=== PATIENT | female | born 1955 | race Caucasian/White ===

== ENCOUNTER → 2018-02-04 07:34 | Outpatient (CLI) | payer OTHER, SELFPAY ==
--- NOTE | 2018-02-04 13:54 | STRESSREP ---
Stress Test Report Date: 02/04/2018 Procedure: Exercise tolerance test/imaging study Indications: Chest pain; paroxysmal atrial fibrillation Consent: Per the patient Procedure: The patient exercised on a Juan protocol for 6 minutes and 22 seconds completing Stage II and 22 seconds of Stage III achieving a peak heart rate of 136 bpm (85 % predicted maximal heart rate) with a peak blood pressure 190/84 mmHg and a peak MET capacity of 7 METs. The baseline ECG demonstrated sinus bradycardia. The peak exercise ECG demonstrated somatic/motion artifact with no obvious ECG changes. There were occasional PACs and PVCs during exercise and occasional PVCs during recovery. The functional capacity was considered average. There was no complaint of chest discomfort during exercise or recovery. The examination was discontinued secondary to dyspnea and leg discomfort. Impression: 1. Technically adequate (percent predicted maximal heart rate greater than 85%) exercise tolerance test 2. Peak exercise ECG with somatic/motion artifact with no obvious ECG changes 3. There were occasional PACs and PVCs during exercise and occasional PVCs during recovery. 4. Nuclear images pending Myocardial perfusion imaging study: Technique: The patient was injected with 14.3 mCi of technetium 99m Cardiolite and subsequently rest SPECT Cardiolite nuclear imaging was obtained in the horizontal long, vertical long, and short axis views. The patient exercised on a Juan protocol for 6 minutes and 22 seconds completing Stage II and 22 seconds of Stage III achieving a peak heart rate of 136 bpm (85 % predicted maximal heart rate) with a peak blood pressure 190/84 mmHg and a peak MET capacity of 7 METs. The patient was injected with 44.7 mCi of technetium 99m Cardiolite and subsequently stress SPECT Cardiolite nuclear imaging was obtained in the horizontal long, vertical long, and short axis views. A gated Cardiolite study at peak stress was obtained. Interpretation: Rest and stress SPECT Cardiolite nuclear imaging status post realignment, normalization, and attenuation correction, demonstrates the appearance of subtle diminished tracer uptake in the mid anterior segments at rest and status post stress the appearance of more prominent diminished tracer uptake in the mid to distal anterior segments. There are similar type changes on the resting and stress polar map images. There is end systolic thickening and brightening. The gated Cardiolite study demonstrates myocardial thickening and inward wall motion. The reported LVEF is 65 %. Impression: 1. Rest and stress SPECT Cardiolite nuclear imaging demonstrate myocardial perfusion changes concerning for an area of stress-induced myocardial ischemia and portions of the mid to distal anterior segments, however, contribution from shifting soft tissue attenuation/artifact cannot be excluded. 2. The gated Cardiolite study reports an LVEF of 65 %. This note was generated with Share[employer] software. It may contain incorrect words, spelling, and punctuation that were not noted in checking the note before signing.
--- NOTE | 2018-02-04 14:04 | STRESSREP_ITS ---
Stress Test Report Date: 02/04/2018 Procedure: Exercise tolerance test/imaging study Indications: Chest pain; paroxysmal atrial fibrillation Consent: Per the patient Procedure: The patient exercised on a Juan protocol for 6 minutes and 22 seconds completing Stage II and 22 seconds of Stage III achieving a peak heart rate of 136 bpm (85 % predicted maximal heart rate) with a peak blood pressure 190/84 mmHg and a peak MET capacity of 7 METs. The baseline ECG demonstrated sinus bradycardia. The peak exercise ECG demonstrated somatic/motion artifact with no obvious ECG changes. There were occasional PACs and PVCs during exercise and occasional PVCs during recovery. The functional capacity was considered average. There was no complaint of chest discomfort during exercise or recovery. The examination was discontinued secondary to dyspnea and leg discomfort. Impression: 1. Technically adequate (percent predicted maximal heart rate greater than 85% ) exercise tolerance test 2. Peak exercise ECG with somatic/motion artifact with no obvious ECG changes 3. There were occasional PACs and PVCs during exercise and occasional PVCs during recovery. 4. Nuclear images pending Myocardial perfusion imaging study: Technique: The patient was injected with 14.3 mCi of technetium 99m Cardiolite and subsequently rest SPECT Cardiolite nuclear imaging was obtained in the horizontal long, vertical long, and short axis views. The patient exercised on a Juan protocol for 6 minutes and 22 seconds completing Stage II and 22 seconds of Stage III achieving a peak heart rate of 136 bpm (85 % predicted maximal heart rate) with a peak blood pressure 190/84 mmHg and a peak MET capacity of 7 METs. The patient was injected with 44.7 mCi of technetium 99m Cardiolite and subsequently stress SPECT Cardiolite nuclear imaging was obtained in the horizontal long, vertical long, and short axis views. A gated Cardiolite study at peak stress was obtained. Interpretation: Rest and stress SPECT Cardiolite nuclear imaging status post realignment, normalization, and attenuation correction, demonstrates the appearance of subtle diminished tracer uptake in the mid anterior segments at rest and status post stress the appearance of more prominent diminished tracer uptake in the mid to distal anterior segments. There are similar type changes on the resting and stress polar map images. There is end systolic thickening and brightening. The gated Cardiolite study demonstrates myocardial thickening and inward wall motion. The reported LVEF is 65 %. Impression: 1. Rest and stress SPECT Cardiolite nuclear imaging demonstrate myocardial perfusion changes concerning for an area of stress-induced myocardial ischemia and portions of the mid to distal anterior segments, however, contribution from shifting soft tissue attenuation/artifact cannot be excluded. 2. The gated Cardiolite study reports an LVEF of 65 %. This note was generated with cloudswaveation software. It may contain incorrect words, spelling, and punctuation that were not noted in checking the note before signing.
== END ==
PROVIDERS: Family Provider Internal Medicine; PCP Internal Medicine; Visit Provider Internal Medicine Cardiovascular Disease
DX: R07.9 Chest pain, unspecified (principal); I48.0 Paroxysmal atrial fibrillation; I34.0 Nonrheumatic mitral (valve) insufficiency; I36.1 Nonrheumatic tricuspid (valve) insufficiency; I10 Essential (primary) hypertension; E78.5 Hyperlipidemia, unspecified; Z79.01 Long term (current) use of anticoagulants
CPT/HCPCS: 78452; 93017; A9500

== ENCOUNTER → 2018-02-10 11:25 | Outpatient (CLI) | payer OTHER, SELFPAY ==
--- NOTE | 2018-02-10 11:28 | RAD_ITS ---
STUDY: X-RAY CHEST REASON FOR EXAM: Female, 62 years old. Chest pain. TECHNIQUE: PA and lateral views of the chest. COMPARISON: June 28, 2016 FINDINGS: The lungs are clear and expanded. There is no demonstrated pleural abnormality. Normal size heart. Normal mediastinum and amarilys. Normal visualized pulmonary arteries. There is atherosclerotic calcification of the aortic arch . There are diffuse degenerative changes of the visualized thoracic spine. Normal visualized ribs, clavicles, and shoulders. There is no demonstrated abnormality of the visualized soft tissue structures of the upper abdomen. RAD/Chest PA and Lateral IMPRESSION: No acute cardiopulmonary process. Electronically Signed: Leslye Sue MD at 17:31 EDT Tel , Service support ,
== END ==
PROVIDERS: Family Provider Internal Medicine; PCP Internal Medicine; Visit Provider Internal Medicine Cardiovascular Disease
DX: R94.39 Abnormal result of other cardiovascular function study (principal); R07.9 Chest pain, unspecified; I10 Essential (primary) hypertension; I34.0 Nonrheumatic mitral (valve) insufficiency; I36.1 Nonrheumatic tricuspid (valve) insufficiency; I48.0 Paroxysmal atrial fibrillation
CPT/HCPCS: 71046

== ENCOUNTER 2018-03-11 08:58 | Day surgery (SDC) | payer OTHER, SELFPAY ==
[2018-02-10 11:57] LABS: Hematocrit 40.6 % (37-47); Hemoglobin 13.6 g/dl (12.0-15.0); Mean Corp Hgb Conc 33.5 g/gl (32-36); Mean Corpuscular Hgb 29.6 pg (27.0-32.0); Mean Corpuscular Volume 88.5 fL (81-99); Mean Platelet Vol. 11.4 fl (6.2-12.0); Platelet Count 267 K/mm3 (150-450); RBC Distribution Width CV 13.9 % (11.6-14.6); RBC Distribution Width SD 44.7 fl (35.1-43.9); Red Blood Count 4.59 M/mm3 (4.2-5.4); Scan Indicated on CBC? Y/N NO; White Blood Count 6.2 K/mm3 (4.4-11.0)
[2018-02-10 12:02] LABS: International Normalized Ratio 1.8
[2018-02-10 12:03] LABS: Partial Thromboplast Time 37.7 Seconds (24.1-36.2)
[2018-02-10 12:29] LABS: Anion Gap 8 (5-15); BUN 11 mg/dL (7-18); Calcium,Total 9.2 mg/dL (8.5-10.1); Chloride 101 mmol/L (98-107); Creatinine, Serum 0.69 mg/dL (0.55-1.02); EST Glomerular Filtration Rate 93 mL/min (>60); Est Glom Filt Rate - Afr Amer 112 mL/min (>60); Glucose 102 mg/dL (74-106); Potassium 3.8 mmol/L (3.5-5.1); Sodium Level 137 mmol/L (136-145)
[2018-02-24 08:20] VITALS: BMI 38.0
--- NOTE | 2018-03-11 11:39 | CL.D_ITS ---
Patient Name: GREG AYON Study Date: 03/11/2018 Performing: Haile Mckee MD Ht: 66.92 inches 170 cm : 1955 Wt: 242.51 lbs 110 kg Age: 62 Gender: female BSA: 2.19 PROCEDURE(S) PERFORMED [id number]/LV CLINICAL PROFILE AND INDICATIONS Indications: Suspected CAD Heart Failure: None Stress/Imaging Stress Test w/SPECT MPI: Yes Result: PositiveStress Test with SPECT MPI: Positive Angina Classification Anginal Classification w/in 2 Weeks: CCS IV CAD Presentations: Other: chest pain / palpitations CONCLUSIONS Elevated Left Ventricular End Diastolic Pressure Normal LV size, wall motion,and systolic function LVEF: by LV gram 60 % Normal coronary arteries Mitral Valve Insufficiency Mild (partially PVC induced) RECOMMENDATIONS Risk factor modification Medical therapy DESCRIPTION OF PROCEDURE The patient arrived to the procedure lab. The risks and benefits of the procedure as well as a full d escription of our services here and current unavailability of surgical backup were fully explained to the patient and/or their significant other prior to the catheterization. The Timeout was completed, verifying the correct patient and procedure. The patient's procedural site was prepped and draped in the usual fashion. Local anesthetic was given subcutaneously to right groin region with Lidocaine 2%. Using a modified Seldinger technique, arterial access was obtained via the right femoral artery, a 4 Fr sheath was inserted Left Coronary Artery selective angiography was performed in multiple views us ing a 4 Fr. JL5 catheter. Right Coronary Artery selective angiography was then performed in multiple views using a 4 Fr. 3DRC catheter. Left Ventriculography was performed in BROOKS projection using a 4 Fr . Pigtail catheter. LV to AO pullback pressures were then recorded.The arterial sheath was pulled and manual compression applied until hemostasis is achieved. CORONARY ANGIOGRAPHY DOMINANCE: Right Dominant LEFT HEART ASSESSMENT Left Ventricular Ejection Fraction: by LV Gram 60 % Normal LV wall motion Normal Left Ventricular End Diastolic Pressure LVEDP: 19 mmHg LEFT MAIN: Angiographically normal LEFT ANTERIOR DECENDING ARTERY: Angiographically normal CIRCUMFLEX ARTERY: Angiographically normal RIGHT CORONARY ARTERY: Angiographically normal VALVE FINDINGS: Mitral Valve Insufficiency - Grade 1 (partially PVC induced) AORTIC ROOT: Angiographically normal Angiographically normal COMPLICATIONS No Complications PROCEDURE MEDICATIONS Versed 1 mg IV Versed 1 mg IV SUMMARY OF HEMODYNAMIC DATA Time AIR REST ECG 09:28:16 ECG 10:47:51 AO 122/78 (98) SA 11:04:16 LV 138/-1, 16 11:11:54 LV 150/-4, 19 11:12:02 LV 133/-4, 16 11:12:52 LV 141/-6, 19 11:12:59 LVp 143/-11, 20 11:13:12 AOp 145/70 (99) 11:13:17 Signed By Haile Mckee MD On 03/11/2018 11:38:15 Haile Mckee MD
== END 2018-03-11 15:43 ==
LOC: CLSP 09:00
PROVIDERS: Family Provider Internal Medicine; PCP Internal Medicine; Visit Provider Internal Medicine Cardiovascular Disease
DX: I34.0 Nonrheumatic mitral (valve) insufficiency (principal); I36.1 Nonrheumatic tricuspid (valve) insufficiency; I10 Essential (primary) hypertension; R94.39 Abnormal result of other cardiovascular function study; E78.5 Hyperlipidemia, unspecified; I48.0 Paroxysmal atrial fibrillation; Z79.01 Long term (current) use of anticoagulants; F41.9 Anxiety disorder, unspecified; K21.9 Gastro-esophageal reflux disease without esophagitis; Z79.82 Long term (current) use of aspirin; Z79.899 Other long term (current) drug therapy
CPT/HCPCS: 36415; 80048; 85027; 85610; 85730; 93458; 99152; 99153; J7040; C1769; C1894; Q9967

== ENCOUNTER 2018-04-19 14:49 | Emergency (ER) | payer OTHER, SELFPAY ==
[2018-04-19 14:50] VITALS: BP 148/79; PULSE 74; RESP 20; TEMP 36.8; O2SAT 97; BMI 37.9
[2018-04-19 15:23] LABS: International Normalized Ratio 1.5; Prothrombin Time (Protime)PT. 17.9 SECONDS (11.7-14.9)
[2018-04-19 15:33] LABS: Absolute Lymphocyte Count 1.31 X10^3/ul (0.83-4.51); Absolute Neutrophil Count 4.9 X10^3/uL (2.0-7.7); Basophil# 0.01 X10^3/uL; Basophil% 0.1 % (0-1); Eosinophil# 0.09 X10^3/uL; Eosinophils% 1.3 % (0-5); Hematocrit 40.7 % (37-47); Hemoglobin 13.4 g/dl (12.0-15.0); Lymphocyte # 1.31 X10^3/ul (4.0); Lymphocyte % 18.9 % (19-41); Mean Corp Hgb Conc 32.9 g/gl (32-36); Mean Corpuscular Hgb 29.6 pg (27.0-32.0); Mean Corpuscular Volume 89.8 fL (81-99); Monocyte% 8.7 % (0-10); Neutrophil % 70.7 % (47-70); Platelet Count 251 K/mm3 (150-450); RBC Distribution Width CV 14.8 % (11.6-14.6); RBC Distribution Width SD 48.3 fl (35.1-43.9); Red Blood Count 4.53 M/mm3 (4.2-5.4); White Blood Count 6.9 K/mm3 (4.4-11.0)
[2018-04-19 15:34] LABS: Anion Gap 9 (5-15); BUN 11 mg/dL (7-18); BUN/Creat Ratio 17.4 RATIO (10-20); Calcium,Total 8.8 mg/dL (8.5-10.1); Chloride 103 mmol/L (98-107); Creatinine, Serum 0.63 mg/dL (0.55-1.02); EST Glomerular Filtration Rate 101 mL/min (>60); Est Glom Filt Rate - Afr Amer 123 mL/min (>60); Glucose 108 mg/dL (74-106); Potassium 3.8 mmol/L (3.5-5.1); Sodium Level 138 mmol/L (136-145)
[2018-04-19 15:37] LABS: POSITIVE COUNT NO; POSITIVE DIFFERENTIAL NO; POSITIVE MORPHOLOGY NO
[2018-04-19 16:00] VITALS: BP 148/94; PULSE 67; RESP 18; O2SAT 94
[2018-04-19 16:31] LABS: AST(SGOT) 30 U/L (15-37); Alanine Aminotransfer ALT/SGPT 37 U/L (13-56); Albumin, Serum 3.9 g/dL (3.2-5.0); Alkaline Phosphatase 88 U/L (45-117); Bilirubin, Direct 0.07 mg/dL (0.00-0.30); Globulin 3.6 g/dL (2.2-4.2); Lipase 127 U/L (73-393); Protein, Total 7.5 g/dL (6.4-8.2)
--- NOTE | 2018-04-19 16:53 | ED.VISSUMM ---
- ER Visit Summary Date of Service: 04/19/18 Chief Complaint: Left side chest pain with pleuritic component 4 months that has gotten worse over the past several days to week. History of Present Illness: The patient is a 62 F who presents with left-sided pain that has a pleuritic component. She reports she cannot lie on her left side. She reports pain with use of her left arm. She also reports pain with breathing. There is no history of PE or DVT. She is presently on Xarelto paroxysmal A. fib and ventricular ectopy. She had a cardiac catheterization in February 2018 and was normal. Therefore, one can conclude that her chest pain is not cardiac in etiology. Patient denies any history of trauma. She denies any skin lesions or rash. She does report intolerance to greasy and fried foods. She denies any vomiting, diarrhea, black or maroon stool. She does report nausea occasionally. She does report pain occasionally radiates to her back. She does have history of reflux. She did have a cough earlier this week. The cough is nonproductive. She has no URI symptoms. She denies any leg pain, swelling discoloration. She has no prior history of PE or DVT. Past medical history of GERD, hypertension, hypercholesteremia, paroxysmal atrial fibrillation and hiatal hernia Physical Examination: Vital signs are remarkable for an elevated blood pressure of 148/79. Pulse signs otherwise unremarkable. BMI is 37.9. HEENT exam is unremarkable. Heart is regular with a grade 1/6 systolic murmur heard right side of the sternum over the tricuspid listening area. There is no radiation into the left axilla. She does have reproducible pain midclavicular line on the left breast. There is no crepitus subcutaneous air or dermatologic abnormalities noted. Heart is regular without murmur, gallop or rub. S1 and S2 are normal. Lungs are clear to auscultation with good movement of air bilaterally. At the time of my history monitor revealed bigeminy. She is presently not in bigeminy. Abdomen soft with tenderness in the epigastric, right upper quadrant or left upper quadrant with a negative Thrasher sign. There is no CVA tenderness noted. There is no asymmetry, swelling, discoloration, leg vein distention, palpable cords or tenderness along the distribution of the deep venous system. Test Results: CBC unremarkable. Hepatic lipase are unremarkable. CBC, PT/INR and troponin were ordered per nursing staff prior to me seeing the patient. They were ordered per nursing protocol and not by me. Emergency Department Course and Treatment: With a normal cardiac catheterization February 2018 her chest pain is not cardiac in etiology i.e. coronary disease. Therefore a troponin was not ordered. Because she reports intolerance to greasy and fried foods and has tenderness in both the right and left upper quadrant hepatic, lipase and CBC were ordered. Because she has a pleuritic component a chest x-ray was obtained. The chest x-ray reveals no acute process. 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 Treatment Plan: Follow-up with primary care physician Dr. Jiménez Disposition: Discharged to home with friend Impression: Anterior left-sided chest pain and abdominal pain with pleuritic component This note was generated with [employer] dictation software. It may contain incorrect words, spelling, and punctuation that were not noted in review of the chart prior to signing ED Disposition - Plan for ED Patient: Disposition: Home or Assisted Living Chief Complaint: Chest Pain Instructions: ED Chest Pain NonCardiac, ED Chest Pain Pleurisy Prescriptions: Prednisone 40 mg PO DAILY #10 tab Referrals: Nina Jiménez DO [Primary Care Provider] - 3-5 Days if not improving
== END 2018-04-19 17:26 | disposition home or self-care (01) ==
LOC: ED 17:11
PROVIDERS: Emergency Provider Emergency Medicine; Family Provider Internal Medicine; PCP Internal Medicine
DX: R07.89 Other chest pain (principal); I48.0 Paroxysmal atrial fibrillation; I10 Essential (primary) hypertension; K21.9 Gastro-esophageal reflux disease without esophagitis; E78.00 Pure hypercholesterolemia, unspecified; E66.9 Obesity, unspecified; Z68.37 Body mass index [BMI] 37.0-37.9, adult; Z79.82 Long term (current) use of aspirin; Z79.01 Long term (current) use of anticoagulants; Z79.899 Other long term (current) drug therapy
CPT/HCPCS: 71045; 80048; 80076; 83690; 84484; 85025; 85610; 93005; 99284

== ENCOUNTER → 2018-07-21 13:10 | Outpatient (CLI) | payer OTHER, SELFPAY ==
--- NOTE | 2018-07-21 13:16 | RAD_ITS ---
STUDY: X-RAY - RIGHT KNEE REASON FOR EXAM: Female, 63 years old. Bilateral knee pain TECHNIQUE: 2 view(s) of the knee. COMPARISON: None. FINDINGS: Normal visualized distal femur. Normal visualized proximal tibia and fibula. Normal proximal tibiofibular articulation. There is severe degenerative arthrosis of the medial femorotibial compartment with severe joint space narrowing. There is severe degenerative arthrosis of the lateral femorotibial compartment with severe joint space narrowing. There is severe degenerative arthrosis of the patellofemoral articulation. There is no suprapatellar effusion. RAD/Knee 1 or 2 Views IMPRESSION: Severe tricompartmental degenerative changes. Electronically Signed: Clayton Newman MD at 22:53 EST , Service support ,
--- NOTE | 2018-07-21 13:17 | RAD_ITS ---
STUDY: X-RAY - LEFT KNEE REASON FOR EXAM: Female, 63 years old. Bilateral knee pain TECHNIQUE: 2 view(s) of the knee. COMPARISON: None. FINDINGS: Normal visualized distal femur. Normal visualized proximal tibia and fibula. Normal proximal tibiofibular articulation. There is severe degenerative arthrosis of the medial femorotibial compartment with severe joint space narrowing. There is severe degenerative arthrosis of the lateral femorotibial compartment with severe joint space narrowing. There is severe degenerative arthrosis of the patellofemoral articulation. There is no suprapatellar effusion. RAD/Knee 1 or 2 Views IMPRESSION: Severe tricompartmental arthritic changes. Electronically Signed: Clayton Newman MD at 22:52 EST , Service support ,
--- OUTSIDE RECORDS SUMMARY | 2018-09-13 20:59 | XMS RPT_ITS | Continuity of Care Document ---
:1955 Author Organization [facility] Address [facility] [address] Phone Care Team Providers Name Role Phone Nina Jiménez DO Unavailable Walter TOBAR, Bright Martin Unavailable Yari Huddleston Unavailable Dr. Roxana Newman MD Unavailable Juani Sahu Unavailable Rylee TOBAR, Haile Shin Unavailable Peggy Marie Unavailable Unavailable CHRISTINA Nuñez Unavailable Unavailable Unavailable Unavailable Problems Name Dates Details Abdominal Pain,Unspecified Site (R10.9, 789.00) Comments: controlled off of hctz Status: Active Achilles tendinitis of left lower extremity (M76.62, 726.71) Status: Active Acute left ankle pain (M25.572, 719.47) Status: Active Anxiety (F41.9, 300.00) Status: Active Atrial fibrillation, rapid (I48.91, 427.31) Status: Active Benign essential hypertension (I10, 401.1) Status: Active Bladder prolapse, female, acquired (N81.10, 618.01) Status: Active BMI 37.0-37.9, adult (Z68.37, V85.37) Status: Active BMI 38.0-38.9,adult (Z68.38, V85.38) Status: Active BMI 38.0-38.9,adult (Z68.38, V85.38) Status: Active Cervical radiculopathy (M54.12, 723.4) Status: Active CHEST PAIN (R07.9, 786.59) Comments: atypical more like lungs pain right scapula but sore to palp. feels beter with exertion not think cardiac but chekc EKG and told pt if normal and worsen to ER Status: Active Chronic anticoagulation (Z79.01, V58.61) Status: Active Chronic epigastric pain (R10.13, 789.06) Comments: on ppi -- tries to limit coffee-- it waxes and wanes Status: Active Chronic pain of both knees (M25.561, 719.46) Comments: sched injections for knee-- both on same day -- will hold anticoaguilation-- pt interested in LAMBERT -- will update x-rays give steriods again since gives temporary relief in past-- wt loss counseling done- Status: Active Controlled diabetes mellitus type II without complication (E11.9, 250.00) Status: Active Cough (R05, 786.2) Status: Active DISPLACEMENT, CERVICAL DISC W/O MYELOPATHY (722.0) Status: Active Drug side effects (T88.7XXA, 995.20) Status: Active Encounter for screening mammogram for breast cancer (Renamed from Encounter for screening mammogram for malignant neoplasm of breast) (Z12.31, V76.12) Status: Active Epigastric pain (R10.13, 789.06) Status: Active Flu-like symptoms (R68.89, 780.99) Status: Active Gerd (K21.9, 530.81) Status: Active Hypercholesteremia (E78.00, 272.0) Status: Active Influenza vaccination declined (Renamed from Refused influenza vaccine) (Z28.21, V64.06) Comments: i dont take themi dont take them Status: Active Influenza vaccination declined (Renamed from Refused influenza vaccine) (Z28.21, V64.06) Status: Active Ingrown right big toenail (L60.0, 703.0) Status: Active Irritable bowel syndrome (K58.9, 564.1) Comments: stable Status: Active Knee pain, right (M25.561, 719.46) Comments: with knee pain, for years on Nsaids, uses ice, needs MRI Status: Active Lumbago (M54.5, 724.2) Status: Active Menopausal state (N95.1, 627.2) Status: Active Non-smoker (Z78.9, V49.89) Status: Active Non-smoker (Z78.9, V49.89) Status: Active NSAID long-term use (Z79.1, V58.64) Status: Active Nutritional counseling (Z71.3, V65.3) Status: Active Osteoarthritis of left knee, unspecified osteoarthritis type (M17.12, 715.96) Status: Active Other specified viral infection, in conditions classified elsewhere and of unspecified site (B97.89, 079.89) Comments: check flu test. with headache, ache and fatigue will assure not flu. but ? early viral. 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 not sure if start so rest ibu with food and fliuds worsen to ER Status: Active Pain in unspecified joint (M25.50, 719.40) Status: Active Physical exam WITHOUT abnormal findings (Renamed from Encounter for routine adult health examination without abnormal findings) (Z00.00, V70.0) Status: Active Pneumococcal vaccination given (Z23, V06.6) Status: Active Screening for colon cancer (Z12.11, V76.51) Status: Active Stress reaction (F43.0, 308.9) Status: Active Ultrasound scan abnormal (R93.8, 793.99) Status: Active Umbilical hernia without obstruction and without gangrene (K42.9, 553.1) Status: Active Uncontrolled type II diabetes mellitus (E11.65, 250.02) Status: Active Unspecified Diagnosis Status: Active Unspecified Diagnosis Status: Active Unspecified osteoarthritis, unspecified site (M19.90, 715.90) Comments: avoiding sugar and wt loss discussed againcant do nsaid with chr anticoagulation Status: Active Uterine fibroid (D25.9, 218.9) Status: Active Medications Name Dates Details ALIGN, 4MG (Oral Capsule) 1 (one) Capsule daily for 0 days Quantity: 30 {Capsule} Refills: 0 Ordered:09-Jul-2014 Kacey Patton CNP Start : 09-Jul-2014 Active Citalopram Hydrobromide 20 MG Oral Tablet 1.5 Tablet qd for 90 days Quantity: 135 {Tablet} Refills: 3 Ordered:14-Jul-2018 Nathaly Jiménez DO, DO, Kathleen Start : 14-Jul-2018 Active Comments:new dose HydroCHLOROthiazide 25 MG Oral Tablet 1 Tablet qd for 0 days Quantity: 90 {Tablet} Refills: 3 Ordered:20-Nov-2017 Trisha Emery MD Start : 20-Nov-2017 Active Metoprolol Succinate ER 100 MG Oral Tablet Extended Release 24 Hour 1 (one) Tablet ER 24HR qd for 0 days Quantity: 90 {Tablet} Refills: 3 Ordered:15-Jan-2018 Nathaly Jiménez DO, DO, Kathleen Start : 15-Jan-2018 Active Norvasc 5 MG Oral Tablet 1 (one) Tablet qd for 0 days Quantity: 90 {Tablet} Refills: 3 Ordered:11-Mar-2018 Nathaly Jiménez DO, DO, Kathleen Start : 11-Mar-2018 Active Norvasc 5 MG Oral Tablet 1 (one) Tablet qd for 0 days Quantity: 90 {Tablet} Refills: 3 Ordered:11-Mar-2018 Nathaly Jiménez DO, DO, Kathleen Start : 11-Mar-2018 Active ONETOUCH CLUB LANCETS FINE PT (Miscellaneous) 1 (one) Misc tid for 0 days Quantity: 1 {Box} Refills: 3 Ordered:16-Aug-2014 Nathaly Jiménez DO, DO, Kathleen Start : 16-Aug-2014 Active ONETOUCH ULTRA 2, w/Device (Kit) 1 (one) Kit tid for 0 days Quantity: 1 Kit Refills: 0 Ordered:16-Aug-2014 Nathaly Jiménez DO, DO, Kathleen Start : 16-Aug-2014 Active OneTouch Ultra Blue In Vitro Strip 1 (one) Strip tid for 0 days Quantity: 270 {Strip} Refills: 3 Ordered:03-Jul-2018 Trisha Emery MD Start : 03-Jul-2018 Active Protonix 40 MG Oral Tablet Delayed Release 1 (one) Tablet DR two times daily for 0 days Quantity: 180 {Tablet} Refills: 3 Ordered:25-Sep-2017 Zo Jiménez DOeenFearodulce Nina Start : 25-Sep-2017 Active Comments:it does not give as bad diarrhea like omeprazole does Xarelto 20 MG Oral Tablet 1 (one) Tablet qd for 90 days Quantity: 90 {Tablet} Refills: 1 Ordered:14-Jul-2018 Sarah Jiménez DOdulce Nina Start : 14-Jul-2018 Active Aspirin EC 325 MG Oral Tablet Delayed Release 1 (one) Tablet DR QD for 0 days Quantity: 30 {Tablet} Refills: 0 Ordered:23-Aug-2016 Geovanna Nuñez LPN Start : 18-May-2016 End : 23-Aug-2016 Inactive ATIVAN, 0.5MG (Oral Tablet) 1 Tablet qd prn for 0 days Quantity: 30 {Tablet} Refills: 0 Ordered:02-Aug-2010 Geovanna Nuñez LPN Start : 26-Jun-2010 End : 02-Aug-2010 Inactive Comments:thirty AUGMENTIN, 875-125MG (Oral Tablet) 1 (one) Tablet bid for 10 days Quantity: 20 {Tablet} Refills: 0 Ordered:26-Apr-2014 Tino ALONSO ZoBhavya ALONSO Nina Start : 26-Apr-2014 End : 06-May-2014 Inactive DEBBIE CONTOUR TEST (In Vitro Strip) 1 Strip tid for 30 days Quantity: 90 {Strip} Refills: 6 Ordered:16-Aug-2014 Sushila Harris Start : 08-Jan-2013 End : 16-Aug-2014 Inactive Keflex 500 MG Oral Capsule 1 (one) Capsule Capsule qid for 0 days Quantity: 40 {Capsule} Refills: 0 Ordered:26-Dec-2016 Geovanna Nuñez LPN Start : 23-Aug-2016 End : 26-Dec-2016 Inactive METAXALONE, 800MG (Oral Tablet) 1 Tablet tid for 30 days Quantity: 90 {Tablet} Refills: 3 Ordered:07-Nov-2011 Geovanna Nuñez LPN Start : 29-Aug-2011 End : 07-Nov-2011 Inactive METFORMIN HCL, 500MG (Oral Tablet Extended Release 24 Hour) 1 (one) Tablet ER 24HR Daily for 0 days Quantity: 30 {Tablet_ER_24HR} Refills: 3 Ordered:16-Oct-2010 Lidya Stephenson LPN Start : 29-Jul-2008 End : 16-Oct-2010 Inactive No Known Historical Medications OMEPRAZOLE, 20MG (Oral Capsule Delayed Release) 1 (one) Capsule DR Capsule DR daily for 0 days Quantity: 30 {Tablet} Refills: 3 Ordered:16-Aug-2014 Sushila Harris Start : 07-Jul-2014 End : 16-Aug-2014 Inactive OMEPRAZOLE, 40MG (Oral Capsule Delayed Release) [address] qd for 0 days Quantity: 90 {Capsule} Refills: 3 Ordered:13-Jan-2014 Geovanna Nuñez LPN Start : 12-Oct-2013 End : 13-Jan-2014 Inactive PANTOPRAZOLE SODIUM, 40MG (Oral Tablet Delayed Release) 1 (one) Tablet DR Tablet DR bid before breakfast and dinner for 0 days Quantity: 60 {Tablet} Refills: 3 Ordered:12-Oct-2015 Geovanna Nuñez LPN Start : 09-Jul-2014 End : 12-Oct-2015 Inactive PREDNISONE, 20MG (Oral Tablet) 1 (one) Tablet Tablet qd with food for 0 days Quantity: 3 {Tablet} Refills: 0 Ordered:12-Jan-2016 Geovanna Nuñez LPN Start : 02-Nov-2015 End : 12-Jan-2016 Inactive PREVACID, 30MG (Oral Capsule Delayed Release) 1 (one) Capsule DR Daily for 0 days Quantity: 30 {Capsule_DR} Refills: 3 Ordered:04-Jun-2008 Geovanna Nuñez LPN Start : 04-Jun-2008 End : 08-Jun-2008 Inactive TESSALON PERLES, 100MG (Oral Capsule) 1 (one) Capsule tid for 0 days Quantity: 30 {Capsule} Refills: 0 Ordered:12-Oct-2015 Geovanna Nuñez LPN Start : 08-Dec-2014 End : 12-Oct-2015 Inactive TOPICORT LP, 0.05% (External Cream) apply to affected area Cream bid for 0 days Quantity: 30 {Cream} Refills: 0 Ordered:26-Jun-2010 Geovanna Nuñez LPN Start : 30-Mar-2010 End : 26-Jun-2010 Inactive ULTRAM, 50MG (Oral Tablet) 1 (one) Tablet q 8hr prn for 0 days Quantity: 60 {Tablet} Refills: 0 Ordered:18-Sep-2013 Sushila Harris Start : 08-Jul-2013 End : 18-Sep-2013 Inactive VICODIN, 5-500MG (Oral Tablet) 1-2 Tablet q4-6h prn for 0 days Quantity: 60 {Tablet} Refills: 0 Ordered:07-Nov-2011 Geovanna Nuñez LPN Start : 29-Aug-2011 End : 07-Nov-2011 Inactive Comments:sixty ZANAFLEX, 4MG (Oral Tablet) 1 Tablet tid prn for 0 days Quantity: 60 {Tablet} Refills: 0 Ordered:07-Nov-2011 Geovanna Nuñez LPN Start : 29-Aug-2011 End : 07-Nov-2011 Inactive Comments:sixty ZIAC, 10-6.25MG (Oral Tablet) 1 (one) Tablet Tablet qd for 0 days Quantity: 90 {Tablet} Refills: 3 Ordered:12-Jan-2016 Geovanna Nuñez LPN Start : 12-Oct-2015 End : 12-Jan-2016 Inactive ZITHROMAX Z-HARDY, 250MG (Oral Tablet) 1 (one) Tablet TAD for 0 days Quantity: 1 {Package} Refills: 0 Ordered:12-Oct-2015 Geovanna Nuñez LPN Start : 08-Dec-2014 End : 12-Oct-2015 Inactive ZyrTEC Allergy 10 MG Oral Tablet 1 (one) Tablet Tablet daily for 0 days Quantity: 30 {Tablet} Refills: 0 Ordered:23-Aug-2016 Geovanna Nuñez LPN Start : 08-Dec-2014 End : 23-Aug-2016 Inactive OMEPRAZOLE, 40MG (PO Cap CR) 1 qd for 0 days Refills: 0 Ordered:08-Jun-2008 Geovanna Nuñez LPN Start : 08-Jun-2008 End : 08-Jun-2008 Discontinued Comments:This order discontinued per [employer]. PENLAC, 8% (External Solution) apply Solution topically to nail qd for 12 months for 90 days Quantity: 1 {QS} Refills: 3 Ordered:21-Jun-2014 Magali Phillips LPN Start : 16-Sep-2013 End : 21-Jun-2014 Discontinued Comments:QS for 90 days Allergies and Adverse Reactions Name Dates Details No Known Allergies (Allergy) Onset: 12-Jan-2016 Status: Inactive Pneumovax 23 *VACCINES* (Allergy) Status: Active Comments: pain, swelling, felt terrible, couldnt sleep- Does not want one again Past Medical History Name Dates Details Abnormal EKG (R94.31, 794.31) Status: Inactive as of 26-Jul-2017 Back pain (M54.9, 724.5) Status: Inactive as of 15-Nov-2014 BMI 33.0-33.9,adult (Z68.33, V85.33) Status: Resolved as of 10-May-2017 Breast mass (N63.0, 611.72) Status: Inactive as of 12-Oct-2015 Bronchitis (J40, 490) Status: Inactive as of 12-Oct-2015 Cellulitis (L03.90, 682.9) Status: Resolved as of 24-May-2014 Diarrhea (R19.7, 787.91) Status: Inactive as of 13-Jan-2014 Dysfunctional uterine bleeding (N93.8, 626.8) Status: Resolved as of 08-May-2012 Finger infection (L08.9, 686.9) Status: Inactive as of 15-Nov-2014 High potassium (E87.5, 276.7) Status: Resolved as of 10-May-2017 Hypertension (I10, 401.9) Status: Inactive as of 23-Aug-2016 Indigestion (K30, 536.8) Status: Inactive as of 15-Nov-2014 Laryngitis (J04.0, 464.00) Status: Inactive as of 08-Apr-2013 LYMPHADENITIS, ACUTE (683.) (683) Status: Resolved as of 08-May-2012 Need for prophylactic vaccination and inoculation against influenza (Z23, V04.81) Status: Inactive as of 03-Jul-2013 Other abnormal finding of urine (R82.99, 791.9) Status: Inactive as of 13-Jan-2014 Poison lb (L23.7, 692.6) Status: Inactive as of 08-Apr-2013 RLQ abdominal pain (R10.31, 789.03) Status: Resolved as of 20-Nov-2017 Screening for breast cancer (Z12.39, V76.10) Status: Inactive as of 03-Jul-2013 Sinusitis, acute (J01.90, 461.9) Status: Inactive as of 03-Jul-2013 Unspecified Diagnosis Status: Inactive as of 03-Jul-2013 Procedures Procedure Dates Details PNEUM VAC ADLT/IMUMNOSPR, Date: 14-Nov-2015 Completed 14-Nov-2015 SBC/INTRM (42021) Comments: Lot:[id number]:04/05/17Dose:0.5mgRoute:imSite:david Boo By:WILLI signed Cardioversion Completed Comments: 2015 Colonoscopy Completed Comments: 07-27-08 - Diverticulitis Diverticulitis (562.11) Completed Comments: Colonoscopy 07-27-08 lt finger sx Completed Comments: 03/01 Date Value Details 22-Apr-2018 12 Lead Electrocardiogram Result: Comments: See Note; NOTES: [facility] Cardiovascular Services [address] [place] [address] 12 Lead EKG 04/19/18 1456 MR#: [id number] Acct: [id number] Name: NINA AYON ep #: [id number] : 1955 62 From: Bright Peng MD Attending Dr: Status: DEP ER Ordering Dr: Cedric Sylvester MD Date: 04/19/18 Location: ED Sex: F C Admitted: Test Reason : CP Blood Pressure : /* mmHG Vent. Rate : 078 BPM Atrial Rate : 078 BPM P-R Int : 158 ms QRS Dur : 098 ms QT Int : 400 ms P-R-T Axes : 053 039 059 degrees QTc Int : 456 ms Sinus rhythm with frequent Premature ventricular c omplexes in a pattern of bigeminy Possible Left atrial enlargement Borderline ECG Confirmed by BRIGHT PENG ([id number]), editor in chief newspaper OBDULIO PURDY ([id number]) on 04/22/2018 1:27:45 PM Referred By: JOHN Confirmed By: BRIGHT PENG 04/22/18 1327 Date Bright Peng MD CC: Nina Jiménez DO; Cedric Sylvester MD Signed 19-Apr-2018 Emergency Department Summary Result: Comments: See Note; NOTES: [facility] Medical Records Department [address] [place] [address] Emergency Department Summary 04/19/18 1653 MR#: [id number] Acct: [id number] Name: NINA AYON Rep #: [id number] : 1955 62 From: Cedric Sylvester MD PCP: Nina Jiménez DO Status: PRE ER - ER Visit Summary Date of Service: 04/19/18 Chief Complaint: Left side chest pain with pleuritic component 4 months that has gotten worse over the past several days to week. History of Present Illness: The patient is a 62 F who presents with left-sided pain that has a pleuritic componen t. She reports she cannot lie on her left side. She reports pain with use of her left arm. She also reports pain with breathing. There is no history of PE or DVT. She is presently on Xarelto paroxysmal A. fib and ventricular ectopy. She had a cardiac catheterization in February 2018 and was normal. Therefore, one can conclude that her chest pain is not cardiac in etiology. Patient denies any history of t rauma. She denies any skin lesions or rash. She does report intolerance to greasy and fried foods. She denies any vomiting, diarrhea, black or maroon stool. She does report nausea occasionally. She does report pain occasionally radiates to her back. She does have history of reflux. She did have a cough earlier this week. The cough is nonproductive. She has no URI symptoms. She denies any leg pain, swe lling discoloration. She has no prior history of PE or DVT. Past medical history of GERD, hypertension, hypercholesteremia, paroxysmal atrial fibrillation and hiatal hernia Physical Examination: Vital signs are remarkable for an elevated blood pressure of 148/79. Pulse signs otherwise unremarkable. BMI is 37.9. HEENT exam is unremarkable. Heart is regular with a grade 1/6 systolic murmur heard right side of the sternum over the tricuspid listening area. There is no radiation into the left axilla. She does have reproducible pain midclavicular line on the left breast. There is no crepitus subcutaneo us air or dermatologic abnormalities noted. Heart is regular without murmur, gallop or rub. S1 and S2 are normal. Lungs are clear to auscultation with good movement of air bilaterally. At the time of my history monitor revealed bigeminy. She is presently not in bigeminy. Abdomen soft with tenderness in the epigastric, right upper quadrant or left upper quadrant with a negative Thrasher sign. There is no CVA tenderness noted. There is no asymmetry, swelling, discoloration, leg vein distention, palpable cords or tenderness along the distribution of the deep venous system. Test Results: CBC unremarkable . Hepatic lipase are unremarkable. CBC, PT/INR and troponin were ordered per nursing staff prior to me seeing the patient. They were ordered per nursing protocol and not by me. Emergency Department Cou rse and Treatment: With a normal cardiac catheterization February 2018 her chest pain is not cardiac in etiology i.e. coronary disease. Therefore a troponin was not ordered. Because she reports intolerance to greasy and fried foods and has tenderness in both the right and left upper quadrant hepatic, lipase and CBC were ordered. Because she has a pleuritic component a chest x-ray was obtained. The chest x -ray reveals no acute process. 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 Treatment Plan: Follow-up with primary care physician Dr. Jiménez Disposition: Discharged to home with friend Impression: Anterior left-sided chest pain and abdominal pain with pleuritic component This note was generated with [employer] dictation software. It may contain incorrect words, spelling, and p unctuation that were not noted in review of the chart prior to signing ED Disposition - Plan for ED Patient: Disposition: Home or Assisted Living Chief Complaint: Chest Pain Instructions: ED Chest Pa in NonCardiac, ED Chest Pain Pleurisy Prescriptions: Prednisone 40 mg PO DAILY #10 tab Referrals: Nina Jiménez, [Primary Care Provider] - 3-5 Days if not improving What to do if you have Proble ms For any increased pain, shortness of breath, bleeding, nausea or vomiting, chest pain, or any unexpected problems, contact your Primary Care Provider. Call [facility] ([phone]) or report to the closest Emergency Room. Call 911 if necessary. 04/19/18 1701 <Electronically signed by Cedric Sylvester MD> Date Cedric Sylvester MD Cosig ner Signature (If Indicated): Date CC: Nina Jiménez DO 19-Apr-2018 Chest 1 View (Portable) Result: Comments: See Note; NOTES: [facility] Imaging Services [address] [place] [address] Chest 1 View (Portable) MR#: [id number] Acct: [id number] Name: NINA AYON Rep #: [id number] : 1955 F 62 From: Dolly Hardy MD PCP: Nina Jiménez DO Status: PRE ER Study: Chest 1 View (Portable) Date of Exam: 04/19/18 Exam# [id number] Ordering Dr: Cedric Sylvester MD STUDY: X-RAY C HEST REASON FOR EXAM: Female, 62 years old. Chest pain TECHNIQUE: Single AP portable view of the chest. COMPARISON: February 10, 2018 chest x-ray FINDINGS: The lungs are clear and expanded. There is no demonstrated pleural abnormality. Normal size heart. Normal mediastinum and amarilys. Normal visualized pulmonary arteries. Normal visualized aortic arch and descending thoracic aorta. There are diffuse degenerative changes of the visualized thoracic spine. Normal visualized ribs, clavicles, and shoulders. There is no demonstrated abnormality of the visualized soft tissue structures of the upper abdomen. RAD/Chest 1 View (Portable) IMPRESSION: Degenerative changes, as described above. No demonstrated acute c ardiopulmonary process. Electronically Signed: Dolly Hardy MD at 16:16 EDT Tel , Service support , CC: Nina Jiménez DO; Cedric Sylvester MD Director Of Exhibits: Signed 10-Feb-2018 Cardiology Visit Report Result: Comments: See Note; NOTES: [facility] [address] [place] [address] OFFICE VISIT Date of Service: 02/10/18 MR#: [id number] Acct: [id number] Name: NINA AYON Rep #: [id number] : 1955 Provider: KATHY Snider Age/Sex: 62/F Location: [facility] [place] Status: Signed HPI HPI Details: NINA AYON, is a 62 F who presents to the office today for a cardiovascul ar outpatient follow-up. She has a history of paroxysmal atrial fibrillation, mitral valve insufficiency, tricuspid valve insufficiency, hypertension, and hyperlipidemia. After last office visit she und erwent a nuclear stress test that was considered abnormal. She will be undergoing a heart catheterization for further evaluation. Pt. denies chest, arm, jaw, or neck discomfort. Her exercise tolerance is stable though limited. Pt. denies symptoms of CHF, palpitations, lightheadedness, dizziness, near syncope, or syncopal episodes. Pt. denies edema or claudication issues. Pt. denies orthopnea, PND, fe domingo, chills, blood in urine, blood in stool, myalgia, or unexplainable fatigue. She does acknowledge an increase in overall anxiety/stress. Intake Vital Signs02/10/18 Height 5 ft 7 in 02/10/18 Weight : 243 lb 8 oz 02/10/18 Body Mass Index (BMI) 38.1 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: Update H AND P for LHC Accompanied by: Friend Is patient in pain?: Yes (neck and chest pain- Throbbing ) Pain scale (1-10): 7 Al annia pneumococcal vaccine Allergy (Verified 01/09/18 10:13) Unknown seasonal allergies Allergy (Mild, Uncoded 02/10/18 10:43) itching Medications Citalopram Hydrobromide [Citalopram HBr] 20 mg PO DAILY 06/30/16 [History Confirmed 01/09/18] Pantoprazole Sodium [Protonix] 40 mg PO BID 06/30/16 [History Confirmed 01/09/18] Rivaroxaban [Xarelto] 20 mg PO DAILY 06/30/16 [History Confirmed 01/09/18] hydrochlorothiazide 25 mg tablet 25 mg PO QDAY 01/07/18 [History Confirmed 01/09/18] metoprolol succinate ER 100 mg tablet,extended release 24 hr 100 mg PO QDAY 01/07/18 [History Confirmed 01/09/18] Bif idobacterium infantis 4 mg capsule 4 mg PO BID cap 01/09/18 [History Confirmed 01/09/18] amlodipine 5 mg tablet 5 mg PO QDAY tab 01/09/18 [History Confirmed 01/09/18] aspirin 81 mg tablet,delayed releas e 81 mg PO QDAY 02/05/18 [History] clopidogrel 75 mg tablet 75 mg PO QDAY #30 tab 02/10/18 [Rx Confirmed 02/10/18] PFSH Medical History Abnormal stre ss test (Acute) Chest pain (Acute) Hyperlipidemia (Chronic) Hypertension (Chronic) Nonrheumatic mitral valve regurgitation (Chronic) Nonrheumatic tricuspid (valve) insufficiency (Chronic) Paroxysmal atr ial fibrillation (Acute) shelter (current) use of anticoagulants (Chronic) GERD (gastroesophageal reflux disease) (Chronic) IBS (irritable bowel syndrome) (Chronic) Family History Father CH F (congestive heart failure) Other Diabetes Parkinsons Social History Smoking Status: Never smoker alcohol intake: never substance use type: does not use ROS Const Const: Negative for fatigue, weakness, body ache, fever(s) or chills ENT ENT: Negative for dizziness Cardio Chest Pain: No Palpitations: No Edema: None Muscle aches with walking: None Resp Respiratory: Negative for SOB with activi ty, SOB at rest, SOB orthopnea\SOB lying down or paroxysmal nocturnal dyspnea GI GI: Negative nausea, black,tarry stools, bright, red blood in stools or vomiting blood/hematemesis : Negative for he maturia or frequent nighttime urination/ nocturia Musc Musc: Negative for muscle aches/ myalgia Skin Skin: Negative non-healing lesions or rash Neuro Neuro: Negative for weakness, dizziness, lightheaded ness, near syncope, syncope or orthostatic symptoms Endo Endo: Negative for fatigue Psych Psych: Positive for anxiety Allergy Allergy/Immunology: Negative for rash Cardiology Exam Const Appearance: co operative, healthy appearing, comfortable, no acute distress, well developed and well groomed Nutritional Appearance: obese Orientation: alert, awake and oriented x3 Head Head: normal to inspection, nor mocephalic and atraumatic Ears: hearing grossly normal bilaterally Nose: external nose normal Face and Sinus: face symmetric Mouth: oral mucosae normal Teeth and gingiva: dentition normal Eyes Eyelids: eyelids normal Conjunctivae: conjunctivae normal Pupils: PERRL EOM: EOM intact bilaterally Neck Neck: normal visual inspection and full ROM Carotids: normal carotid upstroke Chest Chest inspection: norm al inspection of the chest and symmetric chest movement Auscultation: Bilateral: Clear to Auscultation Cardio Palpation: normal PMI Rate: regular rate Rhythm: regular rhythm and ectopic beats Heart soun ds: S1 normal and S2 normal GI GI: obese Neuro General: alert, awake, oriented x3, gait normal, moves all extremities and no focal motor deficits Skin Skin: no rashes or lesions noted Extremities Pulses : Normal: Right Radial Pulse, Left Radial Pulse Lower Extremity Edema: None: Bilateral Psych Psychological: normal affect Supplemental Info She underwent a transthoracic echocardiogram on 11/07/2016 at [facility]. The results are as noted below. Interpretation Summary Left ventricular systolic function is normal. The estimated ejection fraction is 60 %. The left atrium is mildly enla rged. The right atrium is mildly enlarged. Mild-Moderate (1-2+) mitral valve insufficiency. Mild to moderate (1-2+) tricuspid valve insufficiency. Mild focal aortic valve thickening. Trivial aortic valv e insufficiency. Trivial pulmonic valve insufficiency. Right ventricular systolic pressure estimated to be 27 mmHg. Interpretation Summary Left ventricular systolic function is normal. The estimated ej ection fraction is 55 %. The left atrium is moderately enlarged. There is no sponatenous contrast in the left atrium. No thrombus is detected in the left atrial appendage. The right atrium is severely e nlarged. Mild diffuse mitral valve thickening. Mild-Moderate (1-2+) mitral valve insufficiency. Moderate (2+) tricuspid valve insufficiency. Trivial aortic valve insufficiency. Bubble contrast study neg ative for right to left interatrial shunt. Normal appearing thoracic aorta. Stress test from January 2018 showed occasional PACs and PVCs during exercise and occasional PVCs during her recovery, peak exer cise EKG with somatic/motion artifact with no obvious EKG changes, and was considered to likely adequate exercise tolerance stents. Nuclear images revealed area concerning of stress-induced myocardial i schemia in portions of the mid to distal anterior segments, however, contribution from shifting soft tissue attenuation/artifact could not be excluded. 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 MINIMUM HEART RATE WAS 92 BPM AT 11:37:20 AM, NO ACTIViTY OR SYMPTOM RECORDED. MAXIMUM HEART RATE WAS 197 BPM AT 7:42:57 PM, NOACTMTY OR SYMPTOM RECORDED. AVERAGE HEART RATE NOTED TO BE 137 8PM. OCCASIONAL PREMATURE VENTRICULAR COMPLEXES, 2 VENTRICULAR COUPLETS. NO RUNS NOTED. THE PATIENT KEPT A24 HOUR DIARY AND NOTED LEFT SIDE PAIN WHICH DID NOT CORRELATE WITH THE SCAN. Assessment AND Jenniffer n 1. Abnormal stress test R94.39 Plan Patient's stress test from January 2018 could not rule out an area of mid to distal anterior ischemia. She will be undergoing a heart catheterization for further evalu ation of this. She was instructed to stop her Xarelto 4 days prior to heart catheterization. The day that she stops Xarelto she was asked to begin a loading dose, 300 mg, up Plavix and continue with Jenniffer vix 75 mg p.o. daily up to and including the morning of heart catheterization. She was also asked to start aspirin therapy when she begins Plavix. Depending on heart catheterization results, further rec ommendation will be made. 2. Essential hypertension I10 Plan Patient's blood pressure is well-controlled today in the office. We will continue to monitor this. We will not make any medication regimen c romeo. 3. Hyperlipidemia, unspecified hyperlipidemia type E78.5 Plan This is managed by primary care physician. She is not on any statin/cholesterol- lowering medication. Depending on results of her he art catheterization this may need to be addressed. 4. Nonrheumatic mitral valve regurgitation I34.0 Plan Echocardiogram from October 2016 showed an ejection fraction of 60% and mild to moderate mitral va lve insufficiency. Patient denies any shortness of breath or activity intolerance. She will continue with current medications and we will continue to monitor this through history, exam, and repeat echoc ardiogram as needed. 5. Nonrheumatic tricuspid (valve) insufficiency I36.1 Plan Patient's echocardiogram from October 2016 showed mild to moderate tricuspid valve insufficiency. She will continue current medications and we will continue to monitor this. 6. Paroxysmal atrial fibrillation I48.0 Plan She appears to be maintaining regular rhythm. She will continue with beta-seema and factor Xa inhibitor . We will continue to monitor this. 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 We will wait for results of the heart catheterization for further guidance regarding this. 8. Anxiety F41.9 Plan Patient expressed concerns regarding coping and/ or increase in anxiety. This may be due to abnormal stress test and need for heart catheterization. She was asked to discuss this further with primary care physician regarding medication adjustments and /or support regarding coping mechanisms. Plan Detail Other Medications New: Additional Comments Thank you for allowing us to participate in the patients plan of care, if you have any questions please do not hesitate to call. This note was generated using a voice recognition system and there may be incorrect words, spelling or punctuation that were not noted when reviewing the office note prior to s michell. 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 Z79.01 Anxiety F41.9 Coding Level of Care Code Off v is,est,level 3 Diagnoses Abnormal stress test R94.39 Essential hypertension I10 Hyperlipidemia, unspecified hyperlipidemia type E78.5 Nonrheumatic mitral valve regurgitation I34.0 Nonrheumatic tricuspi d (valve) insufficiency I36.1 Paroxysmal atrial fibrillation I48.0 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 Imaging Services [address] [place] [address] Chest PA and Lateral MR#: [id number] Acct: [id number] Name: NINA AYON Rep #: [id number] : 1955 F 62 From: Leslye Sue MD PCP: Nina Jiménez DO Status: REG CLI Study: Chest PA and Lateral Date of Exam: 02/10/18 Exam# [id number] Ordering Dr: Haile Mckee MD STUDY: X-RA Y CHEST REASON FOR EXAM: Female, 62 years old. Chest pain. TECHNIQUE: PA and lateral views of the chest. COMPARISON: June 28, 2016 FINDINGS: The lungs are cl ear and expanded. There is no demonstrated pleural abnormality. Normal size heart. Normal mediastinum and amarilys. Normal visualized pulmonary arteries. There is atherosclerotic calcification of the aorti c arch . There are diffuse degenerative changes of the visualized thoracic spine. Normal visualized ribs, clavicles, and shoulders. There is no demonstrated abnormality of the visualized soft tissue s tructures of the upper abdomen. RAD/Chest PA and Lateral IMPRESSION: No acute cardiopulmonary process. Electronically Signed: Leslye Sue MD at 17:31 EDT Tel , Service support , CC: Nina Jiménez DO; Haile Mckee MD Director Of Exhibits: Signed 04-Feb-2018 Stress Report Result: Comments: See Note; NOTES: [facility] Cardiovascular Services [address] [place] [address] MR#: [id number] Acct: [id number] Name: JIN AYONPUMA Kaur Rep #: [id number] : 62 From: Haile Mckee MD Primary Care: Nina Jiménez DO Status: REG CLI Ordering Dr: Sex: F C Stress Test Report Date: 02/04/2018 Procedure: Exercise tolerance test/imaging study Indic ations: Chest pain; paroxysmal atrial fibrillation Consent: Per the patient Procedure: The patient exercised on a Juan protocol for 6 minutes and 22 seconds completing Stage II and 22 seconds of Sta ge III achieving a peak heart rate of 136 bpm (85 % predicted maximal heart rate) with a peak blood pressure 190/84 mmHg and a peak MET capacity of 7 METs. The baseline ECG demonstrated sinus bradycard ia. The peak exercise ECG demonstrated somatic/motion artifact with no obvious ECG changes. There were occasional PACs and PVCs during exercise and occasional PVCs during recovery. The functional capa city was considered average. There was no complaint of chest discomfort during exercise or recovery. The examination was discontinued secondary to dyspnea and leg discomfort. Impression: 1. Technica lly adequate (percent predicted maximal heart rate greater than 85%) exercise tolerance test 2. Peak exercise ECG with somatic/motion artifact with no obvious ECG changes 3. There were occasional PACs a nd PVCs during exercise and occasional PVCs during recovery. 4. Nuclear images pending Myocardial perfusion imaging study: Technique: The patient was injected with 14.3 mCi of technetium 99m Cardioli te and subsequently rest SPECT Cardiolite nuclear imaging was obtained in the horizontal long, vertical long, and short axis views. The patient exercised on a Juan protocol for 6 minutes and 22 seconds completing Stage II and 22 seconds of Stage III achieving a peak heart rate of 136 bpm (85 % predicted maximal heart rate) with a peak blood pressure 190/84 mmHg and a peak MET capacity of 7 METs. The patient was injected with 44.7 mCi of technetium 99m Cardiolite and subsequently stress SPECT Cardiolite nuclear imaging was obtained in the horizontal long, vertical long, and short axis views. A gated Cardiolite study at peak stress was obtained. Interpretation: Rest and stress SPECT Cardiolite nuclear imaging status post realignment, normalization, and attenuation correction, demonstrates the asiya earance of subtle diminished tracer uptake in the mid anterior segments at rest and status post stress the appearance of more prominent diminished tracer uptake in the mid to distal anterior segments. T here are similar type changes on the resting and stress polar map images. There is end systolic thickening and brightening. The gated Cardiolite study demonstrates myocardial thickening and inward wall motion. The reported LVEF is 65 %. Impression: 1. Rest and stress SPECT Cardiolite nuclear imaging demonstrate myocardial perfusion changes concerning for an area of stress-induced myocardial ischemia and portions of the mid to distal anterior segments, however, contribution from shifting soft tissue attenuation/artifact cannot be excluded. 2. The gated Cardiolite study reports an LVEF of 65 %. Thi s note was generated with [employer] dictation software. It may contain incorrect words, spelling, and punctuation that were not noted in checking the note before signing. 02/04/18 1405 <Electron ically signed by Haile Mckee MD> Date Haile Mckee MD CC: Nina Diopon DO; Haile Mckee MD Date Dictated: 02/04/18 1354 Date Transcribed: 02/04/18 1354 Director Of Exhibits: PM Signed 09-Jan-2018 Cardiology Visit Report Result: Comments: See Note; NOTES: [facility] [address] [place] [address] OFFICE VISIT Date of Service: 01/09/18 MR#: [id number] Acct: [id number] Name: NINA AYON Rep #: [id number] : 1955 Provider: Haile Mckee MD Age/Sex: 62/F Location: [facility] Status: Signed HPI HPI Details: NINA AYON, is a 62 F who presents to the office today for for outpati ent cardiovascular follow-up. Since her visit in April 2017 she states she has been doing reasonably well with respect to her atrial dysrhythmia appear she occasionally feels a anxiety &amp ;#34;moment. She questions whether that could be her atrial fibrillation. However it does not last. She has had no near syncopal or syncopal events. She has had no concerning episodes of orthopnea or PN D or worsening peripheral pitting edema. She has had episodes of chest discomfort. She states this appears to be somewhat more prominent when she is exerting herself. She feels a heavy weight like sens ation on her chest. It does not necessarily radiate nor is it necessarily associated with nausea, emesis, diaphoresis, or worsening dyspnea. She had an ECG in the office today. She was in sinus rhythm with a PVC. She had no acute ECG changes. Intake Vital Signs01/09/18 Height 5 ft 7 in 01/09/18 Weight: 247 lb 01/09/18 Body Mass Index (BMI) 38.7 01/09/18 Blood Pressure 116/74 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: 6 M FU Allergies pneumococcal vaccine Allergy (Verified 01/09/18 10:13) Unknown Medications Citalopram Hydrobromide [Citalopram HBr] 20 mg PO DAILY 06/30/16 [History Confirmed 01/09/18] Pantoprazol e Sodium [Protonix] 40 mg PO BID 06/30/16 [History Confirmed 01/09/18] Rivaroxaban [Xarelto] 20 mg PO DAILY 06/30/16 [History Confirmed 01/09/18] hydrochlorothiazide 25 mg tablet 25 mg PO QDAY 01/07/18 [History Confirmed 01/09/18] metoprolol succinate ER 100 mg tablet,extended release 24 hr 100 mg PO QDAY 01/07/18 [History Confirmed 01/09/18] Bifidobacterium infantis 4 mg capsule 4 mg PO BID cap 01/09 [History Confirmed 01/09/18] amlodipine 5 mg tablet 5 mg PO QDAY tab 01/09/18 [History Confirmed 01/09/18] [facility] Medical History Hyperlipidemia (Ch ronic) Hypertension (Chronic) Nonrheumatic mitral valve regurgitation (Chronic) Nonrheumatic tricuspid (valve) insufficiency (Chronic) Paroxysmal atrial fibrillation (Acute) shelter (current) use of a nticoagulants (Chronic) GERD (gastroesophageal reflux disease) (Chronic) IBS (irritable bowel syndrome) (Chronic) Family History Father CHF (co ngestive heart failure) Social History Smoking Status: Never smoker alcohol intake: never substance use type: does not use ROS Const Const: Positive for fatigue (increased); negative for weakne ss, weight gain, weight loss, frequent falls or excessive sweating Eyes Eyes: Negative for change in vision, blurry vision or transient loss of vision ENT ENT: Positive for dizziness (with bending over) ; negative for balance problems Cardio Chest Pain: Yes Character: other (heaviness), tightness Location: left chest Exacerbation: activity (heavy lifting) Relieving: rest Palpitations: Yes (occasional) feels like its: pounding Edema: None Muscle aches with walking: Bilateral (leg cramping) Resp Respiratory: Positive for SOB with activity (with heavy exertion); negative for SOB at rest GI GI: Negative vomiting or vomiting blood/hematemesis : Negative for hematuria Musc Musc: Negative for balance problems, muscle aches/ myalgia, muscle weakness or joint pain Skin Skin: Negative non-healing lesion s or rash Neuro Neuro: Positive for dizziness (with bending over); negative for weakness, blurry vision, lightheadedness, frequent falls or orthostatic symptoms Barrett Hematologic/Lymphatic: Negative for easy bleeding Endo Endo: Positive for fatigue (increased); negative for excessive sweating Psych Psych: Negative for anxiety or depression Allergy Allergy/Immunology: Negative for hives, Negative for ra sh Cardiology Exam Const Appearance: cooperative, healthy appearing, comfortable, no acute distress, well developed and well groomed Nutritional Appearance: obese Orientation: alert, awake and oriente d x3 Head Head: normal to inspection, normocephalic and atraumatic Ears: hearing grossly normal bilaterally Nose: external nose normal Face and Sinus: face symmetric Mouth: oral mucosae normal Teeth and gingiva: dentition normal Eyes Eyelids: eyelids normal Conjunctivae: conjunctivae normal Pupils: PERRL EOM: EOM intact bilaterally Neck Neck: normal visual inspection and full ROM Carotids: normal rg tid upstroke Chest Chest inspection: normal inspection of the chest and symmetric chest movement Auscultation: Bilateral: Clear to Auscultation Cardio Palpation: normal PMI Rate: regular rate Rhythm: re gular rhythm and ectopic beats Heart sounds: S1 normal and S2 normal GI GI: obese, normal to inspection, bowel sounds present, soft and no hepatosplenomegaly Neuro General: alert, awake, oriented x3, ga it normal, moves all extremities and no focal motor deficits Skin Skin: no rashes or lesions noted Extremities Pulses: Normal: Right Radial Pulse, Left Radial Pulse Lower Extremity Edema: None: Bilatera l Psych Psychological: normal affect Supplemental Info She underwent a transthoracic echocardiogram on 11/07/2016 at [facility]. The results are as noted below. Interpretation Summary Left ventricular systolic function is normal. The estimated ejection fraction is 60 %. The left atrium is mildly enlarged. The right atrium is mildly enlarged. Mild-Moderate (1-2+) mitral valve insuffic iency. Mild to moderate (1-2+) tricuspid valve insufficiency. Mild focal aortic valve thickening. Trivial aortic valve insufficiency. Trivial pulmonic valve insufficiency. Right ventricular systolic pre ssure estimated to be 27 mmHg. Interpretation Summary Left ventricular systolic function is normal. The estimated ejection fraction is 55 %. The left atrium is moderately enlarged. There is no sponaten ous contrast in the left atrium. No thrombus is detected in the left atrial appendage. The right atrium is severely enlarged. Mild diffuse mitral valve thickening. Mild-Moderate (1-2+) mitral valve insu fficiency. Moderate (2+) tricuspid valve insufficiency. Trivial aortic valve insufficiency. Bubble contrast study negative for right to left interatrial shunt. Normal appearing thoracic aorta. IMPRESSI ON: 1. Rest and stress SPECT Cardiolite nuclear imaging demonstrates relative uniform tracer uptake and myocardial perfusion appearing within normal limits. 2. The gated Cardiolite study reports an LVEF of 60%. I) Moderate exercise tolerance achieving a MET work load of 10 METS. 2) Left cervical discomfort atypical for angina noted with stress. 3) EKG with stress demonstrating sinus tachycardia, rare PVCs. No St changes to suggesty ischemia. 4) Echocardiogram with stress demonstrates augmentation in all segment with no regional wall motion abnormalities to suggest inducible ischemia. THIS IS A24 H OUR HOLTER MONITOR IN ATRIAL FIBRILLATION. MINIMUM HEART RATE WAS 92 BPM AT 11:37:20 AM, NO ACTIViTY OR SYMPTOM RECORDED. MAXIMUM HEART RATE WAS 197 BPM AT 7:42:57 PM, NOACTMTY OR SYMPTOM RECORDED. AVER AGE HEART RATE NOTED TO BE 137 8PM. OCCASIONAL PREMATURE VENTRICULAR COMPLEXES, 2 VENTRICULAR COUPLETS. NO RUNS NOTED. THE PATIENT KEPT A24 HOUR DIARY AND NOTED LEFT SIDE PAIN WHICH DID NOT CORRELATE WI TH THE SCAN. Assessment AND Plan 1. Chest pain, unspecified type R07.9 Plan She does have chest discomfort. It is exertional. It is concerning for the possible CAD and myocardial ischemia. She was asked to have further evaluation with an exercise tolerance test/imaging study. She was agreeable to this approach. Orders Orders: 2. Paroxysmal atrial fibrillation I48.0 Plan She does have a history o f paroxysmal atrial fibrillation. She appears to be remaining in sinus rhythm. She will continue her current medical management and follow-up. Orders Orders: 3. Nonrheumatic mitral valve insufficiency I34.0 Plan She does have a history of both MR and TR. She has been evaluated in the past noninvasively. She will continue medical management and follow-up including echocardiographic studies as deemed a ppropriate. Orders Orders: 4. Non-rheumatic tricuspid valve insufficiency I36.1 Plan Again she has an element of TR. She will continue evaluation care as noted above. Orders Orders: 5. Hyperlipidemia, unspecified hyperlipidemia type E78.5 Plan A copy of her most recent lipid labs would be appreciated for continuity of care. Orders Orders: 6. Essential hypertension I10 Plan Her blood pressure appear s to be recently well controlled. She will continue medical management and follow- up. Orders Orders: 7. termite treater helper current use of anticoagulant Z79.01 Plan Again she will need to continue to be followed for any concerns with her medications as well as having follow-up diagnostic studies as needed. Orders Orders: Plan Detail Additional Comments The above was discussed with her and she was agreeable to this approach. In the interim she was asked to reassess her diet and her activity levels in an attempt to try and bring her weight down and under better control. Thank you for allowing me to particip ate in the care of your patient. Please don't hesitate to call if any issues arise. This note was generated using a voice recognition system and there may be incorrect words, spelling or punctuation th at were not noted when reviewing the office note prior to saving. 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 Z79.01 Coding Level of Care Code Off vis,est,level 4 Diagnoses Chest pain, unspecified type R07.9 Chest pain type: unspecified Paroxysmal atrial fibrillation I48.0 Nonrheumatic mitral valve insufficiency I34.0 Non-rheumatic tricuspid valve insufficiency I36.1 Hyper lipidemia, unspecified hyperlipidemia type E78.5 Hyperlipidemia type: unspecified Essential hypertension I10 Hypertension type: essential hypertension termite treater helper current use of anticoagulant Z79.01 1103 <Electronically signed by Haile Mckee MD> Date Haile Mckee MD Cosigner Signature: Date (if applicable) CC: Nina Jiménez DO 09-Jan-2018 12 Lead EKG performed by [facility] Result: Comments: See Note; NOTES: [facility] [address] [place] [address] 12 Lead EKG performed by [facility] 01/09/18 1025 MR#: [id number] Acct: [id number] Name: NINA AYON Rep #: [id number] : 1955 62 From: Haile Mckee MD Attending Dr: Haile Mckee MD Status: DEP [facility] Ordering Dr: Haile Mckee MD Date: 01/09/18 Location: [facility] Sex: F C Admitted : [facility]/12 Lead EKG performed by [facility] ECG Report Interpretation Sinus Rhythm - occasional ectopic ventricular beat Electronically signed on 01/09/2018 at 12:2 4 by Haile Mckee 01/09/18 1227 Date Haile Mckee MD CC: Nina Jiménez DO Date Dictated: 01/09/18 1025 Date Transcribed: 01/09/18 102 Director Of Exhibits: PM Signed 09-Aug-2017 Abdomen/Pelvis WITH Contrast Result: Comments: See Note; NOTES: [facility] Imaging Services [address] [place] [address] Abdomen/Pelvis WITH Contrast MR#: [id number] Acct: [id number] Name: NINA AYON Rep # : [id number] : 1955 F 62 From: Ganga Argueta PCP: Nina Jiménez DO Status: REG CLI Study: Abdomen/Pelvis WITH Contrast Date of Exam: 08/09/17 Exam# [id number] Ordering Dr: Nina Jiménez DO STUDY: CT ABDOMEN AND PELVIS WITH CONTRAST REASON FOR EXAM: Female, 62 years old. Right lower quadrant pain, back pain. RADIATION DOSAGE (If Supplied By Facility): CTDIvol = ( 25.14 ) mGy, DLP = ( 1217.74 ) mGycm TECHNIQUE: Transaxial images were obtained from the dome of the diaphragm to the symphysis pubis with oral contrast. 100mL ml of Isovue 300 contrast was administered. Sagittal and coron al images were reconstructed. Individualized dose optimization techniques were used for this CT. COMPARISON: None. FINDINGS: The visualized lung bases are unremark able. The visualized portions of the heart are within normal limits. Moderate size hiatal hernia. Normal liver. Normal gallbladder and extrahepatic biliary system. Normal spleen. Normal pancreas. Norm al bilateral adrenal glands. Normal right kidney. Normal left kidney. Normal visualized stomach. Normal small intestine. Terminal ileum is normal. Mild sigmoid colon diverticulosis. The appendix is we ll visualized axial images 83 through 90 series 2 and coronal images 55 through 58 series 601 and appears normal. Normal abdominal aorta. Normal inferior vena cava. Normal retroperitoneum. No intra-abd ominal free air. Normal urinary bladder. Uterus grossly normal. No adnexal masses seen. Normal abdominal wall. Mild degenerative changes of the lumbar spine. ORDE R #: [id number] CT/Abdomen/Pelvis WITH Contrast IMPRESSION: No acute findings in the abdomen or pelvis. Normal appendix. No hydronephrosis or urinary tract stones. No evidence of bowel obstruction. M ild sigmoid colon diverticulosis. Moderate size hiatal hernia. Electronically Signed: Ganga Argueta MD at 8:11 EST , Service support , CC: Nina Tino Director Of Exhibits: Signed 07-Nov-2016 Echocardiogram Complete Result: Comments: See Note; NOTES: [facility] Cardiovascular Services [address] [place] [address] Echo Complete 11/07/16 1027 MR#: [id number] Acct: [id number] Name: NINA AYON Rep #: [id number] : 1955 61 From: Haile Mckee MD Attending Dr: Sanam Coronel NP Status: REG CLI Ordering Dr: Sanam Coronel NP-Rishabh Date: 11/07/16 Location: [facility] Sex: F C Admitted: Casco son For Study: Afib Procedure This was a 2D Doppler, Color Flow transthoracic echocardiogram. Exam performed in department. Left Ventricle Normal LV size. Left ventricular systolic function is normal. The estimated ejection fraction is 60 %. No regional wall motion abnormalities noted. Right Ventricle Normal RV size. Normal systolic function. Atria The left atrium is mildly enlarged. The right atr ium is mildly enlarged. No doppler evidence for ASD. Mitral Valve There is no mitral annular calcification. Normal mitral valve. Mild-Moderate (1-2+) mitral valve insufficiency. Tricuspid Valve Normal tricuspid valve. Mild to moderate (1-2+) tricuspid valve insufficiency. Right ventricular systolic pressure estimated to be 27 mmHg. Aortic Valve Trisinus/trileaflet aortic valve. Mild focal aortic va lve thickening. Trivial aortic valve insufficiency. Pulmonic Valve The pulmonic valve is not well visualized. Trivial pulmonic valve insufficiency. Great Vessels Normal sized aortic root. Pericardium/ Pleural No pericardial effusion. MMode/2D Measurements & Calculations LVIDd: 5.2 cm IVSd: 1.1 cm Ao root diam: 3.0 cm LVIDs: 3.4 cm LVPWd: 0.89 cm LA dimension: 4.3 cm RVDd: 3.6 cm FS: 35.2 % _ LAV(MOD-bp): 72.9 ml LA A4 area: 22.4 cm2 RA A4 area: 20.5 cm2 LAV(MOD-bp) Indexed: 33.8 ml/m2 LAV(MOD-sp2): 65.2 ml LAV( MOD-sp4): 69.0 ml Doppler Measurements & Calculations MV E max ashish: 89.0 cm/sec Lat Peak E' Ashish: 12.3 cm/sec Med Peak E' Ashish: 6.4 cm/sec MV A max ashish: 79.4 cm/sec E/E' lat: 7.3 E/E' med: 13.9 M V E/A: 1.1 Ao V2 max: 157.0 cm/sec LV V1 max: 120.6 cm/sec PA V2 max: 99.2 cm/sec Ao max P.9 mmHg LV V1 max P.8 mmHg Ao V2 mean: 110.2 cm/sec Ao mean P.3 mmHg Ao V2 VTI: 34.4 cm PI end-d ashish: 57.8 cm/sec TR max ashish: 242.3 cm/sec TR max P.5 mmHg Interpretation Summary Left ventricular systolic function is normal. The estimated ejection fraction is 60 %. The left atrium is mildly enlarged. The right atrium is mildly enlarge d. Mild-Moderate (1-2+) mitral valve insufficiency. Mild to moderate (1-2+) tricuspid valve insufficiency. Mild focal aortic valve thickening. Trivial aortic valve insufficiency. Trivial pulmonic valve insufficiency. Right ventricular systolic pressure estimated to be 27 mmHg. Ordering Physician: Sanam Castro Referring Physician: Nina Jiménez Performed By: Aide Snider, RONAL, RVT 11/07/16 173 Date Haile Mckee MD CC: Sanam Coronel ANIMAL HOSPITAL CLERK; Nina Jiménez DO Date Dictated: 11/07/16 1027 Date Transcribed: 11/07/161733 Director Of Exhibits: Signed 02-Nov-2016 SCREENING MAMM (CAD), BILAT Result: Comments: See Note; NOTES: [facility] Imaging Services [address] [place] [id number] Verdana 4d SCREENING MAMM (CAD), BILAT MR#: [id number] Acct: [id number] Name: GABODARÍO HAZEL Kaur Rep #: [id number] : 1955 F 61 From: Jaya Mac MD PCP: Nina Jiménez DO Status: [facility] CLI Study: SCREENING MAMM (CAD), BILAT Date of Exam: 11/02/16 Exam# [id number] Ordering Dr: Nina Kingsley DO MAMMOGRAPHY - BILATERAL SCREENING REASON FOR EXAM: Female, 61 years old. Routine annual screening examination. PERTINENT HISTORY: Grandmother with breast cancer. TECHNIQUE: Digital bilateral breast devi (3D mammographic acquisition) in the CC and MLO projections. 2-D mediolateral oblique (MLO) and craniocaudad (CC) views of both breasts were obtained. CAD: Full Field Digital Mamm ography with Computer Added Detection was performed. COMPARISON: Comparison is made with prior examination dated July 21, 2008 and July 24, 2008. FINDINGS: Br east Composition: The breasts are extremely dense, which lowers the sensitivity of mammography. There are no dominant masses or suspicious calcifications. No other significant abnormalities are identi fied. There has been no significant change since the prior study. HPBI/SCREENING MAMM (CAD), BILAT IMPRESSION: Stable bilateral screening mammogr am. Yearly follow-up mammogram recommended. (A) ASSESSMENT CATEGORY: BIRADS Category 1: Negative. A letter regarding these results will be sent to the patient by [facility] facility within 30 days. Approximately 10% of breast cancers are not detected by mammography. A normal mammogram should not delay biopsy of a clinically suspicious abnormality. [id number] Signed: Jaya Mac MD at 8:27 EDT Tel [phone], Service support [phone], CC: Nina Jiménez DO Director Of Exhibits: Signed 04-Jul-2016 Operative Report Result: Comments: See Note; NOTES: [facility] Medical Records Department [address] [place] [address] Operative Report MR#: [id number] Acct: [id number] Name: NINA AYON Rep #: [id number] : 1955 61 From: Juan Covington MD PCP: Nina Jiménez DO Status: [facility] DATE OF SERVICE: 07/03/2016 DATE OF SERVICE: July 03, 2016 BRIEF HISTORY OF PRESENT ILLNESS: The patien angelo is a 61-year-old female, currently under the care of Dr. Mckee, who presented for an elective outpatient KATHY and cardioversion secondary to atrial fibrillation. The patient reports she h as been of her usual health and her last meal was last evening. The patient does report she snores, but has never formally had a sleep study. Otherwise, the patient has no respiratory, gastric, or endoc rine abnormalities of concern. The patient has only had local anesthetic previously, but does not report difficulty. The patient did have a KATHY just prior to this cardioversion for which she received 2 mg of Versed and 100 mcg of fentanyl. No clot was noted and an ejection fraction was 55%. PHYSICAL EXAMINATION: VITAL SIGNS: Reviewed and acceptable. GENERAL: The patient is an obese female, in no apparent distress, speaking in full sentences. HEENT: Normocephalic and atraumatic. Mucous membranes are moist and pink. There is no scleral icterus or injection noted. CHEST: S1, S2, irregularly irregular. No murmurs, rubs, or gallops are appreciated. LUNGS: Clear to auscultation bilaterally with no wheezes, rales, or rhonchi. ABDOMEN: Soft, nontender, and nondistended. Positive bowel sounds. E XTREMITIES: There is no clubbing, cyanosis, or edema. ASA class 2. DESCRIPTION OF PROCEDURE: After confirmation of informed consent, the anesthesia plan was reviewed with the patient. Risks, benefits, and alternatives to propofol were explained. The patient agreed to proceed with propofol sedation. At 10:30 a.m., the patient was given 40 mg of propofol. The patient received an additional 20 mg of pr opofol to achieve appropriate sedation. At that time, the patient was given a 200 joule synchronized cardioversion by Dr. Mckee, which was successful in achieving normal sinus rhythm. This was confi rmed by EKG. The patient was monitored until 10:38 a.m., at which time the patient was back to her baseline functioning. The patient tolerated the procedure well. COMPLICATIONS: None. ESTIMATED BLOOD LOSS: 0. RECOMMENDATIONS: Okay to recover in the usual fashion. MD Rishabh ROSAS C: Haile Mckee MD Primary Care Physician T: FERNANDO JOB: [id number] 07/04/16 0615 <Electronically signed by Juan Covington MD> Date Juan Covington MD Cosigner Signature (If Indicated): Date CC: Juan Covington MD; Nina Jiménez DO; Haile Mckee MD Date Dictated: 07/03/161103 Date Transcribed: 07/03/161103 Director Of Exhibits: Signed 03-Jul-2016 Operative Report Result: Comments: See Note; NOTES: [facility] Medical Records Department [address] [place] [address] Operative Report 07/03/161641 MR#: [id number] Acct: [id number] Name: DARÍO AYON Rep #: [id number] : 1955 61 From: Haile Mckee MD PCP: Nina Jiménez DO Status: [facility] Location: [facility] Problem List (1) Atrial fibrillation Status: Acute Qualifiers: Atrial fibrill ation type: A Operative Report (Blank) Date of Procedure: 07/03/16 Procedure: Synchronized biphasic DC cardioversion Indications: Atrial fibrillation Consent: Per patient Premedications: Per Dr. Jolly Covington pulmonology and critical care medicine with propofol 60 mg IV push total Procedure: Synchronized biphasic DC cardioversion: 200 J 1: Result: Sinus rhythm Complications: No apparent complica tions This note was generated with cottonTracks software. It may contain incorrect words, spelling, and punctuation that were not noted in checking the note before signing. 07/03/16 1644 &#6 0;Electronically signed by Haile Mckee MD> Date Haile Mckee MD CC: Nina Jiménez DO; Haile Mckee MD Signed 03-Jul-2016 Echo Transesophageal (KATHY) Result: Comments: See Note; NOTES: [facility] Cardiovascular Services [address] [place] [address] Echo Transesophageal (KATHY) 07/03/16 0947 MR#: [id number] Acct: [id number] Name: NINA LIMA Rep #: [id number] : 1955 61 From: Haile Mckee MD Attending Dr: Haile Mckee MD Status: DEP [facility] Ordering Dr: Haile Mckee MD Date: 07/03/16 Location: [facility] Sex: F C Admitted: Reason For Study: AFIB Medication KATHY probe passed with minimal difficulty. Cetacaine Topical [place] given X3 orally. Versed 2 mg given slow IVP. Fentanyl 100 mcg given slow IVP. Left Ventricle L eft ventricular systolic function is normal. The estimated ejection fraction is 55 %. No regional wall motion abnormalities noted. Right Ventricle Normal systolic function. Atria No doppler evidence for ASD. Bubble contrast study negative for right to left interatrial shunt. The left atrium is moderately enlarged. There is no sponatenous contrast in the left atrium. No thrombus is detected in the l eft atrial appendage. The right atrium is severely enlarged. There is no sponatenous contrast in the right atrium. No RA / appendage thrombus identified. Mitral Valve There is no mitral annular calcifi cation. Mild diffuse mitral valve thickening. Mild-Moderate (1- 2+) mitral valve insufficiency. Tricuspid Valve Normal tricuspid valve. Moderate (2+) tricuspid valve insufficiency. Aortic Valve Trisinu s/trileaflet aortic valve. Normal aortic valve. Trivial aortic valve insufficiency. Pulmonic Valve The pulmonic valve is not well visualized. Vessels Normal appearing thoracic aorta. Pericardium No p ericardial effusion. Interpretation Summary Left ventricular systolic function is normal. The estimated ejection fraction is 55 %. The left atrium is moderately enlarged. There is no sponatenous contra st in the left atrium. No thrombus is detected in the left atrial appendage. The right atrium is severely enlarged. Mild diffuse mitral valve thickening. Mild- Moderate (1-2+) mitral valve insufficiency. Moderate (2+) tricuspid valve insufficiency. Trivial aortic valve insufficiency. Bubble contrast study negative for right to left interatrial shunt. Normal appearing thoracic aorta. Ordering Physician: Haile Mckee Referring Physician: Nina Jiménez Performed By: Amy Sethi, RONAL, RVT E lectronically signed by: Haile Mckee MD on 07/03/2016 02:36 PM 07/03/16 1436 Date Haile Mckee MD CC: Nina Jiménez DO; Haile Mckee MD Da te Dictated: 07/03/16 0947 Date Transcribed: 07/03/16 1436 Director Of Exhibits: Signed 28-Jun-2016 Chest PA and Lateral Result: Comments: See Note; NOTES: [facility] Imaging Services [address] [place] [address] Verdana 4d Chest PA and Lateral MR#: [id number] Acct: [id number] Name: NINA AYON ep #: [id number] : 1955 F 61 From: Johnathon Meza PCP: Nina Jiménez DO Status: PRE [facility] Study: Chest PA and Lateral Date of Exam: 06/28/16 Exam# [id number] Ordering Dr: Haile Mckee MD STUDY: X-RAY CHEST REASON FOR EXAM: Female, 61 years old. Atrial fibrillation TECHNIQUE: PA and lateral COMPARISON: None. FINDINGS: The lungs are clear and exp anded. There is no demonstrated pleural abnormality. Normal size heart. Normal mediastinum and amarilys. Normal visualized pulmonary arteries. Normal visualized aortic arch and descending thoracic aorta. Normal visualized thoracic spine. Normal visualized ribs, clavicles, and shoulders. There is no demonstrated abnormality of the visualized soft tissue structures of the upper abdomen. RAD/Chest PA and Lateral IMPRESSION: Normal x-ray examination of the chest. Electronically Signed: Johnathon Meza MD at 6:38 EST Tel , Service support [phone], CC: Nina Jiménez DO; Haile Mckee MD Director Of Exhibits: Signed 19-Jun-2016 Nuclear Stress Test - Chemical Result: Comments: See Note; NOTES: [facility] Imaging Services [address] [place] [address] Verdana 4d Nuclear Stress Test - Chemical MR#: [id number] Acct: [id number] Name: Ashlee AYONEN B Rep #: [id number] : 1955 61 From: Haile Mckee MD Primary Care: Nina Jiménez DO Status: REG CLI Ordering Dr: Haile Mckee MD Sex: F C DATE OF SERVICE: 06/19/2016 EXERCISE TOLERANCE TEST: The patient underwent pharmacologic (regadenoson) evaluation with a peak heart rate of 126 beats per minute (78% predicted maximum heart rate) and a peak blood pressure of 120/84 mmHg. The baseline ECG demonstrated atrial fibrillation. The peak pharmacologic ECG demonstrated no obvious ECG changes. There was a rare PVC during recovery. There was no report of chest discomfort during pharmacologic infusion or recovery. The examination was discontinued secondary to completion of protocol. IMPRESSION: 1. Pharmacologic (regadenoson) evaluation. 2. Peak pharmacologic ECG with no obvi ous ECG changes. 3. Rare PVC during recovery. 4. Nuclear images pending. MYOCARDIAL PERFUSION IMAGING STUDY: TECHNIQUE: The patient was injected with 14.8 mCi of Tc99m Cardiolite and subsequently rest SPECT Cardiolite nuclear imaging was obtained in the horizontal long, vertical long, and short axes views. The patient underwent pharmacologic (regadenoson) evaluation with a peak heart rate of 126 kam ts per minute (78% predicted maximum heart rate) and a peak blood pressure of 120/84 mmHg. The patient was injected with 44.9 mCi of Tc99m Cardiolite and subsequently stress SPECT Cardiolite nuclear brendan ging was obtained in the horizontal long, vertical long, and short axes views. A gated Cardiolite study at peak stress was obtained. INTERPRETATION: Rest and stress SPECT Cardiolite nuclear imaging, st atus post realignment, normalization, preattenuation correction, and post-attenuation correction demonstrates the appearance of relative uniform tracer uptake and myocardial perfusion appearing within n ormal limits. There is end systolic thickening and brightening. The gated Cardiolite study demonstrates myocardial thickening and inward wall motion. The reported LVEF is 60%. IMPRESSION: 1. Rest and s tress SPECT Cardiolite nuclear imaging demonstrates relative uniform tracer uptake and myocardial perfusion appearing within normal limits. 2. The gated Cardiolite study reports an LVEF of 60%. Haile Mckee MD T: NTS JOB: [id number] 06/19/161936 <Electronically signed by Haile Mckee MD> Date Haile Mckee MD CC: Nina Diop on DO; Haile Mckee MD Date Dictated: 06/19/161406 Date Transcribed: 06/19/161406 Director Of Exhibits: Signed 08-Jun-2016 Echocardiogram Complete Result: Comments: See Note; NOTES: [facility] Cardiovascular Services [address] [place] [address] Echo Complete 06/08/16 1319 MR#: [id number] Acct: [id number] Name: NINA AYON Rep #: [id number] : 1955 61 From: Haile Mckee MD Attending Dr: Nina Jiménez DO Status: REG CLI Ordering Dr: Nina Jiménez DO Date: 06/08/16 Location: [facility] Sex: F C Admitted: Reas on For Study: Rapid Afib Procedure This was a 2D Doppler, Color Flow transthoracic echocardiogram. The exam was of fair technical quality due to body habitus. The study was technically difficult. Exam performed in department. Left Ventricle Normal LV size. Left ventricular systolic function is normal. The estimated ejection fraction is 55 %. No regional wall motion abnormalities noted. Right Ventri rafa Normal RV size. Normal systolic function. Atria The left atrium is moderately enlarged. The right atrium is moderately enlarged. No doppler evidence for ASD. Mitral Valve There is no mitral annula r calcification. Normal mitral valve. Moderate (2+) mitral valve insufficiency. Tricuspid Valve Normal tricuspid valve. Moderate (2+) tricuspid valve insufficiency. Right ventricular systolic pressure estimated to be 28 mmHg. Aortic Valve Trisinus/trileaflet aortic valve. Normal aortic valve. Pulmonic Valve The pulmonic valve is not well visualized. Great Vessels Normal sized aortic root. Pericard ium/Pleural No pericardial effusion. MMode/2D Measurements & Calculations LVIDd: 4.4 cm IVSd: 1.1 cm Ao root diam: 2.9 cm LVIDs: 3.0 cm LVPWd: 0.83 cm LA dimension: 5.1 cm RVDd: 3.9 cm FS: 32.4 % LAV(MOD-bp): 102.2 ml LA A4 area: 27.1 cm2 RA A4 area: 23.9 cm2 LAV(MOD-bp) Indexed: 48.5 ml/m2 LAV(MOD-sp2): 97.1 ml LAV(MOD-sp4): 93.1 ml Doppler Measurements & Calculations MV E max ashish: 92.7 cm/sec Lat Peak E' Ashish: 11.0 cm/sec Med Peak E' Ashish: 10.5 cm/sec E/E' lat: 8.4 E/E' med: 8.9 Ao V2 max: 126.1 cm/sec LV V1 max: 100.4 cm/sec PA V2 max: 87.4 cm/sec Ao max P.4 mmHg LV V1 max P.0 mmHg Ao V2 mean: 92.3 cm/sec Ao m beth P.7 mmHg Ao V2 VTI: 21.7 cm TR max ashish: 225.0 cm/sec TR max P.4 mmHg Interpretation Summary The study was t echnically difficult. Left ventricular systolic function is normal. The estimated ejection fraction is 55 %. The left atrium is moderately enlarged. The right atrium is moderately enlarged. Moderate (2 +) mitral valve insufficiency. Moderate (2+) tricuspid valve insufficiency. Right ventricular systolic pressure estimated to be 28 mmHg. Ordering Physician: Nina Jiménez Referring Physician: Nina Jiménez Performed By: Aide Snider, RONAL, RVT Electronically signed by: Haile Mckee MD on 05:31 PM 06/08/16 1731 Date Haile Mckee MD CC: Nina Jiménez DO Date Dictated: 06/08/16 1319 Date Transcribed: 06/08/16 1732 Director Of Exhibits: Signed 06-Jul-2014 Hepatobilliary Imaging Result: Comments: See Note; NOTES: [facility] Imaging Services [address] [place] [address] Nuclear Medicine Report MR#: [id number] Acct: [id number] Name: NINA AYON Rep #: [id number] : 1955 F 59 From: Steven Cunha DO PCP: Nina Jiménez DO Status: REG CLI Study: Hepatobilliary Imaging Date of Exam: 07/06/14 Exam# [id number] Ordering Dr: Kacey Patton CL INICAL: 59-year-old female with reported history of right upper quadrant abdominal pain. RADIONUCLIDE HEPATOBILIARY SCINTIGRAPHY COMPARISON: Abdominal ultrasound report 06/23/14 FINDINGS: Foll owing the intravenous administration of 4.8 mCi of Tc Mebrofenin, hepatobiliary images reveal: 1. Relatively prompt and homogeneous radiopharmaceutical concentration is noted by a normal sized liver . No parenchymal defects are identified. 2. Gallbladder activity is identified at 45 minutes post radiopharmaceutical administration. 3. Small intestinal tract is observed at 30 minutes following tra cer injection. 4. Washout of the radiopharmaceutical by the hepatic parenchyma appears qualitatively normal. Cholecystokinin (0.02 ug/kg) was administered intravenously over a 3-minute period. The post CCK gallbladder ejection fraction calculated at 20 minutes following Cholecystokinin administration was noted to be 96.8 % (normal greater than 35%). During 30 minutes of post CCK imaging, there is no scintigraphic evidence of reflux of the radiotracer into the common hepatic duct or refilling of the gallbladder. 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 IMPRESS ION: 1. A gallbladder ejection fraction calculated to be greater than 35% following the administration of Cholecystokinin makes the probability of functional hepatobiliary disease (gallbladder and/or sphincter of Oddi dyskinesia) and/or organic hepatobiliary disease (chronic acalculous cholecystitis and/or cystic duct syndrome) to be low. (Jefferson Castro, Journal of Nuclear Medicine 32:1695, 1990). 2. There is scintigraphic evidence of post CCK duodenal-gastric reflux. (Delia et al, Nucl Med Roxana Lucia Press pg. 35, 1981). Electronically Signed: Steven Cunha at 8:3 5 EST Tel [phone], Service support [phone], CC: Kacey Patton; Nina Diopon Director Of Exhibits: Signed 02-Jul-2014 Small Bowel Series Only Result: Comments: See Note; NOTES: [facility] Imaging Services [address] [place] [address] Radiology Report MR#: [id number] Acct: [id number] Name: NINA AYON Rep #: [id number] : 1955 F 59 From: Jaya Mac MD PCP: Nina Jiménez DO Status: REG CLI Study: Small Bowel Series Only Date of Exam: 07/02/14 Exam# [id number] Ordering Dr: Kacey Patton CEDURE: SMALL BOWEL SERIES DATE OF EXAMINATION: July 02, 2014.. INDICATION: Female, 59 years old. Chronic indigestion. PHYSICIAN: Jaya Mac M.D. TECHNIQUE: Radiographic and fluoro scopic images were taken of the small intestine following the ingestion of barium. COMPARISON: None. FINDINGS: A preliminary supine KUB was obtained. There i s an unremarkable bowel gas pattern. Fecal material is present throughout the colon. Phleboliths are present within the pelvis. The lung bases are unremarkable. There is evidence of degenerative cooper ges involving the lower dorsal and lumbar spine as well as the symphysis pubis. The patient orally ingested approximately 12 ounces of thin barium Normal visualized fundus, body, and antrum of the s tomach. Normal duodenal bulb, C-loop, and proximal jejunum. Normal visualized mucosal folds of the jejunum and ileum. There are no demonstrated dilatations, strictures, or masses of the small intes dustin. There is no mass displacement of the loops of small intestine. There is a normal motor pattern with barium reaching the colon within approximately 30 minutes. Spot films under fluoroscopic o bservation demonstrated a normal terminal ileum and ileocecal valve. IMPRESSION: Normal small bowel series. Electronically Signed: Jaya Mac MD 201 11/27/13 at 11:02 EST Tel [phone], Service support [phone], RAD/Small Bowel Series Only IMPRESSION: Normal small bowel series. Electronically Signed: Jaya Mac MD at 11:02 EST Tel [phone], Service support [phone], CC: Kacey Patton; Nina Jiménez DO Director Of Exhibits: Signed 23-Jun-2014 Gallbladder Result: Comments: See Note; NOTES: [facility] Imaging Services [address] [place] [address] Ultrasound Report MR#: [id number] Acct: [id number] Name: NINA AYON Rep #: [id number] : 1955 F 59 From: Jaya Mac MD PCP: Nina Jiménez DO Status: REG CLI Study: Gallbladder Date of Exam: 06/23/14 Exam# [id number] Ordering Dr: Kacey Patton STUDY: ABDOMIN AL ULTRASOUND - RIGHT UPPER QUADRANT REASON FOR VISIT: Female, 59 years old. Right upper quadrant pain. TECHNIQUE: Ultrasound evaluation of the right upper quadrant was performed with real-time and static elise-scale imaging. TECHNICAL QUALITY: Adequate. COMPARISON: None. FINDINGS: Liver: The liver measures 15.0 cm. There is increased echogenicity cons istent with fatty infiltration. The bile ducts are within normal limits. There is hepatic color flow. The direction of portal flow is hepatopetal. There is no demonstrated mass lesion. Gallbladder: Normal distended gallbladder. The gallbladder wall measures 2.6 mm. There is a negative sonographic Thrasher's sign. There is no pericholecystic fluid. There are no gallstones. There is a 3 mm x 3 mm x 4 mm polyp. Common Bile Duct (C.B.D.): The common bile duct measures 1.2 mm. Pancreas: Normal size of the head, body and tail of the pancreas. There is normal echogenicity of the pancreas. There i s no demonstrated pancreatic mass or cyst. Right Kidney: Normal size of the right kidney. The right kidney measures 10.1 cm x 5.6 cm x 4.6 cm. Normal renal cortex. The right cortex measures 1.1 cm. There is a 1 cm x 0.8 cm x 0.7 cm cyst in the right kidney. There is no right hydronephrosis. IMPRESSION: Small gallbladder polyp. Small right renal cyst. El ectronically Signed: Jaya Mac MD at 11:48 EST Tel [phone], Service support [phone], CC: Kacey Patton; Nina Jiménez DO Director Of Exhibits: Signed Immunization Name Dates Details Influenza (3 years and up) on: 29-Jul-2008 Pneumococcal (2 years and up) on: 14-Nov-2015 Comments: Site: Deltoid (Left) Lot #: [id number] Pneumococcal (2 years and up) on: 29-Jul-2008 Social History Name Dates Details Tobacco use: Never smoker. Status: Active Smoking Status Name Dates Details Never smoker Vital Signs Date Test Result Details [id number] Temperature 97.2 f Comments: Method: Temporal Pulse 61 /min Comments: Pattern: Regular Respiration Rate 18 /min Comments: Pattern: Unlabored O2 SAT 97 % Comments: Room air BP Systolic 162 mm[Hg] Comments: Patient Position: Sitting; Cuff Location: Left Arm; Cuff Size: Standard BP Diastolic 80 mm[Hg] Comments: Patient Position: Sitting; Cuff Location: Left Arm; Cuff Size: Standard Weight 247 lb Height 67 in Body Mass Index Calculated 38.69 kg/m2 Body Surface Area Calculated 2.21 m2 [id number] Temperature 97.9 f Comments: Method: Temporal Pulse 78 /min Comments: Pattern: Regular Respiration Rate 20 /min Comments: Pattern: Unlabored O2 SAT 98 % Comments: Room air BP Systolic 100 mm[Hg] Comments: Patient Position: Sitting; Cuff Location: Left Arm; Cuff Size: Large BP Diastolic 70 mm[Hg] Comments: Patient Position: Sitting; Cuff Location: Left Arm; Cuff Size: Large Weight 240 lb Height 67 in Body Mass Index Calculated 37.59 kg/m2 Body Surface Area Calculated 2.19 m2 :32 Temperature 97.6 f Comments: Method: Temporal Pulse 76 /min Comments: Pattern: Regular Respiration Rate 18 /min Comments: Pattern: Unlabored O2 SAT 94 % Comments: Room air BP Systolic 138 mm[Hg] Comments: Patient Position: Sitting; Cuff Location: Left Arm; Cuff Size: Large BP Diastolic 78 mm[Hg] Comments: Patient Position: Sitting; Cuff Location: Left Arm; Cuff Size: Large Weight 250 lb Height 67 in Body Mass Index Calculated 39.16 kg/m2 Body Surface Area Calculated 2.22 m2 :57 Pulse 68 /min Comments: Pattern: Regular Respiration Rate 18 /min Comments: Pattern: Unlabored O2 SAT 97 % Comments: Room air BP Systolic 148 mm[Hg] Comments: Patient Position: Sitting; Cuff Location: Left Arm; Cuff Size: Large BP Diastolic 82 mm[Hg] Comments: Patient Position: Sitting; Cuff Location: Left Arm; Cuff Size: Large Weight 243.5 lb Height 67 in Body Mass Index Calculated 38.14 kg/m2 Body Surface Area Calculated 2.2 m2 :54 Pulse 69 /min Comments: Pattern: Regular Respiration Rate 18 /min Comments: Pattern: Unlabored O2 SAT 97 % Comments: Room air BP Systolic 132 mm[Hg] Comments: Patient Position: Sitting; Cuff Location: Left Arm; Cuff Size: Standard BP Diastolic 82 mm[Hg] Comments: Patient Position: Sitting; Cuff Location: Left Arm; Cuff Size: Standard Weight 243.5 lb Height 67 in Body Mass Index Calculated 38.14 kg/m2 Body Surface Area Calculated 2.2 m2 :48 Pulse 64 /min Comments: Pattern: Regular Respiration Rate 18 /min Comments: Pattern: Unlabored O2 SAT 94 % Comments: Room air BP Systolic 140 mm[Hg] Comments: Patient Position: Sitting; Cuff Location: Left Arm; Cuff Size: Large BP Diastolic 84 mm[Hg] Comments: Patient Position: Sitting; Cuff Location: Left Arm; Cuff Size: Large Weight 238.5 lb Height 67 in Body Mass Index Calculated 37.35 kg/m2 Body Surface Area Calculated 2.18 m2 :10 Weight 240 lb Height 67 in Body Mass Index Calculated 37.59 kg/m2 Body Surface Area Calculated 2.19 m2 :16 Pulse 70 /min Comments: Pattern: Regular Respiration Rate 18 /min Comments: Pattern: Unlabored O2 SAT 96 % Comments: Room air BP Systolic 118 mm[Hg] Comments: Patient Position: Sitting; Cuff Location: Left Arm; Cuff Size: Large BP Diastolic 80 mm[Hg] Comments: Patient Position: Sitting; Cuff Location: Left Arm; Cuff Size: Large Weight 240 lb Height 67 in Body Mass Index Calculated 37.59 kg/m2 Body Surface Area Calculated 2.19 m2 :19 Pulse 72 /min Comments: Pattern: Regular Respiration Rate 18 /min Comments: Pattern: Unlabored O2 SAT 97 % Comments: Room air BP Systolic 142 mm[Hg] Comments: Patient Position: Sitting; Cuff Location: Left Arm; Cuff Size: Large BP Diastolic 82 mm[Hg] Comments: Patient Position: Sitting; Cuff Location: Left Arm; Cuff Size: Large Weight 240 lb Height 67 in Body Mass Index Calculated 37.59 kg/m2 Body Surface Area Calculated 2.19 m2 :43 Pulse 73 /min Comments: Pattern: Regular Respiration Rate 18 /min Comments: Pattern: Unlabored O2 SAT 98 % Comments: Room air BP Systolic 132 mm[Hg] Comments: Patient Position: Sitting; Cuff Location: Left Arm; Cuff Size: Large BP Diastolic 78 mm[Hg] Comments: Patient Position: Sitting; Cuff Location: Left Arm; Cuff Size: Large Weight 240 lb Height 67 in Body Mass Index Calculated 37.59 kg/m2 Body Surface Area Calculated 2.19 m2 :51 Pulse 76 /min Comments: Pattern: Regular Respiration Rate 18 /min Comments: Pattern: Unlabored O2 SAT 96 % Comments: Room air BP Systolic 144 mm[Hg] Comments: Patient Position: Sitting; Cuff Location: Left Arm; Cuff Size: Large BP Diastolic 82 mm[Hg] Comments: Patient Position: Sitting; Cuff Location: Left Arm; Cuff Size: Large Weight 242 lb Height 67 in Body Mass Index Calculated 37.9 kg/m2 Body Surface Area Calculated 2.19 m2 :46 Pulse 131 /min Comments: Pattern: Regular Respiration Rate 18 /min Comments: Pattern: Unlabored O2 SAT 94 % Comments: Room air BP Systolic 138 mm[Hg] Comments: Patient Position: Sitting; Cuff Location: Left Arm; Cuff Size: Large BP Diastolic 82 mm[Hg] Comments: Patient Position: Sitting; Cuff Location: Left Arm; Cuff Size: Large Weight 224.5 lb Height 67 in Body Mass Index Calculated 35.16 kg/m2 Body Surface Area Calculated 2.12 m2 :03 Pulse 117 /min Comments: Pattern: Regular Respiration Rate 18 /min Comments: Pattern: Unlabored O2 SAT 96 % Comments: Room air BP Systolic 128 mm[Hg] Comments: Patient Position: Sitting; Cuff Location: Left Arm; Cuff Size: Large BP Diastolic 82 mm[Hg] Comments: Patient Position: Sitting; Cuff Location: Left Arm; Cuff Size: Large Weight 224.5 lb Height 67 in Body Mass Index Calculated 35.16 kg/m2 Body Surface Area Calculated 2.12 m2 :04 Temperature 97.3 f Comments: Method: Temporal Pulse 74 /min Comments: Pattern: Regular Respiration Rate 18 /min Comments: Pattern: Unlabored O2 SAT 97 % Comments: Room air BP Systolic 132 mm[Hg] Comments: Patient Position: Sitting; Cuff Location: Left Arm; Cuff Size: Large BP Diastolic 68 mm[Hg] Comments: Patient Position: Sitting; Cuff Location: Left Arm; Cuff Size: Large Weight 216.375 lb Height 67 in Body Mass Index Calculated 33.89 kg/m2 Body Surface Area Calculated 2.09 m2 :51 Pulse 81 /min Comments: Pattern: Regular Respiration Rate 18 /min Comments: Pattern: Unlabored O2 SAT 98 % Comments: Room air BP Systolic 122 mm[Hg] Comments: Patient Position: Sitting; Cuff Location: Left Arm; Cuff Size: Large BP Diastolic 62 mm[Hg] Comments: Patient Position: Sitting; Cuff Location: Left Arm; Cuff Size: Large Weight 215.375 lb :28 Pulse 78 /min Comments: Pattern: Regular Respiration Rate 18 /min Comments: Pattern: Unlabored O2 SAT 97 % Comments: Room air BP Systolic 128 mm[Hg] Comments: Patient Position: Sitting; Cuff Location: Left Arm; Cuff Size: Large BP Diastolic 80 mm[Hg] Comments: Patient Position: Sitting; Cuff Location: Left Arm; Cuff Size: Large Weight 215.375 lb :05 Pulse 82 /min Comments: Pattern: Regular Respiration Rate 18 /min Comments: Pattern: Unlabored O2 SAT 95 % Comments: Room air BP Systolic 142 mm[Hg] Comments: Patient Position: Sitting; Cuff Location: Left Arm; Cuff Size: Large BP Diastolic 90 mm[Hg] Comments: Patient Position: Sitting; Cuff Location: Left Arm; Cuff Size: Large Weight 215.375 lb :43 Temperature 98 f Pulse 97 /min Comments: Pattern: Regular Respiration Rate 18 /min Comments: Pattern: Unlabored O2 SAT 97 % Comments: Room air BP Systolic 122 mm[Hg] Comments: Patient Position: Sitting; Cuff Location: Left Arm; Cuff Size: Standard BP Diastolic 82 mm[Hg] Comments: Patient Position: Sitting; Cuff Location: Left Arm; Cuff Size: Standard Weight 234.25 lb :54 Temperature 98.1 f Comments: Method: Oral Pulse 84 /min Comments: Pattern: Regular Respiration Rate 16 /min Comments: Pattern: Unlabored O2 SAT 97 % Comments: Room air BP Systolic 122 mm[Hg] Comments: Patient Position: Sitting; Cuff Location: Left Arm; Cuff Size: Standard BP Diastolic 82 mm[Hg] Comments: Patient Position: Sitting; Cuff Location: Left Arm; Cuff Size: Standard Weight 215.125 lb :52 Temperature 98.1 f Comments: Method: Oral Pulse 75 /min Comments: Pattern: Regular Respiration Rate 16 /min O2 SAT 98 % Comments: Room air BP Systolic 132 mm[Hg] Comments: Patient Position: Sitting; Cuff Location: Left Arm; Cuff Size: Standard BP Diastolic 80 mm[Hg] Comments: Patient Position: Sitting; Cuff Location: Left Arm; Cuff Size: Standard Weight 215.125 lb :31 Temperature 97.8 f Comments: Method: Oral Pulse 74 /min Comments: Pattern: Regular O2 SAT 98 % Comments: Room air BP Systolic 130 mm[Hg] Comments: Patient Position: Sitting; Cuff Location: Left Arm; Cuff Size: Standard BP Diastolic 80 mm[Hg] Comments: Patient Position: Sitting; Cuff Location: Left Arm; Cuff Size: Standard Weight 226.375 lb Height 67 in Body Mass Index Calculated 35.45 kg/m2 Body Surface Area Calculated 2.13 m2 :29 Pulse 82 /min Comments: Pattern: Regular Respiration Rate 18 /min Comments: Pattern: Unlabored O2 SAT 98 % Comments: Room air BP Systolic 124 mm[Hg] Comments: Patient Position: Sitting; Cuff Location: Left Arm; Cuff Size: Large BP Diastolic 82 mm[Hg] Comments: Patient Position: Sitting; Cuff Location: Left Arm; Cuff Size: Large Weight 226.375 lb Height 67 in Body Mass Index Calculated 35.45 kg/m2 Body Surface Area Calculated 2.13 m2 :24 Pulse 88 /min Comments: Pattern: Regular Respiration Rate 20 /min Comments: Pattern: Unlabored O2 SAT 98 % Comments: Room air BP Systolic 124 mm[Hg] Comments: Patient Position: Sitting; Cuff Location: Left Arm; Cuff Size: Large BP Diastolic 78 mm[Hg] Comments: Patient Position: Sitting; Cuff Location: Left Arm; Cuff Size: Large Weight 226.3125 lb Height 67 in Body Mass Index Calculated 35.45 kg/m2 Body Surface Area Calculated 2.13 m2 :42 Temperature 98.4 f Comments: Method: Oral Pulse 79 /min Comments: Pattern: Regular Respiration Rate 20 /min Comments: Pattern: Unlabored O2 SAT 98 % Comments: Room air BP Systolic 142 mm[Hg] Comments: Patient Position: Sitting; Cuff Location: Left Arm; Cuff Size: Large BP Diastolic 90 mm[Hg] Comments: Patient Position: Sitting; Cuff Location: Left Arm; Cuff Size: Large Weight 220.375 lb Height 67 in Body Mass Index Calculated 34.52 kg/m2 Body Surface Area Calculated 2.11 m2 :20 Temperature 97.3 f Comments: Method: Tympanic Pulse 74 /min Comments: Pattern: Regular Respiration Rate 16 /min Comments: Pattern: Unlabored O2 SAT 98 % Comments: Room air BP Systolic 122 mm[Hg] Comments: Patient Position: Sitting; Cuff Location: Left Arm; Cuff Size: Large BP Diastolic 76 mm[Hg] Comments: Patient Position: Sitting; Cuff Location: Left Arm; Cuff Size: Large Weight 230 lb Height 67 in Body Mass Index Calculated 36.02 kg/m2 Body Surface Area Calculated 2.15 m2 :08 Pulse 79 /min Comments: Pattern: Regular Respiration Rate 16 /min Comments: Pattern: Unlabored O2 SAT 98 % Comments: Room air BP Systolic 124 mm[Hg] Comments: Patient Position: Sitting; Cuff Location: Left Arm; Cuff Size: Standard BP Diastolic 72 mm[Hg] Comments: Patient Position: Sitting; Cuff Location: Left Arm; Cuff Size: Standard Weight 233.4375 lb Height 67 in Body Mass Index Calculated 36.56 kg/m2 Body Surface Area Calculated 2.16 m2 :29 Pulse 64 /min Comments: Pattern: Regular Respiration Rate 18 /min Comments: Pattern: Unlabored O2 SAT 98 % Comments: Room air BP Systolic 120 mm[Hg] Comments: Patient Position: Sitting; Cuff Location: Left Arm; Cuff Size: Large BP Diastolic 62 mm[Hg] Comments: Patient Position: Sitting; Cuff Location: Left Arm; Cuff Size: Large Weight 233.4375 lb Height 67 in Body Mass Index Calculated 36.56 kg/m2 Body Surface Area Calculated 2.16 m2 :03 Temperature 98.2 f Comments: Method: Oral Pulse 76 /min Comments: Pattern: Regular Respiration Rate 20 /min Comments: Pattern: Unlabored BP Systolic 144 mm[Hg] Comments: Patient Position: Sitting; Cuff Location: Left Arm; Cuff Size: Standard BP Diastolic 94 mm[Hg] Comments: Patient Position: Sitting; Cuff Location: Left Arm; Cuff Size: Standard Weight 225 lb Height 67 in Body Mass Index Calculated 35.24 kg/m2 Body Surface Area Calculated 2.13 m2 :10 Temperature 98.3 f Comments: Method: Oral Pulse 60 /min Comments: Pattern: Regular Respiration Rate 18 /min Comments: Pattern: Unlabored BP Systolic 132 mm[Hg] Comments: Patient Position: Sitting; Cuff Location: Left Arm; Cuff Size: Large BP Diastolic 82 mm[Hg] Comments: Patient Position: Sitting; Cuff Location: Left Arm; Cuff Size: Large Weight 225.4375 lb Height 67 in Body Mass Index Calculated 35.31 kg/m2 Body Surface Area Calculated 2.13 m2 :07 Temperature 98.1 f Comments: Method: Oral Pulse 80 /min Comments: Pattern: Regular Respiration Rate 20 /min Comments: Pattern: Unlabored BP Systolic 128 mm[Hg] Comments: Patient Position: Sitting; Cuff Location: Left Arm; Cuff Size: Large BP Diastolic 82 mm[Hg] Comments: Patient Position: Sitting; Cuff Location: Left Arm; Cuff Size: Large Weight 231.5 lb Height 67 in Body Mass Index Calculated 36.26 kg/m2 Body Surface Area Calculated 2.15 m2 :37 Comments: machine is 145/97, 87 Temperature 97.2 f Comments: Method: Oral Pulse 78 /min Comments: Pattern: Regular Respiration Rate 16 /min Comments: Pattern: Unlabored BP Systolic 142 mm[Hg] Comments: Patient Position: Sitting; Cuff Location: Left Arm; Cuff Size: Standard BP Diastolic 80 mm[Hg] Comments: Patient Position: Sitting; Cuff Location: Left Arm; Cuff Size: Standard Weight 233 lb Height 67 in Body Mass Index Calculated 36.49 kg/m2 Body Surface Area Calculated 2.16 m2 :01 Pulse 64 /min Comments: Pattern: Regular Respiration Rate 16 /min Comments: Pattern: Unlabored BP Systolic 152 mm[Hg] Comments: Patient Position: Sitting; Cuff Location: Left Arm; Cuff Size: Standard BP Diastolic 84 mm[Hg] Comments: Patient Position: Sitting; Cuff Location: Left Arm; Cuff Size: Standard Weight 229 lb Height 67 in Body Mass Index Calculated 35.87 kg/m2 Body Surface Area Calculated 2.14 m2 :04 Temperature 98 f Comments: Method: Oral Pulse 64 /min Comments: Pattern: Regular Respiration Rate 20 /min Comments: Pattern: Unlabored BP Systolic 138 mm[Hg] Comments: Patient Position: Sitting; Cuff Location: Left Arm; Cuff Size: Large BP Diastolic 82 mm[Hg] Comments: Patient Position: Sitting; Cuff Location: Left Arm; Cuff Size: Large Weight 229 lb Height 67 in Body Mass Index Calculated 35.87 kg/m2 Body Surface Area Calculated 2.14 m2 :07 Pulse 64 /min Comments: Pattern: Regular Respiration Rate 18 /min Comments: Pattern: Unlabored BP Systolic 142 mm[Hg] Comments: Patient Position: Sitting; Cuff Location: Left Arm; Cuff Size: Large BP Diastolic 86 mm[Hg] Comments: Patient Position: Sitting; Cuff Location: Left Arm; Cuff Size: Large Weight 227.4375 lb Height 67 in Body Mass Index Calculated 35.62 kg/m2 Body Surface Area Calculated 2.14 m2 :14 Pulse 60 /min Comments: Pattern: Regular Respiration Rate 18 /min Comments: Pattern: Unlabored BP Systolic 142 mm[Hg] Comments: Patient Position: Sitting; Cuff Location: Left Arm; Cuff Size: Large BP Diastolic 70 mm[Hg] Comments: Patient Position: Sitting; Cuff Location: Left Arm; Cuff Size: Large Weight 230.5625 lb Height 67 in Body Mass Index Calculated 36.11 kg/m2 Body Surface Area Calculated 2.15 m2 :56 Temperature 98.7 f Comments: Method: Oral Pulse 74 /min Comments: Pattern: Regular Respiration Rate 16 /min Comments: Pattern: Unlabored BP Systolic 166 mm[Hg] Comments: Patient Position: Sitting; Cuff Location: Left Arm; Cuff Size: Standard BP Diastolic 74 mm[Hg] Comments: Patient Position: Sitting; Cuff Location: Left Arm; Cuff Size: Standard Weight 226.1875 lb Height 67 in Body Mass Index Calculated 35.43 kg/m2 Body Surface Area Calculated 2.13 m2 :04 Temperature 97.8 f Comments: Method: Oral Pulse 72 /min Comments: Pattern: Regular Respiration Rate 20 /min Comments: Pattern: Unlabored BP Systolic 128 mm[Hg] Comments: Patient Position: Sitting; Cuff Location: Left Arm; Cuff Size: Large BP Diastolic 78 mm[Hg] Comments: Patient Position: Sitting; Cuff Location: Left Arm; Cuff Size: Large Weight 226.1875 lb Height 67 in Body Mass Index Calculated 35.43 kg/m2 Body Surface Area Calculated 2.13 m2 :30 Temperature 97.6 f Comments: Method: Oral Pulse 68 /min Comments: Pattern: Regular Respiration Rate 16 /min Comments: Pattern: Unlabored BP Systolic 124 mm[Hg] Comments: Patient Position: Sitting; Cuff Location: Left Arm; Cuff Size: Standard BP Diastolic 76 mm[Hg] Comments: Patient Position: Sitting; Cuff Location: Left Arm; Cuff Size: Standard Weight 221.6 lb :42 Temperature 98.8 f Comments: Method: Oral Pulse 64 /min Comments: Pattern: Regular Respiration Rate 20 /min Comments: Pattern: Unlabored BP Systolic 128 mm[Hg] Comments: Patient Position: Sitting; Cuff Location: Left Arm; Cuff Size: Large BP Diastolic 84 mm[Hg] Comments: Patient Position: Sitting; Cuff Location: Left Arm; Cuff Size: Large Weight 212.5625 lb :03 Pulse 68 /min Comments: Pattern: Regular Respiration Rate 20 /min Comments: Pattern: Unlabored BP Systolic 120 mm[Hg] Comments: Patient Position: Sitting; Cuff Location: Left Arm; Cuff Size: Large BP Diastolic 78 mm[Hg] Comments: Patient Position: Sitting; Cuff Location: Left Arm; Cuff Size: Large Weight 215.25 lb :12 Pulse 64 /min Comments: Pattern: Regular Respiration Rate 20 /min Comments: Pattern: Unlabored BP Systolic 122 mm[Hg] Comments: Patient Position: Sitting; Cuff Location: Left Arm; Cuff Size: Large BP Diastolic 78 mm[Hg] Comments: Patient Position: Sitting; Cuff Location: Left Arm; Cuff Size: Large Weight 215 lb :13 Pulse 76 /min Comments: Pattern: Regular Respiration Rate 20 /min Comments: Pattern: Unlabored BP Systolic 124 mm[Hg] Comments: Patient Position: Sitting; Cuff Location: Left Arm; Cuff Size: Large BP Diastolic 78 mm[Hg] Comments: Patient Position: Sitting; Cuff Location: Left Arm; Cuff Size: Large Weight 227.0625 lb :19 Pulse 76 /min Comments: Pattern: Regular Respiration Rate 18 /min Comments: Pattern: Unlabored BP Systolic 130 mm[Hg] Comments: Patient Position: Sitting; Cuff Location: Left Arm; Cuff Size: Large BP Diastolic 92 mm[Hg] Comments: Patient Position: Sitting; Cuff Location: Left Arm; Cuff Size: Large Weight 223 lb :44 Pulse 79 /min Comments: Pattern: Regular Respiration Rate 18 /min Comments: Pattern: Unlabored BP Systolic 120 mm[Hg] Comments: Patient Position: Sitting; Cuff Location: Left Arm; Cuff Size: Large BP Diastolic 70 mm[Hg] Comments: Patient Position: Sitting; Cuff Location: Left Arm; Cuff Size: Large Weight 0 lb Height 0 in Head Circumference 0.00 cm :13 Pulse 64 /min Comments: Pattern: Regular Respiration Rate 16 /min Comments: Pattern: Unlabored BP Systolic 138 mm[Hg] Comments: Patient Position: Sitting; Cuff Location: Left Arm; Cuff Size: Standard BP Diastolic 82 mm[Hg] Comments: Patient Position: Sitting; Cuff Location: Left Arm; Cuff Size: Standard Weight 222 lb Height 0 in Head Circumference 0.00 cm :26 Pulse 80 /min Comments: Pattern: Regular Respiration Rate 20 /min Comments: Pattern: Unlabored BP Systolic 122 mm[Hg] Comments: Patient Position: Sitting; Cuff Location: Left Arm; Cuff Size: Large BP Diastolic 68 mm[Hg] Comments: Patient Position: Sitting; Cuff Location: Left Arm; Cuff Size: Large Weight 222 lb Height 0 in Head Circumference 0.00 cm Results Date Description Value Details :39 Lipase Comments: [facility] [id number] [place], [id number] LIPASE 127 U/L (Normal) Range: 73-393 :39 Liver Profile Comments: [facility] [id number] [place], [id number] D BILI 0.07 mg/dL (Normal) Range: 0.00-0.30 T BILI 0.30 mg/dL (Normal) Range: 0.20-1.00 ALT 37 U/L (Normal) Range: 13-56 ALK P 88 U/L (Normal) Range: 45-117 AST 30 U/L (Normal) Range: 15-37 GLOB 3.6 g/dL (Normal) Range: 2.2-4.2 ALB 3.9 g/dL (Normal) Range: 3.2-5.0 T PROT 7.5 g/dL (Normal) Range: 6.4-8.2 :10 Basic Metabolic Profile (BMP) Comments: [facility] [id number] [place], [address] GAP 9 (Normal) Range: 5-15 CO2 26.0 mmol/L (Normal) Range: 21.0-32.0 CL 103 mmol/L (Normal) Range: 98-107 K 3.8 mmol/L (Normal) Range: 3.5-5.1 NA 138 mmol/L (Normal) Range: 136-145 CA 8.8 mg/dL (Normal) Range: 8.5-10.1 BUN/CRE 17.4 {RATIO} (Normal) Range: 10-20 Estimated CRCL 88.90 ml/min (Normal) EST GFR - AA 123 mL/min (Normal) Comments: GFR Calc EST GFR 101 mL/min (Normal) Comments: Non- GFR Calc CREAT,SERUM 0.63 mg/dL (Normal) Range: 0.55-1.02 Comments: The validity of the calculated GFR AND GFRAA in patients over70 years has not been determined. Clinical correlation isessential. BUN 11 mg/dL (Normal) Range: 7-18 GLU 108 mg/dL (Abnormal) Range: 74-106 Comments: Fasting Glucose result from 100 to 125 mg/dLsuggests IMPAIRED HOMEOSTASIS per A.D.A. criteria.Please note revised GLUCOSE reference range rkxkhrsel19/02/2018. [id number] CBC W/Diff, Automated Comments: [facility] [id number] [place], [place], [phone] Absolute Lymph 1.31 {X10_3/ul} (Normal) Range: 0.83-4.51 Absolute Neut 4.9 {X10_3/uL} (Normal) Range: 2.0-7.7 IM GRAN % 0.300 % (Normal) Range: 0.0-0.9 Comments: IG% - Immature Granulocytes (promyelocytes, myelocytes andmetamyelocytes) > 1% indicates that a LEFT SHIFT is Present. BASO% 0.1 % (Normal) Range: 0-1 EO% 1.3 % (Normal) Range: 0-5 MONO% 8.7 % (Normal) Range: 0-10 LY% 18.9 % (Abnormal) Range: 19-41 NEUT% 70.7 % (Abnormal) Range: 47-70 MPV 12.0 fL (Normal) Range: 6.2-12.0 PLT 251 K/mm3 (Normal) Range: 150-450 RDW SD 48.3 fL (Abnormal) Range: 35.1-43.9 RDW CV 14.8 % (Abnormal) Range: 11.6-14.6 MCHC 32.9 {g/gl} (Normal) Range: 32-36 MCH 29.6 pg (Normal) Range: 27.0-32.0 MCV 89.8 fL (Normal) Range: 81-99 HCT 40.7 % (Normal) Range: 37-47 HGB 13.4 g/dL (Normal) Range: 12.0-15.0 RBC 4.53 {M/mm3} (Normal) Range: 4.2-5.4 WBC 6.9 K/mm3 (Normal) Range: 4.4-11.0 [id number]-[id number]:10 Prothrombin Time w/INR Comments: [facility] [id number] [place], [place], [id number] INR 1.5 (Normal) PROTIME 17.9 s (Abnormal) Range: 11.7-14.9 [id number] Troponin-I Comments: [facility] [id number] [place], [place], [id number] TROPONIN-I < 0.015 ng/mL (Normal) Comments: TROPONIN-I EXPECTED VALUES <0.045 Negative 0.045 - 0.590 Consistent with Cardiac Damage > OR = 0.600 Critical Value Not every elevated troponin is indicative of [place]. T hesevalues should be used with clinical judgement in examiningthe patient's clinical picture for diagnosis. To establisha diagnosis of NH versus myocardial injury, there must be ademonstrated rise and/ or fall in the troponin values, inaddition to ischemic symptoms, EKG changes, new regionalwall motion abnormality, and/or angiographical evidence. PLEASE NOTE: REFERENCE RANGES EDITED 12/30/1710-Feb-201842-Uam-024573:44 Basic Metabolic Profile (BMP) Comments: [facility] [address] [place], [place], [id number] GAP 8 (Normal) Range: 5-15 CO2 28.0 mmol/L (Normal) Range: 21.0-32.0 CL 101 mmol/L (Normal) Range: 98-107 K 3.8 mmol/L (Normal) Range: 3.5-5.1 NA 137 mmol/L (Normal) Range: 136-145 CA 9.2 mg/dL (Normal) Range: 8.5-10.1 BUN/CRE 16.0 {RATIO} (Normal) Range: 10-20 EST GFR - AA 112 mL/min (Normal) Comments: GFR Calc EST GFR 93 mL/min (Normal) Comments: Non- GFR Calc CREAT,SERUM 0.69 mg/dL (Normal) Range: 0.55-1.02 Comments: The validity of the calculated GFR AND GFRAA in patients over70 years has not been determined. Clinical correlation isessential. BUN 11 mg/dL (Normal) Range: 7-18 GLU 102 mg/dL (Normal) Range: 74-106 Comments: Fasting Glucose result from 100 to 125 mg/dLsuggests IMPAIRED HOMEOSTASIS per A.D.A. criteria.Please note revised GLUCOSE reference range awmhcwluj10/02/2018. 11-Evb-192206:44 CBC-Complete Blood Cnt No Diff Comments: [facility] [address] [place], [place], [id number] MPV 11.4 fL (Normal) Range: 6.2-12.0 PLT 267 K/mm3 (Normal) Range: 150-450 RDW SD 44.7 fL (Abnormal) Range: 35.1-43.9 RDW CV 13.9 % (Normal) Range: 11.6-14.6 MCHC 33.5 {g/gl} (Normal) Range: 32-36 MCH 29.6 pg (Normal) Range: 27.0-32.0 MCV 88.5 fL (Normal) Range: 81-99 HCT 40.6 % (Normal) Range: 37-47 HGB 13.6 g/dL (Normal) Range: 12.0-15.0 RBC 4.59 {M/mm3} (Normal) Range: 4.2-5.4 WBC 6.2 K/mm3 (Normal) Range: 4.4-11.0 34-Gjt-081560:44 Partial Thromboplast Time Comments: [facility] [address] [place], [address] PTT 37.7 s (Abnormal) Range: 24.1-36.2 31-Hvp-272433:44 Prothrombin Time w/INR Comments: [facility] [address] [place], [place], [id number] INR 1.8 (Normal) PROTIME 21.0 s (Abnormal) Range: 11.7-14.9 7-Bov-337998:37 Urinalysis, Office (43776) UA - LEUKOCYTE ESTERASE Moderate (Normal) UA - NITRITE Negative (Normal) URINE UROBILINGN RUBEN TIMED 2 mg/dL (Normal) UA - PROTEIN Negative mg/dL (Normal) UA - PH 7.0 (Normal) UA - BLOOD Hemolyzed Trace (Normal) UA - SPECIFIC GRAVITY 1.010 (Normal) UA - KETONES Negative mg/dL (Normal) UA - BILIRUBIN Negative (Normal) UA - GLUCOSE Negative (Normal) 6-Qiu-977652:33 Blood Glucose , Office (69086) Blood Glucose , Office 131 (Normal) 3-Qlc-120366:33 HgA1C , Office (35764) HgA1C , Office 5.9 % (Normal) Range: 4.6 - 7.1 2-Dfm-010856:22 H-Pylori IGA,IGG,IGM (03759) Comments: PATIENT NOT FASTINGPERFORMED BY: [facility] [facility] [id number] H pylori, IgM Abs <9.0 {units} (Normal) Range: 0.0-8.9 Comments: Negative <9.0 Equivocal 9.0 - 11.0 Positive >11.0 .This test was developed and its performance characteristicsdetermined by [employer]. It has not been cleared or approvedby the Food and Drug Administration. H. pylori, IgA Abs <9.0 {units} (Normal) Range: 0.0-8.9 Comments: Negative <9.0 Equivocal 9.0 - 11.0 Positive >11.0 H. pylori, IgG Abs <0.9 U/mL (Normal) Range: 0.0-0.8 Comments: Negative <0.9 Indeterminate 0.9 - 1.0 Positive >1.0 Effective August the reference interval will be changing to: Negative <0.8 Equivocal 0.8 Positive >0.8 4-Uqm-741531:19 Microscopic Examination Comments: PATIENT WAS FASTINGPERFORMED BY: [facility] [facility] [id number] Bacteria Few (Normal) Mucus Threads Present (Normal) Epithelial Cells (non renal) >10 {/hpf} (Abnormal) Range: 0 - 10 RBC 3-10 {/hpf} (Abnormal) Range: 0 - 2 WBC >30 {/hpf} (Abnormal) Range: 0 - 5 2-Omy-341441:21 Basic Metabolic Profile (BMP) Comments: Order Date: 05/08/17Order Info: [id number] - *BMPComments: Reason:[facility] [address] [place], [place], [id number] GAP 5 (Normal) Range: 5-15 CO2 31.0 mmol/L (Normal) Range: 21.0-32.0 CL 100 mmol/L (Normal) Range: 98-107 K 3.8 mmol/L (Normal) Range: 3.5-5.1 NA 136 mmol/L (Normal) Range: 136-145 CA 9.1 mg/dL (Normal) Range: 8.5-10.1 BUN/CRE 21.6 {RATIO} (Abnormal) Range: 10-20 EST GFR - AA 120 mL/min (Normal) Comments: GFR Calc EST GFR 99 mL/min (Normal) Comments: Non- GFR Calc CREAT,SERUM 0.65 mg/dL (Normal) Range: 0.55-1.02 Comments: The validity of the calculated GFR AND GFRAA in patients over70 years has not been determined. Clinical correlation isessential. BUN 14 mg/dL (Normal) Range: 7-18 GLU 93 mg/dL (Normal) Range: 70-110 53-Jzr-690701:34 HGB A1C (42536) Comments: PATIENT WAS FASTINGPERFORMED BY: [facility] [id number] Hemoglobin A1c 6.5 % (Abnormal) Range: 4.8-5.6 Comments: . Pre-diabetes: 5.7 - 6.4 Diabetes: >6.4 Glycemic control for adults with diabetes: <7.0 85-Flz-325143:34 MICROALBUMIN: CREATININE RATIO Comments: PATIENT WAS FASTINGPERFORMED BY: [facility] [id number] (75851) AND (93799) Microalb/Creat Ratio <13.7 {mg/g_creat} (Normal) Range: 0.0-30.0 Microalbumin, Urine <3.0 ug/mL (Normal) Creatinine, Urine 21.9 mg/dL (Normal) 81-Yhy-821158:34 TSH (91500) Comments: PATIENT WAS FASTINGPERFORMED BY: [facility] [id number] TSH 2.420 {uIU/mL} (Normal) Range: 0.450-4.500 24-Dsd-479871:34 Lipid Panel (72766) Comments: PATIENT WAS FASTINGPERFORMED BY: Wikinvest RoadDublin [place] [id number] LDL/HDL Ratio 1.9 {ratio_units} (Normal) Range: 0.0-3.2 Comments: LDL/HDL Ratio Men Women 1/2 Avg.Risk 1.0 1.5 Av g.Risk 3.6 3.2 2X Avg.Risk 6.2 5.0 3X Avg.Risk 8.0 6.1 LDL Cholesterol Calc 132 mg/dL (Abnormal) Range: 0-99 VLDL Cholesterol Aneesh 15 mg/dL (Normal) Range: 5-40 HDL Cholesterol 71 mg/dL (Normal) Triglycerides 73 mg/dL (Normal) Range: 0-149 Cholesterol, Total 218 mg/dL (Abnormal) Range: 100-199 12-Hqc-412119:34 Metabolic Panel, Comprehensive Comments: PATIENT WAS FASTINGPERFORMED BY: LabCoBristol-My[facility] Squibb Children's HospitalWnrbuf1168 [facility] [id number] (35524) ALT (SGPT) 27 [iU]/L (Normal) Range: 0-32 AST (SGOT) 21 [iU]/L (Normal) Range: 0-40 Alkaline Phosphatase, S 69 [iU]/L (Normal) Range: 39-117 Bilirubin, Total 0.4 mg/dL (Normal) Range: 0.0-1.2 A/G Ratio 1.5 (Normal) Range: 1.2-2.2 Globulin, Total 2.9 g/dL (Normal) Range: 1.5-4.5 Albumin, Serum 4.3 g/dL (Normal) Range: 3.5-5.5 Protein, Total, Serum 7.2 g/dL (Normal) Range: 6.0-8.5 Calcium, Serum 9.7 mg/dL (Normal) Range: 8.7-10.2 Carbon Dioxide, Total 25 mmol/L (Normal) Range: 18-29 Chloride, Serum 98 mmol/L (Normal) Range: 96-106 Potassium, Serum 5.2 mmol/L (Normal) Range: 3.5-5.2 Sodium, Serum 142 mmol/L (Normal) Range: 134-144 BUN/Creatinine Ratio 23 (Normal) Range: 9-23 eGFR If Africn Am 112 mL/min/1.73 (Normal) eGFR If NonAfricn Am 97 mL/min/1.73 (Normal) Creatinine, Serum 0.65 mg/dL (Normal) Range: 0.57-1.00 BUN 15 mg/dL (Normal) Range: 6-24 Glucose, Serum 96 mg/dL (Normal) Range: 65-99 34-Zuv-277530:34 CBC WITH MANUAL DIFF (71461) Comments: PATIENT WAS FASTINGPERFORMED BY: [facility] [facility] [id number] Immature Grans (Abs) 0.0 {x10E3/uL} (Normal) Range: 0.0-0.1 Immature Granulocytes 0 % (Normal) Baso (Absolute) 0.0 {x10E3/uL} (Normal) Range: 0.0-0.2 Eos (Absolute) 0.1 {x10E3/uL} (Normal) Range: 0.0-0.4 Monocytes(Absolute) 0.5 {x10E3/uL} (Normal) Range: 0.1-0.9 Lymphs (Absolute) 1.6 {x10E3/uL} (Normal) Range: 0.7-3.1 Neutrophils (Absolute) 5.2 {x10E3/uL} (Normal) Range: 1.4-7.0 Basos 0 % (Normal) Eos 1 % (Normal) Monocytes 7 % (Normal) Lymphs 22 % (Normal) Neutrophils 70 % (Normal) Platelets 258 {x10E3/uL} (Normal) Range: 150-379 RDW 14.7 % (Normal) Range: 12.3-15.4 MCHC 32.2 g/dL (Normal) Range: 31.5-35.7 MCH 29.9 pg (Normal) Range: 26.6-33.0 MCV 93 fL (Normal) Range: 79-97 Hematocrit 39.7 % (Normal) Range: 34.0-46.6 Hemoglobin 12.8 g/dL (Normal) Range: 11.1-15.9 RBC 4.28 {x10E6/uL} (Normal) Range: 3.77-5.28 WBC 7.4 {x10E3/uL} (Normal) Range: 3.4-10.8 :19 TSH (49451) Comments: PATIENT WAS FASTINGPERFORMED BY: [facility] [place] [facility] [place] [id number] TSH 2.050 {uIU/mL} (Normal) Range: 0.450-4.500 :19 URINALYSIS, W/ MICRO (13003) Comments: PATIENT WAS FASTINGPERFORMED BY: [facility] [facility] [id number] Microscopic Examination See below: (Normal) Comments: Microscopic was indicated and was performed. Nitrite, Urine Negative (Normal) Urobilinogen,Semi-Qn 0.2 mg/dL (Normal) Range: 0.2-1.0 Bilirubin Negative (Normal) Occult Blood 1+ (Abnormal) Ketones Negative (Normal) Glucose Negative (Normal) Protein Negative (Normal) WBC Esterase 3+ (Abnormal) Appearance Cloudy (Abnormal) Urine-Color Yellow (Normal) pH 7.0 (Normal) Range: 5.0-7.5 Specific [place] 1.015 (Normal) Range: 1.005-1.030 :19 MICROALBUMIN: CREATININE RATIO Comments: PATIENT WAS FASTINGPERFORMED BY: [facility] [facility] [id number] ([id number]) AND (03848) Microalb/Creat Ratio 9.1 {mg/g_creat} (Normal) Range: 0.0-30.0 Microalbumin, Urine 7.4 ug/mL (Normal) Creatinine, Urine 81.3 mg/dL (Normal) :19 METABOLIC PANEL, COMPREHENSIVE Comments: PATIENT WAS FASTINGPERFORMED BY: [facility] [facility] [id number] ([id number]) ALT (SGPT) 43 [iU]/L (Abnormal) Range: 0-32 AST (SGOT) 31 [iU]/L (Normal) Range: 0-40 Alkaline Phosphatase, S 77 [iU]/L (Normal) Range: 39-117 Bilirubin, Total 0.4 mg/dL (Normal) Range: 0.0-1.2 A/G Ratio 1.4 (Normal) Range: 1.2-2.2 Globulin, Total 3.0 g/dL (Normal) Range: 1.5-4.5 Albumin, Serum 4.3 g/dL (Normal) Range: 3.6-4.8 Protein, Total, Serum 7.3 g/dL (Normal) Range: 6.0-8.5 Calcium, Serum 9.3 mg/dL (Normal) Range: 8.7-10.3 Carbon Dioxide, Total 26 mmol/L (Normal) Range: 18-29 Chloride, Serum 98 mmol/L (Normal) Range: 96-106 Potassium, Serum 4.5 mmol/L (Normal) Range: 3.5-5.2 Sodium, Serum 140 mmol/L (Normal) Range: 134-144 BUN/Creatinine Ratio 20 (Normal) Range: 12-28 eGFR If Africn Am 118 mL/min/1.73 (Normal) eGFR If NonAfricn Am 102 mL/min/1.73 (Normal) Creatinine, Serum 0.55 mg/dL (Abnormal) Range: 0.57-1.00 BUN 11 mg/dL (Normal) Range: 8-27 Glucose, Serum 104 mg/dL (Abnormal) Range: 65-99 6-Vjn-991193:19 LIPID PANEL (23637) Comments: PATIENT WAS FASTINGPERFORMED BY: [email or web address] [facility] [id number] LDL/HDL Ratio 2.7 {ratio_units} (Normal) Range: 0.0-3.2 Comments: LDL/HDL Ratio Men Women 1/2 Avg.Risk 1.0 1.5 Av g.Risk 3.6 3.2 2X Avg.Risk 6.2 5.0 3X Avg.Risk 8.0 6.1 LDL Cholesterol Calc 145 mg/dL (Abnormal) Range: 0-99 VLDL Cholesterol Aneesh 18 mg/dL (Normal) Range: 5-40 HDL Cholesterol 53 mg/dL (Normal) Triglycerides 89 mg/dL (Normal) Range: 0-149 Cholesterol, Total 216 mg/dL (Abnormal) Range: 100-199 7-Elg-212621:19 CBC W/AUTO DIFF WBC (93789) Comments: PATIENT WAS FASTINGPERFORMED BY: [email or web address] [facility] [id number] Immature Grans (Abs) 0.0 {x10E3/uL} (Normal) Range: 0.0-0.1 Immature Granulocytes 0 % (Normal) Baso (Absolute) 0.0 {x10E3/uL} (Normal) Range: 0.0-0.2 Eos (Absolute) 0.1 {x10E3/uL} (Normal) Range: 0.0-0.4 Monocytes(Absolute) 0.4 {x10E3/uL} (Normal) Range: 0.1-0.9 Lymphs (Absolute) 1.2 {x10E3/uL} (Normal) Range: 0.7-3.1 Neutrophils (Absolute) 4.2 {x10E3/uL} (Normal) Range: 1.4-7.0 Basos 0 % (Normal) Eos 2 % (Normal) Monocytes 7 % (Normal) Lymphs 20 % (Normal) Neutrophils 71 % (Normal) Platelets 253 {x10E3/uL} (Normal) Range: 150-379 RDW 14.3 % (Normal) Range: 12.3-15.4 MCHC 32.8 g/dL (Normal) Range: 31.5-35.7 MCH 29.6 pg (Normal) Range: 26.6-33.0 MCV 90 fL (Normal) Range: 79-97 Hematocrit 40.5 % (Normal) Range: 34.0-46.6 Hemoglobin 13.3 g/dL (Normal) Range: 11.1-15.9 Comments: Please note reference interval change RBC 4.50 {x10E6/uL} (Normal) Range: 3.77-5.28 WBC 5.9 {x10E3/uL} (Normal) Range: 3.4-10.8 :19 HGB A1C (61455) Comments: PATIENT WAS FASTINGPERFORMED BY: [email or web address] [facility] [id number] Hemoglobin A1c 6.2 % (Abnormal) Range: 4.8-5.6 Comments: . Pre-diabetes: 5.7 - 6.4 Diabetes: >6.4 Glycemic control for adults with diabetes: <7.0 :19 HGB A1C (38410) Comments: PATIENT NOT FASTINGPERFORMED BY: [facility] Geximf7499 [facility] [id number] Hemoglobin A1c 6.2 % (Abnormal) Range: 4.8-5.6 Comments: . Pre-diabetes: 5.7 - 6.4 Diabetes: >6.4 Glycemic control for adults with diabetes: <7.0 36-Gry-659443:33 Basic Metabolic Profile (BMP) Comments: Order Date: 06/21/16Order Info: [id number] - *BMPOrder Date: 06/21/16Order Info: [id number] - *BMPComments: Reason:[facility] [address] [place], [place], [address] GAP 8 (Normal) Range: 5-15 CO2 27.0 mmol/L (Normal) Range: 21.0-32.0 CL 102 mmol/L (Normal) Range: 98-107 K 4.3 mmol/L (Normal) Range: 3.5-5.1 Comments: Slight Hemolysis, Result may be falsely increased. NA 137 mmol/L (Normal) Range: 136-145 CA 8.7 mg/dL (Normal) Range: 8.5-10.1 BUN/CRE 25.9 {RATIO} (Abnormal) Range: 10-20 EST GFR - AA 119 mL/min (Normal) Comments: GFR Calc EST GFR 98 mL/min (Normal) Comments: Non- GFR Calc CREAT,SERUM 0.66 mg/dL (Normal) Range: 0.55-1.02 Comments: The validity of the calculated GFR AND GFRAA in patients over70 years has not been determined. Clinical correlation isessential. BUN 17 mg/dL (Normal) Range: 7-18 GLU 89 mg/dL (Normal) Range: 70-110 54-Bfz-868151:37 Microscopic Examination Comments: PATIENT NOT FASTINGPERFORMED BY: [email or web address] VuCOMPFormerly [facility] [id number] Bacteria None seen (Normal) Mucus Threads Present (Normal) Epithelial Cells (non renal) 0-10 {/hpf} (Normal) Range: 0 - 10 RBC 0-2 {/hpf} (Normal) Range: 0 - 2 WBC 0-5 {/hpf} (Normal) Range: 0 - 5 67-Hco-820343:37 URINALYSIS, W/ MICRO (28295) Comments: PATIENT NOT FASTINGPERFORMED BY: [email or web address] VuCOMPFormerly [facility] [id number] Microscopic Examination See below: (Normal) Comments: Microscopic was indicated and was performed. Nitrite, Urine Negative (Normal) Urobilinogen,Semi-Qn 0.2 mg/dL (Normal) Range: 0.2-1.0 Bilirubin Negative (Normal) Occult Blood Negative (Normal) Ketones Negative (Normal) Glucose Negative (Normal) Protein Negative (Normal) WBC Esterase 2+ (Abnormal) Appearance Clear (Normal) Urine-Color Yellow (Normal) pH 8.0 (Abnormal) Range: 5.0-7.5 Specific [place] 1.011 (Normal) Range: 1.005-1.030 :37 TSH (32378) Comments: PATIENT NOT FASTINGPERFORMED BY: [facility] Teopjh0701 [facility] [id number] TSH 2.050 {uIU/mL} (Normal) Range: 0.450-4.500 :37 METABOLIC PANEL, COMPREHENSIVE Comments: PATIENT NOT FASTINGPERFORMED BY: [facility] Skeyls2898 [facility] [id number] ([id number]) ALT (SGPT) 31 [iU]/L (Normal) Range: 0-32 AST (SGOT) 22 [iU]/L (Normal) Range: 0-40 Alkaline Phosphatase, S 86 [iU]/L (Normal) Range: 39-117 Bilirubin, Total 0.6 mg/dL (Normal) Range: 0.0-1.2 A/G Ratio 1.6 (Normal) Range: 1.1-2.5 Globulin, Total 3.0 g/dL (Normal) Range: 1.5-4.5 Albumin, Serum 4.7 g/dL (Normal) Range: 3.5-5.5 Protein, Total, Serum 7.7 g/dL (Normal) Range: 6.0-8.5 Calcium, Serum 9.9 mg/dL (Normal) Range: 8.7-10.2 Carbon Dioxide, Total 25 mmol/L (Normal) Range: 18-29 Chloride, Serum 98 mmol/L (Normal) Range: 97-108 Potassium, Serum 5.5 mmol/L (Abnormal) Range: 3.5-5.2 Sodium, Serum 140 mmol/L (Normal) Range: 134-144 BUN/Creatinine Ratio 17 (Normal) Range: 9-23 eGFR If Africn Am 113 mL/min/1.73 (Normal) eGFR If NonAfricn Am 98 mL/min/1.73 (Normal) Creatinine, Serum 0.65 mg/dL (Normal) Range: 0.57-1.00 BUN 11 mg/dL (Normal) Range: 6-24 Glucose, Serum 96 mg/dL (Normal) Range: 65-99 09-Lgt-881259:37 CBC W/AUTO DIFF WBC (72126) Comments: PATIENT NOT FASTINGPERFORMED BY: LabCoBristol-Myers Squibb Children's HospitalKijjhu7967 [facility] [id number] Immature Grans (Abs) 0.0 {x10E3/uL} (Normal) Range: 0.0-0.1 Immature Granulocytes 0 % (Normal) Baso (Absolute) 0.0 {x10E3/uL} (Normal) Range: 0.0-0.2 Eos (Absolute) 0.1 {x10E3/uL} (Normal) Range: 0.0-0.4 Monocytes(Absolute) 0.6 {x10E3/uL} (Normal) Range: 0.1-0.9 Lymphs (Absolute) 1.8 {x10E3/uL} (Normal) Range: 0.7-3.1 Neutrophils (Absolute) 4.0 {x10E3/uL} (Normal) Range: 1.4-7.0 Basos 0 % (Normal) Eos 1 % (Normal) Monocytes 9 % (Normal) Lymphs 28 % (Normal) Neutrophils 62 % (Normal) Platelets 332 {x10E3/uL} (Normal) Range: 150-379 RDW 14.3 % (Normal) Range: 12.3-15.4 MCHC 33.5 g/dL (Normal) Range: 31.5-35.7 MCH 29.8 pg (Normal) Range: 26.6-33.0 MCV 89 fL (Normal) Range: 79-97 Hematocrit 40.6 % (Normal) Range: 34.0-46.6 Hemoglobin 13.6 g/dL (Normal) Range: 11.1-15.9 RBC 4.56 {x10E6/uL} (Normal) Range: 3.77-5.28 WBC 6.5 {x10E3/uL} (Normal) Range: 3.4-10.8 :08 HgA1C , Office (32075) HgA1C , Office 5.9 % (Normal) Range: 4.6 - 7.1 :49 HGB A1C (16204) Comments: PATIENT WAS FASTINGPERFORMED BY: MeilimeiBristol-Myers Squibb Children's HospitalRlikud7770 [facility] [id number] Hemoglobin A1c 6.1 % (Abnormal) Range: 4.8-5.6 Comments: . Pre-diabetes: 5.7 - 6.4 Diabetes: >6.4 Glycemic control for adults with diabetes: <7.0 :49 TSH (46090) Comments: PATIENT WAS FASTINGPERFORMED BY: [facility]ilimeiMemorial Medical CenterQlshbo3391 [facility] [id number] TSH 2.280 {uIU/mL} (Normal) Range: 0.450-4.500 :49 MICROALBUMIN: CREATININE RATIO Comments: PATIENT WAS FASTINGPERFORMED BY: MeilimeiBristol-Myers Squibb Children's HospitalEffbin0814 [facility] [id number] (20679) AND (21204) Microalb/Creat Ratio <3.5 {mg/g_creat} (Normal) Range: 0.0-30.0 Microalbumin, Urine <3.0 ug/mL (Normal) Creatinine, Urine 85.4 mg/dL (Normal) :49 METABOLIC PANEL, COMPREHENSIVE Comments: PATIENT WAS FASTINGPERFORMED BY: MeilimeiBristol-Myers Squibb Children's HospitalElbqeo2413 [facility] [id number] (70596) ALT (SGPT) 19 [iU]/L (Normal) Range: 0-32 AST (SGOT) 18 [iU]/L (Normal) Range: 0-40 Alkaline Phosphatase, S 86 [iU]/L (Normal) Range: 39-117 Bilirubin, Total 0.5 mg/dL (Normal) Range: 0.0-1.2 A/G Ratio 1.4 (Normal) Range: 1.1-2.5 Globulin, Total 3.1 g/dL (Normal) Range: 1.5-4.5 Albumin, Serum 4.4 g/dL (Normal) Range: 3.5-5.5 Protein, Total, Serum 7.5 g/dL (Normal) Range: 6.0-8.5 Calcium, Serum 9.5 mg/dL (Normal) Range: 8.7-10.2 Carbon Dioxide, Total 25 mmol/L (Normal) Range: 18-29 Chloride, Serum 98 mmol/L (Normal) Range: 97-106 Comments: Effective July 30, 2016 the reference interval for Chloride, Serum will be changing to: 96 - 106 Potassium, Serum 4.6 mmol/L (Normal) Range: 3.5-5.2 Sodium, Serum 139 mmol/L (Normal) Range: 136-144 Comments: Effective July 30, 2016 the reference interval for Sodium, Serum will be changing to: 134 - 144 BUN/Creatinine Ratio 21 (Normal) Range: 9-23 eGFR If Africn Am 112 mL/min/1.73 (Normal) eGFR If NonAfricn Am 97 mL/min/1.73 (Normal) Creatinine, Serum 0.66 mg/dL (Normal) Range: 0.57-1.00 BUN 14 mg/dL (Normal) Range: 6-24 Glucose, Serum 101 mg/dL (Abnormal) Range: 65-99 3-Dwy-305508:49 LIPID PANEL (60648) Comments: PATIENT WAS FASTINGPERFORMED BY: Wikinvest [facility] [id number] LDL/HDL Ratio 2.3 {ratio_units} (Normal) Range: 0.0-3.2 Comments: LDL/HDL Ratio Men Women 1/2 Avg.Risk 1.0 1.5 Av g.Risk 3.6 3.2 2X Avg.Risk 6.2 5.0 3X Avg.Risk 8.0 6.1 LDL Cholesterol Calc 132 mg/dL (Abnormal) Range: 0-99 VLDL Cholesterol Aneesh 10 mg/dL (Normal) Range: 5-40 HDL Cholesterol 58 mg/dL (Normal) Triglycerides 48 mg/dL (Normal) Range: 0-149 Cholesterol, Total 200 mg/dL (Abnormal) Range: 100-199 2-Ymd-025937:49 CBC W/AUTO DIFF WBC (53602) Comments: PATIENT WAS FASTINGPERFORMED BY: ReedsyFormerly [facility] [id number]; will review at 08/07 appt Immature Grans (Abs) 0.0 {x10E3/uL} (Normal) Range: 0.0-0.1 Immature Granulocytes 0 % (Normal) Baso (Absolute) 0.0 {x10E3/uL} (Normal) Range: 0.0-0.2 Eos (Absolute) 0.1 {x10E3/uL} (Normal) Range: 0.0-0.4 Monocytes(Absolute) 0.4 {x10E3/uL} (Normal) Range: 0.1-0.9 Lymphs (Absolute) 1.2 {x10E3/uL} (Normal) Range: 0.7-3.1 Neutrophils (Absolute) 3.2 {x10E3/uL} (Normal) Range: 1.4-7.0 Basos 0 % (Normal) Eos 2 % (Normal) Monocytes 9 % (Normal) Lymphs 24 % (Normal) Neutrophils 65 % (Normal) Platelets 214 {x10E3/uL} (Normal) Range: 150-379 RDW 14.0 % (Normal) Range: 12.3-15.4 MCHC 33.2 g/dL (Normal) Range: 31.5-35.7 MCH 29.2 pg (Normal) Range: 26.6-33.0 MCV 88 fL (Normal) Range: 79-97 Hematocrit 39.8 % (Normal) Range: 34.0-46.6 Hemoglobin 13.2 g/dL (Normal) Range: 11.1-15.9 RBC 4.52 {x10E6/uL} (Normal) Range: 3.77-5.28 WBC 4.9 {x10E3/uL} (Normal) Range: 3.4-10.8 9-Dhk-614149:18 Microscopic Examination Comments: PATIENT WAS FASTINGPERFORMED BY: [facility] Hpwomb9450 [facility] [id number] Bacteria Few (Normal) Mucus Threads Present (Normal) Epithelial Cells (non renal) 0-10 {/hpf} (Normal) Range: 0 - 10 RBC 0-2 {/hpf} (Normal) Range: 0 - 2 WBC 0-5 {/hpf} (Normal) Range: 0 - 5 32-Pxu-995128:48 Blood Glucose , Office (55616) Blood Glucose , Office 75 (Normal) :48 HgA1C , Office (36040) HgA1C , Office 6.0 % (Normal) Range: 4.6 - 7.1 :18 TSH (87720) Comments: PATIENT WAS FASTINGPERFORMED BY: [facility]University HospitalSzblol[facility] [id number] TSH 1.930 {uIU/mL} (Normal) Range: 0.450-4.500 :18 URINALYSIS, W/ MICRO (28402) Comments: PATIENT WAS FASTINGPERFORMED BY: Meilimei Vend [facility] [id number] Microscopic Examination See below: (Normal) Comments: Microscopic was indicated and was performed. Nitrite, Urine Negative (Normal) Urobilinogen,Semi-Qn 0.2 mg/dL (Normal) Range: 0.2-1.0 Bilirubin Negative (Normal) Occult Blood Negative (Normal) Ketones Negative (Normal) Glucose Negative (Normal) Protein Negative (Normal) WBC Esterase 1+ (Abnormal) Appearance Clear (Normal) Urine-Color Yellow (Normal) pH 7.5 (Normal) Range: 5.0-7.5 Specific [place] 1.023 (Normal) Range: 1.005-1.030 :18 MICROALBUMIN: CREATININE RATIO Comments: PATIENT WAS FASTINGPERFORMED BY: Meilimei Vend [facility] [id number] ([id number]) AND (42609) Microalb/Creat Ratio 4.2 {mg/g_creat} (Normal) Range: 0.0-30.0 Microalbumin, Urine 6.3 ug/mL (Normal) Creatinine, Urine 149.4 mg/dL (Normal) :18 METABOLIC PANEL, COMPREHENSIVE Comments: PATIENT WAS FASTINGPERFORMED BY: Meilimei Vend [facility] [id number] ([id number]) ALT (SGPT) 30 [iU]/L (Normal) Range: 0-32 AST (SGOT) 22 [iU]/L (Normal) Range: 0-40 Alkaline Phosphatase, S 70 [iU]/L (Normal) Range: 39-117 Bilirubin, Total 0.6 mg/dL (Normal) Range: 0.0-1.2 A/G Ratio 1.7 (Normal) Range: 1.1-2.5 Globulin, Total 2.7 g/dL (Normal) Range: 1.5-4.5 Albumin, Serum 4.5 g/dL (Normal) Range: 3.5-5.5 Protein, Total, Serum 7.2 g/dL (Normal) Range: 6.0-8.5 Calcium, Serum 9.5 mg/dL (Normal) Range: 8.7-10.2 Carbon Dioxide, Total 25 mmol/L (Normal) Range: 18-29 Chloride, Serum 97 mmol/L (Normal) Range: 97-108 Potassium, Serum 4.6 mmol/L (Normal) Range: 3.5-5.2 Sodium, Serum 138 mmol/L (Normal) Range: 134-144 BUN/Creatinine Ratio 21 (Normal) Range: 9-23 eGFR If Africn Am 118 mL/min/1.73 (Normal) eGFR If NonAfricn Am 103 mL/min/1.73 (Normal) Creatinine, Serum 0.57 mg/dL (Normal) Range: 0.57-1.00 BUN 12 mg/dL (Normal) Range: 6-24 Glucose, Serum 94 mg/dL (Normal) Range: 65-99 [id number] CBC W/AUTO DIFF WBC ([id number]) Comments: PATIENT WAS FASTINGPERFORMED BY: [facility] HospitalXbrcrd1665 [facility] [id number] Immature Grans (Abs) 0.0 {x10E3/uL} (Normal) Range: 0.0-0.1 Immature Granulocytes 0 % (Normal) Baso (Absolute) 0.0 {x10E3/uL} (Normal) Range: 0.0-0.2 Eos (Absolute) 0.1 {x10E3/uL} (Normal) Range: 0.0-0.4 Monocytes(Absolute) 0.4 {x10E3/uL} (Normal) Range: 0.1-0.9 Lymphs (Absolute) 1.6 {x10E3/uL} (Normal) Range: 0.7-3.1 Neutrophils (Absolute) 4.0 {x10E3/uL} (Normal) Range: 1.4-7.0 Basos 0 % (Normal) Eos 2 % (Normal) Monocytes 7 % (Normal) Lymphs 26 % (Normal) Neutrophils 65 % (Normal) Platelets 263 {x10E3/uL} (Normal) Range: 150-379 RDW 14.5 % (Normal) Range: 12.3-15.4 MCHC 33.3 g/dL (Normal) Range: 31.5-35.7 MCH 30.2 pg (Normal) Range: 26.6-33.0 MCV 91 fL (Normal) Range: 79-97 Hematocrit 41.8 % (Normal) Range: 34.0-46.6 Hemoglobin 13.9 g/dL (Normal) Range: 11.1-15.9 RBC 4.60 {x10E6/uL} (Normal) Range: 3.77-5.28 WBC 6.1 {x10E3/uL} (Normal) Range: 3.4-10.8 :02 TSH (00196) Comments: PATIENT WAS FASTINGPERFORMED BY: [facility] [id number] TSH 2.070 {uIU/mL} (Normal) Range: 0.450-4.500 :02 CBC W/AUTO DIFF WBC Comments: PATIENT WAS FASTINGPERFORMED BY: [address] [id number] Information: [id number] (97777) Immature Grans (Abs) 0.0 {x10E3/uL} (Normal) Range: 0.0-0.1 Immature Granulocytes 0 % (Normal) Baso (Absolute) 0.0 {x10E3/uL} (Normal) Range: 0.0-0.2 Eos (Absolute) 0.1 {x10E3/uL} (Normal) Range: 0.0-0.4 Monocytes(Absolute) 0.5 {x10E3/uL} (Normal) Range: 0.1-0.9 Lymphs (Absolute) 1.4 {x10E3/uL} (Normal) Range: 0.7-3.1 Neutrophils (Absolute) 3.2 {x10E3/uL} (Normal) Range: 1.4-7.0 Basos 0 % (Normal) Eos 1 % (Normal) Monocytes 9 % (Normal) Lymphs 28 % (Normal) Neutrophils 62 % (Normal) Platelets 246 {x10E3/uL} (Normal) Range: 150-379 RDW 14.3 % (Normal) Range: 12.3-15.4 MCHC 33.0 g/dL (Normal) Range: 31.5-35.7 MCH 29.7 pg (Normal) Range: 26.6-33.0 MCV 90 fL (Normal) Range: 79-97 Hematocrit 40.0 % (Normal) Range: 34.0-46.6 Hemoglobin 13.2 g/dL (Normal) Range: 11.1-15.9 RBC 4.44 {x10E6/uL} (Normal) Range: 3.77-5.28 WBC 5.1 {x10E3/uL} (Normal) Range: 3.4-10.8 69-Spe-069972:02 MICROALBUMIN: CREATININE RATIO Comments: PATIENT WAS FASTINGPERFORMED BY: [facility] Uvnzcp6161 [facility] [id number] ([id number]) AND (62243) Microalb/Creat Ratio 4.5 {mg/g_creat} (Normal) Range: 0.0-30.0 Microalbumin, Urine 5.7 ug/mL (Normal) Range: 0.0-17.0 Creatinine, Urine 127.2 mg/dL (Normal) Range: 15.0-278.0 59-Kat-001114:02 METABOLIC PANEL, COMPREHENSIVE Comments: PATIENT WAS FASTINGPERFORMED BY: MetaraBristol[facility] Squ[facility] Children's HospitalLsctin4816 [facility] [id number] (48023) ALT (SGPT) 20 [iU]/L (Normal) Range: 0-32 AST (SGOT) 15 [iU]/L (Normal) Range: 0-40 Alkaline Phosphatase, S 65 [iU]/L (Normal) Range: 39-117 Bilirubin, Total 0.5 mg/dL (Normal) Range: 0.0-1.2 A/G Ratio 1.7 (Normal) Range: 1.1-2.5 Globulin, Total 2.5 g/dL (Normal) Range: 1.5-4.5 Albumin, Serum 4.3 g/dL (Normal) Range: 3.5-5.5 Protein, Total, Serum 6.8 g/dL (Normal) Range: 6.0-8.5 Calcium, Serum 9.3 mg/dL (Normal) Range: 8.7-10.2 Carbon Dioxide, Total 25 mmol/L (Normal) Range: 18-29 Chloride, Serum 100 mmol/L (Normal) Range: 97-108 Potassium, Serum 4.9 mmol/L (Normal) Range: 3.5-5.2 Sodium, Serum 139 mmol/L (Normal) Range: 134-144 BUN/Creatinine Ratio 25 (Abnormal) Range: 9-23 eGFR If Africn Am 116 mL/min/1.73 (Normal) eGFR If NonAfricn Am 101 mL/min/1.73 (Normal) Creatinine, Serum 0.60 mg/dL (Normal) Range: 0.57-1.00 BUN 15 mg/dL (Normal) Range: 6-24 Glucose, Serum 86 mg/dL (Normal) Range: 65-99 17-Hzf-693550:02 LIPID PANEL (04036) Comments: PATIENT WAS FASTINGPERFORMED BY: [facility] [id number] LDL/HDL Ratio 2.1 {ratio_units} (Normal) Range: 0.0-3.2 Comments: LDL/HDL Ratio Men Women 1/2 Avg.Risk 1.0 1.5 Av g.Risk 3.6 3.2 2X Avg.Risk 6.2 5.0 3X Avg.Risk 8.0 6.1 LDL Cholesterol Calc 128 mg/dL (Abnormal) Range: 0-99 VLDL Cholesterol Aneesh 13 mg/dL (Normal) Range: 5-40 HDL Cholesterol 62 mg/dL (Normal) Comments: According to ATP-III Guidelines, HDL-C >59 mg/dL is considered anegative risk factor for CHD. Triglycerides 63 mg/dL (Normal) Range: 0-149 Cholesterol, Total 203 mg/dL (Abnormal) Range: 100-199 01-Pvn-017158:02 HGB A1C (59592) Comments: PATIENT WAS FASTINGPERFORMED BY: [facility] [place] [id number] Hemoglobin A1c 6.0 % (Abnormal) Range: 4.8-5.6 Comments: . Pre-diabetes: 5.7 - 6.4 Diabetes: >6.4 Glycemic control for adults with diabetes: <7.0 58-Nvr-188788:15 CULTURE, SPUTUM (82308) Comments: PERFORMED BY: LabCoBristol-My[facility] Squibb Children's HospitalNjtvmb0559 [facility] [id number] Information: SRC: SPUTUM Result 1 RRF (Normal) Comments: Routine respiratory jamia Lower Respiratory Culture Final report (Normal) 39-Bnz-494883:45 Rapid Flu (83265 x 2) Influenza A Ag negative (Normal) 31-Pnz-287082:50 HgA1C , Office (61085) HgA1C , Office 6.4 % (Normal) Range: 4.6 - 7.1 20-Agx-341291:50 Blood Glucose , Office (46242) Blood Glucose , Office 102 (Normal) Comments: non-fasting 5-Xuh-299481:00 Urinalysis, Office (69035) UA - LEUKOCYTE ESTERASE Negative (Normal) UA - NITRITE Negative (Normal) URINE UROBILINGN RUBEN TIMED 2 mg/dL (Normal) UA - PROTEIN Negative mg/dL (Normal) UA - PH 6.5 (Normal) UA - BLOOD non-hemolyzed trace (Normal) UA - SPECIFIC GRAVITY 1.025 (Normal) UA - KETONES Negative mg/dL (Normal) UA - BILIRUBIN Negative (Normal) UA - GLUCOSE Negative (Normal) 98-Qmw-28492:41 Microscopic Examination Comments: PATIENT WAS FASTINGPERFORMED BY: LabCoBristol-My[facility] Squ[facility] Children's HospitalCcbtvc0118 [facility] [id number] Bacteria Moderate (Abnormal) Mucus Threads Present (Normal) Epithelial Cells (non renal) >10 {/hpf} (Abnormal) Range: 0 - 10 RBC 0-2 {/hpf} (Normal) Range: 0 - 2 WBC >30 {/hpf} (Abnormal) Range: 0 - 5 :19 HgA1C , Office (06030) HgA1C , Office 6.1 % (Normal) Range: 4.6 - 7.1 :19 Blood Glucose , Office (14374) Blood Glucose , Office 98 (Normal) 84-Ayg-489357:19 HgA1C , Office (04540) HgA1C , Office 5.9 % (Normal) Range: 4.6 - 7.1 50-Noe-307243:19 Blood Glucose , Office (44068) Blood Glucose , Office 97 (Normal) 03-Wgq-130628:55 METABOLIC PANEL, COMPREHENSIVE Comments: PATIENT NOT FASTINGPERFORMED BY: Meilimei Qoenql6320 [facility] [id number] (11647) ALT (SGPT) 17 [iU]/L (Normal) Range: 0-32 AST (SGOT) 15 [iU]/L (Normal) Range: 0-40 Alkaline Phosphatase, S 87 [iU]/L (Normal) Range: 39-117 Bilirubin, Total 0.5 mg/dL (Normal) Range: 0.0-1.2 A/G Ratio 1.8 (Normal) Range: 1.1-2.5 Globulin, Total 2.8 g/dL (Normal) Range: 1.5-4.5 Albumin, Serum 4.9 g/dL (Normal) Range: 3.5-5.5 Protein, Total, Serum 7.7 g/dL (Normal) Range: 6.0-8.5 Calcium, Serum 9.9 mg/dL (Normal) Range: 8.7-10.2 Carbon Dioxide, Total 25 mmol/L (Normal) Range: 18-29 Chloride, Serum 96 mmol/L (Abnormal) Range: 97-108 Potassium, Serum 4.3 mmol/L (Normal) Range: 3.5-5.2 Sodium, Serum 140 mmol/L (Normal) Range: 134-144 BUN/Creatinine Ratio 18 (Normal) Range: 9-23 eGFR If Africn Am 113 mL/min/1.73 (Normal) eGFR If NonAfricn Am 98 mL/min/1.73 (Normal) Creatinine, Serum 0.66 mg/dL (Normal) Range: 0.57-1.00 BUN 12 mg/dL (Normal) Range: 6-24 Glucose, Serum 85 mg/dL (Normal) Range: 65-99 15-Xil-731752:55 CBC WITH MANUAL DIFF Comments: PATIENT NOT FASTINGPERFORMED BY: Meilimei Easplk1615 [facility] [facility] IncEC[facility] [id number] Information: [id number]; will review at 3-30 appt (51182) Immature Grans (Abs) 0.0 {x10E3/uL} (Normal) Range: 0.0-0.1 Immature Granulocytes 0 % (Normal) Baso (Absolute) 0.0 {x10E3/uL} (Normal) Range: 0.0-0.2 Eos (Absolute) 0.1 {x10E3/uL} (Normal) Range: 0.0-0.4 Monocytes(Absolute) 0.5 {x10E3/uL} (Normal) Range: 0.1-0.9 Lymphs (Absolute) 1.5 {x10E3/uL} (Normal) Range: 0.7-3.1 Neutrophils (Absolute) 4.3 {x10E3/uL} (Normal) Range: 1.4-7.0 Basos 0 % (Normal) Eos 1 % (Normal) Monocytes 8 % (Normal) Lymphs 23 % (Normal) Neutrophils 68 % (Normal) Platelets 281 {x10E3/uL} (Normal) Range: 150-379 RDW 14.0 % (Normal) Range: 12.3-15.4 MCHC 33.3 g/dL (Normal) Range: 31.5-35.7 MCH 29.2 pg (Normal) Range: 26.6-33.0 MCV 88 fL (Normal) Range: 79-97 Hematocrit 41.7 % (Normal) Range: 34.0-46.6 Hemoglobin 13.9 g/dL (Normal) Range: 11.1-15.9 RBC 4.76 {x10E6/uL} (Normal) Range: 3.77-5.28 WBC 6.3 {x10E3/uL} (Normal) Range: 3.4-10.8 52-Ssk-80348:41 URINALYSIS, W/ MICRO (17408) Comments: PATIENT WAS FASTINGPERFORMED BY: [facility]Co[facility] [place] 6192070 [facility] [id number] Microscopic Examination See below: (Normal) Comments: Microscopic was indicated and was performed. Nitrite, Urine Negative (Normal) Urobilinogen,Semi-Qn 0.2 mg/dL (Normal) Range: 0.0-1.9 Bilirubin Negative (Normal) Occult Blood Negative (Normal) Ketones Negative (Normal) Glucose Negative (Normal) Protein Negative (Normal) WBC Esterase 3+ (Abnormal) Appearance Clear (Normal) Urine-Color Yellow (Normal) pH 6.5 (Normal) Range: 5.0-7.5 Specific [place] 1.020 (Normal) Range: 1.005-1.030 :41 MICROALBUMIN: CREATININE RATIO Comments: PATIENT WAS FASTINGPERFORMED BY: [email or web address] [facility] HospitalMusiCaresFormerly [facility] [id number] (31284) AND (09342) Microalb/Creat Ratio 9.9 {mg/g_creat} (Normal) Range: 0.0-30.0 Microalbumin, Urine 10.2 ug/mL (Normal) Range: 0.0-17.0 Creatinine, Urine 103.0 mg/dL (Normal) Range: 15.0-278.0 :41 METABOLIC PANEL, COMPREHENSIVE Comments: PATIENT WAS FASTINGPERFORMED BY: [email or web address] VuCOMPFormerly [facility] [id number] (47661) ALT (SGPT) 33 [iU]/L (Abnormal) Range: 0-32 AST (SGOT) 25 [iU]/L (Normal) Range: 0-40 Alkaline Phosphatase, S 82 [iU]/L (Normal) Range: 39-117 Bilirubin, Total 0.4 mg/dL (Normal) Range: 0.0-1.2 A/G Ratio 1.9 (Normal) Range: 1.1-2.5 Globulin, Total 2.4 g/dL (Normal) Range: 1.5-4.5 Albumin, Serum 4.6 g/dL (Normal) Range: 3.5-5.5 Protein, Total, Serum 7.0 g/dL (Normal) Range: 6.0-8.5 Calcium, Serum 9.9 mg/dL (Normal) Range: 8.7-10.2 Carbon Dioxide, Total 27 mmol/L (Normal) Range: 18-29 Chloride, Serum 98 mmol/L (Normal) Range: 97-108 Potassium, Serum 4.4 mmol/L (Normal) Range: 3.5-5.2 Sodium, Serum 141 mmol/L (Normal) Range: 134-144 BUN/Creatinine Ratio 17 (Normal) Range: 9-23 eGFR If Africn Am 115 mL/min/1.73 (Normal) eGFR If NonAfricn Am 100 mL/min/1.73 (Normal) Creatinine, Serum 0.64 mg/dL (Normal) Range: 0.57-1.00 BUN 11 mg/dL (Normal) Range: 6-24 Glucose, Serum 96 mg/dL (Normal) Range: 65-99 :41 LIPID PANEL (77441) Comments: PATIENT WAS FASTINGPERFORMED BY: [email or web address] [facility] [id number] LDL/HDL Ratio 1.8 {ratio_units} (Normal) Range: 0.0-3.2 LDL Cholesterol Calc 115 mg/dL (Abnormal) Range: 0-99 VLDL Cholesterol Aneesh 15 mg/dL (Normal) Range: 5-40 HDL Cholesterol 63 mg/dL (Normal) Comments: According to ATP-III Guidelines, HDL-C >59 mg/dL is considered anegative risk factor for CHD. Triglycerides 77 mg/dL (Normal) Range: 0-149 Cholesterol, Total 193 mg/dL (Normal) Range: 100-199 :41 CBC WITH MANUAL DIFF Comments: PATIENT WAS FASTINGPERFORMED BY: [email or web address] [facility] [id number] Information: [id number] (53251) Immature Grans (Abs) 0.0 {x10E3/uL} (Normal) Range: 0.0-0.1 Immature Granulocytes 0 % (Normal) Baso (Absolute) 0.0 {x10E3/uL} (Normal) Range: 0.0-0.2 Eos (Absolute) 0.1 {x10E3/uL} (Normal) Range: 0.0-0.4 Monocytes(Absolute) 0.5 {x10E3/uL} (Normal) Range: 0.1-0.9 Lymphs (Absolute) 1.3 {x10E3/uL} (Normal) Range: 0.7-3.1 Neutrophils (Absolute) 5.1 {x10E3/uL} (Normal) Range: 1.4-7.0 Basos 0 % (Normal) Eos 1 % (Normal) Monocytes 7 % (Normal) Lymphs 19 % (Normal) Neutrophils 73 % (Normal) Platelets 237 {x10E3/uL} (Normal) Range: 150-379 RDW 14.4 % (Normal) Range: 12.3-15.4 MCHC 33.2 g/dL (Normal) Range: 31.5-35.7 MCH 29.1 pg (Normal) Range: 26.6-33.0 MCV 88 fL (Normal) Range: 79-97 Hematocrit 40.4 % (Normal) Range: 34.0-46.6 Hemoglobin 13.4 g/dL (Normal) Range: 11.1-15.9 RBC 4.61 {x10E6/uL} (Normal) Range: 3.77-5.28 WBC 7.1 {x10E3/uL} (Normal) Range: 3.4-10.8 :41 TSH (78981) Comments: PATIENT WAS FASTINGPERFORMED BY: MeilimeiBristol-Myers Squibb Children's HospitalNxjtlk0399 [facility] [id number] TSH 2.910 {uIU/mL} (Normal) Range: 0.450-4.500 72-Sut-248268:29 HEMOGLOBIN GLYCLATED (HGB Comments: PATIENT NOT FASTINGPERFORMED BY: MeilimeiBristol-Myers Squibb Children's HospitalHixixm1675 [facility] [id number] Information: [id number] A1C) (50422) Hemoglobin A1c 6.1 % (Abnormal) Range: 4.8-5.6 Comments: . Increased risk for diabetes: 5.7 - 6.4 Diabetes: >6.4 Glycemic control for adults with diabetes: <7.0 :48 HgA1C , Office (98858) HgA1C , Office 9.0 % (Abnormal) Range: 4.6 - 7.1 :48 Blood Glucose , Office (84460) Blood Glucose , Office 125 (Normal) :08 HgA1C , Office (65754) HgA1C , Office 5.8 % (Normal) Range: 4.6 - 7.1 :08 Blood Glucose , Office (04194) Blood Glucose , Office 88 (Normal) 29-Kdi-270374:26 Rapid Flu (44095 x 2) Influenza A Ag negative A and B (Normal) :01 HgA1C , Office (33189) HgA1C , Office 6.0 % (Normal) Range: 4.6 - 7.1 : Blood Glucose , Office (51823) Blood Glucose , Office 79 (Normal) : HgA1C , Office (71027) HgA1C , Office 6.3 % (Normal) Range: 4.6 - 7.1 :00 Blood Glucose , Office (22171) Blood Glucose , Office 99 (Normal) :46 Microscopic Examination Comments: PATIENT WAS FASTINGPERFORMED BY: Wallept [facility] [id number] Bacteria None seen (Normal) Mucus Threads Present (Normal) Epithelial Cells (non renal) 0-10 {/hpf} (Normal) Range: 0 - 10 RBC 0-3 {/hpf} (Normal) Range: 0 - 3 WBC 6-10 {/hpf} (Abnormal) Range: 0 - 5 :46 TSH (87622) Comments: PATIENT WAS FASTINGPERFORMED BY: [email or web address] [facility] [id number] TSH 2.400 {uIU/mL} (Normal) Range: 0.450-4.500 :46 URINALYSIS, W/ MICRO (69975) Comments: PATIENT WAS FASTINGPERFORMED BY: [facility] [id number] Microscopic Examination See below: (Normal) Nitrite, Urine Negative (Normal) Urobilinogen,Semi-Qn 0.2 mg/dL (Normal) Range: 0.0-1.9 Bilirubin Negative (Normal) Occult Blood Negative (Normal) Ketones Negative (Normal) Glucose Negative (Normal) Protein Trace (Normal) WBC Esterase 2+ (Abnormal) Appearance Clear (Normal) Urine-Color Yellow (Normal) pH 8.0 (Abnormal) Range: 5.0-7.5 Specific [place] 1.026 (Normal) Range: 1.005-1.030 :46 MICROALBUMIN: CREATININE RATIO Comments: PATIENT WAS FASTINGPERFORMED BY: Meilimei Xyezaq7619 [facility] [id number] (38851) AND (30646) Microalb/Creat Ratio 2.4 {mg/g_creat} (Normal) Range: 0.0-30.0 Microalbumin, Urine 3.7 ug/mL (Normal) Range: 0.0-17.0 Creatinine, Urine 151.9 mg/dL (Normal) Range: 15.0-278.0 :46 METABOLIC PANEL, COMPREHENSIVE Comments: PATIENT WAS FASTINGPERFORMED BY: [employer]6370 [facility] [id number] (87921) ALT (SGPT) 29 [iU]/L (Normal) Range: 0-32 AST (SGOT) 25 [iU]/L (Normal) Range: 0-40 Alkaline Phosphatase, S 72 [iU]/L (Normal) Range: 25-150 Bilirubin, Total 0.4 mg/dL (Normal) Range: 0.0-1.2 A/G Ratio 1.6 (Normal) Range: 1.1-2.5 Globulin, Total 2.8 g/dL (Normal) Range: 1.5-4.5 Albumin, Serum 4.5 g/dL (Normal) Range: 3.5-5.5 Protein, Total, Serum 7.3 g/dL (Normal) Range: 6.0-8.5 Calcium, Serum 9.5 mg/dL (Normal) Range: 8.7-10.2 Carbon Dioxide, Total 25 mmol/L (Normal) Range: 20-32 Chloride, Serum 102 mmol/L (Normal) Range: 97-108 Potassium, Serum 4.2 mmol/L (Normal) Range: 3.5-5.2 Sodium, Serum 142 mmol/L (Normal) Range: 134-144 BUN/Creatinine Ratio 25 (Abnormal) Range: 9-23 eGFR If Africn Am 117 mL/min/1.73 (Normal) eGFR If NonAfricn Am 101 mL/min/1.73 (Normal) Creatinine, Serum 0.63 mg/dL (Normal) Range: 0.57-1.00 BUN 16 mg/dL (Normal) Range: 6-24 Glucose, Serum 108 mg/dL (Abnormal) Range: 65-99 :46 LIPID PANEL (81285) Comments: PATIENT WAS FASTINGPERFORMED BY: MeilimeiBristol-Myers Squibb Children's HospitalRkxloh6206 [facility] [id number] LDL/HDL Ratio 1.8 {ratio_units} (Normal) Range: 0.0-3.2 LDL Cholesterol Calc 114 mg/dL (Abnormal) Range: 0-99 VLDL Cholesterol Aneesh 18 mg/dL (Normal) Range: 5-40 HDL Cholesterol 65 mg/dL (Normal) Comments: According to ATP-III Guidelines, HDL-C >59 mg/dL is considered anegative risk factor for CHD. Triglycerides 92 mg/dL (Normal) Range: 0-149 Cholesterol, Total 197 mg/dL (Normal) Range: 100-199 :46 CBC WITH MANUAL DIFF Comments: PATIENT WAS FASTINGPERFORMED BY: [employer]6370 [facility] [id number] Information: SRC: URINE (94702) Immature Grans (Abs) 0.0 {x10E3/uL} (Normal) Range: 0.0-0.1 Immature Granulocytes 0 % (Normal) Range: 0-2 Baso (Absolute) 0.0 {x10E3/uL} (Normal) Range: 0.0-0.2 Eos (Absolute) 0.1 {x10E3/uL} (Normal) Range: 0.0-0.4 Lymphs (Absolute) 1.2 {x10E3/uL} (Normal) Range: 0.7-4.5 Monocytes(Absolute) 0.3 {x10E3/uL} (Normal) Range: 0.1-1.0 Neutrophils (Absolute) 3.2 {x10E3/uL} (Normal) Range: 1.8-7.8 Basos 0 % (Normal) Range: 0-3 Eos 2 % (Normal) Range: 0-7 Monocytes 7 % (Normal) Range: 4-13 Lymphs 24 % (Normal) Range: 14-46 Neutrophils 67 % (Normal) Range: 40-74 Platelets 239 {x10E3/uL} (Normal) Range: 140-415 RDW 14.4 % (Normal) Range: 12.3-15.4 MCHC 33.3 g/dL (Normal) Range: 31.5-35.7 MCH 29.5 pg (Normal) Range: 26.6-33.0 MCV 88 fL (Normal) Range: 79-97 Hematocrit 39.0 % (Normal) Range: 34.0-46.6 Hemoglobin 13.0 g/dL (Normal) Range: 11.1-15.9 RBC 4.41 {x10E6/uL} (Normal) Range: 3.77-5.28 WBC 4.8 {x10E3/uL} (Normal) Range: 4.0-10.5 :47 CCP ANTIBODY (49465) Comments: PATIENT WAS FASTINGPERFORMED BY: Wallept [facility] [id number] BY: [address] [id number] CCP Antibodies IgG/IgA 22 {units} (Abnormal) Range: 0-19 Comments: Negative <20 Weak positive 20 - 39 Moderate positive 40 - 59 Strong positive >59 :47 SED RATE ERYTHROCYTE Comments: PATIENT WAS FASTINGPERFORMED BY: Wallept [facility] [id number] BY: [employer] [id number] (29226) Sedimentation Rate-Westergren 3 mm/h (Normal) Range: 0-40 :47 C-REACTIVE PROTEIN (69047) Comments: PATIENT WAS FASTINGPERFORMED BY: Wallept [facility] [id number] BY: [employer] [id number] C-Reactive Protein, Quant 6.5 mg/L (Abnormal) Range: 0.0-4.9 :47 RHEUMATOID FACTOR-QUANT Comments: PATIENT WAS FASTINGPERFORMED BY: [email or web address] [facility] [id number] BY: [address] [id number] (34987) RA Latex Turbid. 10.2 {IU/mL} (Normal) Range: 0.0-13.9 :47 YAMIL (ANTINUCLEAR ANTIBODY) Comments: PATIENT WAS FASTINGPERFORMED BY: [facility]win6370 [facility] [id number] BY: Lab[address] [id number] (44328) YAMIL Direct Negative (Normal) 64-Uxl-358395:35 HgA1C , Office (79038) HgA1C , Office 6.8 % (Normal) Range: 4.6 - 7.1 :35 Blood Glucose , Office (02015) Blood Glucose , Office 89 (Normal) Comments: PATIENT DID ON HER OWN MACHINE :56 HgA1C , Office (79890) HgA1C , Office 6.0 % (Normal) Range: 4.6 - 7.1 :56 Blood Glucose , Office (82931) Blood Glucose , Office 100 (Normal) 54-Dhy-249344:45 Microscopic Examination Comments: PATIENT WAS FASTINGPERFORMED BY: LabDenise [place] 0319170 [facility] [id number] Bacteria Many (Abnormal) Mucus Threads Present (Normal) Epithelial Cells (non renal) >10 {/hpf} (Abnormal) Range: 0 - 10 RBC 0-3 {/hpf} (Normal) Range: 0 - 3 WBC 11-30 {/hpf} (Abnormal) Range: 0 - 5 :02 HgA1C , Office (32236) HgA1C , Office 6.1 % (Normal) Range: 4.6 - 7.1 :02 Blood Glucose , Office (10027) Blood Glucose , Office 96 (Normal) :41 CBC With Differential/Platelet Comments: PATIENT WAS FASTINGPERFORMED BY: [facility]6370 [facility] [id number] Immature Grans (Abs) 0.0 {x10E3/uL} (Normal) Range: 0.0-0.1 Immature Granulocytes 0 % (Normal) Range: 0-2 Baso (Absolute) 0.0 {x10E3/uL} (Normal) Range: 0.0-0.2 Eos (Absolute) 0.1 {x10E3/uL} (Normal) Range: 0.0-0.4 Monocytes(Absolute) 0.5 {x10E3/uL} (Normal) Range: 0.1-1.0 Lymphs (Absolute) 1.4 {x10E3/uL} (Normal) Range: 0.7-4.5 Neutrophils (Absolute) 3.5 {x10E3/uL} (Normal) Range: 1.8-7.8 Basos 0 % (Normal) Range: 0-3 Eos 2 % (Normal) Range: 0-7 Monocytes 8 % (Normal) Range: 4-13 Lymphs 26 % (Normal) Range: 14-46 Neutrophils 64 % (Normal) Range: 40-74 Platelets 241 {x10E3/uL} (Normal) Range: 140-415 RDW 14.0 % (Normal) Range: 11.7-15.0 MCHC 33.2 g/dL (Normal) Range: 32.0-36.0 MCH 29.5 pg (Normal) Range: 27.0-34.0 MCV 89 fL (Normal) Range: 80-98 Hematocrit 38.6 % (Normal) Range: 34.0-44.0 Hemoglobin 12.8 g/dL (Normal) Range: 11.5-15.0 RBC 4.34 {x10E6/uL} (Normal) Range: 3.80-5.10 WBC 5.5 {x10E3/uL} (Normal) Range: 4.0-10.5 91-Umh-348368:41 Comp. Metabolic Panel (14) Comments: PATIENT WAS FASTINGPERFORMED BY: LabCoBristol-Myers Squibb Children's HospitalVzkobo8531 [facility] [id number] ALT (SGPT) 22 [iU]/L (Normal) Range: 0-40 AST (SGOT) 21 [iU]/L (Normal) Range: 0-40 Alkaline Phosphatase, S 74 [iU]/L (Normal) Range: 25-150 Bilirubin, Total 0.7 mg/dL (Normal) Range: 0.0-1.2 A/G Ratio 1.6 (Normal) Range: 1.1-2.5 Globulin, Total 2.8 g/dL (Normal) Range: 1.5-4.5 Albumin, Serum 4.4 g/dL (Normal) Range: 3.5-5.5 Protein, Total, Serum 7.2 g/dL (Normal) Range: 6.0-8.5 Calcium, Serum 9.7 mg/dL (Normal) Range: 8.7-10.2 Carbon Dioxide, Total 24 mmol/L (Normal) Range: 20-32 Chloride, Serum 99 mmol/L (Normal) Range: 97-108 Potassium, Serum 4.4 mmol/L (Normal) Range: 3.5-5.2 Sodium, Serum 138 mmol/L (Normal) Range: 134-144 BUN/Creatinine Ratio 23 (Normal) Range: 9-23 eGFR If Africn Am 117 mL/min/1.73 (Normal) Comments: Note: A persistent eGFR <60 mL/min/1.73 m2 (3 months or more) mayindicate chronic kidney disease. An eGFR >59 mL/min/1.73 m2 with anelevated urine protein also may indicate chronic kidney disease.Calculated using CKD-EPI formula. eGFR If NonAfricn Am 101 mL/min/1.73 (Normal) Creatinine, Serum 0.64 mg/dL (Normal) Range: 0.57-1.00 BUN 15 mg/dL (Normal) Range: 6-24 Glucose, Serum 92 mg/dL (Normal) Range: 65-99 [id number] Lipid Panel With LDL/HDL Comments: PATIENT WAS FASTINGPERFORMED BY: [facility] [id number] [facility] [id number] Ratio LDL/HDL Ratio 1.7 {ratio_units} (Normal) Range: 0.0-3.2 LDL Cholesterol Calc 118 mg/dL (Abnormal) Range: 0-99 VLDL Cholesterol Aneesh 13 mg/dL (Normal) Range: 5-40 HDL Cholesterol 71 mg/dL (Normal) Comments: According to ATP-III Guidelines, HDL-C >59 mg/dL is considered anegative risk factor for CHD. Triglycerides 65 mg/dL (Normal) Range: 0-149 Cholesterol, Total 202 mg/dL (Abnormal) Range: 100-199 [id number] Microalb/Creat Ratio, Randm Ur Comments: PATIENT WAS FASTINGPERFORMED BY: [id number] [id number] Microalb/Creat Ratio 5.5 {mg/g_creat} (Normal) Range: 0.0-30.0 Microalbumin, Urine 9.9 ug/mL (Normal) Range: 0.0-17.0 Creatinine, Urine 181.2 mg/dL (Normal) Range: 15.0-278.0 [id number] Microscopic Examination Comments: PATIENT WAS FASTINGPERFORMED BY: [facility]6[address] [facility] [id number] Bacteria Few (Normal) Mucus Threads Present (Normal) Epithelial Cells (non >10 {/hpf} Range: 0 - 10 renal) (Abnormal) RBC 0-3 {/hpf} (Normal) Range: 0 - 3 WBC 0-5 {/hpf} (Normal) Range: 0 - 5 TSH 2.900 {uIU/mL} Comments: PATIENT WAS FASTINGPERFORMED BY: [address] [id number] 1:41 (Normal) Range: 0.450-4.500 :41 Urinalysis, Complete Comments: PATIENT WAS FASTINGPERFORMED BY: [address] [id number] Microscopic Examination See below: (Normal) Nitrite, Urine Negative (Normal) Urobilinogen,Semi-Qn 0.2 mg/dL (Normal) Range: 0.0-1.9 Bilirubin Negative (Normal) Occult Blood Negative (Normal) Ketones Negative (Normal) Glucose Negative (Normal) Protein Negative (Normal) WBC Esterase 1+ (Abnormal) Appearance Clear (Normal) Urine-Color Yellow (Normal) pH 6.5 (Normal) Range: 5.0-7.5 Specific [place] 1.024 (Normal) Range: 1.005-1.030 [id number] URINALYSIS, W/ MICRO ([id number]) Comments: PATIENT WAS FASTINGPERFORMED BY: [facility]6[address] [facility] [id number] Microscopic Examination See below: (Normal) Nitrite, Urine Negative (Normal) Urobilinogen,Semi-Qn 0.2 mg/dL (Normal) Range: 0.0-1.9 Bilirubin Negative (Normal) Ketones Negative (Normal) Occult Blood Negative (Normal) Glucose Negative (Normal) Protein 1+ (Abnormal) WBC Esterase 1+ (Abnormal) Appearance Turbid (Abnormal) Urine-Color Yellow (Normal) pH 8.5 (Abnormal) Range: 5.0-7.5 Specific [place] 1.027 (Normal) Range: 1.005-1.030 :45 TSH (47214) Comments: PATIENT WAS FASTINGPERFORMED BY: [facility] [facility] [id number] TSH 1.890 {uIU/mL} (Normal) Range: 0.450-4.500 :45 MICROALBUMIN: CREATININE RATIO Comments: PATIENT WAS FASTINGPERFORMED BY: [employer]tre[employer] Manufacturing CorporationMymichigan [facility] Gladwin6[address] [facility] [id number] (30203) AND (04308) Microalb/Creat Ratio 9.5 {mg/g_creat} (Normal) Range: 0.0-30.0 Creatinine, Urine 186.1 mg/dL (Normal) Range: 15.0-278.0 Microalbumin, Urine 17.7 ug/mL (Abnormal) Range: 0.0-17.0 :45 METABOLIC PANEL, COMPREHENSIVE Comments: PATIENT WAS FASTINGPERFORMED BY: [facility] [facility] [id number] ([id number]) ALT (SGPT) 21 [iU]/L (Normal) Range: 0-40 AST (SGOT) 17 [iU]/L (Normal) Range: 0-40 Alkaline Phosphatase, S 73 [iU]/L (Normal) Range: 25-150 Bilirubin, Total 0.5 mg/dL (Normal) Range: 0.0-1.2 A/G Ratio 1.6 (Normal) Range: 1.1-2.5 Globulin, Total 2.7 g/dL (Normal) Range: 1.5-4.5 Albumin, Serum 4.2 g/dL (Normal) Range: 3.5-5.5 Protein, Total, Serum 6.9 g/dL (Normal) Range: 6.0-8.5 Calcium, Serum 9.4 mg/dL (Normal) Range: 8.7-10.2 Carbon Dioxide, Total 25 mmol/L (Normal) Range: 20-32 Chloride, Serum 102 mmol/L (Normal) Range: 97-108 Potassium, Serum 4.9 mmol/L (Normal) Range: 3.5-5.2 Sodium, Serum 139 mmol/L (Normal) Range: 134-144 BUN/Creatinine Ratio 24 (Abnormal) Range: 9-23 eGFR If Africn Am 121 mL/min/1.73 (Normal) eGFR If NonAfricn Am 105 mL/min/1.73 (Normal) Creatinine, Serum 0.58 mg/dL (Normal) Range: 0.57-1.00 BUN 14 mg/dL (Normal) Range: 6-24 Glucose, Serum 98 mg/dL (Normal) Range: 65-99 56-Xtt-305107:45 LIPID PANEL (29766) Comments: PATIENT WAS FASTINGPERFORMED BY: [employer]out6370 [facility]Former[facility] [id number] LDL/HDL Ratio 1.6 {ratio_units} (Normal) Range: 0.0-3.2 LDL Cholesterol Calc 101 mg/dL (Abnormal) Range: 0-99 Comments: Please note reference interval change HDL Cholesterol 62 mg/dL (Normal) Comments: According to ATP-III Guidelines, HDL-C >59 mg/dL is considered anegative risk factor for CHD. VLDL Cholesterol Aneesh 18 mg/dL (Normal) Range: 5-40 Triglycerides 92 mg/dL (Normal) Range: 0-149 Comments: Please note reference interval change Cholesterol, Total 181 mg/dL (Normal) Range: 100-199 Comments: Please note reference interval change :45 CBC WITH MANUAL DIFF Comments: PATIENT WAS FASTINGPERFORMED BY: [email or web address] [employer] Fuel[employer] Energy IncECU Health [facility] [id number] Information: [id number] (31144) Immature Grans (Abs) 0.0 {x10E3/uL} (Normal) Range: 0.0-0.1 Immature Granulocytes 0 % (Normal) Range: 0-2 Baso (Absolute) 0.0 {x10E3/uL} (Normal) Range: 0.0-0.2 Eos (Absolute) 0.1 {x10E3/uL} (Normal) Range: 0.0-0.4 Monocytes(Absolute) 0.4 {x10E3/uL} (Normal) Range: 0.1-1.0 Lymphs (Absolute) 1.4 {x10E3/uL} (Normal) Range: 0.7-4.5 Neutrophils (Absolute) 3.8 {x10E3/uL} (Normal) Range: 1.8-7.8 Basos 0 % (Normal) Range: 0-3 Eos 2 % (Normal) Range: 0-7 Monocytes 7 % (Normal) Range: 4-13 Lymphs 24 % (Normal) Range: 14-46 Neutrophils 67 % (Normal) Range: 40-74 Platelets 244 {x10E3/uL} (Normal) Range: 140-415 RDW 14.6 % (Normal) Range: 12.3-15.4 MCHC 32.8 g/dL (Normal) Range: 31.5-35.7 MCH 29.7 pg (Normal) Range: 26.6-33.0 MCV 90 fL (Normal) Range: 79-97 Hematocrit 40.5 % (Normal) Range: 34.0-46.6 Hemoglobin 13.3 g/dL (Normal) Range: 11.1-15.9 RBC 4.48 {x10E6/uL} (Normal) Range: 3.77-5.28 WBC 5.8 {x10E3/uL} (Normal) Range: 4.0-10.5 :09 HgA1C , Office (86006) HgA1C , Office 6.0 % (Normal) Range: 4.6 - 7.1 :09 Blood Glucose , Office (59134) Blood Glucose , Office 79 (Normal) :33 Blood Glucose , Office (51918) Blood Glucose , Office 98 (Normal) :33 HgA1C , Office (81729) HgA1C , Office 6.0 % (Normal) Range: 4.6 - 7.1 :39 CBC & PLATELETS (AUTO) Comments: PATIENT WAS FASTINGPERFORMED BY: LabCo53 Snyder StreetDublin [place] [id number] (08383) Platelets 242 {x10E3/uL} (Normal) Range: 140-415 RDW 13.8 % (Normal) Range: 11.7-15.0 MCHC 33.2 g/dL (Normal) Range: 32.0-36.0 MCH 29.9 pg (Normal) Range: 27.0-34.0 Hematocrit 40.7 % (Normal) Range: 34.0-44.0 MCV 90 fL (Normal) Range: 80-98 Hemoglobin 13.5 g/dL (Normal) Range: 11.5-15.0 RBC 4.51 {x10E6/uL} (Normal) Range: 3.80-5.10 WBC 4.8 {x10E3/uL} (Normal) Range: 4.0-10.5 50-Nus-235761:39 METABOLIC PANEL, Comments: PATIENT WAS FASTINGPERFORMED BY: ADI LabMym[facility] Gladwin6[address] [facility] [id number] Information: [id number] [facility] (58725) ALT (SGPT) 20 [iU]/L (Normal) Range: 0-40 AST (SGOT) 18 [iU]/L (Normal) Range: 0-40 Alkaline Phosphatase, S 71 [iU]/L (Normal) Range: 25-150 Bilirubin, Total 0.3 mg/dL (Normal) Range: 0.0-1.2 A/G Ratio 1.7 (Normal) Range: 1.1-2.5 Globulin, Total 2.6 g/dL (Normal) Range: 1.5-4.5 Albumin, Serum 4.3 g/dL (Normal) Range: 3.5-5.5 Protein, Total, Serum 6.9 g/dL (Normal) Range: 6.0-8.5 Calcium, Serum 9.2 mg/dL (Normal) Range: 8.7-10.2 Carbon Dioxide, Total 26 mmol/L (Normal) Range: 20-32 Chloride, Serum 102 mmol/L (Normal) Range: 97-108 Potassium, Serum 4.7 mmol/L (Normal) Range: 3.5-5.2 Sodium, Serum 139 mmol/L (Normal) Range: 135-145 BUN/Creatinine Ratio 20 (Normal) Range: 9-23 eGFR If Africn Am 117 mL/min/1.73 (Normal) Comments: Note: A persistent eGFR <60 mL/min/1.73 m2 (3 months or more) mayindicate chronic kidney disease. An eGFR >59 mL/min/1.73 m2 with anelevated urine protein also may indicate chronic kidney disease.Calculated using CKD-EPI formula. eGFR If NonAfricn Am 101 mL/min/1.73 (Normal) Creatinine, Serum 0.64 mg/dL (Normal) Range: 0.57-1.00 BUN 13 mg/dL (Normal) Range: 6-24 Glucose, Serum 94 mg/dL (Normal) Range: 65-99 :39 TSH (THYROID STIMULATING Comments: PATIENT WAS FASTINGPERFORMED BY: [facility]gencourt BioscienceECU [facility] [id number] HORMONE) (07185) TSH 2.830 {uIU/mL} (Normal) Range: 0.450-4.500 :39 MICROALBUMIN URINE QUANT Comments: PATIENT WAS FASTINGPERFORMED BY: [facility] [id number] (69509) Creatinine, Urine 107.7 mg/dL (Normal) Range: 15.0-278.0 Microalb/Creat Ratio 4.0 {mg/g_creat} (Normal) Range: 0.0-30.0 Microalbumin, Urine 4.3 ug/mL (Normal) Range: 0.0-17.0 :39 LIPID PANEL (15478) Comments: PATIENT WAS FASTINGPERFORMED BY: [email or web address] [employer] Fuel[employer] Energy IncECU [facility] [id number]; appt 06/25/11 LDL/HDL Ratio 1.9 {ratio_units} (Normal) Range: 0.0-3.2 LDL Cholesterol Calc 108 mg/dL (Abnormal) Range: 0-99 VLDL Cholesterol Aneesh 15 mg/dL (Normal) Range: 5-40 HDL Cholesterol 56 mg/dL (Normal) Comments: According to ATP-III Guidelines, HDL-C >59 mg/dL is considered anegative risk factor for CHD. Triglycerides 76 mg/dL (Normal) Range: 0-149 Cholesterol, Total 179 mg/dL (Normal) Range: 100-199 45-Alr-434763:03 HEMOGLOBIN GLYCLATED (HGB Comments: PATIENT NOT FASTINGPERFORMED BY: MeilimeiBristol-Myers Squibb Children's HospitalWumvst7654 [facility] [id number] Information: [id number] A1C) (41024) Hemoglobin A1c 6.0 % (Abnormal) Range: 4.8-5.6 Comments: Increased risk for diabetes: 5.7 - 6.4 Diabetes: >6.4 Glycemic control for adults with diabetes: <7.0 00-Lhg-582725:42 Blood Glucose , Office (53719) Blood Glucose , Office 120 (Normal) Comments: patient reported. Showed me on her meter and declined to have done in office today. 49-Ucv-035533:32 Microscopic Examination Comments: PATIENT WAS FASTINGPERFORMED BY: MeilimeiBristol-Myers Squibb Children's HospitalKknqrs8333 [facility] [id number] Bacteria Moderate (Abnormal) Mucus Threads Present (Normal) Epithelial Cells (non renal) 0-10 {/hpf} (Normal) Range: 0 - 10 RBC 0-3 {/hpf} (Normal) Range: 0 - 3 WBC 0-5 {/hpf} (Normal) Range: 0 - 5 64-Hpu-674358:32 URINALYSIS, W/ MICRO (91154) Comments: PATIENT WAS FASTINGPERFORMED BY: MeilimeiBristol-Myers Squibb Children's HospitalZnlsmy0806 [facility] [id number] Microscopic Examination See below: (Normal) Bilirubin Negative (Normal) Microscopic Examination MICRON (Normal) Comments: Microscopic follows if indicated. Nitrite, Urine Negative (Normal) Urobilinogen,Semi-Qn 0.2 mg/dL (Normal) Range: 0.0-1.9 Glucose Negative (Normal) Ketones Negative (Normal) Occult Blood Negative (Normal) Appearance Clear (Normal) Protein Negative (Normal) WBC Esterase Negative (Normal) pH 7.0 (Normal) Range: 5.0-7.5 Urine-Color Yellow (Normal) Specific [place] 1.020 (Normal) Range: 1.005-1.030 :32 METABOLIC PANEL, COMPREHENSIVE Comments: PATIENT WAS FASTINGPERFORMED BY: LabCoBristol-Myers Squibb Children's HospitalYmjisb2424 [facility] [id number] (88072) ALT (SGPT) 18 [iU]/L (Normal) Range: 0-40 AST (SGOT) 18 [iU]/L (Normal) Range: 0-40 A/G Ratio 1.5 (Normal) Range: 1.1-2.5 Alkaline Phosphatase, S 74 [iU]/L (Normal) Range: 25-150 Bilirubin, Total 0.6 mg/dL (Normal) Range: 0.0-1.2 Albumin, Serum 4.2 g/dL (Normal) Range: 3.5-5.5 Globulin, Total 2.8 g/dL (Normal) Range: 1.5-4.5 Calcium, Serum 9.2 mg/dL (Normal) Range: 8.7-10.2 Carbon Dioxide, Total 25 mmol/L (Normal) Range: 20-32 Protein, Total, Serum 7.0 g/dL (Normal) Range: 6.0-8.5 Chloride, Serum 101 mmol/L (Normal) Range: 97-108 Potassium, Serum 4.4 mmol/L (Normal) Range: 3.5-5.2 Sodium, Serum 137 mmol/L (Normal) Range: 135-145 BUN/Creatinine Ratio 21 (Normal) Range: 9-23 eGFR AfricanAmerican >59 mL/min/1.73 Comments: Note: Persistent reduction for 3 months or more in an eGFR<60 mL/min/1.73 m2 defines CKD. Patients with eGFR values>/=60 mL/min/1.73 m2 may also have CKD if evidence of persistentproteinuria is (Normal) present. Additional information may be found [email or web address]. BUN 13 mg/dL (Normal) Range: 6-24 Creatinine, Serum 0.61 mg/dL (Normal) Range: 0.57-1.00 eGFR >59 mL/min/1.73 (Normal) Glucose, Serum 90 mg/dL (Normal) Range: 65-99 42-Swh-517248:32 CBC WITH MANUAL DIFF Comments: PATIENT WAS FASTINGPERFORMED BY: LabCoBristol-Myers Squibb Children's HospitalXsvbxg7176 [facility] [id number] Information: [id number] (12854) Immature Grans (Abs) 0.0 {x10E3/uL} (Normal) Range: 0.0-0.1 Immature Granulocytes 0 % (Normal) Range: 0-1 Baso (Absolute) 0.0 {x10E3/uL} (Normal) Range: 0.0-0.2 Eos (Absolute) 0.1 {x10E3/uL} (Normal) Range: 0.0-0.4 Monocytes(Absolute) 0.4 {x10E3/uL} (Normal) Range: 0.1-1.0 Lymphs (Absolute) 1.5 {x10E3/uL} (Normal) Range: 0.7-4.5 Neutrophils (Absolute) 3.0 {x10E3/uL} (Normal) Range: 1.8-7.8 Basos 0 % (Normal) Range: 0-3 Eos 2 % (Normal) Range: 0-7 Monocytes 9 % (Normal) Range: 4-13 Lymphs 30 % (Normal) Range: 14-46 Neutrophils 59 % (Normal) Range: 40-74 MCHC 33.5 g/dL (Normal) Range: 32.0-36.0 Platelets 231 {x10E3/uL} (Normal) Range: 140-415 RDW 14.8 % (Normal) Range: 11.7-15.0 MCH 30.3 pg (Normal) Range: 27.0-34.0 MCV 91 fL (Normal) Range: 80-98 Hematocrit 37.9 % (Normal) Range: 34.0-44.0 Hemoglobin 12.7 g/dL (Normal) Range: 11.5-15.0 RBC 4.19 {x10E6/uL} (Normal) Range: 3.80-5.10 WBC 5.0 {x10E3/uL} (Normal) Range: 4.0-10.5 32-Qav-085891:32 TSH (38569) Comments: PATIENT WAS FASTINGPERFORMED BY: Meilimei Jhdxpw7426 [facility] [id number] TSH 3.890 {uIU/mL} (Normal) Range: 0.450-4.500 90-Oyw-461786:32 MICROALBUMIN: CREATININE RATIO Comments: PATIENT WAS FASTINGPERFORMED BY: Meilimei Vend [facility] [id number] (07104) AND (42985) Microalb/Creat Ratio 2.7 {mg/g_creat} (Normal) Range: 0.0-30.0 Microalbumin, Urine 3.2 ug/mL (Normal) Range: 0.0-17.0 Creatinine, Urine 117.9 mg/dL (Normal) Range: 15.0-278.0 84-Zgj-341954:32 LIPID PANEL (33989) Comments: PATIENT WAS FASTINGPERFORMED BY: [facility] Mzguvz3198 [facility] [id number] LDL/HDL Ratio 1.8 {ratio_units} (Normal) Range: 0.0-3.2 LDL Cholesterol Calc 115 mg/dL (Abnormal) Range: 0-99 VLDL Cholesterol Aneesh 16 mg/dL (Normal) Range: 5-40 HDL Cholesterol 64 mg/dL (Normal) Comments: According to ATP-III Guidelines, HDL-C >59 mg/dL is considered anegative risk factor for CHD. Triglycerides 79 mg/dL (Normal) Range: 0-149 Cholesterol, Total 195 mg/dL (Normal) Range: 100-199 90-Lai-237678:29 PELVIC (NON ) Radiology See Note Comments: ADDENDUM COMPARISON:01/18/2005. The fibroid has increased in size compared to the prior study. CLINICAL:D Report (Normal) ysfunctional uterine bleeding PELVIC ULTRASOUND - COMPLETE TECHNIQUE:Transabdominal and Transvaginal COMPARISON:None. FINDINGS:Normal urinary bladder contour, without focal or diffuse wall thickening.Th ere are no bladder calculi or intracystic masses. Normal uterine size, measuring 9.8 cm in maximum craniocaudal dimension.There is an intramural fibroid in the anterior uterine corpus, measuring2.3 x 1. 5 x 2.5 cm.. The endometrial stripe is not well seen. Normal right ovary measuring 3 x 2.1 x 1.5 cm. There are no cystic orsolid adnexal masses. Normal left ovary measuring 2.3 x 1.5 x 1.3 cm. There i s a 1 cm cyst inthe left ovary . There is no free fluid within the pelvis. IMPRESSION:Uterine fibroid.The endometrial stripe is not well seen.Small left ovarian cyst.Follow-up with pelvic sonography in 3 to 6 months is advised Dictated on 08/09/10 1436 by Martha Dayscribed on 08/10/10 1409 by ITS IMPORTSign by Lizzy Day on 08/10/10 1410 Sign by: Lizzy Day 75-Fjd-93709:00 TRANSVAGINAL NON- Radiology See Note Comments: ADDENDUM COMPARISON:01/18/2005. The fibroid has increased in size compared to the prior study. Report (Normal) REPORT CLINICAL:Dysfunctional uterine bleeding PELVIC ULTRASOUND - COMPLETE TECHNIQUE:Transabdominal and Transvag inal COMPARISON:None. FINDINGS:Normal urinary bladder contour, without focal or diffuse wall thickening.There are no bladder calculi or intracystic masses. Normal uterine size, measuring 9.8 cm in maxim um craniocaudal dimension.There is an intramural fibroid in the anterior uterine corpus, measuring2.3 x 1.5 x 2.5 cm.. The endometrial stripe is not well seen. Normal right ovary measuring 3 x 2.1 x 1.5 cm. There are no cystic orsolid adnexal masses. Normal left ovary measuring 2.3 x 1.5 x 1.3 cm. There is a 1 cm cyst inthe left ovary . There is no free fluid within the pelvis. IMPRESSION:Uterine fi broid.The endometrial stripe is not well seen.Small left ovarian cyst.Follow- up with pelvic sonography in 3 to 6 months is advised Dictated on 08/09/101435 by Darrian Day MDbed on 17/06 by ITS IMPORTSign by Lizzy Day MD on 08/17/10741 Sign by: Lizzy Moore MD Addendum CLINICAL:Dysfunctional uterine bleeding PELVIC ULTRASOUND - COMPLETE TECHNIQUE:Transabdominal and Transvaginal COMPARISON:None. FIND INGS:Normal urinary bladder contour, without focal or diffuse wall thickening.There are no bladder calculi or intracystic masses. Normal uterine size, measuring 9.8 cm in maximum craniocaudal dimension. There is an intramural fibroid in the anterior uterine corpus, measuring2.3 x 1.5 x 2.5 cm.. The endometrial stripe is not well seen. Normal right ovary measuring 3 x 2.1 x 1.5 cm. There are no cystic orsolid adnexal masses. Normal left ovary measuring 2.3 x 1.5 x 1.3 cm. There is a 1 cm cyst inthe left ovary . There is no free fluid within the pelvis. IMPRESSION:Uterine fibroid.The endometrial stri pe is not well seen.Small left ovarian cyst.Follow-up with pelvic sonography in 3 to 6 months is advised Dictated on 08/28/102202 by Darrian Day MDbed on 08/28/102201 by ITS IMPORTSi gn by Lizzy Day MD on 01/02/11 1702 Sign by: Lizzy Day MD :44 PTT (ACTIVATED PARTIAL Comments: PATIENT NOT FASTINGPERFORMED BY: [facility]6[address] [facility] [id number] THROMBOPLASTIN TIME) (69556) aPTT 29 {sec} (Normal) Range: 24-33 Comments: This test has not been validated for monitoring unfractionated heparintherapy. aPTT-based therapeutic ranges for unfractionated heparintherapy have not been established. For general guidelines onHeparin monitoring, refer to the [facility] Directory of Services. :44 PT (PROTHROMBIN TIME) (73519) Comments: PATIENT NOT FASTINGPERFORMED BY: [facility]6[address] [facility] [id number] Prothrombin Time 10.5 {sec} (Normal) Range: 8.7-11.5 INR 1.0 (Normal) Range: 0.8-1.2 Comments: Reference interval is for non-anticoagulated patients. . Suggested INR therapeutic range for Vitamin K anta gonist therapy: Standard Dose (moderate intensity therapeutic range): 2.0 - 3.0 Higher intensity therapeutic range 2.5 - 3.5 :44 PROLACTIN (57057) Comments: PATIENT NOT FASTINGPERFORMED BY: [facility]6[address] [facility] [id number] Prolactin 14.9 ng/mL (Normal) Range: 4.8-23.3 :44 METABOLIC PANEL, Comments: PATIENT NOT FASTINGPERFORMED BY: [facility]6[address] [facility] [id number] Information: [id number] COMPREHENSIVE (00297) ALT (SGPT) 22 [iU]/L (Normal) Range: 0-40 AST (SGOT) 23 [iU]/L (Normal) Range: 0-40 Alkaline Phosphatase, S 79 [iU]/L (Normal) Range: 25-150 Bilirubin, Total 0.2 mg/dL (Normal) Range: 0.0-1.2 A/G Ratio 1.5 (Normal) Range: 1.1-2.5 Globulin, Total 3.1 g/dL (Normal) Range: 1.5-4.5 Albumin, Serum 4.6 g/dL (Normal) Range: 3.5-5.5 Protein, Total, Serum 7.7 g/dL (Normal) Range: 6.0-8.5 Calcium, Serum 9.6 mg/dL (Normal) Range: 8.7-10.2 Carbon Dioxide, Total 25 mmol/L (Normal) Range: 20-32 Chloride, Serum 99 mmol/L (Normal) Range: 97-108 Potassium, Serum 4.4 mmol/L (Normal) Range: 3.5-5.2 BUN/Creatinine Ratio 15 (Normal) Range: 8-27 Sodium, Serum 138 mmol/L (Normal) Range: 135-145 eGFR AfricanAmerican >59 mL/min/1.73 Comments: Note: Persistent reduction for 3 months or more in an eGFR<60 mL/min/1.73 m2 defines CKD. Patients with eGFR values>/=60 mL/min/1.73 m2 may also have CKD if evidence of persistentproteinuria is (Normal) present. Additional information may be found [email or web address]. eGFR >59 mL/min/1.73 (Normal) BUN 10 mg/dL (Normal) Range: 5-26 Creatinine, Serum 0.68 mg/dL (Normal) Range: 0.57-1.00 Glucose, Serum 88 mg/dL (Normal) Range: 65-99 02-Wxi-020554:44 TSH (50074) Comments: PATIENT NOT FASTINGPERFORMED BY: [facility] Eadlfv1862 [facility] [id number] TSH 2.410 {uIU/mL} (Normal) Range: 0.450-4.500 :44 CBC (AUTO) (93882) Comments: PATIENT NOT FASTINGPERFORMED BY: [facility] Lomtxb2169 [facility] [id number] MCHC 33.6 g/dL (Normal) Range: 32.0-36.0 Platelets 295 {x10E3/uL} (Normal) Range: 140-415 RDW 14.0 % (Normal) Range: 11.7-15.0 Hematocrit 38.7 % (Normal) Range: 34.0-44.0 MCH 30.1 pg (Normal) Range: 27.0-34.0 MCV 90 fL (Normal) Range: 80-98 Hemoglobin 13.0 g/dL (Normal) Range: 11.5-15.0 RBC 4.32 {x10E6/uL} (Normal) Range: 3.80-5.10 WBC 7.7 {x10E3/uL} (Normal) Range: 4.0-10.5 :23 HgA1C , Office (31537) HgA1C , Office 6.1 % (Normal) Range: 4.6 - 7.1 :23 Blood Glucose , Office (37113) Blood Glucose , Office 100 (Normal) :18 CBC With Differential/Platelet Comments: PATIENT WAS FASTINGPERFORMED BY: LabCoBristol-Myers Squibb Children's HospitalBhlboy7181 [facility] [id number] Immature Grans (Abs) 0.0 {x10E3/uL} (Normal) Range: 0.0-0.1 Baso (Absolute) 0.0 {x10E3/uL} (Normal) Range: 0.0-0.2 Eos (Absolute) 0.1 {x10E3/uL} (Normal) Range: 0.0-0.4 Immature Granulocytes 0 % (Normal) Range: 0-1 Lymphs (Absolute) 1.4 {x10E3/uL} (Normal) Range: 0.7-4.5 Monocytes(Absolute) 0.4 {x10E3/uL} (Normal) Range: 0.1-1.0 Neutrophils (Absolute) 4.2 {x10E3/uL} (Normal) Range: 1.8-7.8 Basos 0 % (Normal) Range: 0-3 Eos 2 % (Normal) Range: 0-7 Monocytes 7 % (Normal) Range: 4-13 Lymphs 24 % (Normal) Range: 14-46 MCHC 33.8 g/dL (Normal) Range: 32.0-36.0 Neutrophils 67 % (Normal) Range: 40-74 Platelets 242 {x10E3/uL} (Normal) Range: 140-415 RDW 14.2 % (Normal) Range: 11.7-15.0 Hematocrit 36.7 % (Normal) Range: 34.0-44.0 MCH 29.2 pg (Normal) Range: 27.0-34.0 MCV 86 fL (Normal) Range: 80-98 Hemoglobin 12.4 g/dL (Normal) Range: 11.5-15.0 RBC 4.25 {x10E6/uL} (Normal) Range: 3.80-5.10 WBC 6.1 {x10E3/uL} (Normal) Range: 4.0-10.5 10-Gqj-188976:18 Comp. Metabolic Panel (14) Comments: PATIENT WAS FASTINGPERFORMED BY: [facility] Xiifer8756 [facility] [id number] ALT (SGPT) 18 [iU]/L (Normal) Range: 0-40 A/G Ratio 1.6 (Normal) Range: 1.1-2.5 Albumin, Serum 4.4 g/dL (Normal) Range: 3.5-5.5 Alkaline Phosphatase, S 78 [iU]/L (Normal) Range: 25-150 AST (SGOT) 19 [iU]/L (Normal) Range: 0-40 Bilirubin, Total 0.4 mg/dL (Normal) Range: 0.0-1.2 Globulin, Total 2.7 g/dL (Normal) Range: 1.5-4.5 Calcium, Serum 9.2 mg/dL (Normal) Range: 8.7-10.2 Carbon Dioxide, Total 24 mmol/L (Normal) Range: 20-32 Chloride, Serum 101 mmol/L (Normal) Range: 97-108 Protein, Total, Serum 7.1 g/dL (Normal) Range: 6.0-8.5 BUN/Creatinine Ratio 19 (Normal) Range: 8-27 Creatinine, Serum 0.64 mg/dL (Normal) Range: 0.57-1.00 eGFR >59 mL/min/1.73 (Normal) eGFR AfricanAmerican >59 mL/min/1.73 Comments: Note: Persistent reduction for 3 months or more in an eGFR<60 mL/min/1.73 m2 defines CKD. Patients with eGFR values>/=60 mL/min/1.73 m2 may also have CKD if evidence of persistentproteinuria is (Normal) present. Additional information may be found [email or web address]. Potassium, Serum 4.4 mmol/L (Normal) Range: 3.5-5.2 Sodium, Serum 138 mmol/L (Normal) Range: 135-145 BUN 12 mg/dL (Normal) Range: 5-26 Glucose, Serum 99 mg/dL (Normal) Range: 65-99 :18 Lipid Panel With LDL/HDL Comments: PATIENT WAS FASTINGPERFORMED BY: [email or web address] [facility] [id number] Ratio HDL Cholesterol 53 mg/dL (Normal) Comments: According to ATP-III Guidelines, HDL-C >59 mg/dL is considered anegative risk factor for CHD. LDL Cholesterol Calc 104 mg/dL Range: 0-99 (Abnormal) LDL/HDL Ratio 2.0 {ratio_units} Range: 0.0-3.2 (Normal) Triglycerides 90 mg/dL (Normal) Range: 0-149 VLDL Cholesterol Aneesh 18 mg/dL (Normal) Range: 5-40 Cholesterol, Total 175 mg/dL (Normal) Range: 100-199 TSH 2.770 {uIU/mL} Comments: PATIENT WAS FASTINGPERFORMED BY: dineout6370 [facility] [id number] :18 (Normal) Range: 0.450-4.500 :48 HgA1C , Office (47241) HgA1C , Office 6.2 % (Normal) Range: 4.6 - 7.1 :48 Blood Glucose , Office (95327) Blood Glucose , Office 97 (Normal) :46 CBC With Differential/Platelet Comments: PATIENT WAS FASTINGPERFORMED BY: [facility] Zibcba9379 [facility] [id number] Baso (Absolute) 0.0 {x10E3/uL} (Normal) Range: 0.0-0.2 Basos 0 % (Normal) Range: 0-3 Eos 1 % (Normal) Range: 0-7 Eos (Absolute) 0.1 {x10E3/uL} (Normal) Range: 0.0-0.4 Hematocrit 35.2 % (Normal) Range: 34.0-44.0 Hemoglobin 12.1 g/dL (Normal) Range: 11.5-15.0 Lymphs 18 % (Normal) Range: 14-46 Lymphs (Absolute) 1.2 {x10E3/uL} (Normal) Range: 0.7-4.5 MCH 29.2 pg (Normal) Range: 27.0-34.0 MCHC 34.3 g/dL (Normal) Range: 32.0-36.0 MCV 85 fL (Normal) Range: 80-98 Monocytes 7 % (Normal) Range: 4-13 Monocytes(Absolute) 0.5 {x10E3/uL} (Normal) Range: 0.1-1.0 Neutrophils 74 % (Normal) Range: 40-74 Neutrophils (Absolute) 5.0 {x10E3/uL} (Normal) Range: 1.8-7.8 Platelets 270 {x10E3/uL} (Normal) Range: 140-415 RBC 4.13 {x10E6/uL} (Normal) Range: 3.80-5.10 RDW 14.8 % (Normal) Range: 11.7-15.0 WBC 6.7 {x10E3/uL} (Normal) Range: 4.0-10.5 Comments: Please note reference interval change for the pediatric CBC With Differential/Platelet :46 Comp. Metabolic Panel (14) Comments: PATIENT WAS FASTINGPERFORMED BY: [facility] [id number] [facility] [id number] A/G Ratio 1.5 (Normal) Range: 1.1-2.5 Albumin, Serum 4.4 g/dL (Normal) Range: 3.5-5.5 Alkaline Phosphatase, S 75 [iU]/L (Normal) Range: 25-150 ALT (SGPT) 29 [iU]/L (Normal) Range: 0-40 AST (SGOT) 25 [iU]/L (Normal) Range: 0-40 Bilirubin, Total 0.4 mg/dL (Normal) Range: 0.1-1.2 BUN 9 mg/dL (Normal) Range: 5-26 BUN/Creatinine Ratio 15 (Normal) Range: 8-27 Calcium, Serum 9.8 mg/dL (Normal) Range: 8.5-10.6 Carbon Dioxide, Total 25 mmol/L (Normal) Range: 20-32 Chloride, Serum 101 mmol/L (Normal) Range: 97-108 Creatinine, Serum 0.60 mg/dL (Normal) Range: 0.57-1.00 Globulin, Total 2.9 g/dL (Normal) Range: 1.5-4.5 Glom Filt Rate, Est >59 mL/min/1.73 (Normal) Glucose, Serum 103 mg/dL (Abnormal) Range: 65-99 If -Bolivian >59 mL/min/1.73 Comments: Note: Persistent reduction for 3 months or more in an eGFR<60 mL/min/1.73 m2 defines CKD. Patients with eGFR values>/=60 mL/min/1.73 m2 may also have CKD if evidence of persistentproteinur ia is (Normal) present. Additional information may be found [email or web address]. Potassium, Serum 4.3 mmol/L (Normal) Range: 3.5-5.2 Protein, Total, Serum 7.3 g/dL (Normal) Range: 6.0-8.5 Sodium, Serum 139 mmol/L (Normal) Range: 135-145 :46 Lipid Panel With LDL/HDL Comments: PATIENT WAS FASTINGPERFORMED BY: Equiendo PA [id number] Ratio Cholesterol, Total 179 mg/dL (Normal) Range: 100-199 Comment SPRCS (Normal) Comments: If initial LDL-cholesterol result is >100 mg/dL, assess forrisk factors. HDL Cholesterol 65 mg/dL (Normal) Comments: According to ATP-III Guidelines, HDL-C >59 mg/dL is considered anegative risk factor for CHD. LDL Cholesterol Calc 100 mg/dL (Abnormal) Range: 0-99 LDL/HDL Ratio 1.5 {ratio_units} (Normal) Range: 0.0-3.2 Triglycerides 68 mg/dL (Normal) Range: 0-149 VLDL Cholesterol Aneesh 14 mg/dL (Normal) Range: 5-40 :46 Thyroxine (T4) Free, Direct, S Comments: PATIENT WAS FASTINGPERFORMED BY: Equiendo PA [id number] T4,Free(Direct) 1.13 ng/dL Range: 0.61-1.76 (Normal) 30-Jul-2008 Triiodothyronine,Free,Seru 3.0 pg/mL (Normal) Comments: PATIENT WAS FASTINGPERFORMED BY: [facility] [facility] [id number] 9:46 m Range: 2.3-4.2 30-Jul-2008 TSH 2.949 {uIU/mL} Comments: PATIENT WAS FASTINGPERFORMED BY: [facility] [facility] [id number] 9:46 (Normal) Range: 0.450-4.500 80-Cph-85576:43 Blood Glucose , Office (62282) Comments: done>Wf. Blood Glucose , Office 100 (Normal) 0-Mhr-040993:30 GLUP 105 mg/dL (Normal) Comments: GLU,2HPPG 75gm GLUC PPG GLUP from 1208:[id number]. 3-Dye-128932:24 ESR SED RATE 31 mm/h (Abnormal) Range: 0-30 1-Vfz-414571:24 HGB A1C 6.7 % (Abnormal) Range: 4.0-6.3 Comments: The methodology of Hgb A1C has changed to Kacie BehringDimension RXL. No significant changes in patientresults are expected. The reference range remains the same. 5-Ntu-396841:03 BREAST UNILATERAL US () Radiology Report See Note (Normal) Comments: Exam Number: [id number] TARGETED RIGHT BREAST ULTRASOUND HISTORYAbnormal mammogram. High resolution realtime linear images of the upper half of the rightbreast were obtained. At 9:30, 4 to 5 cm from th e nipple is a solid mildly inhomogeneousnodule measuring 0.9 x 0.6 x 1.3 cm in size. The margins of thenodule are fairly well defined. This, however, is not a cyst. IMPRESSIONThere is a solid nodule i dentified at 9:30 in the right breast. Thismeasures 1.3 cm in maximum dimension. Surgical evaluation issuggested. Reported By: PHYLLIS HEWITT M.D. 26-Jul-20089:50 UNILAT RT DIAG DIGITAL & CAD Radiology Report See Note (Normal) Comments: Exam Number: [id number] TARGETED RIGHT BREAST ULTRASOUND HISTORYAbnormal mammogram. High-resolution real-time linear images of the upper half of the leftbreast were obtained. In the upper outer quadra nt of the rightbreast at approximately 9:30 and 4 to 5 cm from the nipple, there vera hypoechoic nodule identified measuring 0.9 x 0.6 x 1.3 cm. Thisnodule is hypoechoic. It is not echolucent. This is not a cyst.The location of this nodule relative to the nipple appears lower thanon the mammogram. However, when going from a mediolateral obliqueto a true lateral projection, nodules which are located in the outerhalf of the breast will appear to move inferiorly. On themammographic images, the focal nodule was seen in mediolateral obliqueprojection only. Therefore, further evaluation of this inhom ogeneousbut well-defined solid nodule is recommended. It is also recommendedthat the nodule be localized using ultrasound. IMPRESSIONThere is an inhomogeneous solid nodule in the upper outer quadrant ofthe right breast at approximately 9:30. Surgical evaluation of thisnodule is recommended. Localization of this nodule by ultrasound isrecommended. MAMMOGRAM, RIGHT DIAGNOSTIC DIGITAL AND CAD HIST ORYAbnormal screening. Full field digital images were obtained in true lateral andmediolateral oblique spot compression view. The current study is compared to the examinations of July 21, 2008. The b reast parenchyma is extremely dense. The mediolateral obliquespot compression view again demonstrates an apparent focal nodule inthe upper half of the right breast. As seen on the mammographicimages, the nodule measures approximately 1.6 x 1.1 cm. The noduleis more difficult to identify in the true lateral projection althoughthere is increased density at its approximate location. The nodule isnot identifiable in the craniocaudal view and is thereforeincompletely localized on the mammographic images. An ultrasoundexamination of the upper half of the right breast has demonstrated afocal solid nod ule measuring 1.3 x 0.9 x 0.6 cm. This is likely torepresent the nodule seen on the mammographic images. For furtherevaluation of this finding, surgical evaluation is recommended. It is recommended t hat localization of the nodule be performed withultrasound. IMPRESSIONSuspicious for malignancy. BIRADS category 4. Report will be called to Dr. Jiménez's office. A letter regarding these results has been sent to the patient. This interpretation was rendered by a radiologist certified under theMammography Quality Standards Act of 1992 (MQSA). The mammograms werealso examined with computer-aide d detection software ([employer] Reported By: PHYLLIS HEWITT M.D. :36 [facility] DIGITAL & CAD Radiology Report See Note (Normal) Comments: Exam Number: [id number] MAMMOGRAM, BILATERAL SCREENING DIGITAL AND CAD HISTORYRoutine screening. Full field digital images were obtained in mediolateral oblique,craniocaudal, and cleavage projections. C AD images were reviewed. No previous study is available for comparison. There is a severe extent of fibroglandular parenchyma present. Thereis no skin thickening or retraction, architectural distortion , orcluster of suspicious microcalcifications. The right mediolateraloblique projection demonstrates an apparent focal density in the upperhalf of the breast. Right true lateral and spot mediolateral obliqueviews are recommended. Ultrasound may be needed. Note is made that the patient reported a previous study performed at [facility]. That examination was too old and is nolonger avai lable. IMPRESSIONThere is an apparent focal density in the upper right breast. Additional views are recommended. Ultrasound may also be needed. FINAL ASSESSMENT Need additional imaging evaluation.BI RADS Category 0. A letter regarding these results has been sent to the patient. This interpretation was rendered by a radiologist certified under theMammography Quality Standards Act of 1992 (MQSA). T he mammograms werealso examined with computer-aided detection software ([employer] Reported By: PHYLLIS HEWITT M.D. :26 H pylori, IgM, IgG, IgA Ab Comments: PERFORMED BY: [facility] [facility] [id number] H. pylori IgG, Abs <0.9 U/mL (Normal) Range: 0.0-0.8 Comments: Negative <0.9 Indeterminate 0.9 - 1.0 Positive >1.0 H. pylori, IgA ABS <0.89 {index} (Normal) Range: 0.00-0.88 Comments: Negative <0.89 Equivocal 0.89 - 0.99 Positive >0.99 H.pylori, IgM ABS <0.80 {index} (Normal) Range: 0.00-0.79 Comments: Negative <0.80 Equivocal 0.80 - 1.19 Positive >1.19 . Current studies suggest that H. pylori IgM testing should be performed concomitantly with H. pylori IgA and/or IgG tests to support a diagnosis of Helicobacter pylori infection. . For research use only, not for use in clinical diagnostic procedures. Plan of Care Name Dates Details Instructions Controlled diabetes mellitus type II without complication : Diet, Exercise, and Wt loss Indication: Controlled diabetes mellitus type II without complication Controlled diabetes mellitus type II without complication : *Diabetes Education Indication: Controlled diabetes mellitus type II without complication Atrial fibrillation, rapid : Continue Current Prescription(s) Indication: Atrial fibrillation, rapid Atrial fibrillation, rapid : Reviewed Water Proofer Letter Indication: Atrial fibrillation, rapid Benign essential hypertension : HTN/CAD Red Flags Indication: Benign essential hypertension Non-smoker : Eprescribed prescriptions (G8553) Indication: Non-smoker Physical exam WITHOUT abnormal findings (Renamed from Encounter for routine adult health examination without abnormal findings) : Eprescribed prescriptions (G8553) Indication: Physical exam WITHOUT abnormal findings (Renamed from Encounter for routine adult health examination without abnormal findings) Gerd : GERD Education Indication: Gerd Hypercholesteremia : Cholesterol mgmt Indication: Hypercholesteremia Atrial fibrillation, rapid : Continue Current Prescription(s) Indication: Atrial fibrillation, rapid Controlled diabetes mellitus type II without complication : Follow up in 3 months Indication: Controlled diabetes mellitus type II without complication Benign essential hypertension : Diet, Exercise, and Wt loss Indication: Benign essential hypertension Benign essential hypertension : HTN/CAD Red Flags Indication: Benign essential hypertension Controlled diabetes mellitus type II without complication : *Diabetes Education Indication: Controlled diabetes mellitus type II without complication Pain in unspecified joint : Knee Injections- left knee Indication: Pain in unspecified joint Pain in unspecified joint : Reviewed Diagnostic Tests Indication: Pain in unspecified joint RLQ abdominal pain : Follow up - Make appt after diagnostic tests Indication: RLQ abdominal pain Epigastric pain : Continue Current Prescription(s) Indication: Epigastric pain Hypercholesteremia : Continue Current Prescription(s) Indication: Hypercholesteremia Controlled diabetes mellitus type II without complication : Reviewed Lab Indication: Controlled diabetes mellitus type II without complication Gerd : GERD Education Indication: Gerd Controlled diabetes mellitus type II without complication : Follow up in 3 months Indication: Controlled diabetes mellitus type II without complication Hypercholesteremia : Cholesterol mgmt Indication: Hypercholesteremia Benign essential hypertension : Diet, Exercise, and Wt loss Indication: Benign essential hypertension Benign essential hypertension : HTN/CAD Red Flags Indication: Benign essential hypertension Controlled diabetes mellitus type II without complication : Eprescribed prescriptions (G8553) Indication: Controlled diabetes mellitus type II without complication Gerd : GERD Education Indication: Gerd Controlled diabetes mellitus type II without complication : Follow up in 4 months Indication: Controlled diabetes mellitus type II without complication Hypercholesteremia : Cholesterol mgmt Indication: Hypercholesteremia Benign essential hypertension : Diet, Exercise, and Wt loss Indication: Benign essential hypertension Benign essential hypertension : HTN/CAD Red Flags Indication: Benign essential hypertension Controlled diabetes mellitus type II without complication : *Diabetes Education Indication: Controlled diabetes mellitus type II without complication Uncontrolled type II diabetes mellitus : Eprescribed prescriptions (G8553) Indication: Uncontrolled type II diabetes mellitus Unspecified osteoarthritis, unspecified site : Knee Injections-L Indication: Unspecified osteoarthritis, unspecified site Unspecified osteoarthritis, unspecified site : Knee Injections-R Indication: Unspecified osteoarthritis, unspecified site Unspecified osteoarthritis, unspecified site : Knee Injections Indication: Unspecified osteoarthritis, unspecified site Uncontrolled type II diabetes mellitus : Follow up in 3 months Indication: Uncontrolled type II diabetes mellitus Benign essential hypertension : Continue Current Prescription(s) Indication: Benign essential hypertension Gerd : GERD Education Indication: Gerd Benign essential hypertension : HTN/CAD Red Flags Indication: Benign essential hypertension Hypercholesteremia : Cholesterol mgmt Indication: Hypercholesteremia Uncontrolled type II diabetes mellitus : Diet, Exercise, and Wt loss Indication: Uncontrolled type II diabetes mellitus Uncontrolled type II diabetes mellitus : *Diabetes Education Indication: Uncontrolled type II diabetes mellitus Benign essential hypertension : Continue Current Prescription(s) Indication: Benign essential hypertension Controlled diabetes mellitus type II without complication : Reviewed Lab Indication: Controlled diabetes mellitus type II without complication Controlled diabetes mellitus type II without complication : Follow up in 3 months Indication: Controlled diabetes mellitus type II without complication Gerd : GERD Education Indication: Gerd Hypercholesteremia : Cholesterol mgmt Indication: Hypercholesteremia Benign essential hypertension : HTN/CAD Red Flags Indication: Benign essential hypertension Controlled diabetes mellitus type II without complication : Diet, Exercise, and Wt loss Indication: Controlled diabetes mellitus type II without complication Controlled diabetes mellitus type II without complication : *Diabetes Education Indication: Controlled diabetes mellitus type II without complication BMI 37.0-37.9, adult : Eprescribed prescriptions (G8553) Indication: BMI 37.0-37.9, adult Atrial fibrillation, rapid : Continue Current Prescription(s) Indication: Atrial fibrillation, rapid Atrial fibrillation, rapid : Eprescribed prescriptions (G8553) Indication: Atrial fibrillation, rapid Atrial fibrillation, rapid : Reviewed Lab Indication: Atrial fibrillation, rapid Atrial fibrillation, rapid : Reviewed Diagnostic Tests Indication: Atrial fibrillation, rapid Chronic epigastric pain : Continue Current Prescription(s) Indication: Chronic epigastric pain Controlled diabetes mellitus type II without complication : Reviewed Lab Indication: Controlled diabetes mellitus type II without complication Controlled diabetes mellitus type II without complication : Follow up in 3 months Indication: Controlled diabetes mellitus type II without complication Gerd : GERD Education Indication: Gerd Controlled diabetes mellitus type II without complication : *Diabetes Education Indication: Controlled diabetes mellitus type II without complication Hypercholesteremia : Cholesterol mgmt Indication: Hypercholesteremia Benign essential hypertension : Diet, Exercise, and Wt loss Indication: Benign essential hypertension Benign essential hypertension : HTN/CAD Red Flags Indication: Benign essential hypertension Controlled diabetes mellitus type II without complication : Eprescribed prescriptions (G8553) Indication: Controlled diabetes mellitus type II without complication Controlled diabetes mellitus type II without complication : Diabetes and Exercise: Preventing Low Blood Sugar: blood sugar Indication: Controlled diabetes mellitus type II without complication Hypercholesteremia : Cholesterol mgmt Indication: Hypercholesteremia Gerd : GERD Education Indication: Gerd Benign essential hypertension : HTN/CAD Red Flags Indication: Benign essential hypertension Controlled diabetes mellitus type II without complication : Follow up in 3 months Indication: Controlled diabetes mellitus type II without complication Controlled diabetes mellitus type II without complication : Eprescribed prescriptions (G8553) Indication: Controlled diabetes mellitus type II without complication Controlled diabetes mellitus type II without complication : Diabetes and Exercise: Preventing Low Blood Sugar: blood sugar Indication: Controlled diabetes mellitus type II without complication Acute left ankle pain : Follow up - Make appt after diagnostic tests Indication: Acute left ankle pain Achilles tendinitis of left lower extremity : Follow up in 2 weeks Indication: Achilles tendinitis of left lower extremity Achilles tendinitis of left lower extremity : Eprescribed prescriptions (G8553) Indication: Achilles tendinitis of left lower extremity Gerd : GERD Education Indication: Gerd Hypercholesteremia : Cholesterol mgmt Indication: Hypercholesteremia Hypertension : Diet, Exercise, and Wt loss Indication: Hypertension Hypertension : HTN/CAD Red Flags Indication: Hypertension Uncontrolled type II diabetes mellitus : Follow up in 3 months Indication: Uncontrolled type II diabetes mellitus Uncontrolled type II diabetes mellitus : Diet, Exercise, and Wt loss Indication: Uncontrolled type II diabetes mellitus Uncontrolled type II diabetes mellitus : *Diabetes Education Indication: Uncontrolled type II diabetes mellitus Uncontrolled type II diabetes mellitus : *Diabetes Education Indication: Uncontrolled type II diabetes mellitus Flu-like symptoms : Follow up if no improvement or if symptoms worsen Indication: Flu-like symptoms Bronchitis : *URI Symptoms Indication: Bronchitis Bronchitis : *Antibiotic Usage Education - Female Indication: Bronchitis Benign essential hypertension : HTN/CAD Red Flags Indication: Benign essential hypertension Gerd : GERD Education Indication: Gerd Hypercholesteremia : Cholesterol mgmt Indication: Hypercholesteremia Controlled diabetes mellitus type II without complication : Follow up in 3 months Indication: Controlled diabetes mellitus type II without complication Controlled diabetes mellitus type II without complication : *Diabetes Education Indication: Controlled diabetes mellitus type II without complication Controlled diabetes mellitus type II without complication : Blood Glucose Test: blood Indication: Controlled diabetes mellitus type II without complication Benign essential hypertension : Eprescribed prescriptions (G8553) Indication: Benign essential hypertension Gerd : Follow up - Make appt after diagnostic tests Indication: Gerd Benign essential hypertension : Follow up - Make appt after diagnostic tests Indication: Benign essential hypertension Uncontrolled type II diabetes mellitus : Diet, Exercise, and Wt loss Indication: Uncontrolled type II diabetes mellitus Uncontrolled type II diabetes mellitus : *Diabetes Education Indication: Uncontrolled type II diabetes mellitus Hypercholesteremia : Reviewed Lab Indication: Hypercholesteremia Hypercholesteremia : Cholesterol mgmt Indication: Hypercholesteremia Controlled diabetes mellitus type II without complication : Follow up in 2 weeks-- fu labs Indication: Controlled diabetes mellitus type II without complication Controlled diabetes mellitus type II without complication : Follow up in 3 months- gen med Indication: Controlled diabetes mellitus type II without complication Controlled diabetes mellitus type II without complication : *Diabetes Education Indication: Controlled diabetes mellitus type II without complication Hypercholesteremia : Cholesterol mgmt Indication: Hypercholesteremia Benign essential hypertension : HTN/CAD Red Flags Indication: Benign essential hypertension Gerd : GERD Education Indication: Gerd Controlled diabetes mellitus type II without complication : Eprescribed prescriptions (G8553) Indication: Controlled diabetes mellitus type II without complication Controlled diabetes mellitus type II without complication : Diabetes and Exercise: Preventing Low Blood Sugar: blood sugar Indication: Controlled diabetes mellitus type II without complication Controlled diabetes mellitus type II without complication : Follow up in 3 months Indication: Controlled diabetes mellitus type II without complication Gerd : GERD Education Indication: Gerd Hypercholesteremia : Cholesterol mgmt Indication: Hypercholesteremia Benign essential hypertension : Diet, Exercise, and Wt loss Indication: Benign essential hypertension Benign essential hypertension : HTN/CAD Red Flags Indication: Benign essential hypertension Controlled diabetes mellitus type II without complication : Diabetes and Exercise: Preventing Low Blood Sugar: blood sugar Indication: Controlled diabetes mellitus type II without complication Uncontrolled type II diabetes mellitus : Follow up in 3 months Indication: Uncontrolled type II diabetes mellitus Uncontrolled type II diabetes mellitus : *Diabetes Education Indication: Uncontrolled type II diabetes mellitus Benign essential hypertension : Continue Current Prescription(s) Indication: Benign essential hypertension Gerd : GERD Education Indication: Gerd Benign essential hypertension : HTN/CAD Red Flags Indication: Benign essential hypertension Hypercholesteremia : Cholesterol mgmt Indication: Hypercholesteremia Diarrhea : Acute Diarrhea: acute diarrhea Indication: Diarrhea Unspecified osteoarthritis, unspecified site : Reviewed Water Proofer Letter Indication: Unspecified osteoarthritis, unspecified site Controlled diabetes mellitus type II without complication : Follow up in 3 months Indication: Controlled diabetes mellitus type II without complication Hypercholesteremia : Cholesterol mgmt Indication: Hypercholesteremia Gerd : GERD Education Indication: Gerd Benign essential hypertension : Diet, Exercise, and Wt loss Indication: Benign essential hypertension Benign essential hypertension : HTN/CAD Red Flags Indication: Benign essential hypertension Controlled diabetes mellitus type II without complication : Diabetes Overview (Living with Diabetes): high blood glucose Indication: Controlled diabetes mellitus type II without complication Gerd : GERD Education Indication: Gerd Hypertension : HTN/CAD Red Flags Indication: Hypertension Controlled diabetes mellitus type II without complication : Follow up in 3 months Indication: Controlled diabetes mellitus type II without complication Controlled diabetes mellitus type II without complication : Diabetes Mellitus: Type 2 *: high blood glucose Indication: Controlled diabetes mellitus type II without complication Gerd : GERD Education Indication: Gerd Pain in unspecified joint : Reviewed Lab Indication: Pain in unspecified joint Controlled diabetes mellitus type II without complication : Continue Current Prescription(s) Indication: Controlled diabetes mellitus type II without complication Controlled diabetes mellitus type II without complication : Follow up in 3 months Indication: Controlled diabetes mellitus type II without complication Hypertension : Continue Current Prescription(s) Indication: Hypertension Controlled diabetes mellitus type II without complication : *Diabetes Education Indication: Controlled diabetes mellitus type II without complication Hypertension : HTN/CAD Red Flags Indication: Hypertension Hypercholesteremia : Cholesterol mgmt Indication: Hypercholesteremia Controlled diabetes mellitus type II without complication : Diabetes Mellitus: Type 2 *: high blood glucose Indication: Controlled diabetes mellitus type II without complication Uncontrolled type II diabetes mellitus : Follow up in 3 months Indication: Uncontrolled type II diabetes mellitus Hypercholesteremia : Cholesterol mgmt Indication: Hypercholesteremia Gerd : GERD Education Indication: Gerd Hypertension : HTN/CAD Red Flags Indication: Hypertension Uncontrolled type II diabetes mellitus : Diet, Exercise, and Wt loss Indication: Uncontrolled type II diabetes mellitus Uncontrolled type II diabetes mellitus : *Diabetes Education Indication: Uncontrolled type II diabetes mellitus Gerd : GERD Education Indication: Gerd Controlled diabetes mellitus type II without complication : Reviewed Lab Indication: Controlled diabetes mellitus type II without complication Hypercholesteremia : Continue Current Prescription(s) Indication: Hypercholesteremia Controlled diabetes mellitus type II without complication : Follow up in 3 months Indication: Controlled diabetes mellitus type II without complication Benign essential hypertension : Diet, Exercise, and Wt loss Indication: Benign essential hypertension Benign essential hypertension : HTN/CAD Red Flags Indication: Benign essential hypertension Hypercholesteremia : *Cholesterol - Nonprescription Treatment Indication: Hypercholesteremia Hypercholesteremia : Cholesterol mgmt Indication: Hypercholesteremia Controlled diabetes mellitus type II without complication : Diabetes Overview (Living with Diabetes): blood glucose Indication: Controlled diabetes mellitus type II without complication Benign essential hypertension : Continue Current Prescription(s) Indication: Benign essential hypertension Unspecified osteoarthritis, unspecified site : Diet, Exercise, and Wt loss Indication: Unspecified osteoarthritis, unspecified site Controlled diabetes mellitus type II without complication : Follow up in 3 months- do ekg at this visit Indication: Controlled diabetes mellitus type II without complication Benign essential hypertension : HTN/CAD Red Flags Indication: Benign essential hypertension Hypercholesteremia : *Cholesterol - Nonprescription Treatment Indication: Hypercholesteremia Hypercholesteremia : Cholesterol mgmt Indication: Hypercholesteremia Controlled diabetes mellitus type II without complication : Diabetes Overview (Living with Diabetes): diabetes type 2 Indication: Controlled diabetes mellitus type II without complication Controlled diabetes mellitus type II without complication : Follow up in 3 months Indication: Controlled diabetes mellitus type II without complication Hypercholesteremia : *Cholesterol - Nonprescription Treatment Indication: Hypercholesteremia Hypercholesteremia : Cholesterol mgmt Indication: Hypercholesteremia Benign essential hypertension : Diet, Exercise, and Wt loss Indication: Benign essential hypertension Benign essential hypertension : HTN/CAD Red Flags Indication: Benign essential hypertension Controlled diabetes mellitus type II without complication : *Diabetes Education Indication: Controlled diabetes mellitus type II without complication Controlled diabetes mellitus type II without complication : Diet, Exercise, and Wt loss Indication: Controlled diabetes mellitus type II without complication Uncontrolled type II diabetes mellitus : Follow up in 3 months Indication: Uncontrolled type II diabetes mellitus Uncontrolled type II diabetes mellitus : Diet, Exercise, and Wt loss Indication: Uncontrolled type II diabetes mellitus Uncontrolled type II diabetes mellitus : *Diabetes Education Indication: Uncontrolled type II diabetes mellitus Hypercholesteremia : *Cholesterol - Nonprescription Treatment Indication: Hypercholesteremia Hypercholesteremia : Cholesterol mgmt Indication: Hypercholesteremia Benign essential hypertension : Diet, Exercise, and Wt loss Indication: Benign essential hypertension Benign essential hypertension : HTN/CAD Red Flags Indication: Benign essential hypertension Uncontrolled type II diabetes mellitus : Reviewed Lab Indication: Uncontrolled type II diabetes mellitus Controlled diabetes mellitus type II without complication : FOLLOW UP IN 3 MONTHS Indication: Controlled diabetes mellitus type II without complication Hypercholesteremia : *Cholesterol - Medication Side Effects Indication: Hypercholesteremia Hypercholesteremia : *Cholesterol - Nonprescription Treatment Indication: Hypercholesteremia Hypercholesteremia : CHOLESTEROL MGMT. Indication: Hypercholesteremia Benign essential hypertension : Diet, Exercise, and Wt loss Indication: Benign essential hypertension Benign essential hypertension : HTN/CAD Red Flags Indication: Benign essential hypertension Controlled diabetes mellitus type II without complication : *Diabetes Education Indication: Controlled diabetes mellitus type II without complication Controlled diabetes mellitus type II without complication : Diet, Exercise, and Wt loss Indication: Controlled diabetes mellitus type II without complication Dysfunctional uterine bleeding : Reviewed Lab Indication: Dysfunctional uterine bleeding Dysfunctional uterine bleeding : Reviewed Diagnostic Tests Indication: Dysfunctional uterine bleeding Laryngitis : Laryngitis Education Indication: Laryngitis Dysfunctional uterine bleeding : FOLLOW UP - MAKE APPT AFTER DIAGNOSTIC TESTS Indication: Dysfunctional uterine bleeding Hypercholesteremia : CHOLESTEROL MGMT. Indication: Hypercholesteremia Hypercholesteremia : *Cholesterol - Nonprescription Treatment Indication: Hypercholesteremia Hypercholesteremia : *Cholesterol - Medication Side Effects Indication: Hypercholesteremia Controlled diabetes mellitus type II without complication : FOLLOW UP IN 3 MONTHS Indication: Controlled diabetes mellitus type II without complication Benign essential hypertension : HTN/CAD Red Flags Indication: Benign essential hypertension Benign essential hypertension : Diet, Exercise, and Wt loss Indication: Benign essential hypertension Benign essential hypertension : Continue Current Prescription(s) Indication: Benign essential hypertension Benign essential hypertension : FOLLOW UP IN 6 WEEKS Indication: Benign essential hypertension Benign essential hypertension : Continue Current Prescription(s) Indication: Benign essential hypertension Unspecified osteoarthritis, unspecified site : Diet, Exercise, and Wt loss Indication: Unspecified osteoarthritis, unspecified site Benign essential hypertension : HTN/CAD Red Flags Indication: Benign essential hypertension Benign essential hypertension : FOLLOW UP IN 6 WEEKS Indication: Benign essential hypertension Controlled diabetes mellitus type II without complication : FOLLOW UP IN 3 MONTHS Indication: Controlled diabetes mellitus type II without complication Controlled diabetes mellitus type II without complication : Diet, Exercise, and Wt loss Indication: Controlled diabetes mellitus type II without complication Controlled diabetes mellitus type II without complication : *Diabetes Education Indication: Controlled diabetes mellitus type II without complication Benign essential hypertension : Diet, Exercise, and Wt loss Indication: Benign essential hypertension Benign essential hypertension : HTN/CAD Red Flags Indication: Benign essential hypertension Uncontrolled type II diabetes mellitus : Diet, Exercise, and Wt loss Indication: Uncontrolled type II diabetes mellitus Uncontrolled type II diabetes mellitus : *Diabetes Education Indication: Uncontrolled type II diabetes mellitus Breast mass : Reviewed Diagnostic Tests Indication: Breast mass Uncontrolled type II diabetes mellitus : Reviewed Lab Indication: Uncontrolled type II diabetes mellitus Planned Observations HGB A1C ([id number])Indication: Controlled diabetes mellitus type II without complication On: 1-Hlq-064647:27 Request Cologuard - Strool Based DNA Test, CRC SCREEN ([id number])Indication: Screening for colon cancer On: 30-Ikt-340899:51 Request TSH ([id number])Indication: Controlled diabetes mellitus type II without complication On: 0-Gxr-142529:53 Request URINALYSIS, W/ MICRO ([id number])Indication: Controlled diabetes mellitus type II without complication On: 6-Yds-569866:53 Request MICROALBUMIN: CREATININE RATIO ([id number]) AND ([id number])Indication: Controlled diabetes mellitus type II without complication On: 1-Jvg-274510:53 Request METABOLIC PANEL, COMPREHENSIVE ([id number])Indication: Controlled diabetes mellitus type II without complication On: 7-Nxw-136949:53 Request LIPOPROTEIN, BLD, BY NMR ([id number])Indication: Controlled diabetes mellitus type II without complication On: 1-Pvu-076755:53 Request LIPID PANEL ([id number])Indication: Controlled diabetes mellitus type II without complication On: 8-Ajt-197910:53 Request CBC W/AUTO DIFF WBC ([id number])Indication: Controlled diabetes mellitus type II without complication On: 4-Vqw-046288:52 Request HGB A1C ([id number])Indication: Controlled diabetes mellitus type II without complication On: 22-Mar-20178:18 Request LIPID PANEL ([id number])Indication: Hypercholesteremia On: 22-Mar-20178:17 Request HGB A1C ([id number])Indication: Uncontrolled type II diabetes mellitus On: 31-Oct-2016 Request POTASSIUM SERUM ([id number])Indication: High potassium On: 1-Ptv-400423:06 Request HELICO PYLORI, STOOL, INFCT ANTIGEN ([id number])Indication: NSAID long-term use On: 8-Rns-058132:05 Request TSH ([id number])Indication: Uncontrolled type II diabetes mellitus On: 3-Fwf-924316:58 Request TSH ([id number])Indication: Pain in unspecified joint On: 04-Yvo-175032:41 Request CBC WITH MANUAL DIFF ([id number])Indication: Pain in unspecified joint On: :41 Request METABOLIC PANEL, COMPREHENSIVE ([id number])Indication: Pain in unspecified joint On: 80-Fgg-348125:41 Request URINALYSIS, W/ MICRO ([id number])Indication: Benign essential hypertension On: 46-Jnc-908796:06 Request MICROALBUMIN: CREATININE RATIO ([id number]) AND ([id number])Indication: Benign essential hypertension On: 02-Oxx-149379:06 Request URINE CED CULTURE-IDENTIFICATN ([id number])Indication: Other abnormal finding of urine On: 95-Kch-460422:56 Request TSH ([id number])Indication: Controlled diabetes mellitus type II without complication On: :41 Request URINALYSIS, W/ MICRO ([id number])Indication: Benign essential hypertension On: :41 Request MICROALBUMIN: CREATININE RATIO ([id number]) AND ([id number])Indication: Benign essential hypertension On: :41 Request METABOLIC PANEL, COMPREHENSIVE ([id number])Indication: Benign essential hypertension On: :41 Request LIPID PANEL ([id number])Indication: Benign essential hypertension On: :41 Request CBC WITH MANUAL DIFF ([id number])Indication: Benign essential hypertension On: :41 Request TSH ([id number])Indication: Uncontrolled type II diabetes mellitus On: 51-Iff-550058:37 Request METABOLIC PANEL, COMPREHENSIVE ([id number])Indication: Uncontrolled type II diabetes mellitus On: :36 Request MICROALBUMIN: CREATININE RATIO ([id number]) AND ([id number])Indication: Uncontrolled type II diabetes mellitus On: 77-Fod-334585:36 Request LIPID PANEL ([id number])Indication: Uncontrolled type II diabetes mellitus On: :36 Request CBC WITH MANUAL DIFF ([id number])Indication: Uncontrolled type II diabetes mellitus On: :36 Request H. PYLORI BLD TEST UREASE NON-RAD ([id number])Indication: Epigastric pain On: 74-Atn-38496:09 Request Planned Encounters Medical; Injection - On: 28-Jul-2018 10:30 [facility] Nina Jiménez DO, DO, Kathleen Planned Procedures X-RAY OF KNEE, TWO VIEWS On: 21-Jul-2018 Intent ([id number])By: Nina Jiménez DO Comments: L Nina Jiménez DO X-RAY OF KNEE, TWO VIEWS On: 21-Jul-2018 Intent ([id number])By: Nina Jiménez DO Comments: R Nina Jiménez DO ELECTROCARDIOGRAM, COMPLETE (ECG) On: 21-Jul-2018 Intent ([id number])By: Nina Jiménez DO Comments: nsr no acute chg Nina Jiménez DO Bone Density StudyBy: Tino ALONSO, On: 03-Jul-2018 Intent Nina Stover DO MAMMOGRAM BREAST BILATERAL On: 03-Jul-2018 Intent SCREENING DIGITAL ([id number])By: Nina Jiménez DO, DO, Kathleen CT SCAN OF ABDOMEN AND PELVIS WITH On: 26-Jul-2017 Intent CONTRAST ([id number])By: Nina Jiménez DO, DO, Kathleen ELECTROCARDIOGRAM, COMPLETE (ECG) On: 26-Jul-2017 Intent ([id number])By: Nina Jiménez DO Comments: nsr no acute chg Nina Jiménez DO MAMMOGRAM, SCREENING, BOTH BREAST On: 01-Nov-2016 Intent ([id number])By: Nina Jiménez DO, DO, Kathleen Echo CompleteBy: Tino ALONSO, On: 18-May-2016 Intent Nina Stover DO Comments: dr mckee Holter Monitor 24 hrsBy: Tino On: 04-May-2016 Nina Jeffers DO, DO, Kathleen ELECTROCARDIOGRAM, COMPLETE (ECG) On: 04-May-2016 Intent ([id number])By: Nina Jiménez DO Comments: ? a fib vs atrial tachycardia - df rev as well -- thought maybe some flutter trying to breakthru where we see P waves -- pt asx and hemodynamically stable Nina Jiménez DO MRI ANKLE LEFT WO CONTRAST On: 14-Nov-2015 Intent ([id number])By: Nina Jiménez DO, DO, Kathleen Aerosol Treatment ([id number])By: [place] On: 08-Dec-2014 Intent Nette VASQUEZ EKG ([id number])By: Tino ALONSO, On: 16-Aug-2014 Intent Nina Stover DO Comments: nsr no acute chg Upper EndoscopyBy: Abdi WHITLOCK Kacey On: 09-Jul-2014 Intent E Endoscopy - OtherBy: Abdi WHITLOCK, On: 09-Jul-2014 Intent Emi MRI - Knee(s) - RightBy: Ciesa On: 09-Jul-2014 Intent CHINYEREKacey E Endoscopy - Small Bowel SeriesBy: On: 21-Jun-2014 Intent Abdi WHITLOCK Emi Nuclear Medicine - HIDA w/CPKBy: On: 21-Jun-2014 Intent Abdi WHITLOCK Emi Ultrasound - GallbladderBy: Ciesa On: 21-Jun-2014 Intent CHINYERE Kacey Sanchez Comments: in normal proceed with Hida scan Eprescribed prescriptions On: 13-Jan-2014 Intent (G8553)By: Nina Jiménez DO, DO, Kathleen Eprescribed prescriptions On: 18-Sep-2013 Intent (G8553)By: Sushila Harris Eprescribed prescriptions On: 08-Jul-2013 Intent (G8553)By: Geovanna Nuñez LPN EKG ([id number])By: Trisha Emery MD On: 03-Jul-2013 Intent Comments: see scanned document of test done to see results reviewed today with patient Eprescribed prescriptions On: 08-Apr-2013 Intent (G8553)By: Geovanna Nuñez LPN EKG ([id number])By: Tino ALONSO, On: 18-Aug-2012 Intent Nina Stover DO Comments: nsr no acute chg Eprescribed prescriptions On: 18-Aug-2012 Intent (G8553)By: Lidya Stephenson LPN Eprescribed prescriptions On: 08-May-2012 Intent (G8553)By: Nina Jiménez DO, DO, Kathleen Eprescribed prescriptions On: 08-May-2012 Intent (G8553)By: Geovanna Nuñez LPN CT - Neck (IV Contrast Needed)By: On: 28-Oct-2011 Intent Nina Jiménez DO, DO, Comments: follow up original image done at [facility]-- ( mri cervical spine) Nina EKG ([id number])By: Tino ALONSO, On: 25-Jul-2011 Intent Nina Stover DO Comments: NSR NO ACUTE CHG Ultrasound - PelvisBy: Tino ALONSO, On: 01-Dec-2010 Intent Nina Stover DO Ultrasound - PelvisBy: Tino ALONSO, On: 02-Aug-2010 Intent Nina Stover DO Comments: may do vaginal probe if need to EKG ([id number])By: Tino ALONSO, On: 16-Feb-2010 Intent Nina Stover DO Comments: nsr no acute chnages FLU VAC, SPLIT, >3 YEARS, On: 29-Jul-2008 Intent INTRAMUSC ([id number])By: Nina Jiménez DO, DO, Kathleen IMMUNIZ ADMNIN, 1 VAC, SNGL/COMBO On: 29-Jul-2008 Intent ([id number])By: Nina Jiménez DO Comments: lot # [id number]- 02/15/[id number]- 0.5ML chenderson tolerated well Tino DO, Nina IMMUNIZ ADMNIN, 1 VAC, SNGL/COMBO On: 29-Jul-2008 Intent ([id number])By: Nina Jiménez DO Comments: lot # [id number]- 12/27/[id number]- O.5ML chenderson tolerated well Tino DO, Nina PNEUM VAC ADLT/IMUMNOSPR, On: 29-Jul-2008 Intent SBC/INTRM ([id number])By: Nina Jiménez DO, DO, Kathleen EKG ([id number])By: Tino ALONSO, On: 29-Jul-2008 Intent Nina Stover DO MAMMOGRAM, SCREENING, BOTH BREASTS On: 04-Jun-2008 Intent ([id number])By: Jojo Santoyo Instructions Name Dates Details Non-smoker : How to access health information online Indication: Non-smoker Non-smoker : How to access health information online - Detail Indication: Non-smoker Non-smoker : Patient Instructions Indication: Non-smoker Physical exam WITHOUT abnormal findings (Renamed from Encounter for routine adult health examination without abnormal findings) : How to access health information online Indication: Physical exam WITHOUT abnormal findings (Renamed from Encounter for routine adult health examination without abnormal findings) Physical exam WITHOUT abnormal findings (Renamed from Encounter for routine adult health examination without abnormal findings) : How to access health information online - Detail Indication: Physical exam WITHOUT abnormal findings (Renamed from Encounter for routine adult health examination without abnormal findings) Physical exam WITHOUT abnormal findings (Renamed from Encounter for routine adult health examination without abnormal findings) : Patient Instructions Indication: Physical exam WITHOUT abnormal findings (Renamed from Encounter for routine adult health examination without abnormal findings) Non-smoker : How to access health information online Indication: Non-smoker Non-smoker : How to access health information online - Detail Indication: Non-smoker Non-smoker : Patient Instructions Indication: Non-smoker Non-smoker : How to access health information online Indication: Non-smoker Non-smoker : How to access health information online - Detail Indication: Non-smoker Non-smoker : Patient Instructions Indication: Non-smoker Controlled diabetes mellitus type II without complication : How to access health information online Indication: Controlled diabetes mellitus type II without complication Controlled diabetes mellitus type II without complication : How to access health information online - Detail Indication: Controlled diabetes mellitus type II without complication Controlled diabetes mellitus type II without complication : Patient Instructions Indication: Controlled diabetes mellitus type II without complication Non-smoker : How to access health information online Indication: Non-smoker Non-smoker : How to access health information online - Detail Indication: Non-smoker Non-smoker : Patient Instructions Indication: Non-smoker Uncontrolled type II diabetes mellitus : How to access health information online Indication: Uncontrolled type II diabetes mellitus Uncontrolled type II diabetes mellitus : How to access health information online - Detail Indication: Uncontrolled type II diabetes mellitus Uncontrolled type II diabetes mellitus : Patient Instructions Indication: Uncontrolled type II diabetes mellitus Non-smoker : How to access health information online Indication: Non-smoker Non-smoker : How to access health information online - Detail Indication: Non-smoker Non-smoker : Patient Instructions Indication: Non-smoker BMI 37.0-37.9, adult : How to access health information online Indication: BMI 37.0-37.9, adult BMI 37.0-37.9, adult : How to access health information online - Detail Indication: BMI 37.0-37.9, adult BMI 37.0-37.9, adult : Patient Instructions Indication: BMI 37.0-37.9, adult Atrial fibrillation, rapid : How to access health information online Indication: Atrial fibrillation, rapid Atrial fibrillation, rapid : How to access health information online - Detail Indication: Atrial fibrillation, rapid Controlled diabetes mellitus type II without complication : How to access health information online Indication: Controlled diabetes mellitus type II without complication Controlled diabetes mellitus type II without complication : How to access health information online - Detail Indication: Controlled diabetes mellitus type II without complication Controlled diabetes mellitus type II without complication : Patient Instructions Indication: Controlled diabetes mellitus type II without complication Controlled diabetes mellitus type II without complication : How to access health information online Indication: Controlled diabetes mellitus type II without complication Controlled diabetes mellitus type II without complication : How to access health information online - Detail Indication: Controlled diabetes mellitus type II without complication Controlled diabetes mellitus type II without complication : Patient Instructions Indication: Controlled diabetes mellitus type II without complication Achilles tendinitis of left lower extremity : How to access health information online Indication: Achilles tendinitis of left lower extremity Achilles tendinitis of left lower extremity : How to access health information online - Detail Indication: Achilles tendinitis of left lower extremity Achilles tendinitis of left lower extremity : Patient Instructions Indication: Achilles tendinitis of left lower extremity Uncontrolled type II diabetes mellitus : Patient Instructions Indication: Uncontrolled type II diabetes mellitus Benign essential hypertension : How to access health information online Indication: Benign essential hypertension Benign essential hypertension : How to access health information online - Detail Indication: Benign essential hypertension Benign essential hypertension : Patient Instructions Indication: Benign essential hypertension Knee pain, right : Patient Instructions Indication: Knee pain, right Uncontrolled type II diabetes mellitus : How to access health information online Indication: Uncontrolled type II diabetes mellitus Uncontrolled type II diabetes mellitus : How to access health information online - Detail Indication: Uncontrolled type II diabetes mellitus Uncontrolled type II diabetes mellitus : Patient Instructions Indication: Uncontrolled type II diabetes mellitus Hypercholesteremia : How to access health information online - Detail Indication: Hypercholesteremia Hypercholesteremia : How to access health information online Indication: Hypercholesteremia Controlled diabetes mellitus type II without complication : Patient Instructions Indication: Controlled diabetes mellitus type II without complication Controlled diabetes mellitus type II without complication : Patient Instructions Indication: Controlled diabetes mellitus type II without complication Diarrhea : Patient Instructions Indication: Diarrhea Controlled diabetes mellitus type II without complication : Patient Instructions Indication: Controlled diabetes mellitus type II without complication Controlled diabetes mellitus type II without complication : Patient Instructions Indication: Controlled diabetes mellitus type II without complication Gerd : Patient Instructions Indication: Gerd Uncontrolled type II diabetes mellitus : Patient Instructions Indication: Uncontrolled type II diabetes mellitus Controlled diabetes mellitus type II without complication : Patient Instructions Indication: Controlled diabetes mellitus type II without complication Encounters Office Visit On: 21-Jul-2018 11:59 Encounter Reason: Follow up for chronic medical issues - The patient feels well with minor complaints, has decreased energy level and is sleeping poorly. Patient has been non-compliant (i do not taking ANY meds on saturday End: 21-Jul-2018 16:32 ) with instructions. Current medication use: no side effects. Patient sleeps 7 hours per night. Impact of disease: no overall impact. Nutrition: balanced diet. The medical issues the patient is followin g up for include blood sugar issues. fasting blood sugars :.Encounter Diagnosis: BMI 38.0-38.9,adult, Non-smoker, Controlled diabetes mellitus type II without complication, Influenza vaccination declined (Renamed from Refused influenza vaccine), Benign essential hypertension (401.1), Atrial fibrillation, rapid, Chronic pain of both knees, Umbilical hernia without obstruction and without gangrene, Chronic anticoagulation, Nutritional counseling [facility] Office Visit On: 03-Jul-2018 11:40 Encounter Reason: Physical female exam - Last seen between 6-12 months ago. General health: feels well with minor complaints, has decreased energy level and is sleeping poorly. The patient's appetite is normal. Nutrition End: 03-Jul-2018 12:34 : normal/adequate. Exercises 0 days per week. Sleeps on average 6 hours per night. Elimination problems include urinary incontinence (has bladder ring). Safety measures include appropriate use of safety belts and home smoke detectors. Current emotional problems include anxiety and apprehension. screening, colonoscopy (age 52), screening, mammography (3 years ago), screening, Pap smear (Spring 2016) and screening, visual acuity (15 years ago). Encounter Diagnosis: Encounter for screening mammogram for breast cancer (Renamed from Encounter for screening mammogram for malignant neoplasm of breast), Menopausal state, Screening for colon cancer, Physical exam WITHOUT abnormal findings (Renamed from Encounter for routine adult health examination without abnormal findings), Influenza vaccination declined (Renamed from Refused influenza vaccine), Nutritional counseling [facility] Office Visit On: 20-Nov-2017 15:26 Encounter Reason: Follow up for chronic medical issues - The patient feels well with minor complaints and has decreased energy level. Patient has been compliant with instructions. Patient sleeps 5 hours per night. Impact End: 20-Nov-2017 16:11 of disease: emotional impact-mild. Nutrition: balanced diet and supplemental vitamins. The medical issues the patient is following up for include blood sugar issues, cardiac issues, depression, high bl ood pressure, high cholesterol, osteoarthritis and other (obesity, chronic pain, IBS).Encounter Diagnosis: Non-smoker, Controlled diabetes mellitus type II without complication, Benign essential hypertension (401.1), Lumbago, BMI 38.0-38.9,adult, Atrial fibrillation, rapid, Chronic anticoagulation, Hypercholesteremia, Gerd (530.81), Anxiety [facility] Office Visit On: 31-Jul-2017 11:56 Encounter Reason: Knee PainEncounter Diagnosis: BMI 38.0-38.9,adult, Non-smoker, Pain in unspecified joint, Osteoarthritis of left knee, unspecified osteoarthritis type End: 31-Jul-2017 12:52 [facility] Office Visit On: 26-Jul-2017 11:36 Encounter Reason: Follow up tests - Date: (07/22/17 labs)., [ADDITIONAL REASON] Follow up for chronic medical issues - The patient feels well with minor complai End: 26-Jul-2017 15:53 nts (pain in my right side-not knew), has good energy level and is sleeping well. Patient has been compliant with instructions. Current medication use: no side effects. Patient sleeps 4 (4-6) hours per night. Impact of disease: emotional impact-mild. The medical issues the patient is following up for include All identified problems below, blood sugar issues, gastric reflux, high cholesterol and other (IBS). Encounter Diagnosis: Benign essential hypertension (401.1), Controlled diabetes mellitus type II without complication, BMI 38.0-38.9,adult, Hypercholesteremia, Gerd (530.81), Atrial fibrillation, rapid, Chronic anticoagulation, Epigastric pain (789.06), RLQ abdominal pain [facility] Office Visit On: 22-Mar-2017 7:46 Encounter Reason: Follow up tests - Date: (03/14/17 labs)., [ADDITIONAL REASON] Follow up for chronic medical issues - The patient feels well with minor complai End: 22-Mar-2017 8:19 nts, has good energy level and is sleeping poorly. Patient has been compliant with instructions. Current medication use: no side effects and compliant with dosing regimen. Patient sleeps 4 hours per nig ht. Nutrition: balanced diet and supplemental vitamins. The medical issues the patient is following up for include All identified problems below, blood sugar issues, high blood pressure, high cholestero l and other. blood pressure range : and weight :. Encounter Diagnosis: BMI 37.0- 37.9, adult, Non-smoker, Controlled diabetes mellitus type II without complication, Hypercholesteremia, Atrial fibrillation, rapid, Benign essential hypertension (401.1) , Anxiety, Unspecified osteoarthritis, unspecified site, Gerd (530.81), Chronic anticoagulation, Chronic epigastric pain [facility] Phone Encounter On: 14-Mar-2017 10:08 Encounter Reason: Follow up for chronic medical issues - The patient does not feel well, has decreased energy level and is sleeping poorly. Patient has been compliant with instructions. Current medication use: no side ef End: 14-Mar-2017 10:27 fects and compliant with dosing regimen. Patient sleeps 5 hours per night. Nutrition: balanced diet and supplemental vitamins. The medical issues the patient is following up for include All identified p roblems below, blood sugar issues, high blood pressure and high cholesterol. blood pressure range :, fasting blood sugars : and weight :.Encounter Diagnosis: Uncontrolled type II diabetes mellitus [facility] Office Visit On: 04-Feb-2017 15:12 Encounter Reason: Knee Pain - This condition occurred without any known injury. The injury involved the left knee and right knee.Encounter Diagnosis: BMI 37.0- 37.9, adult, Non-smoker, Unspecified osteoarthritis, unspecified site, End: 04-Feb-2017 17:21 Chronic anticoagulation, Chronic pain of both knees [facility] Office Visit On: 26-Dec-2016 14:09 Encounter Reason: Knee PainEncounter Diagnosis: Acute left ankle pain, Unspecified osteoarthritis, unspecified site End: 26-Dec-2016 16:30 [facility] Visit On: 12-Dec-2016 9:42 Encounter Reason: Follow up for chronic medical issues - The patient does not feel well, has decreased energy level and is sleeping poorly. Patient has been compliant with instructions. Current medication use: no side ef End: 12-Dec-2016 10:35 fects and compliant with dosing regimen. Patient sleeps 5 hours per night. Nutrition: balanced diet and supplemental vitamins. The medical issues the patient is following up for include All identified p roblems below, blood sugar issues, high blood pressure and high cholesterol. blood pressure range :, fasting blood sugars : and weight :.Encounter Diagnosis: BMI 37.0-37.9, adult, Non-smoker, Atrial fibrillation, rapid, Chronic anticoagulation, Hypercholesteremia, Benign essential hypertension (401.1), Gerd (530.81), Uncontrolled type II diabetes mellitus, Unspecified osteoarthritis, unspecified site, Anxiety [facility] Phone Encounter On: 01-Nov-2016 13:55 Encounter Diagnosis: Encounter for screening mammogram for breast cancer (Renamed from Encounter for screening mammogram for malignant neoplasm of breast) End: 01-Nov-2016 13:57 [facility] Office Visit On: 23-Aug-2016 8:45 Encounter Reason: Follow up tests - Date: (07/27/16 labs)., [ADDITIONAL REASON] Follow up for chronic medical issues - The patient feels well with minor complai End: 23-Aug-2016 9:40 nts (knee pain), has decreased energy level and is sleeping poorly. Patient has been compliant with instructions. Current medication use: no side effects and compliant with dosing regimen. Patient sleep s 4 hours per night. Nutrition: inappropriate diet and supplemental vitamins. The medical issues the patient is following up for include All identified problems below, cardiac issues, high blood pressure, high cholesterol and other. weight :. Encounter Diagnosis: Non-smoker, BMI 37.0-37.9, adult, Atrial fibrillation, rapid, Irritable bowel syndrome (564.1), Benign essential hypertension (401.1), Hypercholesteremia, Gerd (530.81), Controlled diabetes mellitus type II without complication, Chronic anticoagulation, Ingrown right big toenail, Bladder prolapse, female, acquired [facility] Phone Encounter On: 21-May-2016 14:03 Encounter Diagnosis: High potassium End: 21-May-2016 14:06 [facility] Office Visit On: 18-May-2016 11:31 Encounter Reason: Follow up tests - Date: (holtor monitor).Encounter Diagnosis: Atrial fibrillation, rapid, Non-smoker End: 18-May-2016 12:42 [facility] Office Visit On: 04-May-2016 9:42 Encounter Reason: Follow up tests - Date: (04/27/16 labs)., [ADDITIONAL REASON] Follow up for chronic medical issues - The patient feels well with minor complai End: 04-May-2016 12:51 nts, has decreased energy level and is sleeping poorly. Patient has been compliant with instructions. Current medication use: compliant with dosing regimen. Patient sleeps 3 hours per night. Nutrition: balanced diet and supplemental vitamins. The medical issues the patient is following up for include All identified problems below, blood sugar issues, high blood pressure and high cholesterol. blood pre ssure range :, fasting blood sugars : and weight :. Encounter Diagnosis: Controlled diabetes mellitus type II without complication, Benign essential hypertension (401.1), Hypercholesteremia, Gerd (530.81), Chronic epigastric pain, Abnormal EKG [facility] Office Visit On: 12-Jan-2016 14:02 Encounter Reason: Follow up for chronic medical issues - The patient does not feel well, has decreased energy level and is sleeping poorly. Patient has been compliant with instructions. Current medication use: no side ef End: 12-Jan-2016 15:39 fects and compliant with dosing regimen. Patient sleeps 4 hours per night. Nutrition: balanced diet and supplemental vitamins. The medical issues the patient is following up for include All identified p roblems below, blood sugar issues, high blood pressure and high cholesterol. blood pressure range :, fasting blood sugars : and weight :.Encounter Diagnosis: Controlled diabetes mellitus type II without complication, Non-smoker, BMI 33.0-33.9,adult, Irritable bowel syndrome (564.1), Gerd (530.81), Hypercholesteremia, Benign essential hypertension (401.1), Achilles tendinitis of left lower extremity, Cervical radiculopathy (723.4) [facility] Phone Encounter On: 17-Nov-2015 12:44 [facility] End: 17-Nov-2015 12:48 Office Visit On: 14-Nov-2015 13:34 Encounter Reason: Ankle Pain - This condition occurred following a specific injury. The patient sustained an injury to the left ankle. Symptoms include ankle pain, swelling, decreased range of motion and difficulty beari End: 14-Nov-2015 15:23 ng weight. Symptoms are located in the left ankle. The patient describes the pain as aching. The symptoms occur constantly. The patient describes symptoms as moderate in severity.Encounter Diagnosis: Pneumococcal vaccination given, Achilles tendinitis of left lower extremity, Acute left ankle pain [facility] Office Visit On: 02-Nov-2015 8:24 Encounter Reason: Ankle Pain - This condition occurred following a specific injury. The patient sustained an injury to the left ankle. Symptoms include ankle pain, swelling, decreased range of motion and difficulty beari End: 02-Nov-2015 10:40 ng weight. Symptoms are located in the left ankle. The patient describes the pain as aching. The symptoms occur constantly. The patient describes symptoms as moderate in severity.Encounter Diagnosis: Achilles tendinitis of left lower extremity, Stress reaction [facility] Office Visit On: 12-Oct-2015 8:53 Encounter Reason: Follow up for chronic medical issues - The patient does not feel well, has decreased energy level and is sleeping poorly. Patient has been compliant with instructions. Current medication use: no side ef End: 12-Oct-2015 10:03 fects and compliant with dosing regimen. Nutrition: inappropriate diet. The medical issues the patient is following up for include All identified problems below, blood sugar issues, high blood pressure, high cholesterol and other. weight :. Encounter Diagnosis: Uncontrolled type II diabetes mellitus, Unspecified osteoarthritis, unspecified site, Hypercholesteremia, Gerd (530.81), Stress reaction, Hypertension (401.9), Irritable bowel syndrome (564.1) [facility] Office Visit On: 08-Dec-2014 10:33 Encounter Reason: Cough - The last clinic visit was 5 day(s) ago. Symptoms include cough, wheezing, fever, runny nose, stuffy nose and sore throat. The cough is described as productive (greenish). Cough onset was sudden End: 08-Dec-2014 11:11 5 day(s) ago. There is no known event that preceded symptom onset. The cough occurs constantly. Symptoms are described as moderate in severity and worsening. Symptoms are exacerbated by lying down. Asso ciated symptoms include headache. Current treatment includes decongestants., [ADDITIONAL REASON] Flu Like Symptoms - The last clinic visit was 5 day(s) ago. Symptoms include fev er, chills, body aches, nasal congestion, runny nose, scratchy throat, sore throat, productive cough, facial pressure and headache. Onset was sudden 5 day(s) ago. There is no known event that preceded s ymptom onset. The symptoms occur constantly. The patient describes this as moderate in severity and unchanged. The patient is not currently being treated for this problem. Previous presentation included nasal congestion, runny nose, postnasal drainage, scratchy throat, sore throat, productive cough, fever and chills. Encounter Diagnosis: Cough, Flu-like symptoms, Bronchitis [facility] Office Visit On: 16-Aug-2014 10:49 Encounter Reason: Follow up for chronic medical issues - The patient feels well with minor complaints (has a lot of frustration in life right not), has decreased energy level and is sleeping poorly. Patient has been co End: 16-Aug-2014 13:02 mpliant with instructions. Current medication use: no side effects and compliant with dosing regimen. Patient sleeps 4 hours per night. Nutrition: balanced diet and supplemental vitamins. The medical is sues the patient is following up for include All identified problems below, blood sugar issues, high blood pressure and high cholesterol. blood pressure range :, fasting blood sugars : and weight :.Encounter Diagnosis: Benign essential hypertension (401.1), Type II Diabetes,controlled (250.00), Hypercholesteremia (272.0), Osteoarthritis, Unspecified Whether Generalized or Localized, Involving other Specified Sites (715.98), Gerd (530.81), Irritable bowel syndrome (564.1) [facility] Office Visit On: 09-Jul-2014 8:25 Encounter Reason: Follow up tests - Diagnostic tests include other and ultrasound. Date: (07/02-07/06).Encounter Diagnosis: Knee pain, right, Epigastric pain (789.06), Gerd (530.81) End: 09-Jul-2014 10:47 [facility] Annotation/Addendum On: 07-Jul-2014 16:25 Encounter Diagnosis: Unspecified Diagnosis End: 07-Jul-2014 16:31 [facility] Annotation/Addendum On: 07-Jul-2014 13:21 Encounter Diagnosis: Unspecified Diagnosis End: 07-Jul-2014 15:42 [facility] Office Visit On: 21-Jun-2014 14:24 Encounter Reason: Back Pain - The injury involved the upper back.Encounter Diagnosis: Back pain, Indigestion, Benign essential hypertension (401.1), NSAID long-term use, Abdominal Pain,Unspecified Site (789.00) End: 21-Jun-2014 15:11 [facility] Office Visit On: 24-May-2014 13:26 Encounter Reason: Follow up for diabetes/glucose intolerance - The patient does not feel well, has decreased energy level and is sleeping poorly. Patient has been compliant with instructions., End: 24-May-2014 14:13 [ADDITIONAL REASON] Follow up tests - Date: (05/05/14 labs). Encounter Diagnosis: Cellulitis, Type II Diabetes,uncontrolled (250.02), Hypercholesteremia (272.0), DISPLACEMENT, CERVICAL DISC W/O MYELOPATHY (722.0) [facility] Office Visit On: 26-Apr-2014 14:19 Encounter Reason: Follow up for chronic medical issues - The patient does not feel well, has decreased energy level and is sleeping well. Patient has been compliant with instructions. Current medication use: no side effe End: 26-Apr-2014 16:59 cts and compliant with dosing regimen. Patient sleeps 4 hours per night. Nutrition: balanced diet and supplemental vitamins. The medical issues the patient is following up for include All identified pro blems below, blood sugar issues, high blood pressure and high cholesterol. blood pressure range :, fasting blood sugars : and weight :.Encounter Diagnosis: Type II Diabetes,controlled (250.00), Hypercholesteremia (272.0), Benign essential hypertension (401.1), Gerd (530.81), Finger infection, Cellulitis [facility] Office Visit On: 13-Jan-2014 11:19 Encounter Reason: Follow up for chronic medical issues - The patient does not feel well, has decreased energy level and is sleeping poorly. Patient has been compliant with instructions. Current medication use: no side ef End: 13-Jan-2014 12:36 fects and compliant with dosing regimen. Nutrition: balanced diet. The medical issues the patient is following up for include All identified problems below, blood sugar issues, gastric reflux and high b lood pressure. blood pressure range :, fasting blood sugars : and weight :.Encounter Diagnosis: Type II Diabetes,controlled (250.00), Benign essential hypertension (401.1), Hypercholesteremia (272.0), Gerd (530.81), Cellulitis [facility] Office Visit On: 19-Oct-2013 17:26 Encounter Diagnosis: Type II Diabetes,uncontrolled (250.02) End: 20-Oct-2013 10:06 [facility] Visit On: 12-Oct-2013 12:47 Encounter Reason: Follow up for chronic medical issues - The patient feels well with minor complaints, has decreased energy level and is sleeping poorly. Patient has been compliant with instructions. Current medication u End: 12-Oct-2013 13:54 se: no side effects and compliant with dosing regimen. Patient sleeps 6 hours per night. Nutrition: balanced diet. The medical issues the patient is following up for include All identified problems belo w, blood sugar issues, high blood pressure and high cholesterol. blood pressure range :, fasting blood sugars : and weight :.Encounter Diagnosis: Hypercholesteremia (272.0), Benign essential hypertension (401.1), Gerd (530.81), Type II Diabetes,uncontrolled (250.02) [facility] Office Visit On: 18-Sep-2013 12:01 Encounter Diagnosis: Diarrhea, Abdominal Pain,Unspecified Site (789.00), Drug side effects End: 18-Sep-2013 12:54 [facility] Visit On: 08-Jul-2013 13:08 Encounter Reason: Follow up for chronic medical issues - The patient feels well with minor complaints, has good energy level and is sleeping well. Patient has been compliant with instructions. Current medication use: no End: 08-Jul-2013 15:11 side effects and compliant with dosing regimen. Patient sleeps 6 hours per night. Nutrition: balanced diet. The medical issues the patient is following up for include All identified problems below, bloo d sugar issues, high blood pressure and high cholesterol. blood pressure range : and fasting blood sugars :.Encounter Diagnosis: Type II Diabetes,controlled (250.00), Gerd (530.81), Hypercholesteremia (272.0), Benign essential hypertension (401.1), Osteoarthritis, Unspecified Whether Generalized or Localized, Involving other Specified Sites (715.98) [facility] Office Visit On: 03-Jul-2013 14:58 Encounter Diagnosis: CHEST PAIN (786.59), Viral Infection, Unspecified (079.99), Hypertension (401.9) End: 03-Jul-2013 15:47 [facility] Office Visit On: 08-Apr-2013 13:00 Encounter Reason: Follow up for chronic medical issues - The patient feels well with minor complaints, has good energy level and is sleeping well. Patient has been compliant with instructions. Current medication use: no End: 08-Apr-2013 14:00 side effects and compliant with dosing regimen. Patient sleeps 6 hours per night. Nutrition: balanced diet and supplemental vitamins. The medical issues the patient is following up for include All ident ified problems below, blood sugar issues, high blood pressure and high cholesterol. blood pressure range :, fasting blood sugars : and weight :.Encounter Diagnosis: Type II Diabetes,controlled (250.00), Hypertension (401.9), Gerd (530.81), Irritable bowel syndrome (564.1) [facility] Annotation/Addendum On: 08-Jan-2013 14:00 Encounter Diagnosis: Type II Diabetes,controlled (250.00) End: 08-Jan-2013 14:03 [facility] Office Visit On: 16-Dec-2012 12:42 Encounter Reason: Follow up for chronic medical issues - The patient feels well with minor complaints, has good energy level and is sleeping poorly. Patient has been compliant with instructions. Current medication use: n End: 16-Dec-2012 13:31 o side effects and compliant with dosing regimen. Patient sleeps 4 hours per night. Nutrition: balanced diet and supplemental vitamins. The medical issues the patient is following up for include All karma ntified problems below, blood sugar issues, gastric reflux, high blood pressure and high cholesterol. blood pressure range : and fasting blood sugars :., [ADDITIONAL REASON] Follow up tests - Date: (12/12/12 labs). Encounter Diagnosis: Type II Diabetes,controlled (250.00), Hypertension (401.9), Hypercholesteremia (272.0), ARTHRALGIAS 719.40, Gerd (530.81) [facility] Phone Encounter On: 05-Nov-2012 16:40 Encounter Diagnosis: ARTHRALGIAS 719.40 End: 05-Nov-2012 16:43 [facility] Office Visit On: 18-Aug-2012 12:35 Encounter Reason: Follow up for chronic medical issues - The patient feels well with minor complaints, has decreased energy level and is sleeping poorly. Patient has been compliant with instructions. Current medication u End: 18-Aug-2012 13:10 se: no side effects and compliant with dosing regimen. Patient sleeps 6 hours per night. Nutrition: balanced diet and supplemental vitamins. The medical issues the patient is following up for include Al l identified problems below, blood sugar issues and high blood pressure.Encounter Diagnosis: Hypertension (401.9), Gerd (530.81), Hypercholesteremia (272.0), Type II Diabetes,uncontrolled (250.02) [facility] Phone Encounter On: 07-Aug-2012 8:56 Encounter Reason: Nurse procedure visit - Reason for visit: other.Encounter Diagnosis: Hypertension (401.9) End: 07-Aug-2012 13:15 [facility] Office Visit On: 08-May-2012 8:54 Encounter Reason: Follow up tests - Date: (04/30/12 labs)., [ADDITIONAL REASON] Follow up for chronic medical issues - The patient feels well with minor complai End: 08-May-2012 9:40 nts, has decreased energy level and is sleeping poorly. Patient has been compliant with instructions. Current medication use: no side effects and compliant with dosing regimen. Patient sleeps 6 hours pe r night. Nutrition: balanced diet and supplemental vitamins. The medical issues the patient is following up for include All identified problems below, blood sugar issues and high blood pressure. Encounter Diagnosis: Type II Diabetes,controlled (250.00), Hypercholesteremia (272.0), Benign essential hypertension (401.1), DISPLACEMENT, CERVICAL DISC W/O MYELOPATHY (722.0), Irritable bowel syndrome (564.1), LYMPHADENITIS, ACUTE (683.), Dysfunctional uterine bleeding (626.8), Gerd (530.81) [facility] Phone Encounter On: 01-May-2012 14:55 Encounter Diagnosis: Abnormal Urine (791.9) End: 01-May-2012 14:57 [facility] Office Visit On: 07-Feb-2012 10:01 Encounter Reason: Follow up for chronic medical issues - The patient feels well with minor complaints, has good energy level and is sleeping well. Patient has been compliant with instructions. Current medication use: no End: 07-Feb-2012 11:15 side effects and compliant with dosing regimen. Patient sleeps 6 hours per night. Nutrition: balanced diet and supplemental vitamins. The medical issues the patient is following up for include All ident ified problems below, blood sugar issues, high blood pressure and high cholesterol. blood pressure range :, fasting blood sugars : and weight :.Encounter Diagnosis: Type II Diabetes,controlled (250.00), Benign essential hypertension (401.1), Hypercholesteremia (272.0), Osteoarthritis, Unspecified Whether Generalized or Localized, Involving other Specified Sites (715.98) [facility] Office Visit On: 07-Nov-2011 13:09 Encounter Reason: Follow up for chronic medical issues - The patient feels well with minor complaints, has good energy level and is sleeping well. Patient has been compliant with instructions. Current medication use: no End: 07-Nov-2011 13:45 side effects and compliant with dosing regimen. Patient sleeps 7 hours per night. Nutrition: balanced diet and supplemental vitamins. The medical issues the patient is following up for include All ident ified problems below, blood sugar issues and high blood pressure. blood pressure range :.Encounter Diagnosis: Type II Diabetes,controlled (250.00), Benign essential hypertension (401.1), Hypercholesteremia (272.0), DISPLACEMENT, CERVICAL DISC W/O MYELOPATHY (722.0), Osteoarthritis, Unspecified Whether Generalized or Localized, Involving other Specified Sites (715.98) [facility] Office Visit On: 29-Aug-2011 14:52 Encounter Reason: Follow up ER - Reason for hospitalization note: (necka dn arm pain -- 1.7.12).Encounter Diagnosis: Unspecified Diagnosis, Benign essential hypertension (401.1), Cervical radiculopathy (723.4), End: 29-Aug-2011 15:40 DISPLACEMENT, CERVICAL DISC W/O MYELOPATHY (722.0), LYMPHADENITIS, ACUTE (683.) [facility] Office Visit On: 25-Jul-2011 13:51 Encounter Reason: Follow up tests, [ADDITIONAL REASON] Follow up for chronic medical issues - The patient does not feel well, has decreased energy level and is sleeping poorly. Patient has been compliant with instructions. Current medic End: 25-Jul-2011 16:59 ation use: no side effects and compliant with dosing regimen. Nutrition: balanced diet and no supplemental vitamins & iron. The medical issues the patient is following up for include All identified problems below, high blood pressure and high cholesterol. Encounter Diagnosis: Type II Diabetes,uncontrolled (250.02), Benign essential hypertension (401.1), Hypercholesteremia (272.0), Osteoarthritis, Unspecified Whether Generalized or Localized, Involving other Specified Sites (715.98) [facility] Lab Order On: 18-Jun-2011 14:00 Encounter Diagnosis: Hypercholesteremia (272.0), Benign essential hypertension (401.1), Type II Diabetes,uncontrolled (250.02) End: 18-Jun-2011 14:02 [facility] Office Visit On: 16-Oct-2010 13:41 Encounter Reason: Follow up for chronic medical issues - The patient feels well with minor complaints, has good energy level and is sleeping well. Patient has been compliant with instructions. Current medication use: no End: 16-Oct-2010 15:20 side effects and compliant with dosing regimen. Patient sleeps 7 hours per night. Nutrition: balanced diet and supplemental vitamins. The medical issues the patient is following up for include All ident ified problems below, blood sugar issues, gastric reflux and high blood pressure. fasting blood sugars : and weight :.Encounter Diagnosis: Type II Diabetes,controlled (250.00), Benign essential hypertension (401.1), Hypercholesteremia (272.0), Irritable bowel syndrome (564.1) [facility] Office Visit On: 23-Aug-2010 10:03 Encounter Reason: Sinusitis - The last clinic visit was 1 week(s) ago. Symptoms include nasal congestion and cough. Onset was sudden 1 week(s) ago. The patient describes this as mild and unchanged., End: 23-Aug-2010 11:35 [ADDITIONAL REASON] Follow up tests - Diagnostic tests include ultrasound (08-09-10 pelvic us). Encounter Diagnosis: Laryngitis (464.00), SINUSITIS, ACUTE NOS (461.9), Uterine fibroid (218.9), ABNORMAL PELIVC ULTRASOUND (793.5), Dysfunctional uterine bleeding (626.8) [facility] Office Visit On: 02-Aug-2010 14:03 Encounter Reason: Vaginal Discharge - The last clinic visit was 1 week(s) ago. Symptoms include vaginal discharge. The patient describes the vaginal discharge as bloody. The patient describes this as mild and unchanged.Encounter Diagnosis: End: 02-Aug-2010 14:30 Dysfunctional uterine bleeding (626.8) [facility] Office Visit On: 26-Jun-2010 8:11 Encounter Reason: Follow up for chronic medical issues - The patient feels well with minor complaints, has good energy level and is sleeping well. Patient has been compliant with instructions. Current medication use: no End: 26-Jun-2010 8:45 side effects and compliant with dosing regimen. Patient sleeps 7 hours per night. Nutrition: balanced diet and supplemental vitamins. The medical issues the patient is following up for include All ident ified problems below, blood sugar issues, gastric reflux and high blood pressure. fasting blood sugars : and weight :.Encounter Diagnosis: Type II Diabetes,controlled (250.00), Benign essential hypertension (401.1), Osteoarthritis, Unspecified Whether Generalized or Localized, Involving other Specified Sites (715.98), Stress Reaction (308.4), Hypercholesteremia (272.0) [facility] Office Visit On: 30-Mar-2010 8:05 Encounter Reason: Follow up Meds - The patient feels well with minor complaints ,has good energy level and is sleeping well. Patient has been compliant with instructions. Current medication use: no side effects and compl End: 30-Mar-2010 9:06 iant with dosing regimen. Patient sleeps 6 hours per night. Nutrition: balanced diet. , [ADDITIONAL REASON] Follow up Hypertension - blood pressure range : (130/80). Encounter Diagnosis: Benign essential hypertension (401.1), Osteoarthritis, Unspecified Whether Generalized or Localized, Involving other Specified Sites (715.98), Poison lb (692.6) [facility] Office Visit On: 16-Feb-2010 12:45 Encounter Reason: Follow up for chronic medical issues - The patient feels well with minor complaints (headaches- seem to be triggered by stress and blood pressure). Patient has been compliant with instructions. Current End: 16-Feb-2010 15:26 medication use: no side effects ,compliant with dosing regimen and considered effective by patient. Patient sleeps 5 hours per night. Nutrition: poor nutrition and supplemental vitamins. The medical iss ues the patient is following up for include All identified problems below ,blood sugar issues and high blood pressure. blood pressure range : (130-140's/85-100) and fasting blood sugars : (70-80). Encounter Diagnosis: Type II Diabetes,controlled (250.00), Benign essential hypertension (401.1) [facility] Office Visit On: 30-Jul-2008 9:37 Encounter Diagnosis: Type II Diabetes,uncontrolled (250.02) End: 30-Jul-2008 10:16 [facility] Office Visit On: 29-Jul-2008 15:12 Encounter Reason: Follow up, Laboratory Test Results - Date: (07-26-08). , [ADDITIONAL REASON] Follow up tests - Date: (07-21-08). Encounter Diagnosis: Breast mass (611.72), Type II Diabetes,uncontrolled (250.02), End: 30-Jul-2008 7:13 Need for prophylactic vaccination and inoculation against influenza (V04.81) [facility] Office Visit On: 28-Jul-2008 13:39 [facility] End: 28-Jul-2008 13:40 Historical Summary On: 08-Jun-2008 11:03 [facility] End: 08-Jun-2008 11:04 Phone Encounter On: 04-Jun-2008 13:40 Encounter Diagnosis: Screening for breast cancer (V76.10) End: 04-Jun-2008 14:20 [facility] Office Visit On: 04-Jun-2008 7:22 Encounter Reason: Abdominal pain - The onset of the pain has been gradual and has been occurring in a persistent (more with her periods) pattern for 6 months. The course has been recurrent. The pain is described as a mod End: 04-Jun-2008 10:41 erate crampy. The pain is described as being located in the lower abdomen. The pain radiates to the back. The symptoms are aggravated by motion (she has been doing alot of heavy lifting carring wood or splitting wood. Then she will notice that her periods are heavier). The symptoms have no relieving factors. Encounter Diagnosis: Epigastric pain (789.06), Abdominal Pain,Unspecified Site (789.00) [facility]; dia guarantor
--- OUTSIDE RECORDS SUMMARY | 2018-09-13 21:01 | XMS RPT_ITS | Continuity of Care Document ---
:1955 Author Organization [facility] Address [facility] [address] [address] Phone Care Team Providers Name Role Phone Nina Jiménez DO Unavailable Yari Huddleston Unavailable Dr. Roxana Newman MD Unavailable Juani Sahu Unavailable Haile Mckee MD Unavailable JENNYFER Flores Unavailable Unavailable CHRISTINA Nuñez Unavailable Unavailable Unavailable [...] Chronic pain of both knees (M25.561, 719.46) Status: Active Controlled diabetes mellitus type II [...] Ultrasound scan abnormal (R93.8, 793.99) Status: Active Uncontrolled type II diabetes mellitus [...] days Quantity: 180 {Tablet} Refills: 3 Ordered:25-Sep-2017 Nathaly Jiménez DO, DO, Kathleen Start : 25-Sep-2017 Active Comments:it does not give as bad diarrhea like omeprazole does Xarelto 20 MG Oral Tablet 1 (one) Tablet qd for 90 days Quantity: 90 {Tablet} Refills: 1 Ordered:14-Jul-2018 Nathaly Jiménez DO, DO, Kathleen Start : 14-Jul-2018 Active Aspirin EC 325 [...] days Quantity: 20 {Tablet} Refills: 0 Ordered:26-Apr-2014 Nathaly Jiménez DO, DO, Kathleen Start : 26-Apr-2014 End : 06-May-2014 Inactive [...] : 08-Jun-2008 Discontinued Comments:This order discontinued per [facility]. PENLAC, 8% (External Solution) apply Solution topically [...] VAC ADLT/IMUMNOSPR, Date: 14-Nov-2015 Completed 14-Nov-2015 SBC/INTRM (15157) Comments: Lot:[id number]:04/05/17Dose:0.5mgRoute:imSite:david Boo By:WILLI signed Cardioversion Completed Comments: 2015 Colonoscopy Completed Comments: 07-27-08 - Diverticulitis Diverticulitis (562.11) Completed Comments: Colonoscopy 07-27-08 lt finger sx Completed Comments: 03/01 Date Value Details 22-Apr-2018 12 Lead Electrocardiogram Result: Comments: See Note; NOTES: [facility] Cardiovascular Services [address] [place] [address] 12 Lead EKG 04/19/18 1456 MR#: [id number] Acct: [id number] Name: NINA AYON ep #: [id number] : 1955 62 From: Bright Peng MD [...] Borderline ECG Confirmed by BRIGHT PENG ([id number]), fan mail editor OBDULIO PURDY ([id number]) on 04/22/2018 1:27:45 PM Referred By: JOHN Confirmed By: BRIGHT PENG 04/22/18 1327 Date Bright Peng MD CC: Nina Jiménez DO; Cedric Sylvester MD Signed 19-Apr-2018 Emergency Department Summary Result: Comments: See Note; NOTES: [facility] Medical Records Department [address] [place] [address] Emergency Department Summary 04/19/18 1653 MR#: [id number] Acct: [id number] Name: NINA AYON Rep #: [id number] : 1955 62 From: Cedric Sylvester MD [...] pleuritic component This note was generated with [employer] dictation software. It may contain incorrect words, spelling, and p unctuation that were not noted in review of the chart prior to signing ED Disposition - Plan for ED Patient: Disposition: Home or Assisted Living Chief Complaint: Chest Pain Instructions: ED Chest Pa in NonCardiac, ED Chest Pain Pleurisy Prescriptions: Prednisone 40 mg PO DAILY #10 tab Referrals: Nina Jiménez DO [Primary Care Provider] - 3-5 Days if not improving What to do if you have Proble ms For any increased pain, shortness of breath, bleeding, nausea or vomiting, chest pain, or any unexpected problems, contact your Primary Care Provider. Call [facility] ([phone]) or report to the closest Emergency Room. Call 911 if necessary. 04/19/18 1701 <Electronically signed by Cedric Sylvester MD> Date Cedric Sylvester MD Cosig ner Signature (If Indicated): Date CC: Nina Jiménez DO 19-Apr-2018 Chest 1 View (Portable) Result: Comments: See Note; NOTES: [facility] Imaging Services [address] [place] [address] Chest 1 View (Portable) MR#: [id number] Acct: [id number] Name: NINA AYON Rep #: [id number] : 1955 F 62 From: Dolly Hardy MD PCP: Nina Jiménez DO Status: PRE ER Study: Chest 1 View (Portable) Date of Exam: 04/19/18 Exam# [id number] Ordering Dr: Cedric Sylvester MD STUDY: X-RAY [...] CC: Nina Jiménez DO; Cedric Sylvester MD Memory Care Director: Signed 10-Feb-2018 Cardiology Visit Report Result: Comments: See Note; NOTES: [facility] [address] [place] [address] OFFICE VISIT Date of Service: 02/10/18 MR#: [id number] Acct: [id number] Name: NINA AYON Rep #: [id number] : 1955 Provider: KATHY Snider Age/Sex: 62/F Location: [facility] Status: Signed HPI HPI Details: NINA AYON, [...] pain- Throbbing ) Pain scale (1-10): 7 Raudel milner pneumococcal vaccine Allergy (Verified 01/09/18 10:13) Unknown [...] insufficiency (Chronic) Paroxysmal atr ial fibrillation (Acute) custodial (current) use of anticoagulants (Chronic) GERD (gastroesophageal [...] underwent a transthoracic echocardiogram on 11/07/2016 at [facility]. The results are as noted below. 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 MINIMUM HEART RATE WAS 92 BPM AT [...] We will not make any medication regimen kaycee walters. 3. Hyperlipidemia, unspecified hyperlipidemia type E78.5 Plan [...] We will continue to monitor this. 7. custodial (current) use of anticoagulants Z79.01 Plan If [...] when reviewing the office note prior to fara galarza. Coding Level of Care Code Off vis,est,level 3 Diagnoses Abnormal stress test R94.39 Essential hypertension I10 Hyperlipidemia, unspecified hyperlipidemia type E78.5 Nonrheumatic mitral valve re gurgitation I34.0 Nonrheumatic tricuspid (valve) insufficiency I36.1 Paroxysmal atrial fibrillation I48.0 custodial (current) use of anticoagulants Z79.01 Anxiety F41.9 Coding Level of Care Code Off v is,est,level 3 Diagnoses Abnormal stress test R94.39 Essential hypertension I10 Hyperlipidemia, unspecified hyperlipidemia type E78.5 Nonrheumatic mitral valve regurgitation I34.0 Nonrheumatic tricuspi d (valve) insufficiency I36.1 Paroxysmal atrial fibrillation I48.0 custodial (current) use of anticoagulants Z79.01 Anxiety F41.9 02/10/18 1506 <Electronically signed by Dusty MORALES& #62; Date Dusty MORALES Cosigner Signature: Date (if applicable) CC: Nian Jiménez DO 10-Feb-2018 Chest PA and Lateral Result: Comments: See Note; NOTES: [facility] Imaging Services [address] [place] [address] Chest PA and Lateral MR#: [id number] Acct: [id number] Name: GABOJINNINA B Rep #: [id number] : 1955 F 62 From: Leslye Sue MD PCP: Nina Jiménez DO Status: REG CLI Study: Chest PA and Lateral Date of Exam: 02/10/18 Exam# [id number] Ordering Dr: Haile Mckee MD STUDY: X-RA [...] CC: Nina Jiménez DO; Haile Mckee MD Memory Care Director: Signed 04-Feb-2018 Stress Report Result: Comments: See Note; NOTES: [facility] Cardiovascular Services [address] [place] [address] MR#: [id number] Acct: [id number] Name: GABONINA B Rep #: [id number] : 62 From: Haile Mckee MD Primary [...] and occasional PVCs during recovery. The functional [facility] was considered average. There was no [...] %. Thi s note was generated with Retroto[employer] software. It may contain incorrect words, spelling, and punctuation that were not noted in checking the note before signing. 02/04/18 0548 <Randy person signed by Haile Mckee MD> Date Haile Mckee MD CC: Nina Jiménez DO; Haile Mckee MD Date Dictated: 02/04/18 1354 Date Transcribed: 02/04/181353 Memory Care Director: PM Signed 09-Jan-2018 Cardiology Visit Report Result: Comments: See Note; NOTES: [facility] [address] [place] [address] OFFICE VISIT Date of Service: 01/09/18 MR#: [id number] Acct: [id number] Name: NINA AYON Rep #: [id number] : 1955 Provider: Haile Mckee MD Age/Sex: 62/F Location: [facility] Status: Signed HPI HPI Details: NINA AYON, [...] PO QDAY tab 01/09/18 [History Confirmed 01/09/18] PFSH Medical History Hyperlipidemia (Ch ronic) Hypertension (Chronic) Nonrheumatic mitral valve regurgitation (Chronic) Nonrheumatic tricuspid (valve) insufficiency (Chronic) Paroxysmal atrial fibrillation (Acute) custodial (current) use of a nticoagulants (Chronic) GERD [...] underwent a transthoracic echocardiogram on 11/07/2016 at [facility]. The results are as noted below. [...] management and follow- up. Orders Orders: 7. 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 Coding Level of Care Code Off vis,est,level 4 Diagnoses Chest pain, unspecified type R07.9 Chest pain type: unspecified Paroxysmal atrial fibrillation I48.0 Nonrheumatic mitral valve insufficiency I34.0 Non-rheumatic tricuspid valve insufficiency I36.1 Hyper lipidemia, unspecified hyperlipidemia type E78.5 Hyperlipidemia type: unspecified Essential hypertension I10 Hypertension type: essential hypertension custodial current use of anticoagulant Z79.01 1103 <Electronically signed by Haile Mckee MD> Date Haile Mckee MD Cosigner Signature: Date (if applicable) CC: Nina Jiménez DO 09-Jan-2018 12 Lead EKG performed by [facility] Result: Comments: See Note; NOTES: [facility] [address] [place] [address] 12 Lead EKG performed by [facility] 01/09/185 MR#: [id number] Acct: [id number] Name: NNIA AYON Rep #: [id number] : 1955 62 From: Haile Mckee MD Attending Dr: Haile Mckee MD Status: DEP [facility] Ordering Dr: Haile Mckee MD Date: 01/09/18 Location: [facility] Sex: F C Admitted : BMS/12 Lead EKG performed by [facility] ECG Report Interpretation Sinus Rhythm - occasional ectopic ventricular beat Electronically signed on 01/09/2018 at 12:2 4 by Haile Mckee 01/09/181226 Date Haile Mckee MD CC: Nina Jiménez DO Date Dictated: 01/09/181024 Date Transcribed: 01/09/181024 Memory Care Director: PM Signed 09-Aug-2017 Abdomen/Pelvis WITH Contrast Result: Comments: See Note; NOTES: [facility] Imaging Services [address] [place] [address] Abdomen/Pelvis WITH Contrast MR#: [id number] Acct: [id number] Name: NINA AYON Rep # : [id number] : 1955 F 62 From: Ganga Argueta PCP: Nina Jiménez DO Status: REG CLI Study: Abdomen/Pelvis WITH Contrast Date of Exam: 08/09/17 Exam# [id number] Ordering Dr: Nina Jiménez DO STUDY: CT [...] of the lumbar spine. ORDE R #: [id number] CT/Abdomen/Pelvis WITH Contrast IMPRESSION: No acute findings in the abdomen or pelvis. Normal appendix. No hydronephrosis or urinary tract stones. No evidence of bowel obstruction. M ild sigmoid colon diverticulosis. Moderate size hiatal hernia. Electronically Signed: Ganga Argueta MD at 8:11 EST , Service support , CC: Nina Jiménez DO Memory Care Director: Signed 07-Nov-2016 Echocardiogram Complete Result: Comments: See Note; NOTES: [facility] Cardiovascular Services [address] [place] [address] Echo Complete 11/07/16 1027 MR#: [id number] Acct: [id number] Name: NINA AYON Rep #: [id number] : 1955 61 From: Haile Mckee MD Attending Dr: Sanam Coronel NP Status: REG CLI Ordering Dr: Sanam Coronel E HR PAYROLL COORDINATOR-C Date: 11/07/16 Location: [facility] Sex: F C Admitted: [place] son For Study: Afib Procedure This was [...] Physician: Nina Jiménez Performed By: Aide Snider, RDCS, RVT 11/07/161733 Date Haile Mckee MD CC: Sanam Coronel HR PAYROLL COORDINATOR; Nina Jiménez DO Date Dictated: 11/07/16 1027 Date Transcribed: 11/07/161733 Memory Care Director: Signed 02-Nov-2016 SCREENING MAMM (CAD), BILAT Result: Comments: See Note; NOTES: [facility] Imaging Services [address] [place] [address] Verdana 4d SCREENING MAMM (CAD), BILAT MR#: [id number] Acct: [id number] Name: DARÍO AYON Rep #: [id number] : 1955 F 61 From: Jaya Mac MD PCP: Nina Jiménez DO Status: REG I Study: SCREENING MAMM (CAD), BILAT Date of Exam: 11/02/16 Exam# [id number] Ordering Dr: Nina Kingsley DO MAMMOGRAPHY - [...] will be sent to the patient by [facility] facility within 30 days. Approximately 10% of breast cancers are not detected by mammography. A normal mammogram should not delay biopsy of a clinically suspicious abnormality. [id number] Electronicall y Signed: Jaya Mac MD at 8:27 EDT Tel [phone], Service support [phone], CC: Nina Jiménez DO Memory Care Director: Signed 04-Jul-2016 Operative Report Result: Comments: See Note; NOTES: [facility] Medical Records Department [address] [place] [address] Operative Report MR#: [id number] Acct: [id number] Name: NINA AYON Rep #: [id number] : 1955 61 From: Juan Covington MD PCP: Nina Jiménez DO Status: [facility] DATE OF SERVICE: 07/03/2016 DATE OF SERVICE: July 03, 2016 BRIEF HISTORY OF PRESENT ILLNESS: The patien t is a 61-year-old female, currently under the [...] Okay to recover in the usual fashion. JUAN COVINGTON MD C C: Haile Mckee MD Primary Care Physician T: NTS JOB: [id number] 07/04/16 0615 <Electronically signed by Juan Covington MD> Date Juna Covington MD Cosigner Signature (If Indicated): Date CC: Juan Covington MD; Nina Jiménez DO; Haile Mckee MD Date Dictated: 07/03/16 1104 Date Transcribed: 07/03/161103 Memory Care Director: Signed 03-Jul-2016 Operative Report Result: Comments: See Note; NOTES: [facility] Medical Records Department [address] [place] [address] Operative Report 07/03/16 1642 MR#: [id number] Acct: [id number] Name: DARÍO AYON Rep #: [id number] : 1955 61 From: Haile Mckee MD PCP: Nnia Jiménez DO Status: [facility] Y Location: [facility] Problem List (1) Atrial fibrillation Status: [...] complica tions This note was generated with [employer] dictation software. It may contain incorrect words, spelling, and punctuation that were not noted in checking the note before signing. 07/03/16 1644 &#6 0;Electronically signed by Haile Mckee MD> Date Haile Mckee MD CC: Nina Jiménez DO; Haile Mckee MD Signed 03-Jul-2016 Echo Transesophageal (KATHY) Result: Comments: See Note; NOTES: [facility] Cardiovascular Services [address] [place] [address] Echo Transesophageal (KATHY) 07/03/16 0947 MR#: [id number] Acct: [id number] Name: TESSA AYALANINA B Rep #: [id number] : 1955 61 From: Haile Mckee MD Attending Dr: Haile Mckee MD Status: [facility] Ordering Dr: Haile Mckee MD Date: 07/03/16 Location: [facility] Sex: F C Admitted: Reason For Study: AFIB Medication KATHY probe passed with minimal difficulty. Cetacaine Topical Jackson given X3 orally. Versed 2 mg given [...] Dictated: 07/03/16 0947 Date Transcribed: 07/03/16 1436 Memory Care Director: Signed 28-Jun-2016 Chest PA and Lateral Result: Comments: See Note; NOTES: [facility] Imaging Services [address] [place] [address] Verdana 4d Chest PA and Lateral MR#: [id number] Acct: [id number] Name: NINA AYON #: [id number] : 1955 F 61 From: Johnathon Meza PCP: Nina Jiménez DO Status: PRE [facility] Study: Chest PA and Lateral Date of Exam: 06/28/16 Exam# [id number] Ordering Dr: Haile Mckee MD STUDY: X-RAY [...] at 6:38 EST Tel , Service support [phone], CC: Nina Jiménez DO; Haile Mckee MD Memory Care Director: Signed 19-Jun-2016 Nuclear Stress Test - Chemical Result: Comments: See Note; NOTES: [facility] Imaging Services [address] [place] [address] Candie 4d Nuclear Stress Test - Chemical MR#: [id number] Acct: [id number] Name: Ashlee AYON Rep #: [id number] : 1955 61 From: Haile Mckee MD [...] 60%. Haile Mckee MD T: NTS JOB: [id number] 06/19/161936 <Electronically signed by Haile Mckee MD> Date Haile Mckee MD CC: Nina Diop on DO; Haile Mckee MD Date Dictated: 06/19/161406 Date Transcribed: 06/19/161406 Memory Care Director: Signed 08-Jun-2016 Echocardiogram Complete Result: Comments: See Note; NOTES: [facility] Cardiovascular Services [address] [facility] [place] [place] [address] Echo Complete 06/08/16 1319 MR#: [id number] Acct: [id number] Name: NINA AYON Rep #: [id number] : 1955 61 From: Haile Mckee MD Attending Dr: Nina Jiménez DO Status: REG CLI Ordering Dr: Nina Jiménez DO Date: 06/08/16 Location: [facility] Sex: F C Admitted: Reas on For [...] Aide Snider, RONAL, RVT Electronically signed by: Halie Mckee MD on 05:31 PM 06/08/16 1731 Date Haile Mckee MD CC: Nina Jiménez DO Date Dictated: 06/08/16 1319 Date Transcribed: 06/08/161731 Memory Care Director: Signed 06-Jul-2014 Hepatobilliary Imaging Result: Comments: See Note; NOTES: [facility] Imaging Services [address] [place] [address] Nuclear Medicine Report MR#: [id number] Acct: [id number] Name: NINA AYON Rep #: [id number] : 1955 F 59 From: Steven Cunha DO PCP: Nina Jiménez DO Status: REG CLI Study: Hepatobilliary Imaging Date of Exam: 07/06/14 Exam# [id number] Ordering Dr: Kacey Patton CL INICAL: 59-year-old [...] cystic duct syndrome) to be low. (Jefferson Blair et al, Journal of Nuclear Medicine 32:1695, 1990). 2. There is scintigraphic evidence of post CCK duodenal-gastric reflux. (Delia et al, Nucl Med Roxana Lucia Press pg. 35, 1980). Electronically Signed: Steven Cunha DO at 8:3 5 EST Tel [phone], Service support [phone], CC: Kacey Jiménez DO Memory Care Director: Signed 02-Jul-2014 Small Bowel Series Only Result: Comments: See Note; NOTES: [facility] Imaging Services [address] [place] [address] Radiology Report MR#: [id number] Acct: [id number] Name: NINA AYON Rep #: [id number] : 1955 F 59 From: Jaya Mac MD PCP: Nina Jiménez DO Status: REG CLI Study: Small Bowel Series Only Date of Exam: 07/02/14 Exam# [id number] Ordering Dr: Kacey Patton CEDURE: SMALL BOWEL [...] bowel series. Electronically Signed: Jaya Mac MD 11/27/13 at 11:02 EST Tel [phone], Service support [phone], RAD/Small Bowel Series Only IMPRESSION: Normal small bowel series. Electronically Signed: Jaya Mac MD at 11:02 EST Tel [phone], Service support [phone], CC: Kacey Patton; Nina Jiménez DO Memory Care Director: Signed 23-Jun-2014 Gallbladder Result: Comments: See Note; NOTES: [facility] Imaging Services [address] [place] [address] Ultrasound Report MR#: [id number] Acct: [id number] Name: NINA AYON Rep #: [id number] : 1955 F 59 From: Jaya Mac MD PCP: Nina Jiménez DO Status: REG CLI Study: Gallbladder Date of Exam: 06/23/14 Exam# [id number] Ordering Dr: Kacey Patton STUDY: ABDOMIN AL [...] Jaya Mac MD at 11:48 EST Tel [phone], Service support [phone], CC: Kacey Patton; Nina Jiménez DO Memory Care Director: Signed Immunization Name Dates Details Influenza (3 years and up) on: 29-Jul-2008 Pneumococcal (2 years and up) on: 14-Nov-2015 Comments: Site: Deltoid (Left) Lot #: [id number] Pneumococcal (2 years and up) on: 29-Jul-2008 Social History Name Dates Details Tobacco use: Never smoker. Status: Active Smoking Status Name Dates Details Never smoker Vital Signs Date Test Result Details 69-Pib-332701:41 Temperature 97.9 f Comments: Method: Temporal Pulse [...] kg/m2 Body Surface Area Calculated 2.19 m2 6-Vxc-053104:32 Temperature 97.6 f Comments: Method: Temporal Pulse [...] kg/m2 Body Surface Area Calculated 2.22 m2 40-Hmg-023233:57 Pulse 68 /min Comments: Pattern: Regular Respiration [...] kg/m2 Body Surface Area Calculated 2.16 m2 : Pulse 64 /min Comments: Pattern: Regular Respiration [...] Date Description Value Details :39 Lipase Comments: [facility] [address] [place], [place], [address] LIPASE 127 U/L (Normal) Range: 73-393 4-Ges-361772:39 Liver Profile Comments: [facility] [address] [place], [place], [address] D BILI 0.07 mg/dL (Normal) Range: 0.00-0.30 T BILI 0.30 mg/dL (Normal) Range: 0.20-1.00 ALT 37 U/L (Normal) Range: 13-56 ALK P 88 U/L (Normal) Range: 45-117 AST 30 U/L (Normal) Range: 15-37 GLOB 3.6 g/dL (Normal) Range: 2.2-4.2 ALB 3.9 g/dL (Normal) Range: 3.2-5.0 T PROT 7.5 g/dL (Normal) Range: 6.4-8.2 :10 Basic Metabolic Profile (BMP) Comments: [facility] [address] [facility] [place], [place], [address] GAP 9 (Normal) Range: 5-15 CO2 26.0 [...] A.D.A. criteria.Please note revised GLUCOSE reference range nncbiyuqm04/02/2018. 3-Lpj-978787:10 CBC W/Diff, Automated Comments: [facility] [address] [place], [place], [id number] Absolute Lymph 1.31 {X10_3/ul} (Normal) Range: 0.83-4.51 [...] 4.2-5.4 WBC 6.9 K/mm3 (Normal) Range: 4.4-11.0 :10 Prothrombin Time w/INR Comments: [facility] [address] [place], [place], [address] INR 1.5 (Normal) PROTIME 17.9 s (Abnormal) Range: 11.7-14.9 3-Dkq-280040:10 Troponin-I Comments: [facility] [address] [facility] [address] [place], [address] TROPONIN-I < 0.015 ng/mL (Normal) Comments: TROPONIN-I EXPECTED VALUES <0.045 Negative 0.045 - 0.590 Consistent with Cardiac Damage > OR = 0.600 Critical Value Not every elevated troponin is indicative of MO. T hesevalues should be used with clinical judgement in examiningthe patient's clinical picture for diagnosis. To establisha diagnosis of MO versus myocardial injury, there must be ademonstrated rise and/ or fall in the troponin values, inaddition to ischemic symptoms, EKG changes, new regionalwall motion abnormality, and/or angiographical evidence. PLEASE NOTE: REFERENCE RANGES EDITED 12/30/1710-Feb-201810-Pgr-440264:44 Basic Metabolic Profile (BMP) Comments: [facility] [address] [place], [place], [address] GAP 8 (Normal) Range: 5-15 CO2 28.0 [...] A.D.A. criteria.Please note revised GLUCOSE reference range ntaqvuugc21/02/2018. 71-Tgl-240307:44 CBC-Complete Blood Cnt No Diff Comments: [facility] [address] [place], [place], [phone]) MPV 11.4 fL (Normal) Range: 6.2-12.0 PLT [...] 4.2-5.4 WBC 6.2 K/mm3 (Normal) Range: 4.4-11.0 02-Wws-891442:44 Partial Thromboplast Time Comments: [facility] [address] [place], [place], [address] PTT 37.7 s (Abnormal) Range: 24.1-36.2 :44 Prothrombin Time w/INR Comments: [facility] [address] [place], [place], [phone] INR 1.8 (Normal) PROTIME 21.0 s (Abnormal) Range: 11.7-14.9 2-Rra-158777:37 Urinalysis, Office (05790) UA - LEUKOCYTE ESTERASE Moderate (Normal) UA - NITRITE Negative (Normal) URINE UROBILINGN RUBEN TIMED 2 mg/dL (Normal) UA - PROTEIN Negative mg/dL (Normal) UA - PH 7.0 (Normal) UA - BLOOD Hemolyzed Trace (Normal) UA - SPECIFIC GRAVITY 1.010 (Normal) UA - KETONES Negative mg/dL (Normal) UA - BILIRUBIN Negative (Normal) UA - GLUCOSE Negative (Normal) 6-Ikm-524955:33 Blood Glucose , Office (33544) Blood Glucose , Office 131 (Normal) 2-Rfa-045565:33 HgA1C , Office (95601) HgA1C , Office 5.9 % (Normal) Range: 4.6 - 7.1 :22 H-Pylori IGA,IGG,IGM (22457) Comments: PATIENT NOT FASTINGPERFORMED BY: [facility]villeVdatpc3132 [facility] [id number] H pylori, IgM Abs <9.0 {units} (Normal) Range: 0.0-8.9 Comments: Negative <9.0 Equivocal 9.0 - 11.0 Positive >11.0 .This test was developed and its performance characteristicsdetermined by [facility] [employer] It has not been cleared or approvedby the Food and Drug Administration. H. pylori, IgA Abs <9.0 {units} (Normal) Range: 0.0-8.9 Comments: Negative <9.0 Equivocal 9.0 - 11.0 Positive >11.0 H. pylori, IgG Abs <0.9 U/mL (Normal) Range: 0.0-0.8 Comments: Negative <0.9 Indeterminate 0.9 - 1.0 Positive >1.0 Effective August the reference interval will be changing to: Negative <0.8 Equivocal 0.8 Positive >0.8 0-Rci-387517:19 Microscopic Examination Comments: PATIENT WAS FASTINGPERFORMED BY: [facility] ImagingClov[facility] Baptist HospitalQxnkbo7301 [facility] [id number] Bacteria Few (Normal) Mucus Threads Present (Normal) Epithelial Cells (non renal) >10 {/hpf} (Abnormal) Range: 0 - 10 RBC 3-10 {/hpf} (Abnormal) Range: 0 - 2 WBC >30 {/hpf} (Abnormal) Range: 0 - 5 1-Nwq-121576:21 Basic Metabolic Profile (BMP) Comments: Order Date: 05/08/17Order Info: [id number] - *BMPComments: Reason:[facility] [address] [place], [place], [address] GAP 5 (Normal) Range: 5-15 CO2 31.0 [...] 7-18 GLU 93 mg/dL (Normal) Range: 70-110 90-Gok-550656:34 HGB A1C (51016) Comments: PATIENT WAS FASTINGPERFORMED BY: ADI [facility]6370 [facility] [id number] Hemoglobin A1c 6.5 % (Abnormal) Range: 4.8-5.6 Comments: . Pre-diabetes: 5.7 - 6.4 Diabetes: >6.4 Glycemic control for adults with diabetes: <7.0 :34 MICROALBUMIN: CREATININE RATIO Comments: PATIENT WAS FASTINGPERFORMED BY: [facility] ImagingClovis Baptist HospitalBfaedn3539 [facility] [id number] (82933) AND (51779) Microalb/Creat Ratio <13.7 {mg/g_creat} (Normal) Range: 0.0-30.0 Microalbumin, Urine <3.0 ug/mL (Normal) Creatinine, Urine 21.9 mg/dL (Normal) :34 TSH (73573) Comments: PATIENT WAS FASTINGPERFORMED BY: [facility] ImagingClovis Baptist HospitalOguwfc7912 [facility] [id number] TSH 2.420 {uIU/mL} (Normal) Range: 0.450-4.500 :34 Lipid Panel (83595) Comments: PATIENT WAS FASTINGPERFORMED BY: [facility] ImagingClovis Baptist HospitalMdvnji1398 [facility] [id number] LDL/HDL Ratio 1.9 {ratio_units} (Normal) Range: 0.0-3.2 Comments: LDL/HDL Ratio Men Women 1/2 Avg.Risk 1.0 1.5 Av g.Risk 3.6 3.2 2X Avg.Risk 6.2 5.0 3X Avg.Risk 8.0 6.1 LDL Cholesterol Calc 132 mg/dL (Abnormal) Range: 0-99 VLDL Cholesterol Aneesh 15 mg/dL (Normal) Range: 5-40 HDL Cholesterol 71 mg/dL (Normal) Triglycerides 73 mg/dL (Normal) Range: 0-149 Cholesterol, Total 218 mg/dL (Abnormal) Range: 100-199 33-Qny-009154:34 Metabolic Panel, Comprehensive Comments: PATIENT WAS FASTINGPERFORMED BY: [facility] ImagingSaint Clare's Hospital at DenvilleKnjyqd5879 [facility] [id number] (92194) ALT (SGPT) 27 [iU]/L (Normal) Range: 0-32 [...] Glucose, Serum 96 mg/dL (Normal) Range: 65-99 86-Dht-551117:34 CBC WITH MANUAL DIFF (28109) Comments: PATIENT WAS FASTINGPERFORMED BY: LabCoSaint Clare's Hospital at DenvilleCpeiso0073 [facility] [id number] Immature Grans (Abs) 0.0 {x10E3/uL} (Normal) Range: [...] 7.4 {x10E3/uL} (Normal) Range: 3.4-10.8 :19 TSH (56394) Comments: PATIENT WAS FASTINGPERFORMED BY: [facility] [id number] TSH 2.050 {uIU/mL} (Normal) Range: 0.450-4.500 :19 URINALYSIS, W/ MICRO (51324) Comments: PATIENT WAS FASTINGPERFORMED BY: [facility] SystemsHay[facility] [id number] Microscopic Examination See below: (Normal) Comments: Microscopic was indicated and was performed. Nitrite, Urine Negative (Normal) Urobilinogen,Semi-Qn 0.2 mg/dL (Normal) Range: 0.2-1.0 Bilirubin Negative (Normal) Occult Blood 1+ (Abnormal) Ketones Negative (Normal) Glucose Negative (Normal) Protein Negative (Normal) WBC Esterase 3+ (Abnormal) Appearance Cloudy (Abnormal) Urine-Color Yellow (Normal) pH 7.0 (Normal) Range: 5.0-7.5 Specific [place] 1.015 (Normal) Range: 1.005-1.030 :19 MICROALBUMIN: CREATININE RATIO Comments: PATIENT WAS FASTINGPERFORMED BY: [facility] [id number] (74505) AND (07645) Microalb/Creat Ratio 9.1 {mg/g_creat} (Normal) Range: 0.0-30.0 Microalbumin, Urine 7.4 ug/mL (Normal) Creatinine, Urine 81.3 mg/dL (Normal) :19 METABOLIC PANEL, COMPREHENSIVE Comments: PATIENT WAS FASTINGPERFORMED BY: [facility] Shcoxh8098 [facility] [id number] (23527) ALT (SGPT) 43 [iU]/L (Abnormal) Range: 0-32 [...] Glucose, Serum 104 mg/dL (Abnormal) Range: 65-99 8-Tbn-012219:19 LIPID PANEL (81569) Comments: PATIENT WAS FASTINGPERFORMED BY: [employer] SL6370 [facility] [id number] LDL/HDL Ratio 2.7 {ratio_units} (Normal) Range: 0.0-3.2 Comments: LDL/HDL Ratio Men Women 1/2 Avg.Risk 1.0 1.5 Av g.Risk 3.6 3.2 2X Avg.Risk 6.2 5.0 3X Avg.Risk 8.0 6.1 LDL Cholesterol Calc 145 mg/dL (Abnormal) Range: 0-99 VLDL Cholesterol Aneesh 18 mg/dL (Normal) Range: 5-40 HDL Cholesterol 53 mg/dL (Normal) Triglycerides 89 mg/dL (Normal) Range: 0-149 Cholesterol, Total 216 mg/dL (Abnormal) Range: 100-199 9-Wnv-086775:19 CBC W/AUTO DIFF WBC (49909) Comments: PATIENT WAS FASTINGPERFORMED BY: LabCoSaint Clare's Hospital at DenvilleJgxrmv7695 [facility] [id number] Immature Grans (Abs) 0.0 {x10E3/uL} (Normal) Range: [...] {x10E3/uL} (Normal) Range: 3.4-10.8 :19 HGB A1C (04719) Comments: PATIENT WAS FASTINGPERFORMED BY: LabCoSaint Clare's Hospital at DenvilleYiscvl3751 [facility] [id number] Hemoglobin A1c 6.2 % (Abnormal) Range: 4.8-5.6 Comments: . Pre-diabetes: 5.7 - 6.4 Diabetes: >6.4 Glycemic control for adults with diabetes: <7.0 :19 HGB A1C (47924) Comments: PATIENT NOT FASTINGPERFORMED BY: LabCoSaint Clare's Hospital at DenvilleWifogx5622 [facility] [id number] Hemoglobin A1c 6.2 % (Abnormal) Range: 4.8-5.6 Comments: . Pre-diabetes: 5.7 - 6.4 Diabetes: >6.4 Glycemic control for adults with diabetes: <7.0 :33 Basic Metabolic Profile (BMP) Comments: Order Date: 06/21/16Order Info: [id number] - *BMPOrder Date: 06/21/16Order Info: [id number] - *BMPComments: Reason:[facility] Unbjnmzzcl[address] [place] [place], [address] GAP 8 (Normal) Range: 5-15 CO2 27.0 [...] 7-18 GLU 89 mg/dL (Normal) Range: 70-110 :37 Microscopic Examination Comments: PATIENT NOT FASTINGPERFORMED BY: [employer] [facility] [id number] Bacteria None seen (Normal) Mucus Threads Present (Normal) Epithelial Cells (non renal) 0-10 {/hpf} (Normal) Range: 0 - 10 RBC 0-2 {/hpf} (Normal) Range: 0 - 2 WBC 0-5 {/hpf} (Normal) Range: 0 - 5 :37 URINALYSIS, W/ MICRO (51343) Comments: PATIENT NOT FASTINGPERFORMED BY: [employer] [facility] [id number] Microscopic Examination See below: (Normal) Comments: Microscopic was indicated and was performed. Nitrite, Urine Negative (Normal) Urobilinogen,Semi-Qn 0.2 mg/dL (Normal) Range: 0.2-1.0 Bilirubin Negative (Normal) Occult Blood Negative (Normal) Ketones Negative (Normal) Glucose Negative (Normal) Protein Negative (Normal) WBC Esterase 2+ (Abnormal) Appearance Clear (Normal) Urine-Color Yellow (Normal) pH 8.0 (Abnormal) Range: 5.0-7.5 Specific [place] 1.011 (Normal) Range: 1.005-1.030 :37 TSH (44135) Comments: PATIENT NOT FASTINGPERFORMED BY: [facility] Cudfyi7329 [facility] [id number] TSH 2.050 {uIU/mL} (Normal) Range: 0.450-4.500 :37 METABOLIC PANEL, COMPREHENSIVE Comments: PATIENT NOT FASTINGPERFORMED BY: [employer] Bljmnw2056 [facility] [id number] (07142) ALT (SGPT) 31 [iU]/L (Normal) Range: 0-32 [...] Glucose, Serum 96 mg/dL (Normal) Range: 65-99 88-Joo-579888:37 CBC W/AUTO DIFF WBC (69598) Comments: PATIENT NOT FASTINGPERFORMED BY: LabCoSaint Clare's Hospital at DenvilleXfwpux0338 [facility] [id number] Immature Grans (Abs) 0.0 {x10E3/uL} (Normal) Range: [...] (Normal) Range: 3.4-10.8 :08 HgA1C , Office (99156) HgA1C , Office 5.9 % (Normal) Range: 4.6 - 7.1 :49 HGB A1C (56561) Comments: PATIENT WAS FASTINGPERFORMED BY: [facility] ImagingSaint Clare's Hospital at DenvilleRouhsq5465 [facility] [id number] Hemoglobin A1c 6.1 % (Abnormal) Range: 4.8-5.6 Comments: . Pre-diabetes: 5.7 - 6.4 Diabetes: >6.4 Glycemic control for adults with diabetes: <7.0 :49 TSH (05155) Comments: PATIENT WAS FASTINGPERFORMED BY: [facility] ImagingSaint Clare's Hospital at DenvilleVjaldh2839 [facility] [id number] TSH 2.280 {uIU/mL} (Normal) Range: 0.450-4.500 :49 MICROALBUMIN: CREATININE RATIO Comments: PATIENT WAS FASTINGPERFORMED BY: [facility] ImagingSaint Clare's Hospital at DenvilleZbjthi3948 [facility] [id number] (34762) AND (72282) Microalb/Creat Ratio <3.5 {mg/g_creat} (Normal) Range: 0.0-30.0 Microalbumin, Urine <3.0 ug/mL (Normal) Creatinine, Urine 85.4 mg/dL (Normal) 3-Caq-893041:49 METABOLIC PANEL, COMPREHENSIVE Comments: PATIENT WAS FASTINGPERFORMED BY: LabCoSaint Clare's Hospital at DenvilleCocyub1990 [facility] [id number] (48839) ALT (SGPT) 19 [iU]/L (Normal) Range: 0-32 [...] Glucose, Serum 101 mg/dL (Abnormal) Range: 65-99 1-Jzx-535190:49 LIPID PANEL (86900) Comments: PATIENT WAS FASTINGPERFORMED BY: [facility] ImagingSaint Clare's Hospital at DenvilleCjlccx4269 [facility] [id number] LDL/HDL Ratio 2.3 {ratio_units} (Normal) Range: 0.0-3.2 Comments: LDL/HDL Ratio Men Women 1/2 Avg.Risk 1.0 1.5 Av g.Risk 3.6 3.2 2X Avg.Risk 6.2 5.0 3X Avg.Risk 8.0 6.1 LDL Cholesterol Calc 132 mg/dL (Abnormal) Range: 0-99 VLDL Cholesterol Aneesh 10 mg/dL (Normal) Range: 5-40 HDL Cholesterol 58 mg/dL (Normal) Triglycerides 48 mg/dL (Normal) Range: 0-149 Cholesterol, Total 200 mg/dL (Abnormal) Range: 100-199 6-Ybv-754400:49 CBC W/AUTO DIFF WBC (38627) Comments: PATIENT WAS FASTINGPERFORMED BY: LabPresenceLearningSaint Clare's Hospital at DenvilleZkpzuz2370 [facility] [id number]; will review at 08/07 appt Immature Grans [...] 3.77-5.28 WBC 4.9 {x10E3/uL} (Normal) Range: 3.4-10.8 :18 Microscopic Examination Comments: PATIENT WAS FASTINGPERFORMED BY: [facility] ImagingSaint Clare's Hospital at DenvilleTbbauq7156 [facility] [id number] Bacteria Few (Normal) Mucus Threads Present (Normal) Epithelial Cells (non renal) 0-10 {/hpf} (Normal) Range: 0 - 10 RBC 0-2 {/hpf} (Normal) Range: 0 - 2 WBC 0-5 {/hpf} (Normal) Range: 0 - 5 :48 Blood Glucose , Office (68120) Blood Glucose , Office 75 (Normal) :48 HgA1C , Office (91670) HgA1C , Office 6.0 % (Normal) Range: 4.6 - 7.1 :18 TSH (97699) Comments: PATIENT WAS FASTINGPERFORMED BY: [facility] ImagingSaint Clare's Hospital at DenvilleKgyawh6700 [facility] [id number] TSH 1.930 {uIU/mL} (Normal) Range: 0.450-4.500 :18 URINALYSIS, W/ MICRO (22330) Comments: PATIENT WAS FASTINGPERFORMED BY: [facility] ImagingSaint Clare's Hospital at DenvillePsdgtd5327 [facility] [id number] Microscopic Examination See below: (Normal) Comments: Microscopic was indicated and was performed. Nitrite, Urine Negative (Normal) Urobilinogen,Semi-Qn 0.2 mg/dL (Normal) Range: 0.2-1.0 Bilirubin Negative (Normal) Occult Blood Negative (Normal) Ketones Negative (Normal) Glucose Negative (Normal) Protein Negative (Normal) WBC Esterase 1+ (Abnormal) Appearance Clear (Normal) Urine-Color Yellow (Normal) pH 7.5 (Normal) Range: 5.0-7.5 Specific [place] 1.023 (Normal) Range: 1.005-1.030 :18 MICROALBUMIN: CREATININE RATIO Comments: PATIENT WAS FASTINGPERFORMED BY: [facility] ImagingSaint Clare's Hospital at DenvilleZkwmjc0088 [facility] [id number] (85773) AND (13493) Microalb/Creat Ratio 4.2 {mg/g_creat} (Normal) Range: 0.0-30.0 Microalbumin, Urine 6.3 ug/mL (Normal) Creatinine, Urine 149.4 mg/dL (Normal) :18 METABOLIC PANEL, COMPREHENSIVE Comments: PATIENT WAS FASTINGPERFORMED BY: [facility] ImagingClovis Baptist HospitalPdtvzu8938 [facility] [id number] (64174) ALT (SGPT) 30 [iU]/L (Normal) Range: 0-32 [...] Glucose, Serum 94 mg/dL (Normal) Range: 65-99 :18 CBC W/AUTO DIFF WBC (88844) Comments: PATIENT WAS FASTINGPERFORMED BY: LabCoClovis Baptist HospitalAmdtiy0912 [facility] [id number] Immature Grans (Abs) 0.0 {x10E3/uL} (Normal) Range: [...] 6.1 {x10E3/uL} (Normal) Range: 3.4-10.8 :02 TSH (32284) Comments: PATIENT WAS FASTINGPERFORMED BY: LabCoSaint Clare's Hospital at DenvilleAmxrii5725 [facility] [id number] TSH 2.070 {uIU/mL} (Normal) Range: 0.450-4.500 :02 CBC W/AUTO DIFF WBC Comments: PATIENT WAS FASTINGPERFORMED BY: [facility]6370 [facility] [id number] Information: [id number] (29843) Immature Grans (Abs) 0.0 {x10E3/uL} (Normal) Range: [...] 3.77-5.28 WBC 5.1 {x10E3/uL} (Normal) Range: 3.4-10.8 85-Nar-883702:02 MICROALBUMIN: CREATININE RATIO Comments: PATIENT WAS FASTINGPERFORMED BY: [facility]6370 [facility] [id number] (56780) AND (24017) Microalb/Creat Ratio 4.5 {mg/g_creat} (Normal) Range: 0.0-30.0 Microalbumin, Urine 5.7 ug/mL (Normal) Range: 0.0-17.0 Creatinine, Urine 127.2 mg/dL (Normal) Range: 15.0-278.0 :02 METABOLIC PANEL, COMPREHENSIVE Comments: PATIENT WAS FASTINGPERFORMED BY: [employer]70 [facility] [facility]Hay[facility] [id number] (02388) ALT (SGPT) 20 [iU]/L (Normal) Range: 0-32 [...] Glucose, Serum 86 mg/dL (Normal) Range: 65-99 :02 LIPID PANEL (41542) Comments: PATIENT WAS FASTINGPERFORMED BY: [employer]70 [facility] BlueHaywood [facility] Center [id number] LDL/HDL Ratio 2.1 {ratio_units} (Normal) Range: 0.0-3.2 [...] Cholesterol, Total 203 mg/dL (Abnormal) Range: 100-199 11-Mun-749510:02 HGB A1C (59782) Comments: PATIENT WAS FASTINGPERFORMED BY: [facility]6370 [facility] [id number] Hemoglobin A1c 6.0 % (Abnormal) Range: 4.8-5.6 Comments: . Pre-diabetes: 5.7 - 6.4 Diabetes: >6.4 Glycemic control for adults with diabetes: <7.0 19-Lvl-635922:15 CULTURE, SPUTUM (20701) Comments: PERFORMED BY: LabCoSaint Clare's Hospital at DenvilleQzwavk[address] [place] [address] [id number] Information: SRC: SPUTUM Result 1 RRF (Normal) Comments: Routine respiratory jamia Lower Respiratory Culture Final report (Normal) 08-Lui-472075:45 Rapid Flu (71002 x 2) Influenza A Ag negative (Normal) 97-Cdo-966329:50 HgA1C , Office (33830) HgA1C , Office 6.4 % (Normal) Range: 4.6 - 7.1 66-Sai-882368:50 Blood Glucose , Office (30807) Blood Glucose , Office 102 (Normal) Comments: non-fasting 9-Aps-261815:00 Urinalysis, Office (73322) UA - LEUKOCYTE ESTERASE Negative (Normal) UA - NITRITE Negative (Normal) URINE UROBILINGN RUBEN TIMED 2 mg/dL (Normal) UA - PROTEIN Negative mg/dL (Normal) UA - PH 6.5 (Normal) UA - BLOOD non-hemolyzed trace (Normal) UA - SPECIFIC GRAVITY 1.025 (Normal) UA - KETONES Negative mg/dL (Normal) UA - BILIRUBIN Negative (Normal) UA - GLUCOSE Negative (Normal) :41 Microscopic Examination Comments: PATIENT WAS FASTINGPERFORMED BY: [facility]6370 [facility] [id number] Bacteria Moderate (Abnormal) Mucus Threads Present (Normal) Epithelial Cells (non renal) >10 {/hpf} (Abnormal) Range: 0 - 10 RBC 0-2 {/hpf} (Normal) Range: 0 - 2 WBC >30 {/hpf} (Abnormal) Range: 0 - 5 :19 HgA1C , Office (62737) HgA1C , Office 6.1 % (Normal) Range: 4.6 - 7.1 :19 Blood Glucose , Office (84465) Blood Glucose , Office 98 (Normal) :19 HgA1C , Office (53730) HgA1C , Office 5.9 % (Normal) Range: 4.6 - 7.1 :19 Blood Glucose , Office (34990) Blood Glucose , Office 97 (Normal) 06-Cef-425178:55 METABOLIC PANEL, COMPREHENSIVE Comments: PATIENT NOT FASTINGPERFORMED BY: LabCoMary [place] 2720470 [facility] [id number] (03885) ALT (SGPT) 17 [iU]/L (Normal) Range: 0-32 [...] Glucose, Serum 85 mg/dL (Normal) Range: 65-99 07-Ebs-245731:55 CBC WITH MANUAL DIFF Comments: PATIENT NOT FASTINGPERFORMED BY: ADI [facility] Fxzgyt5357 [facility] [id number] Information: [id number]; will review at 3-30 appt (15538) Immature Grans (Abs) 0.0 {x10E3/uL} (Normal) Range: [...] 3.77-5.28 WBC 6.3 {x10E3/uL} (Normal) Range: 3.4-10.8 :41 URINALYSIS, W/ MICRO (13040) Comments: PATIENT WAS FASTINGPERFORMED BY: HolganixSaint Clare's Hospital at DenvilleAabxkd6829 [facility] [id number] Microscopic Examination See below: (Normal) Comments: Microscopic was indicated and was performed. Nitrite, Urine Negative (Normal) Urobilinogen,Semi-Qn 0.2 mg/dL (Normal) Range: 0.0-1.9 Bilirubin Negative (Normal) Occult Blood Negative (Normal) Ketones Negative (Normal) Glucose Negative (Normal) Protein Negative (Normal) WBC Esterase 3+ (Abnormal) Appearance Clear (Normal) Urine-Color Yellow (Normal) pH 6.5 (Normal) Range: 5.0-7.5 Specific [place] 1.020 (Normal) Range: 1.005-1.030 :41 MICROALBUMIN: CREATININE RATIO Comments: PATIENT WAS FASTINGPERFORMED BY: [facility] ImagingSaint Clare's Hospital at DenvilleMvxgdu8450 [facility] [id number] (68818) AND (66625) Microalb/Creat Ratio 9.9 {mg/g_creat} (Normal) Range: 0.0-30.0 Microalbumin, Urine 10.2 ug/mL (Normal) Range: 0.0-17.0 Creatinine, Urine 103.0 mg/dL (Normal) Range: 15.0-278.0 :41 METABOLIC PANEL, COMPREHENSIVE Comments: PATIENT WAS FASTINGPERFORMED BY: [facility]onisysOsf [facility]6370 [facility] [id number] (59134) ALT (SGPT) 33 [iU]/L (Abnormal) Range: 0-32 [...] mg/dL (Normal) Range: 65-99 :41 LIPID PANEL (81996) Comments: PATIENT WAS FASTINGPERFORMED BY: [facility] [id number] LDL/HDL Ratio 1.8 {ratio_units} (Normal) Range: 0.0-3.2 [...] MANUAL DIFF Comments: PATIENT WAS FASTINGPERFORMED BY: [facility] [place] [id number] Information: [id number] (78038) Immature Grans (Abs) 0.0 {x10E3/uL} (Normal) Range: [...] 7.1 {x10E3/uL} (Normal) Range: 3.4-10.8 :41 TSH (58447) Comments: PATIENT WAS FASTINGPERFORMED BY: [facility] Nuhahz7149 [facility] [id number] TSH 2.910 {uIU/mL} (Normal) Range: 0.450-4.500 33-Fov-660002:29 HEMOGLOBIN GLYCLATED (HGB Comments: PATIENT NOT FASTINGPERFORMED BY: IkonisysCoClovis Baptist HospitalJhsytf2492 [facility] [id number] Information: [id number] A1C) (89869) Hemoglobin A1c 6.1 % (Abnormal) Range: 4.8-5.6 Comments: . Increased risk for diabetes: 5.7 - 6.4 Diabetes: >6.4 Glycemic control for adults with diabetes: <7.0 :48 HgA1C , Office (77396) HgA1C , Office 9.0 % (Abnormal) Range: 4.6 - 7.1 :48 Blood Glucose , Office (62498) Blood Glucose , Office 125 (Normal) :08 HgA1C , Office (67299) HgA1C , Office 5.8 % (Normal) Range: 4.6 - 7.1 :08 Blood Glucose , Office (27323) Blood Glucose , Office 88 (Normal) 84-Epf-265796:26 Rapid Flu (62450 x 2) Influenza A Ag negative A and B (Normal) :01 HgA1C , Office (27621) HgA1C , Office 6.0 % (Normal) Range: 4.6 - 7.1 :01 Blood Glucose , Office (96316) Blood Glucose , Office 79 (Normal) :01 HgA1C , Office (13288) HgA1C , Office 6.3 % (Normal) Range: 4.6 - 7.1 :00 Blood Glucose , Office (34496) Blood Glucose , Office 99 (Normal) :46 Microscopic Examination Comments: PATIENT WAS FASTINGPERFORMED BY: [facility] Eczylq0698 [facility] [id number] Bacteria None seen (Normal) Mucus Threads Present (Normal) Epithelial Cells (non renal) 0-10 {/hpf} (Normal) Range: 0 - 10 RBC 0-3 {/hpf} (Normal) Range: 0 - 3 WBC 6-10 {/hpf} (Abnormal) Range: 0 - 5 :46 TSH (10474) Comments: PATIENT WAS FASTINGPERFORMED BY: [facility] Ncknje9568 [facility] [id number] TSH 2.400 {uIU/mL} (Normal) Range: 0.450-4.500 :46 URINALYSIS, W/ MICRO (56896) Comments: PATIENT WAS FASTINGPERFORMED BY: [facility]6370 [facility] [id number] Microscopic Examination See below: (Normal) Nitrite, Urine Negative (Normal) Urobilinogen,Semi-Qn 0.2 mg/dL (Normal) Range: 0.0-1.9 Bilirubin Negative (Normal) Occult Blood Negative (Normal) Ketones Negative (Normal) Glucose Negative (Normal) Protein Trace (Normal) WBC Esterase 2+ (Abnormal) Appearance Clear (Normal) Urine-Color Yellow (Normal) pH 8.0 (Abnormal) Range: 5.0-7.5 Specific [place] 1.026 (Normal) Range: 1.005-1.030 :46 MICROALBUMIN: CREATININE RATIO Comments: PATIENT WAS FASTINGPERFORMED BY: [facility] ImagingSaint Clare's Hospital at DenvilleYgxdsb9499 [facility] [id number] (70765) AND (21872) Microalb/Creat Ratio 2.4 {mg/g_creat} (Normal) Range: 0.0-30.0 Microalbumin, Urine 3.7 ug/mL (Normal) Range: 0.0-17.0 Creatinine, Urine 151.9 mg/dL (Normal) Range: 15.0-278.0 :46 METABOLIC PANEL, COMPREHENSIVE Comments: PATIENT WAS FASTINGPERFORMED BY: [facility] ImagingSaint Clare's Hospital at DenvilleGedwgn4154 [facility] [id number] (74375) ALT (SGPT) 29 [iU]/L (Normal) Range: 0-32 [...] mg/dL (Abnormal) Range: 65-99 :46 LIPID PANEL (06412) Comments: PATIENT WAS FASTINGPERFORMED BY: [employer]70 [facility] [id number] LDL/HDL Ratio 1.8 {ratio_units} (Normal) Range: 0.0-3.2 [...] MANUAL DIFF Comments: PATIENT WAS FASTINGPERFORMED BY: HolganixSaint Clare's Hospital at DenvilleGmjmpc0480 [facility] [id number] Information: SRC: URINE (70484) Immature Grans (Abs) 0.0 {x10E3/uL} (Normal) Range: [...] {x10E3/uL} (Normal) Range: 4.0-10.5 :47 CCP ANTIBODY (83500) Comments: PATIENT WAS FASTINGPERFORMED BY: [employer] [facility] [id number] BY: [facility] [id number] CCP Antibodies IgG/IgA 22 {units} (Abnormal) Range: 0-19 Comments: Negative <20 Weak positive 20 - 39 Moderate positive 40 - 59 Strong positive >59 :47 SED RATE ERYTHROCYTE Comments: PATIENT WAS FASTINGPERFORMED BY: [employer] [facility] [id number] BY: [address] [id number] (33147) Sedimentation Rate-Westergren 3 mm/h (Normal) Range: 0-40 :47 C-REACTIVE PROTEIN (17763) Comments: PATIENT WAS FASTINGPERFORMED BY: [place] 2780270 [facility] [id number] BY: [address] [id number] C-Reactive Protein, Quant 6.5 mg/L (Abnormal) Range: 0.0-4.9 :47 RHEUMATOID FACTOR-QUANT Comments: PATIENT WAS FASTINGPERFORMED BY: [facility] [id number] BY: [address] [id number] (81503) RA Latex Turbid. 10.2 {IU/mL} (Normal) Range: 0.0-13.9 :47 YAMIL (ANTINUCLEAR ANTIBODY) Comments: PATIENT WAS FASTINGPERFORMED BY: [employer] [id number] BY: [address] [id number] (51084) YAMIL Direct Negative (Normal) :35 HgA1C , Office (33366) HgA1C , Office 6.8 % (Normal) Range: 4.6 - 7.1 :35 Blood Glucose , Office (77569) Blood Glucose , Office 89 (Normal) Comments: PATIENT DID ON HER OWN MACHINE :56 HgA1C , Office (15995) HgA1C , Office 6.0 % (Normal) Range: 4.6 - 7.1 :56 Blood Glucose , Office (48181) Blood Glucose , Office 100 (Normal) 64-Dgn-640245:45 Microscopic Examination Comments: PATIENT WAS FASTINGPERFORMED BY: LabJames Ville 3684170 [facility] [id number] Bacteria Many (Abnormal) Mucus Threads Present (Normal) Epithelial Cells (non renal) >10 {/hpf} (Abnormal) Range: 0 - 10 RBC 0-3 {/hpf} (Normal) Range: 0 - 3 WBC 11-30 {/hpf} (Abnormal) Range: 0 - 5 :02 HgA1C , Office (01906) HgA1C , Office 6.1 % (Normal) Range: 4.6 - 7.1 :02 Blood Glucose , Office (96174) Blood Glucose , Office 96 (Normal) :41 CBC With Differential/Platelet Comments: PATIENT WAS FASTINGPERFORMED BY: LabCoSaint [facility] [id number] [facility] [id number] Immature Grans (Abs) 0.0 {x10E3/uL} (Normal) Range: [...] 3.80-5.10 WBC 5.5 {x10E3/uL} (Normal) Range: 4.0-10.5 [id number]-892387:41 Comp. Metabolic Panel (14) Comments: PATIENT WAS FASTINGPERFORMED BY: LabCoSaint [facility] [id number] [facility] [id number] ALT (SGPT) 22 [iU]/L (Normal) Range: 0-40 [...] Glucose, Serum 92 mg/dL (Normal) Range: 65-99 :41 Lipid Panel With LDL/HDL Comments: PATIENT WAS FASTINGPERFORMED BY: [facility] ImagingSaint Clare's Hospital at DenvilleVpvgtr6161 [facility] [id number] Ratio LDL/HDL Ratio 1.7 {ratio_units} (Normal) Range: 0.0-3.2 LDL Cholesterol Calc 118 mg/dL (Abnormal) Range: 0-99 VLDL Cholesterol Aneesh 13 mg/dL (Normal) Range: 5-40 HDL Cholesterol 71 mg/dL (Normal) Comments: According to ATP-III Guidelines, HDL-C >59 mg/dL is considered anegative risk factor for CHD. Triglycerides 65 mg/dL (Normal) Range: 0-149 Cholesterol, Total 202 mg/dL (Abnormal) Range: 100-199 :41 Microalb/Creat Ratio, Randm Ur Comments: PATIENT WAS FASTINGPERFORMED BY: [facility]6370 [facility] [id number] Microalb/Creat Ratio 5.5 {mg/g_creat} (Normal) Range: 0.0-30.0 Microalbumin, Urine 9.9 ug/mL (Normal) Range: 0.0-17.0 Creatinine, Urine 181.2 mg/dL (Normal) Range: 15.0-278.0 38-Wtk-945156:41 Microscopic Examination Comments: PATIENT WAS FASTINGPERFORMED BY: [facility]6370 [facility] [id number] Bacteria Few (Normal) Mucus Threads Present (Normal) Epithelial Cells (non >10 {/hpf} Range: 0 - 10 renal) (Abnormal) RBC 0-3 {/hpf} (Normal) Range: 0 - 3 WBC 0-5 {/hpf} (Normal) Range: 0 - 5 TSH 2.900 {uIU/mL} Comments: PATIENT WAS FASTINGPERFORMED BY: [facility]6370 [facility] [id number] 1:41 (Normal) Range: 0.450-4.500 88-Ehz-737473:41 Urinalysis, Complete Comments: PATIENT WAS FASTINGPERFORMED BY: [address] RoadDublin [place] [id number] Microscopic Examination See below: (Normal) Nitrite, Urine Negative (Normal) Urobilinogen,Semi-Qn 0.2 mg/dL (Normal) Range: 0.0-1.9 Bilirubin Negative (Normal) Occult Blood Negative (Normal) Ketones Negative (Normal) Glucose Negative (Normal) Protein Negative (Normal) WBC Esterase 1+ (Abnormal) Appearance Clear (Normal) Urine-Color Yellow (Normal) pH 6.5 (Normal) Range: 5.0-7.5 Specific [place] 1.024 (Normal) Range: 1.005-1.030 26-Wki-183492:45 URINALYSIS, W/ MICRO (56123) Comments: PATIENT WAS FASTINGPERFORMED BY: [facility]6370 [facility] [id number] Microscopic Examination See below: (Normal) Nitrite, Urine Negative (Normal) Urobilinogen,Semi-Qn 0.2 mg/dL (Normal) Range: 0.0-1.9 Bilirubin Negative (Normal) Ketones Negative (Normal) Occult Blood Negative (Normal) Glucose Negative (Normal) Protein 1+ (Abnormal) WBC Esterase 1+ (Abnormal) Appearance Turbid (Abnormal) Urine-Color Yellow (Normal) pH 8.5 (Abnormal) Range: 5.0-7.5 Specific [place] 1.027 (Normal) Range: 1.005-1.030 :45 TSH (09522) Comments: PATIENT WAS FASTINGPERFORMED BY: [facility]6370 [facility] [id number] TSH 1.890 {uIU/mL} (Normal) Range: 0.450-4.500 50-Vij-826535:45 MICROALBUMIN: CREATININE RATIO Comments: PATIENT WAS FASTINGPERFORMED BY: [place] 2780270 [facility] [id number] (43597) AND (74581) Microalb/Creat Ratio 9.5 {mg/g_creat} (Normal) Range: 0.0-30.0 Creatinine, Urine 186.1 mg/dL (Normal) Range: 15.0-278.0 Microalbumin, Urine 17.7 ug/mL (Abnormal) Range: 0.0-17.0 :45 METABOLIC PANEL, COMPREHENSIVE Comments: PATIENT WAS FASTINGPERFORMED BY: [employer]70 [facility] [id number] ([id number]) ALT (SGPT) 21 [iU]/L (Normal) Range: 0-40 [...] Glucose, Serum 98 mg/dL (Normal) Range: 65-99 71-Dsv-134490:45 LIPID PANEL (78393) Comments: PATIENT WAS FASTINGPERFORMED BY: [employer] SL6370 [facility] [id number] LDL/HDL Ratio 1.6 {ratio_units} (Normal) Range: 0.0-3.2 [...] 100-199 Comments: Please note reference interval change 98-Ccr-571024:45 CBC WITH MANUAL DIFF Comments: PATIENT WAS FASTINGPERFORMED BY: [facility] Wnapgh3095 [facility] [id number] Information: [id number] (61692) Immature Grans (Abs) 0.0 {x10E3/uL} (Normal) Range: [...] (Normal) Range: 4.0-10.5 :09 HgA1C , Office (48986) HgA1C , Office 6.0 % (Normal) Range: 4.6 - 7.1 :09 Blood Glucose , Office (37301) Blood Glucose , Office 79 (Normal) :33 Blood Glucose , Office (67269) Blood Glucose , Office 98 (Normal) :33 HgA1C , Office (56350) HgA1C , Office 6.0 % (Normal) Range: 4.6 - 7.1 :39 CBC & PLATELETS (AUTO) Comments: PATIENT WAS FASTINGPERFORMED BY: [facility] ImagingSaint Clare's Hospital at DenvilleYygfjp6317 [facility] [id number] (21903) Platelets 242 {x10E3/uL} (Normal) Range: 140-415 RDW 13.8 % (Normal) Range: 11.7-15.0 MCHC 33.2 g/dL (Normal) Range: 32.0-36.0 MCH 29.9 pg (Normal) Range: 27.0-34.0 Hematocrit 40.7 % (Normal) Range: 34.0-44.0 MCV 90 fL (Normal) Range: 80-98 Hemoglobin 13.5 g/dL (Normal) Range: 11.5-15.0 RBC 4.51 {x10E6/uL} (Normal) Range: 3.80-5.10 WBC 4.8 {x10E3/uL} (Normal) Range: 4.0-10.5 :39 METABOLIC PANEL, Comments: PATIENT WAS FASTINGPERFORMED BY: [facility] ImagingSaint Clare's Hospital at DenvilleHjgces1523 [facility] [id number] Information: [id number] COMPREHENSIVE (50687) ALT (SGPT) 20 [iU]/L (Normal) Range: 0-40 [...] Glucose, Serum 94 mg/dL (Normal) Range: 65-99 73-Cxp-210570:39 TSH (THYROID STIMULATING Comments: PATIENT WAS FASTINGPERFORMED BY: IkonisysCoSaint Clare's Hospital at DenvilleDizpjm7521 [facility] [id number] HORMONE) (55128) TSH 2.830 {uIU/mL} (Normal) Range: 0.450-4.500 :39 MICROALBUMIN URINE QUANT Comments: PATIENT WAS FASTINGPERFORMED BY: [employer] LabCoSaint Clare's Hospital at DenvilleKtovew7816 [facility] [id number] (51209) Creatinine, Urine 107.7 mg/dL (Normal) Range: 15.0-278.0 Microalb/Creat Ratio 4.0 {mg/g_creat} (Normal) Range: 0.0-30.0 Microalbumin, Urine 4.3 ug/mL (Normal) Range: 0.0-17.0 :39 LIPID PANEL (16668) Comments: PATIENT WAS FASTINGPERFORMED BY: DAI [facility] Wgsejc[address] [facility] [id number]; appt 06/25/11 LDL/HDL Ratio 1.9 {ratio_units} (Normal) Range: 0.0-3.2 LDL Cholesterol Calc 108 mg/dL (Abnormal) Range: 0-99 VLDL Cholesterol Aneesh 15 mg/dL (Normal) Range: 5-40 HDL Cholesterol 56 mg/dL (Normal) Comments: According to ATP-III Guidelines, HDL-C >59 mg/dL is considered anegative risk factor for CHD. Triglycerides 76 mg/dL (Normal) Range: 0-149 Cholesterol, Total 179 mg/dL (Normal) Range: 100-199 44-Xlk-503914:03 HEMOGLOBIN GLYCLATED (HGB Comments: PATIENT NOT FASTINGPERFORMED BY: [facility] Niydfp1494 [facility] [id number] Information: [id number] A1C) (87333) Hemoglobin A1c 6.0 % (Abnormal) Range: 4.8-5.6 Comments: Increased risk for diabetes: 5.7 - 6.4 Diabetes: >6.4 Glycemic control for adults with diabetes: <7.0 62-Hpu-937813:42 Blood Glucose , Office (75048) Blood Glucose , Office 120 (Normal) Comments: patient reported. Showed me on her meter and declined to have done in office today. 91-Erb-804979:32 Microscopic Examination Comments: PATIENT WAS FASTINGPERFORMED BY: [facility] Eppowb9570 [facility] [id number] Bacteria Moderate (Abnormal) Mucus Threads Present (Normal) Epithelial Cells (non renal) 0-10 {/hpf} (Normal) Range: 0 - 10 RBC 0-3 {/hpf} (Normal) Range: 0 - 3 WBC 0-5 {/hpf} (Normal) Range: 0 - 5 43-Ruq-029372:32 URINALYSIS, W/ MICRO (23821) Comments: PATIENT WAS FASTINGPERFORMED BY: HolganixSaint Clare's Hospital at DenvilleBozsim8913 [facility] [id number] Microscopic Examination See below: (Normal) Bilirubin Negative (Normal) Microscopic Examination MICRON (Normal) Comments: Microscopic follows if indicated. Nitrite, Urine Negative (Normal) Urobilinogen,Semi-Qn 0.2 mg/dL (Normal) Range: 0.0-1.9 Glucose Negative (Normal) Ketones Negative (Normal) Occult Blood Negative (Normal) Appearance Clear (Normal) Protein Negative (Normal) WBC Esterase Negative (Normal) pH 7.0 (Normal) Range: 5.0-7.5 Urine-Color Yellow (Normal) Specific [place] 1.020 (Normal) Range: 1.005-1.030 33-Acl-075020:32 METABOLIC PANEL, COMPREHENSIVE Comments: PATIENT WAS FASTINGPERFORMED BY: HolganixSaint Clare's Hospital at DenvilleUbbdrf2234 [facility] [id number] (80613) ALT (SGPT) 18 [iU]/L (Normal) Range: 0-40 [...] Glucose, Serum 90 mg/dL (Normal) Range: 65-99 95-Hxq-412906:32 CBC WITH MANUAL DIFF Comments: PATIENT WAS FASTINGPERFORMED BY: LabCoSaint Clare's Hospital at DenvilleDzpmsb6996 [facility] [id number] Information: [id number] (06259) Immature Grans (Abs) 0.0 {x10E3/uL} (Normal) Range: [...] 3.80-5.10 WBC 5.0 {x10E3/uL} (Normal) Range: 4.0-10.5 28-Sft-149308:32 TSH (65856) Comments: PATIENT WAS FASTINGPERFORMED BY: [address] [id number] TSH 3.890 {uIU/mL} (Normal) Range: 0.450-4.500 :32 MICROALBUMIN: CREATININE RATIO Comments: PATIENT WAS FASTINGPERFORMED BY: [address] [id number] (21532) AND (70415) Microalb/Creat Ratio 2.7 {mg/g_creat} (Normal) Range: 0.0-30.0 Microalbumin, Urine 3.2 ug/mL (Normal) Range: 0.0-17.0 Creatinine, Urine 117.9 mg/dL (Normal) Range: 15.0-278.0 :32 LIPID PANEL (98158) Comments: PATIENT WAS FASTINGPERFORMED BY: [place] 2780270 [facility] [id number] LDL/HDL Ratio 1.8 {ratio_units} (Normal) Range: 0.0-3.2 LDL Cholesterol Calc 115 mg/dL (Abnormal) Range: 0-99 VLDL Cholesterol Aneesh 16 mg/dL (Normal) Range: 5-40 HDL Cholesterol 64 mg/dL (Normal) Comments: According to ATP-III Guidelines, HDL-C >59 mg/dL is considered anegative risk factor for CHD. Triglycerides 79 mg/dL (Normal) Range: 0-149 Cholesterol, Total 195 mg/dL (Normal) Range: 100-199 40-Mqe-930666:29 PELVIC (NON ) Radiology See Note Comments: [...] on 08/10/10 1410 Sign by: Lizzy Day 15-Tbw-52253:00 TRANSVAGINAL NON- Radiology See Note Comments: ADDENDUM [...] is advised Dictated on 08/09/10 1436 by Shay TOBAR,Ortizranscribed on 17/06 0741 by ITS IMPORTSign by Lizzy Day MD [...] months is advised Dictated on 08/28/102202 by Shay TOBAR,NadieTranscribed on 08/28/102201 by ITS IMPORTSi gn by Lizzy Day MD on 01/02/111701 Sign by: Lizzy Day MD :44 PTT (ACTIVATED PARTIAL Comments: PATIENT NOT FASTINGPERFORMED BY: [place] 2780270 [facility] [id number] THROMBOPLASTIN TIME) (14647) aPTT 29 {sec} (Normal) Range: 24-33 Comments: This test has not been validated for monitoring unfractionated heparintherapy. aPTT-based therapeutic ranges for unfractionated heparintherapy have not been established. For general guidelines onHeparin monitoring, refer to the [facility] Directory of Services. 27-Ojx-418089:44 PT (PROTHROMBIN TIME) (73022) Comments: PATIENT NOT FASTINGPERFORMED BY: [facility]6370 [facility] [id number] Prothrombin Time 10.5 {sec} (Normal) Range: 8.7-11.5 INR 1.0 (Normal) Range: 0.8-1.2 Comments: Reference interval is for non-anticoagulated patients. . Suggested INR therapeutic range for Vitamin K anta gonist therapy: Standard Dose (moderate intensity therapeutic range): 2.0 - 3.0 Higher intensity therapeutic range 2.5 - 3.5 :44 PROLACTIN (73833) Comments: PATIENT NOT FASTINGPERFORMED BY: [facility] Koudxp8975 [facility] [id number] Prolactin 14.9 ng/mL (Normal) Range: 4.8-23.3 :44 METABOLIC PANEL, Comments: PATIENT NOT FASTINGPERFORMED BY: [facility] Vumarx6131 [facility] [id number] Information: [id number] COMPREHENSIVE (34112) ALT (SGPT) 22 [iU]/L (Normal) Range: 0-40 [...] Glucose, Serum 88 mg/dL (Normal) Range: 65-99 :44 TSH (87623) Comments: PATIENT NOT FASTINGPERFORMED BY: [facility]6370 [facility] [id number] TSH 2.410 {uIU/mL} (Normal) Range: 0.450-4.500 :44 CBC (AUTO) (04907) Comments: PATIENT NOT FASTINGPERFORMED BY: [facility]6370 [facility] [id number] MCHC 33.6 g/dL (Normal) Range: 32.0-36.0 Platelets 295 {x10E3/uL} (Normal) Range: 140-415 RDW 14.0 % (Normal) Range: 11.7-15.0 Hematocrit 38.7 % (Normal) Range: 34.0-44.0 MCH 30.1 pg (Normal) Range: 27.0-34.0 MCV 90 fL (Normal) Range: 80-98 Hemoglobin 13.0 g/dL (Normal) Range: 11.5-15.0 RBC 4.32 {x10E6/uL} (Normal) Range: 3.80-5.10 WBC 7.7 {x10E3/uL} (Normal) Range: 4.0-10.5 :23 HgA1C , Office (68120) HgA1C , Office 6.1 % (Normal) Range: 4.6 - 7.1 :23 Blood Glucose , Office (51332) Blood Glucose , Office 100 (Normal) :18 CBC With Differential/Platelet Comments: PATIENT WAS FASTINGPERFORMED BY: [facility]6370 [facility] [id number] Immature Grans (Abs) 0.0 {x10E3/uL} (Normal) Range: [...] 3.80-5.10 WBC 6.1 {x10E3/uL} (Normal) Range: 4.0-10.5 88-Byo-389909:18 Comp. Metabolic Panel (14) Comments: PATIENT WAS FASTINGPERFORMED BY: LabCoSaint Clare's Hospital at DenvilleThfoya1680 [facility] [id number] ALT (SGPT) 18 [iU]/L (Normal) Range: 0-40 [...] Glucose, Serum 99 mg/dL (Normal) Range: 65-99 21-Rui-349484:18 Lipid Panel With LDL/HDL Comments: PATIENT WAS FASTINGPERFORMED BY: [employer] [facility] [id number] Ratio HDL Cholesterol 53 mg/dL (Normal) Comments: [...] 2.770 {uIU/mL} Comments: PATIENT WAS FASTINGPERFORMED BY: [employer] [facility] [id number] :18 (Normal) Range: 0.450-4.500 :48 HgA1C , Office (19552) HgA1C , Office 6.2 % (Normal) Range: 4.6 - 7.1 :48 Blood Glucose , Office (74692) Blood Glucose , Office 97 (Normal) :46 CBC With Differential/Platelet Comments: PATIENT WAS FASTINGPERFORMED BY: LabCoMary Ville 2720470 [facility] [id number] Baso (Absolute) 0.0 {x10E3/uL} (Normal) Range: 0.0-0.2 [...] Panel (14) Comments: PATIENT WAS FASTINGPERFORMED BY: [facility] Jihrfj7802 [facility] [id number] A/G Ratio 1.5 (Normal) Range: 1.1-2.5 Albumin, [...] Serum 103 mg/dL (Abnormal) Range: 65-99 If -Ecuadorean >59 mL/min/1.73 Comments: Note: Persistent reduction for [...] With LDL/HDL Comments: PATIENT WAS FASTINGPERFORMED BY: [employer] SL6370 [facility] [id number] Ratio Cholesterol, Total 179 mg/dL (Normal) Range: [...] Cholesterol Aneesh 14 mg/dL (Normal) Range: 5-40 55-Rah-69540:46 Thyroxine (T4) Free, Direct, S Comments: PATIENT WAS FASTINGPERFORMED BY: LabCoSaint Clare's Hospital at DenvilleAarzsr6099 [facility] [id number] T4,Free(Direct) 1.13 ng/dL Range: 0.61-1.76 (Normal) 30-Jul-2008 Triiodothyronine,Free,Seru 3.0 pg/mL (Normal) Comments: PATIENT WAS FASTINGPERFORMED BY: LabCoSaint Clare's Hospital at DenvilleKvhilj3855 [facility] [id number] 9:46 m Range: 2.3-4.2 30-Jul-2008 TSH 2.949 {uIU/mL} Comments: PATIENT WAS FASTINGPERFORMED BY: LabCoSaint Clare's Hospital at DenvilleOjrqht4063 [facility] [id number] 9:46 (Normal) Range: 0.450-4.500 22-Koh-83481:43 Blood Glucose , Office (08199) Comments: done>Wf. Blood Glucose , Office 100 (Normal) 5-Hwj-912287:30 GLUP 105 mg/dL (Normal) Comments: GLU,2HPPG 75gm GLUC PPG GLUP from 1208:[id number]. 2-Aan-598852:24 ESR SED RATE 31 mm/h (Abnormal) Range: 0-30 8-Enw-496521:24 HGB A1C 6.7 % (Abnormal) Range: 4.0-6.3 Comments: The methodology of Hgb A1C has changed to [employer] BehringDimension RXL. No significant changes in patientresults are expected. The reference range remains the same. 1-Qtm-390168:03 BREAST UNILATERAL US () Radiology Report See Note (Normal) Comments: Exam Number: [id number] TARGETED RIGHT BREAST ULTRASOUND HISTORYAbnormal mammogram. High [...] Report See Note (Normal) Comments: Exam Number: [id number] TARGETED RIGHT BREAST ULTRASOUND HISTORYAbnormal mammogram. High-resolution [...] werealso examined with computer-aide d detection software (Phyzios.). Reported By: PHYLLIS HEWITT M.D. 21-Jul-20088:36 [facility] DIGITAL & CAD Radiology Report See Note (Normal) Comments: Exam Number: [id number] MAMMOGRAM, BILATERAL SCREENING DIGITAL AND CAD HISTORYRoutine [...] patient reported a previous study performed at [facility]. That examination was too old and [...] mammograms werealso examined with computer-aided detection software ([employer], Iiz[employer].). Reported By: PHYLLIS HEWITT M.D. 30-Ywz-21287:26 H pylori, IgM, IgG, IgA Ab Comments: PERFORMED BY: [facility]6370 [facility] [id number] H. pylori IgG, Abs <0.9 U/mL (Normal) [...] Plan of Care Name Dates Details Instructions Physical exam WITHOUT abnormal findings (Renamed from [...] Diarrhea Unspecified osteoarthritis, unspecified site : Reviewed [place] Letter Indication: Unspecified osteoarthritis, unspecified site Controlled [...] Uncontrolled type II diabetes mellitus Planned Observations Cologuard - Strool Based DNA Test, CRC SCREEN (89928)Indication: Screening for colon cancer On: 40-Ltm-166216:51 Request TSH (65736)Indication: Controlled diabetes mellitus type II without complication On: 6-Wxq-415815:53 Request URINALYSIS, W/ MICRO (02852)Indication: Controlled diabetes mellitus type II without complication On: 6-Hup-848233:53 Request MICROALBUMIN: CREATININE RATIO (45992) AND (57218)Indication: Controlled diabetes mellitus type II without complication On: 8-Ktq-836885:53 Request METABOLIC PANEL, COMPREHENSIVE (43268)Indication: Controlled diabetes mellitus type II without complication On: 3-Hxj-878074:53 Request LIPOPROTEIN, BLD, BY NMR (41817)Indication: Controlled diabetes mellitus type II without complication On: 7-Vna-879781:53 Request LIPID PANEL (39917)Indication: Controlled diabetes mellitus type II without complication On: 3-Exd-061910:53 Request CBC W/AUTO DIFF WBC (97227)Indication: Controlled diabetes mellitus type II without complication On: 7-Tqq-883144:52 Request HGB A1C (34702)Indication: Controlled diabetes mellitus type II without complication On: 22-Mar-20178:18 Request LIPID PANEL (28968)Indication: Hypercholesteremia On: 22-Mar-20178:17 Request HGB A1C (91961)Indication: Uncontrolled type II diabetes mellitus On: 31-Oct-2016 Request POTASSIUM SERUM (38012)Indication: High potassium On: 1-Iht-559210:06 Request HELICO PYLORI, STOOL, INFCT ANTIGEN (52129)Indication: NSAID long-term use On: 9-Irs-468829:05 Request TSH (26830)Indication: Uncontrolled type II diabetes mellitus On: 8-Dhe-194079:58 Request TSH (88520)Indication: Pain in unspecified joint On: 91-Ehn-195346:41 Request CBC WITH MANUAL DIFF (74331)Indication: Pain in unspecified joint On: 59-Dwl-381376:41 Request METABOLIC PANEL, COMPREHENSIVE (29725)Indication: Pain in unspecified joint On: 74-Gxq-899167:41 Request URINALYSIS, W/ MICRO (34532)Indication: Benign essential hypertension On: 80-Hye-090820:06 Request MICROALBUMIN: CREATININE RATIO (27437) AND (22319)Indication: Benign essential hypertension On: 41-Cpv-384853:06 Request URINE CED CULTURE-IDENTIFICATN (62928)Indication: Other abnormal finding of urine On: 40-Pie-721810:56 Request TSH (71261)Indication: Controlled diabetes mellitus type II without complication On: :41 Request URINALYSIS, W/ MICRO (38502)Indication: Benign essential hypertension On: 3-Fdf-324994:41 Request MICROALBUMIN: CREATININE RATIO (87810) AND (30849)Indication: Benign essential hypertension On: :41 Request METABOLIC PANEL, COMPREHENSIVE (69412)Indication: Benign essential hypertension On: :41 Request LIPID PANEL (79661)Indication: Benign essential hypertension On: :41 Request CBC WITH MANUAL DIFF (52462)Indication: Benign essential hypertension On: :41 Request TSH (56543)Indication: Uncontrolled type II diabetes mellitus On: :37 Request METABOLIC PANEL, COMPREHENSIVE (93060)Indication: Uncontrolled type II diabetes mellitus On: :36 Request MICROALBUMIN: CREATININE RATIO (46112) AND (36861)Indication: Uncontrolled type II diabetes mellitus On: :36 Request LIPID PANEL (62987)Indication: Uncontrolled type II diabetes mellitus On: :36 Request CBC WITH MANUAL DIFF (01652)Indication: Uncontrolled type II diabetes mellitus On: :36 Request H. PYLORI BLD TEST UREASE NON-RAD (01277)Indication: Epigastric pain On: 89-Gsm-93571:09 Request Planned Encounters Medical; 3 Month FU - On: 21-Jul-2018 11:45 [facility] Nina Jiménez DO, DO, Kathleen Planned Procedures Bone Density StudyBy: Tino ALONSO, On: 03-Jul-2018 Intent Nina Stover DO MAMMOGRAM BREAST BILATERAL On: 03-Jul-2018 Intent SCREENING DIGITAL (29262)By: Nina Jiménez DO, DO, Kathleen CT SCAN OF ABDOMEN AND PELVIS WITH On: 26-Jul-2017 Intent CONTRAST (33373)By: Nina Jiménez DO, DO, Kathleen ELECTROCARDIOGRAM, COMPLETE (ECG) On: 26-Jul-2017 Intent (62622)By: Nina Jiménez DO Comments: nsr no acute chg Nina Jiménez DO MAMMOGRAM, SCREENING, BOTH BREAST On: 01-Nov-2016 Intent (82825)By: Nina Jiménez DO, DO, Kathleen Echo CompleteBy: Tino ALONSO, On: 18-May-2016 Intent Nina Stover DO Comments: dr mckee Holter Monitor 24 hrsBy: Tino On: 04-May-2016 Intent Nina ALONSO DO, Kathleen ELECTROCARDIOGRAM, COMPLETE (ECG) On: 04-May-2016 Intent (56321)By: Nina Jiménez DO Comments: ? a fib vs atrial tachycardia - df rev as well -- thought maybe some flutter trying to breakthru where we see P waves -- pt asx and hemodynamically stable Nina Jiménez DO MRI ANKLE LEFT WO CONTRAST On: 14-Nov-2015 Intent (68528)By: Nina Jiménez DO, DO, Kathleen Aerosol Treatment (05711)By: Slarb On: 08-Dec-2014 Intent Nette VASQUEZ EKG (65782)By: Tino ALONSO, On: 16-Aug-2014 Intent Nina Stover DO Comments: nsr no acute chg Upper EndoscopyBy: Kacey Patton CNP On: 09-Jul-2014 Intent E Endoscopy - OtherBy: Abdi WHITLOCK, On: 09-Jul-2014 Intent Kacey Sanchez MRI - Knee(s) - RightBy: Abdi On: 09-Jul-2014 Intent CHINYERE Emi Endoscopy - Small Bowel SeriesBy: On: 21-Jun-2014 Intent Abdi WHITLOCK Emi Nuclear Medicine - HIDA w/CPKBy: On: 21-Jun-2014 Intent Abdi WHITLOCK Emi Ultrasound - GallbladderBy: Ciesa On: 21-Jun-2014 Intent CHINYERE Emi Comments: in normal proceed with Hida scan Eprescribed prescriptions On: 13-Jan-2014 Intent (G8553)By: Nina Jiménez DO, DO, Kathleen Eprescribed prescriptions On: 18-Sep-2013 Intent (G8553)By: Sushila Harris Eprescribed prescriptions On: 08-Jul-2013 Intent (G8553)By: Geovanna Nuñez LPN EKG (63630)By: Trisha Emery MD On: 03-Jul-2013 Intent Comments: see scanned document of test done to see results reviewed today with patient Eprescribed prescriptions On: 08-Apr-2013 Intent (G8553)By: Geovanna Nuñez LPN EKG (70921)By: Tino ALONSO, On: 18-Aug-2012 Intent Nina Stover DO Comments: nsr no acute chg Eprescribed prescriptions On: 18-Aug-2012 Intent (G8553)By: Lidya Stephenson LPN Eprescribed prescriptions On: 08-May-2012 Intent (G8553)By: Nina Jiménez DO, DO, Kathleen Eprescribed prescriptions On: 08-May-2012 Intent (G8553)By: Geovanna Nuñez LPN CT - Neck (IV Contrast Needed)By: On: 28-Oct-2011 Intent Nina Jiménez DO, DO, Comments: follow up original image done at [facility]-- ( mri cervical spine) Nina EKG (40177)By: Tino ALONSO, On: 25-Jul-2011 Intent Nina Stover DO Comments: NSR NO ACUTE CHG Ultrasound - PelvisBy: Tino ALONSO, On: 01-Dec-2010 Intent Nina Stover DO Ultrasound - PelvisBy: Tino ALONSO, On: 02-Aug-2010 Intent Nina Stover DO Comments: may do vaginal probe if need to EKG (75146)By: Tino ALONSO, On: 16-Feb-2010 Intent Nina Stover DO Comments: nsr no acute chnages FLU VAC, SPLIT, >3 YEARS, On: 29-Jul-2008 Intent INTRAMUSC (64318)By: Nina Jiménez DO DONina IMMUNIZ ADMNIN, 1 VAC, SNGL/COMBO On: 29-Jul-2008 Intent (69835)By: Nina Jiménez DO Comments: lot # [id number]- 02/15/0996bcln-EVLXsdjys-HLoxja- 0.5ML chenderson tolerated well Tino DO, Nina IMMUNIZ ADMNIN, 1 VAC, SNGL/COMBO On: 29-Jul-2008 Intent (12087)By: Nina Jiménez DO Comments: lot # [id number]- 12/27/20193531mkxx-JIOOnnaxr-NWfwvu- O.5ML chenderson tolerated well Tino DO, Nina PNEUM VAC ADLT/IMUMNOSPR, On: 29-Jul-2008 Intent SBC/INTRM (04298)By: Nina Jiménez DO, DO, Kathleen EKG (54930)By: Tino , On: 29-Jul-2008 Intent Nina Stover DO MAMMOGRAM, SCREENING, BOTH BREASTS On: 04-Jun-2008 Intent ([id number])By: Jojo Santoyo Instructions Name Dates Details Physical exam WITHOUT abnormal findings (Renamed from [...] II without complication Encounters Office Visit On: 03-Jul-2018 11:40 Encounter Reason: [...] Pain,Unspecified Site (789.00) [facility]; dia guarantor
--- OUTSIDE RECORDS SUMMARY | 2018-09-13 21:02 | XMS RPT_ITS | Continuity of Care Document ---
:1955 Author Organization [facility] Address [facility] [address] Phone Care Team Providers Name Role Phone [...] : 08-Jun-2008 Discontinued Comments:This order discontinued per [facility]. PENLAC, 8% (External Solution) apply Solution topically [...] VAC ADLT/IMUMNOSPR, Date: 14-Nov-2015 Completed 14-Nov-2015 SBC/INTRM (55307) Comments: Lot:[id number]:04/05/17Dose:0.5mgRoute:imSite:david Boo By:WILLI signed Cardioversion Completed Comments: 2015 Colonoscopy Completed Comments: 07-27-08 - Diverticulitis Diverticulitis (562.11) Completed Comments: Colonoscopy 07-27-08 lt finger sx Completed Comments: 03/01 Date Value Details 22-Apr-2018 12 Lead Electrocardiogram Result: Comments: See Note; NOTES: [facility] Cardiovascular Services [address] [place] [address] 12 Lead EKG 04/19/18 1456 MR#: [id number] Acct: [id number] Name: NINA AYON ep #: [id number] : 1955 62 From: Bright Peng MD [...] Borderline ECG Confirmed by BRIGHT PENG ([id number]), story editor OBDULIO PURDY ([id number]) on 04/22/2018 1:27:45 PM Referred By: JOHN Confirmed By: BRIGHT PENG 04/22/18 1327 Date Bright Peng MD CC: Nina Jiménez DO; Cedric Sylvester MD Signed 19-Apr-2018 Emergency Department Summary Result: Comments: See Note; NOTES: [facility] Medical Records Department [address] [place] [address] Emergency Department Summary 04/19/18 1653 MR#: [id number] Acct: [id number] Name: NINA AYON Rep #: [id number] : 1955 62 From: Cedric Sylvester MD [...] pleuritic component This note was generated with [employer] dictation software. It may contain incorrect words, [...] your Primary Care Provider. Call [facility] ([phone]) or report to the closest Emergency Room. Call 911 if necessary. 04/19/18 1701 <Electronically signed by Cedric Sylvester MD> Date Cedric Sylvester MD Cosig ner Signature (If Indicated): Date CC: Nina Jiménez DO 19-Apr-2018 Chest 1 View (Portable) Result: Comments: See Note; NOTES: [facility] Imaging Services [address] [place] [address] Chest 1 View (Portable) MR#: [id number] Acct: [id number] Name: NINA AYON Rep #: [id number] : 1955 F 62 From: Dolly Hardy MD PCP: Nina Jiménez DO Status: PRE ER Study: Chest 1 View (Portable) Date of Exam: 04/19/18 Exam# [id number] Ordering Dr: Cedric Sylvester MD STUDY: X-RAY [...] CC: Nina Jiménez DO; Cedric Sylvester MD Dipper And Baker: Signed 10-Feb-2018 Cardiology Visit Report Result: Comments: See Note; NOTES: [facility] [address] [place] [address] OFFICE VISIT Date of Service: 02/10/18 MR#: [id number] Acct: [id number] Name: NINA AYON Rep #: [id number] : 1955 Provider: KATHY Snider Age/Sex: 62/F Location[facility] Status: Signed HPI HPI Details: NINA [...] insufficiency (Chronic) Paroxysmal atr ial fibrillation (Acute) snf (current) use of anticoagulants (Chronic) GERD (gastroesophageal [...] underwent a transthoracic echocardiogram on 11/07/2016 at [facility]. 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. MINIMUM HEART RATE WAS 92 BPM AT [...] We will continue to monitor this. 7. snf (current) use of anticoagulants Z79.01 Plan If [...] (valve) insufficiency I36.1 Paroxysmal atrial fibrillation I48.0 snf (current) use of anticoagulants Z79.01 Anxiety F41.9 Coding Level of Care Code Off v is,est,level 3 Diagnoses Abnormal stress test R94.39 Essential hypertension I10 Hyperlipidemia, unspecified hyperlipidemia type E78.5 Nonrheumatic mitral valve regurgitation I34.0 Nonrheumatic tricuspi d (valve) insufficiency I36.1 Paroxysmal atrial fibrillation I48.0 snf (current) use of anticoagulants Z79.01 Anxiety F41.9 02/10/18 1506 <Electronically signed by Dusty MORALES& #62; Date Dusty MORALES Cosigner Signature: Date (if applicable) CC: Nina Jiménez DO 10-Feb-2018 Chest PA and Lateral Result: Comments: See Note; NOTES: [facility] Imaging Services [address] [place] [address] Chest PA and Lateral MR#: [id number] Acct: [id number] Name: GABOJINNINA B Rep #: [id number] : 1955 F 62 From: Leslye Sue MD PCP: Nina Jiménez DO Status: REG CLI Study: Chest PA and Lateral Date of Exam: 02/10/18 Exam# [id number] Ordering Dr: Haile Mckee MD STUDY: X-RA [...] CC: Nina Jiménez DO; Haile Mckee MD Dipper And Baker: Signed 04-Feb-2018 Stress Report Result: Comments: See Note; NOTES: [facility] Cardiovascular Services [address] [place] [address] MR#: [id number] Acct: [id number] Name: GABONINA B Rep #: [id number] : 62 From: Haile Mckee MD Primary [...] and occasional PVCs during recovery. The functional [facility] was considered average. There was no [...] %. Thi s note was generated with [employer] software. It may contain incorrect words, spelling, and punctuation that were not noted in checking the note before signing. 02/04/18 6260 <Randy person signed by Haile Mckee MD> Date Haile Mckee MD CC: Nina Jiménez DO; Haile Mckee MD Date Dictated: 02/04/18 1354 Date Transcribed: 02/04/181353 Dipper And Baker: PM Signed 09-Jan-2018 Cardiology Visit Report Result: Comments: See Note; NOTES: [facility] [address] [place] [address] OFFICE VISIT Date of Service: 01/09/18 MR#: [id number] Acct: [id number] Name: NINA AYON Rep #: [id number] : 1955 Provider: Haile Mckee MD Age/Sex: 62/F Location: [facility] Status: Signed HPI HPI Details: NINA [...] (valve) insufficiency (Chronic) Paroxysmal atrial fibrillation (Acute) snf (current) use of a nticoagulants (Chronic) GERD [...] underwent a transthoracic echocardiogram on 11/07/2016 at [facility]. The results are as noted [...] management and follow- up. Orders Orders: 7. 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 Coding Level of Care Code Off vis,est,level 4 Diagnoses Chest pain, unspecified type R07.9 Chest pain type: unspecified Paroxysmal atrial fibrillation I48.0 Nonrheumatic mitral valve insufficiency I34.0 Non-rheumatic tricuspid valve insufficiency I36.1 Hyper lipidemia, unspecified hyperlipidemia type E78.5 Hyperlipidemia type: unspecified Essential hypertension I10 Hypertension type: essential hypertension snf current use of anticoagulant Z79.01 1103 <Electronically signed by Haile Mckee MD> Date Haile Mckee MD Cosigner Signature: Date (if applicable) CC: Nina Jiménez DO 09-Jan-2018 12 Lead EKG performed by [facility] Result: Comments: See Note; NOTES: [facility] [address] [place] [address] 12 Lead EKG performed by [facility] 01/09/185 MR#: [id number] Acct: [id number] Name: NINA AYON Rep #: [id number] : 1955 62 From: Haile Mckee MD Attending Dr: Haile Mckee MD Status: DEP [facility] Ordering Dr: Haile Mckee MD Date: 01/09/18 Location: [facility] Sex: F C Admitted : BMS/12 Lead EKG performed by [facility] ECG Report Interpretation Sinus Rhythm - occasional ectopic ventricular beat Electronically signed on 01/09/2018 at 12:2 4 by Haile Mckee 01/09/181226 Date Haile Mckee MD CC: Nina Jiménez DO Date Dictated: 01/09/181024 Date Transcribed: 01/09/181024 Dipper And Baker: PM Signed 09-Aug-2017 Abdomen/Pelvis WITH Contrast Result: Comments: See Note; NOTES: [facility] Imaging Services [address] [place] [address] Abdomen/Pelvis WITH Contrast MR#: [id number] Acct: [id number] Name: NINA AYON Rep # : [id number] : 1955 F 62 From: Ganga Argueta PCP: Nina Jiménez DO Status: REG CLI Study: Abdomen/Pelvis WITH Contrast Date of Exam: 08/09/17 Exam# [id number] Ordering Dr: Nina Jiménez DO STUDY: CT [...] of the lumbar spine. ORDE R #: [id number] CT/Abdomen/Pelvis WITH Contrast IMPRESSION: No acute findings in the abdomen or pelvis. Normal appendix. No hydronephrosis or urinary tract stones. No evidence of bowel obstruction. M ild sigmoid colon diverticulosis. Moderate size hiatal hernia. Electronically Signed: Ganga Argueta MD at 8:11 EST , Service support , CC: Nina Jiménez DO Dipper And Baker: Signed 07-Nov-2016 Echocardiogram Complete Result: Comments: See Note; NOTES: [facility] Cardiovascular Services [address] [place] [address] Echo Complete 11/07/16 1027 MR#: [id number] Acct: [id number] Name: NINA AYON Rep #: [id number] : 1955 61 From: Haile Mckee MD Attending Dr: Sanam Coronel NP Status: REG CLI Ordering Dr: Sanam Coronel E [employer]-C Date: 11/07/16 Location: [facility] Sex: F C Admitted: [place] son For Study: Afib Procedure This was [...] Date Haile Mckee MD CC: Sanam Coronel [employer]; Nina Jiménez DO Date Dictated: 11/07/16 1027 Date Transcribed: 11/07/161733 Dipper And Baker: Signed 02-Nov-2016 SCREENING MAMM (CAD), BILAT Result: Comments: See Note; NOTES: [facility] Imaging Services [address] [facility] [address] Verdana 4d SCREENING MAMM (CAD), BILAT MR#: [id number] Acct: [id number] Name: DARÍO AYON Rep #: [id number] : 1955 F 61 From: Jaya Mac MD PCP: Nina Jiménez DO Status: REG I Study: SCREENING MAMM (CAD), BILAT Date of Exam: 11/02/16 Exam# [id number] Ordering Dr: Nina Kingsley DO MAMMOGRAPHY - [...] will be sent to the patient by [facility] within 30 days. Approximately 10% of breast cancers are not detected by mammography. A normal mammogram should not delay biopsy of a clinically suspicious abnormality. [id number] Electronicall y Signed: Jaya Mac MD at 8:27 EDT Tel [phone], Service support [phone], CC: Nina Jiménez DO Dipper And Baker: Signed 04-Jul-2016 Operative Report Result: Comments: See Note; NOTES: [facility] Medical Records Department [address] [place] [address] Operative Report MR#: [id number] Acct: [id number] Name: NINA AYON Rep #: [id number] : 1955 61 From: Juan Covington MD PCP: Nina Jiménez DO Status: [facility] DATE OF SERVICE: 07/03/2016 DATE [...] MD Primary Care Physician T: NTS JOB: [id number] 07/04/16 0615 <Electronically signed by Juan Covington MD> Date Juan Covington MD Cosigner Signature (If Indicated): Date CC: Juan Covington MD; Nina Jiménez DO; Haile Mckee MD Date Dictated: 07/03/16 1104 Date Transcribed: 07/03/161103 Dipper And Baker: Signed 03-Jul-2016 Operative Report Result: Comments: See Note; NOTES: [facility] Medical Records Department [address] [place] [address] Operative Report 07/03/16 1642 MR#: [id number] Acct: [id number] Name: DARÍO AYON Rep #: [id number] : 1955 61 From: Haile Mckee MD PCP: Nina Jiménez DO Status: [facility] Y Location: [facility] Problem List (1) Atrial fibrillation Status: [...] complica tions This note was generated with [employer] dictation software. It may contain incorrect words, spelling, and punctuation that were not noted in checking the note before signing. 07/03/16 1644 &#6 0;Electronically signed by Haile Mckee MD> Date Haile Mckee MD CC: Nina Jiménez DO; Haile Mckee MD Signed 03-Jul-2016 Echo Transesophageal (KATHY) Result: Comments: See Note; NOTES: [facility] Cardiovascular Services [address] [place] [address] Echo Transesophageal (KATHY) 07/03/16 0947 MR#: [id number] Acct: [id number] Name: TESSA AYALANINA B Rep #: [id number] : 1955 61 From: Haile Mckee MD Attending Dr: Haile Mckee MD Status: [facility] Ordering Dr: Haile Mckee MD Date: 07/03/16 Location: [facility] Sex: F C Admitted: Reason For Study: AFIB Medication KATHY probe passed with minimal difficulty. Cetacaine Topical Rankin given X3 orally. Versed 2 mg given [...] Dictated: 07/03/16 0947 Date Transcribed: 07/03/16 1436 Dipper And Baker: Signed 28-Jun-2016 Chest PA and Lateral Result: Comments: See Note; NOTES: [facility] Imaging Services [address] [place] [address] Verdana 4d Chest PA and Lateral MR#: [id number] Acct: [id number] Name: NINA AYON #: [id number] : 1955 F 61 From: Johnathon Meza PCP: Nina Jiménez DO Status: PRE [facility] Study: Chest PA and Lateral Date of Exam: 06/28/16 Exam# [id number] Ordering Dr: Haile Mckee MD STUDY: X-RAY [...] at 6:38 EST Tel , Service support [phone], CC: Nina Jiménez DO; Haile Mckee MD Dipper And Baker: Signed 19-Jun-2016 Nuclear Stress Test - Chemical Result: Comments: See Note; NOTES: [facility] Imaging Services [address] [place] [address] Candie 4d Nuclear Stress Test - Chemical MR#: [id number] Acct: [id number] Name: Ashlee AYON Rep #: [id number] : 1955 61 From: Haile Mckee MD [...] 60%. Haile Mckee MD T: NTS JOB: [id number] 06/19/161936 <Electronically signed by Haile Mckee MD> Date Haile Mckee MD CC: Nina Diop on DO; Haile Mckee MD Date Dictated: 06/19/161406 Date Transcribed: 06/19/161406 Dipper And Baker: Signed 08-Jun-2016 Echocardiogram Complete Result: Comments: See Note; NOTES: [facility] Cardiovascular Services [address] [facility] [place] [address] Echo Complete 06/08/16 1319 MR#: [id number] Acct: [id number] Name: NINA AYON Rep #: [id number] : 1955 61 From: Haile Mckee MD Attending Dr: Nina Jiménez DO Status: REG CLI Ordering Dr: Nina Jiménez DO Date: 06/08/16 Location: [facility] Sex: F C Admitted: Reas on For [...] Date Dictated: 06/08/16 1319 Date Transcribed: 06/08/161731 Dipper And Baker: Signed 06-Jul-2014 Hepatobilliary Imaging Result: Comments: See Note; NOTES: [facility] Imaging Services [address] [place] [address] Nuclear Medicine Report MR#: [id number] Acct: [id number] Name: NINA AYON Rep #: [id number] : 1955 F 59 From: Steven Cunha DO PCP: Nina Jiménez DO Status: REG CLI Study: Hepatobilliary Imaging Date of Exam: 07/06/14 Exam# [id number] Ordering Dr: Kacey Patton CL INICAL: 59-year-old [...] Cunha DO at 8:3 5 EST Tel [phone], Service support [phone], CC: Kacey Jiménez DO Dipper And Baker: Signed 02-Jul-2014 Small Bowel Series Only Result: Comments: See Note; NOTES: [facility] Imaging Services [address] [place] [address] Radiology Report MR#: [id number] Acct: [id number] Name: NINA AYON Rep #: [id number] : 1955 F 59 From: Jaya Mac MD PCP: Nina Jiménez DO Status: REG CLI Study: Small Bowel Series Only Date of Exam: 07/02/14 Exam# [id number] Ordering Dr: Kacey Patton CEDURE: SMALL BOWEL [...] Mac MD 11/27/13 at 11:02 EST Tel [phone], Service support [phone], RAD/Small Bowel Series Only IMPRESSION: Normal small bowel series. Electronically Signed: Jaya Mac MD at 11:02 EST Tel [phone], Service support [phone], CC: Kacey Patton; Nina Jiménez DO Dipper And Baker: Signed 23-Jun-2014 Gallbladder Result: Comments: See Note; NOTES: [facility] Imaging Services [address] [address] Ultrasound Report MR#: [id number] Acct: [id number] Name: NINA AYON Rep #: [id number] : 1955 F 59 From: Jaya Mac MD PCP: Nnia Jiménez DO Status: REG CLI Study: Gallbladder Date of Exam: 06/23/14 Exam# [id number] Ordering Dr: Kacey Patton STUDY: ABDOMIN AL [...] Jaya Mac MD at 11:48 EST Tel [phone], Service support [phone], CC: Kacey Patton; Nina Jiménez DO Dipper And Baker: Signed Immunization Name Dates Details Influenza (3 years and up) on: 29-Jul-2008 Pneumococcal (2 years and up) on: 14-Nov-2015 Comments: Site: Deltoid (Left) Lot #: [id number] Pneumococcal (2 years and up) on: 29-Jul-2008 Social History Name Dates Details Tobacco use: Never smoker. Status: Active Smoking Status Name Dates Details Never smoker Vital Signs Date Test Result Details 87-Wna-376575:41 Temperature 97.9 f Comments: Method: Temporal Pulse [...] kg/m2 Body Surface Area Calculated 2.19 m2 8-Udl-279279:32 Temperature 97.6 f Comments: Method: Temporal Pulse [...] kg/m2 Body Surface Area Calculated 2.22 m2 46-Bij-884586:57 Pulse 68 /min Comments: Pattern: Regular Respiration [...] Date Description Value Details :39 Lipase Comments: [facility] [address] [place], [place], [address] LIPASE 127 U/L (Normal) Range: 73-393 8-Dea-241910:39 Liver Profile Comments: [facility] [address] [place], [place], [address] D BILI 0.07 mg/dL (Normal) Range: 0.00-0.30 T BILI 0.30 mg/dL (Normal) Range: 0.20-1.00 ALT 37 U/L (Normal) Range: 13-56 ALK P 88 U/L (Normal) Range: 45-117 AST 30 U/L (Normal) Range: 15-37 GLOB 3.6 g/dL (Normal) Range: 2.2-4.2 ALB 3.9 g/dL (Normal) Range: 3.2-5.0 T PROT 7.5 g/dL (Normal) Range: 6.4-8.2 :10 Basic Metabolic Profile (BMP) Comments: [facility] [address] [facility] [place], [place], [address] GAP 9 (Normal) Range: 5-15 CO2 26.0 [...] A.D.A. criteria.Please note revised GLUCOSE reference range herpyahyl98/02/2018. 7-Pwf-018973:10 CBC W/Diff, Automated Comments: [facility] [address] [place], [place], [address] Absolute Lymph 1.31 {X10_3/ul} (Normal) Range: 0.83-4.51 [...] Range: 4.4-11.0 :10 Prothrombin Time w/INR Comments: [facility] [address] [place], [place], [address] INR 1.5 (Normal) PROTIME 17.9 s (Abnormal) Range: 11.7-14.9 3-Vfq-380084:10 Troponin-I Comments: [facility] [address], [address] TROPONIN-I < 0.015 ng/mL (Normal) Comments: TROPONIN-I EXPECTED VALUES <0.045 Negative 0.045 - 0.590 Consistent with Cardiac Damage > OR = 0.600 Critical Value Not every elevated troponin is indicative of GA. T hesevalues should be used with clinical judgement in examiningthe patient's clinical picture for diagnosis. To establisha diagnosis of GA versus myocardial injury, there must be ademonstrated rise and/ or fall in the troponin values, inaddition to ischemic symptoms, EKG changes, new regionalwall motion abnormality, and/or angiographical evidence. PLEASE NOTE: REFERENCE RANGES EDITED 12/30/1710-Feb-201819-Pwz-473611:44 Basic Metabolic Profile (BMP) Comments: [facility] [address] [place], [place], [address] GAP 8 (Normal) Range: 5-15 CO2 28.0 [...] A.D.A. criteria.Please note revised GLUCOSE reference range lbhngixne60/02/2018. 87-Ite-423533:44 CBC-Complete Blood Cnt No Diff Comments: [facility] [address] [place], [place], [address](564) MPV 11.4 fL (Normal) Range: 6.2-12.0 PLT [...] 4.2-5.4 WBC 6.2 K/mm3 (Normal) Range: 4.4-11.0 80-Kaa-701740:44 Partial Thromboplast Time Comments: [facility] [address] [place], [place], [address] PTT 37.7 s (Abnormal) Range: 24.1-36.2 :44 Prothrombin Time w/INR Comments: [facility] [address] [place], [place], [address] INR 1.8 (Normal) PROTIME 21.0 s (Abnormal) Range: 11.7-14.9 9-Ncg-780438:37 Urinalysis, Office (39250) UA - LEUKOCYTE ESTERASE Moderate (Normal) UA - NITRITE Negative (Normal) URINE UROBILINGN RUBEN TIMED 2 mg/dL (Normal) UA - PROTEIN Negative mg/dL (Normal) UA - PH 7.0 (Normal) UA - BLOOD Hemolyzed Trace (Normal) UA - SPECIFIC GRAVITY 1.010 (Normal) UA - KETONES Negative mg/dL (Normal) UA - BILIRUBIN Negative (Normal) UA - GLUCOSE Negative (Normal) 8-Lzu-680688:33 Blood Glucose , Office (37575) Blood Glucose , Office 131 (Normal) 4-Rbv-296731:33 HgA1C , Office (70645) HgA1C , Office 5.9 % (Normal) Range: 4.6 - 7.1 :22 H-Pylori IGA,IGG,IGM (62659) Comments: PATIENT NOT FASTINGPERFORMED BY: ADI [facility] SystemJvagkk[facility]90 [facility] [id number] H pylori, IgM Abs <9.0 {units} (Normal) Range: 0.0-8.9 Comments: Negative <9.0 Equivocal 9.0 - 11.0 Positive >11.0 .This test was developed and its performance characteristicsdetermined by [facility]. It has not been cleared or approvedby the Food and Drug Administration. H. pylori, IgA Abs <9.0 {units} (Normal) Range: 0.0-8.9 Comments: Negative <9.0 Equivocal 9.0 - 11.0 Positive >11.0 H. pylori, IgG Abs <0.9 U/mL (Normal) Range: 0.0-0.8 Comments: Negative <0.9 Indeterminate 0.9 - 1.0 Positive >1.0 Effective August the reference interval will be changing to: Negative <0.8 Equivocal 0.8 Positive >0.8 4-Ynv-105121:19 Microscopic Examination Comments: PATIENT WAS FASTINGPERFORMED BY: ADI [facility] HospitalHdmhkw2171 [facility] [id number] Bacteria Few (Normal) Mucus Threads Present (Normal) Epithelial Cells (non renal) >10 {/hpf} (Abnormal) Range: 0 - 10 RBC 3-10 {/hpf} (Abnormal) Range: 0 - 2 WBC >30 {/hpf} (Abnormal) Range: 0 - 5 8-Kwi-445959:21 Basic Metabolic Profile (BMP) Comments: Order Date: 05/08/17Order Info: 0667-1 - *BMPComments: Reason:[facility] [address] [place], [place], [address] GAP 5 (Normal) Range: 5-15 CO2 31.0 [...] 7-18 GLU 93 mg/dL (Normal) Range: 70-110 04-Ode-189176:34 HGB A1C (52324) Comments: PATIENT WAS FASTINGPERFORMED BY: ADI [facility]6370 [facility] [id number] Hemoglobin A1c 6.5 % (Abnormal) Range: 4.8-5.6 Comments: . Pre-diabetes: 5.7 - 6.4 Diabetes: >6.4 Glycemic control for adults with diabetes: <7.0 :34 MICROALBUMIN: CREATININE RATIO Comments: PATIENT WAS FASTINGPERFORMED BY: [facility]Pres[facility] Kaseman HospitalVpngyz3952 [facility] [id number] (52810) AND (27602) Microalb/Creat Ratio <13.7 {mg/g_creat} (Normal) Range: 0.0-30.0 Microalbumin, Urine <3.0 ug/mL (Normal) Creatinine, Urine 21.9 mg/dL (Normal) :34 TSH (37168) Comments: PATIENT WAS FASTINGPERFORMED BY: [facility]absPres[facility] HospitalRdmavk1136 [facility] [id number] TSH 2.420 {uIU/mL} (Normal) Range: 0.450-4.500 :34 Lipid Panel (37700) Comments: PATIENT WAS FASTINGPERFORMED BY: [facility]absPres[facility] HospitalLugfsk0786 [facility] [id number] LDL/HDL Ratio 1.9 {ratio_units} (Normal) Range: 0.0-3.2 Comments: LDL/HDL Ratio Men Women 1/2 Avg.Risk 1.0 1.5 Av g.Risk 3.6 3.2 2X Avg.Risk 6.2 5.0 3X Avg.Risk 8.0 6.1 LDL Cholesterol Calc 132 mg/dL (Abnormal) Range: 0-99 VLDL Cholesterol Aneesh 15 mg/dL (Normal) Range: 5-40 HDL Cholesterol 71 mg/dL (Normal) Triglycerides 73 mg/dL (Normal) Range: 0-149 Cholesterol, Total 218 mg/dL (Abnormal) Range: 100-199 09-Jyj-473996:34 Metabolic Panel, Comprehensive Comments: PATIENT WAS FASTINGPERFORMED BY: AuthorityLabsAcuteCare Health SystemGgrnms2894 [facility] [id number] (70213) ALT (SGPT) 27 [iU]/L (Normal) Range: 0-32 [...] Glucose, Serum 96 mg/dL (Normal) Range: 65-99 51-Yux-666141:34 CBC WITH MANUAL DIFF (62109) Comments: PATIENT WAS FASTINGPERFORMED BY: [facility]CoAc[facility]Care Health SystemAysprp4027 [facility] [id number] Immature Grans (Abs) 0.0 {x10E3/uL} (Normal) Range: [...] 7.4 {x10E3/uL} (Normal) Range: 3.4-10.8 :19 TSH (31053) Comments: PATIENT WAS FASTINGPERFORMED BY: [facility] [id number] TSH 2.050 {uIU/mL} (Normal) Range: 0.450-4.500 :19 URINALYSIS, W/ MICRO (68513) Comments: PATIENT WAS FASTINGPERFORMED BY: [facility] [id number] Microscopic Examination See below: (Normal) Comments: Microscopic was indicated and was performed. Nitrite, Urine Negative (Normal) Urobilinogen,Semi-Qn 0.2 mg/dL (Normal) Range: 0.2-1.0 Bilirubin Negative (Normal) Occult Blood 1+ (Abnormal) Ketones Negative (Normal) Glucose Negative (Normal) Protein Negative (Normal) WBC Esterase 3+ (Abnormal) Appearance Cloudy (Abnormal) Urine-Color Yellow (Normal) pH 7.0 (Normal) Range: 5.0-7.5 Specific [place] 1.015 (Normal) Range: 1.005-1.030 :19 MICROALBUMIN: CREATININE RATIO Comments: PATIENT WAS FASTINGPERFORMED BY: [facility] [id number] (07689) AND (63308) Microalb/Creat Ratio 9.1 {mg/g_creat} (Normal) Range: 0.0-30.0 Microalbumin, Urine 7.4 ug/mL (Normal) Creatinine, Urine 81.3 mg/dL (Normal) :19 METABOLIC PANEL, COMPREHENSIVE Comments: PATIENT WAS FASTINGPERFORMED BY: [employer] Frtwoh4204 [facility] [id number] (81025) ALT (SGPT) 43 [iU]/L (Abnormal) Range: 0-32 [...] Glucose, Serum 104 mg/dL (Abnormal) Range: 65-99 2-Jxk-603047:19 LIPID PANEL (69691) Comments: PATIENT WAS FASTINGPERFORMED BY: [employer]6370 [facility] [id number] LDL/HDL Ratio 2.7 {ratio_units} (Normal) Range: 0.0-3.2 Comments: LDL/HDL Ratio Men Women 1/2 Avg.Risk 1.0 1.5 Av g.Risk 3.6 3.2 2X Avg.Risk 6.2 5.0 3X Avg.Risk 8.0 6.1 LDL Cholesterol Calc 145 mg/dL (Abnormal) Range: 0-99 VLDL Cholesterol Aneesh 18 mg/dL (Normal) Range: 5-40 HDL Cholesterol 53 mg/dL (Normal) Triglycerides 89 mg/dL (Normal) Range: 0-149 Cholesterol, Total 216 mg/dL (Abnormal) Range: 100-199 8-Whh-146048:19 CBC W/AUTO DIFF WBC (65271) Comments: PATIENT WAS FASTINGPERFORMED BY: LabCoAcuteCare Health SystemHzemmt2884 [facility] [id number] Immature Grans (Abs) 0.0 {x10E3/uL} (Normal) Range: [...] {x10E3/uL} (Normal) Range: 3.4-10.8 :19 HGB A1C (47436) Comments: PATIENT WAS FASTINGPERFORMED BY: LabCoAcuteCare Health SystemRxcwjs1487 [facility] [id number] Hemoglobin A1c 6.2 % (Abnormal) Range: 4.8-5.6 Comments: . Pre-diabetes: 5.7 - 6.4 Diabetes: >6.4 Glycemic control for adults with diabetes: <7.0 :19 HGB A1C (06625) Comments: PATIENT NOT FASTINGPERFORMED BY: LabCoAcuteCare Health SystemMlhxjd7551 [facility] [id number] Hemoglobin A1c 6.2 % (Abnormal) Range: 4.8-5.6 Comments: . Pre-diabetes: 5.7 - 6.4 Diabetes: >6.4 Glycemic control for adults with diabetes: <7.0 :33 Basic Metabolic Profile (BMP) Comments: Order Date: 06/21/16Order Info: [id number] - *BMPOrder Date: 06/21/16Order Info: [id number] - *BMPComments: Reason:[facility] Lqtnwuxvct[address] [place], [address] GAP 8 (Normal) Range: 5-15 CO2 27.0 [...] Microscopic Examination Comments: PATIENT NOT FASTINGPERFORMED BY: [employer] [facility] [id number] Bacteria None seen (Normal) Mucus Threads Present (Normal) Epithelial Cells (non renal) 0-10 {/hpf} (Normal) Range: 0 - 10 RBC 0-2 {/hpf} (Normal) Range: 0 - 2 WBC 0-5 {/hpf} (Normal) Range: 0 - 5 :37 URINALYSIS, W/ MICRO (14018) Comments: PATIENT NOT FASTINGPERFORMED BY: [employer] [facility] [id number] Microscopic Examination See below: (Normal) Comments: Microscopic was indicated and was performed. Nitrite, Urine Negative (Normal) Urobilinogen,Semi-Qn 0.2 mg/dL (Normal) Range: 0.2-1.0 Bilirubin Negative (Normal) Occult Blood Negative (Normal) Ketones Negative (Normal) Glucose Negative (Normal) Protein Negative (Normal) WBC Esterase 2+ (Abnormal) Appearance Clear (Normal) Urine-Color Yellow (Normal) pH 8.0 (Abnormal) Range: 5.0-7.5 Specific [place] 1.011 (Normal) Range: 1.005-1.030 :37 TSH (60864) Comments: PATIENT NOT FASTINGPERFORMED BY: [employer] Dymmlp5866 [facility] [id number] TSH 2.050 {uIU/mL} (Normal) Range: 0.450-4.500 :37 METABOLIC PANEL, COMPREHENSIVE Comments: PATIENT NOT FASTINGPERFORMED BY: [employer] Yladgy2176 [facility] [id number] (29081) ALT (SGPT) 31 [iU]/L (Normal) Range: 0-32 [...] Glucose, Serum 96 mg/dL (Normal) Range: 65-99 09-Xrh-675899:37 CBC W/AUTO DIFF WBC (08575) Comments: PATIENT NOT FASTINGPERFORMED BY: LabCoAcuteCare Health SystemUosjeq7679 [facility] [id number] Immature Grans (Abs) 0.0 {x10E3/uL} (Normal) Range: [...] (Normal) Range: 3.4-10.8 :08 HgA1C , Office (46898) HgA1C , Office 5.9 % (Normal) Range: 4.6 - 7.1 :49 HGB A1C (07074) Comments: PATIENT WAS FASTINGPERFORMED BY: AuthorityLabsAcuteCare Health SystemMnlnsr8726 [facility] [id number] Hemoglobin A1c 6.1 % (Abnormal) Range: 4.8-5.6 Comments: . Pre-diabetes: 5.7 - 6.4 Diabetes: >6.4 Glycemic control for adults with diabetes: <7.0 :49 TSH (00360) Comments: PATIENT WAS FASTINGPERFORMED BY: AuthorityLabsAcuteCare Health SystemChjznp7343 [facility] [id number] TSH 2.280 {uIU/mL} (Normal) Range: 0.450-4.500 :49 MICROALBUMIN: CREATININE RATIO Comments: PATIENT WAS FASTINGPERFORMED BY: AuthorityLabsAcuteCare Health SystemZbvven5122 [facility] [id number] (39198) AND (36264) Microalb/Creat Ratio <3.5 {mg/g_creat} (Normal) Range: 0.0-30.0 Microalbumin, Urine <3.0 ug/mL (Normal) Creatinine, Urine 85.4 mg/dL (Normal) 1-Izk-052144:49 METABOLIC PANEL, COMPREHENSIVE Comments: PATIENT WAS FASTINGPERFORMED BY: LabCoAcuteCare Health SystemTjbsqq3313 [facility] [id number] (49794) ALT (SGPT) 19 [iU]/L (Normal) Range: 0-32 [...] Glucose, Serum 101 mg/dL (Abnormal) Range: 65-99 2-Ssc-487858:49 LIPID PANEL (87106) Comments: PATIENT WAS FASTINGPERFORMED BY: AuthorityLabsAcuteCare Health SystemZhnyzs2885 [facility] [id number] LDL/HDL Ratio 2.3 {ratio_units} (Normal) Range: 0.0-3.2 Comments: LDL/HDL Ratio Men Women 1/2 Avg.Risk 1.0 1.5 Av g.Risk 3.6 3.2 2X Avg.Risk 6.2 5.0 3X Avg.Risk 8.0 6.1 LDL Cholesterol Calc 132 mg/dL (Abnormal) Range: 0-99 VLDL Cholesterol Aneesh 10 mg/dL (Normal) Range: 5-40 HDL Cholesterol 58 mg/dL (Normal) Triglycerides 48 mg/dL (Normal) Range: 0-149 Cholesterol, Total 200 mg/dL (Abnormal) Range: 100-199 7-Oaz-713346:49 CBC W/AUTO DIFF WBC (84031) Comments: PATIENT WAS FASTINGPERFORMED BY: LabLEAFERAcuteCare Health SystemTgkmgm5446 [facility] [id number]; will review at 08/07 appt Immature Grans [...] Microscopic Examination Comments: PATIENT WAS FASTINGPERFORMED BY: AuthorityLabsAcuteCare Health SystemCjcvqp8571 [facility] [id number] Bacteria Few (Normal) Mucus Threads Present (Normal) Epithelial Cells (non renal) 0-10 {/hpf} (Normal) Range: 0 - 10 RBC 0-2 {/hpf} (Normal) Range: 0 - 2 WBC 0-5 {/hpf} (Normal) Range: 0 - 5 :48 Blood Glucose , Office (84231) Blood Glucose , Office 75 (Normal) :48 HgA1C , Office (97210) HgA1C , Office 6.0 % (Normal) Range: 4.6 - 7.1 :18 TSH (53038) Comments: PATIENT WAS FASTINGPERFORMED BY: AuthorityLabsAcuteCare Health SystemMsdbxf4087 [facility] [id number] TSH 1.930 {uIU/mL} (Normal) Range: 0.450-4.500 :18 URINALYSIS, W/ MICRO (06547) Comments: PATIENT WAS FASTINGPERFORMED BY: AuthorityLabsAcuteCare Health SystemQjheac6996 [facility] [id number] Microscopic Examination See below: (Normal) Comments: Microscopic was indicated and was performed. Nitrite, Urine Negative (Normal) Urobilinogen,Semi-Qn 0.2 mg/dL (Normal) Range: 0.2-1.0 Bilirubin Negative (Normal) Occult Blood Negative (Normal) Ketones Negative (Normal) Glucose Negative (Normal) Protein Negative (Normal) WBC Esterase 1+ (Abnormal) Appearance Clear (Normal) Urine-Color Yellow (Normal) pH 7.5 (Normal) Range: 5.0-7.5 Specific [place] 1.023 (Normal) Range: 1.005-1.030 :18 MICROALBUMIN: CREATININE RATIO Comments: PATIENT WAS FASTINGPERFORMED BY: AuthorityLabsAcuteCare Health SystemGpphnq2766 [facility] [id number] (14436) AND (78085) Microalb/Creat Ratio 4.2 {mg/g_creat} (Normal) Range: 0.0-30.0 Microalbumin, Urine 6.3 ug/mL (Normal) Creatinine, Urine 149.4 mg/dL (Normal) :18 METABOLIC PANEL, COMPREHENSIVE Comments: PATIENT WAS FASTINGPERFORMED BY: AuthorityLabsPresbyterian Kaseman HospitalYiyphb8858 [facility] [id number] (13958) ALT (SGPT) 30 [iU]/L (Normal) Range: 0-32 [...] Range: 65-99 :18 CBC W/AUTO DIFF WBC (16035) Comments: PATIENT WAS FASTINGPERFORMED BY: LabCoPresbyterian Kaseman HospitalLchkhw4099 [facility] [id number] Immature Grans (Abs) 0.0 {x10E3/uL} (Normal) Range: [...] 6.1 {x10E3/uL} (Normal) Range: 3.4-10.8 :02 TSH (74168) Comments: PATIENT WAS FASTINGPERFORMED BY: LabCoAcuteCare Health SystemFmmsxh3768 [facility] [id number] TSH 2.070 {uIU/mL} (Normal) Range: 0.450-4.500 :02 CBC W/AUTO DIFF WBC Comments: PATIENT WAS FASTINGPERFORMED BY: [facility]6370 [facility] [id number] Information: [id number] (11599) Immature Grans (Abs) 0.0 {x10E3/uL} (Normal) Range: [...] 3.77-5.28 WBC 5.1 {x10E3/uL} (Normal) Range: 3.4-10.8 82-Utu-977449:02 MICROALBUMIN: CREATININE RATIO Comments: PATIENT WAS FASTINGPERFORMED BY: [facility]6370 [facility] [id number] (62810) AND (27189) Microalb/Creat Ratio 4.5 {mg/g_creat} (Normal) Range: 0.0-30.0 Microalbumin, Urine 5.7 ug/mL (Normal) Range: 0.0-17.0 Creatinine, Urine 127.2 mg/dL (Normal) Range: 15.0-278.0 :02 METABOLIC PANEL, COMPREHENSIVE Comments: PATIENT WAS FASTINGPERFORMED BY: [employer]70 [facility] [id number] (54135) ALT (SGPT) 20 [iU]/L (Normal) Range: 0-32 [...] mg/dL (Normal) Range: 65-99 :02 LIPID PANEL (15480) Comments: PATIENT WAS FASTINGPERFORMED BY: [employer] [facility]UNC [facility] [id number] LDL/HDL Ratio 2.1 {ratio_units} (Normal) Range: 0.0-3.2 [...] Cholesterol, Total 203 mg/dL (Abnormal) Range: 100-199 47-Kdy-489733:02 HGB A1C (30500) Comments: PATIENT WAS FASTINGPERFORMED BY: [facility]6370 [facility] [id number] Hemoglobin A1c 6.0 % (Abnormal) Range: 4.8-5.6 Comments: . Pre-diabetes: 5.7 - 6.4 Diabetes: >6.4 Glycemic control for adults with diabetes: <7.0 43-Vfw-223082:15 CULTURE, SPUTUM (81210) Comments: PERFORMED BY: LabCoAcuteCare Health SystemWxyrqr[address] [place] [address] [id number] Information: SRC: SPUTUM Result 1 RRF (Normal) Comments: Routine respiratory jamia Lower Respiratory Culture Final report (Normal) 15-Xxb-041021:45 Rapid Flu (59505 x 2) Influenza A Ag negative (Normal) 44-Spj-886584:50 HgA1C , Office (60189) HgA1C , Office 6.4 % (Normal) Range: 4.6 - 7.1 89-Gnf-031847:50 Blood Glucose , Office (53664) Blood Glucose , Office 102 (Normal) Comments: non-fasting 8-Mra-117323:00 Urinalysis, Office (17269) UA - LEUKOCYTE ESTERASE Negative (Normal) UA - NITRITE Negative (Normal) URINE UROBILINGN RBUEN TIMED 2 mg/dL (Normal) UA - PROTEIN Negative mg/dL (Normal) UA - PH 6.5 (Normal) UA - BLOOD non-hemolyzed trace (Normal) UA - SPECIFIC GRAVITY 1.025 (Normal) UA - KETONES Negative mg/dL (Normal) UA - BILIRUBIN Negative (Normal) UA - GLUCOSE Negative (Normal) :41 Microscopic Examination Comments: PATIENT WAS FASTINGPERFORMED BY: LabHawthorn Center6370 [facility] [id number] Bacteria Moderate (Abnormal) Mucus Threads Present (Normal) Epithelial Cells (non renal) >10 {/hpf} (Abnormal) Range: 0 - 10 RBC 0-2 {/hpf} (Normal) Range: 0 - 2 WBC >30 {/hpf} (Abnormal) Range: 0 - 5 :19 HgA1C , Office (42265) HgA1C , Office 6.1 % (Normal) Range: 4.6 - 7.1 :19 Blood Glucose , Office (39226) Blood Glucose , Office 98 (Normal) :19 HgA1C , Office (12574) HgA1C , Office 5.9 % (Normal) Range: 4.6 - 7.1 :19 Blood Glucose , Office (86723) Blood Glucose , Office 97 (Normal) 24-Elf-402000:55 METABOLIC PANEL, COMPREHENSIVE Comments: PATIENT NOT FASTINGPERFORMED BY: LabCoAlexander [place]ille 7753670 [facility] [id number] (88060) ALT (SGPT) 17 [iU]/L (Normal) Range: 0-32 [...] Glucose, Serum 85 mg/dL (Normal) Range: 65-99 55-Bhr-861930:55 CBC WITH MANUAL DIFF Comments: PATIENT NOT FASTINGPERFORMED BY: DAI [facility] Dkcjdh1802 [facility] [id number] Information: [id number]; will review at 3-30 appt (17814) Immature Grans (Abs) 0.0 {x10E3/uL} (Normal) Range: [...] (Normal) Range: 3.4-10.8 :41 URINALYSIS, W/ MICRO (34037) Comments: PATIENT WAS FASTINGPERFORMED BY: SurgimatixAcuteCare Health SystemAbupxi3521 [facility] [id number] Microscopic Examination See below: (Normal) Comments: Microscopic was indicated and was performed. Nitrite, Urine Negative (Normal) Urobilinogen,Semi-Qn 0.2 mg/dL (Normal) Range: 0.0-1.9 Bilirubin Negative (Normal) Occult Blood Negative (Normal) Ketones Negative (Normal) Glucose Negative (Normal) Protein Negative (Normal) WBC Esterase 3+ (Abnormal) Appearance Clear (Normal) Urine-Color Yellow (Normal) pH 6.5 (Normal) Range: 5.0-7.5 Specific [place] 1.020 (Normal) Range: 1.005-1.030 :41 MICROALBUMIN: CREATININE RATIO Comments: PATIENT WAS FASTINGPERFORMED BY: AuthorityLabsAcuteCare Health SystemRctqbg4646 [facility] [id number] (73307) AND (80525) Microalb/Creat Ratio 9.9 {mg/g_creat} (Normal) Range: 0.0-30.0 Microalbumin, Urine 10.2 ug/mL (Normal) Range: 0.0-17.0 Creatinine, Urine 103.0 mg/dL (Normal) Range: 15.0-278.0 :41 METABOLIC PANEL, COMPREHENSIVE Comments: PATIENT WAS FASTINGPERFORMED BY: [facility]uliooHawthorn Center6370 [facility] [id number] (74021) ALT (SGPT) 33 [iU]/L (Abnormal) Range: 0-32 [...] mg/dL (Normal) Range: 65-99 :41 LIPID PANEL (39091) Comments: PATIENT WAS FASTINGPERFORMED BY: [facility] [id number] LDL/HDL Ratio 1.8 {ratio_units} (Normal) Range: 0.0-3.2 [...] MANUAL DIFF Comments: PATIENT WAS FASTINGPERFORMED BY: [facility] [place] [id number] Information: [id number] (79434) Immature Grans (Abs) 0.0 {x10E3/uL} (Normal) Range: [...] 7.1 {x10E3/uL} (Normal) Range: 3.4-10.8 :41 TSH (58197) Comments: PATIENT WAS FASTINGPERFORMED BY: [employer] Qptjtn9911 [facility] [id number] TSH 2.910 {uIU/mL} (Normal) Range: 0.450-4.500 05-Ams-624433:29 HEMOGLOBIN GLYCLATED (HGB Comments: PATIENT NOT FASTINGPERFORMED BY: TruliooCoPresbyterian Kaseman HospitalZccydr1693 [facility] [id number] Information: [id number] A1C) (76728) Hemoglobin A1c 6.1 % (Abnormal) Range: 4.8-5.6 Comments: . Increased risk for diabetes: 5.7 - 6.4 Diabetes: >6.4 Glycemic control for adults with diabetes: <7.0 :48 HgA1C , Office (39709) HgA1C , Office 9.0 % (Abnormal) Range: 4.6 - 7.1 :48 Blood Glucose , Office (54149) Blood Glucose , Office 125 (Normal) :08 HgA1C , Office (50099) HgA1C , Office 5.8 % (Normal) Range: 4.6 - 7.1 :08 Blood Glucose , Office (12993) Blood Glucose , Office 88 (Normal) 50-Zyh-517215:26 Rapid Flu (07774 x 2) Influenza A Ag negative A and B (Normal) :01 HgA1C , Office (06896) HgA1C , Office 6.0 % (Normal) Range: 4.6 - 7.1 :01 Blood Glucose , Office (86052) Blood Glucose , Office 79 (Normal) :01 HgA1C , Office (43285) HgA1C , Office 6.3 % (Normal) Range: 4.6 - 7.1 :00 Blood Glucose , Office (82357) Blood Glucose , Office 99 (Normal) :46 Microscopic Examination Comments: PATIENT WAS FASTINGPERFORMED BY: [employer] Dcllvy5288 [facility] [id number] Bacteria None seen (Normal) Mucus Threads Present (Normal) Epithelial Cells (non renal) 0-10 {/hpf} (Normal) Range: 0 - 10 RBC 0-3 {/hpf} (Normal) Range: 0 - 3 WBC 6-10 {/hpf} (Abnormal) Range: 0 - 5 :46 TSH (01398) Comments: PATIENT WAS FASTINGPERFORMED BY: [employer] Lyzhnc8866 [facility] [id number] TSH 2.400 {uIU/mL} (Normal) Range: 0.450-4.500 :46 URINALYSIS, W/ MICRO (47803) Comments: PATIENT WAS FASTINGPERFORMED BY: [facility]6370 [facility] [id number] Microscopic Examination See below: (Normal) Nitrite, Urine Negative (Normal) Urobilinogen,Semi-Qn 0.2 mg/dL (Normal) Range: 0.0-1.9 Bilirubin Negative (Normal) Occult Blood Negative (Normal) Ketones Negative (Normal) Glucose Negative (Normal) Protein Trace (Normal) WBC Esterase 2+ (Abnormal) Appearance Clear (Normal) Urine-Color Yellow (Normal) pH 8.0 (Abnormal) Range: 5.0-7.5 Specific [place] 1.026 (Normal) Range: 1.005-1.030 :46 MICROALBUMIN: CREATININE RATIO Comments: PATIENT WAS FASTINGPERFORMED BY: AuthorityLabsAcuteCare Health SystemBtrcwq7284 [facility] [id number] (45572) AND (67666) Microalb/Creat Ratio 2.4 {mg/g_creat} (Normal) Range: 0.0-30.0 Microalbumin, Urine 3.7 ug/mL (Normal) Range: 0.0-17.0 Creatinine, Urine 151.9 mg/dL (Normal) Range: 15.0-278.0 :46 METABOLIC PANEL, COMPREHENSIVE Comments: PATIENT WAS FASTINGPERFORMED BY: AuthorityLabsAcuteCare Health SystemGjszvz4766 [facility] [id number] (48768) ALT (SGPT) 29 [iU]/L (Normal) Range: 0-32 [...] mg/dL (Abnormal) Range: 65-99 :46 LIPID PANEL (06708) Comments: PATIENT WAS FASTINGPERFORMED BY: [employer]70 [facility] [id number] LDL/HDL Ratio 1.8 {ratio_units} (Normal) Range: 0.0-3.2 [...] MANUAL DIFF Comments: PATIENT WAS FASTINGPERFORMED BY: SurgimatixAcuteCare Health SystemAvrxwo0831 [facility] [id number] Information: SRC: URINE (49172) Immature Grans (Abs) 0.0 {x10E3/uL} (Normal) Range: [...] {x10E3/uL} (Normal) Range: 4.0-10.5 :47 CCP ANTIBODY (33105) Comments: PATIENT WAS FASTINGPERFORMED BY: [employer] [facility] [id number] BY: [employer] [id number] CCP Antibodies IgG/IgA 22 {units} (Abnormal) Range: 0-19 Comments: Negative <20 Weak positive 20 - 39 Moderate positive 40 - 59 Strong positive >59 :47 SED RATE ERYTHROCYTE Comments: PATIENT WAS FASTINGPERFORMED BY: [employer] [facility] [id number] BY: [address] [id number] (90914) Sedimentation Rate-Westergren 3 mm/h (Normal) Range: 0-40 :47 C-REACTIVE PROTEIN (41417) Comments: PATIENT WAS FASTINGPERFORMED BY: [place] 3641970 [facility] [id number] BY: [address] [id number] C-Reactive Protein, Quant 6.5 mg/L (Abnormal) Range: 0.0-4.9 :47 RHEUMATOID FACTOR-QUANT Comments: PATIENT WAS FASTINGPERFORMED BY: [employer]abs[address] [id number] BY: [address] [id number] (90986) RA Latex Turbid. 10.2 {IU/mL} (Normal) Range: 0.0-13.9 :47 YAMIL (ANTINUCLEAR ANTIBODY) Comments: PATIENT WAS FASTINGPERFORMED BY: Trulioo[address] [id number] BY: [address] [id number] (76109) YAMIL Direct Negative (Normal) :35 HgA1C , Office (28743) HgA1C , Office 6.8 % (Normal) Range: 4.6 - 7.1 :35 Blood Glucose , Office (48957) Blood Glucose , Office 89 (Normal) Comments: PATIENT DID ON HER OWN MACHINE :56 HgA1C , Office (45152) HgA1C , Office 6.0 % (Normal) Range: 4.6 - 7.1 :56 Blood Glucose , Office (19396) Blood Glucose , Office 100 (Normal) 49-Nzw-355939:45 Microscopic Examination Comments: PATIENT WAS FASTINGPERFORMED BY: LabTina [place] 9658670 [facility] [id number] Bacteria Many (Abnormal) Mucus Threads Present (Normal) Epithelial Cells (non renal) >10 {/hpf} (Abnormal) Range: 0 - 10 RBC 0-3 {/hpf} (Normal) Range: 0 - 3 WBC 11-30 {/hpf} (Abnormal) Range: 0 - 5 :02 HgA1C , Office (07923) HgA1C , Office 6.1 % (Normal) Range: 4.6 - 7.1 :02 Blood Glucose , Office (54616) Blood Glucose , Office 96 (Normal) :41 CBC With Differential/Platelet Comments: PATIENT WAS FASTINGPERFORMED BY: LabCoAcuteCare Health SystemKkxkxm1205 [facility] [id number] Immature Grans (Abs) 0.0 {x10E3/uL} (Normal) Range: [...] 3.80-5.10 WBC 5.5 {x10E3/uL} (Normal) Range: 4.0-10.5 57-Qqw-107944:41 Comp. Metabolic Panel (14) Comments: PATIENT WAS FASTINGPERFORMED BY: LabCoAcuteCare Health SystemOxjvsh8108 [facility] [id number] ALT (SGPT) 22 [iU]/L (Normal) Range: 0-40 [...] With LDL/HDL Comments: PATIENT WAS FASTINGPERFORMED BY: AuthorityLabsAcuteCare Health SystemFpdigp8628 [facility] [id number] Ratio LDL/HDL Ratio 1.7 {ratio_units} (Normal) Range: [...] Randm Ur Comments: PATIENT WAS FASTINGPERFORMED BY: [facility]oHawthorn Center6370 [facility] [id number] Microalb/Creat Ratio 5.5 {mg/g_creat} (Normal) Range: 0.0-30.0 Microalbumin, Urine 9.9 ug/mL (Normal) Range: 0.0-17.0 Creatinine, Urine 181.2 mg/dL (Normal) Range: 15.0-278.0 53-Grc-619496:41 Microscopic Examination Comments: PATIENT WAS FASTINGPERFORMED BY: [facility]oHaw[facility] Center6370 [facility] [id number] Bacteria Few (Normal) Mucus Threads Present (Normal) Epithelial Cells (non >10 {/hpf} Range: 0 - 10 renal) (Abnormal) RBC 0-3 {/hpf} (Normal) Range: 0 - 3 WBC 0-5 {/hpf} (Normal) Range: 0 - 5 TSH 2.900 {uIU/mL} Comments: PATIENT WAS FASTINGPERFORMED BY: [facility]6370 [facility] [id number] 1:41 (Normal) Range: 0.450-4.500 34-Usx-713326:41 Urinalysis, Complete Comments: PATIENT WAS FASTINGPERFORMED BY: [address] RoadDublin [place] [id number] Microscopic Examination See below: (Normal) Nitrite, Urine Negative (Normal) Urobilinogen,Semi-Qn 0.2 mg/dL (Normal) Range: 0.0-1.9 Bilirubin Negative (Normal) Occult Blood Negative (Normal) Ketones Negative (Normal) Glucose Negative (Normal) Protein Negative (Normal) WBC Esterase 1+ (Abnormal) Appearance Clear (Normal) Urine-Color Yellow (Normal) pH 6.5 (Normal) Range: 5.0-7.5 Specific [place] 1.024 (Normal) Range: 1.005-1.030 07-Wpf-038982:45 URINALYSIS, W/ MICRO (53741) Comments: PATIENT WAS FASTINGPERFORMED BY: [facility]6370 [facility] [id number] Microscopic Examination See below: (Normal) Nitrite, Urine Negative (Normal) Urobilinogen,Semi-Qn 0.2 mg/dL (Normal) Range: 0.0-1.9 Bilirubin Negative (Normal) Ketones Negative (Normal) Occult Blood Negative (Normal) Glucose Negative (Normal) Protein 1+ (Abnormal) WBC Esterase 1+ (Abnormal) Appearance Turbid (Abnormal) Urine-Color Yellow (Normal) pH 8.5 (Abnormal) Range: 5.0-7.5 Specific [place] 1.027 (Normal) Range: 1.005-1.030 :45 TSH (44745) Comments: PATIENT WAS FASTINGPERFORMED BY: [facility]6370 [facility] [id number] TSH 1.890 {uIU/mL} (Normal) Range: 0.450-4.500 89-Vsp-007469:45 MICROALBUMIN: CREATININE RATIO Comments: PATIENT WAS FASTINGPERFORMED BY: [place] 3641970 [facility] [id number] (69626) AND (03990) Microalb/Creat Ratio 9.5 {mg/g_creat} (Normal) Range: 0.0-30.0 Creatinine, Urine 186.1 mg/dL (Normal) Range: 15.0-278.0 Microalbumin, Urine 17.7 ug/mL (Abnormal) Range: 0.0-17.0 :45 METABOLIC PANEL, COMPREHENSIVE Comments: PATIENT WAS FASTINGPERFORMED BY: [facility]70 [facility] [id number] (09859) ALT (SGPT) 21 [iU]/L (Normal) Range: 0-40 [...] Glucose, Serum 98 mg/dL (Normal) Range: 65-99 35-Xvc-252353:45 LIPID PANEL (53929) Comments: PATIENT WAS FASTINGPERFORMED BY: [employer]6370 [facility] [id number] LDL/HDL Ratio 1.6 {ratio_units} (Normal) Range: 0.0-3.2 [...] 100-199 Comments: Please note reference interval change 51-Kur-799907:45 CBC WITH MANUAL DIFF Comments: PATIENT WAS FASTINGPERFORMED BY: [facility] Efzted9648 [facility] [id number] Information: [id number] (75364) Immature Grans (Abs) 0.0 {x10E3/uL} (Normal) Range: [...] (Normal) Range: 4.0-10.5 :09 HgA1C , Office (74725) HgA1C , Office 6.0 % (Normal) Range: 4.6 - 7.1 :09 Blood Glucose , Office (63956) Blood Glucose , Office 79 (Normal) :33 Blood Glucose , Office (66327) Blood Glucose , Office 98 (Normal) :33 HgA1C , Office (26823) HgA1C , Office 6.0 % (Normal) Range: 4.6 - 7.1 :39 CBC & PLATELETS (AUTO) Comments: PATIENT WAS FASTINGPERFORMED BY: [facility] SystemIncfrc5394 [facility] [id number] ([id number]) Platelets 242 {x10E3/uL} (Normal) Range: 140-415 RDW 13.8 % (Normal) Range: 11.7-15.0 MCHC 33.2 g/dL (Normal) Range: 32.0-36.0 MCH 29.9 pg (Normal) Range: 27.0-34.0 Hematocrit 40.7 % (Normal) Range: 34.0-44.0 MCV 90 fL (Normal) Range: 80-98 Hemoglobin 13.5 g/dL (Normal) Range: 11.5-15.0 RBC 4.51 {x10E6/uL} (Normal) Range: 3.80-5.10 WBC 4.8 {x10E3/uL} (Normal) Range: 4.0-10.5 :39 METABOLIC PANEL, Comments: PATIENT WAS FASTINGPERFORMED BY: [facility]absAc[facility] SystemRlqiyf5141 [facility] [id number] Information: [id number] COMPREHENSIVE ([id number]) ALT (SGPT) 20 [iU]/L (Normal) Range: 0-40 [...] Glucose, Serum 94 mg/dL (Normal) Range: 65-99 [id number] TSH (THYROID STIMULATING Comments: PATIENT WAS FASTINGPERFORMED BY: TruliooCoAcuteCare Health SystemSsbmyk4585 [facility] [id number] HORMONE) (30397) TSH 2.830 {uIU/mL} (Normal) Range: 0.450-4.500 :39 MICROALBUMIN URINE QUANT Comments: PATIENT WAS FASTINGPERFORMED BY: [employer] LabCoAcuteCare Health SystemYgkewh7913 [facility] [id number] ([id number]) Creatinine, Urine 107.7 mg/dL (Normal) Range: 15.0-278.0 Microalb/Creat Ratio 4.0 {mg/g_creat} (Normal) Range: 0.0-30.0 Microalbumin, Urine 4.3 ug/mL (Normal) Range: 0.0-17.0 :39 LIPID PANEL (23505) Comments: PATIENT WAS FASTINGPERFORMED BY: [employer] Zluvqr7429 [facility] [id number]; appt 06/25/11 LDL/HDL Ratio 1.9 {ratio_units} (Normal) Range: 0.0-3.2 LDL Cholesterol Calc 108 mg/dL (Abnormal) Range: 0-99 VLDL Cholesterol Aneesh 15 mg/dL (Normal) Range: 5-40 HDL Cholesterol 56 mg/dL (Normal) Comments: According to ATP-III Guidelines, HDL-C >59 mg/dL is considered anegative risk factor for CHD. Triglycerides 76 mg/dL (Normal) Range: 0-149 Cholesterol, Total 179 mg/dL (Normal) Range: 100-199 97-Qvo-530731:03 HEMOGLOBIN GLYCLATED (HGB Comments: PATIENT NOT FASTINGPERFORMED BY: [employer] Ypkeyi7172 [facility] [id number] Information: [id number] A1C) (35962) Hemoglobin A1c 6.0 % (Abnormal) Range: 4.8-5.6 Comments: Increased risk for diabetes: 5.7 - 6.4 Diabetes: >6.4 Glycemic control for adults with diabetes: <7.0 29-Uas-360284:42 Blood Glucose , Office (84056) Blood Glucose , Office 120 (Normal) Comments: patient reported. Showed me on her meter and declined to have done in office today. 78-Vkl-404967:32 Microscopic Examination Comments: PATIENT WAS FASTINGPERFORMED BY: [employer] Nwvwup3171 [facility] [id number] Bacteria Moderate (Abnormal) Mucus Threads Present (Normal) Epithelial Cells (non renal) 0-10 {/hpf} (Normal) Range: 0 - 10 RBC 0-3 {/hpf} (Normal) Range: 0 - 3 WBC 0-5 {/hpf} (Normal) Range: 0 - 5 80-Ogw-673378:32 URINALYSIS, W/ MICRO (20304) Comments: PATIENT WAS FASTINGPERFORMED BY: SurgimatixAcuteCare Health SystemFdvmzu9340 [facility] [id number] Microscopic Examination See below: (Normal) Bilirubin Negative (Normal) Microscopic Examination MICRON (Normal) Comments: Microscopic follows if indicated. Nitrite, Urine Negative (Normal) Urobilinogen,Semi-Qn 0.2 mg/dL (Normal) Range: 0.0-1.9 Glucose Negative (Normal) Ketones Negative (Normal) Occult Blood Negative (Normal) Appearance Clear (Normal) Protein Negative (Normal) WBC Esterase Negative (Normal) pH 7.0 (Normal) Range: 5.0-7.5 Urine-Color Yellow (Normal) Specific [place] 1.020 (Normal) Range: 1.005-1.030 68-Yja-503967:32 METABOLIC PANEL, COMPREHENSIVE Comments: PATIENT WAS FASTINGPERFORMED BY: SurgimatixAcuteCare Health SystemXbynin3264 [facility] [id number] (06907) ALT (SGPT) 18 [iU]/L (Normal) Range: 0-40 [...] Glucose, Serum 90 mg/dL (Normal) Range: 65-99 98-Fhy-210547:32 CBC WITH MANUAL DIFF Comments: PATIENT WAS FASTINGPERFORMED BY: LabCoAcuteCare Health SystemHyxrws4474 [facility] [id number] Information: [id number] (10110) Immature Grans (Abs) 0.0 {x10E3/uL} (Normal) Range: [...] 3.80-5.10 WBC 5.0 {x10E3/uL} (Normal) Range: 4.0-10.5 05-Fit-464196:32 TSH (43479) Comments: PATIENT WAS FASTINGPERFORMED BY: [address] [id number] TSH 3.890 {uIU/mL} (Normal) Range: 0.450-4.500 :32 MICROALBUMIN: CREATININE RATIO Comments: PATIENT WAS FASTINGPERFORMED BY: [address] [id number] (12126) AND (03875) Microalb/Creat Ratio 2.7 {mg/g_creat} (Normal) Range: 0.0-30.0 Microalbumin, Urine 3.2 ug/mL (Normal) Range: 0.0-17.0 Creatinine, Urine 117.9 mg/dL (Normal) Range: 15.0-278.0 :32 LIPID PANEL (83392) Comments: PATIENT WAS FASTINGPERFORMED BY: [place] [address] [facility] [id number] LDL/HDL Ratio 1.8 {ratio_units} (Normal) Range: 0.0-3.2 LDL Cholesterol Calc 115 mg/dL (Abnormal) Range: 0-99 VLDL Cholesterol Aneesh 16 mg/dL (Normal) Range: 5-40 HDL Cholesterol 64 mg/dL (Normal) Comments: According to ATP-III Guidelines, HDL-C >59 mg/dL is considered anegative risk factor for CHD. Triglycerides 79 mg/dL (Normal) Range: 0-149 Cholesterol, Total 195 mg/dL (Normal) Range: 100-199 50-Xag-970123:29 PELVIC (NON ) Radiology See Note Comments: [...] on 08/10/10 1410 Sign by: Lizzy Day 81-Hit-43522:00 TRANSVAGINAL NON- Radiology See Note Comments: ADDENDUM [...] (ACTIVATED PARTIAL Comments: PATIENT NOT FASTINGPERFORMED BY: [place] [address] [facility] [id number] THROMBOPLASTIN TIME) (81299) aPTT 29 {sec} (Normal) Range: 24-33 Comments: This test has not been validated for monitoring unfractionated heparintherapy. aPTT-based therapeutic ranges for unfractionated heparintherapy have not been established. For general guidelines onHeparin monitoring, refer to the [facility] Directory of Services. 68-Bps-474679:44 PT (PROTHROMBIN TIME) (98273) Comments: PATIENT NOT FASTINGPERFORMED BY: [facility]6370 [facility] [id number] Prothrombin Time 10.5 {sec} (Normal) Range: 8.7-11.5 INR 1.0 (Normal) Range: 0.8-1.2 Comments: Reference interval is for non-anticoagulated patients. . Suggested INR therapeutic range for Vitamin K anta gonist therapy: Standard Dose (moderate intensity therapeutic range): 2.0 - 3.0 Higher intensity therapeutic range 2.5 - 3.5 :44 PROLACTIN (68125) Comments: PATIENT NOT FASTINGPERFORMED BY: [facility] Ixdlli9871 [facility] [id number] Prolactin 14.9 ng/mL (Normal) Range: 4.8-23.3 :44 METABOLIC PANEL, Comments: PATIENT NOT FASTINGPERFORMED BY: [facility] Sqqmky6875 [facility] [id number] Information: [id number] COMPREHENSIVE (50893) ALT (SGPT) 22 [iU]/L (Normal) Range: 0-40 [...] 88 mg/dL (Normal) Range: 65-99 :44 TSH (07914) Comments: PATIENT NOT FASTINGPERFORMED BY: [facility]6370 [facility] [id number] TSH 2.410 {uIU/mL} (Normal) Range: 0.450-4.500 :44 CBC (AUTO) (16577) Comments: PATIENT NOT FASTINGPERFORMED BY: [facility]6370 [facility] [id number] MCHC 33.6 g/dL (Normal) Range: 32.0-36.0 Platelets 295 {x10E3/uL} (Normal) Range: 140-415 RDW 14.0 % (Normal) Range: 11.7-15.0 Hematocrit 38.7 % (Normal) Range: 34.0-44.0 MCH 30.1 pg (Normal) Range: 27.0-34.0 MCV 90 fL (Normal) Range: 80-98 Hemoglobin 13.0 g/dL (Normal) Range: 11.5-15.0 RBC 4.32 {x10E6/uL} (Normal) Range: 3.80-5.10 WBC 7.7 {x10E3/uL} (Normal) Range: 4.0-10.5 :23 HgA1C , Office (08542) HgA1C , Office 6.1 % (Normal) Range: 4.6 - 7.1 :23 Blood Glucose , Office (14862) Blood Glucose , Office 100 (Normal) :18 CBC With Differential/Platelet Comments: PATIENT WAS FASTINGPERFORMED BY: [facility]6370 [facility] [id number] Immature Grans (Abs) 0.0 {x10E3/uL} (Normal) Range: [...] 3.80-5.10 WBC 6.1 {x10E3/uL} (Normal) Range: 4.0-10.5 50-Vrc-560197:18 Comp. Metabolic Panel (14) Comments: PATIENT WAS FASTINGPERFORMED BY: LabCoAcuteCare Health SystemDvqibh9714 [facility] [id number] ALT (SGPT) 18 [iU]/L (Normal) Range: 0-40 [...] Glucose, Serum 99 mg/dL (Normal) Range: 65-99 66-Hbg-333530:18 Lipid Panel With LDL/HDL Comments: PATIENT WAS FASTINGPERFORMED BY: [employer] [facility] [id number] Ratio HDL Cholesterol 53 mg/dL (Normal) Comments: [...] 2.770 {uIU/mL} Comments: PATIENT WAS FASTINGPERFORMED BY: [employer] [facility] [id number] (Normal) Range: 0.450-4.500 :48 HgA1C , Office (38333) HgA1C , Office 6.2 % (Normal) Range: 4.6 - 7.1 :48 Blood Glucose , Office (18430) Blood Glucose , Office 97 (Normal) :46 CBC With Differential/Platelet Comments: PATIENT WAS FASTINGPERFORMED BY: LabCoAlexander [facility]ille 7753670 [facility] [id number] Baso (Absolute) 0.0 {x10E3/uL} (Normal) Range: 0.0-0.2 [...] Panel (14) Comments: PATIENT WAS FASTINGPERFORMED BY: [employer] Gkamtk4449 [facility] [id number] A/G Ratio 1.5 (Normal) Range: 1.1-2.5 Albumin, [...] Serum 103 mg/dL (Abnormal) Range: 65-99 If -[place]ib[place] >59 mL/min/1.73 Comments: Note: Persistent reduction for [...] With LDL/HDL Comments: PATIENT WAS FASTINGPERFORMED BY: [employer]6370 [facility] [id number] Ratio Cholesterol, Total 179 mg/dL (Normal) Range: [...] Cholesterol Aneesh 14 mg/dL (Normal) Range: 5-40 45-Pfp-86202:46 Thyroxine (T4) Free, Direct, S Comments: PATIENT WAS FASTINGPERFORMED BY: LabCoAcuteCare Health SystemGcsfcr1542 [facility] [id number] T4,Free(Direct) 1.13 ng/dL Range: 0.61-1.76 (Normal) 30-Jul-2008 Triiodothyronine,Free,Seru 3.0 pg/mL (Normal) Comments: PATIENT WAS FASTINGPERFORMED BY: LabCoAcuteCare Health SystemQbmvps4396 [facility] [id number] 9:46 m Range: 2.3-4.2 30-Jul-2008 TSH 2.949 {uIU/mL} Comments: PATIENT WAS FASTINGPERFORMED BY: LabCoAcuteCare Health SystemJmhhpz6017 [facility] [id number] 9:46 (Normal) Range: 0.450-4.500 12-Jjb-75955:43 Blood Glucose , Office (10289) Comments: done>Wf. Blood Glucose , Office 100 (Normal) 1-Kti-364580:30 GLUP 105 mg/dL (Normal) Comments: GLU,2HPPG 75gm GLUC PPG GLUP from 1208:O52762Y. 4-Zof-933779:24 ESR SED RATE 31 mm/h (Abnormal) Range: 0-30 2-Tcw-572933:24 HGB A1C 6.7 % (Abnormal) Range: 4.0-6.3 Comments: The methodology of Hgb A1C has changed to [place] BehringDimension RXL. No significant changes in patientresults are expected. The reference range remains the same. 5-Dmv-503908:03 BREAST UNILATERAL US () Radiology Report See Note (Normal) Comments: Exam Number: [id number] TARGETED RIGHT BREAST ULTRASOUND HISTORYAbnormal mammogram. High [...] Report See Note (Normal) Comments: Exam Number: [id number] TARGETED RIGHT BREAST ULTRASOUND HISTORYAbnormal mammogram. High-resolution [...] werealso examined with computer-aide d detection software ([employer] Reported By: PHYLLIS HEWITT M.D. 21-Jul-20088:36 [facility] DIGITAL & CAD Radiology Report See Note (Normal) Comments: Exam Number: [id number] MAMMOGRAM, BILATERAL SCREENING DIGITAL AND CAD HISTORYRoutine [...] patient reported a previous study performed at [facility]. That examination was too old and is [...] mammograms werealso examined with computer-aided detection software ([employer], [employer] Reported By: PHYLLIS HEWITT M.D. 97-Ojw-13655:26 H pylori, IgM, IgG, IgA Ab Comments: PERFORMED BY: [facility]6370 [facility] [id number] H. pylori IgG, Abs <0.9 U/mL (Normal) [...] Diarrhea Unspecified osteoarthritis, unspecified site : Reviewed [employer] Letter Indication: Unspecified osteoarthritis, unspecified site Controlled [...] - Strool Based DNA Test, CRC SCREEN (19299)Indication: Screening for colon cancer On: 96-Oft-896468:51 Request TSH (22636)Indication: Controlled diabetes mellitus type II without complication On: 5-Fjk-958391:53 Request URINALYSIS, W/ MICRO (26903)Indication: Controlled diabetes mellitus type II without complication On: 1-Ntx-714775:53 Request MICROALBUMIN: CREATININE RATIO (71092) AND (07739)Indication: Controlled diabetes mellitus type II without complication On: 6-Bhd-563085:53 Request METABOLIC PANEL, COMPREHENSIVE (68945)Indication: Controlled diabetes mellitus type II without complication On: 6-Wjv-394506:53 Request LIPOPROTEIN, BLD, BY NMR (36373)Indication: Controlled diabetes mellitus type II without complication On: 8-Wla-041081:53 Request LIPID PANEL (22717)Indication: Controlled diabetes mellitus type II without complication On: 5-Waf-574460:53 Request CBC W/AUTO DIFF WBC (39248)Indication: Controlled diabetes mellitus type II without complication On: 2-Iug-360539:52 Request HGB A1C (79872)Indication: Controlled diabetes mellitus type II without complication On: 22-Mar-20178:18 Request LIPID PANEL (74796)Indication: Hypercholesteremia On: 22-Mar-20178:17 Request HGB A1C (78223)Indication: Uncontrolled type II diabetes mellitus On: 31-Oct-2016 Request POTASSIUM SERUM (92897)Indication: High potassium On: 2-Cku-869447:06 Request HELICO PYLORI, STOOL, INFCT ANTIGEN (61190)Indication: NSAID long-term use On: 6-Far-125630:05 Request TSH (92229)Indication: Uncontrolled type II diabetes mellitus On: 5-Drt-481370:58 Request TSH (83615)Indication: Pain in unspecified joint On: 98-Ful-448808:41 Request CBC WITH MANUAL DIFF (24764)Indication: Pain in unspecified joint On: 45-Pbp-753389:41 Request METABOLIC PANEL, COMPREHENSIVE (61672)Indication: Pain in unspecified joint On: 42-Ohe-820645:41 Request URINALYSIS, W/ MICRO (07235)Indication: Benign essential hypertension On: 42-Pif-213873:06 Request MICROALBUMIN: CREATININE RATIO (14457) AND (08219)Indication: Benign essential hypertension On: 24-Ypu-578027:06 Request URINE CED CULTURE-IDENTIFICATN (60986)Indication: Other abnormal finding of urine On: 03-Mmv-412790:56 Request TSH (96546)Indication: Controlled diabetes mellitus type II without complication On: :41 Request URINALYSIS, W/ MICRO (47141)Indication: Benign essential hypertension On: 7-Tcc-237699:41 Request MICROALBUMIN: CREATININE RATIO (90341) AND (77796)Indication: Benign essential hypertension On: :41 Request METABOLIC PANEL, COMPREHENSIVE (20061)Indication: Benign essential hypertension On: :41 Request LIPID PANEL (39349)Indication: Benign essential hypertension On: :41 Request CBC WITH MANUAL DIFF (69674)Indication: Benign essential hypertension On: :41 Request TSH (80806)Indication: Uncontrolled type II diabetes mellitus On: :37 Request METABOLIC PANEL, COMPREHENSIVE (83227)Indication: Uncontrolled type II diabetes mellitus On: :36 Request MICROALBUMIN: CREATININE RATIO (56538) AND (60075)Indication: Uncontrolled type II diabetes mellitus On: :36 Request LIPID PANEL (79458)Indication: Uncontrolled type II diabetes mellitus On: :36 Request CBC WITH MANUAL DIFF (07978)Indication: Uncontrolled type II diabetes mellitus On: :36 Request H. PYLORI BLD TEST UREASE NON-RAD (03891)Indication: Epigastric pain On: 35-Pwl-17514:09 Request Planned Encounters Medical; 3 Month FU - On: 21-Jul-2018 11:45 [facility] Nina Jiménez DO, DO, Kathleen Planned Procedures Bone Density StudyBy: Tino ALONSO, On: 03-Jul-2018 Intent Nina Stover DO MAMMOGRAM BREAST BILATERAL On: 03-Jul-2018 Intent SCREENING DIGITAL (10838)By: Nina Jiménez DO, DO, Kathleen CT SCAN OF ABDOMEN AND PELVIS WITH On: 26-Jul-2017 Intent CONTRAST (12205)By: Nina Jiménez DO, DO, Kathleen ELECTROCARDIOGRAM, COMPLETE (ECG) On: 26-Jul-2017 Intent (78322)By: Nina Jiménez DO Comments: nsr no acute chg Nina Jiménez DO MAMMOGRAM, SCREENING, BOTH BREAST On: 01-Nov-2016 Intent (05757)By: Nina Jiménez DO, DO, Kathleen Echo CompleteBy: Tino ALONSO, On: 18-May-2016 Intent Nina Stover DO Comments: dr mckee Holter Monitor 24 hrsBy: Tino On: 04-May-2016 Intent Nina ALONSO DO, Kathleen ELECTROCARDIOGRAM, COMPLETE (ECG) On: 04-May-2016 Intent (57100)By: Nina Jiménez DO Comments: ? a fib vs atrial tachycardia - df rev as well -- thought maybe some flutter trying to breakthru where we see P waves -- pt asx and hemodynamically stable Nina Jiménez DO MRI ANKLE LEFT WO CONTRAST On: 14-Nov-2015 Intent (08423)By: Nina Jiménez DO, DO, Kathleen Aerosol Treatment (19022)By: Slarb On: 08-Dec-2014 Intent Nette VASQUEZ EKG (94285)By: Tino ALONSO, On: 16-Aug-2014 Intent Nina Stover [...] 08-Jul-2013 Intent (G8553)By: Geovanna Nuñez LPN EKG (85177)By: Trisha Emery MD On: 03-Jul-2013 Intent Comments: see scanned document of test done to see results reviewed today with patient Eprescribed prescriptions On: 08-Apr-2013 Intent (G8553)By: Geovanna Nuñez LPN EKG (52482)By: Tino ALONSO, On: 18-Aug-2012 Intent Nina Stover DO Comments: nsr no acute chg Eprescribed prescriptions On: 18-Aug-2012 Intent (G8553)By: Lidya Stephenson LPN Eprescribed prescriptions On: 08-May-2012 Intent (G8553)By: Nina Jiménez DO, DO, Kathleen Eprescribed prescriptions On: 08-May-2012 Intent (G8553)By: Geovanna Nuñez LPN CT - Neck (IV Contrast Needed)By: On: 28-Oct-2011 Intent Nina Jiménez DO, DO, Comments: follow up original image done [facility]-- ( mri cervical spine) Nina EKG (24373)By: Tino ALONSO, On: 25-Jul-2011 Intent Nina Stover DO Comments: NSR NO ACUTE CHG Ultrasound - PelvisBy: Tino ALONSO, On: 01-Dec-2010 Intent Nina Stover DO Ultrasound - PelvisBy: Tino ALONSO, On: 02-Aug-2010 Intent Nina Stover DO Comments: may do vaginal probe if need to EKG (11322)By: Tino ALONSO, On: 16-Feb-2010 Intent Nina Stover DO Comments: nsr no acute chnages FLU VAC, SPLIT, >3 YEARS, On: 29-Jul-2008 Intent INTRAMUSC (12796)By: Nina Jiménez DO DONina IMMUNIZ ADMNIN, 1 VAC, SNGL/COMBO On: 29-Jul-2008 Intent (64600)By: Nina Jiménez DO Comments: lot # [id number]- 02/15/0930evcs-BYKWpnfhi-NMwvdj- 0.5ML chenderson tolerated well Tino DO, Nina IMMUNIZ ADMNIN, 1 VAC, SNGL/COMBO On: 29-Jul-2008 Intent (14976)By: Nina Jiménez DO Comments: lot # [id number]- 12/27/20193347uczd-BHTIdicqc-LQwltq- O.5ML chenderson tolerated well Tino DO, Nina PNEUM VAC ADLT/IMUMNOSPR, On: 29-Jul-2008 Intent SBC/INTRM (75182)By: Nina Jiménez DO, DO, Kathleen EKG (66822)By: Tino , On: 29-Jul-2008 Intent Nina Stover DO MAMMOGRAM, SCREENING, BOTH BREASTS On: 04-Jun-2008 Intent (79067)By: Jjoo Santoyo Instructions Name Dates Details Physical exam [...] Pain,Unspecified Site (789.00) [facility] HospitalNina Ayon; dia guarantor
--- OUTSIDE RECORDS SUMMARY | 2018-09-13 21:04 | XMS RPT_ITS | Continuity of Care Document ---
:1955 Author Organization [facility] Address [facility] [address] Phone Care Team Providers Name Role Phone [...] : 08-Jun-2008 Discontinued Comments:This order discontinued per [facility]. PENLAC, 8% (External Solution) apply Solution topically [...] VAC ADLT/IMUMNOSPR, Date: 14-Nov-2015 Completed 14-Nov-2015 SBC/INTRM (53366) Comments: Lot:[id number]:04/05/17Dose:0.5mgRoute:imSite:david Boo By:WILLI signed Cardioversion Completed Comments: 2015 Colonoscopy Completed Comments: 07-27-08 - Diverticulitis Diverticulitis (562.11) Completed Comments: Colonoscopy 07-27-08 lt finger sx Completed Comments: 03/01 Date Value Details 22-Apr-2018 12 Lead Electrocardiogram Result: Comments: See Note; NOTES: [facility] Cardiovascular Services [address] [place] [address] 12 Lead EKG 04/19/18 1456 MR#: [id number] Acct: [id number] Name: NINA AYON ep #: [id number] : 1955 62 From: Bright Peng MD [...] Borderline ECG Confirmed by BRIGHT PENG ([id number]), non linear editor OBDULIO PURDY ([id number]) on 04/22/2018 1:27:45 PM Referred By: JOHN Confirmed By: BRIGHT PENG 04/22/18 1327 Date Bright Peng MD CC: Nina Jiménez DO; Cedric Sylvester MD Signed 19-Apr-2018 Emergency Department Summary Result: Comments: See Note; NOTES: [facility] Medical Records Department [address] [place] [address] Emergency Department Summary 04/19/18 1653 MR#: [id number] Acct: [id number] Name: NINA AYON Rep #: [id number] : 1955 62 From: Cedric Sylvester MD [...] pleuritic component This note was generated with Votigo dictation software. It may contain incorrect words, [...] your Primary Care Provider. Call [facility] ([phone]) or report to the closest Emergency Room. Call 911 if necessary. 04/19/18 1701 <Electronically signed by Cedric Sylvester MD> Date Cedric Sylvester MD Cosig ner Signature (If Indicated): Date CC: Nina Jiménze DO 19-Apr-2018 Chest 1 View (Portable) Result: Comments: See Note; NOTES: [facility] Imaging Services [address] [place] [address] Chest 1 View (Portable) MR#: [id number] Acct: [id number] Name: NINA AYON Rep #: [id number] : 1955 F 62 From: Dolly Hardy MD PCP: Nina Jiménez DO Status: PRE ER Study: Chest 1 View (Portable) Date of Exam: 04/19/18 Exam# [id number] Ordering Dr: Cedric Sylvester MD STUDY: X-RAY [...] CC: Nina Jiménez DO; Cedric Sylvester MD Estimator Printing: Signed 10-Feb-2018 Cardiology Visit Report Result: Comments: See Note; NOTES: [facility] [address] [place] [address] OFFICE VISIT Date of Service: 02/10/18 MR#: [id number] Acct: [id number] Name: NINA AYON Rep #: [id number] : 1955 Provider: KATHY Snider Age/Sex: 62/F Location: [facility] Status: Signed HPI HPI Details: NINA [...] insufficiency (Chronic) Paroxysmal atr ial fibrillation (Acute) long-term (current) use of anticoagulants (Chronic) GERD (gastroesophageal [...] a transthoracic echocardiogram on 11/07/2016 at [facility]. The results are as noted below. 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 MINIMUM HEART RATE WAS 92 BPM AT [...] We will continue to monitor this. 7. long-term (current) use of anticoagulants Z79.01 Plan If [...] (valve) insufficiency I36.1 Paroxysmal atrial fibrillation I48.0 long-term (current) use of anticoagulants Z79.01 Anxiety F41.9 Coding Level of Care Code Off v is,est,level 3 Diagnoses Abnormal stress test R94.39 Essential hypertension I10 Hyperlipidemia, unspecified hyperlipidemia type E78.5 Nonrheumatic mitral valve regurgitation I34.0 Nonrheumatic tricuspi d (valve) insufficiency I36.1 Paroxysmal atrial fibrillation I48.0 long-term (current) use of anticoagulants Z79.01 Anxiety F41.9 02/10/18 1506 <Electronically signed by Dusty MORALES& #62; Date Dusty MORALES Cosigner Signature: Date (if applicable) CC: Nina Jiménez DO 10-Feb-2018 Chest PA and Lateral Result: Comments: See Note; NOTES: [facility] Imaging Services [address] [place] [address] Chest PA and Lateral MR#: [id number] Acct: [id number] Name: GABOJINNINA B Rep #: [id number] : 1955 F 62 From: Leslye Sue MD PCP: Nina Jiménez DO Status: REG CLI Study: Chest PA and Lateral Date of Exam: 02/10/18 Exam# [id number] Ordering Dr: Haile Mckee MD STUDY: X-RA Y CHEST REASON FOR EXAM: Female, 62 years old. Chest pain. TECHNIQUE: PA and lateral views of the chest. COMPARISON: June 28, 2016 FINDINGS: The lungs are cl ear and expanded. There is no demonstrated pleural abnormality. Normal size heart. Normal mediastinum and amrailys. Normal visualized pulmonary arteries. There is atherosclerotic [...] CC: Nina Jiménez DO; Haile Mckee MD Estimator Printing: Signed 04-Feb-2018 Stress Report Result: Comments: See Note; NOTES: [facility] Cardiovascular Services [address] [place] [address] MR#: [id number] Acct: [id number] Name: GABONINA B Rep #: [id number] : 62 From: Haile Mckee MD Primary [...] and occasional PVCs during recovery. The functional [facility] was considered average. There was [...] %. Thi s note was generated with ProtonMediaation software. It may contain incorrect words, spelling, and punctuation that were not noted in checking the note before signing. 02/04/18 9603 <Randy person signed by Haile Mckee MD> Date Haile Mckee MD CC: Nina Jiménez DO; Haile Mckee MD Date Dictated: 02/04/18 1354 Date Transcribed: 02/04/181353 Estimator Printing: PM Signed 09-Jan-2018 Cardiology Visit Report Result: Comments: See Note; NOTES: [facility] [address] [place] [address] OFFICE VISIT Date of Service: 01/09/18 MR#: [id number] Acct: [id number] Name: NIAN AYON Rep #: [id number] : 1955 Provider: Haile Mckee MD Age/Sex: 62/F Location: [facility] Status: Signed HPI HPI Details: NINA [...] (valve) insufficiency (Chronic) Paroxysmal atrial fibrillation (Acute) long-term (current) use of a nticoagulants (Chronic) GERD [...] a transthoracic echocardiogram on 11/07/2016 at [facility]. The results are as noted below. [...] management and follow- up. Orders Orders: 7. 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 Coding Level of Care Code Off vis,est,level 4 Diagnoses Chest pain, unspecified type R07.9 Chest pain type: unspecified Paroxysmal atrial fibrillation I48.0 Nonrheumatic mitral valve insufficiency I34.0 Non-rheumatic tricuspid valve insufficiency I36.1 Hyper lipidemia, unspecified hyperlipidemia type E78.5 Hyperlipidemia type: unspecified Essential hypertension I10 Hypertension type: essential hypertension long-term current use of anticoagulant Z79.01 1103 <Electronically signed by Haile Mckee MD> Date Haile Mckee MD Cosigner Signature: Date (if applicable) CC: Nina Jiménez DO 09-Jan-2018 12 Lead EKG performed by [facility] Result: Comments: See Note; NOTES: [facility] [address] [place] [address] 12 Lead EKG performed by [facility] 01/09/185 MR#: [id number] Acct: [id number] Name: NINA AYON Rep #: [id number] : 1955 62 From: Haile Mckee MD Attending Dr: Haile Mckee MD Status: DEP [facility] Ordering Dr: Haile Mckee MD Date: 01/09/18 Location: [facility] Sex: F C Admitted : BMS/12 Lead EKG performed by [facility] ECG Report Interpretation Sinus Rhythm - occasional ectopic ventricular beat Electronically signed on 01/09/2018 at 12:2 4 by Haile Mckee 01/09/181226 Date Haile Mckee MD CC: Nina Jiménez DO Date Dictated: 01/09/181024 Date Transcribed: 01/09/181024 Estimator Printing: PM Signed 09-Aug-2017 Abdomen/Pelvis WITH Contrast Result: Comments: See Note; NOTES: [facility] Imaging Services [address] [place] [address] Abdomen/Pelvis WITH Contrast MR#: [id number] Acct: [id number] Name: NINA AYON Rep # : [id number] : 1955 F 62 From: Ganga Argueta PCP: Nina Jiménez DO Status: REG CLI Study: Abdomen/Pelvis WITH Contrast Date of Exam: 08/09/17 Exam# [id number] Ordering Dr: Nina Jiménez DO STUDY: CT [...] of the lumbar spine. ORDE R #: [id number] CT/Abdomen/Pelvis WITH Contrast IMPRESSION: No acute findings in the abdomen or pelvis. Normal appendix. No hydronephrosis or urinary tract stones. No evidence of bowel obstruction. M ild sigmoid colon diverticulosis. Moderate size hiatal hernia. Electronically Signed: Ganga Argueta MD at 8:11 EST , Service support , CC: Nina Jiménez DO Estimator Printing: Signed 07-Nov-2016 Echocardiogram Complete Result: Comments: See Note; NOTES: [facility] Cardiovascular Services [address] [place] [address] Echo Complete 11/07/16 1027 MR#: [id number] Acct: [id number] Name: NINA AYON Rep #: [id number] : 1955 61 From: Haile Mckee MD Attending Dr: Sanam Coronel NP Status: REG CLI Ordering Dr: Sanam Coronel E BAR HOST-C Date: 11/07/16 Location: [facility] Sex: F C Admitted: [place] son For Study: Afib Procedure This was [...] mmHg. Ordering Physician: Sanam Castro Referring Physician: Nian Jiménez Performed By: Aide Snider, RDCS, RVT 11/07/161733 Date Haile Mckee MD CC: Sanam Coronel BAR HOST; Nnia Jiménez DO Date Dictated: 11/07/16 1027 Date Transcribed: 11/07/161733 Estimator Printing: Signed 02-Nov-2016 SCREENING MAMM (CAD), BILAT Result: Comments: See Note; NOTES: [facility] Imaging Services [address] [facility] [place] [address] Verdana 4d SCREENING MAMM (CAD), BILAT MR#: [id number] Acct: [id number] Name: DARÍO AYON Rep #: [id number] : 1955 F 61 From: Jaya Mac MD PCP: Nina Jiménez DO Status: REG I Study: SCREENING MAMM (CAD), BILAT Date of Exam: 11/02/16 Exam# [id number] Ordering Dr: Nina Kingsley DO MAMMOGRAPHY - [...] will be sent to the patient by [facility] facility within 30 days. Approximately 10% of breast cancers are not detected by mammography. A normal mammogram should not delay biopsy of a clinically suspicious abnormality. [id number] Electronicall y Signed: Jaya Mac MD at 8:27 EDT Tel [phone], Service support [phone], CC: Nina Jiménez DO Estimator Printing: Signed 04-Jul-2016 Operative Report Result: Comments: See Note; NOTES: [facility] Medical Records Department [address] [place] [address] Operative Report MR#: [id number] Acct: [id number] Name: NINA AYON Rep #: [id number] : 1955 61 From: Juan Covington MD PCP: Nina Jiménez DO Status: [facility] DATE OF SERVICE: 07/03/2016 DATE OF SERVICE: [...] MD Primary Care Physician T: NTS JOB: [id number] 07/04/16 0615 <Electronically signed by Juan Covington MD> Date Juan Covington MD Cosigner Signature (If Indicated): Date CC: Juan Covington MD; Nina Jiménez DO; Haile Mckee MD Date Dictated: 07/03/16 1104 Date Transcribed: 07/03/161103 Estimator Printing: Signed 03-Jul-2016 Operative Report Result: Comments: See Note; NOTES: [facility] Medical Records Department [address] [place] [address] Operative Report 07/03/16 1642 MR#: [id number] Acct: [id number] Name: DARÍO AYON Rep #: [id number] : 1955 61 From: Haile Mckee MD PCP: Nina Jiménez DO Status: [facility] Y Location: [facility] Problem List (1) Atrial fibrillation Status: [...] complica tions This note was generated with Votigo dictation software. It may contain incorrect words, spelling, and punctuation that were not noted in checking the note before signing. 07/03/16 1644 &#6 0;Electronically signed by Haile Mckee MD> Date Haile Mckee MD CC: Nina Jiménez DO; Haile Mckee MD Signed 03-Jul-2016 Echo Transesophageal (KATHY) Result: Comments: See Note; NOTES: [facility] Cardiovascular Services [address] [place] [address] Echo Transesophageal (KATHY) 07/03/16 0947 MR#: [id number] Acct: [id number] Name: TESSA AYALANINA B Rep #: [id number] : 1955 61 From: Haile Mckee MD Attending Dr: Haile Mckee MD Status: [facility] Ordering Dr: Haile Mckee MD Date: 07/03/16 Location: [facility] Sex: F C Admitted: Reason For Study: AFIB Medication KATHY probe passed with minimal difficulty. Cetacaine Topical Woodson given X3 orally. Versed 2 mg given [...] Dictated: 07/03/16 0947 Date Transcribed: 07/03/16 1436 Estimator Printing: Signed 28-Jun-2016 Chest PA and Lateral Result: Comments: See Note; NOTES: [facility] Imaging Services [address] [place] [address] Verdana 4d Chest PA and Lateral MR#: [id number] Acct: [id number] Name: NINA AYON #: [id number] : 1955 F 61 From: Johnathon Meza PCP: Nina Jiménez DO Status: PRE [facility] Study: Chest PA and Lateral Date of Exam: 06/28/16 Exam# [id number] Ordering Dr: Haile Mckee MD STUDY: X-RAY [...] at 6:38 EST Tel , Service support [phone], CC: Nina Jiménez DO; Haile Mckee MD Estimator Printing: Signed 19-Jun-2016 Nuclear Stress Test - Chemical Result: Comments: See Note; NOTES: [facility] Imaging Services [address] [place] [address] Candie 4d Nuclear Stress Test - Chemical MR#: [id number] Acct: [id number] Name: Ashlee AYON Rep #: [id number] : 1955 61 From: Haile Mckee MD [...] 60%. Haile Mckee MD T: NTS JOB: [id number] 06/19/161936 <Electronically signed by Haile Mckee MD> Date Haile Mckee MD CC: Nnia Diop on DO; Haile Mckee MD Date Dictated: 06/19/161406 Date Transcribed: 06/19/161406 Estimator Printing: Signed 08-Jun-2016 Echocardiogram Complete Result: Comments: See Note; NOTES: [facility] Cardiovascular Services [address] [facility] [place] [address] Echo Complete 06/08/16 1319 MR#: [id number] Acct: [id number] Name: NINA AYON Rep #: [id number] : 1955 61 From: Haile Mckee MD Attending Dr: Nina Jiménez DO Status: REG CLI Ordering Dr: Nina Jiménez DO Date: 06/08/16 Location: [facility] Sex: F C Admitted: Reas on For [...] Date Dictated: 06/08/16 1319 Date Transcribed: 06/08/161731 Estimator Printing: Signed 06-Jul-2014 Hepatobilliary Imaging Result: Comments: See Note; NOTES: [facility] Imaging Services [address] [place] [address] Nuclear Medicine Report MR#: [id number] Acct: [id number] Name: NINA AYON Rep #: [id number] : 1955 F 59 From: Steven Cunha DO PCP: Nina Jiménez DO Status: REG CLI Study: Hepatobilliary Imaging Date of Exam: 07/06/14 Exam# [id number] Ordering Dr: Kacey Patton CL INICAL: 59-year-old [...] Cunha DO at 8:3 5 EST Tel [phone], Service support [phone], CC: Kacey Jiménez DO Estimator Printing: Signed 02-Jul-2014 Small Bowel Series Only Result: Comments: See Note; NOTES: [facility] Imaging Services [address] [place] [address] Radiology Report MR#: [id number] Acct: [id number] Name: NINA AYON Rep #: [id number] : 1955 F 59 From: Jaya Mac MD PCP: Nina Jiménez DO Status: REG CLI Study: Small Bowel Series Only Date of Exam: 07/02/14 Exam# [id number] Ordering Dr: Kacey Patton CEDURE: SMALL BOWEL [...] Mac MD 11/27/13 at 11:02 EST Tel [phone], Service support [phone], RAD/Small Bowel Series Only IMPRESSION: Normal small bowel series. Electronically Signed: Jaya Mac MD at 11:02 EST Tel [phone], Service support [phone], CC: Kacey Patton; Nina Jiménez DO Estimator Printing: Signed 23-Jun-2014 Gallbladder Result: Comments: See Note; NOTES: [facility] Imaging Services [address] [facility] [place] [address] Ultrasound Report MR#: [id number] Acct: [id number] Name: NINA AYON Rep #: [id number] : 1955 F 59 From: Jaya Mac MD PCP: Nina Jiménez DO Status: REG CLI Study: Gallbladder Date of Exam: 06/23/14 Exam# [id number] Ordering Dr: Kacey Patton STUDY: ABDOMIN AL [...] Jaya Mac MD at 11:48 EST Tel [phone], Service support [phone], CC: Kacey Patton; Nina Jiménez DO Estimator Printing: Signed Immunization Name Dates Details Influenza (3 years and up) on: 29-Jul-2008 Pneumococcal (2 years and up) on: 14-Nov-2015 Comments: Site: Deltoid (Left) Lot #: [id number] Pneumococcal (2 years and up) on: 29-Jul-2008 Social History Name Dates Details Tobacco use: Never smoker. Status: Active Smoking Status Name Dates Details Never smoker Vital Signs Date Test Result Details 89-Ikg-279196:41 Temperature 97.9 f Comments: Method: Temporal Pulse [...] kg/m2 Body Surface Area Calculated 2.19 m2 2-Zgo-846761:32 Temperature 97.6 f Comments: Method: Temporal Pulse [...] kg/m2 Body Surface Area Calculated 2.22 m2 23-Uac-232598:57 Pulse 68 /min Comments: Pattern: Regular Respiration [...] Description Value Details :39 Lipase Comments: [facility] [address] [place], [place], [address] LIPASE 127 U/L (Normal) Range: 73-393 2-Lng-878317:39 Liver Profile Comments: [facility] [address] [place], [place], [address] D BILI 0.07 mg/dL (Normal) Range: 0.00-0.30 T BILI 0.30 mg/dL (Normal) Range: 0.20-1.00 ALT 37 U/L (Normal) Range: 13-56 ALK P 88 U/L (Normal) Range: 45-117 AST 30 U/L (Normal) Range: 15-37 GLOB 3.6 g/dL (Normal) Range: 2.2-4.2 ALB 3.9 g/dL (Normal) Range: 3.2-5.0 T PROT 7.5 g/dL (Normal) Range: 6.4-8.2 :10 Basic Metabolic Profile (BMP) Comments: [facility] [address] [facility] [place], [place], [address] GAP 9 (Normal) Range: 5-15 CO2 26.0 [...] A.D.A. criteria.Please note revised GLUCOSE reference range rfuroamft15/02/2018. 5-Ioq-581087:10 CBC W/Diff, Automated Comments: [facility] [address] [place], [place], [id number] Absolute Lymph 1.31 {X10_3/ul} (Normal) Range: 0.83-4.51 [...] 4.4-11.0 :10 Prothrombin Time w/INR Comments: [facility] [address] [place], [place], [address] INR 1.5 (Normal) PROTIME 17.9 s (Abnormal) Range: 11.7-14.9 0-Pag-872597:10 Troponin-I Comments: [facility] [address] [place], [address] TROPONIN-I < 0.015 ng/mL (Normal) Comments: TROPONIN-I EXPECTED VALUES <0.045 Negative 0.045 - 0.590 Consistent with Cardiac Damage > OR = 0.600 Critical Value Not every elevated troponin is indicative of ND. T hesevalues should be used with clinical judgement in examiningthe patient's clinical picture for diagnosis. To establisha diagnosis of ND versus myocardial injury, there must be ademonstrated rise and/ or fall in the troponin values, inaddition to ischemic symptoms, EKG changes, new regionalwall motion abnormality, and/or angiographical evidence. PLEASE NOTE: REFERENCE RANGES EDITED 12/30/1710-Feb-201852-Hju-033787:44 Basic Metabolic Profile (BMP) Comments: [facility] [address] [place], [place], [address] GAP 8 (Normal) Range: 5-15 CO2 28.0 [...] A.D.A. criteria.Please note revised GLUCOSE reference range uaxyrptcr96/02/2018. 99-Hff-886241:44 CBC-Complete Blood Cnt No Diff Comments: [facility] [address] [place], [place], [address](156) MPV 11.4 fL (Normal) Range: 6.2-12.0 PLT [...] 4.2-5.4 WBC 6.2 K/mm3 (Normal) Range: 4.4-11.0 24-Lgf-787432:44 Partial Thromboplast Time Comments: [facility] [address] [place], [place], [address] PTT 37.7 s (Abnormal) Range: 24.1-36.2 :44 Prothrombin Time w/INR Comments: [facility] [address] [place], [place], [address] INR 1.8 (Normal) PROTIME 21.0 s (Abnormal) Range: 11.7-14.9 5-Fqf-714067:37 Urinalysis, Office (87521) UA - LEUKOCYTE ESTERASE Moderate (Normal) UA - NITRITE Negative (Normal) URINE UROBILINGN RUBEN TIMED 2 mg/dL (Normal) UA - PROTEIN Negative mg/dL (Normal) UA - PH 7.0 (Normal) UA - BLOOD Hemolyzed Trace (Normal) UA - SPECIFIC GRAVITY 1.010 (Normal) UA - KETONES Negative mg/dL (Normal) UA - BILIRUBIN Negative (Normal) UA - GLUCOSE Negative (Normal) 8-Qlg-790579:33 Blood Glucose , Office (29703) Blood Glucose , Office 131 (Normal) 5-Evu-444446:33 HgA1C , Office (98326) HgA1C , Office 5.9 % (Normal) Range: 4.6 - 7.1 :22 H-Pylori IGA,IGG,IGM (45386) Comments: PATIENT NOT FASTINGPERFORMED BY: ADI [facility] CenterZotugf9159 [facility] [id number] H pylori, IgM Abs <9.0 {units} (Normal) Range: 0.0-8.9 Comments: Negative <9.0 Equivocal 9.0 - 11.0 Positive >11.0 .This test was developed and its performance characteristicsdetermined by [facility]. It has not been cleared or approvedby the Food and Drug Administration. H. pylori, IgA Abs <9.0 {units} (Normal) Range: 0.0-8.9 Comments: Negative <9.0 Equivocal 9.0 - 11.0 Positive >11.0 H. pylori, IgG Abs <0.9 U/mL (Normal) Range: 0.0-0.8 Comments: Negative <0.9 Indeterminate 0.9 - 1.0 Positive >1.0 Effective August the reference interval will be changing to: Negative <0.8 Equivocal 0.8 Positive >0.8 6-Acl-069657:19 Microscopic Examination Comments: PATIENT WAS FASTINGPERFORMED BY: ADI [facility], RoswellVjhphh7966 [facility] [id number] Bacteria Few (Normal) Mucus Threads Present (Normal) Epithelial Cells (non renal) >10 {/hpf} (Abnormal) Range: 0 - 10 RBC 3-10 {/hpf} (Abnormal) Range: 0 - 2 WBC >30 {/hpf} (Abnormal) Range: 0 - 5 0-Kjh-511433:21 Basic Metabolic Profile (BMP) Comments: Order Date: 05/08/17Order Info: 0667-1 - *BMPComments: Reason:[facility] [address] [place], [place], [address] GAP 5 (Normal) Range: 5-15 CO2 31.0 [...] 7-18 GLU 93 mg/dL (Normal) Range: 70-110 85-Qod-121636:34 HGB A1C (80897) Comments: PATIENT WAS FASTINGPERFORMED BY: ADI [facility]6370 [facility] [id number] Hemoglobin A1c 6.5 % (Abnormal) Range: 4.8-5.6 Comments: . Pre-diabetes: 5.7 - 6.4 Diabetes: >6.4 Glycemic control for adults with diabetes: <7.0 :34 MICROALBUMIN: CREATININE RATIO Comments: PATIENT WAS FASTINGPERFORMED BY: [facility], RoswellMbhkew0041 [facility] [id number] (30265) AND (28870) Microalb/Creat Ratio <13.7 {mg/g_creat} (Normal) Range: 0.0-30.0 Microalbumin, Urine <3.0 ug/mL (Normal) Creatinine, Urine 21.9 mg/dL (Normal) :34 TSH (94968) Comments: PATIENT WAS FASTINGPERFORMED BY: [facility], RoswellSjilfb5039 [facility] [id number] TSH 2.420 {uIU/mL} (Normal) Range: 0.450-4.500 :34 Lipid Panel (89225) Comments: PATIENT WAS FASTINGPERFORMED BY: [facility], RoswellOlrdse7743 [facility] [id number] LDL/HDL Ratio 1.9 {ratio_units} (Normal) Range: 0.0-3.2 Comments: LDL/HDL Ratio Men Women 1/2 Avg.Risk 1.0 1.5 Av g.Risk 3.6 3.2 2X Avg.Risk 6.2 5.0 3X Avg.Risk 8.0 6.1 LDL Cholesterol Calc 132 mg/dL (Abnormal) Range: 0-99 VLDL Cholesterol Aneesh 15 mg/dL (Normal) Range: 5-40 HDL Cholesterol 71 mg/dL (Normal) Triglycerides 73 mg/dL (Normal) Range: 0-149 Cholesterol, Total 218 mg/dL (Abnormal) Range: 100-199 41-Yaz-166989:34 Metabolic Panel, Comprehensive Comments: PATIENT WAS FASTINGPERFORMED BY: [facility]GISSaint [facility] CenterVbynwd9137 [facility] [id number] (66725) ALT (SGPT) 27 [iU]/L (Normal) Range: 0-32 [...] Glucose, Serum 96 mg/dL (Normal) Range: 65-99 99-Qov-571825:34 CBC WITH MANUAL DIFF (63780) Comments: PATIENT WAS FASTINGPERFORMED BY: [facility]CoSaint [facility] CenterGujnsz0382 [facility] [id number] Immature Grans (Abs) 0.0 {x10E3/uL} (Normal) Range: [...] 7.4 {x10E3/uL} (Normal) Range: 3.4-10.8 :19 TSH (70655) Comments: PATIENT WAS FASTINGPERFORMED BY: [facility] [id number] TSH 2.050 {uIU/mL} (Normal) Range: 0.450-4.500 :19 URINALYSIS, W/ MICRO (29018) Comments: PATIENT WAS FASTINGPERFORMED BY: [facility] [id number] Microscopic Examination See below: (Normal) Comments: Microscopic was indicated and was performed. Nitrite, Urine Negative (Normal) Urobilinogen,Semi-Qn 0.2 mg/dL (Normal) Range: 0.2-1.0 Bilirubin Negative (Normal) Occult Blood 1+ (Abnormal) Ketones Negative (Normal) Glucose Negative (Normal) Protein Negative (Normal) WBC Esterase 3+ (Abnormal) Appearance Cloudy (Abnormal) Urine-Color Yellow (Normal) pH 7.0 (Normal) Range: 5.0-7.5 Specific Kelford 1.015 (Normal) Range: 1.005-1.030 :19 MICROALBUMIN: CREATININE RATIO Comments: PATIENT WAS FASTINGPERFORMED BY: [facility] [id number] (36231) AND (45151) Microalb/Creat Ratio 9.1 {mg/g_creat} (Normal) Range: 0.0-30.0 Microalbumin, Urine 7.4 ug/mL (Normal) Creatinine, Urine 81.3 mg/dL (Normal) :19 METABOLIC PANEL, COMPREHENSIVE Comments: PATIENT WAS FASTINGPERFORMED BY: [employer] Cweeeq9647 [facility] [id number] (63718) ALT (SGPT) 43 [iU]/L (Abnormal) Range: 0-32 [...] Glucose, Serum 104 mg/dL (Abnormal) Range: 65-99 3-Hht-804147:19 LIPID PANEL (96408) Comments: PATIENT WAS FASTINGPERFORMED BY: [facility]6370 [facility] [id number] LDL/HDL Ratio 2.7 {ratio_units} (Normal) Range: 0.0-3.2 Comments: LDL/HDL Ratio Men Women 1/2 Avg.Risk 1.0 1.5 Av g.Risk 3.6 3.2 2X Avg.Risk 6.2 5.0 3X Avg.Risk 8.0 6.1 LDL Cholesterol Calc 145 mg/dL (Abnormal) Range: 0-99 VLDL Cholesterol Aneesh 18 mg/dL (Normal) Range: 5-40 HDL Cholesterol 53 mg/dL (Normal) Triglycerides 89 mg/dL (Normal) Range: 0-149 Cholesterol, Total 216 mg/dL (Abnormal) Range: 100-199 9-Lhg-872439:19 CBC W/AUTO DIFF WBC (70045) Comments: PATIENT WAS FASTINGPERFORMED BY: LabCoSaint Francis Medical CenterRckpwh2147 [facility] [id number] Immature Grans (Abs) 0.0 {x10E3/uL} (Normal) Range: [...] {x10E3/uL} (Normal) Range: 3.4-10.8 :19 HGB A1C (76184) Comments: PATIENT WAS FASTINGPERFORMED BY: LabCoSaint Francis Medical CenterRdstze3834 [facility] [id number] Hemoglobin A1c 6.2 % (Abnormal) Range: 4.8-5.6 Comments: . Pre-diabetes: 5.7 - 6.4 Diabetes: >6.4 Glycemic control for adults with diabetes: <7.0 :19 HGB A1C (70507) Comments: PATIENT NOT FASTINGPERFORMED BY: LabCoSaint Francis Medical CenterVdkgza2594 [facility] [id number] Hemoglobin A1c 6.2 % (Abnormal) Range: 4.8-5.6 Comments: . Pre-diabetes: 5.7 - 6.4 Diabetes: >6.4 Glycemic control for adults with diabetes: <7.0 :33 Basic Metabolic Profile (BMP) Comments: Order Date: 06/21/16Order Info: [id number] - *BMPOrder Date: 06/21/16Order Info: [id number] - *BMPComments: Reason:[facility] G[address]grv[address] [place], [address] GAP 8 (Normal) Range: 5-15 CO2 27.0 [...] Microscopic Examination Comments: PATIENT NOT FASTINGPERFORMED BY: [employer] [facility] [id number] Bacteria None seen (Normal) Mucus Threads Present (Normal) Epithelial Cells (non renal) 0-10 {/hpf} (Normal) Range: 0 - 10 RBC 0-2 {/hpf} (Normal) Range: 0 - 2 WBC 0-5 {/hpf} (Normal) Range: 0 - 5 :37 URINALYSIS, W/ MICRO (48266) Comments: PATIENT NOT FASTINGPERFORMED BY: [employer] [facility] [id number] Microscopic Examination See below: (Normal) Comments: Microscopic was indicated and was performed. Nitrite, Urine Negative (Normal) Urobilinogen,Semi-Qn 0.2 mg/dL (Normal) Range: 0.2-1.0 Bilirubin Negative (Normal) Occult Blood Negative (Normal) Ketones Negative (Normal) Glucose Negative (Normal) Protein Negative (Normal) WBC Esterase 2+ (Abnormal) Appearance Clear (Normal) Urine-Color Yellow (Normal) pH 8.0 (Abnormal) Range: 5.0-7.5 Specific Kelford 1.011 (Normal) Range: 1.005-1.030 :37 TSH (50715) Comments: PATIENT NOT FASTINGPERFORMED BY: [employer] Rprzoj5903 [facility] [id number] TSH 2.050 {uIU/mL} (Normal) Range: 0.450-4.500 :37 METABOLIC PANEL, COMPREHENSIVE Comments: PATIENT NOT FASTINGPERFORMED BY: [employer] Sbxdwm0452 [facility] [id number] (65226) ALT (SGPT) 31 [iU]/L (Normal) Range: 0-32 [...] Glucose, Serum 96 mg/dL (Normal) Range: 65-99 33-Tbs-639223:37 CBC W/AUTO DIFF WBC (04039) Comments: PATIENT NOT FASTINGPERFORMED BY: LabCoSaint Francis Medical CenterXbngou1242 [facility] [id number] Immature Grans (Abs) 0.0 {x10E3/uL} (Normal) Range: [...] (Normal) Range: 3.4-10.8 :08 HgA1C , Office (03836) HgA1C , Office 5.9 % (Normal) Range: 4.6 - 7.1 :49 HGB A1C (30646) Comments: PATIENT WAS FASTINGPERFORMED BY: InstaGISSaint Francis Medical CenterDkjdaj8771 [facility] [id number] Hemoglobin A1c 6.1 % (Abnormal) Range: 4.8-5.6 Comments: . Pre-diabetes: 5.7 - 6.4 Diabetes: >6.4 Glycemic control for adults with diabetes: <7.0 :49 TSH (45569) Comments: PATIENT WAS FASTINGPERFORMED BY: InstaGISSaint Francis Medical CenterZphnbg1977 [facility] [id number] TSH 2.280 {uIU/mL} (Normal) Range: 0.450-4.500 :49 MICROALBUMIN: CREATININE RATIO Comments: PATIENT WAS FASTINGPERFORMED BY: InstaGISSaint Francis Medical CenterWhnatn1643 [facility] [id number] (00246) AND (43054) Microalb/Creat Ratio <3.5 {mg/g_creat} (Normal) Range: 0.0-30.0 Microalbumin, Urine <3.0 ug/mL (Normal) Creatinine, Urine 85.4 mg/dL (Normal) 0-Gut-495216:49 METABOLIC PANEL, COMPREHENSIVE Comments: PATIENT WAS FASTINGPERFORMED BY: LabCoSaint Francis Medical CenterRpwgtt9196 [facility] [id number] (62695) ALT (SGPT) 19 [iU]/L (Normal) Range: 0-32 [...] Glucose, Serum 101 mg/dL (Abnormal) Range: 65-99 9-Qmq-388760:49 LIPID PANEL (21267) Comments: PATIENT WAS FASTINGPERFORMED BY: InstaGISSaint Francis Medical CenterOamwzs2190 [facility] [id number] LDL/HDL Ratio 2.3 {ratio_units} (Normal) Range: 0.0-3.2 Comments: LDL/HDL Ratio Men Women 1/2 Avg.Risk 1.0 1.5 Av g.Risk 3.6 3.2 2X Avg.Risk 6.2 5.0 3X Avg.Risk 8.0 6.1 LDL Cholesterol Calc 132 mg/dL (Abnormal) Range: 0-99 VLDL Cholesterol Aneesh 10 mg/dL (Normal) Range: 5-40 HDL Cholesterol 58 mg/dL (Normal) Triglycerides 48 mg/dL (Normal) Range: 0-149 Cholesterol, Total 200 mg/dL (Abnormal) Range: 100-199 1-Xlw-810353:49 CBC W/AUTO DIFF WBC (90507) Comments: PATIENT WAS FASTINGPERFORMED BY: LabBlue River TechnologySaint Francis Medical CenterXelaou1728 [facility] [id number]; will review at 08/07 appt Immature Grans [...] Microscopic Examination Comments: PATIENT WAS FASTINGPERFORMED BY: InstaGISSaint Francis Medical CenterCsgciu7261 [facility] [id number] Bacteria Few (Normal) Mucus Threads Present (Normal) Epithelial Cells (non renal) 0-10 {/hpf} (Normal) Range: 0 - 10 RBC 0-2 {/hpf} (Normal) Range: 0 - 2 WBC 0-5 {/hpf} (Normal) Range: 0 - 5 :48 Blood Glucose , Office (16035) Blood Glucose , Office 75 (Normal) :48 HgA1C , Office (03199) HgA1C , Office 6.0 % (Normal) Range: 4.6 - 7.1 :18 TSH (95656) Comments: PATIENT WAS FASTINGPERFORMED BY: InstaGISSaint Francis Medical CenterXyawlp1552 [facility] [id number] TSH 1.930 {uIU/mL} (Normal) Range: 0.450-4.500 :18 URINALYSIS, W/ MICRO (65048) Comments: PATIENT WAS FASTINGPERFORMED BY: InstaGISSaint Francis Medical CenterZgyqhv6789 [facility] [id number] Microscopic Examination See below: (Normal) Comments: Microscopic was indicated and was performed. Nitrite, Urine Negative (Normal) Urobilinogen,Semi-Qn 0.2 mg/dL (Normal) Range: 0.2-1.0 Bilirubin Negative (Normal) Occult Blood Negative (Normal) Ketones Negative (Normal) Glucose Negative (Normal) Protein Negative (Normal) WBC Esterase 1+ (Abnormal) Appearance Clear (Normal) Urine-Color Yellow (Normal) pH 7.5 (Normal) Range: 5.0-7.5 Specific Kelford 1.023 (Normal) Range: 1.005-1.030 :18 MICROALBUMIN: CREATININE RATIO Comments: PATIENT WAS FASTINGPERFORMED BY: InstaGISSaint Francis Medical CenterJjsmit3166 [facility] [id number] (81522) AND (83020) Microalb/Creat Ratio 4.2 {mg/g_creat} (Normal) Range: 0.0-30.0 Microalbumin, Urine 6.3 ug/mL (Normal) Creatinine, Urine 149.4 mg/dL (Normal) :18 METABOLIC PANEL, COMPREHENSIVE Comments: PATIENT WAS FASTINGPERFORMED BY: InstaGISLovelace Regional Hospital, RoswellBnbiqr2015 [facility] [id number] (61056) ALT (SGPT) 30 [iU]/L (Normal) Range: 0-32 [...] Range: 65-99 :18 CBC W/AUTO DIFF WBC (52147) Comments: PATIENT WAS FASTINGPERFORMED BY: LabCoLovelace Regional Hospital, RoswellLjycfi1953 [facility] [id number] Immature Grans (Abs) 0.0 {x10E3/uL} (Normal) Range: [...] 6.1 {x10E3/uL} (Normal) Range: 3.4-10.8 :02 TSH (52131) Comments: PATIENT WAS FASTINGPERFORMED BY: LabCoSaint Francis Medical CenterZjqdlh9585 [facility] [id number] TSH 2.070 {uIU/mL} (Normal) Range: 0.450-4.500 :02 CBC W/AUTO DIFF WBC Comments: PATIENT WAS FASTINGPERFORMED BY: [facility]6370 [facility] [id number] Information: [id number] (02405) Immature Grans (Abs) 0.0 {x10E3/uL} (Normal) Range: [...] 3.77-5.28 WBC 5.1 {x10E3/uL} (Normal) Range: 3.4-10.8 37-Bzi-012446:02 MICROALBUMIN: CREATININE RATIO Comments: PATIENT WAS FASTINGPERFORMED BY: [facility]6370 [facility] [id number] (60995) AND (59066) Microalb/Creat Ratio 4.5 {mg/g_creat} (Normal) Range: 0.0-30.0 Microalbumin, Urine 5.7 ug/mL (Normal) Range: 0.0-17.0 Creatinine, Urine 127.2 mg/dL (Normal) Range: 15.0-278.0 :02 METABOLIC PANEL, COMPREHENSIVE Comments: PATIENT WAS FASTINGPERFORMED BY: [employer]70 mPuraC[facility] [id number] (73412) ALT (SGPT) 20 [iU]/L (Normal) Range: 0-32 [...] mg/dL (Normal) Range: 65-99 :02 LIPID PANEL (95914) Comments: PATIENT WAS FASTINGPERFORMED BY: [employer]70 mPuraC[facility] [id number] LDL/HDL Ratio 2.1 {ratio_units} (Normal) Range: 0.0-3.2 [...] Cholesterol, Total 203 mg/dL (Abnormal) Range: 100-199 12-Tqm-707044:02 HGB A1C (05670) Comments: PATIENT WAS FASTINGPERFORMED BY: [facility]6370 [facility] [id number] Hemoglobin A1c 6.0 % (Abnormal) Range: 4.8-5.6 Comments: . Pre-diabetes: 5.7 - 6.4 Diabetes: >6.4 Glycemic control for adults with diabetes: <7.0 54-Tyu-538570:15 CULTURE, SPUTUM (63352) Comments: PERFORMED BY: LabCoSaint Francis Medical CenterLredsy[address] [place] [address] [id number] Information: SRC: SPUTUM Result 1 RRF (Normal) Comments: Routine respiratory jamia Lower Respiratory Culture Final report (Normal) 02-Ryv-267124:45 Rapid Flu (87454 x 2) Influenza A Ag negative (Normal) 00-Cxi-925956:50 HgA1C , Office (34767) HgA1C , Office 6.4 % (Normal) Range: 4.6 - 7.1 80-Xyl-132637:50 Blood Glucose , Office (57680) Blood Glucose , Office 102 (Normal) Comments: non-fasting 3-Mns-501893:00 Urinalysis, Office (87559) UA - LEUKOCYTE ESTERASE Negative (Normal) UA [...] Microscopic Examination Comments: PATIENT WAS FASTINGPERFORMED BY: LabVeterans Affairs Medical Center6370 [facility] [id number] Bacteria Moderate (Abnormal) Mucus Threads Present (Normal) Epithelial Cells (non renal) >10 {/hpf} (Abnormal) Range: 0 - 10 RBC 0-2 {/hpf} (Normal) Range: 0 - 2 WBC >30 {/hpf} (Abnormal) Range: 0 - 5 :19 HgA1C , Office (55283) HgA1C , Office 6.1 % (Normal) Range: 4.6 - 7.1 :19 Blood Glucose , Office (05668) Blood Glucose , Office 98 (Normal) :19 HgA1C , Office (41407) HgA1C , Office 5.9 % (Normal) Range: 4.6 - 7.1 :19 Blood Glucose , Office (51195) Blood Glucose , Office 97 (Normal) 72-Onc-815616:55 METABOLIC PANEL, COMPREHENSIVE Comments: PATIENT NOT FASTINGPERFORMED BY: LabCoJoseph [place] 4284370 [facility] [id number] (46829) ALT (SGPT) 17 [iU]/L (Normal) Range: 0-32 [...] Glucose, Serum 85 mg/dL (Normal) Range: 65-99 38-Ypb-688292:55 CBC WITH MANUAL DIFF Comments: PATIENT NOT FASTINGPERFORMED BY: [facility]I [facility] Stqzwr2155 [facility] [id number] Information: [id number]; will review at 3-30 appt (19959) Immature Grans (Abs) 0.0 {x10E3/uL} (Normal) Range: [...] (Normal) Range: 3.4-10.8 :41 URINALYSIS, W/ MICRO (90397) Comments: PATIENT WAS FASTINGPERFORMED BY: Cub[employer] TelecomSaint Francis Medical CenterKhjtlw5435 [facility] [id number] Microscopic Examination See below: (Normal) Comments: Microscopic was indicated and was performed. Nitrite, Urine Negative (Normal) Urobilinogen,Semi-Qn 0.2 mg/dL (Normal) Range: 0.0-1.9 Bilirubin Negative (Normal) Occult Blood Negative (Normal) Ketones Negative (Normal) Glucose Negative (Normal) Protein Negative (Normal) WBC Esterase 3+ (Abnormal) Appearance Clear (Normal) Urine-Color Yellow (Normal) pH 6.5 (Normal) Range: 5.0-7.5 Specific Kelford 1.020 (Normal) Range: 1.005-1.030 :41 MICROALBUMIN: CREATININE RATIO Comments: PATIENT WAS FASTINGPERFORMED BY: InstaGISSaint Francis Medical CenterOyzblr1680 [facility] [id number] (29834) AND (62474) Microalb/Creat Ratio 9.9 {mg/g_creat} (Normal) Range: 0.0-30.0 Microalbumin, Urine 10.2 ug/mL (Normal) Range: 0.0-17.0 Creatinine, Urine 103.0 mg/dL (Normal) Range: 15.0-278.0 :41 METABOLIC PANEL, COMPREHENSIVE Comments: PATIENT WAS FASTINGPERFORMED BY: SuncoreVeterans Affairs Medical Center6370 [facility] [id number] (70998) ALT (SGPT) 33 [iU]/L (Abnormal) Range: 0-32 [...] mg/dL (Normal) Range: 65-99 :41 LIPID PANEL (81987) Comments: PATIENT WAS FASTINGPERFORMED BY: [employer] [id number] LDL/HDL Ratio 1.8 {ratio_units} (Normal) Range: 0.0-3.2 [...] MANUAL DIFF Comments: PATIENT WAS FASTINGPERFORMED BY: [employer] Systemsinspira [facility] [place] [id number] Information: [id number] (96451) Immature Grans (Abs) 0.0 {x10E3/uL} (Normal) Range: [...] 7.1 {x10E3/uL} (Normal) Range: 3.4-10.8 :41 TSH (29842) Comments: PATIENT WAS FASTINGPERFORMED BY: [employer] Rwickz4828 [facility] [id number] TSH 2.910 {uIU/mL} (Normal) Range: 0.450-4.500 39-Qra-451940:29 HEMOGLOBIN GLYCLATED (HGB Comments: PATIENT NOT FASTINGPERFORMED BY: SuncoreCoLovelace Regional Hospital, RoswellJilgaj6794 [facility] [id number] Information: [id number] A1C) (10262) Hemoglobin A1c 6.1 % (Abnormal) Range: 4.8-5.6 Comments: . Increased risk for diabetes: 5.7 - 6.4 Diabetes: >6.4 Glycemic control for adults with diabetes: <7.0 :48 HgA1C , Office (49119) HgA1C , Office 9.0 % (Abnormal) Range: 4.6 - 7.1 :48 Blood Glucose , Office (92713) Blood Glucose , Office 125 (Normal) :08 HgA1C , Office (41777) HgA1C , Office 5.8 % (Normal) Range: 4.6 - 7.1 :08 Blood Glucose , Office (82317) Blood Glucose , Office 88 (Normal) 67-Lzl-292388:26 Rapid Flu (53820 x 2) Influenza A Ag negative A and B (Normal) :01 HgA1C , Office (73430) HgA1C , Office 6.0 % (Normal) Range: 4.6 - 7.1 :01 Blood Glucose , Office (59936) Blood Glucose , Office 79 (Normal) :01 HgA1C , Office (34717) HgA1C , Office 6.3 % (Normal) Range: 4.6 - 7.1 :00 Blood Glucose , Office (70606) Blood Glucose , Office 99 (Normal) :46 Microscopic Examination Comments: PATIENT WAS FASTINGPERFORMED BY: [employer] Lagnrt3291 [facility] [id number] Bacteria None seen (Normal) Mucus Threads Present (Normal) Epithelial Cells (non renal) 0-10 {/hpf} (Normal) Range: 0 - 10 RBC 0-3 {/hpf} (Normal) Range: 0 - 3 WBC 6-10 {/hpf} (Abnormal) Range: 0 - 5 :46 TSH (17887) Comments: PATIENT WAS FASTINGPERFORMED BY: [employer] Gvayrs3370 [facility] [id number] TSH 2.400 {uIU/mL} (Normal) Range: 0.450-4.500 :46 URINALYSIS, W/ MICRO (36438) Comments: PATIENT WAS FASTINGPERFORMED BY: [facility]6370 [facility] [id number] Microscopic Examination See below: (Normal) Nitrite, Urine Negative (Normal) Urobilinogen,Semi-Qn 0.2 mg/dL (Normal) Range: 0.0-1.9 Bilirubin Negative (Normal) Occult Blood Negative (Normal) Ketones Negative (Normal) Glucose Negative (Normal) Protein Trace (Normal) WBC Esterase 2+ (Abnormal) Appearance Clear (Normal) Urine-Color Yellow (Normal) pH 8.0 (Abnormal) Range: 5.0-7.5 Specific Kelford 1.026 (Normal) Range: 1.005-1.030 :46 MICROALBUMIN: CREATININE RATIO Comments: PATIENT WAS FASTINGPERFORMED BY: InstaGISSaint Francis Medical CenterWjwood5003 [facility] [id number] (19149) AND (48869) Microalb/Creat Ratio 2.4 {mg/g_creat} (Normal) Range: 0.0-30.0 Microalbumin, Urine 3.7 ug/mL (Normal) Range: 0.0-17.0 Creatinine, Urine 151.9 mg/dL (Normal) Range: 15.0-278.0 :46 METABOLIC PANEL, COMPREHENSIVE Comments: PATIENT WAS FASTINGPERFORMED BY: InstaGISSaint Francis Medical CenterQwtsug7592 [facility] [id number] (20221) ALT (SGPT) 29 [iU]/L (Normal) Range: 0-32 [...] mg/dL (Abnormal) Range: 65-99 :46 LIPID PANEL (96286) Comments: PATIENT WAS FASTINGPERFORMED BY: [employer]70 [facility] [id number] LDL/HDL Ratio 1.8 {ratio_units} (Normal) Range: 0.0-3.2 [...] MANUAL DIFF Comments: PATIENT WAS FASTINGPERFORMED BY: Cubic TelecomSaint Francis Medical CenterZgswcn5466 [facility] [id number] Information: SRC: URINE (47172) Immature Grans (Abs) 0.0 {x10E3/uL} (Normal) Range: [...] {x10E3/uL} (Normal) Range: 4.0-10.5 :47 CCP ANTIBODY (49407) Comments: PATIENT WAS FASTINGPERFORMED BY: [employer] [facility] [id number] BY: InstaGIS[address] [id number] CCP Antibodies IgG/IgA 22 {units} (Abnormal) Range: 0-19 Comments: Negative <20 Weak positive 20 - 39 Moderate positive 40 - 59 Strong positive >59 :47 SED RATE ERYTHROCYTE Comments: PATIENT WAS FASTINGPERFORMED BY: [employer] [facility] [id number] BY: [address] [id number] (08853) Sedimentation Rate-Westergren 3 mm/h (Normal) Range: 0-40 :47 C-REACTIVE PROTEIN (96523) Comments: PATIENT WAS FASTINGPERFORMED BY: [place] 6693270 [facility] [id number] BY: [address] [id number] C-Reactive Protein, Quant 6.5 mg/L (Abnormal) Range: 0.0-4.9 :47 RHEUMATOID FACTOR-QUANT Comments: PATIENT WAS FASTINGPERFORMED BY: InstaGIS[address] [id number] BY: [address] [id number] (89671) RA Latex Turbid. 10.2 {IU/mL} (Normal) Range: 0.0-13.9 :47 YAMIL (ANTINUCLEAR ANTIBODY) Comments: PATIENT WAS FASTINGPERFORMED BY: [employer] [id number] BY: [address] [id number] (43943) YAMIL Direct Negative (Normal) :35 HgA1C , Office (52416) HgA1C , Office 6.8 % (Normal) Range: 4.6 - 7.1 :35 Blood Glucose , Office (85854) Blood Glucose , Office 89 (Normal) Comments: PATIENT DID ON HER OWN MACHINE :56 HgA1C , Office (05614) HgA1C , Office 6.0 % (Normal) Range: 4.6 - 7.1 :56 Blood Glucose , Office (86224) Blood Glucose , Office 100 (Normal) 91-Jig-611644:45 Microscopic Examination Comments: PATIENT WAS FASTINGPERFORMED BY: LabJoshua Ville 4523670 [facility] [id number] Bacteria Many (Abnormal) Mucus Threads Present (Normal) Epithelial Cells (non renal) >10 {/hpf} (Abnormal) Range: 0 - 10 RBC 0-3 {/hpf} (Normal) Range: 0 - 3 WBC 11-30 {/hpf} (Abnormal) Range: 0 - 5 :02 HgA1C , Office (47954) HgA1C , Office 6.1 % (Normal) Range: 4.6 - 7.1 :02 Blood Glucose , Office (13846) Blood Glucose , Office 96 (Normal) :41 CBC With Differential/Platelet Comments: PATIENT WAS FASTINGPERFORMED BY: LabCoSaint Francis Medical CenterHgznrr7424 [facility] [id number] Immature Grans (Abs) 0.0 {x10E3/uL} (Normal) Range: [...] 3.80-5.10 WBC 5.5 {x10E3/uL} (Normal) Range: 4.0-10.5 48-Nnp-738623:41 Comp. Metabolic Panel (14) Comments: PATIENT WAS FASTINGPERFORMED BY: LabCoSaint Francis Medical CenterKosxfq0896 [facility] [id number] ALT (SGPT) 22 [iU]/L (Normal) Range: 0-40 [...] With LDL/HDL Comments: PATIENT WAS FASTINGPERFORMED BY: InstaGISSaint Francis Medical CenterOofggf3012 [facility] [id number] Ratio LDL/HDL Ratio 1.7 {ratio_units} (Normal) Range: [...] Randm Ur Comments: PATIENT WAS FASTINGPERFORMED BY: SuncoreVeter[facility] Affairs Medical Center6370 [facility] [id number] Microalb/Creat Ratio 5.5 {mg/g_creat} (Normal) Range: 0.0-30.0 Microalbumin, Urine 9.9 ug/mL (Normal) Range: 0.0-17.0 Creatinine, Urine 181.2 mg/dL (Normal) Range: 15.0-278.0 89-Yfl-229074:41 Microscopic Examination Comments: PATIENT WAS FASTINGPERFORMED BY: SuncoreVeterans Affairs Medical Center6370 [facility] [id number] Bacteria Few (Normal) Mucus Threads Present (Normal) Epithelial Cells (non >10 {/hpf} Range: 0 - 10 renal) (Abnormal) RBC 0-3 {/hpf} (Normal) Range: 0 - 3 WBC 0-5 {/hpf} (Normal) Range: 0 - 5 TSH 2.900 {uIU/mL} Comments: PATIENT WAS FASTINGPERFORMED BY: [facility]6370 [facility] [id number] 1:41 (Normal) Range: 0.450-4.500 64-Gua-763823:41 Urinalysis, Complete Comments: PATIENT WAS FASTINGPERFORMED BY: [address] RoadDublin [place] [id number] Microscopic Examination See below: (Normal) Nitrite, Urine Negative (Normal) Urobilinogen,Semi-Qn 0.2 mg/dL (Normal) Range: 0.0-1.9 Bilirubin Negative (Normal) Occult Blood Negative (Normal) Ketones Negative (Normal) Glucose Negative (Normal) Protein Negative (Normal) WBC Esterase 1+ (Abnormal) Appearance Clear (Normal) Urine-Color Yellow (Normal) pH 6.5 (Normal) Range: 5.0-7.5 Specific Kelf[place] 1.024 (Normal) Range: 1.005-1.030 34-Oso-037498:45 URINALYSIS, W/ MICRO (28782) Comments: PATIENT WAS FASTINGPERFORMED BY: [facility]6370 [facility] [id number] Microscopic Examination See below: (Normal) Nitrite, Urine Negative (Normal) Urobilinogen,Semi-Qn 0.2 mg/dL (Normal) Range: 0.0-1.9 Bilirubin Negative (Normal) Ketones Negative (Normal) Occult Blood Negative (Normal) Glucose Negative (Normal) Protein 1+ (Abnormal) WBC Esterase 1+ (Abnormal) Appearance Turbid (Abnormal) Urine-Color Yellow (Normal) pH 8.5 (Abnormal) Range: 5.0-7.5 Specific Kelf[place] 1.027 (Normal) Range: 1.005-1.030 :45 TSH (55277) Comments: PATIENT WAS FASTINGPERFORMED BY: [facility]6370 [facility] [id number] TSH 1.890 {uIU/mL} (Normal) Range: 0.450-4.500 68-Gqo-904967:45 MICROALBUMIN: CREATININE RATIO Comments: PATIENT WAS FASTINGPERFORMED BY: [place] 6693270 [facility] [id number] (53127) AND (38033) Microalb/Creat Ratio 9.5 {mg/g_creat} (Normal) Range: 0.0-30.0 Creatinine, Urine 186.1 mg/dL (Normal) Range: 15.0-278.0 Microalbumin, Urine 17.7 ug/mL (Abnormal) Range: 0.0-17.0 :45 METABOLIC PANEL, COMPREHENSIVE Comments: PATIENT WAS FASTINGPERFORMED BY: ADI [employer]70 [facility] [id number] (12696) ALT (SGPT) 21 [iU]/L (Normal) Range: 0-40 [...] Glucose, Serum 98 mg/dL (Normal) Range: 65-99 [id number] LIPID PANEL ([id number]) Comments: PATIENT WAS FASTINGPERFORMED BY: [id number] [id number] LDL/HDL Ratio 1.6 {ratio_units} (Normal) Range: 0.0-3.2 [...] 100-199 Comments: Please note reference interval change [id number]-[id number] CBC WITH MANUAL DIFF Comments: PATIENT WAS FASTINGPERFORMED BY: [id number] [id number] Information: [id number] ([id number]) Immature Grans (Abs) 0.0 {x10E3/uL} (Normal) Range: [...] (Normal) Range: 4.0-10.5 :09 HgA1C , Office (94391) HgA1C , Office 6.0 % (Normal) Range: 4.6 - 7.1 :09 Blood Glucose , Office (81822) Blood Glucose , Office 79 (Normal) :33 Blood Glucose , Office (41172) Blood Glucose , Office 98 (Normal) :33 HgA1C , Office (91648) HgA1C , Office 6.0 % (Normal) Range: 4.6 - 7.1 :39 CBC & PLATELETS (AUTO) Comments: PATIENT WAS FASTINGPERFORMED BY: InstaGISSaint Francis Medical CenterFnysiv3198 [facility] [id number] (96173) Platelets 242 {x10E3/uL} (Normal) Range: 140-415 RDW 13.8 % (Normal) Range: 11.7-15.0 MCHC 33.2 g/dL (Normal) Range: 32.0-36.0 MCH 29.9 pg (Normal) Range: 27.0-34.0 Hematocrit 40.7 % (Normal) Range: 34.0-44.0 MCV 90 fL (Normal) Range: 80-98 Hemoglobin 13.5 g/dL (Normal) Range: 11.5-15.0 RBC 4.51 {x10E6/uL} (Normal) Range: 3.80-5.10 WBC 4.8 {x10E3/uL} (Normal) Range: 4.0-10.5 :39 METABOLIC PANEL, Comments: PATIENT WAS FASTINGPERFORMED BY: InstaGISSaint Francis Medical CenterUocfql1361 [facility] [id number] Information: [id number] COMPREHENSIVE (96679) ALT (SGPT) 20 [iU]/L (Normal) Range: 0-40 [...] Glucose, Serum 94 mg/dL (Normal) Range: 65-99 31-Bmm-105017:39 TSH (THYROID STIMULATING Comments: PATIENT WAS FASTINGPERFORMED BY: SuncoreCoSaint Francis Medical CenterSsydgx8305 [facility] [id number] HORMONE) (74565) TSH 2.830 {uIU/mL} (Normal) Range: 0.450-4.500 :39 MICROALBUMIN URINE QUANT Comments: PATIENT WAS FASTINGPERFORMED BY: Samanage LabCoSaint Francis Medical CenterQbxqml5396 [facility] [id number] (93789) Creatinine, Urine 107.7 mg/dL (Normal) Range: 15.0-278.0 Microalb/Creat Ratio 4.0 {mg/g_creat} (Normal) Range: 0.0-30.0 Microalbumin, Urine 4.3 ug/mL (Normal) Range: 0.0-17.0 :39 LIPID PANEL (27075) Comments: PATIENT WAS FASTINGPERFORMED BY: ADI [employer] Nmeskd0959 [facility] [id number]; appt 06/25/11 LDL/HDL Ratio 1.9 {ratio_units} (Normal) Range: 0.0-3.2 LDL Cholesterol Calc 108 mg/dL (Abnormal) Range: 0-99 VLDL Cholesterol Aneesh 15 mg/dL (Normal) Range: 5-40 HDL Cholesterol 56 mg/dL (Normal) Comments: According to ATP-III Guidelines, HDL-C >59 mg/dL is considered anegative risk factor for CHD. Triglycerides 76 mg/dL (Normal) Range: 0-149 Cholesterol, Total 179 mg/dL (Normal) Range: 100-199 49-Fwm-770473:03 HEMOGLOBIN GLYCLATED (HGB Comments: PATIENT NOT FASTINGPERFORMED BY: [employer] Kartoj7092 [facility] [id number] Information: [id number] A1C) (05779) Hemoglobin A1c 6.0 % (Abnormal) Range: 4.8-5.6 Comments: Increased risk for diabetes: 5.7 - 6.4 Diabetes: >6.4 Glycemic control for adults with diabetes: <7.0 08-Dxq-391953:42 Blood Glucose , Office (00752) Blood Glucose , Office 120 (Normal) Comments: patient reported. Showed me on her meter and declined to have done in office today. 91-Qoj-345788:32 Microscopic Examination Comments: PATIENT WAS FASTINGPERFORMED BY: [employer] Njdzgx2730 [facility] [id number] Bacteria Moderate (Abnormal) Mucus Threads Present (Normal) Epithelial Cells (non renal) 0-10 {/hpf} (Normal) Range: 0 - 10 RBC 0-3 {/hpf} (Normal) Range: 0 - 3 WBC 0-5 {/hpf} (Normal) Range: 0 - 5 05-Arm-808399:32 URINALYSIS, W/ MICRO (08060) Comments: PATIENT WAS FASTINGPERFORMED BY: Cubic TelecomSaint Francis Medical CenterOeacxb8402 [facility] [id number] Microscopic Examination See below: (Normal) Bilirubin Negative (Normal) Microscopic Examination MICRON (Normal) Comments: Microscopic follows if indicated. Nitrite, Urine Negative (Normal) Urobilinogen,Semi-Qn 0.2 mg/dL (Normal) Range: 0.0-1.9 Glucose Negative (Normal) Ketones Negative (Normal) Occult Blood Negative (Normal) Appearance Clear (Normal) Protein Negative (Normal) WBC Esterase Negative (Normal) pH 7.0 (Normal) Range: 5.0-7.5 Urine-Color Yellow (Normal) Specific [place] 1.020 (Normal) Range: 1.005-1.030 81-Txu-710469:32 METABOLIC PANEL, COMPREHENSIVE Comments: PATIENT WAS FASTINGPERFORMED BY: Cubic TelecomSaint Francis Medical CenterPvsgud4824 [facility] [id number] (11534) ALT (SGPT) 18 [iU]/L (Normal) Range: 0-40 [...] Glucose, Serum 90 mg/dL (Normal) Range: 65-99 23-Glz-152532:32 CBC WITH MANUAL DIFF Comments: PATIENT WAS FASTINGPERFORMED BY: LabCoSaint Francis Medical CenterCxrwjp6063 [facility] [id number] Information: [id number] (85469) Immature Grans (Abs) 0.0 {x10E3/uL} (Normal) Range: [...] 3.80-5.10 WBC 5.0 {x10E3/uL} (Normal) Range: 4.0-10.5 73-Arx-690634:32 TSH (34697) Comments: PATIENT WAS FASTINGPERFORMED BY: [address] [id number] TSH 3.890 {uIU/mL} (Normal) Range: 0.450-4.500 :32 MICROALBUMIN: CREATININE RATIO Comments: PATIENT WAS FASTINGPERFORMED BY: [address] [id number] (10576) AND (92624) Microalb/Creat Ratio 2.7 {mg/g_creat} (Normal) Range: 0.0-30.0 Microalbumin, Urine 3.2 ug/mL (Normal) Range: 0.0-17.0 Creatinine, Urine 117.9 mg/dL (Normal) Range: 15.0-278.0 :32 LIPID PANEL (89161) Comments: PATIENT WAS FASTINGPERFORMED BY: [place] 6693270 [facility] [id number] LDL/HDL Ratio 1.8 {ratio_units} (Normal) Range: 0.0-3.2 LDL Cholesterol Calc 115 mg/dL (Abnormal) Range: 0-99 VLDL Cholesterol Aneesh 16 mg/dL (Normal) Range: 5-40 HDL Cholesterol 64 mg/dL (Normal) Comments: According to ATP-III Guidelines, HDL-C >59 mg/dL is considered anegative risk factor for CHD. Triglycerides 79 mg/dL (Normal) Range: 0-149 Cholesterol, Total 195 mg/dL (Normal) Range: 100-199 48-Gks-822874:29 PELVIC (NON ) Radiology See Note Comments: [...] on 08/10/10 1410 Sign by: Lizzy Day 08-Tda-40859:00 TRANSVAGINAL NON- Radiology See Note Comments: ADDENDUM [...] (ACTIVATED PARTIAL Comments: PATIENT NOT FASTINGPERFORMED BY: [place] [id number] [facility] [id number] THROMBOPLASTIN TIME) (86230) aPTT 29 {sec} (Normal) Range: 24-33 Comments: This test has not been validated for monitoring unfractionated heparintherapy. aPTT-based therapeutic ranges for unfractionated heparintherapy have not been established. For general guidelines onHeparin monitoring, refer to the [facility] Directory of Services. 69-Eav-709368:44 PT (PROTHROMBIN TIME) (23958) Comments: PATIENT NOT FASTINGPERFORMED BY: [facility]6370 [facility] [id number] Prothrombin Time 10.5 {sec} (Normal) Range: 8.7-11.5 INR 1.0 (Normal) Range: 0.8-1.2 Comments: Reference interval is for non-anticoagulated patients. . Suggested INR therapeutic range for Vitamin K anta gonist therapy: Standard Dose (moderate intensity therapeutic range): 2.0 - 3.0 Higher intensity therapeutic range 2.5 - 3.5 :44 PROLACTIN (84723) Comments: PATIENT NOT FASTINGPERFORMED BY: [facility] Nwfhzp2597 [facility] [id number] Prolactin 14.9 ng/mL (Normal) Range: 4.8-23.3 :44 METABOLIC PANEL, Comments: PATIENT NOT FASTINGPERFORMED BY: [facility] Ubrdfg7341 [facility] [id number] Information: [id number] COMPREHENSIVE (82510) ALT (SGPT) 22 [iU]/L (Normal) Range: 0-40 [...] 88 mg/dL (Normal) Range: 65-99 :44 TSH (19531) Comments: PATIENT NOT FASTINGPERFORMED BY: [facility]6370 [facility] [id number] TSH 2.410 {uIU/mL} (Normal) Range: 0.450-4.500 :44 CBC (AUTO) (47457) Comments: PATIENT NOT FASTINGPERFORMED BY: [facility]6370 [facility] [id number] MCHC 33.6 g/dL (Normal) Range: 32.0-36.0 Platelets 295 {x10E3/uL} (Normal) Range: 140-415 RDW 14.0 % (Normal) Range: 11.7-15.0 Hematocrit 38.7 % (Normal) Range: 34.0-44.0 MCH 30.1 pg (Normal) Range: 27.0-34.0 MCV 90 fL (Normal) Range: 80-98 Hemoglobin 13.0 g/dL (Normal) Range: 11.5-15.0 RBC 4.32 {x10E6/uL} (Normal) Range: 3.80-5.10 WBC 7.7 {x10E3/uL} (Normal) Range: 4.0-10.5 :23 HgA1C , Office (43764) HgA1C , Office 6.1 % (Normal) Range: 4.6 - 7.1 :23 Blood Glucose , Office (35019) Blood Glucose , Office 100 (Normal) :18 CBC With Differential/Platelet Comments: PATIENT WAS FASTINGPERFORMED BY: [facility]6370 [facility] [id number] Immature Grans (Abs) 0.0 {x10E3/uL} (Normal) Range: [...] 3.80-5.10 WBC 6.1 {x10E3/uL} (Normal) Range: 4.0-10.5 00-Vcw-522530:18 Comp. Metabolic Panel (14) Comments: PATIENT WAS FASTINGPERFORMED BY: LabCoSaint Francis Medical CenterIlsjcx9750 [facility] [id number] ALT (SGPT) 18 [iU]/L (Normal) Range: 0-40 [...] Glucose, Serum 99 mg/dL (Normal) Range: 65-99 92-Wja-760592:18 Lipid Panel With LDL/HDL Comments: PATIENT WAS FASTINGPERFORMED BY: [employer] [facility] [id number] Ratio HDL Cholesterol 53 mg/dL (Normal) Comments: [...] 2.770 {uIU/mL} Comments: PATIENT WAS FASTINGPERFORMED BY: [employer] [facility] [id number] :18 (Normal) Range: 0.450-4.500 :48 HgA1C , Office (22440) HgA1C , Office 6.2 % (Normal) Range: 4.6 - 7.1 :48 Blood Glucose , Office (12666) Blood Glucose , Office 97 (Normal) :46 CBC With Differential/Platelet Comments: PATIENT WAS FASTINGPERFORMED BY: LabCoJoseph [place]ille [id number] [facility] [id number] Baso (Absolute) 0.0 {x10E3/uL} (Normal) Range: 0.0-0.2 [...] Panel (14) Comments: PATIENT WAS FASTINGPERFORMED BY: [employer] Nhwxbe3470 [facility] [id number] A/G Ratio 1.5 (Normal) Range: 1.1-2.5 Albumin, [...] Serum 103 mg/dL (Abnormal) Range: 65-99 If -Burkinan >59 mL/min/1.73 Comments: Note: Persistent reduction for [...] With LDL/HDL Comments: PATIENT WAS FASTINGPERFORMED BY: [facility] [id number] Ratio Cholesterol, Total 179 mg/dL (Normal) Range: [...] Cholesterol Aneesh 14 mg/dL (Normal) Range: 5-40 34-Mop-53234:46 Thyroxine (T4) Free, Direct, S Comments: PATIENT WAS FASTINGPERFORMED BY: LabCoSaint Francis Medical CenterGzcycw4617 [facility] [id number] T4,Free(Direct) 1.13 ng/dL Range: 0.61-1.76 (Normal) 30-Jul-2008 Triiodothyronine,Free,Seru 3.0 pg/mL (Normal) Comments: PATIENT WAS FASTINGPERFORMED BY: LabCoSaint Francis Medical CenterRwaurt2242 [facility] [id number] 9:46 m Range: 2.3-4.2 30-Jul-2008 TSH 2.949 {uIU/mL} Comments: PATIENT WAS FASTINGPERFORMED BY: LabCoSaint Francis Medical CenterTnbgjb4352 [facility] [id number] 9:46 (Normal) Range: 0.450-4.500 82-Vyg-67091:43 Blood Glucose , Office (81715) Comments: done>Wf. Blood Glucose , Office 100 (Normal) 8-Oxi-015687:30 GLUP 105 mg/dL (Normal) Comments: GLU,2HPPG 75gm GLUC PPG GLUP from 1208:B31566F. 7-Fze-154808:24 ESR SED RATE 31 mm/h (Abnormal) Range: 0-30 7-Osj-210228:24 HGB A1C 6.7 % (Abnormal) Range: 4.0-6.3 Comments: The methodology of Hgb A1C has changed to Dubois BehringDimension RXL. No significant changes in patientresults are expected. The reference range remains the same. 7-Muc-462819:03 BREAST UNILATERAL US () Radiology Report See Note (Normal) Comments: Exam Number: [id number] TARGETED RIGHT BREAST ULTRASOUND HISTORYAbnormal mammogram. High [...] Report See Note (Normal) Comments: Exam Number: [id number] TARGETED RIGHT BREAST ULTRASOUND HISTORYAbnormal mammogram. High-resolution [...] werealso examined with computer-aide d detection software ([employer]). Reported By: PHYLLIS HEWITT M.D. 21-Jul-20088:36 [facility] DIGITAL & CAD Radiology Report See Note (Normal) Comments: Exam Number: [id number] MAMMOGRAM, BILATERAL SCREENING DIGITAL AND CAD HISTORYRoutine [...] patient reported a previous study performed at [facility]. That examination was too old and is [...] mammograms werealso examined with computer-aided detection software ([employer] Reported By: PHYLLIS HEWITT M.D. 50-Nzm-29221:26 H pylori, IgM, IgG, IgA Ab Comments: PERFORMED BY: [facility] Center6370 [facility] [id number] H. pylori IgG, Abs <0.9 U/mL (Normal) [...] Diarrhea Unspecified osteoarthritis, unspecified site : Reviewed Family Health Nurse Practitioner Letter Indication: Unspecified osteoarthritis, unspecified site Controlled [...] - Strool Based DNA Test, CRC SCREEN (32544)Indication: Screening for colon cancer On: 45-Kla-889449:51 Request TSH (51117)Indication: Controlled diabetes mellitus type II without complication On: 4-Kfn-302414:53 Request URINALYSIS, W/ MICRO (29858)Indication: Controlled diabetes mellitus type II without complication On: 9-Vft-347714:53 Request MICROALBUMIN: CREATININE RATIO (70027) AND (69651)Indication: Controlled diabetes mellitus type II without complication On: 5-Mol-861970:53 Request METABOLIC PANEL, COMPREHENSIVE (48696)Indication: Controlled diabetes mellitus type II without complication On: 6-Uag-774177:53 Request LIPOPROTEIN, BLD, BY NMR (99163)Indication: Controlled diabetes mellitus type II without complication On: 2-Kfx-523452:53 Request LIPID PANEL (30801)Indication: Controlled diabetes mellitus type II without complication On: 7-Nzx-374768:53 Request CBC W/AUTO DIFF WBC (15896)Indication: Controlled diabetes mellitus type II without complication On: 0-Cif-723499:52 Request HGB A1C (31624)Indication: Controlled diabetes mellitus type II without complication On: 22-Mar-20178:18 Request LIPID PANEL (63869)Indication: Hypercholesteremia On: 22-Mar-20178:17 Request HGB A1C (46492)Indication: Uncontrolled type II diabetes mellitus On: 31-Oct-2016 Request POTASSIUM SERUM (62512)Indication: High potassium On: 1-Hsv-976156:06 Request HELICO PYLORI, STOOL, INFCT ANTIGEN (98272)Indication: NSAID long-term use On: 5-Ymb-431858:05 Request TSH (23268)Indication: Uncontrolled type II diabetes mellitus On: 3-Eka-179994:58 Request TSH (67548)Indication: Pain in unspecified joint On: 58-Xwz-027584:41 Request CBC WITH MANUAL DIFF (99615)Indication: Pain in unspecified joint On: 48-Vbb-407689:41 Request METABOLIC PANEL, COMPREHENSIVE (38207)Indication: Pain in unspecified joint On: 61-Yhh-626030:41 Request URINALYSIS, W/ MICRO (66913)Indication: Benign essential hypertension On: 07-Fbz-146489:06 Request MICROALBUMIN: CREATININE RATIO (02690) AND (86406)Indication: Benign essential hypertension On: 63-Ikh-311284:06 Request URINE CED CULTURE-IDENTIFICATN (67772)Indication: Other abnormal finding of urine On: 60-Faq-490925:56 Request TSH (66223)Indication: Controlled diabetes mellitus type II without complication On: :41 Request URINALYSIS, W/ MICRO (53220)Indication: Benign essential hypertension On: 9-Jsx-312421:41 Request MICROALBUMIN: CREATININE RATIO (28230) AND (44252)Indication: Benign essential hypertension On: :41 Request METABOLIC PANEL, COMPREHENSIVE (16587)Indication: Benign essential hypertension On: :41 Request LIPID PANEL (79900)Indication: Benign essential hypertension On: :41 Request CBC WITH MANUAL DIFF (42072)Indication: Benign essential hypertension On: :41 Request TSH (91537)Indication: Uncontrolled type II diabetes mellitus On: :37 Request METABOLIC PANEL, COMPREHENSIVE (11915)Indication: Uncontrolled type II diabetes mellitus On: :36 Request MICROALBUMIN: CREATININE RATIO (23706) AND (28550)Indication: Uncontrolled type II diabetes mellitus On: :36 Request LIPID PANEL (21388)Indication: Uncontrolled type II diabetes mellitus On: :36 Request CBC WITH MANUAL DIFF (38521)Indication: Uncontrolled type II diabetes mellitus On: :36 Request H. PYLORI BLD TEST UREASE NON-RAD (47897)Indication: Epigastric pain On: 26-Qwz-30744:09 Request Planned Encounters Medical; 3 Month FU - On: 21-Jul-2018 11:45 [facility] Nina Jiménez DO, DO, Kathleen Planned Procedures Bone Density StudyBy: Tino ALONSO, On: 03-Jul-2018 Intent Nina Stover DO MAMMOGRAM BREAST BILATERAL On: 03-Jul-2018 Intent SCREENING DIGITAL (37349)By: Nina Jiménez DO, DO, Kathleen CT SCAN OF ABDOMEN AND PELVIS WITH On: 26-Jul-2017 Intent CONTRAST (88720)By: Nina Jiménez DO, DO, Kathleen ELECTROCARDIOGRAM, COMPLETE (ECG) On: 26-Jul-2017 Intent (95963)By: Nina Jiménez DO Comments: nsr no acute chg Nina Jiménez DO MAMMOGRAM, SCREENING, BOTH BREAST On: 01-Nov-2016 Intent (67596)By: Nina Jiménez DO, DO, Kathleen Echo CompleteBy: Tino ALONSO, On: 18-May-2016 Intent Nina Stover DO Comments: dr mckee Holter Monitor 24 hrsBy: Tino On: 04-May-2016 Intent Nina ALONSO DO, Kathleen ELECTROCARDIOGRAM, COMPLETE (ECG) On: 04-May-2016 Intent (03259)By: Nina Jiménez DO Comments: ? a fib vs atrial tachycardia - df rev as well -- thought maybe some flutter trying to breakthru where we see P waves -- pt asx and hemodynamically stable Nina Jiménez DO MRI ANKLE LEFT WO CONTRAST On: 14-Nov-2015 Intent (40280)By: Nina Jiménez DO, DO, Kathleen Aerosol Treatment (08785)By: Slarb On: 08-Dec-2014 Intent Nette VASQUEZ EKG (22217)By: Tino ALONSO, On: 16-Aug-2014 Intent Nina Stover [...] 08-Jul-2013 Intent (G8553)By: Geovanna Nuñez LPN EKG (55614)By: Trisha Emery MD On: 03-Jul-2013 Intent Comments: see scanned document of test done to see results reviewed today with patient Eprescribed prescriptions On: 08-Apr-2013 Intent (G8553)By: Geovanna Nuñez LPN EKG (87517)By: Tino ALONSO, On: 18-Aug-2012 Intent Nina Stover DO Comments: nsr no acute chg Eprescribed prescriptions On: 18-Aug-2012 Intent (G8553)By: Lidya Stephenson LPN Eprescribed prescriptions On: 08-May-2012 Intent (G8553)By: Nina Jiménez DO, DO, Kathleen Eprescribed prescriptions On: 08-May-2012 Intent (G8553)By: Geovanna Nuñez LPN CT - Neck (IV Contrast Needed)By: On: 28-Oct-2011 Intent Nina Jiménez DO, DO, Comments: follow up original image done at [facility]-- ( mri cervical spine) Nina EKG (79765)By: Tino ALONSO, On: 25-Jul-2011 Intent Nina Stover DO Comments: NSR NO ACUTE CHG Ultrasound - PelvisBy: Tino ALONSO, On: 01-Dec-2010 Intent Nina Stover DO Ultrasound - PelvisBy: Tino ALONSO, On: 02-Aug-2010 Intent Nina Stover DO Comments: may do vaginal probe if need to EKG (08230)By: Tino ALONSO, On: 16-Feb-2010 Intent Nina Stover DO Comments: nsr no acute chnages FLU VAC, SPLIT, >3 YEARS, On: 29-Jul-2008 Intent INTRAMUSC (12026)By: Nina Jiménez DO DONina IMMUNIZ ADMNIN, 1 VAC, SNGL/COMBO On: 29-Jul-2008 Intent (20374)By: Nina Jiménez DO Comments: lot # 37820rpm- 02/15/0989xrfp-OBCIimadx-MVdsur- 0.5ML chenderson tolerated well Tino DO, Nina IMMUNIZ ADMNIN, 1 VAC, SNGL/COMBO On: 29-Jul-2008 Intent (55682)By: Nina Jiménez DO Comments: lot # [id number]- 12/27/20199336wyfs-FXTZssxce-GIwqyz- O.5ML chenderson tolerated well Tino DO, Nina PNEUM VAC ADLT/IMUMNOSPR, On: 29-Jul-2008 Intent SBC/INTRM (66589)By: Nina Jiménez DO, DO, Kathleen EKG (20089)By: Tino , On: 29-Jul-2008 Intent Nina Stover DO MAMMOGRAM, SCREENING, BOTH BREASTS On: 04-Jun-2008 Intent (87372)By: Jojo Santoyo Instructions Name Dates Details Physical [...] Pain,Unspecified Site (789.00) [facility] Payers [facility] HospitalNina Ayon; dia guarantor
--- OUTSIDE RECORDS SUMMARY | 2018-09-13 21:05 | XMS RPT_ITS | Continuity of Care Document ---
:1955 Author Organization [facility] Address [facility] [address] Phone Care Team Providers Name Role Phone [...] MG Oral Tablet 1.5 Tablet qd for 0 days Quantity: 120 {Tablet} Refills: 3 Ordered:20-Nov-2017 Nathaly Jiménez DO, DO, Kathleen Start : 20-Nov-2017 Active Comments:new dose HydroCHLOROthiazide 25 MG Oral [...] 90 days Quantity: 90 {Tablet} Refills: 1 Ordered:15-Jan-2018 Nathaly Jiménez DO, DO, Kathleen Start : 15-Jan-2018 Active Aspirin EC 325 MG Oral Tablet [...] : 08-Jun-2008 Discontinued Comments:This order discontinued per [facility] [address] PENLAC, 8% (External Solution) apply Solution topically [...] VAC ADLT/IMUMNOSPR, Date: 14-Nov-2015 Completed 14-Nov-2015 SBC/INTRM (53206) Comments: Lot:[id number]:04/05/17Dose:0.5mgRoute:imSite:david Boo By:WILLI signed Cardioversion Completed Comments: 2015 Colonoscopy Completed Comments: 07-27-08 - Diverticulitis Diverticulitis (562.11) Completed Comments: Colonoscopy 07-27-08 lt finger sx Completed Comments: 03/01 Date Value Details 22-Apr-2018 12 Lead Electrocardiogram Result: Comments: See Note; NOTES: [facility] Cardiovascular Services [address] [place] [address] 12 Lead EKG 04/19/18 1456 MR#: [id number] Acct: [id number] Name: NINA AYON ep #: [id number] : 1955 62 From: Bright Peng MD [...] Borderline ECG Confirmed by BRIGHT PENG ([id number]), proposal editor OBDULIO PURDY ([id number]) on 04/22/2018 1:27:45 PM Referred By: JOHN Confirmed By: BRIGHT PENG 04/22/18 1327 Date Bright Peng MD CC: Nina Jiménez DO; Cedric Sylvester MD Signed 19-Apr-2018 Emergency Department Summary Result: Comments: See Note; NOTES: [facility] Medical Records Department [address] [place] [address] Emergency Department Summary 04/19/18 1653 MR#: [id number] Acct: [id number] Name: NINA AYON Rep #: [id number] : 1955 62 From: Cedric Sylvester MD [...] pleuritic component This note was generated with TransMedics dictation software. It may contain incorrect words, [...] your Primary Care Provider. Call [facility] ([phone]) or report to the closest Emergency Room. Call 911 if necessary. 04/19/18 1701 <Electronically signed by Cedric Sylvester MD> Date Cedric Sylvester MD Cosig ner Signature (If Indicated): Date CC: Nina Jiménez DO 19-Apr-2018 Chest 1 View (Portable) Result: Comments: See Note; NOTES: [facility] Imaging Services [address] [place] [address] Chest 1 View (Portable) MR#: [id number] Acct: [id number] Name: NINA AYON Rep #: [id number] : 1955 F 62 From: Dolly Hardy MD PCP: Nina Jiménez DO Status: PRE ER Study: Chest 1 View (Portable) Date of Exam: 04/19/18 Exam# [id number] Ordering Dr: Cedric Sylvester MD STUDY: X-RAY [...] CC: Nina Jiménez DO; Cedric Sylvester MD Therapy Site Coordinator: Signed 10-Feb-2018 Cardiology Visit Report Result: Comments: See Note; NOTES: [facility] [address] [place] [address] OFFICE VISIT Date of Service: 02/10/18 MR#: [id number] Acct: [id number] Name: NINA AYON Rep #: [id number] : 1955 Provider: KATHY Snider Age/Sex: 62/F [place] [facility] Status: Signed HPI HPI Details: [...] insufficiency (Chronic) Paroxysmal atr ial fibrillation (Acute) nursing home (current) use of anticoagulants (Chronic) GERD (gastroesophageal [...] transthoracic echocardiogram on 11/07/2016 at [facility]. The results are as noted below. [...] THIS IS A24 HOUR HOLTER MONITOR IN [facility]. MINIMUM HEART RATE WAS 92 BPM [...] We will continue to monitor this. 7. 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 Z79.01 Plan If [...] (valve) insufficiency I36.1 Paroxysmal atrial fibrillation I48.0 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 Z79.01 Anxiety F41.9 Coding Level of Care Code Off v is,est,level 3 Diagnoses Abnormal stress test R94.39 Essential hypertension I10 Hyperlipidemia, unspecified hyperlipidemia type E78.5 Nonrheumatic mitral valve regurgitation I34.0 Nonrheumatic tricuspi d (valve) insufficiency I36.1 Paroxysmal atrial fibrillation I48.0 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 Z79.01 Anxiety F41.9 02/10/18 1506 <Electronically signed by Dusty MORALES& #62; Date Dusty MORALES Cosigner Signature: Date (if applicable) CC: Nina Jiménez DO 10-Feb-2018 Chest PA and Lateral Result: Comments: See Note; NOTES: [facility] Imaging Services [address] [place] [address] Chest PA and Lateral MR#: [id number] Acct: [id number] Name: GABOJINNINA B Rep #: [id number] : 1955 F 62 From: Leslye Sue MD PCP: Nina Jiménez DO Status: REG CLI Study: Chest PA and Lateral Date of Exam: 02/10/18 Exam# [id number] Ordering Dr: Haile Mckee MD STUDY: X-RA [...] CC: Nina Jiménez DO; Haile Mckee MD Therapy Site Coordinator: Signed 04-Feb-2018 Stress Report Result: Comments: See Note; NOTES: [facility] Cardiovascular Services [address] [place] [place] [address] MR#: [id number] Acct: [id number] Name: GABONINA B Rep #: [id number] : 62 From: Haile Mckee MD Primary [...] and occasional PVCs during recovery. The functional [facility] was considered average. There was no [...] %. Thi s note was generated with Fantooation software. It may contain incorrect words, spelling, and punctuation that were not noted in checking the note before signing. 02/04/18 0797 <Randy person signed by Haile Mckee MD> Date Haile Mckee MD CC: Nina Jiménez DO; Haile Mckee MD Date Dictated: 02/04/18 1354 Date Transcribed: 02/04/181353 Therapy Site Coordinator: PM Signed 09-Jan-2018 Cardiology Visit Report Result: Comments: See Note; NOTES: [facility] [address] [place] [address] OFFICE VISIT Date of Service: 01/09/18 MR#: [id number] Acct: [id number] Name: NINA AYON Rep #: [id number] : 1955 Provider: Haile Mckee MD Age/Sex: 62/F [place] [facility] Status: Signed HPI HPI Details: [...] (valve) insufficiency (Chronic) Paroxysmal atrial fibrillation (Acute) lobsterman (current) use of a nticoagulants (Chronic) GERD [...] transthoracic echocardiogram on 11/07/2016 at [facility]. The results are as noted below. [...] management and follow- up. Orders Orders: 7. lobsterman current use of anticoagulant Z79.01 Plan Again [...] Essential hypertension I10 Hypertension type: essential hypertension lobsterman current use of anticoagulant Z79.01 Coding Level of Care Code Off vis,est,level 4 Diagnoses Chest pain, unspecified type R07.9 Chest pain type: unspecified Paroxysmal atrial fibrillation I48.0 Nonrheumatic mitral valve insufficiency I34.0 Non-rheumatic tricuspid valve insufficiency I36.1 Hyper lipidemia, unspecified hyperlipidemia type E78.5 Hyperlipidemia type: unspecified Essential hypertension I10 Hypertension type: essential hypertension nursing home current use of anticoagulant Z79.01 1103 <Electronically signed by Haile Mckee MD> Date Haile Mckee MD Cosigner Signature: Date (if applicable) CC: Nina Jiménez DO 09-Jan-2018 12 Lead EKG performed by [facility] Result: Comments: See Note; NOTES: [facility] [address] [place] [address] 12 Lead EKG performed by [facility] 01/09/185 MR#: [id number] Acct: [id number] Name: NINA AYON Rep #: [id number] : 1955 62 From: Haile Mckee MD Attending Dr: Haile Mckee MD Status: DEP [facility] Ordering Dr: Haile Mckee MD Date: 01/09/18 Location: [facility] Sex: F C Admitted : BMS/12 Lead EKG performed by [facility] ECG Report Interpretation Sinus Rhythm - occasional ectopic ventricular beat Electronically signed on 01/09/2018 at 12:2 4 by Haile Mckee 01/09/181226 Date Haile Mckee MD CC: Nina Jiménez DO Date Dictated: 01/09/181024 Date Transcribed: 01/09/181024 Therapy Site Coordinator: PM Signed 09-Aug-2017 Abdomen/Pelvis WITH Contrast Result: Comments: See Note; NOTES: [facility] Imaging Services [address] [place] [address] Abdomen/Pelvis WITH Contrast MR#: [id number] Acct: [id number] Name: NINA AYON Rep # : [id number] : 1955 F 62 From: Ganga Argueta PCP: Nina Jiménez DO Status: REG CLI Study: Abdomen/Pelvis WITH Contrast Date of Exam: 08/09/17 Exam# [id number] Ordering Dr: Nina Jiménez DO STUDY: CT [...] of the lumbar spine. ORDE R #: [id number] CT/Abdomen/Pelvis WITH Contrast IMPRESSION: No acute findings in the abdomen or pelvis. Normal appendix. No hydronephrosis or urinary tract stones. No evidence of bowel obstruction. M ild sigmoid colon diverticulosis. Moderate size hiatal hernia. Electronically Signed: Ganga Argueta MD at 8:11 EST , Service support , CC: Nina Jiménez DO Therapy Site Coordinator: Signed 07-Nov-2016 Echocardiogram Complete Result: Comments: See Note; NOTES: [facility] Cardiovascular Services [address] [place] [address] Echo Complete 11/07/16 1027 MR#: [id number] Acct: [id number] Name: NINA AYON Rep #: [id number] : 1955 61 From: Haile Mckee MD Attending Dr: Sanam Coronel NP Status: REG CLI Ordering Dr: Sanam Coronel E BEER MAKER-C Date: 11/07/16 Location: [facility] Sex: F C Admitted: Daksha son For Study: Afib Procedure This was [...] Date Haile Mckee MD CC: Sanam Coronel BEER MAKER; Nina Jiménez DO Date Dictated: 11/07/16 1027 Date Transcribed: 11/07/161733 Therapy Site Coordinator: Signed 02-Nov-2016 SCREENING MAMM (CAD), BILAT Result: Comments: See Note; NOTES: [facility] Imaging Services [address] [facility] [place] [address] Verdana 4d SCREENING MAMM (CAD), BILAT MR#: [id number] Acct: [id number] Name: DARÍO AYON Rep #: [id number] : 1955 F 61 From: Jaya Mac MD PCP: Nina Jiménez DO Status: REG I Study: SCREENING MAMM (CAD), BILAT Date of Exam: 11/02/16 Exam# [id number] Ordering Dr: Nina Kingsley DO MAMMOGRAPHY - [...] will be sent to the patient by [facility] facility within 30 days. Approximately 10% of breast cancers are not detected by mammography. A normal mammogram should not delay biopsy of a clinically suspicious abnormality. [id number] Electronicall y Signed: Jaya Mac MD at 8:27 EDT Tel [phone], Service support [phone], CC: Nina Jiménez DO Therapy Site Coordinator: Signed 04-Jul-2016 Operative Report Result: Comments: See Note; NOTES: [facility] Medical Records Department [address] [place] [address] Operative Report MR#: [id number] Acct: [id number] Name: NINA AYON Rep #: [id number] : 1955 61 From: Juan Covington MD PCP: Nina Jiménez DO Status: [facility] DATE OF SERVICE: 07/03/2016 DATE OF SERVICE: [...] MD Primary Care Physician T: NTS JOB: [id number] 07/04/16 0615 <Electronically signed by Juan Covington MD> Date Juan Covington MD Cosigner Signature (If Indicated): Date CC: Juan Covington MD; Nina Jiménez DO; Haile Mckee MD Date Dictated: 07/03/16 1104 Date Transcribed: 07/03/161103 Therapy Site Coordinator: Signed 03-Jul-2016 Operative Report Result: Comments: See Note; NOTES: [facility] Medical Records Department [address] [place] [address] Operative Report 07/03/16 1642 MR#: [id number] Acct: [id number] Name: DARÍO AYON Rep #: [id number] : 1955 61 From: Haile Mckee MD PCP: Nina Jiménez DO Status: [facility] Y Location: [facility] Problem List (1) Atrial fibrillation Status: Acute [...] complica tions This note was generated with TransMedics dictation software. It may contain incorrect words, spelling, and punctuation that were not noted in checking the note before signing. 07/03/16 1644 &#6 0;Electronically signed by Haile Mckee MD> Date Haile Mckee MD CC: Nina Jiménez DO; Haile Mckee MD Signed 03-Jul-2016 Echo Transesophageal (KATHY) Result: Comments: See Note; NOTES: [facility] Cardiovascular Services [address] [place] [address] Echo Transesophageal (KATHY) 07/03/16 0947 MR#: [id number] Acct: [id number] Name: TESSA AYALANINA B Rep #: [id number] : 1955 61 From: Haile Mckee MD Attending Dr: Haile Mckee MD Status: [facility] Ordering Dr: Haile Mckee MD Date: 07/03/16 Location: [facility] Sex: F C Admitted: Reason For Study: AFIB Medication KATHY probe passed with minimal difficulty. Cetacaine Topical [place] given X3 orally. Versed 2 mg given [...] Dictated: 07/03/16 0947 Date Transcribed: 07/03/16 1436 Therapy Site Coordinator: Signed 28-Jun-2016 Chest PA and Lateral Result: Comments: See Note; NOTES: [facility] Imaging Services [address] [place] [address] Verdana 4d Chest PA and Lateral MR#: [id number] Acct: [id number] Name: NINA AYON #: [id number] : 1955 F 61 From: Johnathon Meza PCP: Nina Jiménez DO Status: PRE [facility] Study: Chest PA and Lateral Date of Exam: 06/28/16 Exam# [id number] Ordering Dr: Haile Mckee MD STUDY: X-RAY [...] at 6:38 EST Tel , Service support [phone], CC: Nina Jiménez DO; Haile Mckee MD Therapy Site Coordinator: Signed 19-Jun-2016 Nuclear Stress Test - Chemical Result: Comments: See Note; NOTES: [facility] Imaging Services [address] [place] [address] Candie 4d Nuclear Stress Test - Chemical MR#: [id number] Acct: [id number] Name: Ashlee AYON Rep #: [id number] : 1955 61 From: Haile Mckee MD [...] 60%. Haile Mckee MD T: NTS JOB: [id number] 06/19/161936 <Electronically signed by Haile Mckee MD> Date Haile Mckee MD CC: Nina Diop on DO; Haile Mckee MD Date Dictated: 06/19/161406 Date Transcribed: 06/19/161406 Therapy Site Coordinator: Signed 08-Jun-2016 Echocardiogram Complete Result: Comments: See Note; NOTES: [facility] Cardiovascular Services [address] [facility] [place] [address] Echo Complete 06/08/16 1319 MR#: [id number] Acct: [id number] Name: NINA AYON Rep #: [id number] : 1955 61 From: Haile Mckee MD Attending Dr: Nina Jiménez DO Status: REG CLI Ordering Dr: Nina Jiménez DO Date: 06/08/16 Location: [facility] Sex: F C Admitted: Reas on [...] Date Dictated: 06/08/16 1319 Date Transcribed: 06/08/161731 Therapy Site Coordinator: Signed 06-Jul-2014 Hepatobilliary Imaging Result: Comments: See Note; NOTES: [facility] Imaging Services [address] [place] [address] Nuclear Medicine Report MR#: [id number] Acct: [id number] Name: NINA AYON Rep #: [id number] : 1955 F 59 From: Steven Cunha DO PCP: Nina Jiménez DO Status: REG CLI Study: Hepatobilliary Imaging Date of Exam: 07/06/14 Exam# [id number] Ordering Dr: Kacey Patton CL INICAL: 59-year-old [...] Cunha DO at 8:3 5 EST Tel [phone], Service support [phone], CC: Kacey Jiménez DO Therapy Site Coordinator: Signed 02-Jul-2014 Small Bowel Series Only Result: Comments: See Note; NOTES: [facility] Imaging Services [address] [place] [address] Radiology Report MR#: [id number] Acct: [id number] Name: NINA AYON Rep #: [id number] : 1955 F 59 From: Jaya Mac MD PCP: Nina Jiménez DO Status: REG CLI Study: Small Bowel Series Only Date of Exam: 07/02/14 Exam# [id number] Ordering Dr: Kacey Patton CEDURE: SMALL BOWEL [...] Mac MD 11/27/13 at 11:02 EST Tel [phone], Service support [phone], RAD/Small Bowel Series Only IMPRESSION: Normal small bowel series. Electronically Signed: Jaya Mac MD at 11:02 EST Tel [phone], Service support [phone], CC: Kacey Patton; Nina Jiménez DO Therapy Site Coordinator: Signed 23-Jun-2014 Gallbladder Result: Comments: See Note; NOTES: [facility] Imaging Services [address] [place] [address] Ultrasound Report MR#: [id number] Acct: [id number] Name: NINA AYON Rep #: [id number] : 1955 F 59 From: Jaya Mac MD PCP: Nina Jiménez DO Status: REG CLI Study: Gallbladder Date of Exam: 06/23/14 Exam# [id number] Ordering Dr: Kacey Patton STUDY: ABDOMIN AL [...] Jaya Mac MD at 11:48 EST Tel [phone], Service support [phone], CC: Kacey Patton; Nina Jiménez DO Therapy Site Coordinator: Signed Immunization Name Dates Details Influenza (3 years and up) on: 29-Jul-2008 Pneumococcal (2 years and up) on: 14-Nov-2015 Comments: Site: Deltoid (Left) Lot #: [id number] Pneumococcal (2 years and up) on: 29-Jul-2008 Social History Name Dates Details Tobacco use: Never smoker. Status: Active Smoking Status Name Dates Details Never smoker Vital Signs Date Test Result Details 32-Qge-199635:41 Temperature 97.9 f Comments: Method: Temporal Pulse [...] kg/m2 Body Surface Area Calculated 2.19 m2 2-Gjx-818665:32 Temperature 97.6 f Comments: Method: Temporal Pulse [...] kg/m2 Body Surface Area Calculated 2.22 m2 32-Oat-825704:57 Pulse 68 /min Comments: Pattern: Regular Respiration [...] Value Details :39 Lipase Comments: [facility] [address] [place], [place], [address] LIPASE 127 U/L (Normal) Range: 73-393 7-Eek-427836:39 Liver Profile Comments: [facility] [address] [place], [place], [address] D BILI 0.07 mg/dL (Normal) Range: 0.00-0.30 T BILI 0.30 mg/dL (Normal) Range: 0.20-1.00 ALT 37 U/L (Normal) Range: 13-56 ALK P 88 U/L (Normal) Range: 45-117 AST 30 U/L (Normal) Range: 15-37 GLOB 3.6 g/dL (Normal) Range: 2.2-4.2 ALB 3.9 g/dL (Normal) Range: 3.2-5.0 T PROT 7.5 g/dL (Normal) Range: 6.4-8.2 :10 Basic Metabolic Profile (BMP) Comments: [facility] [address] [facility] [place], [place], [address] GAP 9 (Normal) Range: 5-15 CO2 26.0 [...] A.D.A. criteria.Please note revised GLUCOSE reference range niotbubmk74/02/2018. 2-Luh-867626:10 CBC W/Diff, Automated Comments: [facility] [address] [place], [place], [address] Absolute Lymph 1.31 {X10_3/ul} (Normal) Range: 0.83-4.51 [...] :10 Prothrombin Time w/INR Comments: [facility] [address] [place], [place], [address] INR 1.5 (Normal) PROTIME 17.9 s (Abnormal) Range: 11.7-14.9 4-Twq-723860:10 Troponin-I Comments: [facility] [address] [facility] [place], [address] TROPONIN-I < 0.015 ng/mL (Normal) Comments: TROPONIN-I EXPECTED VALUES <0.045 Negative 0.045 - 0.590 Consistent with Cardiac Damage > OR = 0.600 Critical Value Not every elevated troponin is indicative of [place]. T hesevalues should be used with clinical judgement in examiningthe patient's clinical picture for diagnosis. To establisha diagnosis of [place] versus myocardial injury, there must be ademonstrated rise and/ or fall in the troponin values, inaddition to ischemic symptoms, EKG changes, new regionalwall motion abnormality, and/or angiographical evidence. PLEASE NOTE: REFERENCE RANGES EDITED 12/30/1710-Feb-201843-Wxn-774215:44 Basic Metabolic Profile (BMP) Comments: [facility] [address] [place], [place], [address] GAP 8 (Normal) Range: 5-15 CO2 28.0 [...] A.D.A. criteria.Please note revised GLUCOSE reference range ijhvldgue00/02/2018. 51-Dww-553591:44 CBC-Complete Blood Cnt No Diff Comments: [facility] [address] [place], [place], [address](674) MPV 11.4 fL (Normal) Range: 6.2-12.0 PLT [...] 4.2-5.4 WBC 6.2 K/mm3 (Normal) Range: 4.4-11.0 67-Fyc-523547:44 Partial Thromboplast Time Comments: [facility] [address] [place], [place], [address] PTT 37.7 s (Abnormal) Range: 24.1-36.2 :44 Prothrombin Time w/INR Comments: [facility] [address] [place], [place], [address] INR 1.8 (Normal) PROTIME 21.0 s (Abnormal) Range: 11.7-14.9 3-Wwd-754921:37 Urinalysis, Office (18179) UA - LEUKOCYTE ESTERASE Moderate (Normal) UA - NITRITE Negative (Normal) URINE UROBILINGN RUBEN TIMED 2 mg/dL (Normal) UA - PROTEIN Negative mg/dL (Normal) UA - PH 7.0 (Normal) UA - BLOOD Hemolyzed Trace (Normal) UA - SPECIFIC GRAVITY 1.010 (Normal) UA - KETONES Negative mg/dL (Normal) UA - BILIRUBIN Negative (Normal) UA - GLUCOSE Negative (Normal) 8-Qnf-633814:33 Blood Glucose , Office (89047) Blood Glucose , Office 131 (Normal) 1-Seg-855963:33 HgA1C , Office (88883) HgA1C , Office 5.9 % (Normal) Range: 4.6 - 7.1 :22 H-Pylori IGA,IGG,IGM (81400) Comments: PATIENT NOT FASTINGPERFORMED BY: ADI LabCoSt. [facility] Medical CenterYiugxu4449 [facility] [id number] H pylori, IgM Abs <9.0 {units} (Normal) Range: 0.0-8.9 Comments: Negative <9.0 Equivocal 9.0 - 11.0 Positive >11.0 .This test was developed and its performance characteristicsdetermined by [facility]. It has not been cleared or approvedby the Food and Drug Administration. H. pylori, IgA Abs <9.0 {units} (Normal) Range: 0.0-8.9 Comments: Negative <9.0 Equivocal 9.0 - 11.0 Positive >11.0 H. pylori, IgG Abs <0.9 U/mL (Normal) Range: 0.0-0.8 Comments: Negative <0.9 Indeterminate 0.9 - 1.0 Positive >1.0 Effective August the reference interval will be changing to: Negative <0.8 Equivocal 0.8 Positive >0.8 5-Iqf-542705:19 Microscopic Examination Comments: PATIENT WAS FASTINGPERFORMED BY: ADI Blink BookingNorthern Navajo Medical CenterGgrjap4233 [facility] [id number] Bacteria Few (Normal) Mucus Threads Present (Normal) Epithelial Cells (non renal) >10 {/hpf} (Abnormal) Range: 0 - 10 RBC 3-10 {/hpf} (Abnormal) Range: 0 - 2 WBC >30 {/hpf} (Abnormal) Range: 0 - 5 5-Izy-371186:21 Basic Metabolic Profile (BMP) Comments: Order Date: 05/08/17Order Info: [id number] - *BMPComments: Reason:[facility] [address] [place], [place], [address] GAP 5 (Normal) Range: 5-15 CO2 31.0 [...] 7-18 GLU 93 mg/dL (Normal) Range: 70-110 94-Peb-683050:34 HGB A1C (77682) Comments: PATIENT WAS FASTINGPERFORMED BY: ADI [facility]6370 [facility] [id number] Hemoglobin A1c 6.5 % (Abnormal) Range: 4.8-5.6 Comments: . Pre-diabetes: 5.7 - 6.4 Diabetes: >6.4 Glycemic control for adults with diabetes: <7.0 :34 MICROALBUMIN: CREATININE RATIO Comments: PATIENT WAS FASTINGPERFORMED BY: Blink BookingNorthern Navajo Medical CenterXgdoqh8002 [facility] [id number] (55838) AND (88602) Microalb/Creat Ratio <13.7 {mg/g_creat} (Normal) Range: 0.0-30.0 Microalbumin, Urine <3.0 ug/mL (Normal) Creatinine, Urine 21.9 mg/dL (Normal) :34 TSH (30572) Comments: PATIENT WAS FASTINGPERFORMED BY: Blink BookingNorthern Navajo Medical CenterHkwvdq8079 [facility] [id number] TSH 2.420 {uIU/mL} (Normal) Range: 0.450-4.500 :34 Lipid Panel (49188) Comments: PATIENT WAS FASTINGPERFORMED BY: Blink BookingNorthern Navajo Medical CenterJagjce4114 [facility] [id number] LDL/HDL Ratio 1.9 {ratio_units} (Normal) Range: 0.0-3.2 Comments: LDL/HDL Ratio Men Women 1/2 Avg.Risk 1.0 1.5 Av g.Risk 3.6 3.2 2X Avg.Risk 6.2 5.0 3X Avg.Risk 8.0 6.1 LDL Cholesterol Calc 132 mg/dL (Abnormal) Range: 0-99 VLDL Cholesterol Aneesh 15 mg/dL (Normal) Range: 5-40 HDL Cholesterol 71 mg/dL (Normal) Triglycerides 73 mg/dL (Normal) Range: 0-149 Cholesterol, Total 218 mg/dL (Abnormal) Range: 100-199 64-Ofj-452818:34 Metabolic Panel, Comprehensive Comments: PATIENT WAS FASTINGPERFORMED BY: Blink BookingSt. Joseph's Regional Medical CenterNwagdb4004 [facility] [id number] (26096) ALT (SGPT) 27 [iU]/L (Normal) Range: 0-32 [...] Glucose, Serum 96 mg/dL (Normal) Range: 65-99 99-Wto-187297:34 CBC WITH MANUAL DIFF (97683) Comments: PATIENT WAS FASTINGPERFORMED BY: LabCoSt. Joseph's Regional Medical CenterAmpcoc8008 [facility] [id number] Immature Grans (Abs) 0.0 {x10E3/uL} (Normal) Range: [...] 7.4 {x10E3/uL} (Normal) Range: 3.4-10.8 :19 TSH (32479) Comments: PATIENT WAS FASTINGPERFORMED BY: [facility]Former[facility] [id number] TSH 2.050 {uIU/mL} (Normal) Range: 0.450-4.500 :19 URINALYSIS, W/ MICRO (07147) Comments: PATIENT WAS FASTINGPERFORMED BY: [facility]Former[facility]oir [facility] [id number] Microscopic Examination See below: (Normal) Comments: Microscopic was indicated and was performed. Nitrite, Urine Negative (Normal) Urobilinogen,Semi-Qn 0.2 mg/dL (Normal) Range: 0.2-1.0 Bilirubin Negative (Normal) Occult Blood 1+ (Abnormal) Ketones Negative (Normal) Glucose Negative (Normal) Protein Negative (Normal) WBC Esterase 3+ (Abnormal) Appearance Cloudy (Abnormal) Urine-Color Yellow (Normal) pH 7.0 (Normal) Range: 5.0-7.5 Specific [place] 1.015 (Normal) Range: 1.005-1.030 :19 MICROALBUMIN: CREATININE RATIO Comments: PATIENT WAS FASTINGPERFORMED BY: [employer] [facility] [id number] (52660) AND (41195) Microalb/Creat Ratio 9.1 {mg/g_creat} (Normal) Range: 0.0-30.0 Microalbumin, Urine 7.4 ug/mL (Normal) Creatinine, Urine 81.3 mg/dL (Normal) :19 METABOLIC PANEL, COMPREHENSIVE Comments: PATIENT WAS FASTINGPERFORMED BY: Blink Book[employer] Iotgbf4595 [facility] [id number] (46847) ALT (SGPT) 43 [iU]/L (Abnormal) Range: 0-32 [...] Glucose, Serum 104 mg/dL (Abnormal) Range: 65-99 2-Vnu-589608:19 LIPID PANEL (84314) Comments: PATIENT WAS FASTINGPERFORMED BY: Youxiduo6370 [facility] [id number] LDL/HDL Ratio 2.7 {ratio_units} (Normal) Range: 0.0-3.2 Comments: LDL/HDL Ratio Men Women 1/2 Avg.Risk 1.0 1.5 Av g.Risk 3.6 3.2 2X Avg.Risk 6.2 5.0 3X Avg.Risk 8.0 6.1 LDL Cholesterol Calc 145 mg/dL (Abnormal) Range: 0-99 VLDL Cholesterol Aneesh 18 mg/dL (Normal) Range: 5-40 HDL Cholesterol 53 mg/dL (Normal) Triglycerides 89 mg/dL (Normal) Range: 0-149 Cholesterol, Total 216 mg/dL (Abnormal) Range: 100-199 1-Yqw-267452:19 CBC W/AUTO DIFF WBC (70848) Comments: PATIENT WAS FASTINGPERFORMED BY: LabCoSt. Joseph's Regional Medical CenterKqmlvf9384 [facility] [id number] Immature Grans (Abs) 0.0 {x10E3/uL} (Normal) Range: [...] {x10E3/uL} (Normal) Range: 3.4-10.8 :19 HGB A1C (35240) Comments: PATIENT WAS FASTINGPERFORMED BY: LabCoSt. Joseph's Regional Medical CenterKexjvx4276 [facility] [id number] Hemoglobin A1c 6.2 % (Abnormal) Range: 4.8-5.6 Comments: . Pre-diabetes: 5.7 - 6.4 Diabetes: >6.4 Glycemic control for adults with diabetes: <7.0 :19 HGB A1C (60101) Comments: PATIENT NOT FASTINGPERFORMED BY: LabCoSt. Joseph's Regional Medical CenterJcjmyu7320 [facility] [id number] Hemoglobin A1c 6.2 % (Abnormal) Range: 4.8-5.6 Comments: . Pre-diabetes: 5.7 - 6.4 Diabetes: >6.4 Glycemic control for adults with diabetes: <7.0 :33 Basic Metabolic Profile (BMP) Comments: Order Date: 06/21/16Order Info: [id number] - *BMPOrder Date: 06/21/16Order Info: [id number] - *BMPComments: Reason:[facility] Qddxwotllw58[address] [place], [address] GAP 8 (Normal) Range: 5-15 CO2 27.0 [...] Microscopic Examination Comments: PATIENT NOT FASTINGPERFORMED BY: Exelis Papirus [facility] [id number] Bacteria None seen (Normal) Mucus Threads Present (Normal) Epithelial Cells (non renal) 0-10 {/hpf} (Normal) Range: 0 - 10 RBC 0-2 {/hpf} (Normal) Range: 0 - 2 WBC 0-5 {/hpf} (Normal) Range: 0 - 5 :37 URINALYSIS, W/ MICRO (86121) Comments: PATIENT NOT FASTINGPERFORMED BY: Exelis Papirus [facility] [id number] Microscopic Examination See below: (Normal) Comments: Microscopic was indicated and was performed. Nitrite, Urine Negative (Normal) Urobilinogen,Semi-Qn 0.2 mg/dL (Normal) Range: 0.2-1.0 Bilirubin Negative (Normal) Occult Blood Negative (Normal) Ketones Negative (Normal) Glucose Negative (Normal) Protein Negative (Normal) WBC Esterase 2+ (Abnormal) Appearance Clear (Normal) Urine-Color Yellow (Normal) pH 8.0 (Abnormal) Range: 5.0-7.5 Specific [place] 1.011 (Normal) Range: 1.005-1.030 :37 TSH (43211) Comments: PATIENT NOT FASTINGPERFORMED BY: Blink Booking Vvpwxo7392 [facility] [id number] TSH 2.050 {uIU/mL} (Normal) Range: 0.450-4.500 :37 METABOLIC PANEL, COMPREHENSIVE Comments: PATIENT NOT FASTINGPERFORMED BY: Exelis Suxvix9226 [facility] [id number] (86661) ALT (SGPT) 31 [iU]/L (Normal) Range: 0-32 [...] Glucose, Serum 96 mg/dL (Normal) Range: 65-99 75-Sbj-756575:37 CBC W/AUTO DIFF WBC (81435) Comments: PATIENT NOT FASTINGPERFORMED BY: LabCoSt. Joseph's Regional Medical CenterOmuyvj4264 [facility] [id number] Immature Grans (Abs) 0.0 {x10E3/uL} (Normal) Range: [...] (Normal) Range: 3.4-10.8 :08 HgA1C , Office (13882) HgA1C , Office 5.9 % (Normal) Range: 4.6 - 7.1 :49 HGB A1C (69198) Comments: PATIENT WAS FASTINGPERFORMED BY: Blink BookingSt. Joseph's Regional Medical CenterLcalit6538 [facility] [id number] Hemoglobin A1c 6.1 % (Abnormal) Range: 4.8-5.6 Comments: . Pre-diabetes: 5.7 - 6.4 Diabetes: >6.4 Glycemic control for adults with diabetes: <7.0 :49 TSH (22128) Comments: PATIENT WAS FASTINGPERFORMED BY: Blink BookingSt. Joseph's Regional Medical CenterUzouwm4266 [facility] [id number] TSH 2.280 {uIU/mL} (Normal) Range: 0.450-4.500 :49 MICROALBUMIN: CREATININE RATIO Comments: PATIENT WAS FASTINGPERFORMED BY: Blink BookingSt. Joseph's Regional Medical CenterGbqvwa8544 [facility] [id number] (43949) AND (86283) Microalb/Creat Ratio <3.5 {mg/g_creat} (Normal) Range: 0.0-30.0 Microalbumin, Urine <3.0 ug/mL (Normal) Creatinine, Urine 85.4 mg/dL (Normal) 5-Uxh-968189:49 METABOLIC PANEL, COMPREHENSIVE Comments: PATIENT WAS FASTINGPERFORMED BY: LabCoSt. Joseph's Regional Medical CenterDeonvi1695 [facility] [id number] (01822) ALT (SGPT) 19 [iU]/L (Normal) Range: 0-32 [...] Glucose, Serum 101 mg/dL (Abnormal) Range: 65-99 9-Vxg-711609:49 LIPID PANEL (94847) Comments: PATIENT WAS FASTINGPERFORMED BY: Blink BookingSt. Joseph's Regional Medical CenterLzlgdj8445 [facility] [id number] LDL/HDL Ratio 2.3 {ratio_units} (Normal) Range: 0.0-3.2 Comments: LDL/HDL Ratio Men Women 1/2 Avg.Risk 1.0 1.5 Av g.Risk 3.6 3.2 2X Avg.Risk 6.2 5.0 3X Avg.Risk 8.0 6.1 LDL Cholesterol Calc 132 mg/dL (Abnormal) Range: 0-99 VLDL Cholesterol Aneesh 10 mg/dL (Normal) Range: 5-40 HDL Cholesterol 58 mg/dL (Normal) Triglycerides 48 mg/dL (Normal) Range: 0-149 Cholesterol, Total 200 mg/dL (Abnormal) Range: 100-199 5-Cas-311984:49 CBC W/AUTO DIFF WBC (04753) Comments: PATIENT WAS FASTINGPERFORMED BY: LabCrowdTogetherSt. Joseph's Regional Medical CenterYzteuu4777 [facility] [id number]; will review at 08/07 appt Immature Grans [...] Microscopic Examination Comments: PATIENT WAS FASTINGPERFORMED BY: Blink BookingSt. Joseph's Regional Medical CenterGgcnzn3512 [facility] [id number] Bacteria Few (Normal) Mucus Threads Present (Normal) Epithelial Cells (non renal) 0-10 {/hpf} (Normal) Range: 0 - 10 RBC 0-2 {/hpf} (Normal) Range: 0 - 2 WBC 0-5 {/hpf} (Normal) Range: 0 - 5 :48 Blood Glucose , Office (96817) Blood Glucose , Office 75 (Normal) :48 HgA1C , Office (81255) HgA1C , Office 6.0 % (Normal) Range: 4.6 - 7.1 :18 TSH (35747) Comments: PATIENT WAS FASTINGPERFORMED BY: Blink BookingSt. Joseph's Regional Medical CenterTgjutp9656 [facility] [id number] TSH 1.930 {uIU/mL} (Normal) Range: 0.450-4.500 :18 URINALYSIS, W/ MICRO (95030) Comments: PATIENT WAS FASTINGPERFORMED BY: Blink BookingSt. Joseph's Regional Medical CenterNmlbsh3764 [facility] [id number] Microscopic Examination See below: (Normal) Comments: Microscopic was indicated and was performed. Nitrite, Urine Negative (Normal) Urobilinogen,Semi-Qn 0.2 mg/dL (Normal) Range: 0.2-1.0 Bilirubin Negative (Normal) Occult Blood Negative (Normal) Ketones Negative (Normal) Glucose Negative (Normal) Protein Negative (Normal) WBC Esterase 1+ (Abnormal) Appearance Clear (Normal) Urine-Color Yellow (Normal) pH 7.5 (Normal) Range: 5.0-7.5 Specific [place] 1.023 (Normal) Range: 1.005-1.030 :18 MICROALBUMIN: CREATININE RATIO Comments: PATIENT WAS FASTINGPERFORMED BY: Blink BookingSt. Joseph's Regional Medical CenterKmyjen1622 [facility] [id number] (30647) AND (77927) Microalb/Creat Ratio 4.2 {mg/g_creat} (Normal) Range: 0.0-30.0 Microalbumin, Urine 6.3 ug/mL (Normal) Creatinine, Urine 149.4 mg/dL (Normal) :18 METABOLIC PANEL, COMPREHENSIVE Comments: PATIENT WAS FASTINGPERFORMED BY: Blink BookingNorthern Navajo Medical CenterCtmzol8969 [facility] [id number] (58306) ALT (SGPT) 30 [iU]/L (Normal) Range: 0-32 [...] Range: 65-99 :18 CBC W/AUTO DIFF WBC (00416) Comments: PATIENT WAS FASTINGPERFORMED BY: LabCoNorthern Navajo Medical CenterBbomit8576 [facility] [id number] Immature Grans (Abs) 0.0 {x10E3/uL} (Normal) Range: [...] 6.1 {x10E3/uL} (Normal) Range: 3.4-10.8 :02 TSH (73058) Comments: PATIENT WAS FASTINGPERFORMED BY: LabCoSt. Joseph's Regional Medical CenterBcakdw7838 [facility] [id number] TSH 2.070 {uIU/mL} (Normal) Range: 0.450-4.500 :02 CBC W/AUTO DIFF WBC Comments: PATIENT WAS FASTINGPERFORMED BY: [facility]6370 [facility] [id number] Information: [id number] (71258) Immature Grans (Abs) 0.0 {x10E3/uL} (Normal) Range: [...] 3.77-5.28 WBC 5.1 {x10E3/uL} (Normal) Range: 3.4-10.8 05-Cve-615642:02 MICROALBUMIN: CREATININE RATIO Comments: PATIENT WAS FASTINGPERFORMED BY: [facility]6370 [facility] [id number] (44948) AND (13720) Microalb/Creat Ratio 4.5 {mg/g_creat} (Normal) Range: 0.0-30.0 Microalbumin, Urine 5.7 ug/mL (Normal) Range: 0.0-17.0 Creatinine, Urine 127.2 mg/dL (Normal) Range: 15.0-278.0 :02 METABOLIC PANEL, COMPREHENSIVE Comments: PATIENT WAS FASTINGPERFORMED BY: OneSun70 [facility]Former[facility] [id number] (57096) ALT (SGPT) 20 [iU]/L (Normal) Range: 0-32 [...] mg/dL (Normal) Range: 65-99 :02 LIPID PANEL (83907) Comments: PATIENT WAS FASTINGPERFORMED BY: OneSun70 [facility]Former[facility] [id number] LDL/HDL Ratio 2.1 {ratio_units} (Normal) Range: 0.0-3.2 [...] Cholesterol, Total 203 mg/dL (Abnormal) Range: 100-199 69-Yns-742157:02 HGB A1C (87965) Comments: PATIENT WAS FASTINGPERFORMED BY: [facility]6370 [facility] [id number] Hemoglobin A1c 6.0 % (Abnormal) Range: 4.8-5.6 Comments: . Pre-diabetes: 5.7 - 6.4 Diabetes: >6.4 Glycemic control for adults with diabetes: <7.0 84-Bqs-739816:15 CULTURE, SPUTUM (55792) Comments: PERFORMED BY: LabCoSt. Joseph's Regional Medical CenterFrjpkh39[address] [place] [address] [id number] Information: SRC: SPUTUM Result 1 RRF (Normal) Comments: Routine respiratory jamia Lower Respiratory Culture Final report (Normal) 95-Mnp-409004:45 Rapid Flu (63503 x 2) Influenza A Ag negative (Normal) 13-Hbc-898269:50 HgA1C , Office (22400) HgA1C , Office 6.4 % (Normal) Range: 4.6 - 7.1 31-Kfz-792826:50 Blood Glucose , Office (27456) Blood Glucose , Office 102 (Normal) Comments: non-fasting 7-Loy-574595:00 Urinalysis, Office (46339) UA - LEUKOCYTE ESTERASE Negative (Normal) UA [...] Microscopic Examination Comments: PATIENT WAS FASTINGPERFORMED BY: LabHills & Dales [facility] Hospital6370 [facility] [id number] Bacteria Moderate (Abnormal) Mucus Threads Present (Normal) Epithelial Cells (non renal) >10 {/hpf} (Abnormal) Range: 0 - 10 RBC 0-2 {/hpf} (Normal) Range: 0 - 2 WBC >30 {/hpf} (Abnormal) Range: 0 - 5 :19 HgA1C , Office (26905) HgA1C , Office 6.1 % (Normal) Range: 4.6 - 7.1 :19 Blood Glucose , Office (28109) Blood Glucose , Office 98 (Normal) :19 HgA1C , Office (30632) HgA1C , Office 5.9 % (Normal) Range: 4.6 - 7.1 :19 Blood Glucose , Office (62315) Blood Glucose , Office 97 (Normal) 12-Ewz-807361:55 METABOLIC PANEL, COMPREHENSIVE Comments: PATIENT NOT FASTINGPERFORMED BY: LabCoMatthew Ville 4403970 [facility] [id number] (37684) ALT (SGPT) 17 [iU]/L (Normal) Range: 0-32 [...] Glucose, Serum 85 mg/dL (Normal) Range: 65-99 10-Rvc-007251:55 CBC WITH MANUAL DIFF Comments: PATIENT NOT FASTINGPERFORMED BY: ADI [facility] Jwootl7163 [facility] [id number] Information: [id number]; will review at 3-30 appt (42819) Immature Grans (Abs) 0.0 {x10E3/uL} (Normal) Range: [...] (Normal) Range: 3.4-10.8 :41 URINALYSIS, W/ MICRO (50194) Comments: PATIENT WAS FASTINGPERFORMED BY: ExelisSt. Joseph's Regional Medical CenterBzqlso0579 [facility] [id number] Microscopic Examination See below: (Normal) Comments: Microscopic was indicated and was performed. Nitrite, Urine Negative (Normal) Urobilinogen,Semi-Qn 0.2 mg/dL (Normal) Range: 0.0-1.9 Bilirubin Negative (Normal) Occult Blood Negative (Normal) Ketones Negative (Normal) Glucose Negative (Normal) Protein Negative (Normal) WBC Esterase 3+ (Abnormal) Appearance Clear (Normal) Urine-Color Yellow (Normal) pH 6.5 (Normal) Range: 5.0-7.5 Specific [place] 1.020 (Normal) Range: 1.005-1.030 :41 MICROALBUMIN: CREATININE RATIO Comments: PATIENT WAS FASTINGPERFORMED BY: Blink BookingSt. Joseph's Regional Medical CenterHldmng1830 [facility] [id number] (54593) AND (41255) Microalb/Creat Ratio 9.9 {mg/g_creat} (Normal) Range: 0.0-30.0 Microalbumin, Urine 10.2 ug/mL (Normal) Range: 0.0-17.0 Creatinine, Urine 103.0 mg/dL (Normal) Range: 15.0-278.0 :41 METABOLIC PANEL, COMPREHENSIVE Comments: PATIENT WAS FASTINGPERFORMED BY: TubisHills & Dales General Hospital6370 [facility] [id number] (62606) ALT (SGPT) 33 [iU]/L (Abnormal) Range: 0-32 [...] mg/dL (Normal) Range: 65-99 :41 LIPID PANEL (03408) Comments: PATIENT WAS FASTINGPERFORMED BY: [employer] [facility] [id number] LDL/HDL Ratio 1.8 {ratio_units} (Normal) Range: 0.0-3.2 [...] MANUAL DIFF Comments: PATIENT WAS FASTINGPERFORMED BY: [facility]oxifysouthern [facility] [place] [id number] Information: [id number] (48984) Immature Grans (Abs) 0.0 {x10E3/uL} (Normal) Range: [...] 7.1 {x10E3/uL} (Normal) Range: 3.4-10.8 :41 TSH (62156) Comments: PATIENT WAS FASTINGPERFORMED BY: Blink Book[employer] Emsajz5513 [facility] [id number] TSH 2.910 {uIU/mL} (Normal) Range: 0.450-4.500 66-Sbz-678043:29 HEMOGLOBIN GLYCLATED (HGB Comments: PATIENT NOT FASTINGPERFORMED BY: TubisCoNorthern Navajo Medical CenterLsurna5078 [facility] [id number] Information: [id number] A1C) (07353) Hemoglobin A1c 6.1 % (Abnormal) Range: 4.8-5.6 Comments: . Increased risk for diabetes: 5.7 - 6.4 Diabetes: >6.4 Glycemic control for adults with diabetes: <7.0 :48 HgA1C , Office (44246) HgA1C , Office 9.0 % (Abnormal) Range: 4.6 - 7.1 :48 Blood Glucose , Office (75885) Blood Glucose , Office 125 (Normal) :08 HgA1C , Office (81791) HgA1C , Office 5.8 % (Normal) Range: 4.6 - 7.1 :08 Blood Glucose , Office (51900) Blood Glucose , Office 88 (Normal) 78-Eoz-303102:26 Rapid Flu (70816 x 2) Influenza A Ag negative A and B (Normal) :01 HgA1C , Office (08929) HgA1C , Office 6.0 % (Normal) Range: 4.6 - 7.1 :01 Blood Glucose , Office (07941) Blood Glucose , Office 79 (Normal) :01 HgA1C , Office (82532) HgA1C , Office 6.3 % (Normal) Range: 4.6 - 7.1 :00 Blood Glucose , Office (85432) Blood Glucose , Office 99 (Normal) :46 Microscopic Examination Comments: PATIENT WAS FASTINGPERFORMED BY: Blink Booking Kztdiv6093 [facility] [id number] Bacteria None seen (Normal) Mucus Threads Present (Normal) Epithelial Cells (non renal) 0-10 {/hpf} (Normal) Range: 0 - 10 RBC 0-3 {/hpf} (Normal) Range: 0 - 3 WBC 6-10 {/hpf} (Abnormal) Range: 0 - 5 :46 TSH (75717) Comments: PATIENT WAS FASTINGPERFORMED BY: [employer] Zqanvi2534 [facility] [id number] TSH 2.400 {uIU/mL} (Normal) Range: 0.450-4.500 :46 URINALYSIS, W/ MICRO (35666) Comments: PATIENT WAS FASTINGPERFORMED BY: [facility]6370 [facility] [id number] Microscopic Examination See below: (Normal) Nitrite, Urine Negative (Normal) Urobilinogen,Semi-Qn 0.2 mg/dL (Normal) Range: 0.0-1.9 Bilirubin Negative (Normal) Occult Blood Negative (Normal) Ketones Negative (Normal) Glucose Negative (Normal) Protein Trace (Normal) WBC Esterase 2+ (Abnormal) Appearance Clear (Normal) Urine-Color Yellow (Normal) pH 8.0 (Abnormal) Range: 5.0-7.5 Specific [place] 1.026 (Normal) Range: 1.005-1.030 :46 MICROALBUMIN: CREATININE RATIO Comments: PATIENT WAS FASTINGPERFORMED BY: Blink BookingSt. Joseph's Regional Medical CenterMdkldj2081 [facility] [id number] (60114) AND (07956) Microalb/Creat Ratio 2.4 {mg/g_creat} (Normal) Range: 0.0-30.0 Microalbumin, Urine 3.7 ug/mL (Normal) Range: 0.0-17.0 Creatinine, Urine 151.9 mg/dL (Normal) Range: 15.0-278.0 :46 METABOLIC PANEL, COMPREHENSIVE Comments: PATIENT WAS FASTINGPERFORMED BY: Blink BookingSt. Joseph's Regional Medical CenterDsabwe8371 [facility] [id number] (32579) ALT (SGPT) 29 [iU]/L (Normal) Range: 0-32 [...] mg/dL (Abnormal) Range: 65-99 :46 LIPID PANEL (25942) Comments: PATIENT WAS FASTINGPERFORMED BY: OneSun70 [facility] [id number] LDL/HDL Ratio 1.8 {ratio_units} (Normal) Range: 0.0-3.2 [...] MANUAL DIFF Comments: PATIENT WAS FASTINGPERFORMED BY: ExelisSt. Joseph's Regional Medical CenterQbgcym9779 [facility] [id number] Information: SRC: URINE (93752) Immature Grans (Abs) 0.0 {x10E3/uL} (Normal) Range: [...] {x10E3/uL} (Normal) Range: 4.0-10.5 :47 CCP ANTIBODY (02033) Comments: PATIENT WAS FASTINGPERFORMED BY: [employer] [facility] [id number] BY: Blink Booking[address] [id number] CCP Antibodies IgG/IgA 22 {units} (Abnormal) Range: 0-19 Comments: Negative <20 Weak positive 20 - 39 Moderate positive 40 - 59 Strong positive >59 :47 SED RATE ERYTHROCYTE Comments: PATIENT WAS FASTINGPERFORMED BY: [employer] [facility] [id number] BY: [address] [id number] (29115) Sedimentation Rate-Westergren 3 mm/h (Normal) Range: 0-40 :47 C-REACTIVE PROTEIN (04789) Comments: PATIENT WAS FASTINGPERFORMED BY: [place] 6638870 [facility] [id number] BY: [address] [id number] C-Reactive Protein, Quant 6.5 mg/L (Abnormal) Range: 0.0-4.9 :47 RHEUMATOID FACTOR-QUANT Comments: PATIENT WAS FASTINGPERFORMED BY: Blink Booking[address] [id number] BY: [address] [id number] (86462) RA Latex Turbid. 10.2 {IU/mL} (Normal) Range: 0.0-13.9 :47 YAMIL (ANTINUCLEAR ANTIBODY) Comments: PATIENT WAS FASTINGPERFORMED BY: Tubis[address] [id number] BY: [address] [id number] (99981) YAMIL Direct Negative (Normal) :35 HgA1C , Office (52836) HgA1C , Office 6.8 % (Normal) Range: 4.6 - 7.1 :35 Blood Glucose , Office (49011) Blood Glucose , Office 89 (Normal) Comments: PATIENT DID ON HER OWN MACHINE :56 HgA1C , Office (50375) HgA1C , Office 6.0 % (Normal) Range: 4.6 - 7.1 :56 Blood Glucose , Office (81533) Blood Glucose , Office 100 (Normal) 21-Ome-135209:45 Microscopic Examination Comments: PATIENT WAS FASTINGPERFORMED BY: LabMatthew Ville 6513170 [facility] [id number] Bacteria Many (Abnormal) Mucus Threads Present (Normal) Epithelial Cells (non renal) >10 {/hpf} (Abnormal) Range: 0 - 10 RBC 0-3 {/hpf} (Normal) Range: 0 - 3 WBC 11-30 {/hpf} (Abnormal) Range: 0 - 5 :02 HgA1C , Office (67155) HgA1C , Office 6.1 % (Normal) Range: 4.6 - 7.1 :02 Blood Glucose , Office (57792) Blood Glucose , Office 96 (Normal) :41 CBC With Differential/Platelet Comments: PATIENT WAS FASTINGPERFORMED BY: LabCoSt. Joseph's Regional Medical CenterMaruzd2046 [facility] [id number] Immature Grans (Abs) 0.0 {x10E3/uL} (Normal) Range: [...] 3.80-5.10 WBC 5.5 {x10E3/uL} (Normal) Range: 4.0-10.5 22-Sip-590977:41 Comp. Metabolic Panel (14) Comments: PATIENT WAS FASTINGPERFORMED BY: LabCoSt. Joseph's Regional Medical CenterHwgnkx0050 [facility] [id number] ALT (SGPT) 22 [iU]/L (Normal) Range: 0-40 [...] With LDL/HDL Comments: PATIENT WAS FASTINGPERFORMED BY: Blink BookingSt. Joseph's Regional Medical CenterPwongw3818 [facility] [id number] Ratio LDL/HDL Ratio 1.7 {ratio_units} (Normal) Range: [...] Randm Ur Comments: PATIENT WAS FASTINGPERFORMED BY: TubisHills & Dales General Hospital6370 [facility] [id number] Microalb/Creat Ratio 5.5 {mg/g_creat} (Normal) Range: 0.0-30.0 Microalbumin, Urine 9.9 ug/mL (Normal) Range: 0.0-17.0 Creatinine, Urine 181.2 mg/dL (Normal) Range: 15.0-278.0 97-Odc-306880:41 Microscopic Examination Comments: PATIENT WAS FASTINGPERFORMED BY: TubisHills & Dales General Hospital6370 [facility] [id number] Bacteria Few (Normal) Mucus Threads Present (Normal) Epithelial Cells (non >10 {/hpf} Range: 0 - 10 renal) (Abnormal) RBC 0-3 {/hpf} (Normal) Range: 0 - 3 WBC 0-5 {/hpf} (Normal) Range: 0 - 5 TSH 2.900 {uIU/mL} Comments: PATIENT WAS FASTINGPERFORMED BY: [facility]6370 [facility] [id number] 1:41 (Normal) Range: 0.450-4.500 86-Kos-374022:41 Urinalysis, Complete Comments: PATIENT WAS FASTINGPERFORMED BY: [address]ox RoadDublin [place] [id number] Microscopic Examination See below: (Normal) Nitrite, Urine Negative (Normal) Urobilinogen,Semi-Qn 0.2 mg/dL (Normal) Range: 0.0-1.9 Bilirubin Negative (Normal) Occult Blood Negative (Normal) Ketones Negative (Normal) Glucose Negative (Normal) Protein Negative (Normal) WBC Esterase 1+ (Abnormal) Appearance Clear (Normal) Urine-Color Yellow (Normal) pH 6.5 (Normal) Range: 5.0-7.5 Specific [place] 1.024 (Normal) Range: 1.005-1.030 07-Xxu-439886:45 URINALYSIS, W/ MICRO (54036) Comments: PATIENT WAS FASTINGPERFORMED BY: [facility]6370 [facility] [id number] Microscopic Examination See below: (Normal) Nitrite, Urine Negative (Normal) Urobilinogen,Semi-Qn 0.2 mg/dL (Normal) Range: 0.0-1.9 Bilirubin Negative (Normal) Ketones Negative (Normal) Occult Blood Negative (Normal) Glucose Negative (Normal) Protein 1+ (Abnormal) WBC Esterase 1+ (Abnormal) Appearance Turbid (Abnormal) Urine-Color Yellow (Normal) pH 8.5 (Abnormal) Range: 5.0-7.5 Specific [place] 1.027 (Normal) Range: 1.005-1.030 :45 TSH (53745) Comments: PATIENT WAS FASTINGPERFORMED BY: [facility]6370 [facility] [id number] TSH 1.890 {uIU/mL} (Normal) Range: 0.450-4.500 83-Tkg-680233:45 MICROALBUMIN: CREATININE RATIO Comments: PATIENT WAS FASTINGPERFORMED BY: [place] 6638870 [facility] [id number] (00146) AND (31567) Microalb/Creat Ratio 9.5 {mg/g_creat} (Normal) Range: 0.0-30.0 Creatinine, Urine 186.1 mg/dL (Normal) Range: 15.0-278.0 Microalbumin, Urine 17.7 ug/mL (Abnormal) Range: 0.0-17.0 :45 METABOLIC PANEL, COMPREHENSIVE Comments: PATIENT WAS FASTINGPERFORMED BY: ADI [employer]70 [facility] [id number] ([id number]) ALT (SGPT) 21 [iU]/L (Normal) Range: 0-40 [...] Glucose, Serum 98 mg/dL (Normal) Range: 65-99 22-Woi-[id number]:45 LIPID PANEL (78734) Comments: PATIENT WAS FASTINGPERFORMED BY: [id number] [facility] [id number] LDL/HDL Ratio 1.6 {ratio_units} (Normal) Range: 0.0-3.2 [...] 100-199 Comments: Please note reference interval change 88-Gop-365533:45 CBC WITH MANUAL DIFF Comments: PATIENT WAS FASTINGPERFORMED BY: [facility] [id number] [facility] [id number] Information: [id number] ([id number]) Immature Grans (Abs) 0.0 {x10E3/uL} (Normal) Range: [...] (Normal) Range: 4.0-10.5 :09 HgA1C , Office (66269) HgA1C , Office 6.0 % (Normal) Range: 4.6 - 7.1 :09 Blood Glucose , Office (74089) Blood Glucose , Office 79 (Normal) :33 Blood Glucose , Office (21051) Blood Glucose , Office 98 (Normal) :33 HgA1C , Office (20170) HgA1C , Office 6.0 % (Normal) Range: 4.6 - 7.1 :39 CBC & PLATELETS (AUTO) Comments: PATIENT WAS FASTINGPERFORMED BY: Blink BookingSt. Joseph's Regional Medical CenterTyqpnq0003 [facility] [id number] (48101) Platelets 242 {x10E3/uL} (Normal) Range: 140-415 RDW 13.8 % (Normal) Range: 11.7-15.0 MCHC 33.2 g/dL (Normal) Range: 32.0-36.0 MCH 29.9 pg (Normal) Range: 27.0-34.0 Hematocrit 40.7 % (Normal) Range: 34.0-44.0 MCV 90 fL (Normal) Range: 80-98 Hemoglobin 13.5 g/dL (Normal) Range: 11.5-15.0 RBC 4.51 {x10E6/uL} (Normal) Range: 3.80-5.10 WBC 4.8 {x10E3/uL} (Normal) Range: 4.0-10.5 :39 METABOLIC PANEL, Comments: PATIENT WAS FASTINGPERFORMED BY: Blink BookingSt. Joseph's Regional Medical CenterIcrvbv7523 [facility] [id number] Information: [id number] COMPREHENSIVE (51034) ALT (SGPT) 20 [iU]/L (Normal) Range: 0-40 [...] Glucose, Serum 94 mg/dL (Normal) Range: 65-99 20-Tam-580323:39 TSH (THYROID STIMULATING Comments: PATIENT WAS FASTINGPERFORMED BY: TubisCoSt. Joseph's Regional Medical CenterNixlhx8405 [facility] [id number] HORMONE) (73701) TSH 2.830 {uIU/mL} (Normal) Range: 0.450-4.500 :39 MICROALBUMIN URINE QUANT Comments: PATIENT WAS FASTINGPERFORMED BY: 4 [employer] stars LabCoSt. Joseph's Regional Medical CenterAcnveb6501 [facility] [id number] (96456) Creatinine, Urine 107.7 mg/dL (Normal) Range: 15.0-278.0 Microalb/Creat Ratio 4.0 {mg/g_creat} (Normal) Range: 0.0-30.0 Microalbumin, Urine 4.3 ug/mL (Normal) Range: 0.0-17.0 :39 LIPID PANEL (75219) Comments: PATIENT WAS FASTINGPERFORMED BY: ADI [employer] Xbxrmk8970 [facility] [id number]; appt 06/25/11 LDL/HDL Ratio 1.9 {ratio_units} (Normal) Range: 0.0-3.2 LDL Cholesterol Calc 108 mg/dL (Abnormal) Range: 0-99 VLDL Cholesterol Aneesh 15 mg/dL (Normal) Range: 5-40 HDL Cholesterol 56 mg/dL (Normal) Comments: According to ATP-III Guidelines, HDL-C >59 mg/dL is considered anegative risk factor for CHD. Triglycerides 76 mg/dL (Normal) Range: 0-149 Cholesterol, Total 179 mg/dL (Normal) Range: 100-199 88-Qzf-354072:03 HEMOGLOBIN GLYCLATED (HGB Comments: PATIENT NOT FASTINGPERFORMED BY: [employer] Laeqqm9209 [facility] [id number] Information: [id number] A1C) (53789) Hemoglobin A1c 6.0 % (Abnormal) Range: 4.8-5.6 Comments: Increased risk for diabetes: 5.7 - 6.4 Diabetes: >6.4 Glycemic control for adults with diabetes: <7.0 03-Qgx-930790:42 Blood Glucose , Office (52405) Blood Glucose , Office 120 (Normal) Comments: patient reported. Showed me on her meter and declined to have done in office today. 17-Eoa-351530:32 Microscopic Examination Comments: PATIENT WAS FASTINGPERFORMED BY: [employer] Ubpgzo0554 [facility] [id number] Bacteria Moderate (Abnormal) Mucus Threads Present (Normal) Epithelial Cells (non renal) 0-10 {/hpf} (Normal) Range: 0 - 10 RBC 0-3 {/hpf} (Normal) Range: 0 - 3 WBC 0-5 {/hpf} (Normal) Range: 0 - 5 51-Bbn-765306:32 URINALYSIS, W/ MICRO (60882) Comments: PATIENT WAS FASTINGPERFORMED BY: ExelisSt. Joseph's Regional Medical CenterDpjaxl2781 [facility] [id number] Microscopic Examination See below: (Normal) Bilirubin Negative (Normal) Microscopic Examination MICRON (Normal) Comments: Microscopic follows if indicated. Nitrite, Urine Negative (Normal) Urobilinogen,Semi-Qn 0.2 mg/dL (Normal) Range: 0.0-1.9 Glucose Negative (Normal) Ketones Negative (Normal) Occult Blood Negative (Normal) Appearance Clear (Normal) Protein Negative (Normal) WBC Esterase Negative (Normal) pH 7.0 (Normal) Range: 5.0-7.5 Urine-Color Yellow (Normal) Specific [place] 1.020 (Normal) Range: 1.005-1.030 51-Plm-789692:32 METABOLIC PANEL, COMPREHENSIVE Comments: PATIENT WAS FASTINGPERFORMED BY: ExelisSt. Joseph's Regional Medical CenterZbqycy1419 [facility] [id number] (74505) ALT (SGPT) 18 [iU]/L (Normal) Range: 0-40 [...] Glucose, Serum 90 mg/dL (Normal) Range: 65-99 28-Wng-502781:32 CBC WITH MANUAL DIFF Comments: PATIENT WAS FASTINGPERFORMED BY: LabCoSt. Joseph's Regional Medical CenterEzxpai4615 [facility] [id number] Information: [id number] (79348) Immature Grans (Abs) 0.0 {x10E3/uL} (Normal) Range: [...] 3.80-5.10 WBC 5.0 {x10E3/uL} (Normal) Range: 4.0-10.5 33-Ijt-986439:32 TSH (05748) Comments: PATIENT WAS FASTINGPERFORMED BY: [address] [id number] TSH 3.890 {uIU/mL} (Normal) Range: 0.450-4.500 :32 MICROALBUMIN: CREATININE RATIO Comments: PATIENT WAS FASTINGPERFORMED BY: [address] [id number] (47790) AND (49577) Microalb/Creat Ratio 2.7 {mg/g_creat} (Normal) Range: 0.0-30.0 Microalbumin, Urine 3.2 ug/mL (Normal) Range: 0.0-17.0 Creatinine, Urine 117.9 mg/dL (Normal) Range: 15.0-278.0 :32 LIPID PANEL (57762) Comments: PATIENT WAS FASTINGPERFORMED BY: [place] 6638870 [facility] [id number] LDL/HDL Ratio 1.8 {ratio_units} (Normal) Range: 0.0-3.2 LDL Cholesterol Calc 115 mg/dL (Abnormal) Range: 0-99 VLDL Cholesterol Aneesh 16 mg/dL (Normal) Range: 5-40 HDL Cholesterol 64 mg/dL (Normal) Comments: According to ATP-III Guidelines, HDL-C >59 mg/dL is considered anegative risk factor for CHD. Triglycerides 79 mg/dL (Normal) Range: 0-149 Cholesterol, Total 195 mg/dL (Normal) Range: 100-199 16-Rob-874031:29 PELVIC (NON ) Radiology See Note Comments: [...] on 08/10/10 1410 Sign by: Lizzy Day 23-Vrl-38557:00 TRANSVAGINAL NON- Radiology See Note Comments: ADDENDUM [...] (ACTIVATED PARTIAL Comments: PATIENT NOT FASTINGPERFORMED BY: [place] [id number] [facility] [id number] THROMBOPLASTIN TIME) (48976) aPTT 29 {sec} (Normal) Range: 24-33 Comments: This test has not been validated for monitoring unfractionated heparintherapy. aPTT-based therapeutic ranges for unfractionated heparintherapy have not been established. For general guidelines onHeparin monitoring, refer to the [facility] Directory of Services. 07-Eao-052886:44 PT (PROTHROMBIN TIME) (30035) Comments: PATIENT NOT FASTINGPERFORMED BY: [facility]6370 [facility] [id number] Prothrombin Time 10.5 {sec} (Normal) Range: 8.7-11.5 INR 1.0 (Normal) Range: 0.8-1.2 Comments: Reference interval is for non-anticoagulated patients. . Suggested INR therapeutic range for Vitamin K anta gonist therapy: Standard Dose (moderate intensity therapeutic range): 2.0 - 3.0 Higher intensity therapeutic range 2.5 - 3.5 :44 PROLACTIN (05406) Comments: PATIENT NOT FASTINGPERFORMED BY: [facility] Pfynmw5576 [facility] [id number] Prolactin 14.9 ng/mL (Normal) Range: 4.8-23.3 :44 METABOLIC PANEL, Comments: PATIENT NOT FASTINGPERFORMED BY: [facility] Urahrm4888 [facility] [id number] Information: [id number] COMPREHENSIVE (84748) ALT (SGPT) 22 [iU]/L (Normal) Range: 0-40 [...] 88 mg/dL (Normal) Range: 65-99 :44 TSH (36884) Comments: PATIENT NOT FASTINGPERFORMED BY: [facility]6370 [facility] [id number] TSH 2.410 {uIU/mL} (Normal) Range: 0.450-4.500 :44 CBC (AUTO) (28968) Comments: PATIENT NOT FASTINGPERFORMED BY: [facility]6370 [facility] [id number] MCHC 33.6 g/dL (Normal) Range: 32.0-36.0 Platelets 295 {x10E3/uL} (Normal) Range: 140-415 RDW 14.0 % (Normal) Range: 11.7-15.0 Hematocrit 38.7 % (Normal) Range: 34.0-44.0 MCH 30.1 pg (Normal) Range: 27.0-34.0 MCV 90 fL (Normal) Range: 80-98 Hemoglobin 13.0 g/dL (Normal) Range: 11.5-15.0 RBC 4.32 {x10E6/uL} (Normal) Range: 3.80-5.10 WBC 7.7 {x10E3/uL} (Normal) Range: 4.0-10.5 :23 HgA1C , Office (81538) HgA1C , Office 6.1 % (Normal) Range: 4.6 - 7.1 :23 Blood Glucose , Office (60673) Blood Glucose , Office 100 (Normal) :18 CBC With Differential/Platelet Comments: PATIENT WAS FASTINGPERFORMED BY: [facility]6370 [facility] [id number] Immature Grans (Abs) 0.0 {x10E3/uL} (Normal) Range: [...] 3.80-5.10 WBC 6.1 {x10E3/uL} (Normal) Range: 4.0-10.5 19-Xxq-000809:18 Comp. Metabolic Panel (14) Comments: PATIENT WAS FASTINGPERFORMED BY: LabCoSt. Joseph's Regional Medical CenterJairba3332 [facility] [id number] ALT (SGPT) 18 [iU]/L (Normal) Range: 0-40 [...] Glucose, Serum 99 mg/dL (Normal) Range: 65-99 50-Lwd-212739:18 Lipid Panel With LDL/HDL Comments: PATIENT WAS FASTINGPERFORMED BY: [employer] [facility] [id number] Ratio HDL Cholesterol 53 mg/dL (Normal) Comments: [...] 2.770 {uIU/mL} Comments: PATIENT WAS FASTINGPERFORMED BY: [employer] [facility] [id number] :18 (Normal) Range: 0.450-4.500 :48 HgA1C , Office (07893) HgA1C , Office 6.2 % (Normal) Range: 4.6 - 7.1 :48 Blood Glucose , Office (04319) Blood Glucose , Office 97 (Normal) :46 CBC With Differential/Platelet Comments: PATIENT WAS FASTINGPERFORMED BY: LabCoMatthew Ville 4403970 [facility] [id number] Baso (Absolute) 0.0 {x10E3/uL} (Normal) Range: 0.0-0.2 [...] Panel (14) Comments: PATIENT WAS FASTINGPERFORMED BY: [employer] Xdvgdj5223 [facility] [id number] A/G Ratio 1.5 (Normal) Range: 1.1-2.5 Albumin, [...] Serum 103 mg/dL (Abnormal) Range: 65-99 If -Italian >59 mL/min/1.73 Comments: Note: Persistent reduction for [...] With LDL/HDL Comments: PATIENT WAS FASTINGPERFORMED BY: [employer]uo6370 [facility] [id number] Ratio Cholesterol, Total 179 mg/dL (Normal) Range: [...] Cholesterol Aneesh 14 mg/dL (Normal) Range: 5-40 21-Qmi-02985:46 Thyroxine (T4) Free, Direct, S Comments: PATIENT WAS FASTINGPERFORMED BY: LabCoSt. Joseph's Regional Medical CenterZighvw3736 [facility] [id number] T4,Free(Direct) 1.13 ng/dL Range: 0.61-1.76 (Normal) 30-Jul-2008 Triiodothyronine,Free,Seru 3.0 pg/mL (Normal) Comments: PATIENT WAS FASTINGPERFORMED BY: LabCoSt. Joseph's Regional Medical CenterDqjzyp9444 [facility] [id number] 9:46 m Range: 2.3-4.2 30-Jul-2008 TSH 2.949 {uIU/mL} Comments: PATIENT WAS FASTINGPERFORMED BY: LabCoSt. Joseph's Regional Medical CenterPcpnpu1175 [facility] [id number] 9:46 (Normal) Range: 0.450-4.500 63-Wlb-14026:43 Blood Glucose , Office (64461) Comments: done>Wf. Blood Glucose , Office 100 (Normal) 5-Zzk-660377:30 GLUP 105 mg/dL (Normal) Comments: GLU,2HPPG 75gm GLUC PPG GLUP from 1208:Y98435H. 7-Avd-423063:24 ESR SED RATE 31 mm/h (Abnormal) Range: 0-30 9-Wrp-453142:24 HGB A1C 6.7 % (Abnormal) Range: 4.0-6.3 Comments: The methodology of Hgb A1C has changed to Hendricks BehringDimension RXL. No significant changes in patientresults are expected. The reference range remains the same. 1-Bzd-663320:03 BREAST UNILATERAL US () Radiology Report See Note (Normal) Comments: Exam Number: [id number] TARGETED RIGHT BREAST ULTRASOUND HISTORYAbnormal mammogram. High [...] Report See Note (Normal) Comments: Exam Number: [id number] TARGETED RIGHT BREAST ULTRASOUND HISTORYAbnormal mammogram. High-resolution [...] werealso examined with computer-aide d detection software ([employer].). Reported By: PHYLLIS HEWITT M.D. 21-Jul-20088:36 [facility] DIGITAL & CAD Radiology Report See Note (Normal) Comments: Exam Number: [id number] MAMMOGRAM, BILATERAL SCREENING DIGITAL AND CAD HISTORYRoutine [...] patient reported a previous study performed at [facility]. That examination was too old [...] mammograms werealso examined with computer-aided detection software ([employer] Reported By: PHYLLIS HEWITT M.D. 12-Adn-61907:26 H pylori, IgM, IgG, IgA Ab Comments: PERFORMED BY: LabHills [facility]6370 [facility] [id number] H. pylori IgG, Abs <0.9 U/mL (Normal) [...] Diarrhea Unspecified osteoarthritis, unspecified site : Reviewed [employer] Driver Letter Indication: Unspecified osteoarthritis, unspecified site Controlled [...] - Strool Based DNA Test, CRC SCREEN (83258)Indication: Screening for colon cancer On: 82-Ene-220713:51 Request TSH (40087)Indication: Controlled diabetes mellitus type II without complication On: 0-Wiy-747997:53 Request URINALYSIS, W/ MICRO (43136)Indication: Controlled diabetes mellitus type II without complication On: 7-Tlg-980474:53 Request MICROALBUMIN: CREATININE RATIO (15106) AND (82391)Indication: Controlled diabetes mellitus type II without complication On: 8-Qcc-419092:53 Request METABOLIC PANEL, COMPREHENSIVE (20203)Indication: Controlled diabetes mellitus type II without complication On: 5-Ose-303570:53 Request LIPOPROTEIN, BLD, BY NMR (60725)Indication: Controlled diabetes mellitus type II without complication On: 0-Gjq-505003:53 Request LIPID PANEL (47855)Indication: Controlled diabetes mellitus type II without complication On: 3-Itn-382467:53 Request CBC W/AUTO DIFF WBC (74544)Indication: Controlled diabetes mellitus type II without complication On: 0-Qyl-152770:52 Request HGB A1C (67389)Indication: Controlled diabetes mellitus type II without complication On: 22-Mar-20178:18 Request LIPID PANEL (15042)Indication: Hypercholesteremia On: 22-Mar-20178:17 Request HGB A1C (14312)Indication: Uncontrolled type II diabetes mellitus On: 31-Oct-2016 Request POTASSIUM SERUM (28307)Indication: High potassium On: 0-Xbc-782739:06 Request HELICO PYLORI, STOOL, INFCT ANTIGEN (13645)Indication: NSAID long-term use On: 9-Vzh-128090:05 Request TSH (92006)Indication: Uncontrolled type II diabetes mellitus On: 2-Fgk-373766:58 Request TSH (90794)Indication: Pain in unspecified joint On: 87-Zcg-935470:41 Request CBC WITH MANUAL DIFF (38872)Indication: Pain in unspecified joint On: 68-Krq-486866:41 Request METABOLIC PANEL, COMPREHENSIVE (35824)Indication: Pain in unspecified joint On: 76-Pyp-413566:41 Request URINALYSIS, W/ MICRO (33877)Indication: Benign essential hypertension On: 47-Qhf-884675:06 Request MICROALBUMIN: CREATININE RATIO (67845) AND (00883)Indication: Benign essential hypertension On: 89-Ggb-084743:06 Request URINE CED CULTURE-IDENTIFICATN (90027)Indication: Other abnormal finding of urine On: 11-Vmw-992864:56 Request TSH (96848)Indication: Controlled diabetes mellitus type II without complication On: :41 Request URINALYSIS, W/ MICRO (66713)Indication: Benign essential hypertension On: 8-Rcm-609168:41 Request MICROALBUMIN: CREATININE RATIO (97108) AND (67691)Indication: Benign essential hypertension On: :41 Request METABOLIC PANEL, COMPREHENSIVE (26024)Indication: Benign essential hypertension On: :41 Request LIPID PANEL (30411)Indication: Benign essential hypertension On: :41 Request CBC WITH MANUAL DIFF (36587)Indication: Benign essential hypertension On: :41 Request TSH (59181)Indication: Uncontrolled type II diabetes mellitus On: :37 Request METABOLIC PANEL, COMPREHENSIVE (62323)Indication: Uncontrolled type II diabetes mellitus On: :36 Request MICROALBUMIN: CREATININE RATIO (12807) AND (25555)Indication: Uncontrolled type II diabetes mellitus On: :36 Request LIPID PANEL (75436)Indication: Uncontrolled type II diabetes mellitus On: :36 Request CBC WITH MANUAL DIFF (83712)Indication: Uncontrolled type II diabetes mellitus On: :36 Request H. PYLORI BLD TEST UREASE NON-RAD (68106)Indication: Epigastric pain On: 40-Mth-93546:09 Request Planned Encounters Medical; 3 Month FU - On: 21-Jul-2018 11:45 [facility] Nina Jiménez DO, DO, Kathleen Planned Procedures Bone Density StudyBy: Tino ALONSO, On: 03-Jul-2018 Intent Nina Stover DO MAMMOGRAM BREAST BILATERAL On: 03-Jul-2018 Intent SCREENING DIGITAL (80427)By: Nina Jiménez DO, DO, Kathleen CT SCAN OF ABDOMEN AND PELVIS WITH On: 26-Jul-2017 Intent CONTRAST (26733)By: Nina Jiménez DO, DO, Kathleen ELECTROCARDIOGRAM, COMPLETE (ECG) On: 26-Jul-2017 Intent (97203)By: Nina Jiménez DO Comments: nsr no acute chg Nina Jiménez DO MAMMOGRAM, SCREENING, BOTH BREAST On: 01-Nov-2016 Intent (95345)By: Nina Jiménez DO, DO, Kathleen Echo CompleteBy: Tino ALONSO, On: 18-May-2016 Intent Nina Stover DO Comments: dr mckee Holter Monitor 24 hrsBy: Tino On: 04-May-2016 Intent Nina ALONSO DO, Kathleen ELECTROCARDIOGRAM, COMPLETE (ECG) On: 04-May-2016 Intent (22982)By: Nina Jiménez DO Comments: ? a fib vs atrial tachycardia - df rev as well -- thought maybe some flutter trying to breakthru where we see P waves -- pt asx and hemodynamically stable Nina Jiménez DO MRI ANKLE LEFT WO CONTRAST On: 14-Nov-2015 Intent (57682)By: Nina Jiménez DO, DO, Kathleen Aerosol Treatment (61001)By: Slarb On: 08-Dec-2014 Intent Nette VASQUEZ EKG (04812)By: Tino ALONSO, On: 16-Aug-2014 Intent Nina Stover [...] 08-Jul-2013 Intent (G8553)By: Geovanna Nuñez LPN EKG (49269)By: Trisha Emery MD On: 03-Jul-2013 Intent Comments: see scanned document of test done to see results reviewed today with patient Eprescribed prescriptions On: 08-Apr-2013 Intent (G8553)By: Geovanna Nuñez LPN EKG (73925)By: Tino ALONSO, On: 18-Aug-2012 Intent Nina Stover DO Comments: nsr no acute chg Eprescribed prescriptions On: 18-Aug-2012 Intent (G8553)By: Lidya Stephenson LPN Eprescribed prescriptions On: 08-May-2012 Intent (G8553)By: Nina Jiménez DO, DO, Kathleen Eprescribed prescriptions On: 08-May-2012 Intent (G8553)By: Geovanna Nuñez LPN CT - Neck (IV Contrast Needed)By: On: 28-Oct-2011 Intent Nina Jiménez DO, DO, Comments: follow up original image done at [facility]-- ( mri cervical spine) Nina EKG (93072)By: Tino ALONSO, On: 25-Jul-2011 Intent Nina Stover DO Comments: NSR NO ACUTE CHG Ultrasound - PelvisBy: Tino ALONSO, On: 01-Dec-2010 Intent Nina Stover DO Ultrasound - PelvisBy: Tino ALONSO, On: 02-Aug-2010 Intent Nina Stover DO Comments: may do vaginal probe if need to EKG (23546)By: Tino ALONSO, On: 16-Feb-2010 Intent Nina Stover DO Comments: nsr no acute chnages FLU VAC, SPLIT, >3 YEARS, On: 29-Jul-2008 Intent INTRAMUSC (49218)By: Nina Jiménez DO DONina IMMUNIZ ADMNIN, 1 VAC, SNGL/COMBO On: 29-Jul-2008 Intent (63056)By: Nina Jiménez DO Comments: lot # [id number]- 02/15/0970ovwk-MNEKnlyfl-MKlwsg- 0.5ML chenderson tolerated well Tino DO, Nina IMMUNIZ ADMNIN, 1 VAC, SNGL/COMBO On: 29-Jul-2008 Intent (81744)By: Nina Jiménez DO Comments: lot # [id number]- 12/27/20199425dbkj-GQSUhftfe-HBxfir- O.5ML chenderson tolerated well Tino DO, Nina PNEUM VAC ADLT/IMUMNOSPR, On: 29-Jul-2008 Intent SBC/INTRM (49751)By: Nina Jiménez DO, DO, Kathleen EKG (18118)By: Tino , On: 29-Jul-2008 Intent Nina Stover DO MAMMOGRAM, SCREENING, BOTH BREASTS On: 04-Jun-2008 Intent (13520)By: Jojo Santoyo Instructions Name Dates Details Physical [...] Pain,Unspecified Site (789.00) [facility] Payers [facility] CenterNina Ayon; dia guarantor
--- OUTSIDE RECORDS SUMMARY | 2018-09-13 21:07 | XMS RPT_ITS | Continuity of Care Document ---
:1955 Author Organization [facility] Address [facility] [address] Phone Care Team Providers Name Role Phone Nina Jiménez DO Unavailable Walter TOBAR, Bright Martin Unavailable Yari Huddleston Unavailable Dr. Roxana Newman MD Unavailable Juani Sahu Unavailable Rylee TOBAR, Haile Shin Unavailable CHRISTINA Nuñez Unavailable Unavailable Peggy Marie Unavailable Unavailable Unavailable Unavailable Problems Name Dates [...] Refused influenza vaccine) (Z28.21, V64.06) Status: Active Influenza vaccination declined (Renamed from Refused influenza vaccine) (Z28.21, V64.06) Comments: i dont take themi dont take them Status: Active Ingrown right big toenail (L60.0, [...] Blue In Vitro Strip 1 (one) Strip bid for 0 days Quantity: 180 {Strip} Refills: 3 Ordered:04-Aug-2018 Nathaly Jiménez DO, DO, Kathleen Start : 04-Aug-2018 Active Protonix 40 MG Oral Tablet Delayed [...] 20 {Tablet} Refills: 0 Ordered:26-Apr-2014 Tino ALONSO Nathaly ALONSO Nina Start : 26-Apr-2014 End : [...] : 08-Jun-2008 Discontinued Comments:This order discontinued per [facility]. PENLAC, 8% (External Solution) apply Solution topically [...] VAC ADLT/IMUMNOSPR, Date: 14-Nov-2015 Completed 14-Nov-2015 SBC/INTRM (54144) Comments: Lot:[id number]:04/05/17Dose:0.5mgRoute:imSite:david Boo By:WILLI signed Cardioversion Completed Comments: 2015 Colonoscopy Completed Comments: 07-27-08 - Diverticulitis Diverticulitis (562.11) Completed Comments: Colonoscopy 07-27-08 lt finger sx Completed Comments: 03/01 Date Value Details 04-Aug-2018 Surgery Visit Report Result: Comments: See Note; NOTES: [facility] [address] [place] [address] OFFICE VISIT Date of Service: 08/04/18 MR#: [id number] Acct: [id number] Name: NINA AYON Rep #: [id number] : 1955 Provider: Bright Paz MD Age/Sex: 63/F Location: [facility] Status: Signed Intake Vital Signs08/04/18 Body Mass Inde x (BMI) 37.9 08/04/18 Height 5 ft 7 in 08/04/18 Weight: 238 lb 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: Umbilical Hernia Job Compositor Required: No Is patient in pain?: No Allergies pneumococcal vaccine Allergy (Verified 08/04/18 08:36) Unknown seasonal allergies Allergy (Mild, Uncoded 04/19/18 14:52) itching Medications Citalopram Hydrobromide [Citalopram HBr] 20 mg PO DAILY 06/30/16 [History Confirmed 08/04/18] Pa ntoprazole Sodium [Protonix] 40 mg PO BID 06/30/16 [History Confirmed 08/04/18] Rivaroxaban [Xarelto] 20 mg PO DAILY 06/30/16 [History Confirmed 08/04/18] metoprolol succinate ER 100 mg tablet,extended release 24 hr 100 mg PO QDAY 01/07/18 [History Confirmed 08/04/18] hydrochlorothiazide 25 mg tablet 25 mg PO QDAY #90 tab 07/08/18 [Rx Confirmed 08/04/18] Bifidobacterium infantis 4 mg capsule 4 mg PO D AILY cap 08/04/18 [History Confirmed 08/04/18] amlodipine 5 mg tablet 5 mg PO DAILY 08/04/18 [History Confirmed 08/04/18] [facility] Medical History Anxie ty (Acute) Abnormal stress test (Acute) Chest pain (Acute) Hyperlipidemia (Chronic) Hypertension (Chronic) Nonrheumatic mitral valve regurgitation (Chronic) Nonrheumatic tricuspid (valve) insufficiency (Chronic) Paroxysmal atrial fibrillation (Acute) shelter (current) use of anticoagulants (Chronic) Abdominal pain (Acute) Diabetes (Acute) Umbilical hernia (Acute) GERD (gastroesophageal reflux diseas e) (Chronic) IBS (irritable bowel syndrome) (Chronic) Surgical History History of left heart catheterization (Chronic 03/11/18) Family History (Rev iewed 08/04/18 @ 08:57 by Bright Paz MD) Father CHF (congestive heart failure) Asthma Hypertension Heart disease Son Asthma Other Diabetes Parkinsons Social History Smoking Status: Nevdaniel craig smoker alcohol intake: never substance use type: does not use HPI HPI HPI: NINA AYON, is a 63 F who presents to the office today for discomfort in her upper abdominal area extending down towa rds her umbilicus. Patient states that she notices a bulge sometimes at her umbilicus area as well as her midline when she does a sit up. She is also noticed some discomfort extending all the way down f rom her costal margins down towards her umbilical area. This is improved many times when she is wearing a girdle. But when she has pressure on her epigastric and upper abdominal area she does notice the discomfort. Patient is on Xarelto for A. fib and occasionally uses Tylenol but does not like to use ibuprofen or Aleve for fear of having gastric problems or kidney problems. In addition she states th at when she takes a proton pump inhibitor she always gets diarrhea. She states that she is on a probiotic and her bowels have been fairly normal for her. She has not complained of any nausea or vomiting . She has had no problems with bowel movements. ROS General General: No weight change, appetite, fatigue, colon cancer, breast cancer or weakness HEENT HEENT: No difficulty swallowing, eye injury, ey e surgery, swollen glands or hoarseness Endo Endocrine: Yes diabetes mellitus; no thyroid disease, thyroid cancer, Hair loss, heat intolerance or cold intolerance Skin Skin: No rash or changing moles [place] Breast: No left breast lump, right breast lump, nipple discharge, breast pain, abnormal mammogram, abnormal US or breast enlargement Musc Musculoskeletal: Yes arthritis; no back problems, rheumatoi d arthritis, gout or joint pain Cardio Cardiovascular: Yes atrial fibrillation and high blood pressure; no pacemaker, heart disease, heart attack, heart stent, palpitations, shortness of breat with exer tion or chest pain Psych Psychiatric: Yes anxiety; no depression or hearing voices Resp Respiratory: Yes shortness of breath, No sleep apnea, No cough, No COPD, No asthma, No emphysema, No wheezing Dayanna ro Gastrointestinal: Yes abdominal pain, Yes nausea or vomiting, Yes diarrhea, No constipation, No blood in stool, Yes acid reflux, Yes hemorrhoids, No ulcers, No gallbladder problem, No black,tarry sto ols Barrett Hematologic: Yes blood thinners, No blood disorders, No bleeding, Yes anemia, No blood clots Neuro Neurologic: No system reviewed and no additional complaints, except as docu, No as per HPI, No abnormal walking, No abnormal hearing, No abnormal movements, No abnormal speech, No behavioral changes, No burning sensations, No confusion, No seizure-like activity, No unsteadiness, No dizziness, No localized weakness, No frequent falls, No headache(s), No lack of coordination, No loss of vision, No memory loss, Yes numbness, No other visual disturbances, No radiating pain, No restless legs, No se nsory deficit, No fainting, Yes tingling, No tremor(s), No weakness, No other Exam Const General: well developed, no acute distress, well hydrated Orientation: oriented to person, oriented to place, o riented to time [facility] Head: normocephalic, atraumatic Ears: external ears normal Mouth: moist mucous membranes Eyes Sclera: sclerae normal Pupils: normal by confrontation Neck Neck: no lymphadenopathy n oted Neck mass: No Thyroid: symmetrical, thyroid normal Chest Chest palpation AND inspection: normal inspection of the chest Breast Palpation: No nipple discharge GI Palpation: soft, tender, no masses, no hepatosplenomegaly Rectal Exam: other Other: Small umbilical defect is identified. She has tenderness all along her linea alba and extending up towards her costal margin she more likely does have a s mall component of costochondritis. Rectal exam deferred. Extrem General: no clubbing, cyanosis or edema, normal to inspection Assessment AND Plan Problems 1. Umbilical hernia without obstruction and w ithout gangrene K42.9 2. Diastasis recti M62.08 3. Costochondritis M94.0 Plan At this point I do not think the umbilical defect is large enough for us to do surgery on. I do not think that her pain is directly related to her umbilical defect. She has pain all along her linea alba and her costal margins. And more likely taking a low dose of ibuprofen might be of benefit here. Have instructed her that if she notices a large bulge at the umbilical area we will have to fix that. But I do not think any surgeries on her diastases recti is indicated at this time. We also had a lengthy discussion about he r knee pain she is happy that it is getting better and she is been able to do more bending with her knees. Medications Discontinued: Coding Level of Care Code Off vis,new,level 3 Diagnoses Umbilical hernia without obstruction and without gangrene K42.9 Diastasis recti M62.08 Costochondritis M94.0 08/04/18 0901 <Electronically signed by Bright Paz MD> Date Bright Paz MD Cosigner Signature: Date (if applicable) CC: Nina Jiménez DO 04-Aug-2018 SCREENING MAMM (CAD), BILAT Result: Comments: See Note; NOTES: [facility] Imaging Services [address] [place] [address] SCREENING MAMM (CAD), BILAT MR#: [id number] Acct: [id number] Name: NINA AYON Rep #: [id number] : 1955 F 63 From: Jaya Mac MD PCP: Nina Jiménez DO Status: REG CLI Study: SCREENING MAMM (CAD), BILAT Date of Exam: 08/04/18 Exam# [id number] Ordering Dr: Marlo Jiménez DO MAMMOGRAPHY - BILATERAL SCREENING REASON FOR EXAM: Female, 63 years old. Routine annual screening examination. PERTINENT HISTORY: Grandmother with breast cancer. TECHNIQUE: Digital bilateral b reast devi (3D mammographic acquisition) in the CC and MLO projections. 2-D mediolateral oblique (MLO) and craniocaudad (CC) views of both breasts were obtained. CAD: Full Field Digital Mammography with Computer Added Detection was performed. COMPARISON: Comparison is made with prior study dated November 02, 2016. FINDINGS: Breast Composition: The breasts are extreme ly dense, which lowers the sensitivity of mammography. There are no dominant masses or suspicious calcifications. Stable small bilateral axillary lymph nodes. No other significant abnormalities are id entified. There has been no significant change since the prior study. BI/SCREENING MAMM (CAD), BILAT IMPRESSION: Stable bilateral screening mammo gram. Yearly follow-up mammogram recommended. (A) ASSESSMENT CATEGORY: BIRADS Category 2: Benign. A letter regarding these results will be sent to the patient by [facility] facility within 30 days. Approximately 10% of breast cancers are not detected by mammography. A normal mammogram should not delay biopsy of a clinically suspicious abnormality. [id number] Electronicall y Signed: Jaya Mac MD at 9:12 EST Tel [phone], Service support , CC: Nina Jiménez DO Manager Digital Ad Operations: Signed 21-Jul-2018 Knee 1 or 2 Views Result: Comments: See Note; NOTES: [facility] Imaging Services [facility] [place] [address] Knee 1 or 2 Views MR#: [id number] Acct: [id number] Name: NINA AYON Rep #: [id number] : 1955 F 63 From: Clayton Newman MD PCP: Nina Jiménez DO Status: REG CLI Study: Knee 1 or 2 Views Date of Exam: 07/21/18 Exam# [id number] Ordering Dr: Nina Jiménez DO STUDY: X-RAY - LEFT KNEE REASON FOR EXAM: Female, 63 years old. Bilateral knee pain TECHNIQUE: 2 view(s) of the knee. COMPARISON: None. FINDINGS: Normal visualized distal femur. Normal visualized proximal tibia and fibula. Normal proximal tibiofibular articulation. There is severe degenerative arthrosis of the medial femorotibial compartment with severe joint space narrowing. There is severe degenerative arthrosis of the lateral femorotibial compartment with severe joint space narrowing. There is severe degenerative arthrosis of the patellofemoral articulation. There is no suprapatellar effusion. RAD/Knee 1 or 2 Views IMPRESSION: Severe tricompartmental arthritic changes. Electronically Signed: Radha Huynh at 22:52 EST , Service support , CC: Nina Jiménez DO Manager Digital Ad Operations: Signed 21-Jul-2018 Knee 1 or 2 Views Result: Comments: See Note; NOTES: [facility] Imaging Services [address] [place] [address] Knee 1 or 2 Views MR#: [id number] Acct: [id number] Name: NINA AYON Rep #: [id number] : 1955 F 63 From: Clayton Newman MD PCP: Tino DO,Nina Status: REG CLI Study: Knee 1 or 2 Views Date of Exam: 07/21/18 Exam# [id number] Ordering Dr: Nina Jiménez DO STUDY: X-RAY - RIGHT KNEE REASON FOR EXAM: Female, 63 years old. Bilateral knee pain TECHNIQUE: 2 view(s) of the knee. COMPARISON: None. FINDINGS: Normal visualized distal femur . Normal visualized proximal tibia and fibula. Normal proximal tibiofibular articulation. There is severe degenerative arthrosis of the medial femorotibial compartment with severe joint space narrowing . There is severe degenerative arthrosis of the lateral femorotibial compartment with severe joint space narrowing. There is severe degenerative arthrosis of the patellofemoral articulation. There is n o suprapatellar effusion. 0080 RAD/Knee 1 or 2 Views IMPRESSION: Severe tricompartmental degenerative changes. Electronically Signed: Clayton Moise i, MD at 22:53 EST , Service support , CC: Nina Jiménez DO Manager Digital Ad Operations: Signed 22-Apr-2018 12 Lead Electrocardiogram Result: Comments: See Note; NOTES: [facility] Cardiovascular Services [address] [place] [address] 12 Lead EKG 04/19/18 1456 MR#: [id number] Acct: [id number] Name: GABONINAPUMA Craig ep #: [id number] : 1955 62 From: Bright Peng MD [...] Borderline ECG Confirmed by BRIGHT PENG ([id number]), society editor OBDULIO PURDY ([id number]) on 04/22/2018 1:27:45 PM Referred By: JOHN Confirmed By: BRIGHT PENG 04/22/18 1327 Date Bright Peng MD CC: Nina Jiménez DO; Cedric Sylvester MD Signed 19-Apr-2018 Emergency Department Summary Result: Comments: See Note; NOTES: [facility] Medical Records Department [address] [facility] [place] [address] Emergency Department Summary 04/19/18 1653 MR#: [id number] Acct: [id number] Name: NINA AYON Rep #: [id number] : 1955 62 From: Cedric Sylvester MD [...] pleuritic component This note was generated with SyndicateRoom dictation software. It may contain incorrect words, [...] your Primary Care Provider. Call [facility] ([phone]) or report to the closest Emergency Room. Call 911 if necessary. 04/19/18 1701 <Electronically signed by Cedric Sylvester MD> Date Cedric Sylvester MD Cosig ner Signature (If Indicated): Date CC: Nina Jiménez DO 19-Apr-2018 Chest 1 View (Portable) Result: Comments: See Note; NOTES: [facility] Imaging Services [address] [place] [address] Chest 1 View (Portable) MR#: [id number] Acct: [id number] Name: NINA AYON Rep #: [id number] : 1955 F 62 From: Dolly Hardy MD PCP: Nina Jiménez DO Status: PRE ER Study: Chest 1 View (Portable) Date of Exam: 04/19/18 Exam# [id number] Ordering Dr: Cedric Sylvester MD STUDY: X-RAY [...] CC: Nina Jiménez DO; Cedric Sylvester MD Manager Digital Ad Operations: Signed 10-Feb-2018 Cardiology Visit Report Result: Comments: See Note; NOTES: [address] [place] [address] OFFICE VISIT Date of Service: 02/10/18 MR#: [id number] Acct: [id number] Name: NINA AYON Rep #: [id number] : 1955 Provider: KATHY Snider Age/Sex: 62/F Location: [facility] Status: Signed HPI HPI Details: NINA [...] QDAY #30 tab 02/10/18 [Rx Confirmed 02/10/18] [facility] Medical History Abnormal stre ss test (Acute) [...] underwent a transthoracic echocardiogram on 11/07/2016 at [facility]. The results are as noted below. [...] will not make any medication regimen c hanges. 3. Hyperlipidemia, unspecified hyperlipidemia type E78.5 Plan [...] We will continue to monitor this. 7. manager long term care (current) use of anticoagulants Z79.01 Plan If [...] (valve) insufficiency I36.1 Paroxysmal atrial fibrillation I48.0 manager long term care (current) use of anticoagulants Z79.01 Anxiety F41.9 Coding Level of Care Code Off v is,est,level 3 Diagnoses Abnormal stress test R94.39 Essential hypertension I10 Hyperlipidemia, unspecified hyperlipidemia type E78.5 Nonrheumatic mitral valve regurgitation I34.0 Nonrheumatic tricuspi d (valve) insufficiency I36.1 Paroxysmal atrial fibrillation I48.0 shelter (current) use of anticoagulants Z79.01 Anxiety F41.9 02/10/18 1506 <Electronically signed by Dusty MORALES& #62; Date Dusty Snider NP-C Cosigner Signature: Date (if applicable) CC: Nina Jiménez DO 10-Feb-2018 Chest PA and Lateral Result: Comments: See Note; NOTES: [facility] Imaging Services [address] [place] [address] Chest PA and Lateral MR#: [id number] Acct: [id number] Name: GABONINA Natasha Rep #: [id number] : 1955 F 62 From: Leslye Sue MD PCP: Nina Jiménez DO Status: REG CLI Study: Chest PA and Lateral Date of Exam: 02/10/18 Exam# [id number] Ordering Dr: Haile Mckee MD STUDY: X-RA [...] CC: Nina Jiménez DO; Haile Mckee MD Manager Digital Ad Operations: Signed 04-Feb-2018 Stress Report Result: Comments: See Note; NOTES: [facility] Cardiovascular Services [address] [place] [address] MR#: [id number] Acct: [id number] Name: NINA AYON Rep #: [id number] : 62 From: Haile Mckee MD Primary [...] and occasional PVCs during recovery. The functional [place] was considered average. There was no [...] %. Thi s note was generated with WAYNation software. It may contain incorrect words, spelling, and punctuation that were not noted in checking the note before signing. 02/04/18 1405 <Electron icadiane signed by Haile Mckee MD> Date Haile Mckee MD CC: Nina Jiménez DO; Haile Mckee MD Date Dictated: 02/04/18 1354 Date Transcribed: 02/04/181353 Manager Digital Ad Operations: PM Signed 09-Jan-2018 Cardiology Visit Report Result: Comments: See Note; NOTES: [facility] [address] [place] [address] OFFICE VISIT Date of Service: 01/09/18 MR#: [id number] Acct: [id number] Name: NINA AYON Rep #: [id number] : 1955 Provider: Haile Mckee MD Age/Sex: 62/F Location: [facility] Status: Signed HPI HPI Details: NINA [...] PO QDAY tab 01/09/18 [History Confirmed 01/09/18] [facility] Medical History Hyperlipidemia (Ch ronic) Hypertension (Chronic) Nonrheumatic mitral valve regurgitation (Chronic) Nonrheumatic tricuspid (valve) insufficiency (Chronic) Paroxysmal atrial fibrillation (Acute) manager long term care (current) use of a nticoagulants (Chronic) GERD [...] underwent a transthoracic echocardiogram on 11/07/2016 at [facility]. The results are as noted below. [...] management and follow- up. Orders Orders: 7. shelter current use of anticoagulant Z79.01 Plan Again [...] Essential hypertension I10 Hypertension type: essential hypertension manager long term care current use of anticoagulant Z79.01 Coding Level of Care Code Off vis,est,level 4 Diagnoses Chest pain, unspecified type R07.9 Chest pain type: unspecified Paroxysmal atrial fibrillation I48.0 Nonrheumatic mitral valve insufficiency I34.0 Non-rheumatic tricuspid valve insufficiency I36.1 Hyper lipidemia, unspecified hyperlipidemia type E78.5 Hyperlipidemia type: unspecified Essential hypertension I10 Hypertension type: essential hypertension shelter current use of anticoagulant Z79.01 1103 <Electronically signed by Haile Mckee MD> Date Haile Mckee MD Cosigner Signature: Date (if applicable) CC: Nina Jiménez DO 09-Jan-2018 12 Lead EKG performed by RACHNA Result: Comments: See Note; NOTES: [facility] [address] [place] [address] 12 Lead EKG performed by RACHNA 01/09/18 1025 MR#: [id number] Acct: [id number] Name: NINA AYON Rep #: [id number] : 1955 62 From: Haile Mckee MD Attending Dr: Haile Mckee MD Status: DEP [facility] Ordering Dr: Haile Mckee MD Date: 01/09/18 Location: [facility] Sex: F C Admitted : BMS/12 Lead EKG performed by [facility] ECG Report Interpretation Sinus Rhythm - occasional ectopic ventricular beat Electronically signed on 01/09/2018 at 12:2 4 by Haile Mckee 01/09/18 1227 Date Haile Mckee MD CC: Nina Jiménez DO Date Dictated: 01/09/18 1025 Date Transcribed: 01/09/18 1025 Manager Digital Ad Operations: PM Signed 09-Aug-2017 Abdomen/Pelvis WITH Contrast Result: Comments: See Note; NOTES: [facility] Imaging Services [address] [place] [address] Abdomen/Pelvis WITH Contrast MR#: [id number] Acct: [id number] Name: NINA AYON Rep # : [id number] : 1955 F 62 From: Ganga Argueta PCP: Nina Jiménez DO Status: REG CLI Study: Abdomen/Pelvis WITH Contrast Date of Exam: 08/09/17 Exam# [id number] Ordering Dr: Nina Jiménez DO STUDY: CT [...] of the lumbar spine. ORDE R #: [id number] CT/Abdomen/Pelvis WITH Contrast IMPRESSION: No acute findings in the abdomen or pelvis. Normal appendix. No hydronephrosis or urinary tract stones. No evidence of bowel obstruction. M ild sigmoid colon diverticulosis. Moderate size hiatal hernia. Electronically Signed: Ganga Argueta MD at 8:11 EST , Service support , CC: Nina Jiménez DO Manager Digital Ad Operations: Signed 07-Nov-2016 Echocardiogram Complete Result: Comments: See Note; NOTES: [facility] Cardiovascular Services [address] [place] [address] Echo Complete 11/07/16 1027 MR#: [id number] Acct: [id number] Name: GABONINA Natasha Rep #: [id number] : 1955 61 From: Haile Mckee MD Attending Dr: Sanam Coronel NP Status: REG I Ordering Dr: Sanam Coronel NP-Rishabh Date: 11/07/16 Location: [facility] Sex: F C Admitted: [place] son For Study: Afib Procedure This was [...] Referring Physician: Nina Jiménez Performed By: Aide Snider RDCS, RVT 11/07/16 1734 Date Haile Mckee MD CC: Sanam Coronel HEAD OF DIGITAL; Nina Tino ALONSO Date Dictated: 11/07/16 1027 Date Transcribed: 11/07/16 1734 Manager Digital Ad Operations: Signed 02-Nov-2016 SCREENING MAMM (CAD), BILAT Result: Comments: See Note; NOTES: [facility] Imaging Services [address] [place] [address] Verdana 4d SCREENING MAMM (CAD), BILAT MR#: [id number] Acct: [id number] Name: DARÍO AYON Rep #: [id number] : 1955 F 61 From: Jaya Mac MD PCP: Nina Jiménez DO Status: REG CLI Study: SCREENING MAMM (CAD), BILAT Date of Exam: 11/02/16 Exam# [id number] Ordering Dr: Nina Kingsley DO MAMMOGRAPHY - [...] will be sent to the patient by [facility] facility within 30 days. Approximately 10% of breast cancers are not detected by mammography. A normal mammogram should not delay biopsy of a clinically suspicious abnormality. [id number] Electronicall y Signed: Jaya Mac MD at 8:27 EDT Tel [phone], Service support [phone], CC: Nina Jiménez DO Manager Digital Ad Operations: Signed 04-Jul-2016 Operative Report Result: Comments: See Note; NOTES: [facility] Medical Records Department [address] [place] [address] Operative Report MR#: [id number] Acct: [id number] Name: NINA AYON Rep #: [id number] : 1955 61 From: Juan Covington MD PCP: Nina Jiménez DO Status: [facility] DATE OF SERVICE: 07/03/2016 DATE OF [...] MD Primary Care Physician T: NTS JOB: [id number] 07/04/16 0615 <Electronically signed by Juan Covington MD> Date Juan Covington MD Cosigner Signature (If Indicated): Date CC: Juan Covington MD; Nina Jiménez DO; Haile Mckee MD Date Dictated: 07/03/161103 Date Transcribed: 07/03/161103 Manager Digital Ad Operations: Signed 03-Jul-2016 Operative Report Result: Comments: See Note; NOTES: [facility] Medical Records Department [address] [facility] [place] [address] Operative Report 07/03/16 1642 MR#: [id number] Acct: [id number] Name: DARÍO AYON Rep #: [id number] : 1955 61 From: Haile Mckee MD PCP: Nina Jiménez DO Status: [facility] Y Location: [facility] Problem List (1) Atrial fibrillation Status: [...] complica tions This note was generated with BugHerd software. It may contain incorrect words, spelling, and punctuation that were not noted in checking the note before signing. 07/03/16 1644 &#6 0;Electronically signed by Haile Mckee MD> Date Haile Mckee MD CC: Nina Jiménez DO; Haile Mckee MD Signed 03-Jul-2016 Echo Transesophageal (KATHY) Result: Comments: See Note; NOTES: [facility] Cardiovascular Services [address] [place] [address] Echo Transesophageal (KATHY) 07/03/16 0947 MR#: [id number] Acct: [id number] Name: NINA LIMA Rep #: [id number] : 1955 61 From: Haile Mckee MD Attending Dr: Haile Mckee MD Status: [facility] Ordering Dr: Haile Mckee MD Date: 07/03/16 Location: [facility] Sex: F C Admitted: Reason For Study: AFIB Medication KATHY probe passed with minimal difficulty. Cetacaine Topical [place] given X3 orally. Versed 2 mg given [...] Physician: Nina Jiménez Performed By: Amy Sethi, RDCS, RVT E lectronically signed by: Haile Mckee MD on 07/03/2016 02:36 PM 07/03/16 1436 Date Haile Mckee MD CC: Nina Jiménez DO; Haile Mckee MD Da te Dictated: 07/03/16 0947 Date Transcribed: 07/03/161435 [employer]: Signed 28-Jun-2016 Chest PA and Lateral Result: Comments: See Note; NOTES: [facility] Imaging Services [address] [place] [address] Verdana 4d Chest PA and Lateral MR#: [id number] Acct: [id number] Name: NINA AYON Rafa ep #: [id number] : 1955 F 61 From: Johnathon Meza PCP: Nina Jiménez DO [facility] Study: Chest PA and Lateral Date of Exam: 06/28/16 Exam# [id number] Ordering Dr: Haile Mckee MD STUDY: X-RAY [...] at 6:38 EST Tel , Service support [phone], CC: Nina Jiménez DO; Haile Mckee MD [employer]: Signed 19-Jun-2016 Nuclear Stress Test - Chemical Result: Comments: See Note; NOTES: [facility] Imaging Services [address] [place] [address] Verdana 4d Nuclear Stress Test - Chemical MR#: [id number] Acct: [id number] Name: Ashlee AYON Rep #: [id number] : 1955 61 From: Haile Mckee MD [...] 60%. Haile Mckee MD T: NTS JOB: [id number] 06/19/16 1937 <Electronically signed by Haile Mckee MD> Date Haile Mckee MD CC: Nina Diop on DO; Haile Mckee MD Date Dictated: 06/19/161406 Date Transcribed: 06/19/161406 [employer]: Signed 08-Jun-2016 Echocardiogram Complete Result: Comments: See Note; NOTES: [facility] Cardiovascular Services [address] [place] [address] Echo Complete 06/08/16 1319 MR#: [id number] Acct: [id number] Name: NINA AYON Rep #: [id number] : 1955 61 From: Haile Mckee MD Attending Dr: Nina Jiménez DO Status: REG CLI Ordering Dr: Nina Jiménez DO Date: 06/08/16 Location: [facility] Sex: F C Admitted: Reas on For [...] Electronically signed by: Haile Mckee MD on 1 05:31 PM 06/08/16 173 Date Haile Mckee MD CC: Nina Jiménez DO Date Dictated: 06/08/16 1319 Date Transcribed: 06/08/161731 [employer]: Signed 06-Jul-2014 Hepatobilliary Imaging Result: Comments: See Note; NOTES: [facility] Imaging Services [address] [place] [address] Nuclear Medicine Report MR#: [id number] Acct: [id number] Name: NINA AYON Rep #: [id number] : 1955 F 59 From: Steven Cunha DO PCP: Nina Jiménez DO Status: REG CLI Study: Hepatobilliary Imaging Date of Exam: 07/06/14 Exam# [id number] Ordering Dr: Kacey Patton CL INICAL: 59-year-old [...] Cunha DO at 8:3 5 EST Tel [phone], Service support [phone], CC: Kacey Patton; Nina Jiménez DO [employer]: Signed 02-Jul-2014 Small Bowel Series Only Result: Comments: See Note; NOTES: [facility] Imaging Services [address] [place], [place] [address] Radiology Report MR#: [id number] Acct: [id number] Name: NINA AYON Rep #: [id number] : 1955 F 59 From: Jaya Mac MD PCP: Nina Jiménez DO Status: REG CLI Study: Small Bowel Series Only Date of Exam: 07/02/14 Exam# [id number] Ordering Dr: Kacey Patton CEDURE: SMALL BOWEL [...] MD 201 11/27/13 at 11:02 EST Tel [phone], Service support [phone], RAD/Small Bowel Series Only IMPRESSION: Normal small bowel series. Electronically Signed: Jaya Mac MD at 11:02 EST Tel [phone], Service support [phone], CC: Kacey Patton; Nina Jiménez DO [employer]: Signed 23-Jun-2014 Gallbladder Result: Comments: See Note; NOTES: [facility] Imaging Services [address] [place] [address] Ultrasound Report MR#: [id number] Acct: [id number] Name: NINA AYON Natasha Rep #: [id number] : 1955 F 59 From: Jaya Mac MD PCP: Nina Jiménez DO Status: REG CLI Study: Gallbladder Date of Exam: 06/23/14 Exam# [id number] Ordering Dr: Kacey Patton STUDY: ABDOMIN AL [...] Jaya Mac MD at 11:48 EST Tel [phone], Service support [phone], CC: Kacey Patton; Nina Jiménez DO [employer]: Signed Immunization Name Dates Details Influenza (3 years and up) on: 29-Jul-2008 Pneumococcal (2 years and up) on: 14-Nov-2015 Comments: Site: Deltoid (Left) Lot #: [id number] Pneumococcal (2 years and up) on: 29-Jul-2008 Social History Name Dates Details Tobacco use: Never smoker. Status: Active Smoking Status Name Dates Details Never smoker Vital Signs Date Test Result Details 59-Mxo-833882:00 Comments: recheck bp 128/84 Pulse 76 /min Comments: Pattern: Regular Respiration Rate 18 /min Comments: Pattern: Unlabored O2 SAT 97 % Comments: Room air BP Systolic 140 mm[Hg] Comments: Patient Position: Sitting; Cuff Location: Left Arm; Cuff Size: Large BP Diastolic 90 mm[Hg] Comments: Patient Position: Sitting; Cuff Location: Left Arm; Cuff Size: Large Weight 247 lb Height 67 in Body Mass Index Calculated 38.69 kg/m2 Body Surface Area Calculated 2.21 m2 :07 Temperature 97.2 f Comments: Method: Temporal Pulse [...] kg/m2 Body Surface Area Calculated 2.21 m2 :41 Temperature 97.9 f Comments: Method: Temporal Pulse [...] kg/m2 Body Surface Area Calculated 2.19 m2 0-Nxf-625538:32 Temperature 97.6 f Comments: Method: Temporal Pulse [...] kg/m2 Body Surface Area Calculated 2.13 m2 69-Lld-614493:42 Temperature 98.4 f Comments: Method: Oral Pulse [...] 0.00 cm Results Date Description Value Details 36-Huz-288548:10 Microscopic Examination Comments: PATIENT WAS FASTINGPERFORMED BY: BN [facility] Puvpzmkuyz0926 [facility] [id number] BY: CB [facility] Jbonvm8467 [facility] [id number] Bacteria Few (Normal) Mucus Threads Present (Normal) Epithelial Cells (non renal) 0-10 {/hpf} (Normal) Range: 0 - 10 RBC 0-2 {/hpf} (Normal) Range: 0 - 2 WBC 11-30 {/hpf} (Abnormal) Range: 0 - 5 11-Vxn-616481:08 HGB A1C (73258) Comments: PATIENT WAS FASTINGPERFORMED BY: [facility] Naxdtd5711 [address] [id number] Hemoglobin A1c 6.5 % (Abnormal) Range: 4.8-5.6 Comments: . Prediabetes: 5.7 - 6.4 Diabetes: >6.4 Glycemic control for adults with diabetes: <7.0 :39 Lipase Comments: [facility] [address] [place], [place], [address] LIPASE 127 U/L (Normal) Range: 73-393 6-Tof-776482:39 Liver Profile Comments: [facility] [address] [place], [address] D BILI 0.07 mg/dL (Normal) Range: 0.00-0.30 T BILI 0.30 mg/dL (Normal) Range: 0.20-1.00 ALT 37 U/L (Normal) Range: 13-56 ALK P 88 U/L (Normal) Range: 45-117 AST 30 U/L (Normal) Range: 15-37 GLOB 3.6 g/dL (Normal) Range: 2.2-4.2 ALB 3.9 g/dL (Normal) Range: 3.2-5.0 T PROT 7.5 g/dL (Normal) Range: 6.4-8.2 3-Oji-912295:10 Basic Metabolic Profile (BMP) Comments: [facility] [address] [place], [place], [address] GAP 9 (Normal) Range: 5-15 CO2 26.0 [...] A.D.A. criteria.Please note revised GLUCOSE reference range pkddrozrj18/02/2018. 5-Dwb-693484:10 CBC W/Diff, Automated Comments: [facility] [address] [place], [place], [address] Absolute Lymph 1.31 {X10_3/ul} (Normal) Range: 0.83-4.51 [...] Range: 4.4-11.0 :10 Prothrombin Time w/INR Comments: [facility] [address] [place], [place], [address] INR 1.5 (Normal) PROTIME 17.9 s (Abnormal) Range: 11.7-14.9 0-Btx-736837:10 Troponin-I Comments: [facility] [address] [place], [place], [address] TROPONIN-I < 0.015 ng/mL (Normal) Comments: TROPONIN-I EXPECTED VALUES <0.045 Negative 0.045 - 0.590 Consistent with Cardiac Damage > OR = 0.600 Critical Value Not every elevated troponin is indicative of KS. T hesevalues should be used with clinical judgement in examiningthe patient's clinical picture for diagnosis. To establisha diagnosis of KS versus myocardial injury, there must be ademonstrated rise and/ or fall in the troponin values, inaddition to ischemic symptoms, EKG changes, new regionalwall motion abnormality, and/or angiographical evidence. PLEASE NOTE: REFERENCE RANGES EDITED 12/30/1710-Feb-201865-Fzz-635533:44 Basic Metabolic Profile (BMP) Comments: [facility] [address] [place], [place], [address] GAP 8 (Normal) Range: 5-15 CO2 28.0 [...] A.D.A. criteria.Please note revised GLUCOSE reference range gnejjxvch30/02/2018. 41-Xzi-977358:44 CBC-Complete Blood Cnt No Diff Comments: [facility] [address] [place], [place], [address] MPV 11.4 fL (Normal) Range: 6.2-12.0 PLT [...] 4.2-5.4 WBC 6.2 K/mm3 (Normal) Range: 4.4-11.0 96-Vvq-722201:44 Partial Thromboplast Time Comments: [facility] [address] [place], [place], [address] PTT 37.7 s (Abnormal) Range: 24.1-36.2 91-Iof-027595:44 Prothrombin Time w/INR Comments: [facility] [address] [place], [id number] INR 1.8 (Normal) PROTIME 21.0 s (Abnormal) Range: 11.7-14.9 02-Ooe-929844:10 TSH (98913) Comments: PATIENT WAS FASTINGPERFORMED BY: [facility] [id number] BY: CB [facility] Wyqbnf1742 [facility] [id number] TSH 1.640 {uIU/mL} (Normal) Range: 0.450-4.500 53-Gjn-190618:10 URINALYSIS, W/ MICRO Comments: PATIENT WAS FASTINGPERFORMED BY: [address] [id number] BY: [address] [id number] (21056) Microscopic Examination See below: (Normal) Comments: Microscopic was indicated and was performed. Nitrite, Urine Negative (Normal) Urobilinogen,Semi-Qn 0.2 mg/dL (Normal) Range: 0.2-1.0 Bilirubin Negative (Normal) Occult Blood Negative (Normal) Ketones Negative (Normal) Glucose Negative (Normal) Protein 1+ (Abnormal) WBC Esterase 2+ (Abnormal) Appearance Clear (Normal) Urine-Color Yellow (Normal) pH 8.5 (Abnormal) Range: 5.0-7.5 Specific [place] 1.025 (Normal) Range: 1.005-1.030 75-Gyn-760075:10 MICROALBUMIN: CREATININE Comments: PATIENT WAS FASTINGPERFORMED BY: [address] [id number] BY: [place] [address] [facility] [id number] RATIO (18454) AND (81858) Alb/Creat Ratio 6.4 {mg/g_creat} (Normal) Range: 0.0-30.0 Comments: Normal: 0.0 - 30.0 Albuminuria: 31.0 - 300.0 Clinical albuminuria: >300.0 Albumin, Urine 11.1 ug/mL (Normal) Creatinine, Urine 173.1 mg/dL (Normal) 62-Wpg-573094:10 METABOLIC PANEL, Comments: PATIENT WAS FASTINGPERFORMED BY: [address] [id number] BY: [place] [address]9470 [facility] [id number] COMPREHENSIVE (87593) ALT (SGPT) 21 [iU]/L (Normal) Range: 0-32 AST (SGOT) 17 [iU]/L (Normal) Range: 0-40 Alkaline Phosphatase 84 [iU]/L (Normal) Range: 39-117 Bilirubin, Total 0.5 mg/dL (Normal) Range: 0.0-1.2 A/G Ratio 1.4 (Normal) Range: 1.2-2.2 Globulin, Total 2.9 g/dL (Normal) Range: 1.5-4.5 Albumin 4.2 g/dL (Normal) Range: 3.6-4.8 Protein, Total 7.1 g/dL (Normal) Range: 6.0-8.5 Calcium 9.4 mg/dL (Normal) Range: 8.7-10.3 Carbon Dioxide, Total 26 mmol/L (Normal) Range: 20-29 Chloride 100 mmol/L (Normal) Range: 96-106 Potassium 4.5 mmol/L (Normal) Range: 3.5-5.2 Sodium 139 mmol/L (Normal) Range: 134-144 BUN/Creatinine Ratio 17 (Normal) Range: 12-28 eGFR If Africn Am 109 mL/min/1.73 (Normal) eGFR If NonAfricn Am 94 mL/min/1.73 (Normal) Creatinine 0.69 mg/dL (Normal) Range: 0.57-1.00 BUN 12 mg/dL (Normal) Range: 8-27 Glucose 100 mg/dL (Abnormal) Range: 65-99 46-Wuv-208879:10 LIPOPROTEIN, BLD, BY NMR Comments: PATIENT WAS FASTINGPERFORMED BY: BN [facility] [address] [id number] BY: CB [facility] Fyfbpa3419 [facility] [id number] (18188) LP-IR Score 32 (Normal) Comments: INSULIN RESISTANCE MARKER <--Insulin Sensitive Insulin Resistant--> Percentile in Reference PopulationInsulin Resistance ScoreLP-IR Score Low 25th 50th 75th High <27 27 45 63 >63LP-IR Score is inaccurate if patient is non-fasting. .The LP-IR score is a laboratory developed i ndex that has beenassociated with insulin resistance and diabetes risk and should beused as one component of a physician's clinical assessment. TheLP-IR score listed above has not been cleared by the [place] Food andDrug Administration. LDL Size 21.1 nm (Normal) Comments: INTERPRETATIVE INFORMATION PARTICLE CONCENTRATION AND SIZE <--Lower CVD Risk Highe r CVD Risk--> LDL AND HDL PARTICLES Percentile in Reference Population HDL-P (total) High 75th 50th 25th Low >34.9 34.9 30.5 26.7 <26.7 . Small LDL-P Low 25th 50th 75th High <117 117 527 839 >839 . LDL Size <-Large (Pattern A)-> <-Small (Pattern B)-> 23.0 20.6 20.5 19.0 Small LDL-P and LDL Size are associated with CVD risk, but not afterLDL-P is taken into account. .These assays were developed and their performance characteristicsdetermined by [employer]. These assays have not been cleared by [employer] Food and Drug Administration. The clinical utility of theselaboratory values have not been fully established. Small LDL-P 532 nmol/L (Abnormal) HDL-P (Total) 24.9 umol/L (Abnormal) Cholesterol, Total 185 mg/dL (Normal) Range: 100-199 Triglycerides 108 mg/dL (Normal) Range: 0-149 HDL-C 44 mg/dL (Normal) LDL-C 119 mg/dL (Abnormal) Range: 0-99 Comments: . Optimal < 100 Above optimal 100 - 129 Borderline 1 30 - 159 High 160 - 189 Very high > 189 .LDL-C is inaccurate if patient is non-fasting. LDL-P 1506 nmol/L (Abnormal) Comments: Low < 1000 Moderate 1000 - 1299 Borderline-High 1300 - 1599 High 1600 - 2000 Very High > 2000 47-Hgu-315532:10 CBC W/AUTO DIFF WBC Comments: PATIENT WAS FASTINGPERFORMED BY: BN [facility] Vhdmnhytyi6772 [facility] [id number] BY: CB [facility] Nesevr7844 K[facility] [id number] (94431) Immature Grans (Abs) 0.0 {x10E3/uL} (Normal) Range: 0.0-0.1 Immature Granulocytes 0 % (Normal) Baso (Absolute) 0.0 {x10E3/uL} (Normal) Range: 0.0-0.2 Eos (Absolute) 0.1 {x10E3/uL} (Normal) Range: 0.0-0.4 Monocytes(Absolute) 0.4 {x10E3/uL} (Normal) Range: 0.1-0.9 Lymphs (Absolute) 1.1 {x10E3/uL} (Normal) Range: 0.7-3.1 Neutrophils (Absolute) 4.2 {x10E3/uL} (Normal) Range: 1.4-7.0 Basos 0 % (Normal) Eos 2 % (Normal) Monocytes 7 % (Normal) Lymphs 19 % (Normal) Neutrophils 72 % (Normal) Platelets 271 {x10E3/uL} (Normal) Range: 150-379 RDW 14.3 % (Normal) Range: 12.3-15.4 MCHC 32.1 g/dL (Normal) Range: 31.5-35.7 MCH 28.5 pg (Normal) Range: 26.6-33.0 MCV 89 fL (Normal) Range: 79-97 Hematocrit 39.3 % (Normal) Range: 34.0-46.6 Hemoglobin 12.6 g/dL (Normal) Range: 11.1-15.9 RBC 4.42 {x10E6/uL} (Normal) Range: 3.77-5.28 WBC 5.9 {x10E3/uL} (Normal) Range: 3.4-10.8 7-Vfd-116865:37 Urinalysis, Office (14832) UA - LEUKOCYTE ESTERASE Moderate (Normal) UA - NITRITE Negative (Normal) URINE UROBILINGN RUBEN TIMED 2 mg/dL (Normal) UA - PROTEIN Negative mg/dL (Normal) UA - PH 7.0 (Normal) UA - BLOOD Hemolyzed Trace (Normal) UA - SPECIFIC GRAVITY 1.010 (Normal) UA - KETONES Negative mg/dL (Normal) UA - BILIRUBIN Negative (Normal) UA - GLUCOSE Negative (Normal) 5-Jci-114569:33 Blood Glucose , Office (32789) Blood Glucose , Office 131 (Normal) 4-Mkh-053936:33 HgA1C , Office (86487) HgA1C , Office 5.9 % (Normal) Range: 4.6 - 7.1 9-Pta-771091:22 H-Pylori IGA,IGG,IGM (17821) Comments: PATIENT NOT FASTINGPERFORMED BY: [facility]6370 [facility] [id number] H pylori, IgM Abs <9.0 {units} (Normal) Range: 0.0-8.9 Comments: Negative <9.0 Equivocal 9.0 - 11.0 Positive >11.0 .This test was developed and its performance characteristicsdetermined by [facility]. It has not been cleared or approvedby the Food and Drug Administration. H. pylori, IgA Abs <9.0 {units} (Normal) Range: 0.0-8.9 Comments: Negative <9.0 Equivocal 9.0 - 11.0 Positive >11.0 H. pylori, IgG Abs <0.9 U/mL (Normal) Range: 0.0-0.8 Comments: Negative <0.9 Indeterminate 0.9 - 1.0 Positive >1.0 Effective August the reference interval will be changing to: Negative <0.8 Equivocal 0.8 Positive >0.8 5-Gas-251855:19 Microscopic Examination Comments: PATIENT WAS FASTINGPERFORMED BY: [facility]6370 [facility] [id number] Bacteria Few (Normal) Mucus Threads Present (Normal) Epithelial Cells (non renal) >10 {/hpf} (Abnormal) Range: 0 - 10 RBC 3-10 {/hpf} (Abnormal) Range: 0 - 2 WBC >30 {/hpf} (Abnormal) Range: 0 - 5 1-Svj-262243:21 Basic Metabolic Profile (BMP) Comments: Order Date: 05/08/17Order Info: 0667-1 - *BMPComments: Reason:[facility] [address] [place], [address] GAP 5 (Normal) Range: 5-15 CO2 31.0 [...] 7-18 GLU 93 mg/dL (Normal) Range: 70-110 41-Low-729567:34 HGB A1C (81724) Comments: PATIENT WAS FASTINGPERFORMED BY: [employer] [facility] [id number] Hemoglobin A1c 6.5 % (Abnormal) Range: 4.8-5.6 Comments: . Pre-diabetes: 5.7 - 6.4 Diabetes: >6.4 Glycemic control for adults with diabetes: <7.0 13-Neo-962352:34 MICROALBUMIN: CREATININE RATIO Comments: PATIENT WAS FASTINGPERFORMED BY: [employer] [facility] [id number] (83901) AND (97068) Microalb/Creat Ratio <13.7 {mg/g_creat} (Normal) Range: 0.0-30.0 Microalbumin, Urine <3.0 ug/mL (Normal) Creatinine, Urine 21.9 mg/dL (Normal) 83-Fyc-538115:34 TSH (20651) Comments: PATIENT WAS FASTINGPERFORMED BY: [employer] [facility] [id number] TSH 2.420 {uIU/mL} (Normal) Range: 0.450-4.500 33-Vnl-818811:34 Lipid Panel (76998) Comments: PATIENT WAS FASTINGPERFORMED BY: [employer]70 [facility] [id number] LDL/HDL Ratio 1.9 {ratio_units} (Normal) Range: 0.0-3.2 Comments: LDL/HDL Ratio Men Women 1/2 Avg.Risk 1.0 1.5 Av g.Risk 3.6 3.2 2X Avg.Risk 6.2 5.0 3X Avg.Risk 8.0 6.1 LDL Cholesterol Calc 132 mg/dL (Abnormal) Range: 0-99 VLDL Cholesterol Aneesh 15 mg/dL (Normal) Range: 5-40 HDL Cholesterol 71 mg/dL (Normal) Triglycerides 73 mg/dL (Normal) Range: 0-149 Cholesterol, Total 218 mg/dL (Abnormal) Range: 100-199 :34 Metabolic Panel, Comprehensive Comments: PATIENT WAS FASTINGPERFORMED BY: [employer]6370 [facility] [id number] (05112) ALT (SGPT) 27 [iU]/L (Normal) Range: 0-32 [...] Glucose, Serum 96 mg/dL (Normal) Range: 65-99 33-Ayu-635753:34 CBC WITH MANUAL DIFF (99859) Comments: PATIENT WAS FASTINGPERFORMED BY: [facility] CenterHjzakk4677 [facility] [id number] Immature Grans (Abs) 0.0 {x10E3/uL} (Normal) Range: [...] 7.4 {x10E3/uL} (Normal) Range: 3.4-10.8 :19 TSH (90729) Comments: PATIENT WAS FASTINGPERFORMED BY: [facility]6370 [facility] [id number] TSH 2.050 {uIU/mL} (Normal) Range: 0.450-4.500 :19 URINALYSIS, W/ MICRO (33502) Comments: PATIENT WAS FASTINGPERFORMED BY: [facility]6370 [facility] [id number] Microscopic Examination See below: (Normal) Comments: Microscopic was indicated and was performed. Nitrite, Urine Negative (Normal) Urobilinogen,Semi-Qn 0.2 mg/dL (Normal) Range: 0.2-1.0 Bilirubin Negative (Normal) Occult Blood 1+ (Abnormal) Ketones Negative (Normal) Glucose Negative (Normal) Protein Negative (Normal) WBC Esterase 3+ (Abnormal) Appearance Cloudy (Abnormal) Urine-Color Yellow (Normal) pH 7.0 (Normal) Range: 5.0-7.5 Specific [place] 1.015 (Normal) Range: 1.005-1.030 :19 MICROALBUMIN: CREATININE RATIO Comments: PATIENT WAS FASTINGPERFORMED BY: [facility] [id number] (11784) AND (54917) Microalb/Creat Ratio 9.1 {mg/g_creat} (Normal) Range: 0.0-30.0 Microalbumin, Urine 7.4 ug/mL (Normal) Creatinine, Urine 81.3 mg/dL (Normal) :19 METABOLIC PANEL, COMPREHENSIVE Comments: PATIENT WAS FASTINGPERFORMED BY: [facility]6370 [facility] [id number] (73725) ALT (SGPT) 43 [iU]/L (Abnormal) Range: 0-32 [...] Glucose, Serum 104 mg/dL (Abnormal) Range: 65-99 6-Sif-980474:19 LIPID PANEL (19878) Comments: PATIENT WAS FASTINGPERFORMED BY: [place] [id number] LDL/HDL Ratio 2.7 {ratio_units} (Normal) Range: 0.0-3.2 Comments: LDL/HDL Ratio Men Women 1/2 Avg.Risk 1.0 1.5 Av g.Risk 3.6 3.2 2X Avg.Risk 6.2 5.0 3X Avg.Risk 8.0 6.1 LDL Cholesterol Calc 145 mg/dL (Abnormal) Range: 0-99 VLDL Cholesterol Aneesh 18 mg/dL (Normal) Range: 5-40 HDL Cholesterol 53 mg/dL (Normal) Triglycerides 89 mg/dL (Normal) Range: 0-149 Cholesterol, Total 216 mg/dL (Abnormal) Range: 100-199 9-Biq-555893:19 CBC W/AUTO DIFF WBC (04136) Comments: PATIENT WAS FASTINGPERFORMED BY: [employer] [employer] [place] [id number] Immature Grans (Abs) 0.0 {x10E3/uL} (Normal) Range: [...] 3.77-5.28 WBC 5.9 {x10E3/uL} (Normal) Range: 3.4-10.8 6-Egr-611928:19 HGB A1C (94218) Comments: PATIENT WAS FASTINGPERFORMED BY: [facility] [employer]6299 [facility] [id number] Hemoglobin A1c 6.2 % (Abnormal) Range: 4.8-5.6 Comments: . Pre-diabetes: 5.7 - 6.4 Diabetes: >6.4 Glycemic control for adults with diabetes: <7.0 57-Llw-276491:19 HGB A1C (90177) Comments: PATIENT NOT FASTINGPERFORMED BY: [employer]6370 [facility] [id number] Hemoglobin A1c 6.2 % (Abnormal) Range: 4.8-5.6 Comments: . Pre-diabetes: 5.7 - 6.4 Diabetes: >6.4 Glycemic control for adults with diabetes: <7.0 :33 Basic Metabolic Profile (BMP) Comments: Order Date: 06/21/16Order Info: [id number] - *BMPOrder Date: 06/21/16Order Info: [id number] - *BMPComments: Reason:[facility] [address] [place], [address] GAP 8 (Normal) Range: 5-15 CO2 27.0 [...] 7-18 GLU 89 mg/dL (Normal) Range: 70-110 95-Nti-806193:37 Microscopic Examination Comments: PATIENT NOT FASTINGPERFORMED BY: [facility]6370 [facility] [id number] Bacteria None seen (Normal) Mucus Threads Present (Normal) Epithelial Cells (non renal) 0-10 {/hpf} (Normal) Range: 0 - 10 RBC 0-2 {/hpf} (Normal) Range: 0 - 2 WBC 0-5 {/hpf} (Normal) Range: 0 - 5 05-Qen-054360:37 URINALYSIS, W/ MICRO (07229) Comments: PATIENT NOT FASTINGPERFORMED BY: [facility] SoftwarePalisades Medical CenterKcxahp8040 [facility] [id number] Microscopic Examination See below: (Normal) Comments: Microscopic was indicated and was performed. Nitrite, Urine Negative (Normal) Urobilinogen,Semi-Qn 0.2 mg/dL (Normal) Range: 0.2-1.0 Bilirubin Negative (Normal) Occult Blood Negative (Normal) Ketones Negative (Normal) Glucose Negative (Normal) Protein Negative (Normal) WBC Esterase 2+ (Abnormal) Appearance Clear (Normal) Urine-Color Yellow (Normal) pH 8.0 (Abnormal) Range: 5.0-7.5 Specific [place] 1.011 (Normal) Range: 1.005-1.030 :37 TSH ([id number]) Comments: PATIENT NOT FASTINGPERFORMED BY: Essenza SoftwarePalisades Medical [id number] [facility] [id number] TSH 2.050 {uIU/mL} (Normal) Range: 0.450-4.500 :37 METABOLIC PANEL, COMPREHENSIVE Comments: PATIENT NOT FASTINGPERFORMED BY: Essenza SoftwarePalisades Medical [id number] [facility] [id number] ([id number]) ALT (SGPT) 31 [iU]/L (Normal) Range: 0-32 [...] Glucose, Serum 96 mg/dL (Normal) Range: 65-99 [id number] CBC W/AUTO DIFF WBC (61509) Comments: PATIENT NOT FASTINGPERFORMED BY: [facility] Fjhksx5876 [facility] [id number] Immature Grans (Abs) 0.0 {x10E3/uL} (Normal) Range: [...] (Normal) Range: 3.4-10.8 :08 HgA1C , Office (09273) HgA1C , Office 5.9 % (Normal) Range: 4.6 - 7.1 :49 HGB A1C (05889) Comments: PATIENT WAS FASTINGPERFORMED BY: [employer] Uedmya6341 [facility] [id number] Hemoglobin A1c 6.1 % (Abnormal) Range: 4.8-5.6 Comments: . Pre-diabetes: 5.7 - 6.4 Diabetes: >6.4 Glycemic control for adults with diabetes: <7.0 :49 TSH (51033) Comments: PATIENT WAS FASTINGPERFORMED BY: [employer] Higgqa9567 [facility] [id number] TSH 2.280 {uIU/mL} (Normal) Range: 0.450-4.500 :49 MICROALBUMIN: CREATININE RATIO Comments: PATIENT WAS FASTINGPERFORMED BY: [employer] Uhrcmd1054 [facility] [id number] (79458) AND (52583) Microalb/Creat Ratio <3.5 {mg/g_creat} (Normal) Range: 0.0-30.0 Microalbumin, Urine <3.0 ug/mL (Normal) Creatinine, Urine 85.4 mg/dL (Normal) :49 METABOLIC PANEL, COMPREHENSIVE Comments: PATIENT WAS FASTINGPERFORMED BY: [employer] Xavjpx5147 [facility] [id number] (17240) ALT (SGPT) 19 [iU]/L (Normal) Range: 0-32 [...] Glucose, Serum 101 mg/dL (Abnormal) Range: 65-99 2-Mnl-343373:49 LIPID PANEL (34182) Comments: PATIENT WAS FASTINGPERFORMED BY: [facility]6370 [facility] [id number] LDL/HDL Ratio 2.3 {ratio_units} (Normal) Range: 0.0-3.2 Comments: LDL/HDL Ratio Men Women 1/2 Avg.Risk 1.0 1.5 Av g.Risk 3.6 3.2 2X Avg.Risk 6.2 5.0 3X Avg.Risk 8.0 6.1 LDL Cholesterol Calc 132 mg/dL (Abnormal) Range: 0-99 VLDL Cholesterol Aneesh 10 mg/dL (Normal) Range: 5-40 HDL Cholesterol 58 mg/dL (Normal) Triglycerides 48 mg/dL (Normal) Range: 0-149 Cholesterol, Total 200 mg/dL (Abnormal) Range: 100-199 :49 CBC W/AUTO DIFF WBC (65206) Comments: PATIENT WAS FASTINGPERFORMED BY: [employer] [facility] [id number]; will review at 08/07 appt Immature Grans [...] Microscopic Examination Comments: PATIENT WAS FASTINGPERFORMED BY: [employer] SoftwareNew Sunrise Regional Treatment CenterUdoiep6302 [facility] [id number] Bacteria Few (Normal) Mucus Threads Present (Normal) Epithelial Cells (non renal) 0-10 {/hpf} (Normal) Range: 0 - 10 RBC 0-2 {/hpf} (Normal) Range: 0 - 2 WBC 0-5 {/hpf} (Normal) Range: 0 - 5 :48 Blood Glucose , Office (15683) Blood Glucose , Office 75 (Normal) :48 HgA1C , Office (20558) HgA1C , Office 6.0 % (Normal) Range: 4.6 - 7.1 :18 TSH (31384) Comments: PATIENT WAS FASTINGPERFORMED BY: [employer] [facility] [id number] TSH 1.930 {uIU/mL} (Normal) Range: 0.450-4.500 :18 URINALYSIS, W/ MICRO (31815) Comments: PATIENT WAS FASTINGPERFORMED BY: [employer] [facility] [id number] Microscopic Examination See below: (Normal) Comments: Microscopic was indicated and was performed. Nitrite, Urine Negative (Normal) Urobilinogen,Semi-Qn 0.2 mg/dL (Normal) Range: 0.2-1.0 Bilirubin Negative (Normal) Occult Blood Negative (Normal) Ketones Negative (Normal) Glucose Negative (Normal) Protein Negative (Normal) WBC Esterase 1+ (Abnormal) Appearance Clear (Normal) Urine-Color Yellow (Normal) pH 7.5 (Normal) Range: 5.0-7.5 Specific [place] 1.023 (Normal) Range: 1.005-1.030 :18 MICROALBUMIN: CREATININE RATIO Comments: PATIENT WAS FASTINGPERFORMED BY: [employer] Lqkinz2643 [facility] [id number] (79422) AND (25799) Microalb/Creat Ratio 4.2 {mg/g_creat} (Normal) Range: 0.0-30.0 Microalbumin, Urine 6.3 ug/mL (Normal) Creatinine, Urine 149.4 mg/dL (Normal) :18 METABOLIC PANEL, COMPREHENSIVE Comments: PATIENT WAS FASTINGPERFORMED BY: [employer] [facility] [id number] (72108) ALT (SGPT) 30 [iU]/L (Normal) Range: 0-32 [...] Glucose, Serum 94 mg/dL (Normal) Range: 65-99 8-Psr-684045:18 CBC W/AUTO DIFF WBC (38837) Comments: PATIENT WAS FASTINGPERFORMED BY: LabCoPalisades Medical CenterGdvxuw2799 [facility] [id number] Immature Grans (Abs) 0.0 {x10E3/uL} (Normal) Range: [...] 3.77-5.28 WBC 6.1 {x10E3/uL} (Normal) Range: 3.4-10.8 63-Xpq-783449:02 TSH (16356) Comments: PATIENT WAS FASTINGPERFORMED BY: [employer] SoftwarePalisades Medical CenterZtdefk7098 [facility] [id number] TSH 2.070 {uIU/mL} (Normal) Range: 0.450-4.500 :02 CBC W/AUTO DIFF WBC Comments: PATIENT WAS FASTINGPERFORMED BY: [employer] SoftwarePalisades Medical CenterOdefby7360 [facility] [id number] Information: [id number] (95789) Immature Grans (Abs) 0.0 {x10E3/uL} (Normal) Range: [...] 3.77-5.28 WBC 5.1 {x10E3/uL} (Normal) Range: 3.4-10.8 95-Lxq-685632:02 MICROALBUMIN: CREATININE RATIO Comments: PATIENT WAS FASTINGPERFORMED BY: [facility] Oemjmd0155 [facility] [id number] (68574) AND (40186) Microalb/Creat Ratio 4.5 {mg/g_creat} (Normal) Range: 0.0-30.0 Microalbumin, Urine 5.7 ug/mL (Normal) Range: 0.0-17.0 Creatinine, Urine 127.2 mg/dL (Normal) Range: 15.0-278.0 98-Gvo-064240:02 METABOLIC PANEL, COMPREHENSIVE Comments: PATIENT WAS FASTINGPERFORMED BY: [facility] LaboratoryPalisades Medical CenterHvdazh6472 [facility] [id number] (36357) ALT (SGPT) 20 [iU]/L (Normal) Range: 0-32 [...] Glucose, Serum 86 mg/dL (Normal) Range: 65-99 64-Psn-856326:02 LIPID PANEL (57733) Comments: PATIENT WAS FASTINGPERFORMED BY: LabCoPalisades Medical CenterWoixms9548 [facility] [id number] LDL/HDL Ratio 2.1 {ratio_units} (Normal) Range: 0.0-3.2 [...] Cholesterol, Total 203 mg/dL (Abnormal) Range: 100-199 08-Klw-207830:02 HGB A1C (29367) Comments: PATIENT WAS FASTINGPERFORMED BY: [facility]6370 [facility] [id number] Hemoglobin A1c 6.0 % (Abnormal) Range: 4.8-5.6 Comments: . Pre-diabetes: 5.7 - 6.4 Diabetes: >6.4 Glycemic control for adults with diabetes: <7.0 48-Qwy-953214:15 CULTURE, SPUTUM (82527) Comments: PERFORMED BY: [facility]6370 [facility] [id number] Information: SRC: SPUTUM Result 1 RRF (Normal) Comments: Routine respiratory jamia Lower Respiratory Culture Final report (Normal) 72-Fbo-548147:45 Rapid Flu (90376 x 2) Influenza A Ag negative (Normal) 81-Nfr-757695:50 HgA1C , Office (01292) HgA1C , Office 6.4 % (Normal) Range: 4.6 - 7.1 12-Vam-166709:50 Blood Glucose , Office (21531) Blood Glucose , Office 102 (Normal) Comments: non-fasting 4-Xne-911382:00 Urinalysis, Office (44754) UA - LEUKOCYTE ESTERASE Negative (Normal) UA - NITRITE Negative (Normal) URINE UROBILINGN RUBEN TIMED 2 mg/dL (Normal) UA - PROTEIN Negative mg/dL (Normal) UA - PH 6.5 (Normal) UA - BLOOD non-hemolyzed trace (Normal) UA - SPECIFIC GRAVITY 1.025 (Normal) UA - KETONES Negative mg/dL (Normal) UA - BILIRUBIN Negative (Normal) UA - GLUCOSE Negative (Normal) 61-Via-98943:41 Microscopic Examination Comments: PATIENT WAS FASTINGPERFORMED BY: [facility]6370 [facility] [id number] Bacteria Moderate (Abnormal) Mucus Threads Present (Normal) Epithelial Cells (non renal) >10 {/hpf} (Abnormal) Range: 0 - 10 RBC 0-2 {/hpf} (Normal) Range: 0 - 2 WBC >30 {/hpf} (Abnormal) Range: 0 - 5 9-Lgb-487530:19 HgA1C , Office (71204) HgA1C , Office 6.1 % (Normal) Range: 4.6 - 7.1 :19 Blood Glucose , Office (48020) Blood Glucose , Office 98 (Normal) :19 HgA1C , Office (01520) HgA1C , Office 5.9 % (Normal) Range: 4.6 - 7.1 :19 Blood Glucose , Office (70854) Blood Glucose , Office 97 (Normal) :55 METABOLIC PANEL, COMPREHENSIVE Comments: PATIENT NOT FASTINGPERFORMED BY: LabCoPalisades Medical CenterYnqutq7647 [facility] [id number] (93065) ALT (SGPT) 17 [iU]/L (Normal) Range: 0-32 [...] Glucose, Serum 85 mg/dL (Normal) Range: 65-99 51-Xrh-378839:55 CBC WITH MANUAL DIFF Comments: PATIENT NOT FASTINGPERFORMED BY: LabCoPalisades Medical CenterDzlxih1011 [facility] [id number] Information: [id number]; will review at 3-30 appt (76219) Immature Grans (Abs) 0.0 {x10E3/uL} (Normal) Range: [...] (Normal) Range: 3.4-10.8 :41 URINALYSIS, W/ MICRO (83028) Comments: PATIENT WAS FASTINGPERFORMED BY: LabCoPalisades Medical CenterGgxxzo3800 [facility] [id number] Microscopic Examination See below: (Normal) Comments: Microscopic was indicated and was performed. Nitrite, Urine Negative (Normal) Urobilinogen,Semi-Qn 0.2 mg/dL (Normal) Range: 0.0-1.9 Bilirubin Negative (Normal) Occult Blood Negative (Normal) Ketones Negative (Normal) Glucose Negative (Normal) Protein Negative (Normal) WBC Esterase 3+ (Abnormal) Appearance Clear (Normal) Urine-Color Yellow (Normal) pH 6.5 (Normal) Range: 5.0-7.5 Specific [place] 1.020 (Normal) Range: 1.005-1.030 :41 MICROALBUMIN: CREATININE RATIO Comments: PATIENT WAS FASTINGPERFORMED BY: [facility] [employer] [facility] HospitalSix ApartCone Health [facility] [id number] (67295) AND (14386) Microalb/Creat Ratio 9.9 {mg/g_creat} (Normal) Range: 0.0-30.0 Microalbumin, Urine 10.2 ug/mL (Normal) Range: 0.0-17.0 Creatinine, Urine 103.0 mg/dL (Normal) Range: 15.0-278.0 :41 METABOLIC PANEL, COMPREHENSIVE Comments: PATIENT WAS FASTINGPERFORMED BY: [facility] Vokrso6304 retsCloudCone Health MedCenter [facility] [id number] (34133) ALT (SGPT) 33 [iU]/L (Abnormal) Range: 0-32 [...] mg/dL (Normal) Range: 65-99 :41 LIPID PANEL (79808) Comments: PATIENT WAS FASTINGPERFORMED BY: [facility] [id number] LDL/HDL Ratio 1.8 {ratio_units} (Normal) Range: 0.0-3.2 [...] MANUAL DIFF Comments: PATIENT WAS FASTINGPERFORMED BY: [employer]70 [facility] [id number] Information: [id number] (76355) Immature Grans (Abs) 0.0 {x10E3/uL} (Normal) Range: [...] 7.1 {x10E3/uL} (Normal) Range: 3.4-10.8 :41 TSH (93802) Comments: PATIENT WAS FASTINGPERFORMED BY: LabCoPalisades Medical CenterIrohwz8056 [facility] [id number] TSH 2.910 {uIU/mL} (Normal) Range: 0.450-4.500 22-Rmv-594420:29 HEMOGLOBIN GLYCLATED (HGB Comments: PATIENT NOT FASTINGPERFORMED BY: LabCoPalisades Medical CenterDjlomz0038 [facility] [id number] Information: [id number] A1C) (77751) Hemoglobin A1c 6.1 % (Abnormal) Range: 4.8-5.6 Comments: . Increased risk for diabetes: 5.7 - 6.4 Diabetes: >6.4 Glycemic control for adults with diabetes: <7.0 :48 HgA1C , Office (14050) HgA1C , Office 9.0 % (Abnormal) Range: 4.6 - 7.1 :48 Blood Glucose , Office (19916) Blood Glucose , Office 125 (Normal) 47-Tll-215739:08 HgA1C , Office (87338) HgA1C , Office 5.8 % (Normal) Range: 4.6 - 7.1 :08 Blood Glucose , Office (60144) Blood Glucose , Office 88 (Normal) 70-Ipr-536197:26 Rapid Flu (61655 x 2) Influenza A Ag negative A and B (Normal) : HgA1C , Office (36367) HgA1C , Office 6.0 % (Normal) Range: 4.6 - 7.1 : Blood Glucose , Office (05385) Blood Glucose , Office 79 (Normal) : HgA1C , Office (92983) HgA1C , Office 6.3 % (Normal) Range: 4.6 - 7.1 :00 Blood Glucose , Office (08660) Blood Glucose , Office 99 (Normal) :46 Microscopic Examination Comments: PATIENT WAS FASTINGPERFORMED BY: [employer] [facility] [id number] Bacteria None seen (Normal) Mucus Threads Present (Normal) Epithelial Cells (non renal) 0-10 {/hpf} (Normal) Range: 0 - 10 RBC 0-3 {/hpf} (Normal) Range: 0 - 3 WBC 6-10 {/hpf} (Abnormal) Range: 0 - 5 :46 TSH (79766) Comments: PATIENT WAS FASTINGPERFORMED BY: [employer] [facility] [id number] TSH 2.400 {uIU/mL} (Normal) Range: 0.450-4.500 :46 URINALYSIS, W/ MICRO (02945) Comments: PATIENT WAS FASTINGPERFORMED BY: [employer]70 [facility] [id number] Microscopic Examination See below: (Normal) Nitrite, Urine Negative (Normal) Urobilinogen,Semi-Qn 0.2 mg/dL (Normal) Range: 0.0-1.9 Bilirubin Negative (Normal) Occult Blood Negative (Normal) Ketones Negative (Normal) Glucose Negative (Normal) Protein Trace (Normal) WBC Esterase 2+ (Abnormal) Appearance Clear (Normal) Urine-Color Yellow (Normal) pH 8.0 (Abnormal) Range: 5.0-7.5 Specific [place] 1.026 (Normal) Range: 1.005-1.030 :46 MICROALBUMIN: CREATININE RATIO Comments: PATIENT WAS FASTINGPERFORMED BY: [facility] LaboratoryNew Sunrise Regional Treatment CenterQbyygl9631 [facility] [id number] (23923) AND (82414) Microalb/Creat Ratio 2.4 {mg/g_creat} (Normal) Range: 0.0-30.0 Microalbumin, Urine 3.7 ug/mL (Normal) Range: 0.0-17.0 Creatinine, Urine 151.9 mg/dL (Normal) Range: 15.0-278.0 :46 METABOLIC PANEL, COMPREHENSIVE Comments: PATIENT WAS FASTINGPERFORMED BY: [employer]6370 [facility] [id number] (29922) ALT (SGPT) 29 [iU]/L (Normal) Range: 0-32 [...] mg/dL (Abnormal) Range: 65-99 :46 LIPID PANEL (04298) Comments: PATIENT WAS FASTINGPERFORMED BY: [employer] SoftwarePalisades Medical CenterHyvgoa7679 [facility] [id number] LDL/HDL Ratio 1.8 {ratio_units} (Normal) Range: 0.0-3.2 [...] MANUAL DIFF Comments: PATIENT WAS FASTINGPERFORMED BY: M[employer]up[employer] Lhmdin0072 [facility] [id number] Information: SRC: URINE (31976) Immature Grans (Abs) 0.0 {x10E3/uL} (Normal) Range: [...] {x10E3/uL} (Normal) Range: 4.0-10.5 :47 CCP ANTIBODY (29532) Comments: PATIENT WAS FASTINGPERFORMED BY: [facility] [employer] [facility] [id number] BY: [address] [id number] CCP Antibodies IgG/IgA 22 {units} (Abnormal) Range: 0-19 Comments: Negative <20 Weak positive 20 - 39 Moderate positive 40 - 59 Strong positive >59 :47 SED RATE ERYTHROCYTE Comments: PATIENT WAS FASTINGPERFORMED BY: [employer]70 [facility] [id number] BY: [address] [id number] (16934) Sedimentation Rate-Westergren 3 mm/h (Normal) Range: 0-40 :47 C-REACTIVE PROTEIN (34588) Comments: PATIENT WAS FASTINGPERFORMED BY: [facility] LaboratoryPalisades Medical CenterUnomte3833 [facility] [id number] BY: [address] [id number] C-Reactive Protein, Quant 6.5 mg/L (Abnormal) Range: 0.0-4.9 :47 RHEUMATOID FACTOR-QUANT Comments: PATIENT WAS FASTINGPERFORMED BY: [facility] Kjtxbr9878 [facility] [id number] BY: [address] [id number] (40201) RA Latex Turbid. 10.2 {IU/mL} (Normal) Range: 0.0-13.9 :47 YAMIL (ANTINUCLEAR ANTIBODY) Comments: PATIENT WAS FASTINGPERFORMED BY: [place] 0349470 [facility] [id number] BY: [address] [id number] (20090) YAMIL Direct Negative (Normal) :35 HgA1C , Office (51177) HgA1C , Office 6.8 % (Normal) Range: 4.6 - 7.1 :35 Blood Glucose , Office (47766) Blood Glucose , Office 89 (Normal) Comments: PATIENT DID ON HER OWN MACHINE :56 HgA1C , Office (51983) HgA1C , Office 6.0 % (Normal) Range: 4.6 - 7.1 :56 Blood Glucose , Office (87702) Blood Glucose , Office 100 (Normal) 88-Cit-956418:45 Microscopic Examination Comments: PATIENT WAS FASTINGPERFORMED BY: [place] 0349470 [facility] [id number] Bacteria Many (Abnormal) Mucus Threads Present (Normal) Epithelial Cells (non renal) >10 {/hpf} (Abnormal) Range: 0 - 10 RBC 0-3 {/hpf} (Normal) Range: 0 - 3 WBC 11-30 {/hpf} (Abnormal) Range: 0 - 5 :02 HgA1C , Office (68585) HgA1C , Office 6.1 % (Normal) Range: 4.6 - 7.1 :02 Blood Glucose , Office (82197) Blood Glucose , Office 96 (Normal) 78-Jus-538643:41 CBC With Differential/Platelet Comments: PATIENT WAS FASTINGPERFORMED BY: [place] 0349470 [facility] [id number] Immature Grans (Abs) 0.0 {x10E3/uL} (Normal) Range: [...] 3.80-5.10 WBC 5.5 {x10E3/uL} (Normal) Range: 4.0-10.5 90-Oke-998349:41 Comp. Metabolic Panel (14) Comments: PATIENT WAS FASTINGPERFORMED BY: LabCoPalisades Medical CenterQmybpu3661 [facility] [id number] ALT (SGPT) 22 [iU]/L (Normal) Range: 0-40 [...] Glucose, Serum 92 mg/dL (Normal) Range: 65-99 65-Hrj-200135:41 Lipid Panel With LDL/HDL Comments: PATIENT WAS FASTINGPERFORMED BY: [facility] Jxehaz5917 [facility] [id number] Ratio LDL/HDL Ratio 1.7 {ratio_units} (Normal) Range: 0.0-3.2 LDL Cholesterol Calc 118 mg/dL (Abnormal) Range: 0-99 VLDL Cholesterol Aneesh 13 mg/dL (Normal) Range: 5-40 HDL Cholesterol 71 mg/dL (Normal) Comments: According to ATP-III Guidelines, HDL-C >59 mg/dL is considered anegative risk factor for CHD. Triglycerides 65 mg/dL (Normal) Range: 0-149 Cholesterol, Total 202 mg/dL (Abnormal) Range: 100-199 74-Gtf-231283:41 Microalb/Creat Ratio, Randm Ur Comments: PATIENT WAS FASTINGPERFORMED BY: [address] [id number] Microalb/Creat Ratio 5.5 {mg/g_creat} (Normal) Range: 0.0-30.0 Microalbumin, Urine 9.9 ug/mL (Normal) Range: 0.0-17.0 Creatinine, Urine 181.2 mg/dL (Normal) Range: 15.0-278.0 06-Ltd-807076:41 Microscopic Examination Comments: PATIENT WAS FASTINGPERFORMED BY: [address] [id number] Bacteria Few (Normal) Mucus Threads Present (Normal) Epithelial Cells (non >10 {/hpf} Range: 0 - 10 renal) (Abnormal) RBC 0-3 {/hpf} (Normal) Range: 0 - 3 WBC 0-5 {/hpf} (Normal) Range: 0 - 5 TSH 2.900 {uIU/mL} Comments: PATIENT WAS FASTINGPERFORMED BY: [place] 0349470 [facility] [id number] 1:41 (Normal) Range: 0.450-4.500 :41 Urinalysis, Complete Comments: PATIENT WAS FASTINGPERFORMED BY: [address] [id number] Microscopic Examination See below: (Normal) Nitrite, Urine Negative (Normal) Urobilinogen,Semi-Qn 0.2 mg/dL (Normal) Range: 0.0-1.9 Bilirubin Negative (Normal) Occult Blood Negative (Normal) Ketones Negative (Normal) Glucose Negative (Normal) Protein Negative (Normal) WBC Esterase 1+ (Abnormal) Appearance Clear (Normal) Urine-Color Yellow (Normal) pH 6.5 (Normal) Range: 5.0-7.5 Specific [place] 1.024 (Normal) Range: 1.005-1.030 45-Zke-713376:45 URINALYSIS, W/ MICRO (33869) Comments: PATIENT WAS FASTINGPERFORMED BY: [address] RoadDublin [place] [id number] Microscopic Examination See below: (Normal) Nitrite, Urine Negative (Normal) Urobilinogen,Semi-Qn 0.2 mg/dL (Normal) Range: 0.0-1.9 Bilirubin Negative (Normal) Ketones Negative (Normal) Occult Blood Negative (Normal) Glucose Negative (Normal) Protein 1+ (Abnormal) WBC Esterase 1+ (Abnormal) Appearance Turbid (Abnormal) Urine-Color Yellow (Normal) pH 8.5 (Abnormal) Range: 5.0-7.5 Specific [place] 1.027 (Normal) Range: 1.005-1.030 :45 TSH (33447) Comments: PATIENT WAS FASTINGPERFORMED BY: [facility]6370 [facility] [id number] TSH 1.890 {uIU/mL} (Normal) Range: 0.450-4.500 :45 MICROALBUMIN: CREATININE RATIO Comments: PATIENT WAS FASTINGPERFORMED BY: [facility]6370 [facility] [id number] (43833) AND (05685) Microalb/Creat Ratio 9.5 {mg/g_creat} (Normal) Range: 0.0-30.0 Creatinine, Urine 186.1 mg/dL (Normal) Range: 15.0-278.0 Microalbumin, Urine 17.7 ug/mL (Abnormal) Range: 0.0-17.0 :45 METABOLIC PANEL, COMPREHENSIVE Comments: PATIENT WAS FASTINGPERFORMED BY: [facility]6370 [facility] [id number] (01705) ALT (SGPT) 21 [iU]/L (Normal) Range: 0-40 [...] Glucose, Serum 98 mg/dL (Normal) Range: 65-99 98-Jfm-471038:45 LIPID PANEL (12213) Comments: PATIENT WAS FASTINGPERFORMED BY: [employer] LabCoRunMyProcessSacyvt1070 [facility] [id number] LDL/HDL Ratio 1.6 {ratio_units} (Normal) Range: 0.0-3.2 [...] MANUAL DIFF Comments: PATIENT WAS FASTINGPERFORMED BY: LabCoPalisades Medical CenterRgvtqu5274 [facility] [id number] Information: [id number] (03789) Immature Grans (Abs) 0.0 {x10E3/uL} (Normal) Range: [...] (Normal) Range: 4.0-10.5 :09 HgA1C , Office (02342) HgA1C , Office 6.0 % (Normal) Range: 4.6 - 7.1 :09 Blood Glucose , Office (74688) Blood Glucose , Office 79 (Normal) :33 Blood Glucose , Office (22039) Blood Glucose , Office 98 (Normal) :33 HgA1C , Office (50705) HgA1C , Office 6.0 % (Normal) Range: 4.6 - 7.1 :39 CBC & PLATELETS (AUTO) Comments: PATIENT WAS FASTINGPERFORMED BY: [facility]6370 [facility] [id number] (02052) Platelets 242 {x10E3/uL} (Normal) Range: 140-415 RDW 13.8 % (Normal) Range: 11.7-15.0 MCHC 33.2 g/dL (Normal) Range: 32.0-36.0 MCH 29.9 pg (Normal) Range: 27.0-34.0 Hematocrit 40.7 % (Normal) Range: 34.0-44.0 MCV 90 fL (Normal) Range: 80-98 Hemoglobin 13.5 g/dL (Normal) Range: 11.5-15.0 RBC 4.51 {x10E6/uL} (Normal) Range: 3.80-5.10 WBC 4.8 {x10E3/uL} (Normal) Range: 4.0-10.5 :39 METABOLIC PANEL, Comments: PATIENT WAS FASTINGPERFORMED BY: [facility]6370 [facility] [id number] Information: [id number] COMPREHENSIVE (38326) ALT (SGPT) 20 [iU]/L (Normal) Range: 0-40 [...] (THYROID STIMULATING Comments: PATIENT WAS FASTINGPERFORMED BY: TextureMediaC[facility] [id number] HORMONE) (51619) TSH 2.830 {uIU/mL} (Normal) Range: 0.450-4.500 :39 MICROALBUMIN URINE QUANT Comments: PATIENT WAS FASTINGPERFORMED BY: TextureMediaC[facility] [id number] (36808) Creatinine, Urine 107.7 mg/dL (Normal) Range: 15.0-278.0 Microalb/Creat Ratio 4.0 {mg/g_creat} (Normal) Range: 0.0-30.0 Microalbumin, Urine 4.3 ug/mL (Normal) Range: 0.0-17.0 :39 LIPID PANEL (21297) Comments: PATIENT WAS FASTINGPERFORMED BY: TextureMediaC[facility] [id number]; appt 06/25/11 LDL/HDL Ratio 1.9 {ratio_units} (Normal) Range: 0.0-3.2 LDL Cholesterol Calc 108 mg/dL (Abnormal) Range: 0-99 VLDL Cholesterol Aneesh 15 mg/dL (Normal) Range: 5-40 HDL Cholesterol 56 mg/dL (Normal) Comments: According to ATP-III Guidelines, HDL-C >59 mg/dL is considered anegative risk factor for CHD. Triglycerides 76 mg/dL (Normal) Range: 0-149 Cholesterol, Total 179 mg/dL (Normal) Range: 100-199 55-Gsc-776428:03 HEMOGLOBIN GLYCLATED (HGB Comments: PATIENT NOT FASTINGPERFORMED BY: [employer]70 [facility] [id number] Information: [id number] A1C) (82477) Hemoglobin A1c 6.0 % (Abnormal) Range: 4.8-5.6 Comments: Increased risk for diabetes: 5.7 - 6.4 Diabetes: >6.4 Glycemic control for adults with diabetes: <7.0 40-Vzz-563330:42 Blood Glucose , Office (59820) Blood Glucose , Office 120 (Normal) Comments: patient reported. Showed me on her meter and declined to have done in office today. 90-Zth-095226:32 Microscopic Examination Comments: PATIENT WAS FASTINGPERFORMED BY: [employer]6370 [facility] [id number] Bacteria Moderate (Abnormal) Mucus Threads Present (Normal) Epithelial Cells (non renal) 0-10 {/hpf} (Normal) Range: 0 - 10 RBC 0-3 {/hpf} (Normal) Range: 0 - 3 WBC 0-5 {/hpf} (Normal) Range: 0 - 5 :32 URINALYSIS, W/ MICRO ([id number]) Comments: PATIENT WAS FASTINGPERFORMED BY: [facility] [id number] [id number] Microscopic Examination See below: (Normal) Bilirubin Negative (Normal) Microscopic Examination MICRON (Normal) Comments: Microscopic follows if indicated. Nitrite, Urine Negative (Normal) Urobilinogen,Semi-Qn 0.2 mg/dL (Normal) Range: 0.0-1.9 Glucose Negative (Normal) Ketones Negative (Normal) Occult Blood Negative (Normal) Appearance Clear (Normal) Protein Negative (Normal) WBC Esterase Negative (Normal) pH 7.0 (Normal) Range: 5.0-7.5 Urine-Color Yellow (Normal) Specific [place] 1.020 (Normal) Range: 1.005-1.030 :32 METABOLIC PANEL, COMPREHENSIVE Comments: PATIENT WAS FASTINGPERFORMED BY: [employer]I [employer]70 [facility] [id number] ([id number]) ALT (SGPT) 18 [iU]/L (Normal) Range: 0-40 [...] Glucose, Serum 90 mg/dL (Normal) Range: 65-99 49-Pgk-071845:32 CBC WITH MANUAL DIFF Comments: PATIENT WAS FASTINGPERFORMED BY: [employer]70 [facility] [id number] Information: [id number] ([id number]) Immature Grans (Abs) 0.0 {x10E3/uL} (Normal) Range: [...] 3.80-5.10 WBC 5.0 {x10E3/uL} (Normal) Range: 4.0-10.5 72-Xuv-401119:32 TSH (50360) Comments: PATIENT WAS FASTINGPERFORMED BY: [facility]CoPal[facility] CenterLipetq7809 [facility] [id number] TSH 3.890 {uIU/mL} (Normal) Range: 0.450-4.500 :32 MICROALBUMIN: CREATININE RATIO Comments: PATIENT WAS FASTINGPERFORMED BY: [employer] SoftwareNew [facility] Treatment CenterXdgyvh7600 [facility] [id number] ([id number]) AND (52150) Microalb/Creat Ratio 2.7 {mg/g_creat} (Normal) Range: 0.0-30.0 Microalbumin, Urine 3.2 ug/mL (Normal) Range: 0.0-17.0 Creatinine, Urine 117.9 mg/dL (Normal) Range: 15.0-278.0 :32 LIPID PANEL (97060) Comments: PATIENT WAS FASTINGPERFORMED BY: [employer] Yrdttz2019 [facility] [id number] LDL/HDL Ratio 1.8 {ratio_units} (Normal) Range: 0.0-3.2 LDL Cholesterol Calc 115 mg/dL (Abnormal) Range: 0-99 VLDL Cholesterol Aneesh 16 mg/dL (Normal) Range: 5-40 HDL Cholesterol 64 mg/dL (Normal) Comments: According to ATP-III Guidelines, HDL-C >59 mg/dL is considered anegative risk factor for CHD. Triglycerides 79 mg/dL (Normal) Range: 0-149 Cholesterol, Total 195 mg/dL (Normal) Range: 100-199 95-Ucp-952207:29 PELVIC (NON ) Radiology See Note Comments: [...] on 08/10/10 1410 Sign by: Lizzy Day 21-Ixp-99135:00 TRANSVAGINAL NON- Radiology See Note Comments: ADDENDUM [...] advised Dictated on 08/09/10 1436 by Martha Day MDscribed on 17/06 0741 by ITS IMPORTSign by Lizzy Day MD on 08/17/10 0742 Sign by: Lizzy Moore MD Addendum CLINICAL:Dysfunctional [...] (ACTIVATED PARTIAL Comments: PATIENT NOT FASTINGPERFORMED BY: [place] 0349470 [facility] [id number] THROMBOPLASTIN TIME) (50494) aPTT 29 {sec} (Normal) Range: 24-33 Comments: This test has not been validated for monitoring unfractionated heparintherapy. aPTT-based therapeutic ranges for unfractionated heparintherapy have not been established. For general guidelines onHeparin monitoring, refer to the [facility] Directory of Services. :44 PT (PROTHROMBIN TIME) (63720) Comments: PATIENT NOT FASTINGPERFORMED BY: [facility]6370 [facility] [id number] Prothrombin Time 10.5 {sec} (Normal) Range: 8.7-11.5 INR 1.0 (Normal) Range: 0.8-1.2 Comments: Reference interval is for non-anticoagulated patients. . Suggested INR therapeutic range for Vitamin K anta gonist therapy: Standard Dose (moderate intensity therapeutic range): 2.0 - 3.0 Higher intensity therapeutic range 2.5 - 3.5 :44 PROLACTIN (71029) Comments: PATIENT NOT FASTINGPERFORMED BY: [facility]6370 [facility] [id number] Prolactin 14.9 ng/mL (Normal) Range: 4.8-23.3 :44 METABOLIC PANEL, Comments: PATIENT NOT FASTINGPERFORMED BY: [facility]6370 [facility] [id number] Information: [id number] COMPREHENSIVE (69938) ALT (SGPT) 22 [iU]/L (Normal) Range: 0-40 [...] Glucose, Serum 88 mg/dL (Normal) Range: 65-99 12-Yzo-865509:44 TSH (37526) Comments: PATIENT NOT FASTINGPERFORMED BY: CB [facility] Qztwvd7733 [facility] [id number] TSH 2.410 {uIU/mL} (Normal) Range: 0.450-4.500 :44 CBC (AUTO) (62009) Comments: PATIENT NOT FASTINGPERFORMED BY: CB [facility] Vcdesw3433 [facility] [id number] MCHC 33.6 g/dL (Normal) Range: 32.0-36.0 Platelets 295 {x10E3/uL} (Normal) Range: 140-415 RDW 14.0 % (Normal) Range: 11.7-15.0 Hematocrit 38.7 % (Normal) Range: 34.0-44.0 MCH 30.1 pg (Normal) Range: 27.0-34.0 MCV 90 fL (Normal) Range: 80-98 Hemoglobin 13.0 g/dL (Normal) Range: 11.5-15.0 RBC 4.32 {x10E6/uL} (Normal) Range: 3.80-5.10 WBC 7.7 {x10E3/uL} (Normal) Range: 4.0-10.5 :23 HgA1C , Office (49234) HgA1C , Office 6.1 % (Normal) Range: 4.6 - 7.1 :23 Blood Glucose , Office (48562) Blood Glucose , Office 100 (Normal) :18 CBC With Differential/Platelet Comments: PATIENT WAS FASTINGPERFORMED BY: [facility]CoPal[facility] CenterFzzyjp1760 [facility] [id number] Immature Grans (Abs) 0.0 {x10E3/uL} (Normal) Range: [...] 3.80-5.10 WBC 6.1 {x10E3/uL} (Normal) Range: 4.0-10.5 94-Cnh-041564:18 Comp. Metabolic Panel (14) Comments: PATIENT WAS FASTINGPERFORMED BY: [facility]CoPal[facility] CenterEnuvwm3586 [facility] [id number] ALT (SGPT) 18 [iU]/L (Normal) Range: 0-40 [...] Glucose, Serum 99 mg/dL (Normal) Range: 65-99 23-Klv-391523:18 Lipid Panel With LDL/HDL Comments: PATIENT WAS FASTINGPERFORMED BY: [employer] [facility] [id number] Ratio HDL Cholesterol 53 mg/dL (Normal) Comments: [...] 2.770 {uIU/mL} Comments: PATIENT WAS FASTINGPERFORMED BY: [employer]6370 [facility] [id number] :18 (Normal) Range: 0.450-4.500 :48 HgA1C , Office (89554) HgA1C , Office 6.2 % (Normal) Range: 4.6 - 7.1 :48 Blood Glucose , Office (13113) Blood Glucose , Office 97 (Normal) :46 CBC With Differential/Platelet Comments: PATIENT WAS FASTINGPERFORMED BY: [facility] Vkixke9150 [facility] [id number] Baso (Absolute) 0.0 {x10E3/uL} (Normal) Range: 0.0-0.2 [...] Panel (14) Comments: PATIENT WAS FASTINGPERFORMED BY: [facility]6370 [facility] [id number] A/G Ratio 1.5 (Normal) Range: 1.1-2.5 Albumin, [...] Serum 103 mg/dL (Abnormal) Range: 65-99 If -Venezuelan >59 mL/min/1.73 Comments: Note: Persistent reduction for [...] With LDL/HDL Comments: PATIENT WAS FASTINGPERFORMED BY: [facility] CenterArmdxb1116 [facility] [id number] Ratio Cholesterol, Total 179 mg/dL (Normal) Range: [...] Direct, S Comments: PATIENT WAS FASTINGPERFORMED BY: [facility]6370 [facility] [id number] T4,Free(Direct) 1.13 ng/dL Range: 0.61-1.76 (Normal) 30-Jul-2008 Triiodothyronine,Free,Seru 3.0 pg/mL (Normal) Comments: PATIENT WAS FASTINGPERFORMED BY: [facility]6370 [facility] [id number] 9:46 m Range: 2.3-4.2 30-Jul-2008 TSH 2.949 {uIU/mL} Comments: PATIENT WAS FASTINGPERFORMED BY: [facility]6370 [facility] [id number] 9:46 (Normal) Range: 0.450-4.500 35-Ifq-64577:43 Blood Glucose , Office (70480) Comments: done>Wf. Blood Glucose , Office 100 (Normal) 2-Ldq-648331:30 GLUP 105 mg/dL (Normal) Comments: GLU,2HPPG 75gm GLUC PPG GLUP from 1208:O05935R. 5-Koi-342459:24 ESR SED RATE 31 mm/h (Abnormal) Range: 0-30 8-Mur-565562:24 HGB A1C 6.7 % (Abnormal) Range: 4.0-6.3 Comments: The methodology of Hgb A1C has changed to [place] BehringDimension RXL. No significant changes in patientresults are expected. The reference range remains the same. 3-Jpx-004726:03 BREAST UNILATERAL US () Radiology Report See Note (Normal) Comments: Exam Number: [id number] TARGETED RIGHT BREAST ULTRASOUND HISTORYAbnormal mammogram. High [...] Report See Note (Normal) Comments: Exam Number: [id number] TARGETED RIGHT BREAST ULTRASOUND HISTORYAbnormal mammogram. High-resolution [...] werealso examined with computer-aide d detection software ([employer], [employer] Reported By: PHYLLIS HEWITT M.D. :36 BILAT [facility] DIGITAL & CAD Radiology Report See Note (Normal) Comments: Exam Number: [id number] MAMMOGRAM, BILATERAL SCREENING DIGITAL AND CAD HISTORYRoutine [...] patient reported a previous study performed at [facility]. That examination was too old and is [...] mammograms werealso examined with computer-aided detection software ([employer] Reported By: PHYLLIS HEWITT M.D. :26 H pylori, IgM, IgG, IgA Ab Comments: PERFORMED BY: [facility]6370 [facility] [id number] H. pylori IgG, Abs <0.9 U/mL (Normal) [...] Plan of Care Name Dates Details Instructions Osteoarthritis of left knee, unspecified osteoarthritis type : BP MONITORING - SELF Indication: Osteoarthritis of left knee, unspecified osteoarthritis type Osteoarthritis of left knee, unspecified osteoarthritis type : Diet, Exercise, and Wt loss Indication: Osteoarthritis of left knee, unspecified osteoarthritis type Benign essential hypertension : Continue Current Prescription(s) Indication: Benign essential hypertension Chronic pain of both knees : Knee Injections-L Indication: Chronic pain of both knees Chronic pain of both knees : Knee Injections-R Indication: Chronic pain of both knees Chronic pain of both knees : Reviewed Diagnostic Tests Indication: Chronic pain of both knees Controlled diabetes mellitus type II without complication : Diet, Exercise, and Wt loss Indication: Controlled diabetes mellitus type II without complication Controlled diabetes mellitus type II without complication : *Diabetes Education Indication: Controlled diabetes mellitus type II without complication Atrial fibrillation, rapid : Continue Current Prescription(s) Indication: Atrial fibrillation, rapid Atrial fibrillation, rapid : Reviewed 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 Indication: Atrial fibrillation, rapid Benign essential [...] Diarrhea Unspecified osteoarthritis, unspecified site : Reviewed 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 Indication: Unspecified osteoarthritis, unspecified site Controlled [...] - Strool Based DNA Test, CRC SCREEN (14117)Indication: Screening for colon cancer On: 68-Alt-030700:51 Request LIPID PANEL (71952)Indication: Controlled diabetes mellitus type II without complication On: 1-Tmf-595968:53 Request HGB A1C (14689)Indication: Controlled diabetes mellitus type II without complication On: 22-Mar-20178:18 Request LIPID PANEL (04936)Indication: Hypercholesteremia On: 22-Mar-20178:17 Request HGB A1C (90029)Indication: Uncontrolled type II diabetes mellitus On: 31-Oct-2016 Request POTASSIUM SERUM (04258)Indication: High potassium On: 8-Gnd-145605:06 Request HELICO PYLORI, STOOL, INFCT ANTIGEN (12809)Indication: NSAID long-term use On: 1-Qhk-021819:05 Request TSH (57396)Indication: Uncontrolled type II diabetes mellitus On: 7-Tiq-439198:58 Request TSH (08304)Indication: Pain in unspecified joint On: :41 Request CBC WITH MANUAL DIFF (68421)Indication: Pain in unspecified joint On: :41 Request METABOLIC PANEL, COMPREHENSIVE (86659)Indication: Pain in unspecified joint On: :41 Request URINALYSIS, W/ MICRO (39938)Indication: Benign essential hypertension On: 75-Ezx-228407:06 Request MICROALBUMIN: CREATININE RATIO (36281) AND (22262)Indication: Benign essential hypertension On: 33-Imk-591377:06 Request URINE CED CULTURE-IDENTIFICATN (64535)Indication: Other abnormal finding of urine On: 01-Hqt-725679:56 Request TSH (27175)Indication: Controlled diabetes mellitus type II without complication On: :41 Request URINALYSIS, W/ MICRO (52480)Indication: Benign essential hypertension On: :41 Request MICROALBUMIN: CREATININE RATIO (92315) AND (98704)Indication: Benign essential hypertension On: :41 Request METABOLIC PANEL, COMPREHENSIVE (79719)Indication: Benign essential hypertension On: :41 Request LIPID PANEL (74394)Indication: Benign essential hypertension On: :41 Request CBC WITH MANUAL DIFF (18714)Indication: Benign essential hypertension On: :41 Request TSH (66560)Indication: Uncontrolled type II diabetes mellitus On: :37 Request METABOLIC PANEL, COMPREHENSIVE (37002)Indication: Uncontrolled type II diabetes mellitus On: :36 Request MICROALBUMIN: CREATININE RATIO (51157) AND (46565)Indication: Uncontrolled type II diabetes mellitus On: 68-Mjf-656381:36 Request LIPID PANEL (87528)Indication: Uncontrolled type II diabetes mellitus On: :36 Request CBC WITH MANUAL DIFF (64287)Indication: Uncontrolled type II diabetes mellitus On: :36 Request H. PYLORI BLD TEST UREASE NON-RAD (86443)Indication: Epigastric pain On: 96-Pst-39474:09 Request Planned Procedures DRAIN/INJECT, JOINT/BURSA On: 31-Jul-2018 Intent ()By: Nina Jiménez DO, DO, Kathleen DRAIN/INJECT, JOINT/BURSA On: 31-Jul-2018 Intent ()By: Nina Jiménez DO, DO, Nina X-RAY OF KNEE, TWO VIEWS On: 21-Jul-2018 Intent (65432)By: Nina Jiménez DO Comments: L Tino ALONSO, Nina X-RAY OF KNEE, TWO VIEWS On: 21-Jul-2018 Intent (79728)By: Nina Jiménez DO Comments: R Nina Jiménez DO ELECTROCARDIOGRAM, COMPLETE (ECG) On: 21-Jul-2018 Intent (21071)By: Nina Jiménez DO Comments: nsr no acute chg Nina Jiménez DO Bone Density StudyBy: Tino ALONSO, On: 03-Jul-2018 Intent Nina Stover DO MAMMOGRAM BREAST BILATERAL On: 03-Jul-2018 Intent SCREENING DIGITAL (81909)By: Nina Jiménez DO, DO, Kathleen CT SCAN OF ABDOMEN AND PELVIS WITH On: 26-Jul-2017 Intent CONTRAST (82345)By: Nina Jiménez DO, DO, Kathleen ELECTROCARDIOGRAM, COMPLETE (ECG) On: 26-Jul-2017 Intent (57797)By: Nina Jiménez DO Comments: nsr no acute chg Nina Jiménez DO MAMMOGRAM, SCREENING, BOTH BREAST On: 01-Nov-2016 Intent (80304)By: Nina Jiménez DO, DO, Kathleen Echo CompleteBy: Tino ALONSO, On: 18-May-2016 Intent Nina Stover DO Comments: dr mckee Holter Monitor 24 hrsBy: Tino On: 04-May-2016 iNna Jeffers DO, DO, Kathleen ELECTROCARDIOGRAM, COMPLETE (ECG) On: 04-May-2016 Intent (08231)By: Nina Jiménez DO Comments: ? a fib vs atrial tachycardia - df rev as well -- thought maybe some flutter trying to breakthru where we see P waves -- pt asx and hemodynamically stable Nina Jiménez DO MRI ANKLE LEFT WO CONTRAST On: 14-Nov-2015 Intent (86916)By: Nina Jiménez DO, DO, Kathleen Aerosol Treatment (57451)By: [place] On: 08-Dec-2014 Intent Nette VASQUEZ EKG (71664)By: Tino ALONSO, On: 16-Aug-2014 Intent Nina Stover DO Comments: nsr no acute chg Upper EndoscopyBy: Abdi WHITLOCK Kacey On: 09-Jul-2014 Intent E Endoscopy - OtherBy: Abdi WHITLOCK, On: 09-Jul-2014 Intent Emi MRI - Knee(s) - RightBy: Ciesa On: 09-Jul-2014 Intent CHINYERE Emi Endoscopy - [...] 08-Jul-2013 Intent (G8553)By: Geovanna Nuñez LPN EKG (76858)By: Trisha Emery MD On: 03-Jul-2013 Intent Comments: see scanned document of test done to see results reviewed today with patient Eprescribed prescriptions On: 08-Apr-2013 Intent (G8553)By: Geovanna Nuñez LPN EKG (44964)By: Tino ALONSO, On: 18-Aug-2012 Intent Nian Stover DO Comments: nsr no acute chg Eprescribed prescriptions On: 18-Aug-2012 Intent (G8553)By: Lidya Stephenson LPN Eprescribed prescriptions On: 08-May-2012 Intent (G8553)By: Nina Jiménez DO, DO, Kathleen Eprescribed prescriptions On: 08-May-2012 Intent (G8553)By: Geovanna Nuñez LPN CT - Neck (IV Contrast Needed)By: On: 28-Oct-2011 Intent Nina Jiménez DO, DO, Comments: follow up original image done at [facility]-- ( mri cervical spine) Nina EKG (98144)By: Tino ALONSO, On: 25-Jul-2011 Intent Nina Stover DO Comments: NSR NO ACUTE CHG Ultrasound - PelvisBy: Tino ALONSO, On: 01-Dec-2010 Intent Nina Stover DO Ultrasound - PelvisBy: Tino ALONSO, On: 02-Aug-2010 Intent Nina Stover DO Comments: may do vaginal probe if need to EKG (94953)By: Tino ALONSO, On: 16-Feb-2010 Intent Nina Stover DO Comments: nsr no acute chnages FLU VAC, SPLIT, >3 YEARS, On: 29-Jul-2008 Intent INTRAMUSC (67021)By: Nina Jiménez DO DONina IMMUNIZ ADMNIN, 1 VAC, SNGL/COMBO On: 29-Jul-2008 Intent (53264)By: Nina Jiménez DO Comments: lot # [id number]- 02/15/0996rbpl-XVZLstnwn-SIakep- 0.5ML chenderson tolerated well Tino DO, Nina IMMUNIZ ADMNIN, 1 VAC, SNGL/COMBO On: 29-Jul-2008 Intent (85197)By: Nina Jiménez DO Comments: lot # [id number]- 12/27/20197288cald-WCBHltnup-BLkaak- O.5ML chenderson tolerated well Tino DO, Nina PNEUM VAC ADLT/IMUMNOSPR, On: 29-Jul-2008 Intent SBC/INTRM (25797)By: Tino ALONSO, Nina Stover DO EKG (48169)By: Tino ALONSO, On: 29-Jul-2008 Intent Zo Stover DOeen MAMMOGRAM, SCREENING, BOTH BREASTS On: 04-Jun-2008 Intent (00130)By: Jojo Santoyo Instructions Name Dates Details Non-smoker [...] II without complication Encounters Office Visit On: 31-Jul-2018 10:53 Encounter Reason: Knee PainEncounter Diagnosis: BMI 38.0-38.9,adult, Non-smoker, Chronic pain of both knees, Nutritional counseling, Chronic anticoagulation, Osteoarthritis of left knee, unspecified osteoarthritis type, End: 31-Jul-2018 11:52 Benign essential hypertension (401.1) [facility] Office Visit On: 21-Jul-2018 11:59 Encounter Reason: [...] Pain,Unspecified Site (789.00) [facility]ayers [facility]Nina Ayon; dia guarantor
--- OUTSIDE RECORDS SUMMARY | 2018-09-13 21:09 | XMS RPT_ITS | Continuity of Care Document ---
:1955 Author Organization [facility] Address [facility] [address] Phone Care Team Providers Name Role Phone [...] VAC ADLT/IMUMNOSPR, Date: 14-Nov-2015 Completed 14-Nov-2015 SBC/INTRM (69719) Comments: Lot:[id number]:04/05/17Dose:0.5mgRoute:imSite:david Boo By:WILLI signed Cardioversion Completed Comments: 2015 Colonoscopy Completed Comments: 07-27-08 - Diverticulitis Diverticulitis (562.11) Completed Comments: Colonoscopy 07-27-08 lt finger sx Completed Comments: 03/01 Date Value Details 21-Jul-2018 Knee 1 or 2 Views Result: Comments: See Note; NOTES: [facility] Imaging Services [address] [place] [address] Knee 1 or 2 Views MR#: [id number] Acct: [id number] Name: GABONINA B Rep #: [id number] : 1955 F 63 From: Clayton Newman MD PCP: Nina Jiménez DO Status: REG CLI Study: Knee 1 or 2 Views Date of Exam: 07/21/18 Exam# [id number] Ordering Dr: Nina Jiménez DO STUDY: X-RAY [...] Service support , CC: Nina Jiménez DO Process Controller: Signed 21-Jul-2018 Knee 1 or 2 Views Result: Comments: See Note; NOTES: [facility] Imaging Services [address] [place] [address] Knee 1 or 2 Views MR#: [id number] Acct: [id number] Name: NINA AYON Rep #: [id number] : 1955 F 63 From: Clayton Newman MD PCP: Nina Jiménez DO Status: REG CLI Study: Knee 1 or 2 Views Date of Exam: 07/21/18 Exam# [id number] Ordering Dr: Nina Jiménez DO STUDY: X-RAY [...] Service support , CC: Nina Jiménez DO Process Controller: Signed 22-Apr-2018 12 Lead Electrocardiogram Result: Comments: See Note; NOTES: [facility] Cardiovascular Services [address] [place] [address] 12 Lead EKG 04/19/18 1456 MR#: [id number] Acct: [id number] Name: NINA AYON R ep #: [id number] : 1955 62 From: Bright Peng MD [...] Borderline ECG Confirmed by BRIGHT PENG ([id number]), news videotape editor OBDULIO PURDY ([id number]) on 04/22/2018 1:27:45 PM Referred By: JOHN Confirmed By: BRIGHT PENG 04/22/18 1327 Date Bright Peng MD CC: Nina Jiménez DO; Cedric Sylvester MD Signed 19-Apr-2018 Emergency Department Summary Result: Comments: See Note; NOTES: [facility] Medical Records Department [address] [place] [address] Emergency Department Summary 04/19/18 1653 MR#: [id number] Acct: [id number] Name: GABONINA Kaur Rep #: [id number] : 1955 62 From: Cedric Sylvester MD [...] pleuritic component This note was generated with [employer] dictation software. It may contain incorrect words, [...] problems, contact your Primary Care Provider. Call [facility] ([phone]) or report to the closest Emergency Room. Call 911 if necessary. 04/19/18 1701 <Electronically signed by Cedric Sylvester MD> Date Cedric Sylvester MD Cosig ner Signature (If Indicated): Date CC: Nina Jiménez DO 19-Apr-2018 Chest 1 View (Portable) Result: Comments: See Note; NOTES: [facility] Imaging Services [address] [place] [address] Chest 1 View (Portable) MR#: [id number] Acct: [id number] Name: NINA AYON Rep #: [id number] : 1955 F 62 From: Dolly Hardy MD PCP: Nina Jiménez DO Status: PRE ER Study: Chest 1 View (Portable) Date of Exam: 04/19/18 Exam# [id number] Ordering Dr: Cedric Sylvester MD STUDY: X-RAY [...] CC: Nina Jiménez DO; Cedric Sylvester MD Process Controller: Signed 10-Feb-2018 Cardiology Visit Report Result: Comments: See Note; NOTES: [facility] [address] [place] [address] OFFICE VISIT Date of Service: 02/10/18 MR#: [id number] Acct: [id number] Name: NINA AYON Rep #: [id number] : 1955 Provider: KATHY Snider Age/Sex: 62/F [place] [facility] [place]: Signed HPI HPI Details: NINA AYON, [...] Throbbing ) Pain scale (1-10): 7 Al lergies pneumococcal vaccine Allergy (Verified 01/09/18 10:13) Unknown [...] QDAY #30 tab 02/10/18 [Rx Confirmed 02/10/18] [facility] Medical History Abnormal stre ss test (Acute) Chest pain (Acute) Hyperlipidemia (Chronic) Hypertension (Chronic) Nonrheumatic mitral valve regurgitation (Chronic) Nonrheumatic tricuspid (valve) insufficiency (Chronic) Paroxysmal atr ial fibrillation (Acute) 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 The results are as noted below. 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 MINIMUM HEART RATE WAS 92 BPM [...] We will continue to monitor this. 7. 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 Anxiety F41.9 Coding Level of Care Code Off v is,est,level 3 Diagnoses Abnormal stress test R94.39 Essential hypertension I10 Hyperlipidemia, unspecified hyperlipidemia type E78.5 Nonrheumatic mitral valve regurgitation I34.0 Nonrheumatic tricuspi d (valve) insufficiency I36.1 Paroxysmal atrial fibrillation I48.0 MCC (current) use of anticoagulants Z79.01 Anxiety F41.9 02/10/18 1506 <Electronically signed by Dusty MORALES& #62; Date Dusty MORALES Cosigner Signature: Date (if applicable) CC: Nina Jiménez DO 10-Feb-2018 Chest PA and Lateral Result: Comments: See Note; NOTES: [facility] Imaging Services [address] [place] [address] Chest PA and Lateral MR#: [id number] Acct: [id number] Name: NINA AYON Rep #: [id number] : 1955 F 62 From: Leslye Sue MD PCP: Nina Jiménez DO Status: REG CLI Study: Chest PA and Lateral Date of Exam: 02/10/18 Exam# [id number] Ordering Dr: Haile Mckee MD STUDY: X-RA [...] CC: Nina Jiménez DO; Haile Mckee MD Process Controller: Signed 04-Feb-2018 Stress Report Result: Comments: See Note; NOTES: [facility] Cardiovascular Services [address] [place] [address] MR#: [id number] Acct: [id number] Name: NINA AYON Natasha Rep #: [id number] : 62 From: Haile Mckee MD Primary [...] and occasional PVCs during recovery. The functional [facility] was considered average. There was no complaint [...] %. Thi s note was generated with [employer] software. It may contain incorrect words, spelling, and punctuation that were not noted in checking the note before signing. 02/04/18 7498 <Randy person signed by Haile Mckee MD> Date Haile Mckee MD CC: Nina Tino DO; Haile Mckee MD Date Dictated: 02/04/181353 Date Transcribed: 02/04/181353 Process Controller: PM Signed 09-Jan-2018 Cardiology Visit Report Result: Comments: See Note; NOTES: [facility] [address] [place] [address] OFFICE VISIT Date of Service: 01/09/18 MR#: [id number] Acct: [id number] Name: NINA AYON Rep #: [id number] : 1955 Provider: Haile Mckee MD Age/Sex: 62/F Location: 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 The results are as noted below. [...] management and follow- up. Orders Orders: 7. 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 use of anticoagulant Z79.01 Plan Again [...] Essential hypertension I10 Hypertension type: essential hypertension MCC current use of anticoagulant Z79.01 Coding Level of Care Code Off vis,est,level 4 Diagnoses Chest pain, unspecified type R07.9 Chest pain type: unspecified Paroxysmal atrial fibrillation I48.0 Nonrheumatic mitral valve insufficiency I34.0 Non-rheumatic tricuspid valve insufficiency I36.1 Hyper lipidemia, unspecified hyperlipidemia type E78.5 Hyperlipidemia type: unspecified Essential hypertension I10 Hypertension type: essential hypertension MCC current use of anticoagulant Z79.01 1103 <Electronically signed by Haile Mckee MD> Date Haile Mckee MD Cosigner Signature: Date (if applicable) CC: Nina Jiménez DO 09-Jan-2018 12 Lead EKG performed by [facility] Result: Comments: See Note; NOTES: [facility] [address] [place] [address] 12 Lead EKG performed by [facility] 01/09/18 1025 MR#: [id number] Acct: [id number] Name: GABONINA B Rep #: [id number] : 1955 62 From: Haile Mckee MD Attending Dr: Haile Mckee MD Status: [facility]P [facility] Ordering Dr: Haile Mckee MD Date: 01/09/18 [place] [facility] Sex: F C Admitted : [facility]/12 Lead EKG performed by [facility] ECG Report Interpretation Sinus Rhythm - occasional ectopic ventricular beat Electronically signed on 01/09/2018 at 12:2 4 by Haile Mckee 01/09/18 1227 Date Haile Mckee MD CC: Nina Jiménez DO Date Dictated: 01/09/18 1025 Date Transcribed: 01/09/18 102 Process Controller: PM Signed 09-Aug-2017 Abdomen/Pelvis WITH Contrast Result: Comments: See Note; NOTES: [facility] Imaging Services [address] [place] [address] Abdomen/Pelvis WITH Contrast MR#: [id number] Acct: [id number] Name: NINA AYON Rep # : [id number] : 1955 F 62 From: Ganga Argueta PCP: Nina Jiménez DO Status: REG CLI Study: Abdomen/Pelvis WITH Contrast Date of Exam: 08/09/17 Exam# [id number] Ordering Dr: Nina Jiménez DO STUDY: CT [...] of the lumbar spine. ORDE R #: [id number] CT/Abdomen/Pelvis WITH Contrast IMPRESSION: No acute findings in the abdomen or pelvis. Normal appendix. No hydronephrosis or urinary tract stones. No evidence of bowel obstruction. M ild sigmoid colon diverticulosis. Moderate size hiatal hernia. Electronically Signed: Ganga Argueta MD at 8:11 EST , Service support , CC: Nina Jiménez DO Process Controller: Signed 07-Nov-2016 Echocardiogram Complete Result: Comments: See Note; NOTES: [facility] Cardiovascular Services [address] [place] [address] Echo Complete 11/07/16 1027 MR#: [id number] Acct: [id number] Name: NINA AYON Rep #: [id number] : 1955 61 From: Haile Mckee MD Attending Dr: Sanam Coronel NP Status: REG CLI Ordering Dr: Sanam Coronel NP-Rishabh Date: 11/07/16 Location: [facility] Sex: F C Admitted: Daksha son For [...] Performed By: Aide Snider, RONAL, RVT 11/07/16 1734 Date Haile Mckee MD CC: Sanam Coronel BIRDCAGE ASSEMBLER; Nina Jiménez DO Date Dictated: 11/07/16 1027 Date Transcribed: 11/07/161733 Process Controller: Signed 02-Nov-2016 SCREENING MAMM (CAD), BILAT Result: Comments: See Note; NOTES: [facility] Imaging Services [address] [place] [address] Verdana 4d SCREENING MAMM (CAD), BILAT MR#: [id number] Acct: [id number] Name: DARÍO AYON Rep #: [id number] : 1955 F 61 From: Jaya Mac MD PCP: Nina Jiménez DO Status: REG CLI Study: SCREENING MAMM (CAD), BILAT Date of Exam: 11/02/16 Exam# [id number] Ordering Dr: Nina Kingsley DO MAMMOGRAPHY - [...] will be sent to the patient by [facility] within 30 days. Approximately 10% of breast cancers are not detected by mammography. A normal mammogram should not delay biopsy of a clinically suspicious abnormality. [id number] [facility] Signed: Jaya Mac MD at 8:27 EDT Tel [phone], Service support [phone], CC: Nina Jiménez DO Process Controller: Signed 04-Jul-2016 Operative Report Result: Comments: See Note; NOTES: [facility] Medical Records Department [address] [place] [address] Operative Report MR#: [id number] Acct: [id number] Name: NINA AYON Rep #: [id number] : 1955 61 From: Juan Covington MD PCP: Nina Jiménez DO Status: [facility] DATE OF SERVICE: 07/03/2016 DATE OF SERVICE: [...] MD Primary Care Physician T: FERNANDO JOB: [id number] 07/04/16 0615 <Electronically signed by Juan Covington MD> Date Juan Covington MD Cosigner Signature (If Indicated): Date CC: Juan Covington MD; Nina Jiménez DO; Haile Mckee MD Date Dictated: 07/03/16 1104 Date Transcribed: 07/03/161103 Process Controller: Signed 03-Jul-2016 Operative Report Result: Comments: See Note; NOTES: [facility] Medical Records Department [address] [place] [address] Operative Report 07/03/16 1642 MR#: [id number] Acct: [id number] Name: DARÍO AYON Rep #: [id number] : 1955 61 From: Haile Mckee MD PCP: Nina Jiménez DO Status: [facility] Y Location: [facility] Problem List (1) Atrial fibrillation [...] complica tions This note was generated with [employer] dictation software. It may contain incorrect words, spelling, and punctuation that were not noted in checking the note before signing. 07/03/16 1644 &#6 0;Electronically signed by Haile Mckee MD> Date Haile Mckee MD CC: Nina Jiménez DO; Haile Mckee MD Signed 03-Jul-2016 Echo Transesophageal (KATHY) Result: Comments: See Note; NOTES: [facility] Cardiovascular Services [address] [place] [address] Echo Transesophageal (KATHY) 07/03/16 0947 MR#: [id number] Acct: [id number] Name: TESSA AYALANINA B Rep #: [id number] : 1955 61 From: Haile Mckee MD Attending Dr: Haile Mckee MD Status: REJI CAVANAUGH Ordering Dr: Haile Mckee MD Date: 07/03/16 Location: [facility] Sex: F C Admitted: Reason For Study: AFIB Medication KATHY probe passed with minimal difficulty. Cetacaine Topical Dubois given X3 orally. Versed 2 mg given [...] DO; Haile Mckee MD Da te Dictated: 07/03/1647 Date Transcribed: 07/03/161435 Process Controller: Signed 28-Jun-2016 Chest PA and Lateral Result: Comments: See Note; NOTES: [facility] Imaging Services [address] [place] [address] Verdana 4d Chest PA and Lateral MR#: [id number] Acct: [id number] Name: GABONINA Natasha Craig ep #: [id number] : 1955 F 61 From: Johnathon Meza PCP: Nina Jiménez DO Status: [facility] Study: Chest PA and Lateral Date of Exam: 06/28/16 Exam# [id number] Ordering Dr: Haile Mckee MD STUDY: X-RAY [...] at 6:38 EST Tel , Service support [phone], CC: Nina Jiménez DO; Haile Mckee MD Process Controller: Signed 19-Jun-2016 Nuclear Stress Test - Chemical Result: Comments: See Note; NOTES: [facility] Imaging Services [address] [place] [address] Candie 4d Nuclear Stress Test - Chemical MR#: [id number] Acct: [id number] Name: Ashlee AYON Rep #: [id number] : 1955 61 From: Haile Mckee MD [...] 60%. Haile Mckee MD T: NTS JOB: [id number] 06/19/16 1937 <Electronically signed by Haile Mckee MD> Date Haile Mckee MD CC: Nina Diop on DO; Haile Mckee MD Date Dictated: 06/19/161406 Date Transcribed: 06/19/161406 Process Controller: Signed 08-Jun-2016 Echocardiogram Complete Result: Comments: See Note; NOTES: [facility] Cardiovascular Services [facility] [place] [address] Echo Complete 06/08/16 1319 MR#: [id number] Acct: [id number] Name: NINA AYON Rep #: [id number] : 1955 61 From: Haile Mckee MD Attending Dr: Nina Jiménez DO Status: REG CLI Ordering Dr: Nina Jiménez DO Date: 06/08/16 Location: [facility] Sex: F C Admitted: Reas on [...] Date Dictated: 06/08/16 1319 Date Transcribed: 06/08/161731 Process Controller: Signed 06-Jul-2014 Hepatobilliary Imaging Result: Comments: See Note; NOTES: [facility] Imaging Services [address] [place] [address] Nuclear Medicine Report MR#: [id number] Acct: [id number] Name: NINA AYON Rep #: [id number] : 1955 F 59 From: Steven Cunha DO PCP: Nina Jiménez DO Status: REG CLI Study: Hepatobilliary Imaging Date of Exam: 07/06/14 Exam# [id number] Ordering Dr: Kacey Patton CL INICAL: 59-year-old [...] et al, Journal of Nuclear Medicine 32:1695, 1991). 2. There is scintigraphic evidence of post CCK duodenal-gastric reflux. (Delia et al, Nucl Med Roxana Lucia Press pg. 35, 1980). Electronically Signed: Steven Cunha DO at 8:3 5 EST Tel [phone], Service support [phone], CC: Kacey Jiménez DO Process Controller: Signed 02-Jul-2014 Small Bowel Series Only Result: Comments: See Note; NOTES: [facility] Imaging Services [address] [place], [place] [address] [address] Radiology Report MR#: [id number] Acct: [id number] Name: NINA AYON Rep #: [id number] : 1955 F 59 From: Jaya Mac MD PCP: Nina Jiménez DO Status: REG CLI Study: Small Bowel Series Only Date of Exam: 07/02/14 Exam# [id number] Ordering Dr: Kacey Patton CEDURE: SMALL BOWEL [...] Mac MD 11/27/13 at 11:02 EST Tel [phone], Service support [phone], RAD/Small Bowel Series Only IMPRESSION: Normal small bowel series. Electronically Signed: Jaya Mac MD at 11:02 EST Tel [phone], Service support [phone], CC: Kacey Patton; Nina Tino Process Controller: Signed 23-Jun-2014 Gallbladder Result: Comments: See Note; NOTES: [facility] Imaging Services [address] [place] [address] Ultrasound Report MR#: [id number] Acct: [id number] Name: NINA AYON Rep #: [id number] : 1955 F 59 From: Jaya Mac MD PCP: Nina Jiménez DO Status: REG CLI Study: Gallbladder Date of Exam: 06/23/14 Exam# [id number] Ordering Dr: Kacey Patton STUDY: ABDOMIN AL [...] Jaya Mac MD at 11:48 EST Tel [phone], Service support [phone], CC: Kacey Patton; Nina Jiménez DO Process Controller: Signed Immunization Name Dates Details Influenza (3 years and up) on: 29-Jul-2008 Pneumococcal (2 years and up) on: 14-Nov-2015 Comments: Site: Deltoid (Left) Lot #: [id number] Pneumococcal (2 years and up) on: 29-Jul-2008 Social History Name Dates Details Tobacco use: Never smoker. Status: Active Smoking Status Name Dates Details Never smoker Vital Signs Date Test Result Details 07-Pkh-379540:00 Comments: recheck bp 128/84 Pulse 76 /min [...] kg/m2 Body Surface Area Calculated 2.21 m2 33-Kqi-079226:41 Temperature 97.9 f Comments: Method: Temporal Pulse [...] Date Description Value Details :39 Lipase Comments: [facility] [address] [place], [id number] LIPASE 127 U/L (Normal) Range: 73-393 2-Jbc-827612:39 Liver Profile Comments: [facility] [address] [place], [id number] D BILI 0.07 mg/dL (Normal) Range: 0.00-0.30 T BILI 0.30 mg/dL (Normal) Range: 0.20-1.00 ALT 37 U/L (Normal) Range: 13-56 ALK P 88 U/L (Normal) Range: 45-117 AST 30 U/L (Normal) Range: 15-37 GLOB 3.6 g/dL (Normal) Range: 2.2-4.2 ALB 3.9 g/dL (Normal) Range: 3.2-5.0 T PROT 7.5 g/dL (Normal) Range: 6.4-8.2 8-Zba-579718:10 Basic Metabolic Profile (BMP) Comments: [facility] [address] [place], [id number] GAP 9 (Normal) Range: 5-15 CO2 26.0 [...] A.D.A. criteria.Please note revised GLUCOSE reference range cifoeeplo82/02/2018. 2-Ghw-457875:10 CBC W/Diff, Automated Comments: [facility] [address] [place], [place], [address] Absolute Lymph 1.31 {X10_3/ul} (Normal) Range: 0.83-4.51 [...] 4.2-5.4 WBC 6.9 K/mm3 (Normal) Range: 4.4-11.0 2-Avh-721192:10 Prothrombin Time w/INR Comments: [facility] [address] [place], [place], [address] INR 1.5 (Normal) PROTIME 17.9 s (Abnormal) Range: 11.7-14.9 2-Sgm-908429:10 Troponin-I Comments: [facility] [address] [place], [address] TROPONIN-I < 0.015 ng/mL (Normal) Comments: TROPONIN-I EXPECTED VALUES <0.045 Negative 0.045 - 0.590 Consistent with Cardiac Damage > OR = 0.600 Critical Value Not every elevated troponin is indicative of IN. T hesevalues should be used with clinical judgement in examiningthe patient's clinical picture for diagnosis. To establisha diagnosis of IN versus myocardial injury, there must be ademonstrated rise and/ or fall in the troponin values, inaddition to ischemic symptoms, EKG changes, new regionalwall motion abnormality, and/or angiographical evidence. PLEASE NOTE: REFERENCE RANGES EDITED 12/30/1710-Feb-201821-Rwp-438969:44 Basic Metabolic Profile (BMP) Comments: [facility] [address] [place], [place], [address] GAP 8 (Normal) Range: 5-15 CO2 28.0 [...] A.D.A. criteria.Please note revised GLUCOSE reference range hvysuytat32/02/2018. 04-Fqv-447973:44 CBC-Complete Blood Cnt No Diff Comments: [facility] [address] [place], [address] MPV 11.4 fL (Normal) Range: 6.2-12.0 PLT [...] 4.2-5.4 WBC 6.2 K/mm3 (Normal) Range: 4.4-11.0 95-Hrq-874662:44 Partial Thromboplast Time Comments: [facility] [address] [place], [address] PTT 37.7 s (Abnormal) Range: 24.1-36.2 :44 Prothrombin Time w/INR Comments: [facility] [address] [place], [address] INR 1.8 (Normal) PROTIME 21.0 s (Abnormal) Range: 11.7-14.9 1-Ozz-067575:37 Urinalysis, Office (58412) UA - LEUKOCYTE ESTERASE Moderate (Normal) UA - NITRITE Negative (Normal) URINE UROBILINGN RUBEN TIMED 2 mg/dL (Normal) UA - PROTEIN Negative mg/dL (Normal) UA - PH 7.0 (Normal) UA - BLOOD Hemolyzed Trace (Normal) UA - SPECIFIC GRAVITY 1.010 (Normal) UA - KETONES Negative mg/dL (Normal) UA - BILIRUBIN Negative (Normal) UA - GLUCOSE Negative (Normal) 6-Vtn-206987:33 Blood Glucose , Office (82035) Blood Glucose , Office 131 (Normal) 0-Vwg-657826:33 HgA1C , Office (50485) HgA1C , Office 5.9 % (Normal) Range: 4.6 - 7.1 3-Air-381165:22 H-Pylori IGA,IGG,IGM (52188) Comments: PATIENT NOT FASTINGPERFORMED BY: [facility] [facility] [id number] H pylori, IgM Abs <9.0 {units} (Normal) Range: 0.0-8.9 Comments: Negative <9.0 Equivocal 9.0 - 11.0 Positive >11.0 .This test was developed and its performance characteristicsdetermined by [facility]. It has not been cleared or [...] to: Negative <0.8 Equivocal 0.8 Positive >0.8 8-Ifp-318129:19 Microscopic Examination Comments: PATIENT WAS FASTINGPERFORMED BY: [facility] [facility] [id number] Bacteria Few (Normal) Mucus Threads Present (Normal) Epithelial Cells (non renal) >10 {/hpf} (Abnormal) Range: 0 - 10 RBC 3-10 {/hpf} (Abnormal) Range: 0 - 2 WBC >30 {/hpf} (Abnormal) Range: 0 - 5 4-Emv-868072:21 Basic Metabolic Profile (BMP) Comments: Order Date: 05/08/17Order Info: 0667-1 - *BMPComments: Reason:[facility] [address] [place], [place], [address] GAP 5 (Normal) Range: 5-15 CO2 31.0 [...] 7-18 GLU 93 mg/dL (Normal) Range: 70-110 20-Pcj-992637:34 HGB A1C (97183) Comments: PATIENT WAS FASTINGPERFORMED BY: [facility] [id number] Hemoglobin A1c 6.5 % (Abnormal) Range: 4.8-5.6 Comments: . Pre-diabetes: 5.7 - 6.4 Diabetes: >6.4 Glycemic control for adults with diabetes: <7.0 33-Vqz-179388:34 MICROALBUMIN: CREATININE RATIO Comments: PATIENT WAS FASTINGPERFORMED BY: [facility] [id number] (64852) AND (50283) Microalb/Creat Ratio <13.7 {mg/g_creat} (Normal) Range: 0.0-30.0 Microalbumin, Urine <3.0 ug/mL (Normal) Creatinine, Urine 21.9 mg/dL (Normal) 99-Kfu-016003:34 TSH (93979) Comments: PATIENT WAS FASTINGPERFORMED BY: [employer] [address] [id number] TSH 2.420 {uIU/mL} (Normal) Range: 0.450-4.500 34-Spm-544718:34 Lipid Panel (26252) Comments: PATIENT WAS FASTINGPERFORMED BY: [employer] [address] [id number] LDL/HDL Ratio 1.9 {ratio_units} (Normal) Range: 0.0-3.2 Comments: LDL/HDL Ratio Men Women 1/2 Avg.Risk 1.0 1.5 Av g.Risk 3.6 3.2 2X Avg.Risk 6.2 5.0 3X Avg.Risk 8.0 6.1 LDL Cholesterol Calc 132 mg/dL (Abnormal) Range: 0-99 VLDL Cholesterol Aneesh 15 mg/dL (Normal) Range: 5-40 HDL Cholesterol 71 mg/dL (Normal) Triglycerides 73 mg/dL (Normal) Range: 0-149 Cholesterol, Total 218 mg/dL (Abnormal) Range: 100-199 30-Ltb-763698:34 Metabolic Panel, Comprehensive Comments: PATIENT WAS FASTINGPERFORMED BY: LabCoJersey Shore University Medical CenterFexrlk3088 [facility] [id number] (14464) ALT (SGPT) 27 [iU]/L (Normal) Range: 0-32 [...] Glucose, Serum 96 mg/dL (Normal) Range: 65-99 50-Gzj-950977:34 CBC WITH MANUAL DIFF (81811) Comments: PATIENT WAS FASTINGPERFORMED BY: LabCoJersey Shore University Medical CenterFjxmxr2682 [facility] [id number] Immature Grans (Abs) 0.0 {x10E3/uL} (Normal) Range: [...] 7.4 {x10E3/uL} (Normal) Range: 3.4-10.8 :19 TSH (13567) Comments: PATIENT WAS FASTINGPERFORMED BY: LabCoJersey Shore University Medical CenterFdhjez5385 [facility] [id number] TSH 2.050 {uIU/mL} (Normal) Range: 0.450-4.500 :19 URINALYSIS, W/ MICRO (73881) Comments: PATIENT WAS FASTINGPERFORMED BY: [employer] [facility] [id number] Microscopic Examination See below: (Normal) Comments: Microscopic was indicated and was performed. Nitrite, Urine Negative (Normal) Urobilinogen,Semi-Qn 0.2 mg/dL (Normal) Range: 0.2-1.0 Bilirubin Negative (Normal) Occult Blood 1+ (Abnormal) Ketones Negative (Normal) Glucose Negative (Normal) Protein Negative (Normal) WBC Esterase 3+ (Abnormal) Appearance Cloudy (Abnormal) Urine-Color Yellow (Normal) pH 7.0 (Normal) Range: 5.0-7.5 Specific Brookesmith 1.015 (Normal) Range: 1.005-1.030 :19 MICROALBUMIN: CREATININE RATIO Comments: PATIENT WAS FASTINGPERFORMED BY: [employer] Nvlihz5673 [facility] [id number] (43878) AND (87946) Microalb/Creat Ratio 9.1 {mg/g_creat} (Normal) Range: 0.0-30.0 Microalbumin, Urine 7.4 ug/mL (Normal) Creatinine, Urine 81.3 mg/dL (Normal) :19 METABOLIC PANEL, COMPREHENSIVE Comments: PATIENT WAS FASTINGPERFORMED BY: Jasper WirelessJersey Shore University Medical CenterDaswcv2483 [facility] [id number] (80035) ALT (SGPT) 43 [iU]/L (Abnormal) Range: 0-32 [...] Glucose, Serum 104 mg/dL (Abnormal) Range: 65-99 2-Wlh-376767:19 LIPID PANEL (74520) Comments: PATIENT WAS FASTINGPERFORMED BY: Cloudbuild70 [facility]esU[facility] [id number] LDL/HDL Ratio 2.7 {ratio_units} (Normal) Range: 0.0-3.2 Comments: LDL/HDL Ratio Men Women 1/2 Avg.Risk 1.0 1.5 Av g.Risk 3.6 3.2 2X Avg.Risk 6.2 5.0 3X Avg.Risk 8.0 6.1 LDL Cholesterol Calc 145 mg/dL (Abnormal) Range: 0-99 VLDL Cholesterol Aneesh 18 mg/dL (Normal) Range: 5-40 HDL Cholesterol 53 mg/dL (Normal) Triglycerides 89 mg/dL (Normal) Range: 0-149 Cholesterol, Total 216 mg/dL (Abnormal) Range: 100-199 4-Epm-277488:19 CBC W/AUTO DIFF WBC (83810) Comments: PATIENT WAS FASTINGPERFORMED BY: SplitGigs6370 gate5[facility] [id number] Immature Grans (Abs) 0.0 {x10E3/uL} (Normal) Range: [...] 3.77-5.28 WBC 5.9 {x10E3/uL} (Normal) Range: 3.4-10.8 2-Llp-296657:19 HGB A1C (50423) Comments: PATIENT WAS FASTINGPERFORMED BY: [employer] Aiwnvh7342 [facility] [id number] Hemoglobin A1c 6.2 % (Abnormal) Range: 4.8-5.6 Comments: . Pre-diabetes: 5.7 - 6.4 Diabetes: >6.4 Glycemic control for adults with diabetes: <7.0 :19 HGB A1C (05079) Comments: PATIENT NOT FASTINGPERFORMED BY: Jasper WirelessLovelace Women's HospitalKorjnd2282 [facility] [id number] Hemoglobin A1c 6.2 % (Abnormal) Range: 4.8-5.6 Comments: . Pre-diabetes: 5.7 - 6.4 Diabetes: >6.4 Glycemic control for adults with diabetes: <7.0 63-Yqq-128466:33 Basic Metabolic Profile (BMP) Comments: Order Date: 06/21/16Order Info: [id number] - *BMPOrder Date: 06/21/16Order Info: [id number] - *BMPComments: Reason:[facility] Qxfuorsboh[address] [place], [address] GAP 8 (Normal) Range: 5-15 CO2 27.0 [...] 7-18 GLU 89 mg/dL (Normal) Range: 70-110 22-Ufj-163005:37 Microscopic Examination Comments: PATIENT NOT FASTINGPERFORMED BY: AI MerchantJefferson Memorial Hospital [id number] Bacteria None seen (Normal) Mucus Threads Present (Normal) Epithelial Cells (non renal) 0-10 {/hpf} (Normal) Range: 0 - 10 RBC 0-2 {/hpf} (Normal) Range: 0 - 2 WBC 0-5 {/hpf} (Normal) Range: 0 - 5 34-Ozb-056295:37 URINALYSIS, W/ MICRO (61624) Comments: PATIENT NOT FASTINGPERFORMED BY: [employer] [facility] [id number] Microscopic Examination See below: (Normal) Comments: Microscopic was indicated and was performed. Nitrite, Urine Negative (Normal) Urobilinogen,Semi-Qn 0.2 mg/dL (Normal) Range: 0.2-1.0 Bilirubin Negative (Normal) Occult Blood Negative (Normal) Ketones Negative (Normal) Glucose Negative (Normal) Protein Negative (Normal) WBC Esterase 2+ (Abnormal) Appearance Clear (Normal) Urine-Color Yellow (Normal) pH 8.0 (Abnormal) Range: 5.0-7.5 Specific Brookesmith 1.011 (Normal) Range: 1.005-1.030 :37 TSH (50541) Comments: PATIENT NOT FASTINGPERFORMED BY: Jasper WirelessJersey Shore University Medical CenterPnbfnm7890 [facility] [id number] TSH 2.050 {uIU/mL} (Normal) Range: 0.450-4.500 :37 METABOLIC PANEL, COMPREHENSIVE Comments: PATIENT NOT FASTINGPERFORMED BY: Touch-Writer Dcfdir6443 [facility] [id number] (43906) ALT (SGPT) 31 [iU]/L (Normal) Range: 0-32 [...] Glucose, Serum 96 mg/dL (Normal) Range: 65-99 :37 CBC W/AUTO DIFF WBC (30031) Comments: PATIENT NOT FASTINGPERFORMED BY: LabCoJersey Shore University Medical CenterZjjqlv8667 [facility] [id number] Immature Grans (Abs) 0.0 {x10E3/uL} (Normal) Range: [...] (Normal) Range: 3.4-10.8 :08 HgA1C , Office (24467) HgA1C , Office 5.9 % (Normal) Range: 4.6 - 7.1 :49 HGB A1C (35287) Comments: PATIENT WAS FASTINGPERFORMED BY: [employer] Transport BrokerageHarbor Beach Community Hospital6370 [facility] [id number] Hemoglobin A1c 6.1 % (Abnormal) Range: 4.8-5.6 Comments: . Pre-diabetes: 5.7 - 6.4 Diabetes: >6.4 Glycemic control for adults with diabetes: <7.0 :49 TSH (56364) Comments: PATIENT WAS FASTINGPERFORMED BY: LabHarbor [facility] Hospital6370 [facility] [id number] TSH 2.280 {uIU/mL} (Normal) Range: 0.450-4.500 :49 MICROALBUMIN: CREATININE RATIO Comments: PATIENT WAS FASTINGPERFORMED BY: [employer] Transport BrokerageHarbor Beach Community Hospital6370 [facility] [id number] (64649) AND (96928) Microalb/Creat Ratio <3.5 {mg/g_creat} (Normal) Range: 0.0-30.0 Microalbumin, Urine <3.0 ug/mL (Normal) Creatinine, Urine 85.4 mg/dL (Normal) :49 METABOLIC PANEL, COMPREHENSIVE Comments: PATIENT WAS FASTINGPERFORMED BY: LabHarbor Beach [facility] Hospital6370 [facility] [id number] (61099) ALT (SGPT) 19 [iU]/L (Normal) Range: 0-32 [...] Glucose, Serum 101 mg/dL (Abnormal) Range: 65-99 9-Lol-334394:49 LIPID PANEL (30311) Comments: PATIENT WAS FASTINGPERFORMED BY: Cloudbuild70 gate5[facility] [id number] LDL/HDL Ratio 2.3 {ratio_units} (Normal) Range: 0.0-3.2 Comments: LDL/HDL Ratio Men Women 1/2 Avg.Risk 1.0 1.5 Av g.Risk 3.6 3.2 2X Avg.Risk 6.2 5.0 3X Avg.Risk 8.0 6.1 LDL Cholesterol Calc 132 mg/dL (Abnormal) Range: 0-99 VLDL Cholesterol Aneesh 10 mg/dL (Normal) Range: 5-40 HDL Cholesterol 58 mg/dL (Normal) Triglycerides 48 mg/dL (Normal) Range: 0-149 Cholesterol, Total 200 mg/dL (Abnormal) Range: 100-199 2-Cxw-288589:49 CBC W/AUTO DIFF WBC (08157) Comments: PATIENT WAS FASTINGPERFORMED BY: Cloudbuild70 gate5[facility] [id number]; will review at 08/07 appt Immature Grans [...] Microscopic Examination Comments: PATIENT WAS FASTINGPERFORMED BY: LabCoJersey Shore University Medical CenterEojlph2059 [facility] [id number] Bacteria Few (Normal) Mucus Threads Present (Normal) Epithelial Cells (non renal) 0-10 {/hpf} (Normal) Range: 0 - 10 RBC 0-2 {/hpf} (Normal) Range: 0 - 2 WBC 0-5 {/hpf} (Normal) Range: 0 - 5 :48 Blood Glucose , Office (91189) Blood Glucose , Office 75 (Normal) 72-Yiv-013654:48 HgA1C , Office (30473) HgA1C , Office 6.0 % (Normal) Range: 4.6 - 7.1 :18 TSH (55317) Comments: PATIENT WAS FASTINGPERFORMED BY: [facility]6370 [facility] [id number] TSH 1.930 {uIU/mL} (Normal) Range: 0.450-4.500 :18 URINALYSIS, W/ MICRO (00746) Comments: PATIENT WAS FASTINGPERFORMED BY: [facility]6370 [facility] [id number] Microscopic Examination See below: (Normal) Comments: Microscopic was indicated and was performed. Nitrite, Urine Negative (Normal) Urobilinogen,Semi-Qn 0.2 mg/dL (Normal) Range: 0.2-1.0 Bilirubin Negative (Normal) Occult Blood Negative (Normal) Ketones Negative (Normal) Glucose Negative (Normal) Protein Negative (Normal) WBC Esterase 1+ (Abnormal) Appearance Clear (Normal) Urine-Color Yellow (Normal) pH 7.5 (Normal) Range: 5.0-7.5 Specific Brookesmith 1.023 (Normal) Range: 1.005-1.030 :18 MICROALBUMIN: CREATININE RATIO Comments: PATIENT WAS FASTINGPERFORMED BY: [facility]6370 [facility] [id number] (21184) AND (66057) Microalb/Creat Ratio 4.2 {mg/g_creat} (Normal) Range: 0.0-30.0 Microalbumin, Urine 6.3 ug/mL (Normal) Creatinine, Urine 149.4 mg/dL (Normal) :18 METABOLIC PANEL, COMPREHENSIVE Comments: PATIENT WAS FASTINGPERFORMED BY: [facility]6370 [facility] [id number] (20509) ALT (SGPT) 30 [iU]/L (Normal) Range: 0-32 [...] Glucose, Serum 94 mg/dL (Normal) Range: 65-99 9-Uon-124306:18 CBC W/AUTO DIFF WBC (02253) Comments: PATIENT WAS FASTINGPERFORMED BY: LabCoJersey Shore University Medical CenterRjcqbx1849 [facility] [id number] Immature Grans (Abs) 0.0 {x10E3/uL} (Normal) Range: [...] 6.1 {x10E3/uL} (Normal) Range: 3.4-10.8 :02 TSH (52729) Comments: PATIENT WAS FASTINGPERFORMED BY: Touch-WriterLovelace Women's HospitalEgluox7266 [facility] [id number] TSH 2.070 {uIU/mL} (Normal) Range: 0.450-4.500 :02 CBC W/AUTO DIFF WBC Comments: PATIENT WAS FASTINGPERFORMED BY: Touch-WriterJersey Shore University Medical CenterTrqrlj9787 [facility] [id number] Information: [id number] (11602) Immature Grans (Abs) 0.0 {x10E3/uL} (Normal) Range: [...] 3.77-5.28 WBC 5.1 {x10E3/uL} (Normal) Range: 3.4-10.8 :02 MICROALBUMIN: CREATININE RATIO Comments: PATIENT WAS FASTINGPERFORMED BY: Cloudbuild70 [facility] [id number] (77233) AND (77379) Microalb/Creat Ratio 4.5 {mg/g_creat} (Normal) Range: 0.0-30.0 Microalbumin, Urine 5.7 ug/mL (Normal) Range: 0.0-17.0 Creatinine, Urine 127.2 mg/dL (Normal) Range: 15.0-278.0 :02 METABOLIC PANEL, COMPREHENSIVE Comments: PATIENT WAS FASTINGPERFORMED BY: Brisk.iolin6370 [facility] [id number] (54767) ALT (SGPT) 20 [iU]/L (Normal) Range: 0-32 [...] Glucose, Serum 86 mg/dL (Normal) Range: 65-99 43-Dsi-992168:02 LIPID PANEL (67916) Comments: PATIENT WAS FASTINGPERFORMED BY: Cloudbuild70 MovableInkUNC Hospitals [facility] [id number] LDL/HDL Ratio 2.1 {ratio_units} (Normal) Range: 0.0-3.2 [...] Cholesterol, Total 203 mg/dL (Abnormal) Range: 100-199 88-Juo-889674:02 HGB A1C (26941) Comments: PATIENT WAS FASTINGPERFORMED BY: Cloudbuild70 MovableInkUNC Hospitals Hills[facility] [id number] Hemoglobin A1c 6.0 % (Abnormal) Range: 4.8-5.6 Comments: . Pre-diabetes: 5.7 - 6.4 Diabetes: >6.4 Glycemic control for adults with diabetes: <7.0 73-Llw-915237:15 CULTURE, SPUTUM (71925) Comments: PERFORMED BY: LabCoJersey Shore University Medical CenterBduewv7217 [facility] [id number] Information: SRC: SPUTUM Result 1 RRF (Normal) Comments: Routine respiratory jamia Lower Respiratory Culture Final report (Normal) 70-Ndv-563426:45 Rapid Flu (36440 x 2) Influenza A Ag negative (Normal) 21-Zbd-577403:50 HgA1C , Office (02096) HgA1C , Office 6.4 % (Normal) Range: 4.6 - 7.1 81-Zhw-989904:50 Blood Glucose , Office (92395) Blood Glucose , Office 102 (Normal) Comments: non-fasting 5-Flc-445158:00 Urinalysis, Office (94584) UA - LEUKOCYTE ESTERASE Negative (Normal) UA - NITRITE Negative (Normal) URINE UROBILINGN RUBEN TIMED 2 mg/dL (Normal) UA - PROTEIN Negative mg/dL (Normal) UA - PH 6.5 (Normal) UA - BLOOD non-hemolyzed trace (Normal) UA - SPECIFIC GRAVITY 1.025 (Normal) UA - KETONES Negative mg/dL (Normal) UA - BILIRUBIN Negative (Normal) UA - GLUCOSE Negative (Normal) 80-Vrn-77812:41 Microscopic Examination Comments: PATIENT WAS FASTINGPERFORMED BY: LabCoJersey Shore University Medical CenterPiqxgq1136 [facility] [id number] Bacteria Moderate (Abnormal) Mucus Threads Present (Normal) Epithelial Cells (non renal) >10 {/hpf} (Abnormal) Range: 0 - 10 RBC 0-2 {/hpf} (Normal) Range: 0 - 2 WBC >30 {/hpf} (Abnormal) Range: 0 - 5 :19 HgA1C , Office (81021) HgA1C , Office 6.1 % (Normal) Range: 4.6 - 7.1 :19 Blood Glucose , Office (18588) Blood Glucose , Office 98 (Normal) 05-Qiy-162048:19 HgA1C , Office (45546) HgA1C , Office 5.9 % (Normal) Range: 4.6 - 7.1 42-Caj-852058:19 Blood Glucose , Office (16744) Blood Glucose , Office 97 (Normal) 77-Ksl-597745:55 METABOLIC PANEL, COMPREHENSIVE Comments: PATIENT NOT FASTINGPERFORMED BY: Jasper WirelessJersey Shore University Medical CenterVuaqhn1296 [facility] [id number] (64717) ALT (SGPT) 17 [iU]/L (Normal) Range: 0-32 [...] Glucose, Serum 85 mg/dL (Normal) Range: 65-99 49-Tlj-103255:55 CBC WITH MANUAL DIFF Comments: PATIENT NOT FASTINGPERFORMED BY: [employer] [facility] Transport BrokerageHarbor Beach Community Hospital6370 [facility] [id number] Information: [id number]; will review at 3-30 appt (35874) Immature Grans (Abs) 0.0 {x10E3/uL} (Normal) Range: [...] 3.77-5.28 WBC 6.3 {x10E3/uL} (Normal) Range: 3.4-10.8 65-Gqx-37587:41 URINALYSIS, W/ MICRO (26442) Comments: PATIENT WAS FASTINGPERFORMED BY: [facility]6370 [facility] [id number] Microscopic Examination See below: (Normal) Comments: Microscopic was indicated and was performed. Nitrite, Urine Negative (Normal) Urobilinogen,Semi-Qn 0.2 mg/dL (Normal) Range: 0.0-1.9 Bilirubin Negative (Normal) Occult Blood Negative (Normal) Ketones Negative (Normal) Glucose Negative (Normal) Protein Negative (Normal) WBC Esterase 3+ (Abnormal) Appearance Clear (Normal) Urine-Color Yellow (Normal) pH 6.5 (Normal) Range: 5.0-7.5 Specific Brookesmith 1.020 (Normal) Range: 1.005-1.030 :41 MICROALBUMIN: CREATININE RATIO Comments: PATIENT WAS FASTINGPERFORMED BY: Touch-WriterLovelace Women's HospitalBjytbb3350 [facility] [id number] (25759) AND (43878) Microalb/Creat Ratio 9.9 {mg/g_creat} (Normal) Range: 0.0-30.0 Microalbumin, Urine 10.2 ug/mL (Normal) Range: 0.0-17.0 Creatinine, Urine 103.0 mg/dL (Normal) Range: 15.0-278.0 :41 METABOLIC PANEL, COMPREHENSIVE Comments: PATIENT WAS FASTINGPERFORMED BY: Touch-Writer Ensgbl6636 [facility] [id number] (33859) ALT (SGPT) 33 [iU]/L (Abnormal) Range: 0-32 [...] mg/dL (Normal) Range: 65-99 :41 LIPID PANEL (82737) Comments: PATIENT WAS FASTINGPERFORMED BY: Cloudbuild70 [facility] [id number] LDL/HDL Ratio 1.8 {ratio_units} (Normal) Range: 0.0-3.2 [...] MANUAL DIFF Comments: PATIENT WAS FASTINGPERFORMED BY: Cloudbuild70 [facility] [id number] Information: [id number] (47163) Immature Grans (Abs) 0.0 {x10E3/uL} (Normal) Range: [...] 7.1 {x10E3/uL} (Normal) Range: 3.4-10.8 :41 TSH (30368) Comments: PATIENT WAS FASTINGPERFORMED BY: LabCoAdam [place] [id number] [facility] [id number] TSH 2.910 {uIU/mL} (Normal) Range: 0.450-4.500 07-Eeb-305435:29 HEMOGLOBIN GLYCLATED (HGB Comments: PATIENT NOT FASTINGPERFORMED BY: LabCoJersey Shore University Medical CenterLasxvt8985 [facility] [id number] Information: [id number] A1C) (43193) Hemoglobin A1c 6.1 % (Abnormal) Range: 4.8-5.6 Comments: . Increased risk for diabetes: 5.7 - 6.4 Diabetes: >6.4 Glycemic control for adults with diabetes: <7.0 :48 HgA1C , Office (74430) HgA1C , Office 9.0 % (Abnormal) Range: 4.6 - 7.1 :48 Blood Glucose , Office (91443) Blood Glucose , Office 125 (Normal) :08 HgA1C , Office (88387) HgA1C , Office 5.8 % (Normal) Range: 4.6 - 7.1 :08 Blood Glucose , Office (14530) Blood Glucose , Office 88 (Normal) :26 Rapid Flu (13031 x 2) Influenza A Ag negative A and B (Normal) :01 HgA1C , Office (33844) HgA1C , Office 6.0 % (Normal) Range: 4.6 - 7.1 : Blood Glucose , Office (42828) Blood Glucose , Office 79 (Normal) : HgA1C , Office (91439) HgA1C , Office 6.3 % (Normal) Range: 4.6 - 7.1 :00 Blood Glucose , Office (90682) Blood Glucose , Office 99 (Normal) :46 Microscopic Examination Comments: PATIENT WAS FASTINGPERFORMED BY: Cloudbuild70 [facility] [id number] Bacteria None seen (Normal) Mucus Threads Present (Normal) Epithelial Cells (non renal) 0-10 {/hpf} (Normal) Range: 0 - 10 RBC 0-3 {/hpf} (Normal) Range: 0 - 3 WBC 6-10 {/hpf} (Abnormal) Range: 0 - 5 :46 TSH (33620) Comments: PATIENT WAS FASTINGPERFORMED BY: SplitGigs6370 [facility] [id number] TSH 2.400 {uIU/mL} (Normal) Range: 0.450-4.500 :46 URINALYSIS, W/ MICRO (02597) Comments: PATIENT WAS FASTINGPERFORMED BY: Cloudbuild70 [facility] [id number] Microscopic Examination See below: (Normal) Nitrite, Urine Negative (Normal) Urobilinogen,Semi-Qn 0.2 mg/dL (Normal) Range: 0.0-1.9 Bilirubin Negative (Normal) Occult Blood Negative (Normal) Ketones Negative (Normal) Glucose Negative (Normal) Protein Trace (Normal) WBC Esterase 2+ (Abnormal) Appearance Clear (Normal) Urine-Color Yellow (Normal) pH 8.0 (Abnormal) Range: 5.0-7.5 Specific Brookesmith 1.026 (Normal) Range: 1.005-1.030 :46 MICROALBUMIN: CREATININE RATIO Comments: PATIENT WAS FASTINGPERFORMED BY: Timbre [facility] [id number] (06377) AND (25671) Microalb/Creat Ratio 2.4 {mg/g_creat} (Normal) Range: 0.0-30.0 Microalbumin, Urine 3.7 ug/mL (Normal) Range: 0.0-17.0 Creatinine, Urine 151.9 mg/dL (Normal) Range: 15.0-278.0 :46 METABOLIC PANEL, COMPREHENSIVE Comments: PATIENT WAS FASTINGPERFORMED BY: LabCoJersey Shore University Medical CenterAzuxvt7067 [facility] [id number] (89641) ALT (SGPT) 29 [iU]/L (Normal) Range: 0-32 [...] mg/dL (Abnormal) Range: 65-99 :46 LIPID PANEL (49785) Comments: PATIENT WAS FASTINGPERFORMED BY: [employer] Qncktg8544 [facility] [id number] LDL/HDL Ratio 1.8 {ratio_units} (Normal) Range: 0.0-3.2 [...] MANUAL DIFF Comments: PATIENT WAS FASTINGPERFORMED BY: [place]6370 [facility] [id number] Information: SRC: URINE (92383) Immature Grans (Abs) 0.0 {x10E3/uL} (Normal) Range: [...] {x10E3/uL} (Normal) Range: 4.0-10.5 :47 CCP ANTIBODY (04739) Comments: PATIENT WAS FASTINGPERFORMED BY: Touch-WriterAdam [place] [id number] [facility] [id number] BY: [address] [id number] CCP Antibodies IgG/IgA 22 {units} (Abnormal) Range: 0-19 Comments: Negative <20 Weak positive 20 - 39 Moderate positive 40 - 59 Strong positive >59 :47 SED RATE ERYTHROCYTE Comments: PATIENT WAS FASTINGPERFORMED BY: Touch-Writer Fzgjfr3815 [facility] [id number] BY: [address] [id number] (81786) Sedimentation Rate-Westergren 3 mm/h (Normal) Range: 0-40 :47 C-REACTIVE PROTEIN (15711) Comments: PATIENT WAS FASTINGPERFORMED BY: Touch-WriterAdam [place] 5716970 [facility] [id number] BY: [employer] Brokerage[address] [id number] C-Reactive Protein, Quant 6.5 mg/L (Abnormal) Range: 0.0-4.9 :47 RHEUMATOID FACTOR-QUANT Comments: PATIENT WAS FASTINGPERFORMED BY: Touch-WriterAdam [place] [id number] [facility] [id number] BY: [address] [id number] (15593) RA Latex Turbid. 10.2 {IU/mL} (Normal) Range: 0.0-13.9 12-Jzy-95482:47 YAMIL (ANTINUCLEAR ANTIBODY) Comments: PATIENT WAS FASTINGPERFORMED BY: [employer] Transport BrokerageHarbor Beach Community Hospital6370 [facility] [id number] BY: [place] 698827 [facility] [id number] (65187) YAMIL Direct Negative (Normal) :35 HgA1C , Office (97293) HgA1C , Office 6.8 % (Normal) Range: 4.6 - 7.1 :35 Blood Glucose , Office (70387) Blood Glucose , Office 89 (Normal) Comments: PATIENT DID ON HER OWN MACHINE :56 HgA1C , Office (39666) HgA1C , Office 6.0 % (Normal) Range: 4.6 - 7.1 :56 Blood Glucose , Office (47930) Blood Glucose , Office 100 (Normal) 27-Gal-250811:45 Microscopic Examination Comments: PATIENT WAS FASTINGPERFORMED BY: [employer] BrokerageMary Ville [id number] [facility] [id number] Bacteria Many (Abnormal) Mucus Threads Present (Normal) Epithelial Cells (non renal) >10 {/hpf} (Abnormal) Range: 0 - 10 RBC 0-3 {/hpf} (Normal) Range: 0 - 3 WBC 11-30 {/hpf} (Abnormal) Range: 0 - 5 :02 HgA1C , Office (19268) HgA1C , Office 6.1 % (Normal) Range: 4.6 - 7.1 :02 Blood Glucose , Office (66464) Blood Glucose , Office 96 (Normal) 35-Mye-819203:41 CBC With Differential/Platelet Comments: PATIENT WAS FASTINGPERFORMED BY: [facility]6370 [facility] [id number] Immature Grans (Abs) 0.0 {x10E3/uL} (Normal) Range: [...] 3.80-5.10 WBC 5.5 {x10E3/uL} (Normal) Range: 4.0-10.5 89-Uzl-593867:41 Comp. Metabolic Panel (14) Comments: PATIENT WAS FASTINGPERFORMED BY: LabHarbor Beach [facility] Hospital6370 [facility] [id number] ALT (SGPT) 22 [iU]/L (Normal) Range: 0-40 [...] Glucose, Serum 92 mg/dL (Normal) Range: 65-99 34-Bun-991448:41 Lipid Panel With LDL/HDL Comments: PATIENT WAS FASTINGPERFORMED BY: Cerenis TherapeuticsCannon Memorial Hospital [id number] Ratio LDL/HDL Ratio 1.7 {ratio_units} (Normal) Range: 0.0-3.2 LDL Cholesterol Calc 118 mg/dL (Abnormal) Range: 0-99 VLDL Cholesterol Aneesh 13 mg/dL (Normal) Range: 5-40 HDL Cholesterol 71 mg/dL (Normal) Comments: According to ATP-III Guidelines, HDL-C >59 mg/dL is considered anegative risk factor for CHD. Triglycerides 65 mg/dL (Normal) Range: 0-149 Cholesterol, Total 202 mg/dL (Abnormal) Range: 100-199 [id number]-[id number] Microalb/Creat Ratio, Randm Ur Comments: PATIENT WAS FASTINGPERFORMED BY: [facility] [id number] Microalb/Creat Ratio 5.5 {mg/g_creat} (Normal) Range: 0.0-30.0 Microalbumin, Urine 9.9 ug/mL (Normal) Range: 0.0-17.0 Creatinine, Urine 181.2 mg/dL (Normal) Range: 15.0-278.0 [id number] Microscopic Examination Comments: PATIENT WAS FASTINGPERFORMED BY: [employer] [id number] [facility] [id number] Bacteria Few (Normal) Mucus Threads Present (Normal) Epithelial Cells (non >10 {/hpf} Range: 0 - 10 renal) (Abnormal) RBC 0-3 {/hpf} (Normal) Range: 0 - 3 WBC 0-5 {/hpf} (Normal) Range: 0 - 5 TSH 2.900 {uIU/mL} Comments: PATIENT WAS FASTINGPERFORMED BY: [employer] [id number] [facility] [id number] 1:41 (Normal) Range: 0.450-4.500 [id number]:41 Urinalysis, Complete Comments: PATIENT WAS FASTINGPERFORMED BY: [employer] [id number] [facility] [id number] Microscopic Examination See below: (Normal) Nitrite, Urine Negative (Normal) Urobilinogen,Semi-Qn 0.2 mg/dL (Normal) Range: 0.0-1.9 Bilirubin Negative (Normal) Occult Blood Negative (Normal) Ketones Negative (Normal) Glucose Negative (Normal) Protein Negative (Normal) WBC Esterase 1+ (Abnormal) Appearance Clear (Normal) Urine-Color Yellow (Normal) pH 6.5 (Normal) Range: 5.0-7.5 Specific Brookesmith 1.024 (Normal) Range: 1.005-1.030 79-Gam-039627:45 URINALYSIS, W/ MICRO (11340) Comments: PATIENT WAS FASTINGPERFORMED BY: Touch-Writer Qwzjmi1097 [facility] [id number] Microscopic Examination See below: (Normal) Nitrite, Urine Negative (Normal) Urobilinogen,Semi-Qn 0.2 mg/dL (Normal) Range: 0.0-1.9 Bilirubin Negative (Normal) Ketones Negative (Normal) Occult Blood Negative (Normal) Glucose Negative (Normal) Protein 1+ (Abnormal) WBC Esterase 1+ (Abnormal) Appearance Turbid (Abnormal) Urine-Color Yellow (Normal) pH 8.5 (Abnormal) Range: 5.0-7.5 Specific Brookesmith 1.027 (Normal) Range: 1.005-1.030 :45 TSH (10503) Comments: PATIENT WAS FASTINGPERFORMED BY: Jasper WirelessLovelace Women's HospitalZqdgll7423 [facility] [id number] TSH 1.890 {uIU/mL} (Normal) Range: 0.450-4.500 21-Zqb-199307:45 MICROALBUMIN: CREATININE RATIO Comments: PATIENT WAS FASTINGPERFORMED BY: Jasper WirelessLovelace Women's HospitalRpgcso6553 [facility] [id number] (85419) AND (22693) Microalb/Creat Ratio 9.5 {mg/g_creat} (Normal) Range: 0.0-30.0 Creatinine, Urine 186.1 mg/dL (Normal) Range: 15.0-278.0 Microalbumin, Urine 17.7 ug/mL (Abnormal) Range: 0.0-17.0 :45 METABOLIC PANEL, COMPREHENSIVE Comments: PATIENT WAS FASTINGPERFORMED BY: Jasper WirelessJersey Shore University Medical CenterQsmwyj8573 [facility] [id number] (90102) ALT (SGPT) 21 [iU]/L (Normal) Range: 0-40 [...] Glucose, Serum 98 mg/dL (Normal) Range: 65-99 :45 LIPID PANEL (18249) Comments: PATIENT WAS FASTINGPERFORMED BY: [employer]70 [facility] [id number] LDL/HDL Ratio 1.6 {ratio_units} (Normal) Range: 0.0-3.2 LDL Cholesterol Calc 101 mg/dL (Abnormal) Range: 0-99 Comments: Please note reference interval change HDL Cholesterol 62 mg/dL (Normal) Comments: According to ATP-III Guidelines, HDL-C >59 mg/dL is considered anegative risk factor for CHD. VLDL Cholesterol Aneseh 18 mg/dL (Normal) Range: 5-40 Triglycerides 92 mg/dL (Normal) Range: 0-149 Comments: Please note reference interval change Cholesterol, Total 181 mg/dL (Normal) Range: 100-199 Comments: Please note reference interval change :45 CBC WITH MANUAL DIFF Comments: PATIENT WAS FASTINGPERFORMED BY: Touch-WriterJersey Shore University Medical CenterQaqzge7917 [facility] [id number] Information: [id number] (82866) Immature Grans (Abs) 0.0 {x10E3/uL} (Normal) Range: [...] (Normal) Range: 4.0-10.5 :09 HgA1C , Office (40254) HgA1C , Office 6.0 % (Normal) Range: 4.6 - 7.1 :09 Blood Glucose , Office (03001) Blood Glucose , Office 79 (Normal) :33 Blood Glucose , Office (74330) Blood Glucose , Office 98 (Normal) :33 HgA1C , Office (36612) HgA1C , Office 6.0 % (Normal) Range: 4.6 - 7.1 :39 CBC & PLATELETS (AUTO) Comments: PATIENT WAS FASTINGPERFORMED BY: LabHar[facility] Hospital6370 [facility] [id number] (05384) Platelets 242 {x10E3/uL} (Normal) Range: 140-415 RDW 13.8 % (Normal) Range: 11.7-15.0 MCHC 33.2 g/dL (Normal) Range: 32.0-36.0 MCH 29.9 pg (Normal) Range: 27.0-34.0 Hematocrit 40.7 % (Normal) Range: 34.0-44.0 MCV 90 fL (Normal) Range: 80-98 Hemoglobin 13.5 g/dL (Normal) Range: 11.5-15.0 RBC 4.51 {x10E6/uL} (Normal) Range: 3.80-5.10 WBC 4.8 {x10E3/uL} (Normal) Range: 4.0-10.5 71-Mss-118900:39 METABOLIC PANEL, Comments: PATIENT WAS FASTINGPERFORMED BY: LabCoJersey Shore University Medical CenterKwwgdr6305 [facility] [id number] Information: [id number] COMPREHENSIVE (77508) ALT (SGPT) 20 [iU]/L (Normal) Range: 0-40 [...] (THYROID STIMULATING Comments: PATIENT WAS FASTINGPERFORMED BY: Cloudbuild70 [employer] [facility] [id number] HORMONE) (22282) TSH 2.830 {uIU/mL} (Normal) Range: 0.450-4.500 :39 MICROALBUMIN URINE QUANT Comments: PATIENT WAS FASTINGPERFORMED BY: Cloudbuild70 [facility] [id number] (11681) Creatinine, Urine 107.7 mg/dL (Normal) Range: 15.0-278.0 Microalb/Creat Ratio 4.0 {mg/g_creat} (Normal) Range: 0.0-30.0 Microalbumin, Urine 4.3 ug/mL (Normal) Range: 0.0-17.0 :39 LIPID PANEL (38615) Comments: PATIENT WAS FASTINGPERFORMED BY: Cloudbuild70 [facility] [id number]; appt 06/25/11 LDL/HDL Ratio 1.9 {ratio_units} (Normal) Range: 0.0-3.2 LDL Cholesterol Calc 108 mg/dL (Abnormal) Range: 0-99 VLDL Cholesterol Aneesh 15 mg/dL (Normal) Range: 5-40 HDL Cholesterol 56 mg/dL (Normal) Comments: According to ATP-III Guidelines, HDL-C >59 mg/dL is considered anegative risk factor for CHD. Triglycerides 76 mg/dL (Normal) Range: 0-149 Cholesterol, Total 179 mg/dL (Normal) Range: 100-199 33-Obq-814198:03 HEMOGLOBIN GLYCLATED (HGB Comments: PATIENT NOT FASTINGPERFORMED BY: [employer] Transport BrokerageHarbor Beach Community Hospital6370 [facility] [id number] Information: [id number] A1C) (99758) Hemoglobin A1c 6.0 % (Abnormal) Range: 4.8-5.6 Comments: Increased risk for diabetes: 5.7 - 6.4 Diabetes: >6.4 Glycemic control for adults with diabetes: <7.0 99-Ytg-410106:42 Blood Glucose , Office (08334) Blood Glucose , Office 120 (Normal) Comments: patient reported. Showed me on her meter and declined to have done in office today. 89-Vmo-972405:32 Microscopic Examination Comments: PATIENT WAS FASTINGPERFORMED BY: [facility] [facility] Transport BrokerageHarbor Beach Community Hospital6370 [facility] [id number] Bacteria Moderate (Abnormal) Mucus Threads Present (Normal) Epithelial Cells (non renal) 0-10 {/hpf} (Normal) Range: 0 - 10 RBC 0-3 {/hpf} (Normal) Range: 0 - 3 WBC 0-5 {/hpf} (Normal) Range: 0 - 5 60-Ibx-266268:32 URINALYSIS, W/ MICRO (22385) Comments: PATIENT WAS FASTINGPERFORMED BY: [facility] [facility] BrokerageHar[facility] Beach [facility] Hospital6370 [facility] [id number] Microscopic Examination See below: (Normal) Bilirubin Negative (Normal) Microscopic Examination MICRON (Normal) Comments: Microscopic follows if indicated. Nitrite, Urine Negative (Normal) Urobilinogen,Semi-Qn 0.2 mg/dL (Normal) Range: 0.0-1.9 Glucose Negative (Normal) Ketones Negative (Normal) Occult Blood Negative (Normal) Appearance Clear (Normal) Protein Negative (Normal) WBC Esterase Negative (Normal) pH 7.0 (Normal) Range: 5.0-7.5 Urine-Color Yellow (Normal) Specific Brookesmith 1.020 (Normal) Range: 1.005-1.030 :32 METABOLIC PANEL, COMPREHENSIVE Comments: PATIENT WAS FASTINGPERFORMED BY: [facility] [employer] [facility] Transport BrokerageHar[facility] Beach Community Hospital6370 [facility] [id number] (99710) ALT (SGPT) 18 [iU]/L (Normal) Range: 0-40 [...] Glucose, Serum 90 mg/dL (Normal) Range: 65-99 03-Pzb-955268:32 CBC WITH MANUAL DIFF Comments: PATIENT WAS FASTINGPERFORMED BY: [facility] Ptabjm6855 [facility] [id number] Information: [id number] (02704) Immature Grans (Abs) 0.0 {x10E3/uL} (Normal) Range: [...] 3.80-5.10 WBC 5.0 {x10E3/uL} (Normal) Range: 4.0-10.5 63-Pil-180344:32 TSH (85336) Comments: PATIENT WAS FASTINGPERFORMED BY: [facility] Przgli4662 [facility] [id number] TSH 3.890 {uIU/mL} (Normal) Range: 0.450-4.500 35-Ggw-878581:32 MICROALBUMIN: CREATININE RATIO Comments: PATIENT WAS FASTINGPERFORMED BY: [facility] Pfvddi9029 [facility] [id number] (30386) AND (80213) Microalb/Creat Ratio 2.7 {mg/g_creat} (Normal) Range: 0.0-30.0 Microalbumin, Urine 3.2 ug/mL (Normal) Range: 0.0-17.0 Creatinine, Urine 117.9 mg/dL (Normal) Range: 15.0-278.0 08-Uvx-730410:32 LIPID PANEL (90331) Comments: PATIENT WAS FASTINGPERFORMED BY: LabCoJersey Shore University Medical CenterDcebly7180 [facility] [id number] LDL/HDL Ratio 1.8 {ratio_units} (Normal) Range: 0.0-3.2 LDL Cholesterol Calc 115 mg/dL (Abnormal) Range: 0-99 VLDL Cholesterol Aneesh 16 mg/dL (Normal) Range: 5-40 HDL Cholesterol 64 mg/dL (Normal) Comments: According to ATP-III Guidelines, HDL-C >59 mg/dL is considered anegative risk factor for CHD. Triglycerides 79 mg/dL (Normal) Range: 0-149 Cholesterol, Total 195 mg/dL (Normal) Range: 100-199 65-Yag-907657:29 PELVIC (NON ) Radiology See Note Comments: [...] on 08/10/10 1410 Sign by: Lizzy Day 81-Hrc-23839:00 TRANSVAGINAL NON- Radiology See Note Comments: ADDENDUM [...] 6 months is advised Dictated on 08/09/10 143 by Nicole Day MDribed on 17/06 by ITS IMPORTSign by Lizzy Day MD on 08/17/1042 Sign by: Lizzy Moore MD Addendum CLINICAL:Dysfunctional [...] months is advised Dictated on 08/28/102202 by Nicole Day MDribed on 08/28/102201 by ITS IMPORTSi gn by Lizzy Day MD on 01/02/11 1702 Sign by: Shay TOBAR,Lizzy :44 PTT (ACTIVATED PARTIAL Comments: PATIENT NOT FASTINGPERFORMED BY: [facility]6370 [facility] [id number] THROMBOPLASTIN TIME) (52882) aPTT 29 {sec} (Normal) Range: 24-33 Comments: This test has not been validated for monitoring unfractionated heparintherapy. aPTT-based therapeutic ranges for unfractionated heparintherapy have not been established. For general guidelines onHeparin monitoring, refer to the [facility] Directory of Services. :44 PT (PROTHROMBIN TIME) (00316) Comments: PATIENT NOT FASTINGPERFORMED BY: [facility]6370 [facility] [id number] Prothrombin Time 10.5 {sec} (Normal) Range: 8.7-11.5 INR 1.0 (Normal) Range: 0.8-1.2 Comments: Reference interval is for non-anticoagulated patients. . Suggested INR therapeutic range for Vitamin K anta gonist therapy: Standard Dose (moderate intensity therapeutic range): 2.0 - 3.0 Higher intensity therapeutic range 2.5 - 3.5 :44 PROLACTIN (03635) Comments: PATIENT NOT FASTINGPERFORMED BY: [facility]6370 [facility] [id number] Prolactin 14.9 ng/mL (Normal) Range: 4.8-23.3 :44 METABOLIC PANEL, Comments: PATIENT NOT FASTINGPERFORMED BY: [facility]6370 [facility] [id number] Information: [id number] COMPREHENSIVE (64517) ALT (SGPT) 22 [iU]/L (Normal) Range: 0-40 [...] 88 mg/dL (Normal) Range: 65-99 :44 TSH (35745) Comments: PATIENT NOT FASTINGPERFORMED BY: [facility] Atewyj4666 [facility] [id number] TSH 2.410 {uIU/mL} (Normal) Range: 0.450-4.500 :44 CBC (AUTO) (06505) Comments: PATIENT NOT FASTINGPERFORMED BY: [facility] Kalbbt9947 [facility] [id number] MCHC 33.6 g/dL (Normal) Range: 32.0-36.0 Platelets 295 {x10E3/uL} (Normal) Range: 140-415 RDW 14.0 % (Normal) Range: 11.7-15.0 Hematocrit 38.7 % (Normal) Range: 34.0-44.0 MCH 30.1 pg (Normal) Range: 27.0-34.0 MCV 90 fL (Normal) Range: 80-98 Hemoglobin 13.0 g/dL (Normal) Range: 11.5-15.0 RBC 4.32 {x10E6/uL} (Normal) Range: 3.80-5.10 WBC 7.7 {x10E3/uL} (Normal) Range: 4.0-10.5 :23 HgA1C , Office (48939) HgA1C , Office 6.1 % (Normal) Range: 4.6 - 7.1 :23 Blood Glucose , Office (08211) Blood Glucose , Office 100 (Normal) :18 CBC With Differential/Platelet Comments: PATIENT WAS FASTINGPERFORMED BY: [facility] Bzyosk9199 [facility] [id number] Immature Grans (Abs) 0.0 {x10E3/uL} (Normal) Range: [...] 3.80-5.10 WBC 6.1 {x10E3/uL} (Normal) Range: 4.0-10.5 39-Iaq-408148:18 Comp. Metabolic Panel (14) Comments: PATIENT WAS FASTINGPERFORMED BY: [facility] Jmxquz0655 [facility] [id number] ALT (SGPT) 18 [iU]/L (Normal) Range: 0-40 [...] Glucose, Serum 99 mg/dL (Normal) Range: 65-99 87-Ohv-093292:18 Lipid Panel With LDL/HDL Comments: PATIENT WAS FASTINGPERFORMED BY: Jasper WirelessLovelace Women's HospitalZjphsa2287 [facility] [id number] Ratio HDL Cholesterol 53 mg/dL (Normal) Comments: [...] 2.770 {uIU/mL} Comments: PATIENT WAS FASTINGPERFORMED BY: Jasper WirelessJersey Shore University Medical CenterHaulae0451 [facility] [id number] :18 (Normal) Range: 0.450-4.500 :48 HgA1C , Office (85856) HgA1C , Office 6.2 % (Normal) Range: 4.6 - 7.1 :48 Blood Glucose , Office (01931) Blood Glucose , Office 97 (Normal) :46 CBC With Differential/Platelet Comments: PATIENT WAS FASTINGPERFORMED BY: Jasper WirelessJersey Shore University Medical CenterMcaewb6625 [facility] [id number] Baso (Absolute) 0.0 {x10E3/uL} (Normal) Range: 0.0-0.2 [...] change for the pediatric CBC With Differential/Platelet 57-Hlk-26890:46 Comp. Metabolic Panel (14) Comments: PATIENT WAS FASTINGPERFORMED BY: LabCoJersey Shore University Medical CenterIwzlfj5045 [facility] [id number] A/G Ratio 1.5 (Normal) Range: 1.1-2.5 Albumin, [...] Serum 103 mg/dL (Abnormal) Range: 65-99 If -Romanian >59 mL/min/1.73 Comments: Note: Persistent reduction for [...] Sodium, Serum 139 mmol/L (Normal) Range: 135-145 08-Bez-45147:46 Lipid Panel With LDL/HDL Comments: PATIENT WAS FASTINGPERFORMED BY: [employer]70 [facility] [id number] Ratio Cholesterol, Total 179 mg/dL (Normal) Range: [...] Cholesterol Aneesh 14 mg/dL (Normal) Range: 5-40 05-Arf-23220:46 Thyroxine (T4) Free, Direct, S Comments: PATIENT WAS FASTINGPERFORMED BY: [employer] Obqicd3534 [facility] [id number] T4,Free(Direct) 1.13 ng/dL Range: 0.61-1.76 (Normal) 30-Jul-2008 Triiodothyronine,Free,Seru 3.0 pg/mL (Normal) Comments: PATIENT WAS FASTINGPERFORMED BY: LabCoJersey Shore University Medical CenterGkydjy9611 [facility] [id number] 9:46 m Range: 2.3-4.2 30-Jul-2008 TSH 2.949 {uIU/mL} Comments: PATIENT WAS FASTINGPERFORMED BY: LabHar[facility] Hospital6370 [facility] [id number] 9:46 (Normal) Range: 0.450-4.500 57-Fsa-22973:43 Blood Glucose , Office (17230) Comments: done>Wf. Blood Glucose , Office 100 (Normal) 3-Bes-946781:30 GLUP 105 mg/dL (Normal) Comments: GLU,2HPPG 75gm GLUC PPG GLUP from 1208:Q04475X. 3-Noz-023143:24 ESR SED RATE 31 mm/h (Abnormal) Range: 0-30 0-Yjq-305362:24 HGB A1C 6.7 % (Abnormal) Range: 4.0-6.3 Comments: The methodology of Hgb A1C has changed to Kacie BehringDimension RXL. No significant changes in patientresults are expected. The reference range remains the same. 1-Xjo-311040:03 BREAST UNILATERAL US () Radiology Report See Note (Normal) Comments: Exam Number: [id number] TARGETED RIGHT BREAST ULTRASOUND HISTORYAbnormal mammogram. High [...] Report See Note (Normal) Comments: Exam Number: [id number] TARGETED RIGHT BREAST ULTRASOUND HISTORYAbnormal mammogram. High-resolution real-time linear images of the upper half of the leftbreast were obtained. In the upper outer quadra nt of the rightbreast at approximately 9:30 and 4 to 5 cm from the nipple, there vrea hypoechoic nodule identified measuring 0.9 x 0.6 [...] werealso examined with computer-aide d detection software ([employer], [employer] Reported By: PHYLLIS HEWITT M.D. :36 [facility] DIGITAL & CAD Radiology Report See Note (Normal) Comments: Exam Number: [id number] MAMMOGRAM, BILATERAL SCREENING DIGITAL AND CAD HISTORYRoutine [...] patient reported a previous study performed at [facility]. That examination was too old [...] mammograms werealso examined with computer-aided detection software ([employer], [employer] Reported By: PHYLLIS HEWITT M.D. :26 H pylori, IgM, IgG, IgA Ab Comments: PERFORMED BY: Lab[facility] Hospital6370 [facility] [id number] H. pylori IgG, Abs <0.9 U/mL (Normal) [...] fibrillation, rapid Atrial fibrillation, rapid : Reviewed Manager Solution Letter Indication: Atrial fibrillation, rapid Benign essential [...] Diarrhea Unspecified osteoarthritis, unspecified site : Reviewed Manager Solution Letter Indication: Unspecified osteoarthritis, unspecified site Controlled [...] II diabetes mellitus Planned Observations HGB A1C (47807)Indication: Controlled diabetes mellitus type II without complication On: 2-Ngp-526343:27 Request Cologuard - Strool Based DNA Test, CRC SCREEN (00394)Indication: Screening for colon cancer On: 80-Czw-325936:51 Request TSH (31335)Indication: Controlled diabetes mellitus type II without complication On: 7-Lww-822832:53 Request URINALYSIS, W/ MICRO (51252)Indication: Controlled diabetes mellitus type II without complication On: 1-Cob-305046:53 Request MICROALBUMIN: CREATININE RATIO (21597) AND (13314)Indication: Controlled diabetes mellitus type II without complication On: 5-Waa-512355:53 Request METABOLIC PANEL, COMPREHENSIVE (86162)Indication: Controlled diabetes mellitus type II without complication On: 6-Lql-811443:53 Request LIPOPROTEIN, BLD, BY NMR (40764)Indication: Controlled diabetes mellitus type II without complication On: 2-Nbd-129282:53 Request LIPID PANEL (11362)Indication: Controlled diabetes mellitus type II without complication On: 2-Bkt-831647:53 Request CBC W/AUTO DIFF WBC (80688)Indication: Controlled diabetes mellitus type II without complication On: 9-Fkc-036657:52 Request HGB A1C (94427)Indication: Controlled diabetes mellitus type II without complication On: 22-Mar-20178:18 Request LIPID PANEL (22201)Indication: Hypercholesteremia On: 22-Mar-20178:17 Request HGB A1C (17262)Indication: Uncontrolled type II diabetes mellitus On: 31-Oct-2016 Request POTASSIUM SERUM (73118)Indication: High potassium On: 9-Tga-768281:06 Request HELICO PYLORI, STOOL, INFCT ANTIGEN (88272)Indication: NSAID long-term use On: 8-Rsc-158516:05 Request TSH (54498)Indication: Uncontrolled type II diabetes mellitus On: 6-Tik-077699:58 Request TSH (67980)Indication: Pain in unspecified joint On: 21-Isr-983627:41 Request CBC WITH MANUAL DIFF (71012)Indication: Pain in unspecified joint On: 44-Afk-884285:41 Request METABOLIC PANEL, COMPREHENSIVE (63010)Indication: Pain in unspecified joint On: 65-Vsi-117449:41 Request URINALYSIS, W/ MICRO (45182)Indication: Benign essential hypertension On: 23-Pty-945969:06 Request MICROALBUMIN: CREATININE RATIO (04877) AND (96628)Indication: Benign essential hypertension On: 08-Aft-153576:06 Request URINE CED CULTURE-IDENTIFICATN (41194)Indication: Other abnormal finding of urine On: 84-Kij-790254:56 Request TSH (11993)Indication: Controlled diabetes mellitus type II without complication On: :41 Request URINALYSIS, W/ MICRO (33347)Indication: Benign essential hypertension On: 8-Hlg-184484:41 Request MICROALBUMIN: CREATININE RATIO (93498) AND (26329)Indication: Benign essential hypertension On: 4-Rix-668826:41 Request METABOLIC PANEL, COMPREHENSIVE (23415)Indication: Benign essential hypertension On: :41 Request LIPID PANEL (02356)Indication: Benign essential hypertension On: :41 Request CBC WITH MANUAL DIFF (81869)Indication: Benign essential hypertension On: :41 Request TSH (20021)Indication: Uncontrolled type II diabetes mellitus On: :37 Request METABOLIC PANEL, COMPREHENSIVE (35027)Indication: Uncontrolled type II diabetes mellitus On: :36 Request MICROALBUMIN: CREATININE RATIO (62948) AND (81887)Indication: Uncontrolled type II diabetes mellitus On: :36 Request LIPID PANEL (17561)Indication: Uncontrolled type II diabetes mellitus On: :36 Request CBC WITH MANUAL DIFF (07231)Indication: Uncontrolled type II diabetes mellitus On: :36 Request H. PYLORI BLD TEST UREASE NON-RAD (77083)Indication: Epigastric pain On: 28-Pgj-50039:09 Request Planned Procedures DRAIN/INJECT, JOINT/BURSA On: 31-Jul-2018 Intent ()By: Nina Jiménez DO, DO, Kathleen DRAIN/INJECT, JOINT/BURSA On: 31-Jul-2018 Intent ()By: Nina Jiménez DO, DO, Kathleen X-RAY OF KNEE, TWO VIEWS On: 21-Jul-2018 Intent (21060)By: Nina Jiménez DO Comments: L Nina Jiménez DO X-RAY OF KNEE, TWO VIEWS On: 21-Jul-2018 Intent (17586)By: Nina Jiménez DO Comments: R Nina Jiménez DO ELECTROCARDIOGRAM, COMPLETE (ECG) On: 21-Jul-2018 Intent (01350)By: Nina Jiménez DO Comments: nsr no acute chg Nina Jiménez DO Bone Density StudyBy: Tino ALONSO, On: 03-Jul-2018 Intent Nina Stover DO MAMMOGRAM BREAST BILATERAL On: 03-Jul-2018 Intent SCREENING DIGITAL (25206)By: Nina Jiménez DO, DO, Kathleen CT SCAN OF ABDOMEN AND PELVIS WITH On: 26-Jul-2017 Intent CONTRAST (01145)By: Nina Jiménez DO, DO, Kathleen ELECTROCARDIOGRAM, COMPLETE (ECG) On: 26-Jul-2017 Intent (65600)By: Nina Jiménez DO Comments: nsr no acute chg Nina Jiménez DO MAMMOGRAM, SCREENING, BOTH BREAST On: 01-Nov-2016 Intent (03153)By: Nina Jiménez DO, DO, Kathleen Echo CompleteBy: Tino ALONSO, On: 18-May-2016 Intent Nina Stover DO Comments: dr mckee Holter Monitor 24 hrsBy: Tino On: 04-May-2016 Intent Nina ALONSO DO, Kathleen ELECTROCARDIOGRAM, COMPLETE (ECG) On: 04-May-2016 Intent (21982)By: Nina Jiménez DO Comments: ? a fib vs atrial tachycardia - df rev as well -- thought maybe some flutter trying to breakthru where we see P waves -- pt asx and hemodynamically stable Nina Jiménez DO MRI ANKLE LEFT WO CONTRAST On: 14-Nov-2015 Intent (46354)By: Nina Jiménez DO, DO, Kathleen Aerosol Treatment (68789)By: Israel On: 08-Dec-2014 Intent Nette VASQUEZ EKG (30041)By: Tino ALONSO, On: 16-Aug-2014 Intent Nina Stover DO Comments: nsr no acute chg Upper EndoscopyBy: Kacey Patton CNP On: 09-Jul-2014 Intent E Endoscopy - OtherBy: Abdi WHITLOCK, On: 09-Jul-2014 Intent Kacey Sanchez MRI - Knee(s) - RightBy: Abdi On: 09-Jul-2014 Intent Kacey WHITLOCK Endoscopy - Small Bowel SeriesBy: On: 21-Jun-2014 Intent Kacey Patton CNP Nuclear Medicine - HIDA w/CPKBy: On: 21-Jun-2014 Intent Kacey Patton CNP Ultrasound - GallbladderBy: Abdi On: 21-Jun-2014 Intent Kacey WHITLOCK Comments: in normal proceed with Hida scan Eprescribed prescriptions On: 13-Jan-2014 Intent (G8553)By: Nina Jiménez DO, DO, Nina Eprescribed prescriptions On: 18-Sep-2013 Intent (G8553)By: Sushila Harris Eprescribed prescriptions On: 08-Jul-2013 Intent (G8553)By: Geovanna Nuñez LPN EKG (72079)By: Trisha Emery MD On: 03-Jul-2013 Intent Comments: see scanned document of test done to see results reviewed today with patient Eprescribed prescriptions On: 08-Apr-2013 Intent (G8553)By: Geovanna Nuñez LPN EKG (79071)By: Tino ALONSO, On: 18-Aug-2012 Intent Nina Stover DO Comments: nsr no acute chg Eprescribed prescriptions On: 18-Aug-2012 Intent (G8553)By: Lidya Stephenson LPN Eprescribed prescriptions On: 08-May-2012 Intent (G8553)By: Nina Jiménez DO, DO, Nina Eprescribed prescriptions On: 08-May-2012 Intent (G8553)By: Geovanna Nuñez LPN CT - Neck (IV Contrast Needed)By: On: 28-Oct-2011 Intent Tino ALONSO, Nina Jiménez DO, Comments: follow up original image done at [facility]-- ( mri cervical spine) Nina EKG (51441)By: Tino ALONSO, On: 25-Jul-2011 Intent Nina Stover DO Comments: NSR NO ACUTE CHG Ultrasound - PelvisBy: Tino ALONSO, On: 01-Dec-2010 Intent Nina Stover DO Ultrasound - PelvisBy: Tino ALONSO, On: 02-Aug-2010 Intent Nina Stover DO Comments: may do vaginal probe if need to EKG (17429)By: Tino ALONSO, On: 16-Feb-2010 Intent Nina Stover DO Comments: nsr no acute chnages FLU VAC, SPLIT, >3 YEARS, On: 29-Jul-2008 Intent INTRAMUSC (95358)By: Nina Jiménez DO, DO, Kathleen IMMUNIZ ADMNIN, 1 VAC, SNGL/COMBO On: 29-Jul-2008 Intent (94716)By: Nina Jiménez DO Comments: lot # [id number]- 02/15/0955hmdo-VWBKhzpos-ADcflc- 0.5ML chenlillie tolerated well Tino ALONSONina IMMUNIZ ADMNIN, 1 VAC, SNGL/COMBO On: 29-Jul-2008 Intent (19692)By: Nina Jiménez DO Comments: lot # [id number]- 12/27/20196307rvbs-FTMIkhnpo-IDudhx- O.5ML chenlillie tolerated well Tino ALONSONina PNEUM VAC ADLT/IMUMNOSPR, On: 29-Jul-2008 Intent SBC/INTRM (71221)By: Nina Jiménez DO, DO, Kathleen EKG (32261)By: Tino ALONSO, On: 29-Jul-2008 Intent Nina Stover DO MAMMOGRAM, SCREENING, BOTH BREASTS On: 04-Jun-2008 Intent (89975)By: Jojo Santoyo Instructions Name Dates Details Non-smoker [...] Pain,Unspecified Site (789.00) [facility] alv[facility] guarantor
--- OUTSIDE RECORDS SUMMARY | 2018-09-13 21:10 | XMS RPT_ITS | Continuity of Care Document ---
:1955 Author Organization [facility] Address [facility] [address] Phone Care Team Providers Name Role Phone [...] Quantity: 90 {Tablet} Refills: 3 Ordered:15-Jan-2018 Nathaly iJménez DO, DO, Kathleen Start : 15-Jan-2018 Active [...] Quantity: 90 {Capsule} Refills: 3 Ordered:13-Jan-2014 Geovanna Nueñz LPN Start : 12-Oct-2013 End : 13-Jan-2014 [...] : 08-Jun-2008 Discontinued Comments:This order discontinued per [facility]. PENLAC, 8% (External Solution) apply Solution topically [...] VAC ADLT/IMUMNOSPR, Date: 14-Nov-2015 Completed 14-Nov-2015 SBC/INTRM (99915) Comments: Lot:[id number]:04/05/17Dose:0.5mgRoute:imSite:david Boo By:WILLI signed Cardioversion Completed Comments: 2015 Colonoscopy Completed Comments: 07-27-08 - Diverticulitis Diverticulitis (562.11) Completed Comments: Colonoscopy 07-27-08 lt finger sx Completed Comments: 03/01 Date Value Details 22-Apr-2018 12 Lead Electrocardiogram Result: Comments: See Note; NOTES: [facility] Cardiovascular Services [address] [place] [address] 12 Lead EKG 04/19/18 1456 MR#: [id number] Acct: [id number] Name: NINA AYON ep #: [id number] : 1955 62 From: Bright Peng MD [...] Borderline ECG Confirmed by BRIGHT PENG ([id number]), city editor OBDULIO PURDY ([id number]) on 04/22/2018 1:27:45 PM Referred By: JOHN Confirmed By: BRIGHT PENG 04/22/18 1327 Date Bright Peng MD CC: Nina Jiménez DO; Cedric Sylvester MD Signed 19-Apr-2018 Emergency Department Summary Result: Comments: See Note; NOTES: [facility] Medical Records Department [address] [place] [address] Emergency Department Summary 04/19/18 1653 MR#: [id number] Acct: [id number] Name: NINA AYON Rep #: [id number] : 1955 62 From: Cedric Sylvester MD [...] pleuritic component This note was generated with Ozmosis dictation software. It may contain incorrect words, [...] your Primary Care Provider. Call [facility] ([phone]) or report to the closest Emergency Room. Call 911 if necessary. 04/19/18 1701 <Electronically signed by Cedric Sylvester MD> Date Cedric Sylvesetr MD Cosig ner Signature (If Indicated): Date CC: Nina Jiménez DO 19-Apr-2018 Chest 1 View (Portable) Result: Comments: See Note; NOTES: [facility] Imaging Services [address] [place] [address] Chest 1 View (Portable) MR#: [id number] Acct: [id number] Name: NINA AYON Rep #: [id number] : 1955 F 62 From: Dolly Hardy MD PCP: Nina Jiménez DO Status: PRE ER Study: Chest 1 View (Portable) Date of Exam: 04/19/18 Exam# [id number] Ordering Dr: Cedric Sylvester MD STUDY: X-RAY [...] CC: Nina Jiménez DO; Cedric Sylvester MD Maintenance Service Technician: Signed 10-Feb-2018 Cardiology Visit Report Result: Comments: See Note; NOTES: [facility] [address] [place] [address] OFFICE VISIT Date of Service: 02/10/18 MR#: [id number] Acct: [id number] Name: NINA AYON Rep #: [id number] : 1955 Provider: KATHY Snider Age/Sex: 62/F [place] [facility] Status: Signed HPI HPI Details: NINA [...] insufficiency (Chronic) Paroxysmal atr ial fibrillation (Acute) detention (current) use of anticoagulants (Chronic) GERD (gastroesophageal [...] underwent a transthoracic echocardiogram on 11/07/2016 at [facility]. The results are as noted below. 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 MINIMUM HEART RATE WAS 92 BPM [...] We will continue to monitor this. 7. detention (current) use of anticoagulants Z79.01 Plan If [...] (valve) insufficiency I36.1 Paroxysmal atrial fibrillation I48.0 detention (current) use of anticoagulants Z79.01 Anxiety F41.9 Coding Level of Care Code Off v is,est,level 3 Diagnoses Abnormal stress test R94.39 Essential hypertension I10 Hyperlipidemia, unspecified hyperlipidemia type E78.5 Nonrheumatic mitral valve regurgitation I34.0 Nonrheumatic tricuspi d (valve) insufficiency I36.1 Paroxysmal atrial fibrillation I48.0 detention (current) use of anticoagulants Z79.01 Anxiety F41.9 02/10/18 1506 <Electronically signed by Dusty MORALES& #62; Date Dusty MORALES Cosigner Signature: Date (if applicable) CC: Nina Jiménez DO 10-Feb-2018 Chest PA and Lateral Result: Comments: See Note; NOTES: [facility] Imaging Services [address] [place] [address] Chest PA and Lateral MR#: [id number] Acct: [id number] Name: GABOJINNINA B Rep #: [id number] : 1955 F 62 From: Leslye Sue MD PCP: Nina Jiménez DO Status: REG CLI Study: Chest PA and Lateral Date of Exam: 02/10/18 Exam# [id number] Ordering Dr: Haile Mckee MD STUDY: X-RA [...] CC: Nina Jiménez DO; Haile Mckee MD Maintenance Service Technician: Signed 04-Feb-2018 Stress Report Result: Comments: See Note; NOTES: [facility] Cardiovascular Services [address] [place] [address] MR#: [id number] Acct: [id number] Name: GABONINA B Rep #: [id number] : 62 From: Haile Mckee MD Primary [...] and occasional PVCs during recovery. The functional [facility] was considered average. There was no [...] %. Thi s note was generated with Skeebleation software. It may contain incorrect words, spelling, and punctuation that were not noted in checking the note before signing. 02/04/18 1783 <Randy person signed by Haile Mckee MD> Date Haile Mckee MD CC: Nina Jiménez DO; Haile Mckee MD Date Dictated: 02/04/18 1354 Date Transcribed: 02/04/181353 Maintenance Service Technician: PM Signed 09-Jan-2018 Cardiology Visit Report Result: Comments: See Note; NOTES: [facility] [address] [place] [address] OFFICE VISIT Date of Service: 01/09/18 MR#: [id number] Acct: [id number] Name: NINA AYON Rep #: [id number] : 1955 Provider: Haile Mckee MD Age/Sex: 62/F [place] [facility] Status: Signed HPI HPI Details: NINA [...] (valve) insufficiency (Chronic) Paroxysmal atrial fibrillation (Acute) detention (current) use of a nticoagulants (Chronic) GERD [...] underwent a transthoracic echocardiogram on 11/07/2016 at [facility]. The results are as noted below. [...] management and follow- up. Orders Orders: 7. 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 Coding Level of Care Code Off vis,est,level 4 Diagnoses Chest pain, unspecified type R07.9 Chest pain type: unspecified Paroxysmal atrial fibrillation I48.0 Nonrheumatic mitral valve insufficiency I34.0 Non-rheumatic tricuspid valve insufficiency I36.1 Hyper lipidemia, unspecified hyperlipidemia type E78.5 Hyperlipidemia type: unspecified Essential hypertension I10 Hypertension type: essential hypertension detention current use of anticoagulant Z79.01 1103 <Electronically signed by Haile Mckee MD> Date Haile Mckee MD Cosigner Signature: Date (if applicable) CC: Nina Jiménez DO 09-Jan-2018 12 Lead EKG performed by [facility] Result: Comments: See Note; NOTES: [facility] [address] [place] [address] 12 Lead EKG performed by [facility] 01/09/185 MR#: [id number] Acct: [id number] Name: NINA AYON Rep #: [id number] : 1955 62 From: Haile Mckee MD Attending Dr: Haile Mckee MD Status: DEP [facility] Ordering Dr: Haile Mckee MD Date: 01/09/18 Location[place] [facility] Sex: F C Admitted : BMS/12 Lead EKG performed by [facility] ECG Report Interpretation Sinus Rhythm - occasional ectopic ventricular beat Electronically signed on 01/09/2018 at 12:2 4 by Haile Mckee 01/09/181226 Date Haile Mckee MD CC: Nina Jiménez DO Date Dictated: 01/09/181024 Date Transcribed: 01/09/181024 Maintenance Service Technician: PM Signed 09-Aug-2017 Abdomen/Pelvis WITH Contrast Result: Comments: See Note; NOTES: [facility] Imaging Services [address] [place] [address] Abdomen/Pelvis WITH Contrast MR#: [id number] Acct: [id number] Name: NINA AYON Rep # : [id number] : 1955 F 62 From: Ganga Argueta PCP: Nina Jiménez DO Status: REG CLI Study: Abdomen/Pelvis WITH Contrast Date of Exam: 08/09/17 Exam# [id number] Ordering Dr: Nina Jiménez DO STUDY: CT [...] of the lumbar spine. ORDE R #: [id number] CT/Abdomen/Pelvis WITH Contrast IMPRESSION: No acute findings in the abdomen or pelvis. Normal appendix. No hydronephrosis or urinary tract stones. No evidence of bowel obstruction. M ild sigmoid colon diverticulosis. Moderate size hiatal hernia. Electronically Signed: Ganga Argueta MD at 8:11 EST , Service support , CC: Nina Jiménez DO Maintenance Service Technician: Signed 07-Nov-2016 Echocardiogram Complete Result: Comments: See Note; NOTES: [facility] Cardiovascular Services [address] [place] [address] Echo Complete 11/07/16 1027 MR#: [id number] Acct: [id number] Name: NINA AYON Rep #: [id number] : 1955 61 From: Haile Mckee MD Attending Dr: Sanam Coronel NP Status: REG CLI Ordering Dr: Sanam Coronel E MANAGER STRATEGIC ALLIANCES-C Date: 11/07/16 Location: [facility] Sex: F C Admitted: [place]ing son For Study: Afib Procedure This was [...] Date Haile Mckee MD CC: Sanam Coronel MANAGER STRATEGIC ALLIANCES; Nina Jiménez DO Date Dictated: 11/07/16 1027 Date Transcribed: 11/07/161733 Maintenance Service Technician: Signed 02-Nov-2016 SCREENING MAMM (CAD), BILAT Result: Comments: See Note; NOTES: [facility] Imaging Services [address] [place] [address] Verdana 4d SCREENING MAMM (CAD), BILAT MR#: [id number] Acct: [id number] Name: DARÍO AYON Rep #: [id number] : 1955 F 61 From: Jaya Mac MD PCP: Nina Jiménez DO Status: REG I Study: SCREENING MAMM (CAD), BILAT Date of Exam: 11/02/16 Exam# [id number] Ordering Dr: Nina Kingsley DO MAMMOGRAPHY - [...] will be sent to the patient by [facility] facility within 30 days. Approximately 10% of breast cancers are not detected by mammography. A normal mammogram should not delay biopsy of a clinically suspicious abnormality. [id number] Electronicall y Signed: Jaya Mac MD at 8:27 EDT Tel [phone], Service support [phone], CC: Nina Jiménez DO Maintenance Service Technician: Signed 04-Jul-2016 Operative Report Result: Comments: See Note; NOTES: [facility] Medical Records Department [address] [place] [address] Operative Report MR#: [id number] Acct: [id number] Name: NINA AYON Rep #: [id number] : 1955 61 From: Juan Covington MD PCP: Nina Jiménez DO Status: [facility] DATE OF SERVICE: 07/03/2016 DATE [...] MD Primary Care Physician T: NTS JOB: [id number] 07/04/16 0615 <Electronically signed by Juan Covington MD> Date Juan Covington MD Cosigner Signature (If Indicated): Date CC: Juan Covington MD; Nina Jiménez DO; Haile Mckee MD Date Dictated: 07/03/16 1104 Date Transcribed: 07/03/161103 Maintenance Service Technician: Signed 03-Jul-2016 Operative Report Result: Comments: See Note; NOTES: [facility] Medical Records Department [address] [place] [address] Operative Report 07/03/16 1642 MR#: [id number] Acct: [id number] Name: DARÍO AYON Rep #: [id number] : 1955 61 From: Haile Mckee MD PCP: iNna Jiménez DO Status: [facility] Y Location: [facility] Problem List (1) Atrial fibrillation [...] complica tions This note was generated with Ozmosis dictation software. It may contain incorrect words, spelling, and punctuation that were not noted in checking the note before signing. 07/03/16 1644 &#6 0;Electronically signed by Haile Mckee MD> Date Haile Mckee MD CC: Nina Jiménez DO; Haile Mckee MD Signed 03-Jul-2016 Echo Transesophageal (KATHY) Result: Comments: See Note; NOTES: [facility] Cardiovascular Services [address] [place] [address] Echo Transesophageal (KATHY) 07/03/16 0947 MR#: [id number] Acct: [id number] Name: TESSA AYALANINA B Rep #: [id number] : 1955 61 From: Haile Mckee MD Attending Dr: Haile Mckee MD Status: [facility] Ordering Dr: Haile Mckee MD Date: 07/03/16 Location: [facility] Sex: F C Admitted: Reason For Study: AFIB Medication KATHY probe passed with minimal difficulty. Cetacaine Topical [place] given X3 orally. Versed 2 mg given [...] Dictated: 07/03/16 0947 Date Transcribed: 07/03/16 1436 Maintenance Service Technician: Signed 28-Jun-2016 Chest PA and Lateral Result: Comments: See Note; NOTES: [facility] Imaging Services [address] [place] [address] Verdana 4d Chest PA and Lateral MR#: [id number] Acct: [id number] Name: NINA AYON #: [id number] : 1955 F 61 From: Johnathon Meza PCP: Nina Jiménez DO Status[place] [facility] [place]: Chest PA and Lateral Date of Exam: 06/28/16 Exam# [id number] Ordering Dr: Haile Mckee MD STUDY: X-RAY [...] at 6:38 EST Tel , Service support [phone], CC: Nina Jiménez DO; Haile Mckee MD Maintenance Service Technician: Signed 19-Jun-2016 Nuclear Stress Test - Chemical Result: Comments: See Note; NOTES: [facility] Imaging Services [address] [place] [address] Candie 4d Nuclear Stress Test - Chemical MR#: [id number] Acct: [id number] Name: Ashlee AYON Rep #: [id number] : 1955 61 From: Haile Mckee MD [...] 60%. Haile Mckee MD T: NTS JOB: [id number] 06/19/161936 <Electronically signed by Haile Mckee MD> Date Haile Mckee MD CC: Nina Diop on DO; Haile Mckee MD Date Dictated: 06/19/161406 Date Transcribed: 06/19/161406 Maintenance Service Technician: Signed 08-Jun-2016 Echocardiogram Complete Result: Comments: See Note; NOTES: [facility] Cardiovascular Services [address] [facility] [place] [address] Echo Complete 06/08/16 1319 MR#: [id number] Acct: [id number] Name: NINA AYON Rep #: [id number] : 1955 61 From: Haile Mckee MD Attending Dr: Nina Jiménez DO Status: REG CLI Ordering Dr: Nina Jiménez DO Date: 06/08/16 Location: [facility] Sex: F C Admitted: Reas [...] Date Dictated: 06/08/16 1319 Date Transcribed: 06/08/161731 Maintenance Service Technician: Signed 06-Jul-2014 Hepatobilliary Imaging Result: Comments: See Note; NOTES: [facility] Imaging Services [address] [place] [address] Nuclear Medicine Report MR#: [id number] Acct: [id number] Name: NINA AYON Rep #: [id number] : 1955 F 59 From: Steven Cunha DO PCP: Nina Jiménez DO Status: REG CLI Study: Hepatobilliary Imaging Date of Exam: 07/06/14 Exam# [id number] Ordering Dr: Kacey Patton CL INICAL: 59-year-old [...] Cunha DO at 8:3 5 EST Tel [phone], Service support [phone], CC: Kacey Jiménez DO Maintenance Service Technician: Signed 02-Jul-2014 Small Bowel Series Only Result: Comments: See Note; NOTES: [facility] Imaging Services [address] [place] [address] Radiology Report MR#: [id number] Acct: [id number] Name: NINA AYON Rep #: [id number] : 1955 F 59 From: Jaya Mac MD PCP: Nina Jiménez DO Status: REG CLI Study: Small Bowel Series Only Date of Exam: 07/02/14 Exam# [id number] Ordering Dr: Kacey Patton CEDURE: SMALL BOWEL [...] Mac MD 11/27/13 at 11:02 EST Tel [phone], Service support [phone], RAD/Small Bowel Series Only IMPRESSION: Normal small bowel series. Electronically Signed: Jaya Mac MD at 11:02 EST Tel [phone], Service support [phone], CC: Kacey Patton; Nina Jiménez DO Maintenance Service Technician: Signed 23-Jun-2014 Gallbladder Result: Comments: See Note; NOTES: [facility] Imaging Services [address] [place] [address] Ultrasound Report MR#: [id number] Acct: [id number] Name: NINA AYON Rep #: [id number] : 1955 F 59 From: Jaya Mac MD PCP: Nina Jiménez DO Status: REG CLI Study: Gallbladder Date of Exam: 06/23/14 Exam# [id number] Ordering Dr: Kacey Patton STUDY: ABDOMIN AL [...] Jaya Mac MD at 11:48 EST Tel [phone], Service support [phone], CC: Kacey Patton; Nina Jiménez DO Maintenance Service Technician: Signed Immunization Name Dates Details Influenza (3 years and up) on: 29-Jul-2008 Pneumococcal (2 years and up) on: 14-Nov-2015 Comments: Site: Deltoid (Left) Lot #: [id number] Pneumococcal (2 years and up) on: 29-Jul-2008 Social History Name Dates Details Tobacco use: Never smoker. Status: Active Smoking Status Name Dates Details Never smoker Vital Signs Date Test Result Details 79-Dnf-205797:41 Temperature 97.9 f Comments: Method: Temporal Pulse [...] kg/m2 Body Surface Area Calculated 2.19 m2 5-Anz-513552:32 Temperature 97.6 f Comments: Method: Temporal Pulse [...] kg/m2 Body Surface Area Calculated 2.22 m2 52-Aqh-934878:57 Pulse 68 /min Comments: Pattern: Regular Respiration [...] Date Description Value Details :39 Lipase Comments: [facility] [address] [place], [place], [address] LIPASE 127 U/L (Normal) Range: 73-393 8-Ttz-320825:39 Liver Profile Comments: [facility] [address] [place], [place], [address] D BILI 0.07 mg/dL (Normal) Range: 0.00-0.30 T BILI 0.30 mg/dL (Normal) Range: 0.20-1.00 ALT 37 U/L (Normal) Range: 13-56 ALK P 88 U/L (Normal) Range: 45-117 AST 30 U/L (Normal) Range: 15-37 GLOB 3.6 g/dL (Normal) Range: 2.2-4.2 ALB 3.9 g/dL (Normal) Range: 3.2-5.0 T PROT 7.5 g/dL (Normal) Range: 6.4-8.2 :10 Basic Metabolic Profile (BMP) Comments: [facility] [address] [facility] [place], [place], [address] GAP 9 (Normal) Range: 5-15 CO2 26.0 [...] A.D.A. criteria.Please note revised GLUCOSE reference range xlacwrstn77/02/2018. 2-Lly-040407:10 CBC W/Diff, Automated Comments: [facility] [address] [place], [place], [address] Absolute Lymph 1.31 {X10_3/ul} (Normal) Range: 0.83-4.51 [...] Range: 4.4-11.0 :10 Prothrombin Time w/INR Comments: [facility] [address] [place], [place], [address] INR 1.5 (Normal) PROTIME 17.9 s (Abnormal) Range: 11.7-14.9 4-Qcn-404550:10 Troponin-I Comments: [facility] [address] [facility] [place], [address] TROPONIN-I < 0.015 ng/mL (Normal) Comments: TROPONIN-I EXPECTED VALUES <0.045 Negative 0.045 - 0.590 Consistent with Cardiac Damage > OR = 0.600 Critical Value Not every elevated troponin is indicative of FL. T hesevalues should be used with clinical judgement in examiningthe patient's clinical picture for diagnosis. To establisha diagnosis of FL versus myocardial injury, there must be ademonstrated rise and/ or fall in the troponin values, inaddition to ischemic symptoms, EKG changes, new regionalwall motion abnormality, and/or angiographical evidence. PLEASE NOTE: REFERENCE RANGES EDITED 12/30/1710-Feb-201897-Qww-214188:44 Basic Metabolic Profile (BMP) Comments: [facility] [address] [place], [place], [address] GAP 8 (Normal) Range: 5-15 CO2 28.0 [...] A.D.A. criteria.Please note revised GLUCOSE reference range auidrrnau10/02/2018. 60-Ist-286190:44 CBC-Complete Blood Cnt No Diff Comments: [facility] [address] [place], [place], [address](745) MPV 11.4 fL (Normal) Range: 6.2-12.0 PLT [...] 4.2-5.4 WBC 6.2 K/mm3 (Normal) Range: 4.4-11.0 67-Yvi-410066:44 Partial Thromboplast Time Comments: [facility] [address] [place], [place], [address] PTT 37.7 s (Abnormal) Range: 24.1-36.2 :44 Prothrombin Time w/INR Comments: [facility] [address] [place], [place], [address] INR 1.8 (Normal) PROTIME 21.0 s (Abnormal) Range: 11.7-14.9 4-Ajo-620273:37 Urinalysis, Office (31621) UA - LEUKOCYTE ESTERASE Moderate (Normal) UA - NITRITE Negative (Normal) URINE UROBILINGN RUBEN TIMED 2 mg/dL (Normal) UA - PROTEIN Negative mg/dL (Normal) UA - PH 7.0 (Normal) UA - BLOOD Hemolyzed Trace (Normal) UA - SPECIFIC GRAVITY 1.010 (Normal) UA - KETONES Negative mg/dL (Normal) UA - BILIRUBIN Negative (Normal) UA - GLUCOSE Negative (Normal) 1-Sbv-973178:33 Blood Glucose , Office (69723) Blood Glucose , Office 131 (Normal) 3-Cme-881647:33 HgA1C , Office (32529) HgA1C , Office 5.9 % (Normal) Range: 4.6 - 7.1 :22 H-Pylori IGA,IGG,IGM (10015) Comments: PATIENT NOT FASTINGPERFORMED BY: [facility] CenterAzxejf8906 [facility] [id number] H pylori, IgM Abs <9.0 {units} (Normal) Range: 0.0-8.9 Comments: Negative <9.0 Equivocal 9.0 - 11.0 Positive >11.0 .This test was developed and its performance characteristicsdetermined by [facility]. It has not been cleared or approvedby the Food and Drug Administration. H. pylori, IgA Abs <9.0 {units} (Normal) Range: 0.0-8.9 Comments: Negative <9.0 Equivocal 9.0 - 11.0 Positive >11.0 H. pylori, IgG Abs <0.9 U/mL (Normal) Range: 0.0-0.8 Comments: Negative <0.9 Indeterminate 0.9 - 1.0 Positive >1.0 Effective August the reference interval will be changing to: Negative <0.8 Equivocal 0.8 Positive >0.8 2-Ndl-364612:19 Microscopic Examination Comments: PATIENT WAS FASTINGPERFORMED BY: ADI [facility] HospitalXiihfh5187 [facility] [id number] Bacteria Few (Normal) Mucus Threads Present (Normal) Epithelial Cells (non renal) >10 {/hpf} (Abnormal) Range: 0 - 10 RBC 3-10 {/hpf} (Abnormal) Range: 0 - 2 WBC >30 {/hpf} (Abnormal) Range: 0 - 5 5-Jrr-722122:21 Basic Metabolic Profile (BMP) Comments: Order Date: 05/08/17Order Info: 0667-1 - *BMPComments: Reason:[facility] [address] [place], [place], [address] GAP 5 (Normal) Range: 5-15 CO2 31.0 [...] 7-18 GLU 93 mg/dL (Normal) Range: 70-110 22-Gqq-471503:34 HGB A1C (44176) Comments: PATIENT WAS FASTINGPERFORMED BY: [facility]6370 [facility] [id number] Hemoglobin A1c 6.5 % (Abnormal) Range: 4.8-5.6 Comments: . Pre-diabetes: 5.7 - 6.4 Diabetes: >6.4 Glycemic control for adults with diabetes: <7.0 :34 MICROALBUMIN: CREATININE RATIO Comments: PATIENT WAS FASTINGPERFORMED BY: [facility] HospitalDuvaai4464 [facility] [id number] (77696) AND (47596) Microalb/Creat Ratio <13.7 {mg/g_creat} (Normal) Range: 0.0-30.0 Microalbumin, Urine <3.0 ug/mL (Normal) Creatinine, Urine 21.9 mg/dL (Normal) :34 TSH (77060) Comments: PATIENT WAS FASTINGPERFORMED BY: [facility] HospitalQtpzaq9927 [facility] [id number] TSH 2.420 {uIU/mL} (Normal) Range: 0.450-4.500 :34 Lipid Panel (80972) Comments: PATIENT WAS FASTINGPERFORMED BY: [facility] HospitalHckesa7125 [facility] [id number] LDL/HDL Ratio 1.9 {ratio_units} (Normal) Range: 0.0-3.2 Comments: LDL/HDL Ratio Men Women 1/2 Avg.Risk 1.0 1.5 Av g.Risk 3.6 3.2 2X Avg.Risk 6.2 5.0 3X Avg.Risk 8.0 6.1 LDL Cholesterol Calc 132 mg/dL (Abnormal) Range: 0-99 VLDL Cholesterol Aneesh 15 mg/dL (Normal) Range: 5-40 HDL Cholesterol 71 mg/dL (Normal) Triglycerides 73 mg/dL (Normal) Range: 0-149 Cholesterol, Total 218 mg/dL (Abnormal) Range: 100-199 75-Zcl-499174:34 Metabolic Panel, Comprehensive Comments: PATIENT WAS FASTINGPERFORMED BY: [facility]LAstra [facility] CenterRsdtmu4098 [facility] [id number] (63848) ALT (SGPT) 27 [iU]/L (Normal) Range: 0-32 [...] Glucose, Serum 96 mg/dL (Normal) Range: 65-99 35-Pmi-564381:34 CBC WITH MANUAL DIFF (51283) Comments: PATIENT WAS FASTINGPERFORMED BY: [facility] CenterFbkula3264 [facility] [id number] Immature Grans (Abs) 0.0 {x10E3/uL} (Normal) Range: [...] 7.4 {x10E3/uL} (Normal) Range: 3.4-10.8 :19 TSH (20404) Comments: PATIENT WAS FASTINGPERFORMED BY: [facility] [id number] TSH 2.050 {uIU/mL} (Normal) Range: 0.450-4.500 :19 URINALYSIS, W/ MICRO (32664) Comments: PATIENT WAS FASTINGPERFORMED BY: [facility] [id number] Microscopic Examination See below: (Normal) Comments: Microscopic was indicated and was performed. Nitrite, Urine Negative (Normal) Urobilinogen,Semi-Qn 0.2 mg/dL (Normal) Range: 0.2-1.0 Bilirubin Negative (Normal) Occult Blood 1+ (Abnormal) Ketones Negative (Normal) Glucose Negative (Normal) Protein Negative (Normal) WBC Esterase 3+ (Abnormal) Appearance Cloudy (Abnormal) Urine-Color Yellow (Normal) pH 7.0 (Normal) Range: 5.0-7.5 Specific [place] 1.015 (Normal) Range: 1.005-1.030 :19 MICROALBUMIN: CREATININE RATIO Comments: PATIENT WAS FASTINGPERFORMED BY: [facility] [id number] (91602) AND (40104) Microalb/Creat Ratio 9.1 {mg/g_creat} (Normal) Range: 0.0-30.0 Microalbumin, Urine 7.4 ug/mL (Normal) Creatinine, Urine 81.3 mg/dL (Normal) :19 METABOLIC PANEL, COMPREHENSIVE Comments: PATIENT WAS FASTINGPERFORMED BY: AutoESL Gzktre7702 [facility] [id number] (14697) ALT (SGPT) 43 [iU]/L (Abnormal) Range: 0-32 [...] Glucose, Serum 104 mg/dL (Abnormal) Range: 65-99 3-Zln-314345:19 LIPID PANEL (81680) Comments: PATIENT WAS FASTINGPERFORMED BY: Front Row6370 [facility] [id number] LDL/HDL Ratio 2.7 {ratio_units} (Normal) Range: 0.0-3.2 Comments: LDL/HDL Ratio Men Women 1/2 Avg.Risk 1.0 1.5 Av g.Risk 3.6 3.2 2X Avg.Risk 6.2 5.0 3X Avg.Risk 8.0 6.1 LDL Cholesterol Calc 145 mg/dL (Abnormal) Range: 0-99 VLDL Cholesterol Aneesh 18 mg/dL (Normal) Range: 5-40 HDL Cholesterol 53 mg/dL (Normal) Triglycerides 89 mg/dL (Normal) Range: 0-149 Cholesterol, Total 216 mg/dL (Abnormal) Range: 100-199 5-Stc-920450:19 CBC W/AUTO DIFF WBC (08446) Comments: PATIENT WAS FASTINGPERFORMED BY: LabCoAstra Health CenterBhntla5930 [facility] [id number] Immature Grans (Abs) 0.0 {x10E3/uL} (Normal) Range: [...] {x10E3/uL} (Normal) Range: 3.4-10.8 :19 HGB A1C (80393) Comments: PATIENT WAS FASTINGPERFORMED BY: LabCoAstra Health CenterSqprue4933 [facility] [id number] Hemoglobin A1c 6.2 % (Abnormal) Range: 4.8-5.6 Comments: . Pre-diabetes: 5.7 - 6.4 Diabetes: >6.4 Glycemic control for adults with diabetes: <7.0 :19 HGB A1C (36156) Comments: PATIENT NOT FASTINGPERFORMED BY: LabCoAstra Health CenterEmpvxa3868 [facility] [id number] Hemoglobin A1c 6.2 % (Abnormal) Range: 4.8-5.6 Comments: . Pre-diabetes: 5.7 - 6.4 Diabetes: >6.4 Glycemic control for adults with diabetes: <7.0 :33 Basic Metabolic Profile (BMP) Comments: Order Date: 06/21/16Order Info: [id number] - *BMPOrder Date: 06/21/16Order Info: [id number] - *BMPComments: Reason:[facility] Pefivfakmk[address] [place], [address] GAP 8 (Normal) Range: 5-15 CO2 27.0 [...] Microscopic Examination Comments: PATIENT NOT FASTINGPERFORMED BY: [employer] [facility] [id number] Bacteria None seen (Normal) Mucus Threads Present (Normal) Epithelial Cells (non renal) 0-10 {/hpf} (Normal) Range: 0 - 10 RBC 0-2 {/hpf} (Normal) Range: 0 - 2 WBC 0-5 {/hpf} (Normal) Range: 0 - 5 :37 URINALYSIS, W/ MICRO (94742) Comments: PATIENT NOT FASTINGPERFORMED BY: [employer] [facility] [id number] Microscopic Examination See below: (Normal) Comments: Microscopic was indicated and was performed. Nitrite, Urine Negative (Normal) Urobilinogen,Semi-Qn 0.2 mg/dL (Normal) Range: 0.2-1.0 Bilirubin Negative (Normal) Occult Blood Negative (Normal) Ketones Negative (Normal) Glucose Negative (Normal) Protein Negative (Normal) WBC Esterase 2+ (Abnormal) Appearance Clear (Normal) Urine-Color Yellow (Normal) pH 8.0 (Abnormal) Range: 5.0-7.5 Specific [place] 1.011 (Normal) Range: 1.005-1.030 :37 TSH (44935) Comments: PATIENT NOT FASTINGPERFORMED BY: AutoESL Xsqnns5372 [facility] [id number] TSH 2.050 {uIU/mL} (Normal) Range: 0.450-4.500 :37 METABOLIC PANEL, COMPREHENSIVE Comments: PATIENT NOT FASTINGPERFORMED BY: [employer] Qthgkb0256 [facility] [id number] (55119) ALT (SGPT) 31 [iU]/L (Normal) Range: 0-32 [...] Glucose, Serum 96 mg/dL (Normal) Range: 65-99 56-Zsc-809408:37 CBC W/AUTO DIFF WBC (06413) Comments: PATIENT NOT FASTINGPERFORMED BY: LabCoAstra Health CenterWmkqjz7764 [facility] [id number] Immature Grans (Abs) 0.0 {x10E3/uL} (Normal) Range: [...] (Normal) Range: 3.4-10.8 :08 HgA1C , Office (35322) HgA1C , Office 5.9 % (Normal) Range: 4.6 - 7.1 :49 HGB A1C (22856) Comments: PATIENT WAS FASTINGPERFORMED BY: AutoESLAstra Health CenterMqujxt7346 [facility] [id number] Hemoglobin A1c 6.1 % (Abnormal) Range: 4.8-5.6 Comments: . Pre-diabetes: 5.7 - 6.4 Diabetes: >6.4 Glycemic control for adults with diabetes: <7.0 :49 TSH (63698) Comments: PATIENT WAS FASTINGPERFORMED BY: AutoESLAstra Health CenterHcxspr9986 [facility] [id number] TSH 2.280 {uIU/mL} (Normal) Range: 0.450-4.500 :49 MICROALBUMIN: CREATININE RATIO Comments: PATIENT WAS FASTINGPERFORMED BY: AutoESLAstra Health CenterTrswnv8025 [facility] [id number] (46577) AND (69849) Microalb/Creat Ratio <3.5 {mg/g_creat} (Normal) Range: 0.0-30.0 Microalbumin, Urine <3.0 ug/mL (Normal) Creatinine, Urine 85.4 mg/dL (Normal) 4-Emy-746610:49 METABOLIC PANEL, COMPREHENSIVE Comments: PATIENT WAS FASTINGPERFORMED BY: LabCoAstra Health CenterHskvvk8327 [facility] [id number] (70099) ALT (SGPT) 19 [iU]/L (Normal) Range: 0-32 [...] Glucose, Serum 101 mg/dL (Abnormal) Range: 65-99 3-Csw-034740:49 LIPID PANEL (27416) Comments: PATIENT WAS FASTINGPERFORMED BY: AutoESLAstra Health CenterFhsons1061 [facility] [id number] LDL/HDL Ratio 2.3 {ratio_units} (Normal) Range: 0.0-3.2 Comments: LDL/HDL Ratio Men Women 1/2 Avg.Risk 1.0 1.5 Av g.Risk 3.6 3.2 2X Avg.Risk 6.2 5.0 3X Avg.Risk 8.0 6.1 LDL Cholesterol Calc 132 mg/dL (Abnormal) Range: 0-99 VLDL Cholesterol Aneesh 10 mg/dL (Normal) Range: 5-40 HDL Cholesterol 58 mg/dL (Normal) Triglycerides 48 mg/dL (Normal) Range: 0-149 Cholesterol, Total 200 mg/dL (Abnormal) Range: 100-199 0-Zoc-696127:49 CBC W/AUTO DIFF WBC (50539) Comments: PATIENT WAS FASTINGPERFORMED BY: LabTeikhos TechAstra Health CenterAysazv2102 [facility] [id number]; will review at 08/07 appt Immature Grans [...] Microscopic Examination Comments: PATIENT WAS FASTINGPERFORMED BY: AutoESLAstra Health CenterDmtptg1608 [facility] [id number] Bacteria Few (Normal) Mucus Threads Present (Normal) Epithelial Cells (non renal) 0-10 {/hpf} (Normal) Range: 0 - 10 RBC 0-2 {/hpf} (Normal) Range: 0 - 2 WBC 0-5 {/hpf} (Normal) Range: 0 - 5 :48 Blood Glucose , Office (45057) Blood Glucose , Office 75 (Normal) :48 HgA1C , Office (85486) HgA1C , Office 6.0 % (Normal) Range: 4.6 - 7.1 :18 TSH (71796) Comments: PATIENT WAS FASTINGPERFORMED BY: AutoESLAstra Health CenterOjeflu2784 [facility] [id number] TSH 1.930 {uIU/mL} (Normal) Range: 0.450-4.500 :18 URINALYSIS, W/ MICRO (12377) Comments: PATIENT WAS FASTINGPERFORMED BY: AutoESLAstra Health CenterQxguri7668 [facility] [id number] Microscopic Examination See below: (Normal) Comments: Microscopic was indicated and was performed. Nitrite, Urine Negative (Normal) Urobilinogen,Semi-Qn 0.2 mg/dL (Normal) Range: 0.2-1.0 Bilirubin Negative (Normal) Occult Blood Negative (Normal) Ketones Negative (Normal) Glucose Negative (Normal) Protein Negative (Normal) WBC Esterase 1+ (Abnormal) Appearance Clear (Normal) Urine-Color Yellow (Normal) pH 7.5 (Normal) Range: 5.0-7.5 Specific [place] 1.023 (Normal) Range: 1.005-1.030 :18 MICROALBUMIN: CREATININE RATIO Comments: PATIENT WAS FASTINGPERFORMED BY: AutoESLAstra Health CenterYjxpki7953 [facility] [id number] (40953) AND (21230) Microalb/Creat Ratio 4.2 {mg/g_creat} (Normal) Range: 0.0-30.0 Microalbumin, Urine 6.3 ug/mL (Normal) Creatinine, Urine 149.4 mg/dL (Normal) :18 METABOLIC PANEL, COMPREHENSIVE Comments: PATIENT WAS FASTINGPERFORMED BY: AutoESLUNM Children's HospitalMftdax4312 [facility] [id number] (51342) ALT (SGPT) 30 [iU]/L (Normal) Range: 0-32 [...] Range: 65-99 :18 CBC W/AUTO DIFF WBC (60942) Comments: PATIENT WAS FASTINGPERFORMED BY: LabCoUNM Children's HospitalMnhghn9391 [facility] [id number] Immature Grans (Abs) 0.0 {x10E3/uL} (Normal) Range: [...] 6.1 {x10E3/uL} (Normal) Range: 3.4-10.8 :02 TSH (82394) Comments: PATIENT WAS FASTINGPERFORMED BY: LabCoAstra Health CenterQfslbs0110 [facility] [id number] TSH 2.070 {uIU/mL} (Normal) Range: 0.450-4.500 :02 CBC W/AUTO DIFF WBC Comments: PATIENT WAS FASTINGPERFORMED BY: [facility]6370 [facility] [id number] Information: [id number] (77723) Immature Grans (Abs) 0.0 {x10E3/uL} (Normal) Range: [...] 3.77-5.28 WBC 5.1 {x10E3/uL} (Normal) Range: 3.4-10.8 61-Ctm-147649:02 MICROALBUMIN: CREATININE RATIO Comments: PATIENT WAS FASTINGPERFORMED BY: [facility]6370 [facility] [id number] (22079) AND (42240) Microalb/Creat Ratio 4.5 {mg/g_creat} (Normal) Range: 0.0-30.0 Microalbumin, Urine 5.7 ug/mL (Normal) Range: 0.0-17.0 Creatinine, Urine 127.2 mg/dL (Normal) Range: 15.0-278.0 :02 METABOLIC PANEL, COMPREHENSIVE Comments: PATIENT WAS FASTINGPERFORMED BY: [employer]70 [facility]GidSent[facility] [id number] (91909) ALT (SGPT) 20 [iU]/L (Normal) Range: 0-32 [...] mg/dL (Normal) Range: 65-99 :02 LIPID PANEL (88092) Comments: PATIENT WAS FASTINGPERFORMED BY: [employer]70 [facility]GidSentara [facility] [id number] LDL/HDL Ratio 2.1 {ratio_units} (Normal) Range: 0.0-3.2 [...] Cholesterol, Total 203 mg/dL (Abnormal) Range: 100-199 32-Iux-231051:02 HGB A1C (86958) Comments: PATIENT WAS FASTINGPERFORMED BY: [facility]6370 [facility] [id number] Hemoglobin A1c 6.0 % (Abnormal) Range: 4.8-5.6 Comments: . Pre-diabetes: 5.7 - 6.4 Diabetes: >6.4 Glycemic control for adults with diabetes: <7.0 36-Jhw-798521:15 CULTURE, SPUTUM (15721) Comments: PERFORMED BY: LabCoAstra Health CenterUracbc64[address] [place] [address] [id number] Information: SRC: SPUTUM Result 1 RRF (Normal) Comments: Routine respiratory jamia Lower Respiratory Culture Final report (Normal) 30-Vkf-054699:45 Rapid Flu (64059 x 2) Influenza A Ag negative (Normal) 08-Upz-943999:50 HgA1C , Office (38399) HgA1C , Office 6.4 % (Normal) Range: 4.6 - 7.1 26-Rxl-579803:50 Blood Glucose , Office (78954) Blood Glucose , Office 102 (Normal) Comments: non-fasting 0-Zzo-964682:00 Urinalysis, Office (91207) UA - LEUKOCYTE ESTERASE Negative (Normal) UA [...] Microscopic Examination Comments: PATIENT WAS FASTINGPERFORMED BY: LabKarmanos Cancer Center6370 [facility] [id number] Bacteria Moderate (Abnormal) Mucus Threads Present (Normal) Epithelial Cells (non renal) >10 {/hpf} (Abnormal) Range: 0 - 10 RBC 0-2 {/hpf} (Normal) Range: 0 - 2 WBC >30 {/hpf} (Abnormal) Range: 0 - 5 :19 HgA1C , Office (14812) HgA1C , Office 6.1 % (Normal) Range: 4.6 - 7.1 :19 Blood Glucose , Office (61344) Blood Glucose , Office 98 (Normal) :19 HgA1C , Office (28695) HgA1C , Office 5.9 % (Normal) Range: 4.6 - 7.1 :19 Blood Glucose , Office (57811) Blood Glucose , Office 97 (Normal) 85-Ajk-782971:55 METABOLIC PANEL, COMPREHENSIVE Comments: PATIENT NOT FASTINGPERFORMED BY: LabCoRonald [place] 5545170 [facility] [id number] (84947) ALT (SGPT) 17 [iU]/L (Normal) Range: 0-32 [...] Glucose, Serum 85 mg/dL (Normal) Range: 65-99 24-Dka-412372:55 CBC WITH MANUAL DIFF Comments: PATIENT NOT FASTINGPERFORMED BY: ADI [facility] Kkjlsd6466 [facility] [id number] Information: [id number]; will review at 3-30 appt (23932) Immature Grans (Abs) 0.0 {x10E3/uL} (Normal) Range: [...] (Normal) Range: 3.4-10.8 :41 URINALYSIS, W/ MICRO (58612) Comments: PATIENT WAS FASTINGPERFORMED BY: [employer]ent[employer] MediaAstra Health CenterFmmhoj2926 [facility] [id number] Microscopic Examination See below: (Normal) Comments: Microscopic was indicated and was performed. Nitrite, Urine Negative (Normal) Urobilinogen,Semi-Qn 0.2 mg/dL (Normal) Range: 0.0-1.9 Bilirubin Negative (Normal) Occult Blood Negative (Normal) Ketones Negative (Normal) Glucose Negative (Normal) Protein Negative (Normal) WBC Esterase 3+ (Abnormal) Appearance Clear (Normal) Urine-Color Yellow (Normal) pH 6.5 (Normal) Range: 5.0-7.5 Specific [place] 1.020 (Normal) Range: 1.005-1.030 :41 MICROALBUMIN: CREATININE RATIO Comments: PATIENT WAS FASTINGPERFORMED BY: AutoESLAstra Health CenterLttjjm4784 [facility] [id number] (43663) AND (37813) Microalb/Creat Ratio 9.9 {mg/g_creat} (Normal) Range: 0.0-30.0 Microalbumin, Urine 10.2 ug/mL (Normal) Range: 0.0-17.0 Creatinine, Urine 103.0 mg/dL (Normal) Range: 15.0-278.0 :41 METABOLIC PANEL, COMPREHENSIVE Comments: PATIENT WAS FASTINGPERFORMED BY: minicabitKarmanos Cancer Center6370 [facility] [id number] (19802) ALT (SGPT) 33 [iU]/L (Abnormal) Range: 0-32 [...] mg/dL (Normal) Range: 65-99 :41 LIPID PANEL (40091) Comments: PATIENT WAS FASTINGPERFORMED BY: [facility] [id number] LDL/HDL Ratio 1.8 {ratio_units} (Normal) Range: 0.0-3.2 [...] MANUAL DIFF Comments: PATIENT WAS FASTINGPERFORMED BY: [facility] [place] [id number] Information: [id number] (69650) Immature Grans (Abs) 0.0 {x10E3/uL} (Normal) Range: [...] 7.1 {x10E3/uL} (Normal) Range: 3.4-10.8 :41 TSH (64459) Comments: PATIENT WAS FASTINGPERFORMED BY: AutoESL Wbxosq0575 [facility] [id number] TSH 2.910 {uIU/mL} (Normal) Range: 0.450-4.500 76-Fzx-887761:29 HEMOGLOBIN GLYCLATED (HGB Comments: PATIENT NOT FASTINGPERFORMED BY: minicabitCoUNM Children's HospitalVxxqpe5471 [facility] [id number] Information: [id number] A1C) (18680) Hemoglobin A1c 6.1 % (Abnormal) Range: 4.8-5.6 Comments: . Increased risk for diabetes: 5.7 - 6.4 Diabetes: >6.4 Glycemic control for adults with diabetes: <7.0 :48 HgA1C , Office (89291) HgA1C , Office 9.0 % (Abnormal) Range: 4.6 - 7.1 :48 Blood Glucose , Office (25220) Blood Glucose , Office 125 (Normal) :08 HgA1C , Office (05998) HgA1C , Office 5.8 % (Normal) Range: 4.6 - 7.1 :08 Blood Glucose , Office (41890) Blood Glucose , Office 88 (Normal) 42-Baw-668209:26 Rapid Flu (22079 x 2) Influenza A Ag negative A and B (Normal) :01 HgA1C , Office (16551) HgA1C , Office 6.0 % (Normal) Range: 4.6 - 7.1 :01 Blood Glucose , Office (17323) Blood Glucose , Office 79 (Normal) :01 HgA1C , Office (55009) HgA1C , Office 6.3 % (Normal) Range: 4.6 - 7.1 :00 Blood Glucose , Office (26185) Blood Glucose , Office 99 (Normal) :46 Microscopic Examination Comments: PATIENT WAS FASTINGPERFORMED BY: AutoESL Isispe4528 [facility] [id number] Bacteria None seen (Normal) Mucus Threads Present (Normal) Epithelial Cells (non renal) 0-10 {/hpf} (Normal) Range: 0 - 10 RBC 0-3 {/hpf} (Normal) Range: 0 - 3 WBC 6-10 {/hpf} (Abnormal) Range: 0 - 5 :46 TSH (39487) Comments: PATIENT WAS FASTINGPERFORMED BY: AutoESL Xgerma7935 [facility] [id number] TSH 2.400 {uIU/mL} (Normal) Range: 0.450-4.500 :46 URINALYSIS, W/ MICRO (37658) Comments: PATIENT WAS FASTINGPERFORMED BY: [facility]6370 [facility] [id number] Microscopic Examination See below: (Normal) Nitrite, Urine Negative (Normal) Urobilinogen,Semi-Qn 0.2 mg/dL (Normal) Range: 0.0-1.9 Bilirubin Negative (Normal) Occult Blood Negative (Normal) Ketones Negative (Normal) Glucose Negative (Normal) Protein Trace (Normal) WBC Esterase 2+ (Abnormal) Appearance Clear (Normal) Urine-Color Yellow (Normal) pH 8.0 (Abnormal) Range: 5.0-7.5 Specific [place] 1.026 (Normal) Range: 1.005-1.030 :46 MICROALBUMIN: CREATININE RATIO Comments: PATIENT WAS FASTINGPERFORMED BY: AutoESLAstra Health CenterIkwxjm1456 [facility] [id number] (99880) AND (34411) Microalb/Creat Ratio 2.4 {mg/g_creat} (Normal) Range: 0.0-30.0 Microalbumin, Urine 3.7 ug/mL (Normal) Range: 0.0-17.0 Creatinine, Urine 151.9 mg/dL (Normal) Range: 15.0-278.0 :46 METABOLIC PANEL, COMPREHENSIVE Comments: PATIENT WAS FASTINGPERFORMED BY: AutoESLAstra Health CenterCylvdf3879 [facility] [id number] (52182) ALT (SGPT) 29 [iU]/L (Normal) Range: 0-32 [...] mg/dL (Abnormal) Range: 65-99 :46 LIPID PANEL (56794) Comments: PATIENT WAS FASTINGPERFORMED BY: [employer]70 [facility] [id number] LDL/HDL Ratio 1.8 {ratio_units} (Normal) Range: 0.0-3.2 [...] MANUAL DIFF Comments: PATIENT WAS FASTINGPERFORMED BY: Greentech MediaAstra Health CenterBeisqn6831 [facility] [id number] Information: SRC: URINE (51170) Immature Grans (Abs) 0.0 {x10E3/uL} (Normal) Range: [...] {x10E3/uL} (Normal) Range: 4.0-10.5 :47 CCP ANTIBODY (23883) Comments: PATIENT WAS FASTINGPERFORMED BY: [employer] [facility] [id number] BY: AutoESL[address] [id number] CCP Antibodies IgG/IgA 22 {units} (Abnormal) Range: 0-19 Comments: Negative <20 Weak positive 20 - 39 Moderate positive 40 - 59 Strong positive >59 :47 SED RATE ERYTHROCYTE Comments: PATIENT WAS FASTINGPERFORMED BY: [employer] [facility] [id number] BY: [address] [id number] (40198) Sedimentation Rate-Westergren 3 mm/h (Normal) Range: 0-40 :47 C-REACTIVE PROTEIN (01759) Comments: PATIENT WAS FASTINGPERFORMED BY: [place] 4087470 [facility] [id number] BY: [address] [id number] C-Reactive Protein, Quant 6.5 mg/L (Abnormal) Range: 0.0-4.9 :47 RHEUMATOID FACTOR-QUANT Comments: PATIENT WAS FASTINGPERFORMED BY: AutoESL[address] [id number] BY: [address] [id number] (76627) RA Latex Turbid. 10.2 {IU/mL} (Normal) Range: 0.0-13.9 :47 YAMIL (ANTINUCLEAR ANTIBODY) Comments: PATIENT WAS FASTINGPERFORMED BY: minicabit[address] [id number] BY: [address] [id number] (19195) YAMIL Direct Negative (Normal) :35 HgA1C , Office (55257) HgA1C , Office 6.8 % (Normal) Range: 4.6 - 7.1 :35 Blood Glucose , Office (65903) Blood Glucose , Office 89 (Normal) Comments: PATIENT DID ON HER OWN MACHINE :56 HgA1C , Office (43590) HgA1C , Office 6.0 % (Normal) Range: 4.6 - 7.1 :56 Blood Glucose , Office (16088) Blood Glucose , Office 100 (Normal) 93-Ayu-712907:45 Microscopic Examination Comments: PATIENT WAS FASTINGPERFORMED BY: LabMichael Ville 4814970 [facility] [id number] Bacteria Many (Abnormal) Mucus Threads Present (Normal) Epithelial Cells (non renal) >10 {/hpf} (Abnormal) Range: 0 - 10 RBC 0-3 {/hpf} (Normal) Range: 0 - 3 WBC 11-30 {/hpf} (Abnormal) Range: 0 - 5 :02 HgA1C , Office (24717) HgA1C , Office 6.1 % (Normal) Range: 4.6 - 7.1 :02 Blood Glucose , Office (10687) Blood Glucose , Office 96 (Normal) :41 CBC With Differential/Platelet Comments: PATIENT WAS FASTINGPERFORMED BY: LabCoAstra Health CenterJysrkg3740 [facility] [id number] Immature Grans (Abs) 0.0 {x10E3/uL} (Normal) Range: [...] 3.80-5.10 WBC 5.5 {x10E3/uL} (Normal) Range: 4.0-10.5 42-Qnd-755906:41 Comp. Metabolic Panel (14) Comments: PATIENT WAS FASTINGPERFORMED BY: LabCoAstra Health CenterKxmppj7063 [facility] [id number] ALT (SGPT) 22 [iU]/L (Normal) Range: 0-40 [...] With LDL/HDL Comments: PATIENT WAS FASTINGPERFORMED BY: AutoESLAstra Health CenterXaquuh5331 [facility] [id number] Ratio LDL/HDL Ratio 1.7 {ratio_units} (Normal) Range: [...] Randm Ur Comments: PATIENT WAS FASTINGPERFORMED BY: minicabitKarmanos Cancer Center6370 [facility] [id number] Microalb/Creat Ratio 5.5 {mg/g_creat} (Normal) Range: 0.0-30.0 Microalbumin, Urine 9.9 ug/mL (Normal) Range: 0.0-17.0 Creatinine, Urine 181.2 mg/dL (Normal) Range: 15.0-278.0 37-Cdj-698129:41 Microscopic Examination Comments: PATIENT WAS FASTINGPERFORMED BY: minicabitKarmanos Cancer Center6370 [facility] [id number] Bacteria Few (Normal) Mucus Threads Present (Normal) Epithelial Cells (non >10 {/hpf} Range: 0 - 10 renal) (Abnormal) RBC 0-3 {/hpf} (Normal) Range: 0 - 3 WBC 0-5 {/hpf} (Normal) Range: 0 - 5 TSH 2.900 {uIU/mL} Comments: PATIENT WAS FASTINGPERFORMED BY: [facility]6370 [facility] [id number] 1:41 (Normal) Range: 0.450-4.500 59-Ywg-863833:41 Urinalysis, Complete Comments: PATIENT WAS FASTINGPERFORMED BY: [address]ox RoadDublin [place] [id number] Microscopic Examination See below: (Normal) Nitrite, Urine Negative (Normal) Urobilinogen,Semi-Qn 0.2 mg/dL (Normal) Range: 0.0-1.9 Bilirubin Negative (Normal) Occult Blood Negative (Normal) Ketones Negative (Normal) Glucose Negative (Normal) Protein Negative (Normal) WBC Esterase 1+ (Abnormal) Appearance Clear (Normal) Urine-Color Yellow (Normal) pH 6.5 (Normal) Range: 5.0-7.5 Specific [place] 1.024 (Normal) Range: 1.005-1.030 30-Ttl-073184:45 URINALYSIS, W/ MICRO (16580) Comments: PATIENT WAS FASTINGPERFORMED BY: [facility]6370 [facility] [id number] Microscopic Examination See below: (Normal) Nitrite, Urine Negative (Normal) Urobilinogen,Semi-Qn 0.2 mg/dL (Normal) Range: 0.0-1.9 Bilirubin Negative (Normal) Ketones Negative (Normal) Occult Blood Negative (Normal) Glucose Negative (Normal) Protein 1+ (Abnormal) WBC Esterase 1+ (Abnormal) Appearance Turbid (Abnormal) Urine-Color Yellow (Normal) pH 8.5 (Abnormal) Range: 5.0-7.5 Specific [place] 1.027 (Normal) Range: 1.005-1.030 :45 TSH (81346) Comments: PATIENT WAS FASTINGPERFORMED BY: [facility]6370 [facility] [id number] TSH 1.890 {uIU/mL} (Normal) Range: 0.450-4.500 43-Ssp-920206:45 MICROALBUMIN: CREATININE RATIO Comments: PATIENT WAS FASTINGPERFORMED BY: [place] 4087470 [facility] [id number] (37732) AND (34206) Microalb/Creat Ratio 9.5 {mg/g_creat} (Normal) Range: 0.0-30.0 Creatinine, Urine 186.1 mg/dL (Normal) Range: 15.0-278.0 Microalbumin, Urine 17.7 ug/mL (Abnormal) Range: 0.0-17.0 :45 METABOLIC PANEL, COMPREHENSIVE Comments: PATIENT WAS FASTINGPERFORMED BY: ADI [employer]70 [facility] [id number] (09174) ALT (SGPT) 21 [iU]/L (Normal) Range: 0-40 [...] Glucose, Serum 98 mg/dL (Normal) Range: 65-99 32-Kir-806693:45 LIPID PANEL (21518) Comments: PATIENT WAS FASTINGPERFORMED BY: [address] [facility] [id number] LDL/HDL Ratio 1.6 {ratio_units} (Normal) Range: 0.0-3.2 [...] 100-199 Comments: Please note reference interval change 69-Pky-584030:45 CBC WITH MANUAL DIFF Comments: PATIENT WAS FASTINGPERFORMED BY: [facility] Iyqulu9368 [facility] [id number] Information: [id number] (91360) Immature Grans (Abs) 0.0 {x10E3/uL} (Normal) Range: [...] (Normal) Range: 4.0-10.5 :09 HgA1C , Office (33896) HgA1C , Office 6.0 % (Normal) Range: 4.6 - 7.1 :09 Blood Glucose , Office (60800) Blood Glucose , Office 79 (Normal) :33 Blood Glucose , Office (16426) Blood Glucose , Office 98 (Normal) :33 HgA1C , Office (25600) HgA1C , Office 6.0 % (Normal) Range: 4.6 - 7.1 :39 CBC & PLATELETS (AUTO) Comments: PATIENT WAS FASTINGPERFORMED BY: [id number] [id number] ([id number]) Platelets 242 {x10E3/uL} (Normal) Range: 140-415 RDW 13.8 % (Normal) Range: 11.7-15.0 MCHC 33.2 g/dL (Normal) Range: 32.0-36.0 MCH 29.9 pg (Normal) Range: 27.0-34.0 Hematocrit 40.7 % (Normal) Range: 34.0-44.0 MCV 90 fL (Normal) Range: 80-98 Hemoglobin 13.5 g/dL (Normal) Range: 11.5-15.0 RBC 4.51 {x10E6/uL} (Normal) Range: 3.80-5.10 WBC 4.8 {x10E3/uL} (Normal) Range: 4.0-10.5 :39 METABOLIC PANEL, Comments: PATIENT WAS FASTINGPERFORMED BY: [facility]LAstra [facility] CenterMglqfx4710 [facility] [id number] Information: [id number] COMPREHENSIVE (40621) ALT (SGPT) 20 [iU]/L (Normal) Range: 0-40 [...] Glucose, Serum 94 mg/dL (Normal) Range: 65-99 12-Lka-448517:39 TSH (THYROID STIMULATING Comments: PATIENT WAS FASTINGPERFORMED BY: minicabitCoAstra Health CenterXgelxx8751 [facility] [id number] HORMONE) (70910) TSH 2.830 {uIU/mL} (Normal) Range: 0.450-4.500 :39 MICROALBUMIN URINE QUANT Comments: PATIENT WAS FASTINGPERFORMED BY: [place] LabCoAstra [facility] CenterQfkabx2574 [facility] [id number] (61400) Creatinine, Urine 107.7 mg/dL (Normal) Range: 15.0-278.0 Microalb/Creat Ratio 4.0 {mg/g_creat} (Normal) Range: 0.0-30.0 Microalbumin, Urine 4.3 ug/mL (Normal) Range: 0.0-17.0 :39 LIPID PANEL (33379) Comments: PATIENT WAS FASTINGPERFORMED BY: ADI AutoESL Xlmqzv8179 [facility] [id number]; appt 06/25/11 LDL/HDL Ratio 1.9 {ratio_units} (Normal) Range: 0.0-3.2 LDL Cholesterol Calc 108 mg/dL (Abnormal) Range: 0-99 VLDL Cholesterol Aneesh 15 mg/dL (Normal) Range: 5-40 HDL Cholesterol 56 mg/dL (Normal) Comments: According to ATP-III Guidelines, HDL-C >59 mg/dL is considered anegative risk factor for CHD. Triglycerides 76 mg/dL (Normal) Range: 0-149 Cholesterol, Total 179 mg/dL (Normal) Range: 100-199 65-Cgh-600096:03 HEMOGLOBIN GLYCLATED (HGB Comments: PATIENT NOT FASTINGPERFORMED BY: [employer] Wjfewe3254 [facility] [id number] Information: [id number] A1C) (97166) Hemoglobin A1c 6.0 % (Abnormal) Range: 4.8-5.6 Comments: Increased risk for diabetes: 5.7 - 6.4 Diabetes: >6.4 Glycemic control for adults with diabetes: <7.0 31-Onu-326608:42 Blood Glucose , Office (54131) Blood Glucose , Office 120 (Normal) Comments: patient reported. Showed me on her meter and declined to have done in office today. 16-Wog-444357:32 Microscopic Examination Comments: PATIENT WAS FASTINGPERFORMED BY: AutoESL Bezdrj8143 [facility] [id number] Bacteria Moderate (Abnormal) Mucus Threads Present (Normal) Epithelial Cells (non renal) 0-10 {/hpf} (Normal) Range: 0 - 10 RBC 0-3 {/hpf} (Normal) Range: 0 - 3 WBC 0-5 {/hpf} (Normal) Range: 0 - 5 53-Soa-555572:32 URINALYSIS, W/ MICRO (98890) Comments: PATIENT WAS FASTINGPERFORMED BY: [facility] MediaAstra Health CenterOawmbf9369 [facility] [id number] Microscopic Examination See below: (Normal) Bilirubin Negative (Normal) Microscopic Examination MICRON (Normal) Comments: Microscopic follows if indicated. Nitrite, Urine Negative (Normal) Urobilinogen,Semi-Qn 0.2 mg/dL (Normal) Range: 0.0-1.9 Glucose Negative (Normal) Ketones Negative (Normal) Occult Blood Negative (Normal) Appearance Clear (Normal) Protein Negative (Normal) WBC Esterase Negative (Normal) pH 7.0 (Normal) Range: 5.0-7.5 Urine-Color Yellow (Normal) Specific [place] 1.020 (Normal) Range: 1.005-1.030 07-Bbn-331879:32 METABOLIC PANEL, COMPREHENSIVE Comments: PATIENT WAS FASTINGPERFORMED BY: [facility] MediaAstra Health CenterFezaql6052 [facility] [id number] (66427) ALT (SGPT) 18 [iU]/L (Normal) Range: 0-40 [...] Glucose, Serum 90 mg/dL (Normal) Range: 65-99 98-Tgc-962510:32 CBC WITH MANUAL DIFF Comments: PATIENT WAS FASTINGPERFORMED BY: LabCoAstra Health CenterMxdhck9690 [facility] [id number] Information: [id number] (76193) Immature Grans (Abs) 0.0 {x10E3/uL} (Normal) Range: [...] 3.80-5.10 WBC 5.0 {x10E3/uL} (Normal) Range: 4.0-10.5 45-Igz-428628:32 TSH (64261) Comments: PATIENT WAS FASTINGPERFORMED BY: [address] [id number] TSH 3.890 {uIU/mL} (Normal) Range: 0.450-4.500 :32 MICROALBUMIN: CREATININE RATIO Comments: PATIENT WAS FASTINGPERFORMED BY: [address] [id number] (99548) AND (17334) Microalb/Creat Ratio 2.7 {mg/g_creat} (Normal) Range: 0.0-30.0 Microalbumin, Urine 3.2 ug/mL (Normal) Range: 0.0-17.0 Creatinine, Urine 117.9 mg/dL (Normal) Range: 15.0-278.0 :32 LIPID PANEL (93456) Comments: PATIENT WAS FASTINGPERFORMED BY: [place] 4087470 [facility] [id number] LDL/HDL Ratio 1.8 {ratio_units} (Normal) Range: 0.0-3.2 LDL Cholesterol Calc 115 mg/dL (Abnormal) Range: 0-99 VLDL Cholesterol Aneesh 16 mg/dL (Normal) Range: 5-40 HDL Cholesterol 64 mg/dL (Normal) Comments: According to ATP-III Guidelines, HDL-C >59 mg/dL is considered anegative risk factor for CHD. Triglycerides 79 mg/dL (Normal) Range: 0-149 Cholesterol, Total 195 mg/dL (Normal) Range: 100-199 41-Zjw-568154:29 PELVIC (NON ) Radiology See Note Comments: [...] on 08/10/10 1410 Sign by: Lizzy Day 42-Pcy-65972:00 TRANSVAGINAL NON- Radiology See Note Comments: ADDENDUM [...] (ACTIVATED PARTIAL Comments: PATIENT NOT FASTINGPERFORMED BY: [place] [id number] [facility] [id number] THROMBOPLASTIN TIME) (44992) aPTT 29 {sec} (Normal) Range: 24-33 Comments: This test has not been validated for monitoring unfractionated heparintherapy. aPTT-based therapeutic ranges for unfractionated heparintherapy have not been established. For general guidelines onHeparin monitoring, refer to the [facility] Services. 16-Gpc-437441:44 PT (PROTHROMBIN TIME) (70816) Comments: PATIENT NOT FASTINGPERFORMED BY: [facility]6370 [facility] [id number] Prothrombin Time 10.5 {sec} (Normal) Range: 8.7-11.5 INR 1.0 (Normal) Range: 0.8-1.2 Comments: Reference interval is for non-anticoagulated patients. . Suggested INR therapeutic range for Vitamin K anta gonist therapy: Standard Dose (moderate intensity therapeutic range): 2.0 - 3.0 Higher intensity therapeutic range 2.5 - 3.5 :44 PROLACTIN (40818) Comments: PATIENT NOT FASTINGPERFORMED BY: [facility] Wnpobr9410 [facility] [id number] Prolactin 14.9 ng/mL (Normal) Range: 4.8-23.3 :44 METABOLIC PANEL, Comments: PATIENT NOT FASTINGPERFORMED BY: [facility] Rkdgva2602 [facility] [id number] Information: [id number] COMPREHENSIVE (92056) ALT (SGPT) 22 [iU]/L (Normal) Range: 0-40 [...] 88 mg/dL (Normal) Range: 65-99 :44 TSH (02385) Comments: PATIENT NOT FASTINGPERFORMED BY: [facility]6370 [facility] [id number] TSH 2.410 {uIU/mL} (Normal) Range: 0.450-4.500 :44 CBC (AUTO) (58010) Comments: PATIENT NOT FASTINGPERFORMED BY: [facility]6370 [facility] [id number] MCHC 33.6 g/dL (Normal) Range: 32.0-36.0 Platelets 295 {x10E3/uL} (Normal) Range: 140-415 RDW 14.0 % (Normal) Range: 11.7-15.0 Hematocrit 38.7 % (Normal) Range: 34.0-44.0 MCH 30.1 pg (Normal) Range: 27.0-34.0 MCV 90 fL (Normal) Range: 80-98 Hemoglobin 13.0 g/dL (Normal) Range: 11.5-15.0 RBC 4.32 {x10E6/uL} (Normal) Range: 3.80-5.10 WBC 7.7 {x10E3/uL} (Normal) Range: 4.0-10.5 :23 HgA1C , Office (60205) HgA1C , Office 6.1 % (Normal) Range: 4.6 - 7.1 :23 Blood Glucose , Office (74374) Blood Glucose , Office 100 (Normal) :18 CBC With Differential/Platelet Comments: PATIENT WAS FASTINGPERFORMED BY: [facility]6370 [facility] [id number] Immature Grans (Abs) 0.0 {x10E3/uL} (Normal) Range: [...] 3.80-5.10 WBC 6.1 {x10E3/uL} (Normal) Range: 4.0-10.5 21-Xgq-665800:18 Comp. Metabolic Panel (14) Comments: PATIENT WAS FASTINGPERFORMED BY: LabCoAstra Health CenterUksacb5589 [facility] [id number] ALT (SGPT) 18 [iU]/L (Normal) Range: 0-40 [...] Glucose, Serum 99 mg/dL (Normal) Range: 65-99 51-Tky-067309:18 Lipid Panel With LDL/HDL Comments: PATIENT WAS FASTINGPERFORMED BY: [employer] [facility] [id number] Ratio HDL Cholesterol 53 mg/dL (Normal) Comments: [...] 2.770 {uIU/mL} Comments: PATIENT WAS FASTINGPERFORMED BY: [employer] [facility] [id number] (Normal) Range: 0.450-4.500 :48 HgA1C , Office (25204) HgA1C , Office 6.2 % (Normal) Range: 4.6 - 7.1 :48 Blood Glucose , Office (25540) Blood Glucose , Office 97 (Normal) :46 CBC With Differential/Platelet Comments: PATIENT WAS FASTINGPERFORMED BY: LabCoR[facility] [place] 5545170 [facility] [id number] Baso (Absolute) 0.0 {x10E3/uL} (Normal) Range: 0.0-0.2 [...] Panel (14) Comments: PATIENT WAS FASTINGPERFORMED BY: [employer] Bwrkie8653 [facility] [id number] A/G Ratio 1.5 (Normal) Range: 1.1-2.5 Albumin, [...] Serum 103 mg/dL (Abnormal) Range: 65-99 If -Macedonian >59 mL/min/1.73 Comments: Note: Persistent reduction for [...] With LDL/HDL Comments: PATIENT WAS FASTINGPERFORMED BY: [address] [facility] [id number] Ratio Cholesterol, Total 179 mg/dL (Normal) Range: [...] Cholesterol Aneesh 14 mg/dL (Normal) Range: 5-40 06-Hyr-21075:46 Thyroxine (T4) Free, Direct, S Comments: PATIENT WAS FASTINGPERFORMED BY: LabCoAstra Health CenterZbqwqk7040 [facility] [id number] T4,Free(Direct) 1.13 ng/dL Range: 0.61-1.76 (Normal) 30-Jul-2008 Triiodothyronine,Free,Seru 3.0 pg/mL (Normal) Comments: PATIENT WAS FASTINGPERFORMED BY: LabCoAstra Health CenterSuosyo9190 [facility] [id number] 9:46 m Range: 2.3-4.2 30-Jul-2008 TSH 2.949 {uIU/mL} Comments: PATIENT WAS FASTINGPERFORMED BY: LabCoAstra Health CenterOmcpga1685 [facility] [id number] 9:46 (Normal) Range: 0.450-4.500 16-Heg-46142:43 Blood Glucose , Office (75634) Comments: done>Wf. Blood Glucose , Office 100 (Normal) 0-Hya-532638:30 GLUP 105 mg/dL (Normal) Comments: GLU,2HPPG 75gm GLUC PPG GLUP from 1208:[id number]. 2-Soh-518782:24 ESR SED RATE 31 mm/h (Abnormal) Range: 0-30 2-Cdz-124014:24 HGB A1C 6.7 % (Abnormal) Range: 4.0-6.3 Comments: The methodology of Hgb A1C has changed to Stevens BehringDimension RXL. No significant changes in patientresults are expected. The reference range remains the same. 9-Txx-739476:03 BREAST UNILATERAL US () Radiology Report See Note (Normal) Comments: Exam Number: [id number] TARGETED RIGHT BREAST ULTRASOUND HISTORYAbnormal mammogram. High [...] Report See Note (Normal) Comments: Exam Number: [id number] TARGETED RIGHT BREAST ULTRASOUND HISTORYAbnormal mammogram. High-resolution [...] werealso examined with computer-aide d detection software (Alexis Bittar.). Reported By: PHYLLIS HEWITT M.D. 21-Jul-20088:36 [facility] DIGITAL & CAD Radiology Report See Note (Normal) Comments: Exam Number: [id number] MAMMOGRAM, BILATERAL SCREENING DIGITAL AND CAD HISTORYRoutine [...] patient reported a previous study performed at [facility]. That examination was too old and [...] mammograms werealso examined with computer-aided detection software ([employer], [employer]ek[employer].). Reported By: PHYLLIS HEWITT M.D. 22-Fhz-82067:26 H pylori, IgM, IgG, IgA Ab Comments: PERFORMED BY: [facility]6370 [facility] [id number] H. pylori IgG, Abs <0.9 U/mL (Normal) [...] Diarrhea Unspecified osteoarthritis, unspecified site : Reviewed [employer] Letter Indication: Unspecified osteoarthritis, unspecified site Controlled [...] - Strool Based DNA Test, CRC SCREEN (85280)Indication: Screening for colon cancer On: 70-Nxq-210547:51 Request TSH (49765)Indication: Controlled diabetes mellitus type II without complication On: 1-Dpg-216548:53 Request URINALYSIS, W/ MICRO (93845)Indication: Controlled diabetes mellitus type II without complication On: 3-Jbp-667359:53 Request MICROALBUMIN: CREATININE RATIO (53083) AND (02023)Indication: Controlled diabetes mellitus type II without complication On: 9-Kfe-231582:53 Request METABOLIC PANEL, COMPREHENSIVE (47454)Indication: Controlled diabetes mellitus type II without complication On: 9-Jur-964025:53 Request LIPOPROTEIN, BLD, BY NMR (92804)Indication: Controlled diabetes mellitus type II without complication On: 5-Cvp-297435:53 Request LIPID PANEL (83969)Indication: Controlled diabetes mellitus type II without complication On: 2-Qen-642117:53 Request CBC W/AUTO DIFF WBC (74212)Indication: Controlled diabetes mellitus type II without complication On: 5-Lwu-176054:52 Request HGB A1C (36454)Indication: Controlled diabetes mellitus type II without complication On: 22-Mar-20178:18 Request LIPID PANEL (17076)Indication: Hypercholesteremia On: 22-Mar-20178:17 Request HGB A1C (52586)Indication: Uncontrolled type II diabetes mellitus On: 31-Oct-2016 Request POTASSIUM SERUM (65115)Indication: High potassium On: 9-Cpj-626566:06 Request HELICO PYLORI, STOOL, INFCT ANTIGEN (54275)Indication: NSAID long-term use On: 6-Gep-417652:05 Request TSH (27166)Indication: Uncontrolled type II diabetes mellitus On: 1-Noo-598390:58 Request TSH (53143)Indication: Pain in unspecified joint On: 82-Xkz-830638:41 Request CBC WITH MANUAL DIFF (26161)Indication: Pain in unspecified joint On: 75-Zod-436495:41 Request METABOLIC PANEL, COMPREHENSIVE (57688)Indication: Pain in unspecified joint On: 11-Ept-953876:41 Request URINALYSIS, W/ MICRO (07210)Indication: Benign essential hypertension On: 84-Pim-674025:06 Request MICROALBUMIN: CREATININE RATIO (43745) AND (88677)Indication: Benign essential hypertension On: 66-Uws-449280:06 Request URINE CED CULTURE-IDENTIFICATN (05067)Indication: Other abnormal finding of urine On: 47-Rty-505149:56 Request TSH (58707)Indication: Controlled diabetes mellitus type II without complication On: :41 Request URINALYSIS, W/ MICRO (74353)Indication: Benign essential hypertension On: 8-Sby-736661:41 Request MICROALBUMIN: CREATININE RATIO (25910) AND (35051)Indication: Benign essential hypertension On: :41 Request METABOLIC PANEL, COMPREHENSIVE (52123)Indication: Benign essential hypertension On: :41 Request LIPID PANEL (35877)Indication: Benign essential hypertension On: :41 Request CBC WITH MANUAL DIFF (57430)Indication: Benign essential hypertension On: :41 Request TSH (82878)Indication: Uncontrolled type II diabetes mellitus On: :37 Request METABOLIC PANEL, COMPREHENSIVE (44200)Indication: Uncontrolled type II diabetes mellitus On: :36 Request MICROALBUMIN: CREATININE RATIO (16314) AND (13585)Indication: Uncontrolled type II diabetes mellitus On: :36 Request LIPID PANEL (16176)Indication: Uncontrolled type II diabetes mellitus On: :36 Request CBC WITH MANUAL DIFF (42854)Indication: Uncontrolled type II diabetes mellitus On: :36 Request H. PYLORI BLD TEST UREASE NON-RAD (52061)Indication: Epigastric pain On: 77-Hlz-30211:09 Request Planned Encounters Medical; 3 Month FU - On: 21-Jul-2018 11:45 [facility] Nina Jiménez DO, DO, Kathleen Planned Procedures Bone Density StudyBy: Tino ALONSO, On: 03-Jul-2018 Intent Nina Stover DO MAMMOGRAM BREAST BILATERAL On: 03-Jul-2018 Intent SCREENING DIGITAL (88384)By: Nina Jiménez DO, DO, Kathleen CT SCAN OF ABDOMEN AND PELVIS WITH On: 26-Jul-2017 Intent CONTRAST (97531)By: Nina Jiménez DO, DO, Kathleen ELECTROCARDIOGRAM, COMPLETE (ECG) On: 26-Jul-2017 Intent (27564)By: Nina Jiménez DO Comments: nsr no acute chg Nina Jiménez DO MAMMOGRAM, SCREENING, BOTH BREAST On: 01-Nov-2016 Intent (80901)By: Nina Jiménez DO, DO, Kathleen Echo CompleteBy: Tino ALONSO, On: 18-May-2016 Intent Nina Stover DO Comments: dr mckee Holter Monitor 24 hrsBy: Tino On: 04-May-2016 Intent Nina ALONSO DO, Kathleen ELECTROCARDIOGRAM, COMPLETE (ECG) On: 04-May-2016 Intent (25338)By: Nina Jiménez DO Comments: ? a fib vs atrial tachycardia - df rev as well -- thought maybe some flutter trying to breakthru where we see P waves -- pt asx and hemodynamically stable Nina Jiménez DO MRI ANKLE LEFT WO CONTRAST On: 14-Nov-2015 Intent (08971)By: Nina Jiménez DO, DO, Kathleen Aerosol Treatment (08889)By: Slarb On: 08-Dec-2014 Intent Nette VASQUEZ EKG (55065)By: Tino ALONSO, On: 16-Aug-2014 Intent Nina Stover [...] 08-Jul-2013 Intent (G8553)By: Geovanna Nuñez LPN EKG (89199)By: Trisha Emery MD On: 03-Jul-2013 Intent Comments: see scanned document of test done to see results reviewed today with patient Eprescribed prescriptions On: 08-Apr-2013 Intent (G8553)By: Geovanna Nuñez LPN EKG (23583)By: Tino ALONSO, On: 18-Aug-2012 Intent Nina Stover DO Comments: nsr no acute chg Eprescribed prescriptions On: 18-Aug-2012 Intent (G8553)By: Lidya Stephenson LPN Eprescribed prescriptions On: 08-May-2012 Intent (G8553)By: Nina Jiménez DO, DO, Kathleen Eprescribed prescriptions On: 08-May-2012 Intent (G8553)By: Geovanna Nuñez LPN CT - Neck (IV Contrast Needed)By: On: 28-Oct-2011 Intent Nina Jiménez DO, DO, Comments: follow up original image done at [facility]-- ( mri cervical spine) Nina EKG (15753)By: Tino ALONSO, On: 25-Jul-2011 Intent Nina Stover DO Comments: NSR NO ACUTE CHG Ultrasound - PelvisBy: Tino ALONSO, On: 01-Dec-2010 Intent Nina Stover DO Ultrasound - PelvisBy: Tino ALONSO, On: 02-Aug-2010 Intent Nina Stover DO Comments: may do vaginal probe if need to EKG (84492)By: Tino ALONSO, On: 16-Feb-2010 Intent Nina Stover DO Comments: nsr no acute chnages FLU VAC, SPLIT, >3 YEARS, On: 29-Jul-2008 Intent INTRAMUSC (25684)By: Nina Jiménez DO DONina IMMUNIZ ADMNIN, 1 VAC, SNGL/COMBO On: 29-Jul-2008 Intent (76488)By: Nina Jiménez DO Comments: lot # [id number]- 02/15/0962foai-IEMHwgzji-BIqtpy- 0.5ML chenderson tolerated well Tino DO, Nina IMMUNIZ ADMNIN, 1 VAC, SNGL/COMBO On: 29-Jul-2008 Intent (20660)By: Nina Jiménez DO Comments: lot # [id number]- 12/27/20191789iaij-NIKTqpoec-LPhnvv- O.5ML chenderson tolerated well Tino DO, Nina PNEUM VAC ADLT/IMUMNOSPR, On: 29-Jul-2008 Intent SBC/INTRM (66452)By: Nina Jiménez DO, DO, Kathleen EKG (46174)By: Tino , On: 29-Jul-2008 Intent Nina Stover DO MAMMOGRAM, SCREENING, BOTH BREASTS On: 04-Jun-2008 Intent (95043)By: Jojo Santoyo Instructions Name Dates Details Physical [...] Pain,Unspecified Site (789.00) [facility]Nina Ayon; dia guarantor
--- OUTSIDE RECORDS SUMMARY | 2018-09-13 21:12 | XMS RPT_ITS | Continuity of Care Document ---
:1955 Author Organization [facility] Address [facility] [address] Phone Care Team Providers Name Role Phone [...] : 08-Jun-2008 Discontinued Comments:This order discontinued per [facility]. PENLAC, 8% (External Solution) apply Solution [...] VAC ADLT/IMUMNOSPR, Date: 14-Nov-2015 Completed 14-Nov-2015 SBC/INTRM (46548) Comments: Lot:[id number]:04/05/17Dose:0.5mgRoute:imSite:david Boo By:WILLI signed Cardioversion Completed Comments: 2015 Colonoscopy Completed Comments: 07-27-08 - Diverticulitis Diverticulitis (562.11) Completed Comments: Colonoscopy 07-27-08 lt finger sx Completed Comments: 03/01 Date Value Details 22-Apr-2018 12 Lead Electrocardiogram Result: Comments: See Note; NOTES: [facility] Cardiovascular Services [address] [place] [address] 12 Lead EKG 04/19/18 1456 MR#: [id number] Acct: [id number] Name: NINA AYON ep #: [id number] : 1955 62 From: Bright Peng MD [...] ECG Confirmed by BRIGHT PENG ([id number]), editor trade journal OBDULIO PURDY ([id number]) on 04/22/2018 1:27:45 PM Referred By: JOHN Confirmed By: BRIGHT PENG 04/22/18 1327 Date Bright Peng MD CC: Nina Jiménez DO; Cedric Sylvester MD Signed 19-Apr-2018 Emergency Department Summary Result: Comments: See Note; NOTES: [facility] Medical Records Department [address] [place] [address] Emergency Department Summary 04/19/18 1653 MR#: [id number] Acct: [id number] Name: NINA AYON Rep #: [id number] : 1955 62 From: Cedric Sylvester MD [...] pleuritic component This note was generated with [employer] dictation software. It may contain incorrect words, [...] your Primary Care Provider. Call [facility] ([phone]) or report to the closest Emergency Room. Call 911 if necessary. 04/19/18 1701 <Electronically signed by Cedric Sylvester MD> Date Cedric Sylvester MD Cosig ner Signature (If Indicated): Date CC: Nina Jiménez DO 19-Apr-2018 Chest 1 View (Portable) Result: Comments: See Note; NOTES: [facility] Imaging Services [address] [place] [address] Chest 1 View (Portable) MR#: [id number] Acct: [id number] Name: NINA AYON Rep #: [id number] : 1955 F 62 From: Dolly Hardy MD PCP: Nina Jiménez DO Status: PRE ER Study: Chest 1 View (Portable) Date of Exam: 04/19/18 Exam# [id number] Ordering Dr: Cedric Sylvester MD STUDY: X-RAY [...] CC: Nina Jiménez DO; Cedric Sylvester MD Push Bench Operator Helper: Signed 10-Feb-2018 Cardiology Visit Report Result: Comments: See Note; NOTES: [facility] [address] [place] [address] OFFICE VISIT Date of Service: 02/10/18 MR#: [id number] Acct: [id number] Name: NINA AYON Rep #: [id number] : 1955 Provider: KATHY Snider Age/Sex: 62/F [place] [facility] Status: Signed HPI HPI Details: [...] insufficiency (Chronic) Paroxysmal atr ial fibrillation (Acute) retirement (current) use of anticoagulants (Chronic) GERD (gastroesophageal [...] underwent a transthoracic echocardiogram on 11/07/2016 at [facility]. The results are as noted below. [...] THIS IS A24 HOUR HOLTER MONITOR IN [facility]. MINIMUM HEART RATE WAS 92 [...] We will continue to monitor this. 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 Imaging Services [address] [place] [address] Chest PA and Lateral MR#: [id number] Acct: [id number] Name: GABOJINNINA B Rep #: [id number] : 1955 F 62 From: Leslye Sue MD PCP: Nina Jiménez DO Status: REG CLI Study: Chest PA and Lateral Date of Exam: 02/10/18 Exam# [id number] Ordering Dr: Haile Mckee MD STUDY: X-RA [...] CC: Nina Jiménez DO; Haile Mckee MD Push Bench Operator Helper: Signed 04-Feb-2018 Stress Report Result: Comments: See Note; NOTES: [facility] Cardiovascular Services [address] [place] [address] MR#: [id number] Acct: [id number] Name: GABONINA B Rep #: [id number] : 62 From: Haile Mckee MD Primary [...] and occasional PVCs during recovery. The functional [facility] [place] was considered average. There was [...] %. Thi s note was generated with [employer] software. It may contain incorrect words, spelling, and punctuation that were not noted in checking the note before signing. 02/04/18 5033 <Randy person signed by Haile Mckee MD> Date Haile Mckee MD CC: Nina Jiménez DO; Haile Mckee MD Date Dictated: 02/04/18 1354 Date Transcribed: 02/04/181353 Push Bench Operator Helper: PM Signed 09-Jan-2018 Cardiology Visit Report Result: Comments: See Note; NOTES: [facility] 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 The results are as noted below. [...] management and follow- up. Orders Orders: 7. 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 anticoagulant Z79.01 Coding Level of Care Code Off vis,est,level 4 Diagnoses Chest pain, unspecified type R07.9 Chest pain type: unspecified Paroxysmal atrial fibrillation I48.0 Nonrheumatic mitral valve insufficiency I34.0 Non-rheumatic tricuspid valve insufficiency I36.1 Hyper lipidemia, unspecified hyperlipidemia type E78.5 Hyperlipidemia type: unspecified Essential hypertension I10 Hypertension type: essential hypertension retirement current use of anticoagulant Z79.01 1103 <Electronically signed by Haile Mckee MD> Date Haile Mckee MD Cosigner Signature: Date (if applicable) CC: Nina Jiménez DO 09-Jan-2018 12 Lead EKG performed [place] [facility] Result: Comments: See Note; NOTES: [facility] [address] [place] [address] 12 Lead EKG performed by [facility] 01/09/185 MR#: [id number] Acct: [id number] Name: NINA AYON Rep #: [id number] : 1955 62 From: Haile Mckee MD Attending Dr: Haile Mckee MD Status: [facility] Ordering Dr: Haile Mckee MD Date: 01/09/18 [place] [facility] [place] Sex: F C Admitted : BMS/12 Lead EKG performed by [facility] ECG Report Interpretation Sinus Rhythm - occasional ectopic ventricular beat Electronically signed on 01/09/2018 at 12:2 4 by Haile Mckee 01/09/181226 Date Haile Mckee MD CC: Nina Jiménez DO Date Dictated: 01/09/181024 Date Transcribed: 01/09/181024 Push Bench Operator Helper: PM Signed 09-Aug-2017 Abdomen/Pelvis WITH Contrast Result: Comments: See Note; NOTES: [facility] Imaging Services [address] [place] [address] Abdomen/Pelvis WITH Contrast MR#: [id number] Acct: [id number] Name: NINA AYON Rep # : [id number] : 1955 F 62 From: Ganga Argueta PCP: Nina Jiménez DO Status: REG CLI Study: Abdomen/Pelvis WITH Contrast Date of Exam: 08/09/17 Exam# [id number] Ordering Dr: Nina Jiménez DO STUDY: CT [...] of the lumbar spine. ORDE R #: [id number] CT/Abdomen/Pelvis WITH Contrast IMPRESSION: No acute findings in the abdomen or pelvis. Normal appendix. No hydronephrosis or urinary tract stones. No evidence of bowel obstruction. M ild sigmoid colon diverticulosis. Moderate size hiatal hernia. Electronically Signed: Ganga Argueta MD at 8:11 EST , Service support , CC: Nina Jiménez DO Push Bench Operator Helper: Signed 07-Nov-2016 Echocardiogram Complete Result: Comments: See Note; NOTES: [facility] Cardiovascular Services [address] [place] [address] Echo Complete 11/07/16 1027 MR#: [id number] Acct: [id number] Name: NINA AYON Rep #: [id number] : 1955 61 From: Haile Mckee MD Attending Dr: Sanam Coronel NP Status: REG CLI Ordering Dr: Sanam Coronel E TRAVEL ACCOMMODATION INSPECTOR-C Date: 11/07/16 Location: [facility] Sex: F C [...] mmHg. Ordering Physician: Sanam Castro Referring Physician: iNna Jiménez Performed By: Aide Snider, RDCS, RVT 11/07/161733 Date Haile Mckee MD CC: Sanam Coronel TRAVEL ACCOMMODATION INSPECTOR; Nina Jiménez DO Date Dictated: 11/07/16 1027 Date Transcribed: 11/07/161733 Push Bench Operator Helper: Signed 02-Nov-2016 SCREENING MAMM (CAD), BILAT Result: Comments: See Note; NOTES: [facility] Imaging Services [address] [facility] [place] [address] Verdana 4d SCREENING MAMM (CAD), BILAT MR#: [id number] Acct: [id number] Name: DARÍO AYON Rep #: [id number] : 1955 F 61 From: Jaya Mac MD PCP: Nina Jiménez DO Status: REG I Study: SCREENING MAMM (CAD), BILAT Date of Exam: 11/02/16 Exam# [id number] Ordering Dr: Nina Kingsley DO MAMMOGRAPHY - [...] will be sent to the patient by [facility] facility within 30 days. Approximately 10% of breast cancers are not detected by mammography. A normal mammogram should not delay biopsy of a clinically suspicious abnormality. [id number] Electronicall y Signed: Jaya Mac MD at 8:27 EDT Tel [phone], Service support [phone], CC: Nina Jiménez DO Push Bench Operator Helper: Signed 04-Jul-2016 Operative Report Result: Comments: See Note; NOTES: [facility] Medical Records Department [address] [place] [address] Operative Report MR#: [id number] Acct: [id number] Name: NINA AYON Rep #: [id number] : 1955 61 From: Juan Covington MD PCP: Nina Jiménez DO Status: [facility] DATE OF SERVICE: 07/03/2016 DATE OF SERVICE: [...] MD Primary Care Physician T: NTS JOB: [id number] 07/04/16 0615 <Electronically signed by Juan Covington MD> Date Juan Covington MD Cosigner Signature (If Indicated): Date CC: Juan Covington MD; Nina Jiménez DO; Haile Mckee MD Date Dictated: 07/03/16 1104 Date Transcribed: 07/03/161103 Push Bench Operator Helper: Signed 03-Jul-2016 Operative Report Result: Comments: See Note; NOTES: [facility] Medical Records Department [address] [place] [address] Operative Report 07/03/16 1642 MR#: [id number] Acct: [id number] Name: DARÍO AYON Rep #: [id number] : 1955 61 From: Haile Mckee MD PCP: Nina Jiménez DO Status: [facility] Y Location: [facility] Problem List (1) Atrial fibrillation Status: [...] complica tions This note was generated with [employer] dictation software. It may contain incorrect words, spelling, and punctuation that were not noted in checking the note before signing. 07/03/16 1644 &#6 0;Electronically signed by Haile Mckee MD> Date Haile Mckee MD CC: Nina Jiménez DO; Haile Mckee MD Signed 03-Jul-2016 Echo Transesophageal (KATHY) Result: Comments: See Note; NOTES: [facility] Cardiovascular Services [address] [place] [address] Echo Transesophageal (KATHY) 07/03/16 0947 MR#: [id number] Acct: [id number] Name: TESSA AYALANINA B Rep #: [id number] : 1955 61 From: Haile Mckee MD Attending Dr: Haile Mckee MD Status: [facility] Ordering Dr: Haile Mckee MD Date: 07/03/16 Location: [facility] Sex: F C Admitted: Reason For Study: AFIB Medication KATHY probe passed with minimal difficulty. Cetacaine Topical Sherman given X3 orally. Versed 2 mg given [...] Dictated: 07/03/16 0947 Date Transcribed: 07/03/16 1436 Push Bench Operator Helper: Signed 28-Jun-2016 Chest PA and Lateral Result: Comments: See Note; NOTES: [facility] Imaging Services [address] [place] [address] Verdana 4d Chest PA and Lateral MR#: [id number] Acct: [id number] Name: NINA AYON #: [id number] : 1955 F 61 From: Johnathon Meza PCP: Nina Jiménez DO Status: [facility] Study: Chest PA and Lateral Date of Exam: 06/28/16 Exam# [id number] Ordering Dr: Haile Mckee MD STUDY: X-RAY [...] at 6:38 EST Tel , Service support [phone], CC: Nina Jiménez DO; Haile Mckee MD Push Bench Operator Helper: Signed 19-Jun-2016 Nuclear Stress Test - Chemical Result: Comments: See Note; NOTES: [facility] Imaging Services [address] [place] [address] Candie 4d Nuclear Stress Test - Chemical MR#: [id number] Acct: [id number] Name: Ashlee AYON Rep #: [id number] : 1955 61 From: Haile Mckee MD [...] 60%. Haile Mckee MD T: NTS JOB: [id number] 06/19/161936 <Electronically signed by Haile Mckee MD> Date Haile Mckee MD CC: Nina Diop on DO; Haile Mckee MD Date Dictated: 06/19/161406 Date Transcribed: 06/19/161406 Push Bench Operator Helper: Signed 08-Jun-2016 Echocardiogram Complete Result: Comments: See Note; NOTES: [facility] Cardiovascular Services [address] [facility] [place] [address] Echo Complete 06/08/16 1319 MR#: [id number] Acct: [id number] Name: NINA AYON Rep #: [id number] : 1955 61 From: Haile Mckee MD Attending Dr: Nina Jiménez DO Status: REG CLI Ordering Dr: Nina Jiménez DO Date: 06/08/16 Location: [facility] Sex: F C Admitted: Reas [...] Date Dictated: 06/08/16 1319 Date Transcribed: 06/08/161731 Push Bench Operator Helper: Signed 06-Jul-2014 Hepatobilliary Imaging Result: Comments: See Note; NOTES: [facility] Imaging Services [address] [place] [address] Nuclear Medicine Report MR#: [id number] Acct: [id number] Name: NINA AYON Rep #: [id number] : 1955 F 59 From: Steven Cunha DO PCP: Nina Jiménez DO Status: REG CLI Study: Hepatobilliary Imaging Date of Exam: 07/06/14 Exam# [id number] Ordering Dr: Kacey Patton CL INICAL: 59-year-old [...] Cunha DO at 8:3 5 EST Tel [phone], Service support [phone], CC: Kacey Jiménez DO Push Bench Operator Helper: Signed 02-Jul-2014 Small Bowel Series Only Result: Comments: See Note; NOTES: [facility] Imaging Services [address] [place] [address] Radiology Report MR#: [id number] Acct: [id number] Name: NINA AYON Rep #: [id number] : 1955 F 59 From: Jaya Mac MD PCP: Nina Jiménez DO Status: REG CLI Study: Small Bowel Series Only Date of Exam: 07/02/14 Exam# [id number] Ordering Dr: Kacey Patton CEDURE: SMALL BOWEL [...] Mac MD 11/27/13 at 11:02 EST Tel [phone], Service support [phone], RAD/Small Bowel Series Only IMPRESSION: Normal small bowel series. Electronically Signed: Jaya Mac MD at 11:02 EST Tel [phone], Service support [phone], CC: Kacey Patton; Nina Jiménez DO Push Bench Operator Helper: Signed 23-Jun-2014 Gallbladder Result: Comments: See Note; NOTES: [facility] Imaging Services [address] [place] [address] Ultrasound Report MR#: [id number] Acct: [id number] Name: NINA AYON Rep #: [id number] : 1955 F 59 From: Jaya Mac MD PCP: Nina Jiménez DO Status: REG CLI Study: Gallbladder Date of Exam: 06/23/14 Exam# [id number] Ordering Dr: Kacey Patton STUDY: ABDOMIN AL [...] Jaya Mac MD at 11:48 EST Tel [phone], Service support [phone], CC: Kacey Patton; Nina Jiménez DO Push Bench Operator Helper: Signed Immunization Name Dates Details Influenza (3 years and up) on: 29-Jul-2008 Pneumococcal (2 years and up) on: 14-Nov-2015 Comments: Site: Deltoid (Left) Lot #: [id number] Pneumococcal (2 years and up) on: 29-Jul-2008 Social History Name Dates Details Tobacco use: Never smoker. Status: Active Smoking Status Name Dates Details Never smoker Vital Signs Date Test Result Details 58-Nwy-649195:41 Temperature 97.9 f Comments: Method: Temporal Pulse [...] kg/m2 Body Surface Area Calculated 2.19 m2 5-Ihq-725732:32 Temperature 97.6 f Comments: Method: Temporal Pulse [...] kg/m2 Body Surface Area Calculated 2.22 m2 64-Zqs-273736:57 Pulse 68 /min Comments: Pattern: Regular Respiration [...] Date Description Value Details :39 Lipase Comments: [facility] [address] [place], [place], [address] LIPASE 127 U/L (Normal) Range: 73-393 0-Gwd-659198:39 Liver Profile Comments: [facility] [address] [place], [place], [address] D BILI 0.07 mg/dL (Normal) Range: 0.00-0.30 T BILI 0.30 mg/dL (Normal) Range: 0.20-1.00 ALT 37 U/L (Normal) Range: 13-56 ALK P 88 U/L (Normal) Range: 45-117 AST 30 U/L (Normal) Range: 15-37 GLOB 3.6 g/dL (Normal) Range: 2.2-4.2 ALB 3.9 g/dL (Normal) Range: 3.2-5.0 T PROT 7.5 g/dL (Normal) Range: 6.4-8.2 :10 Basic Metabolic Profile (BMP) Comments: [facility] [address] [facility] [place], [place], [address] GAP 9 (Normal) Range: 5-15 CO2 26.0 [...] A.D.A. criteria.Please note revised GLUCOSE reference range pydcszaid83/02/2018. 3-Zik-617826:10 CBC W/Diff, Automated Comments: [facility] [address] [place], [place], [address] Absolute Lymph 1.31 {X10_3/ul} (Normal) Range: 0.83-4.51 [...] Range: 4.4-11.0 :10 Prothrombin Time w/INR Comments: [facility] [address] [place], [place], [address] INR 1.5 (Normal) PROTIME 17.9 s (Abnormal) Range: 11.7-14.9 9-Ydt-428279:10 Troponin-I Comments: [facility] [address] [place], [address] TROPONIN-I < 0.015 ng/mL (Normal) [...] angiographical evidence. PLEASE NOTE: REFERENCE RANGES EDITED 12/30/1710-Feb-201881-Zhc-413494:44 Basic Metabolic Profile (BMP) Comments: [facility] [address] [place], [place], [address] GAP 8 (Normal) Range: 5-15 CO2 28.0 [...] A.D.A. criteria.Please note revised GLUCOSE reference range vhspqgioh89/02/2018. 93-Etn-365642:44 CBC-Complete Blood Cnt No Diff Comments: [facility] [address] [place], [place], [address]) MPV 11.4 fL (Normal) Range: 6.2-12.0 PLT [...] 4.2-5.4 WBC 6.2 K/mm3 (Normal) Range: 4.4-11.0 54-Jgk-774582:44 Partial Thromboplast Time Comments: [facility] [address] [place], [place], [address] PTT 37.7 s (Abnormal) Range: 24.1-36.2 :44 Prothrombin Time w/INR Comments: [facility] [address] [place], [place], [address] INR 1.8 (Normal) PROTIME 21.0 s (Abnormal) Range: 11.7-14.9 5-Cmn-243812:37 Urinalysis, Office (41792) UA - LEUKOCYTE ESTERASE Moderate (Normal) UA - NITRITE Negative (Normal) URINE UROBILINGN RUBEN TIMED 2 mg/dL (Normal) UA - PROTEIN Negative mg/dL (Normal) UA - PH 7.0 (Normal) UA - BLOOD Hemolyzed Trace (Normal) UA - SPECIFIC GRAVITY 1.010 (Normal) UA - KETONES Negative mg/dL (Normal) UA - BILIRUBIN Negative (Normal) UA - GLUCOSE Negative (Normal) 6-Nip-713125:33 Blood Glucose , Office (74920) Blood Glucose , Office 131 (Normal) 7-Mgk-115471:33 HgA1C , Office (60915) HgA1C , Office 5.9 % (Normal) Range: 4.6 - 7.1 :22 H-Pylori IGA,IGG,IGM (37475) Comments: PATIENT NOT FASTINGPERFORMED BY: [facility] MarltonVlnrsq4381 [facility] [id number] H pylori, IgM Abs <9.0 {units} (Normal) Range: 0.0-8.9 Comments: Negative <9.0 Equivocal 9.0 - 11.0 Positive >11.0 .This test was developed and its performance characteristicsdetermined by [facility]. It has not been cleared or approvedby the Food and Drug Administration. H. pylori, IgA Abs <9.0 {units} (Normal) Range: 0.0-8.9 Comments: Negative <9.0 Equivocal 9.0 - 11.0 Positive >11.0 H. pylori, IgG Abs <0.9 U/mL (Normal) Range: 0.0-0.8 Comments: Negative <0.9 Indeterminate 0.9 - 1.0 Positive >1.0 Effective August the reference interval will be changing to: Negative <0.8 Equivocal 0.8 Positive >0.8 2-Gag-647033:19 Microscopic Examination Comments: PATIENT WAS FASTINGPERFORMED BY: [facility] IntoloopRUSTRqfhap0705 [facility] [id number] Bacteria Few (Normal) Mucus Threads Present (Normal) Epithelial Cells (non renal) >10 {/hpf} (Abnormal) Range: 0 - 10 RBC 3-10 {/hpf} (Abnormal) Range: 0 - 2 WBC >30 {/hpf} (Abnormal) Range: 0 - 5 8-Fum-534000:21 Basic Metabolic Profile (BMP) Comments: Order Date: 05/08/17Order Info: 0667-1 - *BMPComments: Reason:[facility] [address] [place], [place], [address] GAP 5 (Normal) Range: 5-15 CO2 31.0 [...] 7-18 GLU 93 mg/dL (Normal) Range: 70-110 71-Usj-517223:34 HGB A1C (00184) Comments: PATIENT WAS FASTINGPERFORMED BY: [facility] [id number] Hemoglobin A1c 6.5 % (Abnormal) Range: 4.8-5.6 Comments: . Pre-diabetes: 5.7 - 6.4 Diabetes: >6.4 Glycemic control for adults with diabetes: <7.0 :34 MICROALBUMIN: CREATININE RATIO Comments: PATIENT WAS FASTINGPERFORMED BY: IntoloopRUSTPzcevw6038 [facility] [id number] (72718) AND (70025) Microalb/Creat Ratio <13.7 {mg/g_creat} (Normal) Range: 0.0-30.0 Microalbumin, Urine <3.0 ug/mL (Normal) Creatinine, Urine 21.9 mg/dL (Normal) :34 TSH (73488) Comments: PATIENT WAS FASTINGPERFORMED BY: IntoloopRUSTNlsuzt9657 [facility] [id number] TSH 2.420 {uIU/mL} (Normal) Range: 0.450-4.500 :34 Lipid Panel (56069) Comments: PATIENT WAS FASTINGPERFORMED BY: IntoloopRUSTYxlvgh7047 [facility] [id number] LDL/HDL Ratio 1.9 {ratio_units} (Normal) Range: 0.0-3.2 Comments: LDL/HDL Ratio Men Women 1/2 Avg.Risk 1.0 1.5 Av g.Risk 3.6 3.2 2X Avg.Risk 6.2 5.0 3X Avg.Risk 8.0 6.1 LDL Cholesterol Calc 132 mg/dL (Abnormal) Range: 0-99 VLDL Cholesterol Aneesh 15 mg/dL (Normal) Range: 5-40 HDL Cholesterol 71 mg/dL (Normal) Triglycerides 73 mg/dL (Normal) Range: 0-149 Cholesterol, Total 218 mg/dL (Abnormal) Range: 100-199 83-Qer-502276:34 Metabolic Panel, Comprehensive Comments: PATIENT WAS FASTINGPERFORMED BY: [facility]opVirt[facility] MarltonTioyyl9100 [facility] [id number] (12538) ALT (SGPT) 27 [iU]/L (Normal) Range: 0-32 [...] Glucose, Serum 96 mg/dL (Normal) Range: 65-99 62-Hoy-221136:34 CBC WITH MANUAL DIFF (07071) Comments: PATIENT WAS FASTINGPERFORMED BY: [facility] MarltonZauqrm7109 [facility] [id number] Immature Grans (Abs) 0.0 {x10E3/uL} (Normal) Range: [...] 7.4 {x10E3/uL} (Normal) Range: 3.4-10.8 :19 TSH (44508) Comments: PATIENT WAS FASTINGPERFORMED BY: [facility] [id number] TSH 2.050 {uIU/mL} (Normal) Range: 0.450-4.500 :19 URINALYSIS, W/ MICRO (26351) Comments: PATIENT WAS FASTINGPERFORMED BY: [facility] [id number] Microscopic Examination See below: (Normal) Comments: Microscopic was indicated and was performed. Nitrite, Urine Negative (Normal) Urobilinogen,Semi-Qn 0.2 mg/dL (Normal) Range: 0.2-1.0 Bilirubin Negative (Normal) Occult Blood 1+ (Abnormal) Ketones Negative (Normal) Glucose Negative (Normal) Protein Negative (Normal) WBC Esterase 3+ (Abnormal) Appearance Cloudy (Abnormal) Urine-Color Yellow (Normal) pH 7.0 (Normal) Range: 5.0-7.5 Specific [place] 1.015 (Normal) Range: 1.005-1.030 :19 MICROALBUMIN: CREATININE RATIO Comments: PATIENT WAS FASTINGPERFORMED BY: [facility] [id number] (35583) AND (87127) Microalb/Creat Ratio 9.1 {mg/g_creat} (Normal) Range: 0.0-30.0 Microalbumin, Urine 7.4 ug/mL (Normal) Creatinine, Urine 81.3 mg/dL (Normal) :19 METABOLIC PANEL, COMPREHENSIVE Comments: PATIENT WAS FASTINGPERFORMED BY: Intoloop Woixxx4187 [facility] [id number] (05523) ALT (SGPT) 43 [iU]/L (Abnormal) Range: 0-32 [...] Glucose, Serum 104 mg/dL (Abnormal) Range: 65-99 6-Wqz-974246:19 LIPID PANEL (95342) Comments: PATIENT WAS FASTINGPERFORMED BY: DecideQuick6370 [facility] [id number] LDL/HDL Ratio 2.7 {ratio_units} (Normal) Range: 0.0-3.2 Comments: LDL/HDL Ratio Men Women 1/2 Avg.Risk 1.0 1.5 Av g.Risk 3.6 3.2 2X Avg.Risk 6.2 5.0 3X Avg.Risk 8.0 6.1 LDL Cholesterol Calc 145 mg/dL (Abnormal) Range: 0-99 VLDL Cholesterol Aneesh 18 mg/dL (Normal) Range: 5-40 HDL Cholesterol 53 mg/dL (Normal) Triglycerides 89 mg/dL (Normal) Range: 0-149 Cholesterol, Total 216 mg/dL (Abnormal) Range: 100-199 6-Bku-381375:19 CBC W/AUTO DIFF WBC (19155) Comments: PATIENT WAS FASTINGPERFORMED BY: LabCoVirtua MarltonJjjyle0558 [facility] [id number] Immature Grans (Abs) 0.0 {x10E3/uL} (Normal) Range: [...] {x10E3/uL} (Normal) Range: 3.4-10.8 :19 HGB A1C (80654) Comments: PATIENT WAS FASTINGPERFORMED BY: LabCoVirtua MarltonMkyvwb5879 [facility] [id number] Hemoglobin A1c 6.2 % (Abnormal) Range: 4.8-5.6 Comments: . Pre-diabetes: 5.7 - 6.4 Diabetes: >6.4 Glycemic control for adults with diabetes: <7.0 :19 HGB A1C (82383) Comments: PATIENT NOT FASTINGPERFORMED BY: LabCoVirtua MarltonYrwvlj6426 [facility] [id number] Hemoglobin A1c 6.2 % (Abnormal) Range: 4.8-5.6 Comments: . Pre-diabetes: 5.7 - 6.4 Diabetes: >6.4 Glycemic control for adults with diabetes: <7.0 :33 Basic Metabolic Profile (BMP) Comments: Order Date: 06/21/16Order Info: [id number] - *BMPOrder Date: 06/21/16Order Info: [id number] - *BMPComments: Reason:[facility] Ombqarbozw[address] [place], [address] GAP 8 (Normal) Range: 5-15 CO2 27.0 [...] Microscopic Examination Comments: PATIENT NOT FASTINGPERFORMED BY: [employer] [facility] [id number] Bacteria None seen (Normal) Mucus Threads Present (Normal) Epithelial Cells (non renal) 0-10 {/hpf} (Normal) Range: 0 - 10 RBC 0-2 {/hpf} (Normal) Range: 0 - 2 WBC 0-5 {/hpf} (Normal) Range: 0 - 5 :37 URINALYSIS, W/ MICRO (93519) Comments: PATIENT NOT FASTINGPERFORMED BY: [employer] [facility] [id number] Microscopic Examination See below: (Normal) Comments: Microscopic was indicated and was performed. Nitrite, Urine Negative (Normal) Urobilinogen,Semi-Qn 0.2 mg/dL (Normal) Range: 0.2-1.0 Bilirubin Negative (Normal) Occult Blood Negative (Normal) Ketones Negative (Normal) Glucose Negative (Normal) Protein Negative (Normal) WBC Esterase 2+ (Abnormal) Appearance Clear (Normal) Urine-Color Yellow (Normal) pH 8.0 (Abnormal) Range: 5.0-7.5 Specific Converse 1.011 (Normal) Range: 1.005-1.030 :37 TSH (84119) Comments: PATIENT NOT FASTINGPERFORMED BY: Intoloop Qowply4104 [facility] [id number] TSH 2.050 {uIU/mL} (Normal) Range: 0.450-4.500 :37 METABOLIC PANEL, COMPREHENSIVE Comments: PATIENT NOT FASTINGPERFORMED BY: eNovance Zadcvs5907 [facility] [id number] (69001) ALT (SGPT) 31 [iU]/L (Normal) Range: 0-32 [...] Glucose, Serum 96 mg/dL (Normal) Range: 65-99 82-Zwn-300121:37 CBC W/AUTO DIFF WBC (52716) Comments: PATIENT NOT FASTINGPERFORMED BY: LabCoVirtua MarltonDoiscz6720 [facility] [id number] Immature Grans (Abs) 0.0 {x10E3/uL} (Normal) Range: [...] (Normal) Range: 3.4-10.8 :08 HgA1C , Office (38144) HgA1C , Office 5.9 % (Normal) Range: 4.6 - 7.1 :49 HGB A1C (23829) Comments: PATIENT WAS FASTINGPERFORMED BY: IntoloopVirtua MarltonKbzczu8945 [facility] [id number] Hemoglobin A1c 6.1 % (Abnormal) Range: 4.8-5.6 Comments: . Pre-diabetes: 5.7 - 6.4 Diabetes: >6.4 Glycemic control for adults with diabetes: <7.0 :49 TSH (13465) Comments: PATIENT WAS FASTINGPERFORMED BY: IntoloopVirtua MarltonJqbxfg6082 [facility] [id number] TSH 2.280 {uIU/mL} (Normal) Range: 0.450-4.500 :49 MICROALBUMIN: CREATININE RATIO Comments: PATIENT WAS FASTINGPERFORMED BY: IntoloopVirtua MarltonTdkhig7154 [facility] [id number] (53658) AND (98443) Microalb/Creat Ratio <3.5 {mg/g_creat} (Normal) Range: 0.0-30.0 Microalbumin, Urine <3.0 ug/mL (Normal) Creatinine, Urine 85.4 mg/dL (Normal) 8-Amx-655394:49 METABOLIC PANEL, COMPREHENSIVE Comments: PATIENT WAS FASTINGPERFORMED BY: LabCoVirtua MarltonOoujsk5666 [facility] [id number] (98845) ALT (SGPT) 19 [iU]/L (Normal) Range: 0-32 [...] Glucose, Serum 101 mg/dL (Abnormal) Range: 65-99 5-Nsd-952090:49 LIPID PANEL (52527) Comments: PATIENT WAS FASTINGPERFORMED BY: IntoloopVirtua MarltonUthajk3606 [facility] [id number] LDL/HDL Ratio 2.3 {ratio_units} (Normal) Range: 0.0-3.2 Comments: LDL/HDL Ratio Men Women 1/2 Avg.Risk 1.0 1.5 Av g.Risk 3.6 3.2 2X Avg.Risk 6.2 5.0 3X Avg.Risk 8.0 6.1 LDL Cholesterol Calc 132 mg/dL (Abnormal) Range: 0-99 VLDL Cholesterol Aneesh 10 mg/dL (Normal) Range: 5-40 HDL Cholesterol 58 mg/dL (Normal) Triglycerides 48 mg/dL (Normal) Range: 0-149 Cholesterol, Total 200 mg/dL (Abnormal) Range: 100-199 1-Osf-282957:49 CBC W/AUTO DIFF WBC (26575) Comments: PATIENT WAS FASTINGPERFORMED BY: LabDescomplicaVirtua MarltonZgaqjl9580 [facility] [id number]; will review at 08/07 appt Immature Grans [...] Microscopic Examination Comments: PATIENT WAS FASTINGPERFORMED BY: IntoloopVirtua MarltonGacxob3337 [facility] [id number] Bacteria Few (Normal) Mucus Threads Present (Normal) Epithelial Cells (non renal) 0-10 {/hpf} (Normal) Range: 0 - 10 RBC 0-2 {/hpf} (Normal) Range: 0 - 2 WBC 0-5 {/hpf} (Normal) Range: 0 - 5 :48 Blood Glucose , Office (41294) Blood Glucose , Office 75 (Normal) :48 HgA1C , Office (82932) HgA1C , Office 6.0 % (Normal) Range: 4.6 - 7.1 :18 TSH (67731) Comments: PATIENT WAS FASTINGPERFORMED BY: IntoloopVirtua MarltonDnalge2407 [facility] [id number] TSH 1.930 {uIU/mL} (Normal) Range: 0.450-4.500 :18 URINALYSIS, W/ MICRO (39762) Comments: PATIENT WAS FASTINGPERFORMED BY: IntoloopVirtua MarltonAgjbzy8183 [facility] [id number] Microscopic Examination See below: (Normal) Comments: Microscopic was indicated and was performed. Nitrite, Urine Negative (Normal) Urobilinogen,Semi-Qn 0.2 mg/dL (Normal) Range: 0.2-1.0 Bilirubin Negative (Normal) Occult Blood Negative (Normal) Ketones Negative (Normal) Glucose Negative (Normal) Protein Negative (Normal) WBC Esterase 1+ (Abnormal) Appearance Clear (Normal) Urine-Color Yellow (Normal) pH 7.5 (Normal) Range: 5.0-7.5 Specific Converse 1.023 (Normal) Range: 1.005-1.030 :18 MICROALBUMIN: CREATININE RATIO Comments: PATIENT WAS FASTINGPERFORMED BY: IntoloopVirtua MarltonUtxcgf1758 [facility] [id number] (63812) AND (69954) Microalb/Creat Ratio 4.2 {mg/g_creat} (Normal) Range: 0.0-30.0 Microalbumin, Urine 6.3 ug/mL (Normal) Creatinine, Urine 149.4 mg/dL (Normal) :18 METABOLIC PANEL, COMPREHENSIVE Comments: PATIENT WAS FASTINGPERFORMED BY: IntoloopRUSTGoqbka5648 [facility] [id number] (18025) ALT (SGPT) 30 [iU]/L (Normal) Range: 0-32 [...] Range: 65-99 :18 CBC W/AUTO DIFF WBC (02466) Comments: PATIENT WAS FASTINGPERFORMED BY: LabCoRUSTSirvzb8695 [facility] [id number] Immature Grans (Abs) 0.0 {x10E3/uL} (Normal) Range: [...] 6.1 {x10E3/uL} (Normal) Range: 3.4-10.8 :02 TSH (25551) Comments: PATIENT WAS FASTINGPERFORMED BY: LabCoVirtua MarltonKhzcnt4002 [facility] [id number] TSH 2.070 {uIU/mL} (Normal) Range: 0.450-4.500 :02 CBC W/AUTO DIFF WBC Comments: PATIENT WAS FASTINGPERFORMED BY: [facility]6370 [facility] [id number] Information: [id number] (25710) Immature Grans (Abs) 0.0 {x10E3/uL} (Normal) Range: [...] 3.77-5.28 WBC 5.1 {x10E3/uL} (Normal) Range: 3.4-10.8 85-Efu-388233:02 MICROALBUMIN: CREATININE RATIO Comments: PATIENT WAS FASTINGPERFORMED BY: [facility]6370 [facility] [id number] (25552) AND (67631) Microalb/Creat Ratio 4.5 {mg/g_creat} (Normal) Range: 0.0-30.0 Microalbumin, Urine 5.7 ug/mL (Normal) Range: 0.0-17.0 Creatinine, Urine 127.2 mg/dL (Normal) Range: 15.0-278.0 :02 METABOLIC PANEL, COMPREHENSIVE Comments: PATIENT WAS FASTINGPERFORMED BY: [employer] Sportstoys70 [facility] [id number] (01277) ALT (SGPT) 20 [iU]/L (Normal) Range: 0-32 [...] mg/dL (Normal) Range: 65-99 :02 LIPID PANEL (67855) Comments: PATIENT WAS FASTINGPERFORMED BY: [employer] Sportstoys70 [facility] [id number] LDL/HDL Ratio 2.1 {ratio_units} (Normal) Range: 0.0-3.2 [...] Cholesterol, Total 203 mg/dL (Abnormal) Range: 100-199 38-Veo-298239:02 HGB A1C (30729) Comments: PATIENT WAS FASTINGPERFORMED BY: [facility]6370 [facility] [id number] Hemoglobin A1c 6.0 % (Abnormal) Range: 4.8-5.6 Comments: . Pre-diabetes: 5.7 - 6.4 Diabetes: >6.4 Glycemic control for adults with diabetes: <7.0 52-Tiz-145152:15 CULTURE, SPUTUM (59797) Comments: PERFORMED BY: LabCoVirtua MarltonNdpczr8[address] [place] [address] [id number] Information: SRC: SPUTUM Result 1 RRF (Normal) Comments: Routine respiratory jamia Lower Respiratory Culture Final report (Normal) 91-Qgx-079497:45 Rapid Flu (83089 x 2) Influenza A Ag negative (Normal) 18-Hfd-148014:50 HgA1C , Office (42075) HgA1C , Office 6.4 % (Normal) Range: 4.6 - 7.1 87-Job-204260:50 Blood Glucose , Office (45471) Blood Glucose , Office 102 (Normal) Comments: non-fasting 3-Obe-926873:00 Urinalysis, Office (14941) UA - LEUKOCYTE ESTERASE Negative (Normal) UA [...] Microscopic Examination Comments: PATIENT WAS FASTINGPERFORMED BY: [facility]6370 [facility] [id number] Bacteria Moderate (Abnormal) Mucus Threads Present (Normal) Epithelial Cells (non renal) >10 {/hpf} (Abnormal) Range: 0 - 10 RBC 0-2 {/hpf} (Normal) Range: 0 - 2 WBC >30 {/hpf} (Abnormal) Range: 0 - 5 :19 HgA1C , Office (08747) HgA1C , Office 6.1 % (Normal) Range: 4.6 - 7.1 :19 Blood Glucose , Office (16749) Blood Glucose , Office 98 (Normal) :19 HgA1C , Office (63321) HgA1C , Office 5.9 % (Normal) Range: 4.6 - 7.1 :19 Blood Glucose , Office (74038) Blood Glucose , Office 97 (Normal) 39-Vqt-480094:55 METABOLIC PANEL, COMPREHENSIVE Comments: PATIENT NOT FASTINGPERFORMED BY: LabCoRyan Ville 2248670 [facility] [id number] (84936) ALT (SGPT) 17 [iU]/L (Normal) Range: 0-32 [...] Glucose, Serum 85 mg/dL (Normal) Range: 65-99 44-Ovf-408543:55 CBC WITH MANUAL DIFF Comments: PATIENT NOT FASTINGPERFORMED BY: ADI [facility] Uhkbyn8504 [facility] [id number] Information: [id number]; will review at 3-30 appt (05165) Immature Grans (Abs) 0.0 {x10E3/uL} (Normal) Range: [...] (Normal) Range: 3.4-10.8 :41 URINALYSIS, W/ MICRO (64020) Comments: PATIENT WAS FASTINGPERFORMED BY: eNovanceVirtua MarltonDmauar7228 [facility] [id number] Microscopic Examination See below: (Normal) Comments: Microscopic was indicated and was performed. Nitrite, Urine Negative (Normal) Urobilinogen,Semi-Qn 0.2 mg/dL (Normal) Range: 0.0-1.9 Bilirubin Negative (Normal) Occult Blood Negative (Normal) Ketones Negative (Normal) Glucose Negative (Normal) Protein Negative (Normal) WBC Esterase 3+ (Abnormal) Appearance Clear (Normal) Urine-Color Yellow (Normal) pH 6.5 (Normal) Range: 5.0-7.5 Specific Converse 1.020 (Normal) Range: 1.005-1.030 :41 MICROALBUMIN: CREATININE RATIO Comments: PATIENT WAS FASTINGPERFORMED BY: IntoloopVirtua MarltonJzxevk3278 [facility] [id number] (20879) AND (13529) Microalb/Creat Ratio 9.9 {mg/g_creat} (Normal) Range: 0.0-30.0 Microalbumin, Urine 10.2 ug/mL (Normal) Range: 0.0-17.0 Creatinine, Urine 103.0 mg/dL (Normal) Range: 15.0-278.0 :41 METABOLIC PANEL, COMPREHENSIVE Comments: PATIENT WAS FASTINGPERFORMED BY: [facility]Br[facility]6370 [facility] [id number] (78267) ALT (SGPT) 33 [iU]/L (Abnormal) Range: 0-32 [...] mg/dL (Normal) Range: 65-99 :41 LIPID PANEL (71032) Comments: PATIENT WAS FASTINGPERFORMED BY: [facility] [id number] LDL/HDL Ratio 1.8 {ratio_units} (Normal) Range: 0.0-3.2 [...] MANUAL DIFF Comments: PATIENT WAS FASTINGPERFORMED BY: [facility] [place] [id number] Information: [id number] (27130) Immature Grans (Abs) 0.0 {x10E3/uL} (Normal) Range: [...] 7.1 {x10E3/uL} (Normal) Range: 3.4-10.8 :41 TSH (99990) Comments: PATIENT WAS FASTINGPERFORMED BY: Intoloop Fyoukn6775 [facility] [id number] TSH 2.910 {uIU/mL} (Normal) Range: 0.450-4.500 50-Juv-978574:29 HEMOGLOBIN GLYCLATED (HGB Comments: PATIENT NOT FASTINGPERFORMED BY: 3TouchCoRUSTSqgmeu1547 [facility] [id number] Information: [id number] A1C) (81988) Hemoglobin A1c 6.1 % (Abnormal) Range: 4.8-5.6 Comments: . Increased risk for diabetes: 5.7 - 6.4 Diabetes: >6.4 Glycemic control for adults with diabetes: <7.0 :48 HgA1C , Office (11415) HgA1C , Office 9.0 % (Abnormal) Range: 4.6 - 7.1 :48 Blood Glucose , Office (54061) Blood Glucose , Office 125 (Normal) :08 HgA1C , Office (50412) HgA1C , Office 5.8 % (Normal) Range: 4.6 - 7.1 :08 Blood Glucose , Office (29027) Blood Glucose , Office 88 (Normal) 68-Csl-104491:26 Rapid Flu (83357 x 2) Influenza A Ag negative A and B (Normal) :01 HgA1C , Office (13185) HgA1C , Office 6.0 % (Normal) Range: 4.6 - 7.1 :01 Blood Glucose , Office (12715) Blood Glucose , Office 79 (Normal) :01 HgA1C , Office (84249) HgA1C , Office 6.3 % (Normal) Range: 4.6 - 7.1 :00 Blood Glucose , Office (74867) Blood Glucose , Office 99 (Normal) :46 Microscopic Examination Comments: PATIENT WAS FASTINGPERFORMED BY: Intoloop Tubixl7827 [facility] [id number] Bacteria None seen (Normal) Mucus Threads Present (Normal) Epithelial Cells (non renal) 0-10 {/hpf} (Normal) Range: 0 - 10 RBC 0-3 {/hpf} (Normal) Range: 0 - 3 WBC 6-10 {/hpf} (Abnormal) Range: 0 - 5 :46 TSH (72777) Comments: PATIENT WAS FASTINGPERFORMED BY: [employer] Jsvnzj7057 [facility] [id number] TSH 2.400 {uIU/mL} (Normal) Range: 0.450-4.500 :46 URINALYSIS, W/ MICRO (08604) Comments: PATIENT WAS FASTINGPERFORMED BY: [facility]6370 [facility] [id number] Microscopic Examination See below: (Normal) Nitrite, Urine Negative (Normal) Urobilinogen,Semi-Qn 0.2 mg/dL (Normal) Range: 0.0-1.9 Bilirubin Negative (Normal) Occult Blood Negative (Normal) Ketones Negative (Normal) Glucose Negative (Normal) Protein Trace (Normal) WBC Esterase 2+ (Abnormal) Appearance Clear (Normal) Urine-Color Yellow (Normal) pH 8.0 (Abnormal) Range: 5.0-7.5 Specific Converse 1.026 (Normal) Range: 1.005-1.030 :46 MICROALBUMIN: CREATININE RATIO Comments: PATIENT WAS FASTINGPERFORMED BY: IntoloopVirtua MarltonTlglkh2550 [facility] [id number] (46879) AND (54653) Microalb/Creat Ratio 2.4 {mg/g_creat} (Normal) Range: 0.0-30.0 Microalbumin, Urine 3.7 ug/mL (Normal) Range: 0.0-17.0 Creatinine, Urine 151.9 mg/dL (Normal) Range: 15.0-278.0 :46 METABOLIC PANEL, COMPREHENSIVE Comments: PATIENT WAS FASTINGPERFORMED BY: IntoloopVirtua MarltonNfcply1157 [facility] [id number] (90797) ALT (SGPT) 29 [iU]/L (Normal) Range: 0-32 [...] mg/dL (Abnormal) Range: 65-99 :46 LIPID PANEL (32655) Comments: PATIENT WAS FASTINGPERFORMED BY: OY[employer] Sportstoys70 [facility] [id number] LDL/HDL Ratio 1.8 {ratio_units} (Normal) Range: 0.0-3.2 [...] MANUAL DIFF Comments: PATIENT WAS FASTINGPERFORMED BY: eNovanceVirtua MarltonVcqnkf7178 [facility] [id number] Information: SRC: URINE (57275) Immature Grans (Abs) 0.0 {x10E3/uL} (Normal) Range: [...] {x10E3/uL} (Normal) Range: 4.0-10.5 :47 CCP ANTIBODY (20571) Comments: PATIENT WAS FASTINGPERFORMED BY: [employer] [facility] [id number] BY: Intoloop[address] [id number] CCP Antibodies IgG/IgA 22 {units} (Abnormal) Range: 0-19 Comments: Negative <20 Weak positive 20 - 39 Moderate positive 40 - 59 Strong positive >59 :47 SED RATE ERYTHROCYTE Comments: PATIENT WAS FASTINGPERFORMED BY: [employer] [facility] [id number] BY: [address] [id number] (64430) Sedimentation Rate-Westergren 3 mm/h (Normal) Range: 0-40 :47 C-REACTIVE PROTEIN (47485) Comments: PATIENT WAS FASTINGPERFORMED BY: [place] 0259070 [facility] [id number] BY: [address] [id number] C-Reactive Protein, Quant 6.5 mg/L (Abnormal) Range: 0.0-4.9 :47 RHEUMATOID FACTOR-QUANT Comments: PATIENT WAS FASTINGPERFORMED BY: Intoloop[address] [id number] BY: [address] [id number] (04227) RA Latex Turbid. 10.2 {IU/mL} (Normal) Range: 0.0-13.9 :47 YAMIL (ANTINUCLEAR ANTIBODY) Comments: PATIENT WAS FASTINGPERFORMED BY: [address]Touch[address] [id number] BY: [address] [id number] (45803) YAMIL Direct Negative (Normal) :35 HgA1C , Office (12942) HgA1C , Office 6.8 % (Normal) Range: 4.6 - 7.1 :35 Blood Glucose , Office (51271) Blood Glucose , Office 89 (Normal) Comments: PATIENT DID ON HER OWN MACHINE :56 HgA1C , Office (54169) HgA1C , Office 6.0 % (Normal) Range: 4.6 - 7.1 :56 Blood Glucose , Office (15392) Blood Glucose , Office 100 (Normal) 69-Dgp-395649:45 Microscopic Examination Comments: PATIENT WAS FASTINGPERFORMED BY: LabAllison [place] 7313770 [facility] [id number] Bacteria Many (Abnormal) Mucus Threads Present (Normal) Epithelial Cells (non renal) >10 {/hpf} (Abnormal) Range: 0 - 10 RBC 0-3 {/hpf} (Normal) Range: 0 - 3 WBC 11-30 {/hpf} (Abnormal) Range: 0 - 5 :02 HgA1C , Office (02440) HgA1C , Office 6.1 % (Normal) Range: 4.6 - 7.1 :02 Blood Glucose , Office (77478) Blood Glucose , Office 96 (Normal) :41 CBC With Differential/Platelet Comments: PATIENT WAS FASTINGPERFORMED BY: LabCoVirtua MarltonTdrteg0443 [facility] [id number] Immature Grans (Abs) 0.0 {x10E3/uL} (Normal) Range: [...] 3.80-5.10 WBC 5.5 {x10E3/uL} (Normal) Range: 4.0-10.5 26-Fip-565258:41 Comp. Metabolic Panel (14) Comments: PATIENT WAS FASTINGPERFORMED BY: LabCoVirtua MarltonVbopkt6512 [facility] [id number] ALT (SGPT) 22 [iU]/L (Normal) Range: 0-40 [...] With LDL/HDL Comments: PATIENT WAS FASTINGPERFORMED BY: IntoloopVirtua MarltonPhlfdj4823 [facility] [id number] Ratio LDL/HDL Ratio 1.7 {ratio_units} (Normal) Range: [...] Randm Ur Comments: PATIENT WAS FASTINGPERFORMED BY: [facility]6370 [facility] [id number] Microalb/Creat Ratio 5.5 {mg/g_creat} (Normal) Range: 0.0-30.0 Microalbumin, Urine 9.9 ug/mL (Normal) Range: 0.0-17.0 Creatinine, Urine 181.2 mg/dL (Normal) Range: 15.0-278.0 85-Bkh-185812:41 Microscopic Examination Comments: PATIENT WAS FASTINGPERFORMED BY: [facility]6370 [facility] [id number] Bacteria Few (Normal) Mucus Threads Present (Normal) Epithelial Cells (non >10 {/hpf} Range: 0 - 10 renal) (Abnormal) RBC 0-3 {/hpf} (Normal) Range: 0 - 3 WBC 0-5 {/hpf} (Normal) Range: 0 - 5 TSH 2.900 {uIU/mL} Comments: PATIENT WAS FASTINGPERFORMED BY: [facility]6370 [facility] [id number] 1:41 (Normal) Range: 0.450-4.500 15-Ncn-752449:41 Urinalysis, Complete Comments: PATIENT WAS FASTINGPERFORMED BY: [address] RoadDublin [place] [id number] Microscopic Examination See below: (Normal) Nitrite, Urine Negative (Normal) Urobilinogen,Semi-Qn 0.2 mg/dL (Normal) Range: 0.0-1.9 Bilirubin Negative (Normal) Occult Blood Negative (Normal) Ketones Negative (Normal) Glucose Negative (Normal) Protein Negative (Normal) WBC Esterase 1+ (Abnormal) Appearance Clear (Normal) Urine-Color Yellow (Normal) pH 6.5 (Normal) Range: 5.0-7.5 Specific Con[place] 1.024 (Normal) Range: 1.005-1.030 95-Lyp-477584:45 URINALYSIS, W/ MICRO (90650) Comments: PATIENT WAS FASTINGPERFORMED BY: [facility]6370 [facility] [id number] Microscopic Examination See below: (Normal) Nitrite, Urine Negative (Normal) Urobilinogen,Semi-Qn 0.2 mg/dL (Normal) Range: 0.0-1.9 Bilirubin Negative (Normal) Ketones Negative (Normal) Occult Blood Negative (Normal) Glucose Negative (Normal) Protein 1+ (Abnormal) WBC Esterase 1+ (Abnormal) Appearance Turbid (Abnormal) Urine-Color Yellow (Normal) pH 8.5 (Abnormal) Range: 5.0-7.5 Specific [place] 1.027 (Normal) Range: 1.005-1.030 :45 TSH (50196) Comments: PATIENT WAS FASTINGPERFORMED BY: [facility]6370 [facility] [id number] TSH 1.890 {uIU/mL} (Normal) Range: 0.450-4.500 28-Bnr-489346:45 MICROALBUMIN: CREATININE RATIO Comments: PATIENT WAS FASTINGPERFORMED BY: [place] 0259070 [facility] [id number] (27609) AND (64655) Microalb/Creat Ratio 9.5 {mg/g_creat} (Normal) Range: 0.0-30.0 Creatinine, Urine 186.1 mg/dL (Normal) Range: 15.0-278.0 Microalbumin, Urine 17.7 ug/mL (Abnormal) Range: 0.0-17.0 :45 METABOLIC PANEL, COMPREHENSIVE Comments: PATIENT WAS FASTINGPERFORMED BY: ADI [facility]70 [facility] [id number] (11077) ALT (SGPT) 21 [iU]/L (Normal) Range: 0-40 [...] Glucose, Serum 98 mg/dL (Normal) Range: 65-99 34-Uis-543592:45 LIPID PANEL (26930) Comments: PATIENT WAS FASTINGPERFORMED BY: [employer]6370 [facility] [id number] LDL/HDL Ratio 1.6 {ratio_units} (Normal) Range: 0.0-3.2 [...] 100-199 Comments: Please note reference interval change 81-Zwl-852643:45 CBC WITH MANUAL DIFF Comments: PATIENT WAS FASTINGPERFORMED BY: [facility] Ruxqtx5681 [facility] [id number] Information: [id number] (37569) Immature Grans (Abs) 0.0 {x10E3/uL} (Normal) Range: [...] (Normal) Range: 4.0-10.5 :09 HgA1C , Office (33821) HgA1C , Office 6.0 % (Normal) Range: 4.6 - 7.1 :09 Blood Glucose , Office (83782) Blood Glucose , Office 79 (Normal) :33 Blood Glucose , Office (78284) Blood Glucose , Office 98 (Normal) :33 HgA1C , Office (98123) HgA1C , Office 6.0 % (Normal) Range: 4.6 - 7.1 :39 CBC & PLATELETS (AUTO) Comments: PATIENT WAS FASTINGPERFORMED BY: IntoloopVirtua MarltonUhbivr7017 [facility] [id number] ([id number]) Platelets 242 {x10E3/uL} (Normal) Range: 140-415 RDW 13.8 % (Normal) Range: 11.7-15.0 MCHC 33.2 g/dL (Normal) Range: 32.0-36.0 MCH 29.9 pg (Normal) Range: 27.0-34.0 Hematocrit 40.7 % (Normal) Range: 34.0-44.0 MCV 90 fL (Normal) Range: 80-98 Hemoglobin 13.5 g/dL (Normal) Range: 11.5-15.0 RBC 4.51 {x10E6/uL} (Normal) Range: 3.80-5.10 WBC 4.8 {x10E3/uL} (Normal) Range: 4.0-10.5 :39 METABOLIC PANEL, Comments: PATIENT WAS FASTINGPERFORMED BY: [facility]opV[facility] MarltonZbjqij3399 [facility] [id number] Information: [id number] COMPREHENSIVE ([id number]) ALT (SGPT) 20 [iU]/L (Normal) Range: 0-40 [...] Glucose, Serum 94 mg/dL (Normal) Range: 65-99 66-Pox-829601:39 TSH (THYROID STIMULATING Comments: PATIENT WAS FASTINGPERFORMED BY: 3TouchCoVirtua MarltonMkuhmp8355 [facility] [id number] HORMONE) ([id number]) TSH 2.830 {uIU/mL} (Normal) Range: 0.450-4.500 :39 MICROALBUMIN URINE QUANT Comments: PATIENT WAS FASTINGPERFORMED BY: [employer] LabCoVirt[facility] MarltonDqalir4231 [facility] [id number] ([id number]) Creatinine, Urine 107.7 mg/dL (Normal) Range: 15.0-278.0 Microalb/Creat Ratio 4.0 {mg/g_creat} (Normal) Range: 0.0-30.0 Microalbumin, Urine 4.3 ug/mL (Normal) Range: 0.0-17.0 :39 LIPID PANEL (35259) Comments: PATIENT WAS FASTINGPERFORMED BY: ADI [employer] Avxouz6628 [facility] [id number]; appt 06/25/11 LDL/HDL Ratio 1.9 {ratio_units} (Normal) Range: 0.0-3.2 LDL Cholesterol Calc 108 mg/dL (Abnormal) Range: 0-99 VLDL Cholesterol Aneesh 15 mg/dL (Normal) Range: 5-40 HDL Cholesterol 56 mg/dL (Normal) Comments: According to ATP-III Guidelines, HDL-C >59 mg/dL is considered anegative risk factor for CHD. Triglycerides 76 mg/dL (Normal) Range: 0-149 Cholesterol, Total 179 mg/dL (Normal) Range: 100-199 15-Jkf-621254:03 HEMOGLOBIN GLYCLATED (HGB Comments: PATIENT NOT FASTINGPERFORMED BY: [facility] Gysiby3076 [facility] [id number] Information: [id number] A1C) (38048) Hemoglobin A1c 6.0 % (Abnormal) Range: 4.8-5.6 Comments: Increased risk for diabetes: 5.7 - 6.4 Diabetes: >6.4 Glycemic control for adults with diabetes: <7.0 49-Ult-300325:42 Blood Glucose , Office (22250) Blood Glucose , Office 120 (Normal) Comments: patient reported. Showed me on her meter and declined to have done in office today. 47-Ucm-548561:32 Microscopic Examination Comments: PATIENT WAS FASTINGPERFORMED BY: [employer] Wofpbn8280 [facility] [id number] Bacteria Moderate (Abnormal) Mucus Threads Present (Normal) Epithelial Cells (non renal) 0-10 {/hpf} (Normal) Range: 0 - 10 RBC 0-3 {/hpf} (Normal) Range: 0 - 3 WBC 0-5 {/hpf} (Normal) Range: 0 - 5 95-Okz-465681:32 URINALYSIS, W/ MICRO (37370) Comments: PATIENT WAS FASTINGPERFORMED BY: [facility]anceVirtua MarltonKopujp3400 [facility] [id number] Microscopic Examination See below: (Normal) Bilirubin Negative (Normal) Microscopic Examination MICRON (Normal) Comments: Microscopic follows if indicated. Nitrite, Urine Negative (Normal) Urobilinogen,Semi-Qn 0.2 mg/dL (Normal) Range: 0.0-1.9 Glucose Negative (Normal) Ketones Negative (Normal) Occult Blood Negative (Normal) Appearance Clear (Normal) Protein Negative (Normal) WBC Esterase Negative (Normal) pH 7.0 (Normal) Range: 5.0-7.5 Urine-Color Yellow (Normal) Specific [place] 1.020 (Normal) Range: 1.005-1.030 44-Jdy-235265:32 METABOLIC PANEL, COMPREHENSIVE Comments: PATIENT WAS FASTINGPERFORMED BY: eNovanceVirtua MarltonPkavui2184 [facility] [id number] (88696) ALT (SGPT) 18 [iU]/L (Normal) Range: 0-40 [...] Glucose, Serum 90 mg/dL (Normal) Range: 65-99 14-Edl-898757:32 CBC WITH MANUAL DIFF Comments: PATIENT WAS FASTINGPERFORMED BY: LabCoVirtua MarltonSsrkqq1410 [facility] [id number] Information: [id number] (80362) Immature Grans (Abs) 0.0 {x10E3/uL} (Normal) Range: [...] 3.80-5.10 WBC 5.0 {x10E3/uL} (Normal) Range: 4.0-10.5 42-Byl-667394:32 TSH (73900) Comments: PATIENT WAS FASTINGPERFORMED BY: [address] [id number] TSH 3.890 {uIU/mL} (Normal) Range: 0.450-4.500 :32 MICROALBUMIN: CREATININE RATIO Comments: PATIENT WAS FASTINGPERFORMED BY: [address] [id number] (31261) AND (46075) Microalb/Creat Ratio 2.7 {mg/g_creat} (Normal) Range: 0.0-30.0 Microalbumin, Urine 3.2 ug/mL (Normal) Range: 0.0-17.0 Creatinine, Urine 117.9 mg/dL (Normal) Range: 15.0-278.0 :32 LIPID PANEL (49231) Comments: PATIENT WAS FASTINGPERFORMED BY: [place] 0259070 [facility] [id number] LDL/HDL Ratio 1.8 {ratio_units} (Normal) Range: 0.0-3.2 LDL Cholesterol Calc 115 mg/dL (Abnormal) Range: 0-99 VLDL Cholesterol Aneesh 16 mg/dL (Normal) Range: 5-40 HDL Cholesterol 64 mg/dL (Normal) Comments: According to ATP-III Guidelines, HDL-C >59 mg/dL is considered anegative risk factor for CHD. Triglycerides 79 mg/dL (Normal) Range: 0-149 Cholesterol, Total 195 mg/dL (Normal) Range: 100-199 20-Fua-689621:29 PELVIC (NON ) Radiology See Note Comments: [...] on 08/10/10 1410 Sign by: Lizzy Day 75-Nkl-34015:00 TRANSVAGINAL NON- Radiology See Note Comments: ADDENDUM [...] (ACTIVATED PARTIAL Comments: PATIENT NOT FASTINGPERFORMED BY: [place] 0259070 [facility] [id number] THROMBOPLASTIN TIME) (65583) aPTT 29 {sec} (Normal) Range: 24-33 Comments: This test has not been validated for monitoring unfractionated heparintherapy. aPTT-based therapeutic ranges for unfractionated heparintherapy have not been established. For general guidelines onHeparin monitoring, refer to the [facility] Directory of Services. 75-Pew-803224:44 PT (PROTHROMBIN TIME) (37480) Comments: PATIENT NOT FASTINGPERFORMED BY: [facility]6370 [facility] [id number] Prothrombin Time 10.5 {sec} (Normal) Range: 8.7-11.5 INR 1.0 (Normal) Range: 0.8-1.2 Comments: Reference interval is for non-anticoagulated patients. . Suggested INR therapeutic range for Vitamin K anta gonist therapy: Standard Dose (moderate intensity therapeutic range): 2.0 - 3.0 Higher intensity therapeutic range 2.5 - 3.5 :44 PROLACTIN (32452) Comments: PATIENT NOT FASTINGPERFORMED BY: [facility] Yjwgcr9322 [facility] [id number] Prolactin 14.9 ng/mL (Normal) Range: 4.8-23.3 :44 METABOLIC PANEL, Comments: PATIENT NOT FASTINGPERFORMED BY: [facility] Nmgcmz2999 [facility] [id number] Information: [id number] COMPREHENSIVE (22341) ALT (SGPT) 22 [iU]/L (Normal) Range: 0-40 [...] 88 mg/dL (Normal) Range: 65-99 :44 TSH (67216) Comments: PATIENT NOT FASTINGPERFORMED BY: [facility] [id number] TSH 2.410 {uIU/mL} (Normal) Range: 0.450-4.500 :44 CBC (AUTO) (89725) Comments: PATIENT NOT FASTINGPERFORMED BY: [facility] [id number] MCHC 33.6 g/dL (Normal) Range: 32.0-36.0 Platelets 295 {x10E3/uL} (Normal) Range: 140-415 RDW 14.0 % (Normal) Range: 11.7-15.0 Hematocrit 38.7 % (Normal) Range: 34.0-44.0 MCH 30.1 pg (Normal) Range: 27.0-34.0 MCV 90 fL (Normal) Range: 80-98 Hemoglobin 13.0 g/dL (Normal) Range: 11.5-15.0 RBC 4.32 {x10E6/uL} (Normal) Range: 3.80-5.10 WBC 7.7 {x10E3/uL} (Normal) Range: 4.0-10.5 :23 HgA1C , Office (14811) HgA1C , Office 6.1 % (Normal) Range: 4.6 - 7.1 :23 Blood Glucose , Office (67381) Blood Glucose , Office 100 (Normal) :18 CBC With Differential/Platelet Comments: PATIENT WAS FASTINGPERFORMED BY: [facility]6370 [facility] [id number] Immature Grans (Abs) 0.0 {x10E3/uL} (Normal) Range: [...] 3.80-5.10 WBC 6.1 {x10E3/uL} (Normal) Range: 4.0-10.5 58-Uzv-714224:18 Comp. Metabolic Panel (14) Comments: PATIENT WAS FASTINGPERFORMED BY: LabCoVirtua MarltonUqufsp1394 [facility] [id number] ALT (SGPT) 18 [iU]/L (Normal) Range: 0-40 [...] Glucose, Serum 99 mg/dL (Normal) Range: 65-99 84-Voz-071069:18 Lipid Panel With LDL/HDL Comments: PATIENT WAS FASTINGPERFORMED BY: [facility] [id number] Ratio HDL Cholesterol 53 mg/dL (Normal) Comments: [...] 2.770 {uIU/mL} Comments: PATIENT WAS FASTINGPERFORMED BY: [facility] [id number] :18 (Normal) Range: 0.450-4.500 :48 HgA1C , Office (72596) HgA1C , Office 6.2 % (Normal) Range: 4.6 - 7.1 :48 Blood Glucose , Office (94242) Blood Glucose , Office 97 (Normal) :46 CBC With Differential/Platelet Comments: PATIENT WAS FASTINGPERFORMED BY: LabCoRyan [place] 2248670 [facility] [id number] Baso (Absolute) 0.0 {x10E3/uL} (Normal) Range: 0.0-0.2 [...] Panel (14) Comments: PATIENT WAS FASTINGPERFORMED BY: [employer] Lorbll0457 [facility] [id number] A/G Ratio 1.5 (Normal) Range: 1.1-2.5 Albumin, [...] Serum 103 mg/dL (Abnormal) Range: 65-99 If -Portuguese >59 mL/min/1.73 Comments: Note: Persistent reduction for [...] With LDL/HDL Comments: PATIENT WAS FASTINGPERFORMED BY: [employer]6370 [facility] [id number] Ratio Cholesterol, Total 179 mg/dL (Normal) Range: [...] Cholesterol Aneesh 14 mg/dL (Normal) Range: 5-40 92-Rgf-95395:46 Thyroxine (T4) Free, Direct, S Comments: PATIENT WAS FASTINGPERFORMED BY: LabCoVirtua MarltonPxkfsj6431 [facility] [id number] T4,Free(Direct) 1.13 ng/dL Range: 0.61-1.76 (Normal) 30-Jul-2008 Triiodothyronine,Free,Seru 3.0 pg/mL (Normal) Comments: PATIENT WAS FASTINGPERFORMED BY: LabCoVirtua MarltonRowkxh9895 [facility] [id number] 9:46 m Range: 2.3-4.2 30-Jul-2008 TSH 2.949 {uIU/mL} Comments: PATIENT WAS FASTINGPERFORMED BY: LabCoVirtua MarltonJysqzt6208 [facility] [id number] 9:46 (Normal) Range: 0.450-4.500 65-Bhj-74017:43 Blood Glucose , Office (78789) Comments: done>Wf. Blood Glucose , Office 100 (Normal) 4-Zte-137246:30 GLUP 105 mg/dL (Normal) Comments: GLU,2HPPG 75gm GLUC PPG GLUP from 1208:G52816A. 0-Vtv-027349:24 ESR SED RATE 31 mm/h (Abnormal) Range: 0-30 2-Chx-514695:24 HGB A1C 6.7 % (Abnormal) Range: 4.0-6.3 Comments: The methodology of Hgb A1C has changed to [place] BehringDimension RXL. No significant changes in patientresults are expected. The reference range remains the same. 4-Ofu-976705:03 BREAST UNILATERAL US () Radiology Report See Note (Normal) Comments: Exam Number: [id number] TARGETED RIGHT BREAST ULTRASOUND HISTORYAbnormal mammogram. High [...] Report See Note (Normal) Comments: Exam Number: [id number] TARGETED RIGHT BREAST ULTRASOUND HISTORYAbnormal mammogram. High-resolution [...] werealso examined with computer-aide d detection software ([employer].). Reported By: PHYLLIS HEWITT M.D. 21-Jul-20088:36 [facility] DIGITAL & CAD Radiology Report See Note (Normal) Comments: Exam Number: [id number] MAMMOGRAM, BILATERAL SCREENING DIGITAL AND CAD HISTORYRoutine [...] patient reported a previous study performed at [facility]. That examination was too old and [...] mammograms werealso examined with computer-aided detection software ([employer], [employer] Reported By: PHYLLIS HEWITT M.D. 81-Pyw-79402:26 H pylori, IgM, IgG, IgA Ab Comments: PERFORMED BY: [facility]6370 [facility] [id number] H. pylori IgG, Abs <0.9 U/mL (Normal) [...] Diarrhea Unspecified osteoarthritis, unspecified site : Reviewed Dance Critic Letter Indication: Unspecified osteoarthritis, unspecified site Controlled [...] - Strool Based DNA Test, CRC SCREEN (14530)Indication: Screening for colon cancer On: 30-Wsg-525839:51 Request TSH (70124)Indication: Controlled diabetes mellitus type II without complication On: 6-For-335345:53 Request URINALYSIS, W/ MICRO (40689)Indication: Controlled diabetes mellitus type II without complication On: 2-Diw-196686:53 Request MICROALBUMIN: CREATININE RATIO (52514) AND (04393)Indication: Controlled diabetes mellitus type II without complication On: 6-Qar-490129:53 Request METABOLIC PANEL, COMPREHENSIVE (45034)Indication: Controlled diabetes mellitus type II without complication On: 9-Okp-996193:53 Request LIPOPROTEIN, BLD, BY NMR (39554)Indication: Controlled diabetes mellitus type II without complication On: 3-Lkl-879117:53 Request LIPID PANEL (28152)Indication: Controlled diabetes mellitus type II without complication On: 7-Uvu-141963:53 Request CBC W/AUTO DIFF WBC (68148)Indication: Controlled diabetes mellitus type II without complication On: 1-Fls-060815:52 Request HGB A1C (29155)Indication: Controlled diabetes mellitus type II without complication On: 22-Mar-20178:18 Request LIPID PANEL (30371)Indication: Hypercholesteremia On: 22-Mar-20178:17 Request HGB A1C (46482)Indication: Uncontrolled type II diabetes mellitus On: 31-Oct-2016 Request POTASSIUM SERUM (07795)Indication: High potassium On: 4-Rns-771714:06 Request HELICO PYLORI, STOOL, INFCT ANTIGEN (45703)Indication: NSAID long-term use On: 3-Sli-812542:05 Request TSH (06265)Indication: Uncontrolled type II diabetes mellitus On: 7-Mmy-858745:58 Request TSH (61363)Indication: Pain in unspecified joint On: 67-Nmz-414419:41 Request CBC WITH MANUAL DIFF (50676)Indication: Pain in unspecified joint On: 26-Qap-254222:41 Request METABOLIC PANEL, COMPREHENSIVE (93968)Indication: Pain in unspecified joint On: 66-Jez-840610:41 Request URINALYSIS, W/ MICRO (67961)Indication: Benign essential hypertension On: 98-Rta-798444:06 Request MICROALBUMIN: CREATININE RATIO (74652) AND (22315)Indication: Benign essential hypertension On: 11-Jnd-336138:06 Request URINE CED CULTURE-IDENTIFICATN (13222)Indication: Other abnormal finding of urine On: 33-Tup-481898:56 Request TSH (34550)Indication: Controlled diabetes mellitus type II without complication On: :41 Request URINALYSIS, W/ MICRO (99779)Indication: Benign essential hypertension On: 3-Rsx-774046:41 Request MICROALBUMIN: CREATININE RATIO (32238) AND (30742)Indication: Benign essential hypertension On: :41 Request METABOLIC PANEL, COMPREHENSIVE (43002)Indication: Benign essential hypertension On: :41 Request LIPID PANEL (47511)Indication: Benign essential hypertension On: :41 Request CBC WITH MANUAL DIFF (77264)Indication: Benign essential hypertension On: :41 Request TSH (63861)Indication: Uncontrolled type II diabetes mellitus On: :37 Request METABOLIC PANEL, COMPREHENSIVE (92848)Indication: Uncontrolled type II diabetes mellitus On: :36 Request MICROALBUMIN: CREATININE RATIO (52759) AND (79951)Indication: Uncontrolled type II diabetes mellitus On: :36 Request LIPID PANEL (54931)Indication: Uncontrolled type II diabetes mellitus On: :36 Request CBC WITH MANUAL DIFF (71620)Indication: Uncontrolled type II diabetes mellitus On: :36 Request H. PYLORI BLD TEST UREASE NON-RAD (33274)Indication: Epigastric pain On: 41-Fat-26637:09 Request Planned Encounters Medical; 3 Month FU - On: 21-Jul-2018 11:45 [facility] Nina Jiménez DO, DO, Kathleen Planned Procedures Bone Density StudyBy: Tino ALONSO, On: 03-Jul-2018 Intent Nina Stover DO MAMMOGRAM BREAST BILATERAL On: 03-Jul-2018 Intent SCREENING DIGITAL (47624)By: Nina Jiménez DO, DO, Kathleen CT SCAN OF ABDOMEN AND PELVIS WITH On: 26-Jul-2017 Intent CONTRAST (39708)By: Nina Jiménez DO, DO, Kathleen ELECTROCARDIOGRAM, COMPLETE (ECG) On: 26-Jul-2017 Intent (73347)By: Nina Jiménez DO Comments: nsr no acute chg Nina Jiménez DO MAMMOGRAM, SCREENING, BOTH BREAST On: 01-Nov-2016 Intent (79547)By: Nina Jiménez DO, DO, Kathleen Echo CompleteBy: Tino ALONSO, On: 18-May-2016 Intent Nina Stover DO Comments: dr mckee Holter Monitor 24 hrsBy: Tino On: 04-May-2016 Intent Nina ALONSO DO, Kathleen ELECTROCARDIOGRAM, COMPLETE (ECG) On: 04-May-2016 Intent (20268)By: Nina Jiménez DO Comments: ? a fib vs atrial tachycardia - df rev as well -- thought maybe some flutter trying to breakthru where we see P waves -- pt asx and hemodynamically stable Nina Jiménez DO MRI ANKLE LEFT WO CONTRAST On: 14-Nov-2015 Intent (79722)By: Nina Jiménez DO, DO, Kathleen Aerosol Treatment (42014)By: Slarb On: 08-Dec-2014 Intent Nette VASQUEZ EKG (58981)By: Tino ALONSO, On: 16-Aug-2014 Intent Nina Stover [...] 08-Jul-2013 Intent (G8553)By: Geovanna Nuñez LPN EKG (65156)By: Trisha Emery MD On: 03-Jul-2013 Intent Comments: see scanned document of test done to see results reviewed today with patient Eprescribed prescriptions On: 08-Apr-2013 Intent (G8553)By: Geovanna Nuñez LPN EKG (55456)By: Tino ALONSO, On: 18-Aug-2012 Intent Nina Stover DO Comments: nsr no acute chg Eprescribed prescriptions On: 18-Aug-2012 Intent (G8553)By: Lidya Stephenson LPN Eprescribed prescriptions On: 08-May-2012 Intent (G8553)By: Nina Jiménez DO, DO, Kathleen Eprescribed prescriptions On: 08-May-2012 Intent (G8553)By: Geovanna Nuñez LPN CT - Neck (IV Contrast Needed)By: On: 28-Oct-2011 Intent Nina Jiménez DO, DO, Comments: follow up original image done at [facility]-- ( mri cervical spine) Nina EKG (34377)By: Tino ALONSO, On: 25-Jul-2011 Intent Nina Stover DO Comments: NSR NO ACUTE CHG Ultrasound - PelvisBy: Tino ALONSO, On: 01-Dec-2010 Intent Nina Stover DO Ultrasound - PelvisBy: Tino ALONSO, On: 02-Aug-2010 Intent Nina Stover DO Comments: may do vaginal probe if need to EKG (55791)By: Tino ALONSO, On: 16-Feb-2010 Intent Nina Stover DO Comments: nsr no acute chnages FLU VAC, SPLIT, >3 YEARS, On: 29-Jul-2008 Intent INTRAMUSC (00477)By: Nina Jiménez DO DONina IMMUNIZ ADMNIN, 1 VAC, SNGL/COMBO On: 29-Jul-2008 Intent (11081)By: Nina Jiménez DO Comments: lot # [id number]- 02/15/0949iizq-JQDTgdlxy-OQwhob- 0.5ML chenderson tolerated well Tino DO, Nina IMMUNIZ ADMNIN, 1 VAC, SNGL/COMBO On: 29-Jul-2008 Intent (70296)By: Nina Jiménez DO Comments: lot # [id number]- 12/27/20196798gevv-LGCPndwpd-GUropg- O.5ML chenderson tolerated well Tino DO, Nina PNEUM VAC ADLT/IMUMNOSPR, On: 29-Jul-2008 Intent SBC/INTRM (95710)By: Nina Jiménez DO, DO, Kathleen EKG (70020)By: Tino , On: 29-Jul-2008 Intent Nina Stover DO MAMMOGRAM, SCREENING, BOTH BREASTS On: 04-Jun-2008 Intent (92368)By: Jojo Santoyo Instructions Name Dates Details Physical [...] Pain,Unspecified Site (789.00) [facility]; dia guarantor
--- OUTSIDE RECORDS SUMMARY | 2018-09-13 21:13 | XMS RPT_ITS | Continuity of Care Document ---
:1955 Author Organization [facility] Address [facility] [address] Phone Care Team Providers Name Role Phone [...] days Quantity: 60 {Tablet} Refills: 3 Ordered:12-Oct-2015 Geovanan Nuñez LPN Start : 09-Jul-2014 End : [...] : 08-Jun-2008 Discontinued Comments:This order discontinued per [facility]. PENLAC, 8% (External Solution) apply Solution [...] VAC ADLT/IMUMNOSPR, Date: 14-Nov-2015 Completed 14-Nov-2015 SBC/INTRM (17886) Comments: Lot:[id number]:04/05/17Dose:0.5mgRoute:imSite:david Boo By:WILLI signed Cardioversion Completed Comments: 2015 Colonoscopy Completed Comments: 07-27-08 - Diverticulitis Diverticulitis (562.11) Completed Comments: Colonoscopy 07-27-08 lt finger sx Completed Comments: 03/01 Date Value Details 22-Apr-2018 12 Lead Electrocardiogram Result: Comments: See Note; NOTES: [facility] Cardiovascular Services [address] [place] [address] 12 Lead EKG 04/19/18 1456 MR#: [id number] Acct: [id number] Name: NINA AYON ep #: [id number] : 1955 62 From: Bright Peng MD [...] Borderline ECG Confirmed by BRIGHT PENG ([id number]), metropolitan editor OBDULIO PURDY ([id number]) on 04/22/2018 1:27:45 PM Referred By: JOHN Confirmed By: BRIGHT PENG 04/22/18 1327 Date Bright Peng MD CC: Nina Jiménez DO; Cedric Sylvester MD Signed 19-Apr-2018 Emergency Department Summary Result: Comments: See Note; NOTES: [facility] Medical Records Department [address] [place] [address] Emergency Department Summary 04/19/18 1653 MR#: [id number] Acct: [id number] Name: NINA AYON Rep #: [id number] : 1955 62 From: Cedric Sylvester MD [...] pleuritic component This note was generated with [employer] dictation software. It may contain incorrect words, [...] your Primary Care Provider. Call [facility] ([phone]) or report to the closest Emergency Room. Call 911 if necessary. 04/19/18 1701 <Electronically signed by Cedric Sylvester MD> Date Cedric Sylvester MD Cosig ner Signature (If Indicated): Date CC: Nina Jiménez DO 19-Apr-2018 Chest 1 View (Portable) Result: Comments: See Note; NOTES: [facility] Imaging Services [address] [place] [address] Chest 1 View (Portable) MR#: [id number] Acct: [id number] Name: NINA AYON Rep #: [id number] : 1955 F 62 From: Dolly Hardy MD PCP: Nina Jiménez DO Status: PRE ER Study: Chest 1 View (Portable) Date of Exam: 04/19/18 Exam# [id number] Ordering Dr: Cedric Sylvester MD STUDY: X-RAY [...] CC: Nina Jiménez DO; Cedric Sylvester MD Pit Worker Power Shovel: Signed 10-Feb-2018 Cardiology Visit Report Result: Comments: See Note; NOTES: [facility] [address] [place] [address] OFFICE VISIT Date of Service: 02/10/18 MR#: [id number] Acct: [id number] Name: NINA AYON Rep #: [id number] : 1955 Provider: KATHY Snider Age/Sex: 62/F Location: [facility] Status: Signed HPI HPI Details: [...] insufficiency (Chronic) Paroxysmal atr ial fibrillation (Acute) MCC (current) use of anticoagulants (Chronic) GERD (gastroesophageal [...] underwent a transthoracic echocardiogram on 11/07/2016 at [facility]. The results are as noted below. Interpretation [...] THIS IS A24 HOUR HOLTER MONITOR IN [facility]. MINIMUM HEART RATE WAS 92 BPM AT [...] We will continue to monitor this. 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 Anxiety F41.9 02/10/18 1506 <Electronically signed by Dusty MORALES& #62; Date Dusty MORALES Cosigner Signature: Date (if applicable) CC: Nina Jiménez DO 10-Feb-2018 Chest PA and Lateral Result: Comments: See Note; NOTES: [facility] Imaging Services [address] [place] [address] Chest PA and Lateral MR#: [id number] Acct: [id number] Name: GABOJINNINA B Rep #: [id number] : 1955 F 62 From: Leslye Sue MD PCP: Nina Jiménez DO Status: REG CLI Study: Chest PA and Lateral Date of Exam: 02/10/18 Exam# [id number] Ordering Dr: Haile Mckee MD STUDY: X-RA [...] IMPRESSION: No acute cardiopulmonary process. Electronically Signed: Lelsye Sue MD at 17:31 EDT Tel , Service support , CC: Nina Jiménez DO; Haile Mckee MD [employer] Worker Power Shovel: Signed 04-Feb-2018 Stress Report Result: Comments: See Note; NOTES: [facility] Cardiovascular Services [address] [place] [address] MR#: [id number] Acct: [id number] Name: GABONINA B Rep #: [id number] : 62 From: Haile Mckee MD Primary [...] and occasional PVCs during recovery. The functional [facility] was considered average. There was [...] %. Thi s note was generated with [employer] software. It may contain incorrect words, spelling, and punctuation that were not noted in checking the note before signing. 02/04/18 5326 <Randy person signed by Haile Mckee MD> Date Haile Mckee MD CC: Nina Jiménez DO; Haile Mckee MD Date Dictated: 02/04/18 1354 Date Transcribed: 02/04/181353 [employer]er [employer] Shovel: PM Signed 09-Jan-2018 Cardiology Visit Report Result: Comments: See Note; NOTES: [facility] 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 The results are as noted below. Interpretation [...] management and follow- up. 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.01 Coding Level [...] DO 09-Jan-2018 12 Lead EKG performed by [facility] Result: Comments: See Note; NOTES: [facility] [address] [place] [address] 12 Lead EKG performed by [facility] 01/09/185 MR#: [id number] Acct: [id number] Name: NINA AYON Rep #: [id number] : 1955 62 From: Haile Mkcee MD Attending Dr: Haile Mckee MD Status: DEP [facility] Ordering Dr: Haile Mckee MD Date: 01/09/18 Location: [facility] Sex: F C Admitted : BMS/12 Lead EKG performed by [facility] ECG Report Interpretation Sinus Rhythm - occasional ectopic ventricular beat Electronically signed on 01/09/2018 at 12:2 4 by Haile Mckee 01/09/181226 Date Haile Mckee MD CC: Nian Jiménez DO Date Dictated: 01/09/181024 Date Transcribed: 01/09/181024 [employer]vel: PM Signed 09-Aug-2017 Abdomen/Pelvis WITH Contrast Result: Comments: See Note; NOTES: [facility] Imaging Services [address] [place] [address] Abdomen/Pelvis WITH Contrast MR#: [id number] Acct: [id number] Name: NINA AYON Rep # : [id number] : 1955 F 62 From: Ganga Argueta PCP: Nina Jiménez DO Status: REG CLI Study: Abdomen/Pelvis WITH Contrast Date of Exam: 08/09/17 Exam# [id number] Ordering Dr: Nina Jiménez DO STUDY: CT [...] of the lumbar spine. ORDE R #: [id number] CT/Abdomen/Pelvis WITH Contrast IMPRESSION: No acute findings in the abdomen or pelvis. Normal appendix. No hydronephrosis or urinary tract stones. No evidence of bowel obstruction. M ild sigmoid colon diverticulosis. Moderate size hiatal hernia. Electronically Signed: Ganga Argueta MD at 8:11 EST , Service support , CC: Nina Jiménez DO [employer] Work[employer] Shovel: Signed 07-Nov-2016 Echocardiogram Complete Result: Comments: See Note; NOTES: [facility] Cardiovascular Services [address] [place] [address] Echo Complete 11/07/16 1027 MR#: [id number] Acct: [id number] Name: NINA AYON Rep #: [id number] : 1955 61 From: Haile Mckee MD Attending Dr: Sanam Coronel NP Status: REG CLI Ordering Dr: Sanam Coronel E PUSH CONNECTOR ASSEMBLER-C Date: 11/07/16 Location: [facility] Sex: F C [...] Date Haile Mckee MD CC: Sanam Coronel PUSH CONNECTOR ASSEMBLER; Nina Jiménez DO Date Dictated: 11/07/16 1027 Date Transcribed: 11/07/161733 [employer] Shovel: Signed 02-Nov-2016 SCREENING MAMM (CAD), BILAT Result: Comments: See Note; NOTES: [facility] Imaging Services [address] [facility] [facility] [place] [address] Verdana 4d SCREENING MAMM (CAD), BILAT MR#: [id number] Acct: [id number] Name: DARÍO AYON Rep #: [id number] : 1955 F 61 From: Jaya Mac MD PCP: Nina Jiménez DO Status: REG I Study: SCREENING MAMM (CAD), BILAT Date of Exam: 11/02/16 Exam# [id number] Ordering Dr: iNna Kingsley DO MAMMOGRAPHY - BILATERAL SCREENING REASON [...] will be sent to the patient by [facility] facility within 30 days. Approximately 10% of breast cancers are not detected by mammography. A normal mammogram should not delay biopsy of a clinically suspicious abnormality. [id number] Electronicall y Signed: Jaya Mac MD at 8:27 EDT Tel [phone], Service support [phone], CC: Nina Jiménez DO Pit Worker Power Shovel: Signed 04-Jul-2016 Operative Report Result: Comments: See Note; NOTES: [facility] Medical Records Department [address] [place] [address] Operative Report MR#: [id number] Acct: [id number] Name: NINA AYON Rep #: [id number] : 1955 61 From: Juan Covington MD PCP: Nina Jiménez DO Status: [facility] DATE OF SERVICE: 07/03/2016 DATE OF SERVICE: [...] MD Primary Care Physician T: NTS JOB: [id number] 07/04/16 0615 <Electronically signed by Juan Covington MD> Date Juan Covington MD Cosigner Signature (If Indicated): Date CC: Juan Covington MD; Nina Jiménez DO; Haile Mckee MD Date Dictated: 07/03/16 1104 Date Transcribed: 07/03/161103 [employer] Worker Power Shovel: Signed 03-Jul-2016 Operative Report Result: Comments: See Note; NOTES: [facility] Medical Records Department [address] [place] [address] Operative Report 07/03/16 1642 MR#: [id number] Acct: [id number] Name: DARÍO AYON Rep #: [id number] : 1955 61 From: Haile Mckee MD PCP: Nina Jiménez DO Status: [facility] Y Location: [facility] Problem List (1) Atrial [...] complica tions This note was generated with [employer] dictation software. It may contain incorrect words, spelling, and punctuation that were not noted in checking the note before signing. 07/03/16 1644 &#6 0;Electronically signed by Haile Mckee MD> Date Haile Mckee MD CC: Nina Jiménez DO; Haile Mckee MD Signed 03-Jul-2016 Echo Transesophageal (KATHY) Result: Comments: See Note; NOTES: [facility] Cardiovascular Services [address] [place] [address] Echo Transesophageal (KATHY) 07/03/16 0947 MR#: [id number] Acct: [id number] Name: TESSA AYALANINA B Rep #: [id number] : 1955 61 From: Haile Mckee MD Attending Dr: Haile Mckee MD Status: [facility] Ordering Dr: Haile Mckee MD Date: 07/03/16 Location: [facility] Sex: F C Admitted: Reason For Study: AFIB Medication KATHY probe passed with minimal difficulty. Cetacaine Topical Bryant given X3 orally. Versed 2 mg given [...] Dictated: 07/03/16 0947 Date Transcribed: 07/03/16 1436 Pit Worker Power Shovel: Signed 28-Jun-2016 Chest PA and Lateral Result: Comments: See Note; NOTES: [facility] Imaging Services [address] [place] [address] Verdana 4d Chest PA and Lateral MR#: [id number] Acct: [id number] Name: NINA AYON #: [id number] : 1955 F 61 From: Johnathon Meza PCP: Nina Jiménez DO Status[place] [facility] Study: Chest PA and Lateral Date of Exam: 06/28/16 Exam# [id number] Ordering Dr: Haile Mckee MD STUDY: X-RAY [...] at 6:38 EST Tel , Service support [phone], CC: Nina Jiménez DO; Haile Mckee MD Pit Worker Power Shovel: Signed 19-Jun-2016 Nuclear Stress Test - Chemical Result: Comments: See Note; NOTES: [facility] Imaging Services [address] [place] [address] Candie 4d Nuclear Stress Test - Chemical MR#: [id number] Acct: [id number] Name: Ashlee AYON Rep #: [id number] : 1955 61 From: Haile Mckee MD [...] 60%. Haile Mckee MD T: NTS JOB: [id number] 06/19/161936 <Electronically signed by Haile Mckee MD> Date Haile Mckee MD CC: Nina Diop on DO; Haile Mckee MD Date Dictated: 06/19/161406 Date Transcribed: 06/19/161406 Pit Worker Power Shovel: Signed 08-Jun-2016 Echocardiogram Complete Result: Comments: See Note; NOTES: [facility] Cardiovascular Services [address] [facility] [place] [address] Echo Complete 06/08/16 1319 MR#: [id number] Acct: [id number] Name: NINA AYON Rep #: [id number] : 1955 61 From: Haile Mckee MD Attending Dr: Nina Jiménez DO Status: REG CLI Ordering Dr: Nina Jiménez DO Date: 06/08/16 Location: [facility] Sex: F C Admitted: Reas [...] Date Dictated: 06/08/16 1319 Date Transcribed: 06/08/161731 Pit Worker Power Shovel: Signed 06-Jul-2014 Hepatobilliary Imaging Result: Comments: See Note; NOTES: [facility] Imaging Services [address] [place] [address] Nuclear Medicine Report MR#: [id number] Acct: [id number] Name: NINA AYON Rep #: [id number] : 1955 F 59 From: Steven Cunha DO PCP: Nina Jiménez DO Status: REG CLI Study: Hepatobilliary Imaging Date of Exam: 07/06/14 Exam# [id number] Ordering Dr: Kacey Patton CL INICAL: 59-year-old [...] Cunha DO at 8:3 5 EST Tel [phone], Service support [phone], CC: Kacey Jiménez DO Pit Worker Power Shovel: Signed 02-Jul-2014 Small Bowel Series Only Result: Comments: See Note; NOTES: [facility] Imaging Services [address] [place] [address] Radiology Report MR#: [id number] Acct: [id number] Name: NINA AYON Rep #: [id number] : 1955 F 59 From: Jaya Mac MD PCP: Nina Jiménez DO Status: REG CLI Study: Small Bowel Series Only Date of Exam: 07/02/14 Exam# [id number] Ordering Dr: Kacey Patton CEDURE: SMALL BOWEL [...] Mac MD 11/27/13 at 11:02 EST Tel [phone], Service support [phone], RAD/Small Bowel Series Only IMPRESSION: Normal small bowel series. Electronically Signed: Jaya Mac MD at 11:02 EST Tel [phone], Service support [phone], CC: Kacey Patton; Nina Jiménez DO Pit Worker Power Shovel: Signed 23-Jun-2014 Gallbladder Result: Comments: See Note; NOTES: [facility] Imaging Services [address] [place] [address] Ultrasound Report MR#: [id number] Acct: [id number] Name: NINA AYON Rep #: [id number] : 1955 F 59 From: Jaya Mac MD PCP: Nina Jiménez DO Status: REG CLI Study: Gallbladder Date of Exam: 06/23/14 Exam# [id number] Ordering Dr: Kacey Patton STUDY: ABDOMIN AL [...] Jaya Mac MD at 11:48 EST Tel [phone], Service support [phone], CC: Kacey Patton; Nina Jiménez DO Pit Worker Power Shovel: Signed Immunization Name Dates Details Influenza (3 years and up) on: 29-Jul-2008 Pneumococcal (2 years and up) on: 14-Nov-2015 Comments: Site: Deltoid (Left) Lot #: [id number] Pneumococcal (2 years and up) on: 29-Jul-2008 Social History Name Dates Details Tobacco use: Never smoker. Status: Active Smoking Status Name Dates Details Never smoker Vital Signs Date Test Result Details 68-Upd-874211:41 Temperature 97.9 f Comments: Method: Temporal Pulse [...] kg/m2 Body Surface Area Calculated 2.19 m2 5-Eup-400388:32 Temperature 97.6 f Comments: Method: Temporal Pulse [...] kg/m2 Body Surface Area Calculated 2.22 m2 74-Xrn-078852:57 Pulse 68 /min Comments: Pattern: Regular Respiration [...] Date Description Value Details :39 Lipase Comments: [facility] [address] [place], [place], [address] LIPASE 127 U/L (Normal) Range: 73-393 3-Bsm-433405:39 Liver Profile Comments: [facility] [address] [place], [place], [address] D BILI 0.07 mg/dL (Normal) Range: 0.00-0.30 T BILI 0.30 mg/dL (Normal) Range: 0.20-1.00 ALT 37 U/L (Normal) Range: 13-56 ALK P 88 U/L (Normal) Range: 45-117 AST 30 U/L (Normal) Range: 15-37 GLOB 3.6 g/dL (Normal) Range: 2.2-4.2 ALB 3.9 g/dL (Normal) Range: 3.2-5.0 T PROT 7.5 g/dL (Normal) Range: 6.4-8.2 :10 Basic Metabolic Profile (BMP) Comments: [facility] [address] [facility] [place], [place], [address] GAP 9 (Normal) Range: 5-15 CO2 26.0 [...] A.D.A. criteria.Please note revised GLUCOSE reference range dxiiagllg98/02/2018. 0-Tof-033998:10 CBC W/Diff, Automated Comments: [facility] [address] [place], [place], [address] Absolute Lymph 1.31 {X10_3/ul} (Normal) Range: 0.83-4.51 [...] Range: 4.4-11.0 :10 Prothrombin Time w/INR Comments: [facility] [address] [place], [place], [address] INR 1.5 (Normal) PROTIME 17.9 s (Abnormal) Range: 11.7-14.9 7-Fun-456518:10 Troponin-I Comments: [facility] [address], [address] TROPONIN-I < 0.015 ng/mL (Normal) Comments: TROPONIN-I EXPECTED VALUES <0.045 Negative 0.045 - 0.590 Consistent with Cardiac Damage > OR = 0.600 Critical Value Not every elevated troponin is indicative of [place]. T hesevalues should be used with clinical judgement in examiningthe patient's clinical picture for diagnosis. To establisha diagnosis of [place] versus myocardial injury, there must be ademonstrated rise and/ or fall in the troponin values, inaddition to ischemic symptoms, EKG changes, new regionalwall motion abnormality, and/or angiographical evidence. PLEASE NOTE: REFERENCE RANGES EDITED 12/30/1710-Feb-201860-Plk-998696:44 Basic Metabolic Profile (BMP) Comments: [facility] [address] [place], [place], [address] GAP 8 (Normal) Range: 5-15 CO2 28.0 [...] A.D.A. criteria.Please note revised GLUCOSE reference range xpbdmjdli40/02/2018. 42-Lil-964865:44 CBC-Complete Blood Cnt No Diff Comments: [facility] [address] [place], [place], [address]) MPV 11.4 fL (Normal) Range: 6.2-12.0 PLT [...] 4.2-5.4 WBC 6.2 K/mm3 (Normal) Range: 4.4-11.0 58-Lbe-351388:44 Partial Thromboplast Time Comments: [facility] [address] [place], [place], [address] PTT 37.7 s (Abnormal) Range: 24.1-36.2 :44 Prothrombin Time w/INR Comments: [facility] [address] [place], [place], [address] INR 1.8 (Normal) PROTIME 21.0 s (Abnormal) Range: 11.7-14.9 3-Kxj-288910:37 Urinalysis, Office (47737) UA - LEUKOCYTE ESTERASE Moderate (Normal) UA - NITRITE Negative (Normal) URINE UROBILINGN RUBEN TIMED 2 mg/dL (Normal) UA - PROTEIN Negative mg/dL (Normal) UA - PH 7.0 (Normal) UA - BLOOD Hemolyzed Trace (Normal) UA - SPECIFIC GRAVITY 1.010 (Normal) UA - KETONES Negative mg/dL (Normal) UA - BILIRUBIN Negative (Normal) UA - GLUCOSE Negative (Normal) 2-Gbk-686762:33 Blood Glucose , Office (83643) Blood Glucose , Office 131 (Normal) 3-Qlf-796694:33 HgA1C , Office (82792) HgA1C , Office 5.9 % (Normal) Range: 4.6 - 7.1 :22 H-Pylori IGA,IGG,IGM (90168) Comments: PATIENT NOT FASTINGPERFORMED BY: ADI [facility] HospitalKpilby8013 [facility] [id number] H pylori, IgM Abs <9.0 {units} (Normal) Range: 0.0-8.9 Comments: Negative <9.0 Equivocal 9.0 - 11.0 Positive >11.0 .This test was developed and its performance characteristicsdetermined by [facility]. It has not been cleared or approvedby the Food and Drug Administration. H. pylori, IgA Abs <9.0 {units} (Normal) Range: 0.0-8.9 Comments: Negative <9.0 Equivocal 9.0 - 11.0 Positive >11.0 H. pylori, IgG Abs <0.9 U/mL (Normal) Range: 0.0-0.8 Comments: Negative <0.9 Indeterminate 0.9 - 1.0 Positive >1.0 Effective August the reference interval will be changing to: Negative <0.8 Equivocal 0.8 Positive >0.8 0-Esb-797857:19 Microscopic Examination Comments: PATIENT WAS FASTINGPERFORMED BY: ADI [facility] HospitalPywdxa2851 [facility] [id number] Bacteria Few (Normal) Mucus Threads Present (Normal) Epithelial Cells (non renal) >10 {/hpf} (Abnormal) Range: 0 - 10 RBC 3-10 {/hpf} (Abnormal) Range: 0 - 2 WBC >30 {/hpf} (Abnormal) Range: 0 - 5 1-Yhl-845504:21 Basic Metabolic Profile (BMP) Comments: Order Date: 05/08/17Order Info: 0667-1 - *BMPComments: Reason:[facility] [address] [place], [place], [address] GAP 5 (Normal) Range: 5-15 CO2 31.0 [...] 7-18 GLU 93 mg/dL (Normal) Range: 70-110 86-Cwy-161957:34 HGB A1C (48471) Comments: PATIENT WAS FASTINGPERFORMED BY: ADI [facility]6370 [facility] [id number] Hemoglobin A1c 6.5 % (Abnormal) Range: 4.8-5.6 Comments: . Pre-diabetes: 5.7 - 6.4 Diabetes: >6.4 Glycemic control for adults with diabetes: <7.0 :34 MICROALBUMIN: CREATININE RATIO Comments: PATIENT WAS FASTINGPERFORMED BY: [facility]failC[facility] HospitalRkzlst8975 [facility] [id number] (01063) AND (10045) Microalb/Creat Ratio <13.7 {mg/g_creat} (Normal) Range: 0.0-30.0 Microalbumin, Urine <3.0 ug/mL (Normal) Creatinine, Urine 21.9 mg/dL (Normal) :34 TSH (68789) Comments: PATIENT WAS FASTINGPERFORMED BY: [facility] HospitalTejnwx0908 [facility] [id number] TSH 2.420 {uIU/mL} (Normal) Range: 0.450-4.500 :34 Lipid Panel (41038) Comments: PATIENT WAS FASTINGPERFORMED BY: [facility]failC[facility] HospitalXlwgjl2585 [facility] [id number] LDL/HDL Ratio 1.9 {ratio_units} (Normal) Range: 0.0-3.2 Comments: LDL/HDL Ratio Men Women 1/2 Avg.Risk 1.0 1.5 Av g.Risk 3.6 3.2 2X Avg.Risk 6.2 5.0 3X Avg.Risk 8.0 6.1 LDL Cholesterol Calc 132 mg/dL (Abnormal) Range: 0-99 VLDL Cholesterol Aneesh 15 mg/dL (Normal) Range: 5-40 HDL Cholesterol 71 mg/dL (Normal) Triglycerides 73 mg/dL (Normal) Range: 0-149 Cholesterol, Total 218 mg/dL (Abnormal) Range: 100-199 04-Gmq-147622:34 Metabolic Panel, Comprehensive Comments: PATIENT WAS FASTINGPERFORMED BY: [facility] HospitalRlcbut6810 [facility] [id number] (93815) ALT (SGPT) 27 [iU]/L (Normal) Range: 0-32 [...] Glucose, Serum 96 mg/dL (Normal) Range: 65-99 87-Qgz-061983:34 CBC WITH MANUAL DIFF (13759) Comments: PATIENT WAS FASTINGPERFORMED BY: [facility] HospitalMchmjg4727 [facility] [id number] Immature Grans (Abs) 0.0 {x10E3/uL} (Normal) Range: [...] 7.4 {x10E3/uL} (Normal) Range: 3.4-10.8 :19 TSH (19355) Comments: PATIENT WAS FASTINGPERFORMED BY: [facility] [id number] TSH 2.050 {uIU/mL} (Normal) Range: 0.450-4.500 :19 URINALYSIS, W/ MICRO (46881) Comments: PATIENT WAS FASTINGPERFORMED BY: [facility] [id number] Microscopic Examination See below: (Normal) Comments: Microscopic was indicated and was performed. Nitrite, Urine Negative (Normal) Urobilinogen,Semi-Qn 0.2 mg/dL (Normal) Range: 0.2-1.0 Bilirubin Negative (Normal) Occult Blood 1+ (Abnormal) Ketones Negative (Normal) Glucose Negative (Normal) Protein Negative (Normal) WBC Esterase 3+ (Abnormal) Appearance Cloudy (Abnormal) Urine-Color Yellow (Normal) pH 7.0 (Normal) Range: 5.0-7.5 Specific [place] 1.015 (Normal) Range: 1.005-1.030 :19 MICROALBUMIN: CREATININE RATIO Comments: PATIENT WAS FASTINGPERFORMED BY: [facility] [id number] ([id number]) AND (03899) Microalb/Creat Ratio 9.1 {mg/g_creat} (Normal) Range: 0.0-30.0 Microalbumin, Urine 7.4 ug/mL (Normal) Creatinine, Urine 81.3 mg/dL (Normal) :19 METABOLIC PANEL, COMPREHENSIVE Comments: PATIENT WAS FASTINGPERFORMED BY: Neverfail Lcncyy5150 [facility] [id number] (25317) ALT (SGPT) 43 [iU]/L (Abnormal) Range: 0-32 [...] Glucose, Serum 104 mg/dL (Abnormal) Range: 65-99 2-Sws-433487:19 LIPID PANEL (47050) Comments: PATIENT WAS FASTINGPERFORMED BY: Joberator6370 [facility] [id number] LDL/HDL Ratio 2.7 {ratio_units} (Normal) Range: 0.0-3.2 Comments: LDL/HDL Ratio Men Women 1/2 Avg.Risk 1.0 1.5 Av g.Risk 3.6 3.2 2X Avg.Risk 6.2 5.0 3X Avg.Risk 8.0 6.1 LDL Cholesterol Calc 145 mg/dL (Abnormal) Range: 0-99 VLDL Cholesterol Aneesh 18 mg/dL (Normal) Range: 5-40 HDL Cholesterol 53 mg/dL (Normal) Triglycerides 89 mg/dL (Normal) Range: 0-149 Cholesterol, Total 216 mg/dL (Abnormal) Range: 100-199 9-Drp-072205:19 CBC W/AUTO DIFF WBC (28745) Comments: PATIENT WAS FASTINGPERFORMED BY: LabCoWeisman Children's Rehabilitation HospitalMxuvwt4943 [facility] [id number] Immature Grans (Abs) 0.0 {x10E3/uL} (Normal) Range: [...] {x10E3/uL} (Normal) Range: 3.4-10.8 :19 HGB A1C (97645) Comments: PATIENT WAS FASTINGPERFORMED BY: LabCoWeisman [facility]'s Rehabilitation HospitalCwopfy2261 [facility] [id number] Hemoglobin A1c 6.2 % (Abnormal) Range: 4.8-5.6 Comments: . Pre-diabetes: 5.7 - 6.4 Diabetes: >6.4 Glycemic control for adults with diabetes: <7.0 :19 HGB A1C (06493) Comments: PATIENT NOT FASTINGPERFORMED BY: LabCoWeisman Children's Rehabilitation HospitalCsfgwx4092 [facility] [id number] Hemoglobin A1c 6.2 % (Abnormal) Range: 4.8-5.6 Comments: . Pre-diabetes: 5.7 - 6.4 Diabetes: >6.4 Glycemic control for adults with diabetes: <7.0 :33 Basic Metabolic Profile (BMP) Comments: Order Date: 06/21/16Order Info: [id number] - *BMPOrder Date: 06/21/16Order Info: [id number] - *BMPComments: Reason:[facility] Cyrpxzyjug[address] [place], [address] GAP 8 (Normal) Range: 5-15 CO2 27.0 [...] Microscopic Examination Comments: PATIENT NOT FASTINGPERFORMED BY: [employer] KlickThru [facility] [id number] Bacteria None seen (Normal) Mucus Threads Present (Normal) Epithelial Cells (non renal) 0-10 {/hpf} (Normal) Range: 0 - 10 RBC 0-2 {/hpf} (Normal) Range: 0 - 2 WBC 0-5 {/hpf} (Normal) Range: 0 - 5 :37 URINALYSIS, W/ MICRO (76849) Comments: PATIENT NOT FASTINGPERFORMED BY: [employer] [facility] [id number] Microscopic Examination See below: (Normal) Comments: Microscopic was indicated and was performed. Nitrite, Urine Negative (Normal) Urobilinogen,Semi-Qn 0.2 mg/dL (Normal) Range: 0.2-1.0 Bilirubin Negative (Normal) Occult Blood Negative (Normal) Ketones Negative (Normal) Glucose Negative (Normal) Protein Negative (Normal) WBC Esterase 2+ (Abnormal) Appearance Clear (Normal) Urine-Color Yellow (Normal) pH 8.0 (Abnormal) Range: 5.0-7.5 Specific [place] 1.011 (Normal) Range: 1.005-1.030 :37 TSH (90914) Comments: PATIENT NOT FASTINGPERFORMED BY: Neverfail Snagsv9473 [facility] [id number] TSH 2.050 {uIU/mL} (Normal) Range: 0.450-4.500 :37 METABOLIC PANEL, COMPREHENSIVE Comments: PATIENT NOT FASTINGPERFORMED BY: [employer] Kmtcsc1630 [facility] [id number] (63313) ALT (SGPT) 31 [iU]/L (Normal) Range: 0-32 [...] Glucose, Serum 96 mg/dL (Normal) Range: 65-99 51-Cpm-821929:37 CBC W/AUTO DIFF WBC (79508) Comments: PATIENT NOT FASTINGPERFORMED BY: LabCoWe[facility] Rehabilitation HospitalEjlqpo6307 [facility] [id number] Immature Grans (Abs) 0.0 {x10E3/uL} (Normal) Range: [...] (Normal) Range: 3.4-10.8 :08 HgA1C , Office (94257) HgA1C , Office 5.9 % (Normal) Range: 4.6 - 7.1 :49 HGB A1C (81446) Comments: PATIENT WAS FASTINGPERFORMED BY: NeverfailWeisman Children's Rehabilitation HospitalWprlhl5583 [facility] [id number] Hemoglobin A1c 6.1 % (Abnormal) Range: 4.8-5.6 Comments: . Pre-diabetes: 5.7 - 6.4 Diabetes: >6.4 Glycemic control for adults with diabetes: <7.0 :49 TSH (03470) Comments: PATIENT WAS FASTINGPERFORMED BY: NeverfailWeisman Children's Rehabilitation HospitalEdzucq2991 [facility] [id number] TSH 2.280 {uIU/mL} (Normal) Range: 0.450-4.500 :49 MICROALBUMIN: CREATININE RATIO Comments: PATIENT WAS FASTINGPERFORMED BY: NeverfailWeisman Children's Rehabilitation HospitalFagywu3913 [facility] [id number] (24442) AND (47122) Microalb/Creat Ratio <3.5 {mg/g_creat} (Normal) Range: 0.0-30.0 Microalbumin, Urine <3.0 ug/mL (Normal) Creatinine, Urine 85.4 mg/dL (Normal) 1-Qxc-054995:49 METABOLIC PANEL, COMPREHENSIVE Comments: PATIENT WAS FASTINGPERFORMED BY: LabCoWe[facility] Rehabilitation HospitalFpicpa9887 [facility] [id number] (82445) ALT (SGPT) 19 [iU]/L (Normal) Range: 0-32 [...] Glucose, Serum 101 mg/dL (Abnormal) Range: 65-99 9-Dmr-791852:49 LIPID PANEL (60948) Comments: PATIENT WAS FASTINGPERFORMED BY: NeverfailWeisman Children's Rehabilitation HospitalIwjrol9412 [facility] [id number] LDL/HDL Ratio 2.3 {ratio_units} (Normal) Range: 0.0-3.2 Comments: LDL/HDL Ratio Men Women 1/2 Avg.Risk 1.0 1.5 Av g.Risk 3.6 3.2 2X Avg.Risk 6.2 5.0 3X Avg.Risk 8.0 6.1 LDL Cholesterol Calc 132 mg/dL (Abnormal) Range: 0-99 VLDL Cholesterol Aneesh 10 mg/dL (Normal) Range: 5-40 HDL Cholesterol 58 mg/dL (Normal) Triglycerides 48 mg/dL (Normal) Range: 0-149 Cholesterol, Total 200 mg/dL (Abnormal) Range: 100-199 6-Qtn-000209:49 CBC W/AUTO DIFF WBC (84624) Comments: PATIENT WAS FASTINGPERFORMED BY: LabGenoLogicsWeisman Children's Rehabilitation HospitalGbnryh2811 [facility] [id number]; will review at 08/07 appt Immature Grans [...] Microscopic Examination Comments: PATIENT WAS FASTINGPERFORMED BY: NeverfailWeisman Children's Rehabilitation HospitalTrvrnd1079 [facility] [id number] Bacteria Few (Normal) Mucus Threads Present (Normal) Epithelial Cells (non renal) 0-10 {/hpf} (Normal) Range: 0 - 10 RBC 0-2 {/hpf} (Normal) Range: 0 - 2 WBC 0-5 {/hpf} (Normal) Range: 0 - 5 :48 Blood Glucose , Office (32602) Blood Glucose , Office 75 (Normal) :48 HgA1C , Office (35977) HgA1C , Office 6.0 % (Normal) Range: 4.6 - 7.1 :18 TSH (49695) Comments: PATIENT WAS FASTINGPERFORMED BY: NeverfailWeisman Children's Rehabilitation HospitalVlhcmx2981 [facility] [id number] TSH 1.930 {uIU/mL} (Normal) Range: 0.450-4.500 :18 URINALYSIS, W/ MICRO (74813) Comments: PATIENT WAS FASTINGPERFORMED BY: NeverfailWeisman Children's Rehabilitation HospitalRhwflr9770 [facility] [id number] Microscopic Examination See below: (Normal) Comments: Microscopic was indicated and was performed. Nitrite, Urine Negative (Normal) Urobilinogen,Semi-Qn 0.2 mg/dL (Normal) Range: 0.2-1.0 Bilirubin Negative (Normal) Occult Blood Negative (Normal) Ketones Negative (Normal) Glucose Negative (Normal) Protein Negative (Normal) WBC Esterase 1+ (Abnormal) Appearance Clear (Normal) Urine-Color Yellow (Normal) pH 7.5 (Normal) Range: 5.0-7.5 Specific [place] 1.023 (Normal) Range: 1.005-1.030 :18 MICROALBUMIN: CREATININE RATIO Comments: PATIENT WAS FASTINGPERFORMED BY: NeverfailWeisman Children's Rehabilitation HospitalTzmtpw1579 [facility] [id number] (79555) AND (00086) Microalb/Creat Ratio 4.2 {mg/g_creat} (Normal) Range: 0.0-30.0 Microalbumin, Urine 6.3 ug/mL (Normal) Creatinine, Urine 149.4 mg/dL (Normal) :18 METABOLIC PANEL, COMPREHENSIVE Comments: PATIENT WAS FASTINGPERFORMED BY: NeverfailCibola General HospitalYuxzjt6942 [facility] [id number] (61724) ALT (SGPT) 30 [iU]/L (Normal) Range: 0-32 [...] Range: 65-99 :18 CBC W/AUTO DIFF WBC (47308) Comments: PATIENT WAS FASTINGPERFORMED BY: LabCoCibola General HospitalFbercj5983 [facility] [id number] Immature Grans (Abs) 0.0 {x10E3/uL} (Normal) Range: [...] 6.1 {x10E3/uL} (Normal) Range: 3.4-10.8 :02 TSH (91743) Comments: PATIENT WAS FASTINGPERFORMED BY: LabCoWe[facility] Rehabilitation HospitalTkfqlt4609 [facility] [id number] TSH 2.070 {uIU/mL} (Normal) Range: 0.450-4.500 :02 CBC W/AUTO DIFF WBC Comments: PATIENT WAS FASTINGPERFORMED BY: [facility]6370 [facility] [id number] Information: [id number] (67239) Immature Grans (Abs) 0.0 {x10E3/uL} (Normal) Range: [...] 3.77-5.28 WBC 5.1 {x10E3/uL} (Normal) Range: 3.4-10.8 79-Bhh-304986:02 MICROALBUMIN: CREATININE RATIO Comments: PATIENT WAS FASTINGPERFORMED BY: [facility]6370 [facility] [id number] (09727) AND (83841) Microalb/Creat Ratio 4.5 {mg/g_creat} (Normal) Range: 0.0-30.0 Microalbumin, Urine 5.7 ug/mL (Normal) Range: 0.0-17.0 Creatinine, Urine 127.2 mg/dL (Normal) Range: 15.0-278.0 :02 METABOLIC PANEL, COMPREHENSIVE Comments: PATIENT WAS FASTINGPERFORMED BY: CodeNgo70 readfyFormerly [facility] [id number] (25383) ALT (SGPT) 20 [iU]/L (Normal) Range: 0-32 [...] mg/dL (Normal) Range: 65-99 :02 LIPID PANEL (76760) Comments: PATIENT WAS FASTINGPERFORMED BY: CodeNgo70 readfyFormerly [facility] [id number] LDL/HDL Ratio 2.1 {ratio_units} (Normal) Range: 0.0-3.2 [...] Cholesterol, Total 203 mg/dL (Abnormal) Range: 100-199 67-Bux-016972:02 HGB A1C (18241) Comments: PATIENT WAS FASTINGPERFORMED BY: [facility]6370 [facility] [id number] Hemoglobin A1c 6.0 % (Abnormal) Range: 4.8-5.6 Comments: . Pre-diabetes: 5.7 - 6.4 Diabetes: >6.4 Glycemic control for adults with diabetes: <7.0 78-Jka-817175:15 CULTURE, SPUTUM (30975) Comments: PERFORMED BY: LabCoWeisman Children's Rehabilitation HospitalWymlmq49[address] [place] [address] [id number] Information: SRC: SPUTUM Result 1 RRF (Normal) Comments: Routine respiratory jamia Lower Respiratory Culture Final report (Normal) 26-Rah-973367:45 Rapid Flu (93816 x 2) Influenza A Ag negative (Normal) 72-Ouw-453932:50 HgA1C , Office (65777) HgA1C , Office 6.4 % (Normal) Range: 4.6 - 7.1 94-Aho-279001:50 Blood Glucose , Office (67168) Blood Glucose , Office 102 (Normal) Comments: non-fasting 7-Emc-027080:00 Urinalysis, Office (43783) UA - LEUKOCYTE ESTERASE Negative (Normal) UA [...] Microscopic Examination Comments: PATIENT WAS FASTINGPERFORMED BY: [facility]Tr[facility]6370 [facility] [id number] Bacteria Moderate (Abnormal) Mucus Threads Present (Normal) Epithelial Cells (non renal) >10 {/hpf} (Abnormal) Range: 0 - 10 RBC 0-2 {/hpf} (Normal) Range: 0 - 2 WBC >30 {/hpf} (Abnormal) Range: 0 - 5 :19 HgA1C , Office (16624) HgA1C , Office 6.1 % (Normal) Range: 4.6 - 7.1 :19 Blood Glucose , Office (26134) Blood Glucose , Office 98 (Normal) :19 HgA1C , Office (95600) HgA1C , Office 5.9 % (Normal) Range: 4.6 - 7.1 :19 Blood Glucose , Office (42499) Blood Glucose , Office 97 (Normal) 73-Fwj-121734:55 METABOLIC PANEL, COMPREHENSIVE Comments: PATIENT NOT FASTINGPERFORMED BY: LabCoRobert Ville 0780170 [facility] [id number] (60317) ALT (SGPT) 17 [iU]/L (Normal) Range: 0-32 [...] Glucose, Serum 85 mg/dL (Normal) Range: 65-99 99-Ezv-202910:55 CBC WITH MANUAL DIFF Comments: PATIENT NOT FASTINGPERFORMED BY: ADI [facility] Ozdiie2011 [facility] [id number] Information: [id number]; will review at 3-30 appt (10410) Immature Grans (Abs) 0.0 {x10E3/uL} (Normal) Range: [...] (Normal) Range: 3.4-10.8 :41 URINALYSIS, W/ MICRO (63492) Comments: PATIENT WAS FASTINGPERFORMED BY: Appetizer MobileWeisman Children's Rehabilitation HospitalKytkuc9800 [facility] [id number] Microscopic Examination See below: (Normal) Comments: Microscopic was indicated and was performed. Nitrite, Urine Negative (Normal) Urobilinogen,Semi-Qn 0.2 mg/dL (Normal) Range: 0.0-1.9 Bilirubin Negative (Normal) Occult Blood Negative (Normal) Ketones Negative (Normal) Glucose Negative (Normal) Protein Negative (Normal) WBC Esterase 3+ (Abnormal) Appearance Clear (Normal) Urine-Color Yellow (Normal) pH 6.5 (Normal) Range: 5.0-7.5 Specific [place] 1.020 (Normal) Range: 1.005-1.030 :41 MICROALBUMIN: CREATININE RATIO Comments: PATIENT WAS FASTINGPERFORMED BY: NeverfailWeisman Children's Rehabilitation HospitalKqhiaz5457 [facility] [id number] (84202) AND (46438) Microalb/Creat Ratio 9.9 {mg/g_creat} (Normal) Range: 0.0-30.0 Microalbumin, Urine 10.2 ug/mL (Normal) Range: 0.0-17.0 Creatinine, Urine 103.0 mg/dL (Normal) Range: 15.0-278.0 :41 METABOLIC PANEL, COMPREHENSIVE Comments: PATIENT WAS FASTINGPERFORMED BY: 1d4 [facility]Tr[facility]6370 [facility] [id number] (69331) ALT (SGPT) 33 [iU]/L (Abnormal) Range: 0-32 [...] mg/dL (Normal) Range: 65-99 :41 LIPID PANEL (80814) Comments: PATIENT WAS FASTINGPERFORMED BY: [facility] [id number] LDL/HDL Ratio 1.8 {ratio_units} (Normal) Range: 0.0-3.2 [...] MANUAL DIFF Comments: PATIENT WAS FASTINGPERFORMED BY: [facility] [place] [id number] Information: [id number] (77745) Immature Grans (Abs) 0.0 {x10E3/uL} (Normal) Range: [...] 7.1 {x10E3/uL} (Normal) Range: 3.4-10.8 :41 TSH (43791) Comments: PATIENT WAS FASTINGPERFORMED BY: Neverfail Oemvfo6218 [facility] [id number] TSH 2.910 {uIU/mL} (Normal) Range: 0.450-4.500 09-Xxd-659609:29 HEMOGLOBIN GLYCLATED (HGB Comments: PATIENT NOT FASTINGPERFORMED BY: 1d4 PtyCoCibola General HospitalLnexgo7663 [facility] [id number] Information: [id number] A1C) (05986) Hemoglobin A1c 6.1 % (Abnormal) Range: 4.8-5.6 Comments: . Increased risk for diabetes: 5.7 - 6.4 Diabetes: >6.4 Glycemic control for adults with diabetes: <7.0 :48 HgA1C , Office (74296) HgA1C , Office 9.0 % (Abnormal) Range: 4.6 - 7.1 :48 Blood Glucose , Office (62849) Blood Glucose , Office 125 (Normal) :08 HgA1C , Office (98321) HgA1C , Office 5.8 % (Normal) Range: 4.6 - 7.1 :08 Blood Glucose , Office (63411) Blood Glucose , Office 88 (Normal) 27-Nsh-367940:26 Rapid Flu (72930 x 2) Influenza A Ag negative A and B (Normal) :01 HgA1C , Office (50874) HgA1C , Office 6.0 % (Normal) Range: 4.6 - 7.1 :01 Blood Glucose , Office (01160) Blood Glucose , Office 79 (Normal) :01 HgA1C , Office (20356) HgA1C , Office 6.3 % (Normal) Range: 4.6 - 7.1 :00 Blood Glucose , Office (82207) Blood Glucose , Office 99 (Normal) :46 Microscopic Examination Comments: PATIENT WAS FASTINGPERFORMED BY: Neverfail Dicrta9140 [facility] [id number] Bacteria None seen (Normal) Mucus Threads Present (Normal) Epithelial Cells (non renal) 0-10 {/hpf} (Normal) Range: 0 - 10 RBC 0-3 {/hpf} (Normal) Range: 0 - 3 WBC 6-10 {/hpf} (Abnormal) Range: 0 - 5 :46 TSH (05373) Comments: PATIENT WAS FASTINGPERFORMED BY: Neverfail Peejyl4091 [facility] [id number] TSH 2.400 {uIU/mL} (Normal) Range: 0.450-4.500 :46 URINALYSIS, W/ MICRO (28852) Comments: PATIENT WAS FASTINGPERFORMED BY: [facility]6370 [facility] [id number] Microscopic Examination See below: (Normal) Nitrite, Urine Negative (Normal) Urobilinogen,Semi-Qn 0.2 mg/dL (Normal) Range: 0.0-1.9 Bilirubin Negative (Normal) Occult Blood Negative (Normal) Ketones Negative (Normal) Glucose Negative (Normal) Protein Trace (Normal) WBC Esterase 2+ (Abnormal) Appearance Clear (Normal) Urine-Color Yellow (Normal) pH 8.0 (Abnormal) Range: 5.0-7.5 Specific [place] 1.026 (Normal) Range: 1.005-1.030 :46 MICROALBUMIN: CREATININE RATIO Comments: PATIENT WAS FASTINGPERFORMED BY: NeverfailWeisman Children's Rehabilitation HospitalFzyywg6736 [facility] [id number] (16300) AND (11481) Microalb/Creat Ratio 2.4 {mg/g_creat} (Normal) Range: 0.0-30.0 Microalbumin, Urine 3.7 ug/mL (Normal) Range: 0.0-17.0 Creatinine, Urine 151.9 mg/dL (Normal) Range: 15.0-278.0 :46 METABOLIC PANEL, COMPREHENSIVE Comments: PATIENT WAS FASTINGPERFORMED BY: NeverfailWeisman Children's Rehabilitation HospitalRjcoaa1958 [facility] [id number] (79899) ALT (SGPT) 29 [iU]/L (Normal) Range: 0-32 [...] mg/dL (Abnormal) Range: 65-99 :46 LIPID PANEL (83109) Comments: PATIENT WAS FASTINGPERFORMED BY: CodeNgo70 [facility] [id number] LDL/HDL Ratio 1.8 {ratio_units} (Normal) Range: 0.0-3.2 [...] MANUAL DIFF Comments: PATIENT WAS FASTINGPERFORMED BY: Appetizer MobileWeisman Children's Rehabilitation HospitalLszqvf0364 [facility] [id number] Information: SRC: URINE (36605) Immature Grans (Abs) 0.0 {x10E3/uL} (Normal) Range: [...] {x10E3/uL} (Normal) Range: 4.0-10.5 :47 CCP ANTIBODY (19360) Comments: PATIENT WAS FASTINGPERFORMED BY: [employer] [facility] [id number] BY: Neverfail[address] [id number] CCP Antibodies IgG/IgA 22 {units} (Abnormal) Range: 0-19 Comments: Negative <20 Weak positive 20 - 39 Moderate positive 40 - 59 Strong positive >59 :47 SED RATE ERYTHROCYTE Comments: PATIENT WAS FASTINGPERFORMED BY: [employer] [facility] [id number] BY: [address] [id number] (46745) Sedimentation Rate-Westergren 3 mm/h (Normal) Range: 0-40 :47 C-REACTIVE PROTEIN (07607) Comments: PATIENT WAS FASTINGPERFORMED BY: [place] 8814870 [facility] [id number] BY: [address] [id number] C-Reactive Protein, Quant 6.5 mg/L (Abnormal) Range: 0.0-4.9 :47 RHEUMATOID FACTOR-QUANT Comments: PATIENT WAS FASTINGPERFORMED BY: Neverfail[address] [id number] BY: [address] [id number] (70458) RA Latex Turbid. 10.2 {IU/mL} (Normal) Range: 0.0-13.9 :47 YAMIL (ANTINUCLEAR ANTIBODY) Comments: PATIENT WAS FASTINGPERFORMED BY: 1d[address] [id number] BY: [address] [id number] (14649) YAMIL Direct Negative (Normal) :35 HgA1C , Office (31675) HgA1C , Office 6.8 % (Normal) Range: 4.6 - 7.1 :35 Blood Glucose , Office (25298) Blood Glucose , Office 89 (Normal) Comments: PATIENT DID ON HER OWN MACHINE :56 HgA1C , Office (66354) HgA1C , Office 6.0 % (Normal) Range: 4.6 - 7.1 :56 Blood Glucose , Office (71722) Blood Glucose , Office 100 (Normal) 77-Qfe-076545:45 Microscopic Examination Comments: PATIENT WAS FASTINGPERFORMED BY: LabAmanda Ville 2097070 [facility] [id number] Bacteria Many (Abnormal) Mucus Threads Present (Normal) Epithelial Cells (non renal) >10 {/hpf} (Abnormal) Range: 0 - 10 RBC 0-3 {/hpf} (Normal) Range: 0 - 3 WBC 11-30 {/hpf} (Abnormal) Range: 0 - 5 :02 HgA1C , Office (26718) HgA1C , Office 6.1 % (Normal) Range: 4.6 - 7.1 :02 Blood Glucose , Office (04095) Blood Glucose , Office 96 (Normal) :41 CBC With Differential/Platelet Comments: PATIENT WAS FASTINGPERFORMED BY: LabCoWeisman Children's Rehabilitation HospitalJibwli1383 [facility] [id number] Immature Grans (Abs) 0.0 {x10E3/uL} (Normal) Range: [...] 3.80-5.10 WBC 5.5 {x10E3/uL} (Normal) Range: 4.0-10.5 41-Ykg-570419:41 Comp. Metabolic Panel (14) Comments: PATIENT WAS FASTINGPERFORMED BY: LabCoWeisman Children's Rehabilitation HospitalXjlxyw3260 [facility] [id number] ALT (SGPT) 22 [iU]/L (Normal) Range: 0-40 [...] With LDL/HDL Comments: PATIENT WAS FASTINGPERFORMED BY: NeverfailWeisman Children's Rehabilitation HospitalKhwkao1313 [facility] [id number] Ratio LDL/HDL Ratio 1.7 {ratio_units} (Normal) Range: [...] Randm Ur Comments: PATIENT WAS FASTINGPERFORMED BY: 1d4 [facility]Tr[facility]6370 [facility] [id number] Microalb/Creat Ratio 5.5 {mg/g_creat} (Normal) Range: 0.0-30.0 Microalbumin, Urine 9.9 ug/mL (Normal) Range: 0.0-17.0 Creatinine, Urine 181.2 mg/dL (Normal) Range: 15.0-278.0 20-Hpf-724214:41 Microscopic Examination Comments: PATIENT WAS FASTINGPERFORMED BY: 1d4 [facility]Tr[facility]6370 [facility] [id number] Bacteria Few (Normal) Mucus Threads Present (Normal) Epithelial Cells (non >10 {/hpf} Range: 0 - 10 renal) (Abnormal) RBC 0-3 {/hpf} (Normal) Range: 0 - 3 WBC 0-5 {/hpf} (Normal) Range: 0 - 5 TSH 2.900 {uIU/mL} Comments: PATIENT WAS FASTINGPERFORMED BY: [facility]6370 [facility] [id number] 1:41 (Normal) Range: 0.450-4.500 82-Eit-287617:41 Urinalysis, Complete Comments: PATIENT WAS FASTINGPERFORMED BY: [address]ox RoadDublin [place] [id number] Microscopic Examination See below: (Normal) Nitrite, Urine Negative (Normal) Urobilinogen,Semi-Qn 0.2 mg/dL (Normal) Range: 0.0-1.9 Bilirubin Negative (Normal) Occult Blood Negative (Normal) Ketones Negative (Normal) Glucose Negative (Normal) Protein Negative (Normal) WBC Esterase 1+ (Abnormal) Appearance Clear (Normal) Urine-Color Yellow (Normal) pH 6.5 (Normal) Range: 5.0-7.5 Specific [place] 1.024 (Normal) Range: 1.005-1.030 02-Oxw-627940:45 URINALYSIS, W/ MICRO (14295) Comments: PATIENT WAS FASTINGPERFORMED BY: [facility]6370 [facility] [id number] Microscopic Examination See below: (Normal) Nitrite, Urine Negative (Normal) Urobilinogen,Semi-Qn 0.2 mg/dL (Normal) Range: 0.0-1.9 Bilirubin Negative (Normal) Ketones Negative (Normal) Occult Blood Negative (Normal) Glucose Negative (Normal) Protein 1+ (Abnormal) WBC Esterase 1+ (Abnormal) Appearance Turbid (Abnormal) Urine-Color Yellow (Normal) pH 8.5 (Abnormal) Range: 5.0-7.5 Specific [place] 1.027 (Normal) Range: 1.005-1.030 :45 TSH (67161) Comments: PATIENT WAS FASTINGPERFORMED BY: [facility]6370 [facility] [id number] TSH 1.890 {uIU/mL} (Normal) Range: 0.450-4.500 42-Nto-327359:45 MICROALBUMIN: CREATININE RATIO Comments: PATIENT WAS FASTINGPERFORMED BY: [place] 8814870 [facility] [id number] (80457) AND (38908) Microalb/Creat Ratio 9.5 {mg/g_creat} (Normal) Range: 0.0-30.0 Creatinine, Urine 186.1 mg/dL (Normal) Range: 15.0-278.0 Microalbumin, Urine 17.7 ug/mL (Abnormal) Range: 0.0-17.0 :45 METABOLIC PANEL, COMPREHENSIVE Comments: PATIENT WAS FASTINGPERFORMED BY: ADI [employer]70 [facility] [id number] (16932) ALT (SGPT) 21 [iU]/L (Normal) Range: 0-40 [...] Glucose, Serum 98 mg/dL (Normal) Range: 65-99 08-Wdm-418307:45 LIPID PANEL (92659) Comments: PATIENT WAS FASTINGPERFORMED BY: Joberator6370 [facility] [id number] LDL/HDL Ratio 1.6 {ratio_units} (Normal) Range: 0.0-3.2 [...] 100-199 Comments: Please note reference interval change 60-Krd-311652:45 CBC WITH MANUAL DIFF Comments: PATIENT WAS FASTINGPERFORMED BY: [facility] Teobht1149 [facility] [id number] Information: [id number] ([id number]) Immature Grans (Abs) 0.0 {x10E3/uL} (Normal) Range: [...] (Normal) Range: 4.0-10.5 :09 HgA1C , Office (69731) HgA1C , Office 6.0 % (Normal) Range: 4.6 - 7.1 :09 Blood Glucose , Office (70079) Blood Glucose , Office 79 (Normal) :33 Blood Glucose , Office (25924) Blood Glucose , Office 98 (Normal) :33 HgA1C , Office (05058) HgA1C , Office 6.0 % (Normal) Range: 4.6 - 7.1 :39 CBC & PLATELETS (AUTO) Comments: PATIENT WAS FASTINGPERFORMED BY: [facility] [id number] [facility] [id number] ([id number]) Platelets 242 {x10E3/uL} (Normal) Range: 140-415 RDW 13.8 % (Normal) Range: 11.7-15.0 MCHC 33.2 g/dL (Normal) Range: 32.0-36.0 MCH 29.9 pg (Normal) Range: 27.0-34.0 Hematocrit 40.7 % (Normal) Range: 34.0-44.0 MCV 90 fL (Normal) Range: 80-98 Hemoglobin 13.5 g/dL (Normal) Range: 11.5-15.0 RBC 4.51 {x10E6/uL} (Normal) Range: 3.80-5.10 WBC 4.8 {x10E3/uL} (Normal) Range: 4.0-10.5 :39 METABOLIC PANEL, Comments: PATIENT WAS FASTINGPERFORMED BY: NeverfailWeisman Children's Rehabilitation HospitalQmuzwr9499 [facility] [id number] Information: [id number] COMPREHENSIVE (76290) ALT (SGPT) 20 [iU]/L (Normal) Range: 0-40 [...] Glucose, Serum 94 mg/dL (Normal) Range: 65-99 41-Zcj-726740:39 TSH (THYROID STIMULATING Comments: PATIENT WAS FASTINGPERFORMED BY: 1d4 PtyCoWeisman Children's Rehabilitation HospitalQhumei6122 [facility] [id number] HORMONE) (06261) TSH 2.830 {uIU/mL} (Normal) Range: 0.450-4.500 :39 MICROALBUMIN URINE QUANT Comments: PATIENT WAS FASTINGPERFORMED BY: Sara Campbell LabCoWeisman Children's Rehabilitation HospitalMsanut8902 [facility] [id number] (63500) Creatinine, Urine 107.7 mg/dL (Normal) Range: 15.0-278.0 Microalb/Creat Ratio 4.0 {mg/g_creat} (Normal) Range: 0.0-30.0 Microalbumin, Urine 4.3 ug/mL (Normal) Range: 0.0-17.0 :39 LIPID PANEL (73588) Comments: PATIENT WAS FASTINGPERFORMED BY: ADI Neverfail Muynsh4035 [facility] [id number]; appt 06/25/11 LDL/HDL Ratio 1.9 {ratio_units} (Normal) Range: 0.0-3.2 LDL Cholesterol Calc 108 mg/dL (Abnormal) Range: 0-99 VLDL Cholesterol Aneesh 15 mg/dL (Normal) Range: 5-40 HDL Cholesterol 56 mg/dL (Normal) Comments: According to ATP-III Guidelines, HDL-C >59 mg/dL is considered anegative risk factor for CHD. Triglycerides 76 mg/dL (Normal) Range: 0-149 Cholesterol, Total 179 mg/dL (Normal) Range: 100-199 85-Lml-265712:03 HEMOGLOBIN GLYCLATED (HGB Comments: PATIENT NOT FASTINGPERFORMED BY: Neverfail Xhbgra6473 [facility] [id number] Information: [id number] A1C) (64099) Hemoglobin A1c 6.0 % (Abnormal) Range: 4.8-5.6 Comments: Increased risk for diabetes: 5.7 - 6.4 Diabetes: >6.4 Glycemic control for adults with diabetes: <7.0 40-Gin-242199:42 Blood Glucose , Office (86097) Blood Glucose , Office 120 (Normal) Comments: patient reported. Showed me on her meter and declined to have done in office today. 25-Gzr-389630:32 Microscopic Examination Comments: PATIENT WAS FASTINGPERFORMED BY: Neverfail Lflkmj0708 [facility] [id number] Bacteria Moderate (Abnormal) Mucus Threads Present (Normal) Epithelial Cells (non renal) 0-10 {/hpf} (Normal) Range: 0 - 10 RBC 0-3 {/hpf} (Normal) Range: 0 - 3 WBC 0-5 {/hpf} (Normal) Range: 0 - 5 07-Doh-438153:32 URINALYSIS, W/ MICRO (02154) Comments: PATIENT WAS FASTINGPERFORMED BY: Appetizer MobileWeisman Children's Rehabilitation HospitalUvmvhc8917 [facility] [id number] Microscopic Examination See below: (Normal) Bilirubin Negative (Normal) Microscopic Examination MICRON (Normal) Comments: Microscopic follows if indicated. Nitrite, Urine Negative (Normal) Urobilinogen,Semi-Qn 0.2 mg/dL (Normal) Range: 0.0-1.9 Glucose Negative (Normal) Ketones Negative (Normal) Occult Blood Negative (Normal) Appearance Clear (Normal) Protein Negative (Normal) WBC Esterase Negative (Normal) pH 7.0 (Normal) Range: 5.0-7.5 Urine-Color Yellow (Normal) Specific [place] 1.020 (Normal) Range: 1.005-1.030 20-Eoa-406973:32 METABOLIC PANEL, COMPREHENSIVE Comments: PATIENT WAS FASTINGPERFORMED BY: Appetizer MobileWeisman Children's Rehabilitation HospitalTsfywz3512 [facility] [id number] (05352) ALT (SGPT) 18 [iU]/L (Normal) Range: 0-40 [...] Glucose, Serum 90 mg/dL (Normal) Range: 65-99 68-Ctj-958560:32 CBC WITH MANUAL DIFF Comments: PATIENT WAS FASTINGPERFORMED BY: LabCoWeisman Children's Rehabilitation HospitalMqnbpz0555 [facility] [id number] Information: [id number] (89725) Immature Grans (Abs) 0.0 {x10E3/uL} (Normal) Range: [...] 3.80-5.10 WBC 5.0 {x10E3/uL} (Normal) Range: 4.0-10.5 48-Hoa-138644:32 TSH (83432) Comments: PATIENT WAS FASTINGPERFORMED BY: [address] [id number] TSH 3.890 {uIU/mL} (Normal) Range: 0.450-4.500 :32 MICROALBUMIN: CREATININE RATIO Comments: PATIENT WAS FASTINGPERFORMED BY: [address] [id number] (61510) AND (34190) Microalb/Creat Ratio 2.7 {mg/g_creat} (Normal) Range: 0.0-30.0 Microalbumin, Urine 3.2 ug/mL (Normal) Range: 0.0-17.0 Creatinine, Urine 117.9 mg/dL (Normal) Range: 15.0-278.0 :32 LIPID PANEL (53145) Comments: PATIENT WAS FASTINGPERFORMED BY: [place] [id number] [facility] [id number] LDL/HDL Ratio 1.8 {ratio_units} (Normal) Range: 0.0-3.2 LDL Cholesterol Calc 115 mg/dL (Abnormal) Range: 0-99 VLDL Cholesterol Aneesh 16 mg/dL (Normal) Range: 5-40 HDL Cholesterol 64 mg/dL (Normal) Comments: According to ATP-III Guidelines, HDL-C >59 mg/dL is considered anegative risk factor for CHD. Triglycerides 79 mg/dL (Normal) Range: 0-149 Cholesterol, Total 195 mg/dL (Normal) Range: 100-199 89-Mak-600054:29 PELVIC (NON ) Radiology See Note Comments: [...] on 08/10/10 1410 Sign by: Lizzy Day 69-Aan-57024:00 TRANSVAGINAL NON- Radiology See Note Comments: ADDENDUM [...] (ACTIVATED PARTIAL Comments: PATIENT NOT FASTINGPERFORMED BY: [place] [id number] [facility] [id number] THROMBOPLASTIN TIME) (14187) aPTT 29 {sec} (Normal) Range: 24-33 Comments: This test has not been validated for monitoring unfractionated heparintherapy. aPTT-based therapeutic ranges for unfractionated heparintherapy have not been established. For general guidelines onHeparin monitoring, refer to the [facility] Directory of Services. 55-Ooc-704479:44 PT (PROTHROMBIN TIME) (48233) Comments: PATIENT NOT FASTINGPERFORMED BY: [facility]6370 [facility] [id number] Prothrombin Time 10.5 {sec} (Normal) Range: 8.7-11.5 INR 1.0 (Normal) Range: 0.8-1.2 Comments: Reference interval is for non-anticoagulated patients. . Suggested INR therapeutic range for Vitamin K anta gonist therapy: Standard Dose (moderate intensity therapeutic range): 2.0 - 3.0 Higher intensity therapeutic range 2.5 - 3.5 :44 PROLACTIN (19878) Comments: PATIENT NOT FASTINGPERFORMED BY: [facility] Fciifz4753 [facility] [id number] Prolactin 14.9 ng/mL (Normal) Range: 4.8-23.3 :44 METABOLIC PANEL, Comments: PATIENT NOT FASTINGPERFORMED BY: [facility] Neyzjq5381 [facility] [id number] Information: [id number] COMPREHENSIVE (85338) ALT (SGPT) 22 [iU]/L (Normal) Range: 0-40 [...] 88 mg/dL (Normal) Range: 65-99 :44 TSH (74534) Comments: PATIENT NOT FASTINGPERFORMED BY: [facility]6370 [facility] [id number] TSH 2.410 {uIU/mL} (Normal) Range: 0.450-4.500 :44 CBC (AUTO) (08404) Comments: PATIENT NOT FASTINGPERFORMED BY: [facility]6370 [facility] [id number] MCHC 33.6 g/dL (Normal) Range: 32.0-36.0 Platelets 295 {x10E3/uL} (Normal) Range: 140-415 RDW 14.0 % (Normal) Range: 11.7-15.0 Hematocrit 38.7 % (Normal) Range: 34.0-44.0 MCH 30.1 pg (Normal) Range: 27.0-34.0 MCV 90 fL (Normal) Range: 80-98 Hemoglobin 13.0 g/dL (Normal) Range: 11.5-15.0 RBC 4.32 {x10E6/uL} (Normal) Range: 3.80-5.10 WBC 7.7 {x10E3/uL} (Normal) Range: 4.0-10.5 :23 HgA1C , Office (50416) HgA1C , Office 6.1 % (Normal) Range: 4.6 - 7.1 :23 Blood Glucose , Office (43630) Blood Glucose , Office 100 (Normal) :18 CBC With Differential/Platelet Comments: PATIENT WAS FASTINGPERFORMED BY: [facility]6370 [facility] [id number] Immature Grans (Abs) 0.0 {x10E3/uL} (Normal) Range: [...] 3.80-5.10 WBC 6.1 {x10E3/uL} (Normal) Range: 4.0-10.5 10-Wen-094267:18 Comp. Metabolic Panel (14) Comments: PATIENT WAS FASTINGPERFORMED BY: LabCoWeisman Children's Rehabilitation HospitalQualka5325 [facility] [id number] ALT (SGPT) 18 [iU]/L (Normal) Range: 0-40 [...] Glucose, Serum 99 mg/dL (Normal) Range: 65-99 57-Wnt-724053:18 Lipid Panel With LDL/HDL Comments: PATIENT WAS FASTINGPERFORMED BY: [employer] [facility] [id number] Ratio HDL Cholesterol 53 mg/dL (Normal) Comments: [...] 2.770 {uIU/mL} Comments: PATIENT WAS FASTINGPERFORMED BY: [employer] [facility] [id number] :18 (Normal) Range: 0.450-4.500 :48 HgA1C , Office (61978) HgA1C , Office 6.2 % (Normal) Range: 4.6 - 7.1 :48 Blood Glucose , Office (40380) Blood Glucose , Office 97 (Normal) :46 CBC With Differential/Platelet Comments: PATIENT WAS FASTINGPERFORMED BY: LabCoRobert Ville 0780170 [facility] [id number] Baso (Absolute) 0.0 {x10E3/uL} (Normal) Range: 0.0-0.2 [...] Panel (14) Comments: PATIENT WAS FASTINGPERFORMED BY: Neverfail Wruxtp6897 [facility] [id number] A/G Ratio 1.5 (Normal) Range: 1.1-2.5 Albumin, [...] Serum 103 mg/dL (Abnormal) Range: 65-99 If -Libyan >59 mL/min/1.73 Comments: Note: Persistent reduction for [...] With LDL/HDL Comments: PATIENT WAS FASTINGPERFORMED BY: Joberator6370 [facility] [id number] Ratio Cholesterol, Total 179 mg/dL (Normal) Range: [...] Cholesterol Aneesh 14 mg/dL (Normal) Range: 5-40 54-Djo-55324:46 Thyroxine (T4) Free, Direct, S Comments: PATIENT WAS FASTINGPERFORMED BY: LabCoWeisman Children's Rehabilitation HospitalQnyqth7731 [facility] [id number] T4,Free(Direct) 1.13 ng/dL Range: 0.61-1.76 (Normal) 30-Jul-2008 Triiodothyronine,Free,Seru 3.0 pg/mL (Normal) Comments: PATIENT WAS FASTINGPERFORMED BY: LabCoWeisman Children's Rehabilitation HospitalPrsxmf3591 [facility] [id number] 9:46 m Range: 2.3-4.2 30-Jul-2008 TSH 2.949 {uIU/mL} Comments: PATIENT WAS FASTINGPERFORMED BY: LabCoWeisman Children's Rehabilitation HospitalGkilkz4304 [facility] [id number] 9:46 (Normal) Range: 0.450-4.500 13-Fav-65140:43 Blood Glucose , Office (50314) Comments: done>Wf. Blood Glucose , Office 100 (Normal) 2-Lth-226792:30 GLUP 105 mg/dL (Normal) Comments: GLU,2HPPG 75gm GLUC PPG GLUP from 1208:J26888G. 3-Ixh-757733:24 ESR SED RATE 31 mm/h (Abnormal) Range: 0-30 0-Cdl-539631:24 HGB A1C 6.7 % (Abnormal) Range: 4.0-6.3 Comments: The methodology of Hgb A1C has changed to Dale BehringDimension RXL. No significant changes in patientresults are expected. The reference range remains the same. 2-Kvg-814470:03 BREAST UNILATERAL US () Radiology Report See Note (Normal) Comments: Exam Number: [id number] TARGETED RIGHT BREAST ULTRASOUND HISTORYAbnormal mammogram. High [...] Report See Note (Normal) Comments: Exam Number: [id number] TARGETED RIGHT BREAST ULTRASOUND HISTORYAbnormal mammogram. High-resolution [...] werealso examined with computer-aide d detection software ([employer] Reported By: PHYLLIS HEWITT M.D. 21-Jul-20088:36 [facility] DIGITAL & CAD Radiology Report See Note (Normal) Comments: Exam Number: [id number] MAMMOGRAM, BILATERAL SCREENING DIGITAL AND CAD HISTORYRoutine [...] patient reported a previous study performed at [facility]. That examination was too old [...] mammograms werealso examined with computer-aided detection software ([employer], Janalakshmi.). Reported By: PHYLLIS HEWITT M.D. 58-Mnv-90370:26 H pylori, IgM, IgG, IgA Ab Comments: PERFORMED BY: [facility]6370 [facility] [id number] H. pylori IgG, Abs <0.9 U/mL (Normal) [...] Diarrhea Unspecified osteoarthritis, unspecified site : Reviewed Solar Consultant Letter Indication: Unspecified osteoarthritis, unspecified site Controlled [...] - Strool Based DNA Test, CRC SCREEN (37692)Indication: Screening for colon cancer On: 23-Fiq-839979:51 Request TSH (08901)Indication: Controlled diabetes mellitus type II without complication On: 4-Xnk-757263:53 Request URINALYSIS, W/ MICRO (93898)Indication: Controlled diabetes mellitus type II without complication On: 6-Tlx-619720:53 Request MICROALBUMIN: CREATININE RATIO (40507) AND (71502)Indication: Controlled diabetes mellitus type II without complication On: 3-Yqy-227192:53 Request METABOLIC PANEL, COMPREHENSIVE (48560)Indication: Controlled diabetes mellitus type II without complication On: 2-Llx-772504:53 Request LIPOPROTEIN, BLD, BY NMR (26390)Indication: Controlled diabetes mellitus type II without complication On: 9-Oxv-617747:53 Request LIPID PANEL (49324)Indication: Controlled diabetes mellitus type II without complication On: 9-Ybz-611273:53 Request CBC W/AUTO DIFF WBC (78996)Indication: Controlled diabetes mellitus type II without complication On: 3-Rje-070054:52 Request HGB A1C (38892)Indication: Controlled diabetes mellitus type II without complication On: 22-Mar-20178:18 Request LIPID PANEL (73049)Indication: Hypercholesteremia On: 22-Mar-20178:17 Request HGB A1C (57248)Indication: Uncontrolled type II diabetes mellitus On: 31-Oct-2016 Request POTASSIUM SERUM (80386)Indication: High potassium On: 0-Fkt-617006:06 Request HELICO PYLORI, STOOL, INFCT ANTIGEN (37586)Indication: NSAID long-term use On: 4-Bky-398051:05 Request TSH (15031)Indication: Uncontrolled type II diabetes mellitus On: 3-Cur-424181:58 Request TSH (25063)Indication: Pain in unspecified joint On: 21-Sec-907413:41 Request CBC WITH MANUAL DIFF (69889)Indication: Pain in unspecified joint On: 76-Wqe-512906:41 Request METABOLIC PANEL, COMPREHENSIVE (52264)Indication: Pain in unspecified joint On: 86-Yku-652295:41 Request URINALYSIS, W/ MICRO (27480)Indication: Benign essential hypertension On: 17-Had-690319:06 Request MICROALBUMIN: CREATININE RATIO (08251) AND (36590)Indication: Benign essential hypertension On: 54-Wqb-180607:06 Request URINE CED CULTURE-IDENTIFICATN (82503)Indication: Other abnormal finding of urine On: 34-Rtd-863597:56 Request TSH (36053)Indication: Controlled diabetes mellitus type II without complication On: :41 Request URINALYSIS, W/ MICRO (11298)Indication: Benign essential hypertension On: 5-Qan-384291:41 Request MICROALBUMIN: CREATININE RATIO (34461) AND (39243)Indication: Benign essential hypertension On: :41 Request METABOLIC PANEL, COMPREHENSIVE (98772)Indication: Benign essential hypertension On: :41 Request LIPID PANEL (37155)Indication: Benign essential hypertension On: :41 Request CBC WITH MANUAL DIFF (65755)Indication: Benign essential hypertension On: :41 Request TSH (44039)Indication: Uncontrolled type II diabetes mellitus On: :37 Request METABOLIC PANEL, COMPREHENSIVE (67247)Indication: Uncontrolled type II diabetes mellitus On: :36 Request MICROALBUMIN: CREATININE RATIO (72149) AND (22487)Indication: Uncontrolled type II diabetes mellitus On: :36 Request LIPID PANEL (42916)Indication: Uncontrolled type II diabetes mellitus On: :36 Request CBC WITH MANUAL DIFF (73810)Indication: Uncontrolled type II diabetes mellitus On: :36 Request H. PYLORI BLD TEST UREASE NON-RAD (52785)Indication: Epigastric pain On: 21-Ziq-23129:09 Request Planned Encounters Medical; 3 Month FU - On: 21-Jul-2018 11:45 [facility] Nina Jiménez DO, DO, Kathleen Planned Procedures Bone Density StudyBy: Tino ALONSO, On: 03-Jul-2018 Intent Nina Stover DO MAMMOGRAM BREAST BILATERAL On: 03-Jul-2018 Intent SCREENING DIGITAL (31979)By: Nina Jiménez DO, DO, Kathleen CT SCAN OF ABDOMEN AND PELVIS WITH On: 26-Jul-2017 Intent CONTRAST (32622)By: Nina Jiménez DO, DO, Kathleen ELECTROCARDIOGRAM, COMPLETE (ECG) On: 26-Jul-2017 Intent (78599)By: Nina Jiménez DO Comments: nsr no acute chg Nina Jiménez DO MAMMOGRAM, SCREENING, BOTH BREAST On: 01-Nov-2016 Intent (60116)By: Nina Jiménez DO, DO, Kathleen Echo CompleteBy: Tino ALONSO, On: 18-May-2016 Intent Nina Stover DO Comments: dr mckee Holter Monitor 24 hrsBy: Tino On: 04-May-2016 Intent Nina ALONSO DO, Kathleen ELECTROCARDIOGRAM, COMPLETE (ECG) On: 04-May-2016 Intent (35932)By: Nina Jiménez DO Comments: ? a fib vs atrial tachycardia - df rev as well -- thought maybe some flutter trying to breakthru where we see P waves -- pt asx and hemodynamically stable Nina Jiménez DO MRI ANKLE LEFT WO CONTRAST On: 14-Nov-2015 Intent (77514)By: Nina Jiménez DO, DO, Kathleen Aerosol Treatment (87389)By: Slarb On: 08-Dec-2014 Intent Nette VASQUEZ EKG (23746)By: Tino ALONSO, On: 16-Aug-2014 Intent Nina Stover [...] 08-Jul-2013 Intent (G8553)By: Geovanna Nuñez LPN EKG (34918)By: Trisha Emery MD On: 03-Jul-2013 Intent Comments: see scanned document of test done to see results reviewed today with patient Eprescribed prescriptions On: 08-Apr-2013 Intent (G8553)By: Geovanna Nuñez LPN EKG (28058)By: Tino ALONSO, On: 18-Aug-2012 Intent Nina Stover DO Comments: nsr no acute chg Eprescribed prescriptions On: 18-Aug-2012 Intent (G8553)By: Lidya Stephenson LPN Eprescribed prescriptions On: 08-May-2012 Intent (G8553)By: Nina Jiménez DO, DO, Kathleen Eprescribed prescriptions On: 08-May-2012 Intent (G8553)By: Geovanna Nuñez LPN CT - Neck (IV Contrast Needed)By: On: 28-Oct-2011 Intent Nina Jiménez DO, DO, Comments: follow up original image done at [facility]-- ( mri cervical spine) Nina EKG (74062)By: Tino ALONSO, On: 25-Jul-2011 Intent Nina Stover DO Comments: NSR NO ACUTE CHG Ultrasound - PelvisBy: Tino ALONSO, On: 01-Dec-2010 Intent Nina Stover DO Ultrasound - PelvisBy: Tino ALONSO, On: 02-Aug-2010 Intent Nina Stover DO Comments: may do vaginal probe if need to EKG (68389)By: Tino ALONSO, On: 16-Feb-2010 Intent Nnia Stover DO Comments: nsr no acute chnages FLU VAC, SPLIT, >3 YEARS, On: 29-Jul-2008 Intent INTRAMUSC (76283)By: Nina Jiménez DO DONina IMMUNIZ ADMNIN, 1 VAC, SNGL/COMBO On: 29-Jul-2008 Intent (38703)By: Nina Jiménez DO Comments: lot # [id number]- 02/15/0908wsca-GDDLvneon-MSdrcj- 0.5ML chenderson tolerated well Tino DO, Nina IMMUNIZ ADMNIN, 1 VAC, SNGL/COMBO On: 29-Jul-2008 Intent (59050)By: Nina Jiménez DO Comments: lot # [id number]- 12/27/20194872bcph-UJYVaduvs-OIhvzc- O.5ML chenderson tolerated well Tino DO, Nina PNEUM VAC ADLT/IMUMNOSPR, On: 29-Jul-2008 Intent SBC/INTRM (55806)By: Nina Jiménez DO, DO, Kathleen EKG (98282)By: Tino , On: 29-Jul-2008 Intent Nina Stover DO MAMMOGRAM, SCREENING, BOTH BREASTS On: 04-Jun-2008 Intent (31651)By: Jojo Santoyo Instructions Name Dates Details Physical [...] Pain,Unspecified Site (789.00) [facility] Payers [facility]Nina Ayon; dia guarantor
--- OUTSIDE RECORDS SUMMARY | 2018-09-13 21:14 | XMS RPT_ITS ---
:1955 Author Organization [place] Support Name Relationship Address Phone CARMEN MCBRIDE Unrelated Friend Alison [address] + [place] [address] FIG[address] A[address]ON [address] + [place] [address] UE Unknown Unavailable Unavailable CARMEN MCBRIDE Unrelated Friend [address] + [place] [address] [address] + [place] [address] UE Unknown Unavailable Unavailable CARMEN MCBRIDE Unrelated Friend [address] + [place] [address] [address] + [place] [address] UE Unknown Unavailable Unavailable CARMEN MCBRIDE Unrelated Friend [address] + [place] [address] [address] + [place] [address] UE Unknown Unavailable Unavailable CARMEN MCBRIDE Unrelated Friend [address] + [place] [address] [address]ON [address] + [place] [address] UE Unknown Unavailable Unavailable CARMEN MCBRIDE Unrelated Friend [address] + [place] [address] [address] + [place] [address] UE Unknown Unavailable Unavailable CARMEN MCBRIDE Unrelated Friend [address] + [place] [address] [address] + [place] [address] UE Unknown Unavailable Unavailable RAE, CARMEN Unrelated Friend [address] + [place] [address] [address] + [place] [address] UE Unknown Unavailable Unavailable FIGUEROA AYON [address] + [place] [address] UE Unknown Unavailable Unavailable FIGUEROA AYON [address] + [place] [address] UE Unknown Unavailable Unavailable FIGUEROA AYON [address] + [place] [address] UE Unknown Unavailable Unavailable CARMEN MCBRIDE Unrelated Friend [address] + [place] [address] [address]ON [address] + [place] [address] UE Unknown Unavailable Unavailable GABO EDIL RodrigoAlfonso [address] [place] [address] DR + [place] [address] UE Unknown Unavailable Unavailable UE Unknown Unavailable Unavailable JERAMY AYON [address] + [place] [address] MAY AYONTIS Jennifer [address] [place] [address] DR + [place] [address] UE Unknown Unavailable Unavailable Care Team Providers Name Role Phone Nina Jiménez DO Attending Unavailable Tino DONina Referring Unavailable Tino DONina Consulting Unavailable TinoNina Attending Unavailable Tino, Nina Primary Care Unavailable Bright Paz Attending Unavailable TinoNina Referring Unavailable Lety Torres Attending Unavailable MoodispaHaile anthony Attending Unavailable TinoZoNina Referring Unavailable Tino, Nina Primary Care Unavailable Haile Mckee Attending Unavailable Haile Mckee Referring Unavailable Tino, Nina Primary Care Unavailable Dusty Snider Attending Unavailable Tino, Nina Referring Unavailable Tino, Nina Primary Care Unavailable Haile Mckee Attending Unavailable Haile Mckee Referring Unavailable Tino, Nina Primary Care Unavailable Haile Mckee Attending Unavailable Haile Mckee Referring Unavailable Tino, Nina Primary Care Unavailable Chrissy Perry Attending Unavailable [place], Haile Attending Unavailable [place], Haile Attending Unavailable Tino, Nina Primary Care Unavailable Sylvester, Cedric Attending Unavailable Tino, Nina Attending Unavailable Tino, Nina Referring Unavailable Tino, Nina Primary Care Unavailable Tino, Nina Attending Unavailable Tino, Nina Referring Unavailable Tino, Nina Primary Care Unavailable Purpose Purpose PROBLEMS PROBLEMS DATE TYPE CONDITION / CODE ATTENDING STATUS SOURCE 08/04/2018 Unknown K42.9 - Umbilical Brandi, Bright Active [facility] hernia without Community obstruction or Hospital gangrene / Repository K42.9(ICD-10) 08/04/2018 Unknown M62.08 - Separation BrandiBright chambers Active [facility] of muscle Community (nontraumatic), Hospital other site / Repository M62.08(ICD-10) 08/04/2018 Unknown M94.0 - [place], Bright Active [facility] Chondrocostal Community junction [facility] [[facility]] / Repository M94.0(ICD-10) 03/18/2018 Unknown R94.39 - Abnormal [place], Haile Active [facility] result of other Community cardiovascular Hospital function study / Repository R94.39(ICD-10) 03/15/2018 Unknown R07.9 - Chest pain, [place], Haile Active [facility] unspecified / Community R07.9(ICD-10) Hospital Repository 01/09/2018 Unknown I48.0 - Paroxysmal [place], Haile Active [facility] atrial fibrillation Community / I48.0(ICD-10) Hospital Repository 01/09/2018 Unknown I36.1 - Nonrheumatic [place], Haile Active [facility] tricuspid (valve) Community insufficiency / Hospital I36.1(ICD-10) Repository 01/09/2018 Unknown I34.0 - Nonrheumatic [place], Haile Active [facility] mitral (valve) Community insufficiency / Hospital I34.0(ICD-10) Repository 01/09/2018 Unknown E78.5 - [place], Haile Active [facility] Hyperlipidemia, Community unspecified / Hospital E78.5(ICD-10) Repository 01/09/2018 Unknown I10 - Essential [place], Haile Active [facility] (primary) Community hypertension / Hospital I10(ICD-10) Repository 01/09/2018 Unknown Z79.01 - retirement Haile Mckee Active [facility] (current) use of Community anticoagulants / Hospital Z79.01(ICD-10) Repository PROCEDURES PROCEDURES No Procedure Records FoundVITAL SIGNS VITAL SIGNS No Vital Signs Records FoundRESULTS RESULTS SURGERY VISIT REPORT Observed: 08/04/2018 Status: F Source: MAT[facility]W 9:01 AM [facility] HOSPITAL REPOSITORY [facility] [address] [place] [address] OFFICE VISIT Date of Service: 08/04/18 MR#: [id number] Acct: [id number] Name: NINA AYON Rep #: [id number] : 1955 Provider: Bright Paz MD Age/Sex: 63/F Location: [facility] Status: Signed Intake Vital Signs08/04/18 Body Mass Index (BMI) 37.9 08/04/18 Height 5 ft 7 in 08/04/18 Weight: 238 lb 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: Umbilical Hernia Accounting Intern Required: No Is patient in pain?: No Allergies pneumococcal vaccine Allergy (Verified 08/04/18 08:36) Unknown seasonal allergies Allergy (Mild, Uncoded 04/19/18 14:52) itching Medications Citalopram Hydrobromide [Citalopram HBr] 20 mg PO DAILY 06/30/16 [History Confirmed 08/04/18] Pantoprazole Sodium [Protonix] 40 mg PO BID 06/30/16 [History Confirmed 08/04/18] Rivaroxaban [Xarelto] 20 mg PO DAILY 06/30/16 [History Confirmed 08/04/18] metoprolol succinate ER 100 mg tablet,extended release 24 hr 100 mg PO QDAY 01/07/18 [History Confirmed 08/04/18] hydrochlorothiazide 25 mg tablet 25 mg PO QDAY #90 tab 07/08/18 [Rx Confirmed 08/04/18] Bifidobacterium infantis 4 mg capsule 4 mg PO DAILY cap 08/04/18 [History Confirmed 08/04/18] amlodipine 5 mg tablet 5 mg PO DAILY 08/04/18 [History Confirmed 08/04/18] PFSH Medical History Anxiety (Acute) Abnormal stress test (Acute) Chest pain (Acute) Hyperlipidemia (Chronic) Hypertension (Chronic) Nonrheumatic mitral valve regurgitation (Chronic) Nonrheumatic tricuspid (valve) insufficiency (Chronic) Paroxysmal atrial fibrillation (Acute) retirement (current) use of anticoagulants (Chronic) Abdominal pain (Acute) Diabetes (Acute) Umbilical hernia (Acute) GERD (gastroesophageal reflux disease) (Chronic) IBS (irritable bowel syndrome) (Chronic) Surgical History History of left heart catheterization (Chronic 03/11/18) Family History Father CHF (congestive heart failure) Asthma Hypertension Heart disease Son Asthma Other Diabetes Parkinsons Social History Smoking Status: Never smoker alcohol intake: never substance use type: does not use HPI HPI HPI: NINA AYON, is a 63 F who presents to the office today for discomfort in her upper abdominal area extending down towards her umbilicus. Patient states that she notices a bulge sometimes at her umbilicus area as well as her midline when she does a sit up. She is also noticed some discomfort extending all the way down from her costal margins down towards her umbilical [...] or kidney problems. In addition she states that when she takes a proton pump inhibitor she always gets diarrhea. She states that she is on a probiotic and her bowels have been fairly normal for her. She has not complained of any nausea or vomiting. She has had no problems with bowel movements. ROS General General: No weight change, appetite, fatigue, colon cancer, breast cancer or weakness HEENT HEENT: No difficulty swallowing, eye injury, eye surgery, swollen glands or hoarseness Endo Endocrine: Yes diabetes mellitus; no thyroid disease, thyroid cancer, Hair loss, heat intolerance or cold intolerance Skin Skin: No rash or changing moles Breast Breast: No left breast lump, right breast lump, nipple discharge, breast pain, abnormal mammogram, abnormal US or breast enlargement Musc Musculoskeletal: Yes arthritis; no back problems, rheumatoid arthritis, gout or joint pain Cardio Cardiovascular: Yes atrial fibrillation and high blood pressure; no pacemaker, heart disease, heart attack, heart stent, palpitations, shortness of breat with exertion or chest pain Psych Psychiatric: Yes anxiety; no depression or hearing voices Resp Respiratory: Yes shortness of breath, No sleep apnea, No cough, No COPD, No asthma, No emphysema, No wheezing Gastro Gastrointestinal: Yes abdominal pain, Yes nausea or vomiting, Yes diarrhea, No constipation, No blood in stool, Yes acid reflux, Yes hemorrhoids, No ulcers, No gallbladder problem, No black,tarry stools Barrett Hematologic: Yes blood thinners, No blood [...] No radiating pain, No restless legs, No sensory deficit, No fainting, Yes tingling, No tremor(s), No weakness, No other Exam Const General: well developed, no acute distress, well hydrated Orientation: oriented to person, oriented to place, oriented to time [facility] Head: normocephalic, atraumatic Ears: external ears normal Mouth: moist mucous membranes Eyes Sclera: sclerae normal Pupils: normal by confrontation Neck Neck: no lymphadenopathy noted Neck mass: No Thyroid: symmetrical, thyroid normal Chest Chest palpation AND inspection: normal inspection of the chest Breast Palpation: No nipple discharge GI Palpation: soft, tender, no masses, no hepatosplenomegaly Rectal Exam: other Other: Small umbilical defect is identified. She has tenderness all along her linea alba and extending up towards her costal margin she more likely does have a small component of costochondritis. Rectal exam deferred. Extrem General: no clubbing, cyanosis or edema, normal to inspection Assessment AND Plan Problems 1. Umbilical hernia without obstruction and without gangrene K42.9 2. Diastasis recti M62.08 3. [...] We also had a lengthy discussion about her knee pain she is happy that it [...] Date (if applicable) CC: Nina Jiménez DO SCREENING MAMM (CAD), Observed: 08/04/2018 Status: F Source: [facility] 7:52 AM [facility] Imaging Services [address] [place] [address] SCREENING MAMM (CAD), BIL MR#: [id number] Acct: [id number] Name: GABONINA B Rep #: [id number] : 1955 F 63 From: Jaya Mac MD PCP: Nina Jiménez DO Status: REG CLI Study: SCREENING MAMM (CAD), BILAT Date of Exam: 08/04/18 Exam# [id number] Ordering Dr: Nina Jiménez DO MAMMOGRAPHY - BILATERAL SCREENING REASON [...] 2016. FINDINGS: Breast Composition: The breasts are extremely dense, which lowers the sensitivity of mammography. There are no dominant masses or suspicious calcifications. Stable small bilateral axillary lymph nodes. No other significant abnormalities are identified. There has been no significant change since the prior study. BI/SCREENING MAMM (CAD), BILAT IMPRESSION: Stable bilateral screening mammogram. Yearly follow-up mammogram recommended. (A) ASSESSMENT CATEGORY: BIRADS Category 2: Benign. A letter regarding these results will be sent to the patient by the facility within 30 days. Approximately 10% of breast cancers are not detected by mammography. A normal mammogram should not delay biopsy of a clinically suspicious abnormality. [id number] Electronically Signed: Jaya Mac MD at 9:12 EST Tel [phone], Service support , CC: Nina Jiménez DO Pump And Still Operator: Signed KNEE 1 OR 2 VIEWS Observed: 07/21/2018 Status: F Source: [facility] 1:17 PM [facility] Imaging Services [address] [place] [address] Knee 1 or 2 Views MR#: [id number] Acct: [id number] Name: NINA AYON Rep #: [id number] : 1955 F 63 From: Clayton Newman MD PCP: Nina Jiménez DO Status: REG CLI Study: Knee 1 or 2 Views Date of Exam: 07/21/18 Exam# [id number] Ordering Dr: Nina Jiménez DO STUDY: X-RAY [...] IMPRESSION: Severe tricompartmental arthritic changes. Electronically Signed: Clayton Newman MD at 22:52 EST , Service support , CC: Nina Jiménez DO Pump And Still Operator: Signed KNEE 1 OR 2 VIEWS Observed: 07/21/2018 Status: F Source: [facility] 1:17 PM [facility] RE[facility] Imaging Services [address] [place] [address] Knee 1 or 2 Views MR#: [id number] Acct: [id number] Name: GABONINA B Rep #: [id number] : 1955 F 63 From: Clayton Newman MD PCP: Nina Jiménez DO Status: REG CLI Study: Knee 1 or 2 Views Date of Exam: 07/21/18 Exam# [id number] Ordering Dr: Nina Jiménez DO STUDY: X-RAY [...] Severe tricompartmental degenerative changes. Electronically Signed: Clayton Newman MD at 22:53 EST , Service support , CC: Nina Jiménez DO Pump And Still Operator: Signed 12 LEAD ELECTROCARDIOGRAM Observed: 04/22/2018 Status: F Source: [facility] 1:28 PM [facility] Cardiovascular Services [address] [place] [address] 12 Lead EKG 04/19/18 1456 MR#: [id number] Acct: [id number] Name: NINA AYON Rep #: [id number] : 1955 62 From: Bright Peng MD Attending Dr: Status: DEP ER Ordering Dr: Cedric Sylvester MD Date: 04/19/18 Location: ED Sex: F C Admitted: Test Reason : CP Blood Pressure : / mmHG Vent. Rate : 078 BPM Atrial Rate : 078 BPM P-R Int : 158 ms QRS Dur : 098 ms QT Int : 400 ms P-R-T Axes : 053 039 059 degrees QTc Int : 456 ms Sinus rhythm with frequent Premature ventricular complexes in a pattern of bigeminy Possible Left atrial enlargement Borderline ECG Confirmed by BRIGHT PENG ([id number]), news videotape editor OBDULIO PURDY ([id number]) on 04/22/2018 1:27:45 PM Referred By: JOHN Confirmed By:BRIGHT PENG 04/22/18 1327 Date Bright Peng MD CC: Nina Jiménez DO; Cedric Sylvester MD Signed EMERGENCY DEPARTMENT Observed: 04/19/2018 Status: F Source: [facility] SUMMARY 5:01 PM [facility] RE[facility] Medical Records Department [address] [place] [address] Emergency Department Summary 04/19/18 1653 MR#: [id number] Acct: [id number] Name: NINA AYON Rep #: [id number] : 1955 62 From: Cedric Sylvester MD PCP: Nina Jiménez DO Status: PRE ER - ER Visit Summary Date of Service: 04/19/18 Chief Complaint: Left side chest pain with pleuritic component 4 months that has gotten worse over the past several days to week. History of Present Illness: The patient is a 62 F who presents with left-sided pain that has a pleuritic component. She reports she cannot lie on her [...] in etiology. Patient denies any history of trauma. She denies any skin lesions or rash. [...] URI symptoms. She denies any leg pain, swelling discoloration. She has no prior history of [...] the left breast. There is no crepitus subcutaneous air or dermatologic abnormalities noted. Heart is [...] the deep venous system. Test Results: CBC unremarkable. Hepatic lipase are unremarkable. CBC, PT/INR and troponin were ordered per nursing staff prior to me seeing the patient. They were ordered per nursing protocol and not by me. Emergency Department Course and Treatment: With a normal cardiac catheterization [...] a chest x-ray was obtained. The chest x-ray reveals no acute process. 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 Treatment Plan: Follow-up with primary care physician Dr. Jiménez Disposition: Discharged to home with friend Impression: Anterior left-sided chest pain and abdominal pain with pleuritic component This note was generated with [employer] dictation software. It may contain incorrect words, spelling, and punctuation that were not noted in review of the chart prior to signing ED Disposition - Plan for ED Patient: Disposition: Home or Assisted Living Chief Complaint: Chest Pain Instructions: ED Chest Pain NonCardiac, ED Chest Pain Pleurisy Prescriptions: Prednisone 40 mg PO DAILY #10 tab Referrals: Nina Jiménez, [Primary Care Provider] - 3-5 Days if not improving What to do if you have Problems For any increased pain, shortness of breath, bleeding, nausea or vomiting, chest pain, or any unexpected problems, contact your Primary Care Provider. Call [facility] ([phone]) or report to the closest Emergency Room. Call 911 if necessary. 04/19/18 1701 <Electronically signed by Cedric Sylvester MD> Date Cedric Sylvester MD Cosigner Signature (If Indicated): Date CC: Nina Jiménez DO LIVER PROFILE Collected: 04/19/2018 Status: F Source: [facility] 3:39 PM [facility] TYPE CODE TESTS RESULT OUT OF RANGE REFERENCE UNITS LAB L501.1500 6.4-8.2 g/dL Normal T PROT 7.5 LAB L501.1800 3.2-5.0 g/dL Normal ALB 3.9 LAB L501.1950 2.2-4.2 g/dL Normal GLOB 3.6 LAB L501.4100 15-37 U/L Normal AST 30 LAB L501.4305 45-117 U/L Normal ALK P 88 LAB L501.4405 13-56 U/L Normal ALT 37 LAB L501.4600 0.20-1.00 mg/dL Normal T BILI 0.30 LAB L501.4700 0.00-0.30 mg/dL Normal D BILI 0.07 Performed By: #### L500.3400, L501.2450 #### [facility] [address] [place], [place], [address] LIPASE Collected: 04/19/2018 Status: F Source: [facility] 3:39 PM [facility] TYPE CODE TESTS RESULT OUT OF RANGE REFERENCE UNITS LAB L501.2450 73-393 U/L Normal LIPASE 127 Performed By: #### L500.3400, L501.2450 #### [facility] [address] [place], [place], [address] PROTHROMBIN TIME W/INR Collected: 04/19/2018 Status: F Source: [facility] 3:10 PM [facility] TYPE CODE TESTS RESULT OUT OF RANGE REFERENCE UNITS LAB L300.4150 11.7-14.9 SECONDS High PROTIME 17.9 LAB L300.4200 Normal INR 1.5 Performed By: #### L300.3900 #### [facility] [address] [place], [place], [id number] BASIC METABOLIC Collected: 04/19/2018 Status: F Source: [facility] PROFILE (BMP) 3:10 PM [facility] RE[facility] TYPE CODE TESTS RESULT OUT OF RANGE REFERENCE UNITS LAB L501.0100 74-106 mg/dL High GLU 108 Result Comment: Fasting Glucose result from 100 to 125 mg/dL suggests IMPAIRED HOMEOSTASIS per A.D.A. criteria. Please note revised GLUCOSE reference range effective 2017. LAB L501.1000 7-18 mg/dL Normal BUN 11 LAB L501.1100 0.55-1.02 mg/dL Normal CREAT,SERUM 0.63 Result Comment: The validity of the calculated GFR AND GFRAA in patients over 70 years has not been determined. Clinical correlation is essential. LAB L501.1110 >60 mL/min Normal EST GFR 101 Result Comment: Non- GFR Calc LAB L501.1115 >60 mL/min Normal EST GFR - AA 123 Result Comment: GFR Calc LAB L501.1255 ml/min Normal Estimated CRCL 88.90 LAB L501.1300 10-20 RATIO Normal BUN/CRE 17.4 LAB L501.2200 8.5-10 mg/dL Normal .1 CA 8.8 LAB L501.5300 136-14 mmol/L Normal 5 NA 138 LAB L501.5600 3.5-5. mmol/L Normal 1 K 3.8 LAB L501.5900 98-107 mmol/L Normal CL 103 LAB L501.6100 21.0-3 mmol/L Normal 2.0 CO2 26.0 LAB L501.6200 5-15 Normal GAP 9 Performed By: #### L500.2500, L501.4010 #### [facility] [address] [place], [place], [address] TROPONIN-I Collected: 04/19/2018 Status: F Source: [facility] 3:10 PM [facility] TYPE CODE TESTS RESULT OUT OF RANGE REFERENCE UNITS LAB L501.4010 <0.045 ng/mL Normal < 0.015 TROPONIN-I Result Comment: TROPONIN-I EXPECTED VALUES <0.045 Negative 0.045 - 0.590 Consistent with Cardiac Damage > OR = 0.600 Critical Value Not every elevated troponin is indicative of SD. These values should be used with clinical judgement in examining the patient's clinical picture for diagnosis. To establish a diagnosis of SD versus myocardial injury, there must be a demonstrated rise and/or fall in the troponin values, in addition to ischemic symptoms, EKG changes, new regional wall motion abnormality, and/or angiographical evidence. PLEASE NOTE: REFERENCE RANGES EDITED 17 Performed By: #### L500.2500, L501.4010 #### [facility] [place], [address] CBC W/DIFF, AUTOMATED Collected: 04/19/2018 Status: F Source: [facility] 3:10 [facility] REPOSITORY TYPE CODE TESTS RESULT OUT OF RANGE REFERENCE UNITS LAB L100.1000 4.4-11.0 K/mm3 Normal WBC 6.9 LAB L100.1200 4.2-5.4 M/mm3 Normal RBC 4.53 LAB L100.1300 12.0-15.0 g/dl Normal HGB 13.4 LAB L100.1400 37-47 % Normal HCT 40.7 LAB L100.1500 81-99 fL Normal MCV 89.8 LAB L100.1600 27.0-32.0 pg Normal MCH 29.6 LAB L100.1700 32-36 g/gl Normal MCHC 32.9 LAB L100.1810 11.6-14.6 % High RDW CV 14.8 LAB L100.1820 35.1-43.9 fl High RDW SD 48.3 LAB L100.1900 150-450 K/mm3 Normal PLT 251 LAB L100.2000 6.2-12.0 fl Normal MPV 12.0 LAB L100.2100 47-70 % High NEUT% 70.7 LAB L100.2200 19-41 % Low LY% 18.9 LAB L100.2300 0-10 % Normal MONO% 8.7 LAB L100.2400 0-5 % Normal EO% 1.3 LAB L100.2500 0-1 % Normal BASO% 0.1 LAB L100.2550 0.0-0.9 % Normal IM GRAN % 0.300 Result Comment: IG% - Immature Granulocytes (promyelocytes, myelocytes and metamyelocytes) > 1% indicates that a LEFT SHIFT is Present. LAB L100.2620 2.0-7.7 X10 3/uL Normal Absolute Neut 4.9 LAB L100.2720 0.83-4.51 X10 3/ul Normal Absolute Lymph 1.31 Performed By: #### L100.0100 #### [facility] [address] [place], [address] CHEST 1 VIEW Observed: 04/19/2018 Status: F Source: [facility] (PORTABLE) 3:05 PM [facility] Imaging Services [address] [place] [address] Chest 1 View (Portable) MR#: [id number] Acct: [id number] Name: NINA AYON Rep #: [id number] : 1955 F 62 From: Dolly Hardy MD PCP: Nina Jiménez DO Status: PRE ER Study: Chest 1 View (Portable) Date of Exam: 04/19/18 Exam# [id number] Ordering Dr: Cedric Sylvester MD STUDY: X-RAY CHEST REASON FOR EXAM: Female, 62 years [...] changes, as described above. No demonstrated acute cardiopulmonary process. Electronically Signed: Dolly Hardy MD at 16:16 EDT Tel , Service support , CC: Nina Jiménez DO; Cedric Sylvester MD Pump And Still Operator: Signed CARDIOLOGY VISIT Observed: 02/10/2018 Status: F Source: COUNC[facility] REPORT 3:06 PM [facility] [place] [address] [place] [address] OFFICE VISIT Date of Service: 02/10/18 MR#: [id number] Acct: [id number] Name: NINA AYON Rep #: [id number] : 1955 Provider: KATHY Snider Age/Sex: 62/F Location: [facility] Status: Signed HPI HPI Details: NINA AYON, is a 62 F who presents to the office today for a cardiovascular outpatient follow-up. She has a history of paroxysmal atrial fibrillation, mitral valve insufficiency, tricuspid valve insufficiency, hypertension, and hyperlipidemia. After last office visit she underwent a nuclear stress test that was considered abnormal. She will be undergoing a heart catheterization for further evaluation. Pt. denies chest, arm, jaw, or neck discomfort. Her exercise tolerance is stable though limited. Pt. denies symptoms of CHF, palpitations, lightheadedness, dizziness, near syncope, or syncopal episodes. Pt. denies edema or claudication issues. Pt. denies orthopnea, PND, fever, chills, blood in urine, blood in stool, myalgia, or unexplainable fatigue. She does acknowledge an increase in overall anxiety/stress. Intake Vital Signs02/10/18 Height 5 ft 7 in 02/10/18 Weight: 243 lb 8 oz 02/10/18 Body Mass Index (BMI) 38.1 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: Update H AND P for LHC Accompanied by: Friend Is patient in pain?: Yes (neck and chest pain- Throbbing ) Pain scale (1-10): 7 Allergies pneumococcal vaccine Allergy (Verified 01/09/18 10:13) [...] [History Confirmed 01/09/18] aspirin 81 mg tablet,delayed release 81 mg PO QDAY 02/05/18 [History] clopidogrel 75 mg tablet 75 mg PO QDAY #30 tab 02/10/18 [Rx Confirmed 02/10/18] [facility] Medical History Abnormal stress test (Acute) Chest pain (Acute) Hyperlipidemia (Chronic) Hypertension (Chronic) Nonrheumatic mitral valve regurgitation (Chronic) Nonrheumatic tricuspid (valve) insufficiency (Chronic) Paroxysmal atrial fibrillation (Acute) 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 (Chronic) GERD (gastroesophageal reflux disease) (Chronic) IBS (irritable bowel syndrome) (Chronic) Family History Father CHF (congestive heart failure) Other Diabetes Parkinsons Social History Smoking Status: Never smoker alcohol intake: never substance use type: does not use ROS Const Const: Negative for fatigue, weakness, body ache, fever(s) or chills ENT ENT: Negative for dizziness Cardio Chest Pain: No Palpitations: No Edema: None Muscle aches with walking: None Resp Respiratory: Negative for SOB with activity, SOB at rest, SOB orthopnea\SOB lying down or paroxysmal nocturnal dyspnea GI GI: Negative nausea, black,tarry stools, bright, red blood in stools or vomiting blood/hematemesis : Negative for hematuria or frequent nighttime urination/ nocturia Musc Musc: Negative for muscle aches/ myalgia Skin Skin: Negative non-healing lesions or rash Neuro Neuro: Negative for weakness, dizziness, lightheadedness, near syncope, syncope or orthostatic symptoms Endo Endo: Negative for fatigue Psych Psych: Positive for anxiety Allergy Allergy/Immunology: Negative for rash Cardiology Exam Const Appearance: cooperative, healthy appearing, comfortable, no acute distress, well developed and well groomed Nutritional Appearance: obese Orientation: alert, awake and oriented x3 Head Head: normal to inspection, normocephalic and atraumatic Ears: hearing grossly normal bilaterally Nose: external nose normal Face and Sinus: face symmetric Mouth: oral mucosae normal Teeth and gingiva: dentition normal Eyes Eyelids: eyelids normal Conjunctivae: conjunctivae normal Pupils: PERRL EOM: EOM intact bilaterally Neck Neck: normal visual inspection and full ROM Carotids: normal carotid upstroke Chest Chest inspection: normal inspection of the chest and symmetric chest movement Auscultation: Bilateral: Clear to Auscultation Cardio Palpation: normal PMI Rate: regular rate Rhythm: regular rhythm and ectopic beats Heart sounds: S1 [...] underwent a transthoracic echocardiogram on 11/07/2016 at [facility]. The results are as noted below. [...] and occasional PVCs during her recovery, peak exercise EKG with somatic/motion artifact with no obvious EKG changes, and was considered to likely adequate exercise tolerance stents. Nuclear images revealed area concerning of stress-induced myocardial ischemia in portions of the mid to distal anterior segments, however, contribution from shifting soft tissue attenuation/artifact could not be excluded. THIS IS A24 HOUR HOLTER MONITOR IN ATRIAL FIBRILLATION. MINIMUM HEART [...] NOT CORRELATE WITH THE SCAN. Assessment AND Plan 1. Abnormal stress test R94.39 Plan Patient's stress test from January 2018 could not rule out an area of mid to distal anterior ischemia. She will be undergoing a heart catheterization for further evaluation of this. She was instructed to stop her Xarelto 4 days prior to heart catheterization. The day that she stops Xarelto she was asked to begin a loading dose, 300 mg, up Plavix and continue with Plavix 75 mg p.o. daily up to and including the morning of heart catheterization. She was also asked to start aspirin therapy when she begins Plavix. Depending on heart catheterization results, further recommendation will be made. 2. Essential hypertension I10 Plan Patient's blood pressure is well-controlled today in the office. We will continue to monitor this. We will not make any medication regimen changes. 3. Hyperlipidemia, unspecified hyperlipidemia type E78.5 Plan This is managed by primary care physician. She is not on any statin/cholesterol-lowering medication. Depending on results of her heart catheterization this may need to be addressed. 4. Nonrheumatic mitral valve regurgitation I34.0 Plan Echocardiogram from October 2016 showed an ejection fraction of 60% and mild to moderate mitral valve insufficiency. Patient denies any shortness of breath or activity intolerance. She will continue with current medications and we will continue to monitor this through history, exam, and repeat echocardiogram as needed. 5. Nonrheumatic tricuspid (valve) insufficiency I36.1 Plan Patient's echocardiogram from October 2016 showed mild to moderate tricuspid valve insufficiency. She will continue current medications and we will continue to monitor this. 6. Paroxysmal atrial fibrillation I48.0 Plan She appears to be maintaining regular rhythm. She will continue with beta-seema and factor Xa inhibitor. We will continue to monitor this. 7. 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 We will wait for results of the heart catheterization for further guidance regarding this. 8. Anxiety F41.9 Plan Patient expressed concerns regarding coping and/or increase in anxiety. This may be due to abnormal stress test and need for heart catheterization. She was asked to discuss this further with primary care physician regarding medication adjustments and/or support regarding coping mechanisms. Plan Detail Other [...] reviewing the office note prior to saving. 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 Z79.01 Anxiety F41.9 Coding Level of Care Code Off vis,est,level 3 Diagnoses Abnormal stress test R94.39 Essential hypertension I10 Hyperlipidemia, unspecified hyperlipidemia type E78.5 Nonrheumatic mitral valve regurgitation I34.0 Nonrheumatic tricuspid (valve) insufficiency I36.1 Paroxysmal atrial fibrillation I48.0 retirement (current) use of anticoagulants Z79.01 Anxiety F41.9 02/10/18 1506 <Electronically signed by Dusty MORALES> Date Dusty Snider NPMarisa Daltonjenny Signature: Date (if applicable) CC: Nina Jiménez CBC-COMPLETE BLOOD CNT Collected: 02/10/2018 Status: F Source: [place] NO DIFF 11:44 AM [facility] [place] TYPE CODE TESTS RESULT OUT OF RANGE REFERENCE UNITS LAB L100.1000 4.4-11.0 K/mm3 Normal WBC 6.2 LAB L100.1200 4.2-5.4 M/mm3 Normal RBC 4.59 LAB L100.1300 12.0-15.0 g/dl Normal HGB 13.6 LAB L100.1400 37-47 % Normal HCT 40.6 LAB L100.1500 81-99 fL Normal MCV 88.5 LAB L100.1600 27.0-32.0 pg Normal MCH 29.6 LAB L100.1700 32-36 g/gl Normal MCHC 33.5 LAB L100.1810 11.6-14.6 % Normal RDW CV 13.9 LAB L100.1820 35.1-43.9 fl High RDW SD 44.7 LAB L100.1900 150-450 K/mm3 Normal PLT 267 LAB L100.2000 6.2-12.0 fl Normal MPV 11.4 Performed By: #### L100.0500, L300.3900, L300.4310, L500.2500 #### [facility] [address] [place], [place], [address] PROTHROMBIN TIME W/INR Collected: 02/10/2018 Status: F Source: [place] 11:44 AM [facility] TYPE CODE TESTS RESULT OUT OF RANGE REFERENCE UNITS LAB L300.4150 11.7-14.9 SECONDS High PROTIME 21.0 LAB L300.4200 Normal INR 1.8 Performed By: #### L100.0500, L300.3900, L300.4310, L500.2500 #### [facility] [address] [place], [place], [id number] PARTIAL THROMBOPLAST Collected: 02/10/2018 Status: F Source: [place] TIME 11:44 AM [facility] TYPE CODE TESTS RESULT OUT OF REFERENCE UNITS RANGE LAB L300.4310 24.1-36.2 Seconds High PTT 37.7 Performed By: #### L100.0500, L300.3900, L300.4310, L500.2500 #### [facility] [address] [place], [place], [address] BASIC METABOLIC Collected: 02/10/2018 Status: F Source: [place] PROFILE (BMP) 11:44 AM [facility] TYPE CODE TESTS RESULT OUT OF RANGE REFERENCE UNITS LAB L501.0100 74-106 mg/dL Normal GLU 102 Result Comment: Fasting Glucose result from 100 to 125 mg/dL suggests IMPAIRED HOMEOSTASIS per A.D.A. criteria. Please note revised GLUCOSE reference range effective 2017. LAB L501.1000 7-18 mg/dL Normal BUN 11 LAB L501.1100 0.55-1.02 mg/dL Normal CREAT,SERUM 0.69 Result Comment: The validity of the calculated GFR AND GFRAA in patients over 70 years has not been determined. Clinical correlation is essential. LAB L501.1110 >60 mL/min Normal EST GFR 93 Result Comment: Non- GFR Calc LAB L501.1115 >60 mL/min Normal EST GFR - AA 112 Result Comment: GFR Calc LAB L501.1300 10-20 RATIO Normal BUN/CRE 16.0 LAB L501.2200 8.5-10.1 mg/dL CA Normal 9.2 LAB L501.5300 136-145 mmol/L NA Normal 137 LAB L501.5600 3.5-5.1 mmol/L K Normal 3.8 LAB L501.5900 98-107 mmol/L CL Normal 101 LAB L501.6100 21.0-32.0 mmol/L Normal CO2 28.0 LAB L501.6200 5-15 Normal GAP 8 Performed By: #### L100.0500, L300.3900, L300.4310, L500.2500 #### [facility] [address] [place], [place], [address] CHEST PA AND LATERAL Observed: 02/10/2018 Status: F Source: [place] 11:29 AM [facility] REPOSITORY [facility] Imaging Services [address] [place] [address] Chest PA and Lateral MR#: [id number] Acct: [id number] Name: INNA AYON Rep #: [id number] : 1955 F 62 From: Leslye Sue MD PCP: Nina Jiménez DO Status: REG CLI Study: Chest PA and Lateral Date of Exam: 02/10/18 Exam# [id number] Ordering Dr: Haile Mckee MD STUDY: X-RAY CHEST REASON FOR EXAM: Female, 62 years old. Chest pain. TECHNIQUE: PA and lateral views of the chest. COMPARISON: June 28, 2016 FINDINGS: The lungs are clear and expanded. There is no demonstrated pleural abnormality. Normal size heart. Normal mediastinum and amarilys. Normal visualized pulmonary arteries. There is atherosclerotic calcification of the aortic arch . There are diffuse degenerative changes of the visualized thoracic spine. Normal visualized ribs, clavicles, and shoulders. There is no demonstrated abnormality of the visualized soft tissue structures of the upper abdomen. RAD/Chest PA and Lateral IMPRESSION: No acute cardiopulmonary process. Electronically Signed: Leslye Sue MD at 17:31 EDT Tel , Service support , CC: Nina Jiménez DO; Haile Mckee MD Pump And Still Operator: Signed STRESS REPORT Observed: 02/04/2018 Status: F Source: [place] 2:05 PM [facility] REPOSITORY [facility] Cardiovascular Services [address] [place] [address] MR#: [id number] Acct: [id number] Name: NINA AYON Rep #: [id number] : 1955 62 From: Haile Mckee MD Primary Care: Tino ALONSONina Status: REG CLI Ordering Dr: Sex: F C Stress Test Report Date: 02/04/2018 Procedure: Exercise tolerance test/imaging study Indications: Chest pain; paroxysmal atrial fibrillation Consent: Per [...] 7 METs. The baseline ECG demonstrated sinus bradycardia. The peak exercise ECG demonstrated somatic/motion artifact with no obvious ECG changes. There were occasional PACs and PVCs during exercise and occasional PVCs during recovery. The functional capacity was considered average. There was no complaint of chest discomfort during exercise or recovery. The examination was discontinued secondary to dyspnea and leg discomfort. Impression: 1. Technically adequate (percent predicted maximal heart rate greater than 85%) exercise tolerance test 2. Peak exercise ECG with somatic/motion artifact with no obvious ECG changes 3. There were occasional PACs and PVCs during exercise and occasional PVCs during recovery. 4. Nuclear images pending Myocardial perfusion imaging study: Technique: The patient was injected with 14.3 mCi of technetium 99m Cardiolite and subsequently rest SPECT Cardiolite nuclear [...] realignment, normalization, and attenuation correction, demonstrates the appearance of subtle diminished tracer uptake in the mid anterior segments at rest and status post stress the appearance of more prominent diminished tracer uptake in the mid to distal anterior segments. There are similar type changes on the resting [...] study reports an LVEF of 65 %. This note was generated with avVentaation software. It may contain incorrect words, spelling, and punctuation that were not noted in checking the note before signing. 02/04/18 1405 <Electronically signed by Haile Mckee MD> Date Haile Mckee MD CC: Nina Jiménez DO; Haile Mckee MD Date Dictated: 02/04/18 1354 Date Transcribed: 02/04/18 1354 Pump And Still Operator: PM Signed CARDIOLOGY VISIT Observed: 01/09/2018 Status: F Source: COUNCIL REPORT 11:03 AM [facility] [address] [place] [address] OFFICE VISIT Date of Service: 01/09/18 MR#: [id number] Acct: [id number] Name: NINA AYON Rep #: [id number] : 1955 Provider: Haile Mckee MD Age/Sex: 62/F Location: [facility] [place] Status: Signed HPI HPI Details: NINA AYON, is a 62 F who presents to the office today for for outpatient cardiovascular follow-up. Since her visit in April 2017 she states she has been doing reasonably well with respect to her atrial dysrhythmia appear she occasionally feels a anxiety moment. She questions whether that could be her atrial fibrillation. However it does not last. She has had no near syncopal or syncopal events. She has had no concerning episodes of orthopnea or PND or worsening peripheral pitting edema. She has had episodes of chest discomfort. She states this appears to be somewhat more prominent when she is exerting herself. She feels a heavy weight like sensation on her chest. 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 (Chronic) GERD (gastroesophageal reflux disease) (Chronic) IBS (irritable bowel syndrome) (Chronic) Family History Father CHF (congestive heart failure) Social History Smoking Status: Never smoker alcohol intake: never substance use type: does not use ROS Const Const: Positive for fatigue (increased); negative for weakness, weight gain, weight loss, frequent falls or excessive sweating Eyes Eyes: Negative for change in vision, blurry vision or transient loss of vision ENT ENT: Positive for dizziness (with bending over); negative for balance problems Cardio Chest Pain: [...] or joint pain Skin Skin: Negative non-healing lesions or rash Neuro Neuro: Positive for dizziness (with bending over); negative for weakness, blurry vision, lightheadedness, frequent falls or orthostatic symptoms Barrett Hematologic/Lymphatic: Negative for easy bleeding Endo Endo: Positive for fatigue (increased); negative for excessive sweating Psych Psych: Negative for anxiety or depression Allergy Allergy/Immunology: Negative for hives, Negative for rash Cardiology Exam Const Appearance: cooperative, healthy appearing, comfortable, no acute distress, well developed and well groomed Nutritional Appearance: obese Orientation: alert, awake and oriented x3 Head Head: normal to inspection, normocephalic and atraumatic Ears: hearing grossly normal bilaterally Nose: external nose normal Face and Sinus: face symmetric Mouth: oral mucosae normal Teeth and gingiva: dentition normal Eyes Eyelids: eyelids normal Conjunctivae: conjunctivae normal Pupils: PERRL EOM: EOM intact bilaterally Neck Neck: normal visual inspection and full ROM Carotids: normal carotid upstroke Chest Chest inspection: normal inspection of the chest and symmetric chest movement Auscultation: Bilateral: Clear to Auscultation Cardio Palpation: normal PMI Rate: regular rate Rhythm: regular rhythm and ectopic beats Heart sounds: S1 normal and S2 normal GI GI: obese, normal to inspection, bowel sounds present, soft and no hepatosplenomegaly Neuro General: alert, awake, oriented x3, gait normal, moves all extremities and no focal motor deficits Skin Skin: no rashes or lesions noted Extremities Pulses: Normal: Right Radial Pulse, Left Radial Pulse Lower Extremity Edema: None: Bilateral Psych Psychological: normal affect Supplemental Info She underwent a transthoracic echocardiogram on 11/07/2016 at [facility]. The results are as noted below. [...] left interatrial shunt. Normal appearing thoracic aorta. IMPRESSION: 1. Rest and stress SPECT Cardiolite nuclear [...] to suggest inducible ischemia. THIS IS A24 HOUR HOLTER MONITOR IN ATRIAL FIBRILLATION. MINIMUM HEART [...] NOT CORRELATE WITH THE SCAN. Assessment AND Plan 1. Chest pain, unspecified type R07.9 Plan She does have chest discomfort. It is exertional. It is concerning for the possible CAD and myocardial ischemia. She was asked to have further evaluation with an exercise tolerance test/imaging study. She was agreeable to this approach. Orders Orders: 2. Paroxysmal atrial fibrillation I48.0 Plan She does have a history of paroxysmal atrial fibrillation. She appears to be remaining in sinus rhythm. She will continue her current medical management and follow-up. Orders Orders: 3. Nonrheumatic mitral valve insufficiency I34.0 Plan She does have a history of both MR and TR. She has been evaluated in the past noninvasively. She will continue medical management and follow-up including echocardiographic studies as deemed appropriate. Orders Orders: 4. Non-rheumatic tricuspid valve insufficiency I36.1 Plan Again she has an element of TR. She will continue evaluation care as noted above. Orders Orders: 5. Hyperlipidemia, unspecified hyperlipidemia type E78.5 Plan A copy of her most recent lipid labs would be appreciated for continuity of care. Orders Orders: 6. Essential hypertension I10 Plan Her blood pressure appears to be recently well controlled. She will continue medical management and follow-up. Orders Orders: 7. retirement current use of anticoagulant Z79.01 Plan Again [...] control. Thank you for allowing me to participate in the care of your patient. Please [...] insufficiency I36.1 Hyperlipidemia, unspecified hyperlipidemia type E78.5 Hyperlipidemia type: unspecified Essential hypertension I10 Hypertension type: essential hypertension retirement current use of anticoagulant Z79.01 Coding Level of Care Code Off vis,est,level 4 Diagnoses Chest pain, unspecified type R07.9 Chest pain type: unspecified Paroxysmal atrial fibrillation I48.0 Nonrheumatic mitral valve insufficiency I34.0 Non-rheumatic tricuspid valve insufficiency I36.1 Hyperlipidemia, unspecified hyperlipidemia type E78.5 Hyperlipidemia type: unspecified Essential hypertension I10 Hypertension type: essential hypertension retirement current use of anticoagulant Z79.01 01/09/18 1103 <Electronically signed by Haile Mckee MD> Date Haile Mckee MD Cosign Signature: Date (if applicable) CC: Nina Jiménez DO 12 LEAD EKG PERFORMED Observed: 01/09/2018 Status: F Source: [place] BY [facility] 10:26 AM [facility] REPOSITORY [facility] [address] [place] [address] 12 Lead EKG performed by [facility] 01/09/181024 MR#: [id number] Acct: [id number] Name: NINA AYON Rep #: [id number] : 1955 62 From: Haile Mckee MD Attending Dr: Haile Mckee MD Status: DEP AMB Ordering Dr: Haile Mckee MD Date: 01/09/18 Location: [facility] [place] [facility] Sex: F C Admitted: [facility]/12 Lead EKG performed by [facility] ECG Report Interpretation Sinus Rhythm - occasional ectopic ventricular beat Electronically signed on 01/09/2018 at 12:24 by Haile Mckee 01/09/18 1227 Date Haile Mckee MD CC: Nina Jiménez DO Date Dictated: 01/09/18 102 Date Transcribed: 01/09/18 102 Pump And Still Operator: PM Signed ALLERGIES ALLERGIES DATE TYPE / CODE NAME / CODE REACTION SEVERITY SOURCE Drug pneumococcal Unknown Unknown [place] [facility] Allergy/[id number]( vaccine/[id number] Community SNOMED CT) 6(RXNORM) Hospital Repository Miscellaneous seasonal Itching [place] 8 Allergy/288889994( allergies Community SNOMED CT) Hospital Repository ENCOUNTERS ENCOUNTERS ADMIT/DISCHARGE ACCOUNT ADMITTING ENCOUNTER LOCATION SOURCE NUMBER CLASS 08/18/2018 [id number] Ambulatory Building:[facility] OHIP Practices Repository 08/04/2018/ [id number] Ambulatory BMSBuilding:B [place] 8 7 [facility] Hospital Repository 08/04/2018 [id number] Ambulatory [place] 6 [facility] Hospital ing:OPBI Repository 07/21/2018 [id number] Ambulatory [place] [facility] ing:HPRAD Repository 07/21/2018 [id number] Ambulatory [place] 5 [facility] ing:RAD.FUTUR Repository E 04/19/2018/ [id number] Emergency [place] 8 0 [facility] ing:ED Repository 03/12/2018 [id number] Ambulatory BMSBuilding:B [place] 0 [facility] Repository 03/11/2018/ [id number] Ambulatory [place] 8 2 [facility] ing:CLSP Repository 03/11/2018 [id number] Ambulatory BMSBuilding:W [place] 4 [facility] Repository 02/10/2018 [id number] Ambulatory [place] 8 [facility] ing:RAD Repository 02/10/2018/ [id number] Ambulatory BMSBuilding:B [place] 8 1 [facility] Repository 02/04/2018 [id number] Ambulatory [place] 5 [facility] ing:CVS Repository 02/04/2018 [id number] Ambulatory BMSBuilding:W [place] 3 [facility] Repository 01/09/2018/ [id number] Ambulatory BMSBuilding:B [place] 8 3 [facility] Repository 01/07/2018 [id number] Ambulatory BMSBuilding:B [place] 0 [facility] Repository FUNCTIONAL STATUS FUNCTIONAL STATUS No Functional Status Records FoundEQUIPMENT EQUIPMENT No Equipment Records FoundPAYERS PAYERS ENCOUNTER GUARANTOR PAYER SUBSCRIBER SOURCE 08/18/2018 Nina Sarkar Figueroa Daniel LoweryB: OHIP Practices GaboDOB: Insurance:Hernandez [id number] Repository [facility] Number: [place], [place] [id number] [id number]: [phone]: [phone]) Date:[id number] [phone] (HP) [phone] Name:[facility] Box ()Tel: [phone], [place] [phone] () 269[address]ZN: 08/18/2018 Secondary Nina B OHIP Practices Insurance:Donta AyonDOB: Repository /[facility] Number: [id number] [place] ve Date:2005-08-19 - [facility] [place] [id number] [id number]: Name:[facility] Box ~(3 [phone] [place] 30 ) [phone]: 08/04/2018 NINA B Primary FIGUEROA L MEIERDOB: [place] [id number] Insurance:[facility] [id number] Number: Repository [id number]: [phone] [id number] [phone] (HP) Date:[id number]BY[place], [place] [address]YN: 08/04/2018 Secondary NOT GIVENUNK [place] Insurance:SELF PAY [facility] Number: Effective Repository Date:2018-08-04 08/04/2018 NINA B Primary FIGUEROA L MEIERDOB: [place] [id number] Insurance:[facility] [id number] Number: Repository [address]Kmn: 330 [id number] [phone] (HP) Date:7765-57-78HJ [address], [place] [address]YM: 08/04/2018 Secondary NOT GIVENUNK [place] Insurance:SELF PAY [facility] Number: Effective Repository Date:2018-07-03 07/21/2018 NINA B Primary FIGUEROA L MEIERDOB: Matthew [id number] Insurance:[facility] [id number] Number: Repository [id number]: 330 [id number] [phone] () Date:4253-37-15DB [facility] [id number], [place] [address]KA: 07/21/2018 Secondary NOT GIVENUNK Matthew Insurance:SELF PAY [facility] Number: Effective Repository Date:2018-07-21 07/21/2018 NINA B Primary FIGUEROA L MEIERDOB: [place] [id number] Insurance:[facility] [id number] Number: Repository [id number]: 330 [id number] [phone] (HP) Date:4012-96-84TK [facility] [place]3889[place], [place] [address]OH: 07/21/2018 Secondary NOT GIVENUNK [place] Insurance:SELF PAY [facility] Number: Effective Repository Date:2018-07-21 04/19/2018 NINA B Primary FIGUEROA L MEIERDOB: [place] [id number] Insurance:[facility] [id number] Number: Repository [id number]: 330 [id number] [phone] (HP) Date:1051-16-55IN [facility] [place]18299[place], [place] [address]XM: 04/19/2018 Secondary NOT GIVENUNK [place] Insurance:SELF PAY [facility] Number: Effective Repository Date:2018-04-19 03/12/2018 NINA B Primary FIGUEROA L MEIERDOB: [place] [id number] Insurance:[facility] [id number] Number: Repository [id number]: 330 [id number] [phone] (HP) Date:2665-64-91RQ [address], [place] [address]ZZ: 03/12/2018 Secondary NOT GIVENUNK [place] Insurance:SELF PAY [facility] Number: Effective Repository Date:2018-03-12 03/11/2018 NINA B Primary FIGUEROA L MEIERDOB: [place] [id number] Insurance:[facility] [id number] Number: Repository [id number]: 330 [id number] [phone] (HP) Date:6746-57-00PM [address] [place] [address]SM: 03/11/2018 Secondary NOT GIVENUNK Matthew Insurance:SELF PAY [facility] Number: Effective Repository Date:2018-02-05 03/11/2018 NINA B Primary FIGUEROA L MEIERDOB: Matthew [id number] Insurance:[facility] [id number] Number: Repository [id number]: 330 [id number] [phone] () Date:6339-50-26TK [address]OSHGBB, [place] [address]FS: 03/11/2018 Secondary NOT GIVENUNK Matthew Insurance:SELF PAY [facility] Number: Effective Repository Date:2018-03-11 02/10/2018 NINA B Primary FIGUEROA L MEIERDOB: [place] [id number] Insurance:[facility] [id number] Number: Repository [id number]: 330 [id number] [phone] (HP) Date:7457-63-64RT [address], [place] [address]NT: 02/10/2018 Secondary NOT GIVENUNK Matthew Insurance:SELF PAY [facility] Number: Effective Repository Date:2018-02-10 02/10/2018 NINA Kaur Primary FIGUEROA L MEIERDOB: [place] [id number] Insurance:[facility] [id number] Number: Repository [id number]: 330 [id number] [phone] () Date:6140-99-62ER [facility] [place]20415RF[place], [place] [address]WA: 02/10/2018 Secondary NOT GIVENUNK [place] Insurance:SELF PAY [facility] Number: Effective Repository Date:2018-02-10 02/04/2018 NINA Kaur Primary FIGUEROA L GABODOB: Matthew [id number] Insurance:[facility] [id number] Number: Repository [id number]: [phone] [id number] [phone] () Date:0788-08-20HH [address]AQ[place], [place] [address]YR: 02/04/2018 Secondary NOT GIVENUNK Matthew Insurance:SELF PAY [facility] Number: Effective Repository Date:2018-01-09 02/04/2018 NINA Kaur Primary FIGUEROA L MEIERDOB: Matthew [id number] Insurance:[facility] [id number] Number: Repository [id number]: 330 [id number] [phone] (HP) Date:4906-10-01EN [facility] 621747[place], [place] [address]CY: 02/04/2018 Secondary NOT GIVENUNK [place] Insurance:SELF PAY [facility] Number: Effective Repository Date:2018-02-04 01/09/2018 Jeramy Sanchez Primary FIGUEROA L MEIERDOB: [place] [id number] Insurance:[facility] [id number] Number: Repository [id number]: [phone] [id number] [phone] () Date:8439-46-89GN [address]FRKNSY, [place] [address]HY: 01/09/2018 Secondary NOT GIVENUNK [place] Insurance:SELF PAY [facility] Number: Effective Repository Date:2018-01-09 01/07/2018 Jeramy Sanchez Primary FIGUEROA L MEIERDOB: [place] [id number] Insurance:[facility] [id number] [id number] [place] [address] Number: Repository [id number]: [phone] [id number] [phone] () Date:5560-23-50ZW [address], [place] [address]VP: 01/07/2018 Secondary NOT GIVENUNK [place] Insurance:SELF PAY [facility] Number: Effective Repository Date:2018-01-07 SOCIAL HISTORY SOCIAL HISTORY No Social History Records FoundFAMILY HISTORY FAMILY HISTORY No Family History Records FoundADVANCE DIRECTIVES ADVANCE DIRECTIVES No Advanced Directives Records FoundINFORMATION SOURCE INFORMATION SOURCE DATE CREATED AUTHOR AUTHOR'S ORGANIZATION 09/10/2018 [facility]
== END ==
PROVIDERS: Family Provider Internal Medicine; PCP Internal Medicine; Referring Provider Internal Medicine; Visit Provider Internal Medicine
DX: M25.561 Pain in right knee (principal); M25.562 Pain in left knee
CPT/HCPCS: 73560

== ENCOUNTER → 2018-08-04 07:49 | Outpatient (CLI) | payer OTHER, SELFPAY ==
--- NOTE | 2018-08-04 07:52 | BI_ITS ---
MAMMOGRAPHY - BILATERAL SCREENING REASON FOR EXAM: Female, 63 years old. Routine annual screening examination. PERTINENT HISTORY: Grandmother with breast cancer. TECHNIQUE: Digital bilateral breast devi (3D mammographic acquisition) in the CC and MLO projections. 2-D mediolateral oblique (MLO) and craniocaudad (CC) views of both breasts were obtained. CAD: Full Field Digital Mammography with Computer Added Detection was performed. COMPARISON: Comparison is made with prior study dated November 02, 2016. FINDINGS: Breast Composition: The breasts are extremely dense, which lowers the sensitivity of mammography. There are no dominant masses or suspicious calcifications. Stable small bilateral axillary lymph nodes. No other significant abnormalities are identified. There has been no significant change since the prior study. BI/SCREENING MAMM (CAD), BILAT IMPRESSION: Stable bilateral screening mammogram. Yearly follow-up mammogram recommended. (A) ASSESSMENT CATEGORY: BIRADS Category 2: Benign. A letter regarding these results will be sent to the patient by the facility within 30 days. Approximately 10% of breast cancers are not detected by mammography. A normal mammogram should not delay biopsy of a clinically suspicious abnormality. [id number] Electronically Signed: Jaya Mac MD at 9:12 EST Tel [phone], Service support ,
--- OUTSIDE RECORDS SUMMARY | 2018-11-05 17:27 | XMS RPT_ITS ---
:1955 Author Organization [place] Support Name Relationship Address Phone CARMEN MCBRIDE Unrelated Friend [address] + [place] [address] FIGUEROA AYON [address] + [place] [address] UE Unknown Unavailable Unavailable CARMEN MCBRIDE Unrelated Friend [address] + [place] [address] FIGUEROA AYON [address] + [place] [address] UE Unknown Unavailable Unavailable CARMEN MCBRIDE Unrelated Friend [address] + [place] [address] FIGUEROA AYON [address] + [place] [address] UE Unknown Unavailable Unavailable CARMEN MCBRIDE Unrelated Friend [address] + [place] [address] FIGUEROA AYON [address] + [place] [address] UE Unknown Unavailable Unavailable CARMEN MCBRIDE Unrelated Friend [address] + [place] [address] FIGUEROA AYON [address] + [place] [address] UE Unknown Unavailable Unavailable CARMEN MCBRIDE Unrelated Friend [address] + [place] [address] FIGUEROA AYON [address] + [place] [address] UE Unknown Unavailable Unavailable CARMEN MCBRIDE Unrelated Friend [address] + [place] [address] FIGUEROA AYON [address] + [place] [address] UE Unknown Unavailable Unavailable RAE, CARMEN Unrelated Friend [address] + [place] [address] FIGUEROA AYON [address] + [place] [address] UE Unknown Unavailable Unavailable FIGUEROA AYON [address] + [place] [address] UE Unknown Unavailable Unavailable FIGUEROA AYON [address] + [place] [address] UE Unknown Unavailable Unavailable FIGUEROA AYON [address] + [place] [address] UE Unknown Unavailable Unavailable CARMEN MCBRIDE Unrelated Friend [address] + [place] [address] FIGUEROA AYON [address] + [place] [address] UE Unknown Unavailable Unavailable GABO EDIL RodrigoAlfonso [address] [place] [address] DR + [place] [address] UE Unknown Unavailable Unavailable UE Unknown Unavailable Unavailable JERAMY AYON [address] + [place] [address] MAY AYONTIS Jennifer [address] [place] [address] DR + [place] [address] UE Unknown Unavailable Unavailable Care Team Providers [...] / Repository M62.08(ICD-10) 08/04/2018 Unknown M94.0 - Anderson, Bright Active [facility] [[facility]] / Repository M94.0(ICD-10) 03/18/2018 Unknown R94.39 - [...] Unknown I10 - Essential Moodispaw, Haile Active [place] (primary) Community hypertension / Hospital I10(ICD-10) Repository 01/09/2018 Unknown Z79.01 - senior care Haile Mckee Active [place] (current) use of Community anticoagulants / Hospital Z79.01(ICD-10) Repository PROCEDURES PROCEDURES No Procedure Records FoundVITAL SIGNS VITAL SIGNS No Vital Signs Records FoundRESULTS RESULTS SURGERY VISIT REPORT Observed: 08/04/2018 Status: F Source: [place] 9:01 AM [facility] HOSPITAL REPOSITORY [facility] 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) use of anticoagulants (Chronic) Abdominal pain [...] person, oriented to place, oriented to time [facility] Head: normocephalic, atraumatic Ears: external ears [...] MAMM (CAD), Observed: 08/04/2018 Status: F Source: [facility] 7:52 AM [facility] REPOSITORY [facility] Imaging Services [address] [place] [address] SCREENING MAMM (CAD), BIL MR#: [id number] Acct: [id number] Name: GABONINA B Rep #: [id number] : 1955 F 63 From: Jaya Mac MD PCP: Nina Jiménez DO Status: REG CLI Study: SCREENING MAMM (CAD), BILAT Date of Exam: 08/04/18 Exam# [id number] Ordering Dr: Nina Jiménez DO MAMMOGRAPHY - [...] delay biopsy of a clinically suspicious abnormality. [id number] Electronically Signed: Jaya Mac MD at 9:12 EST Tel [phone], Service support , CC: Nina Jiménez DO Vice President Process: Signed KNEE 1 OR 2 VIEWS Observed: 07/21/2018 Status: F Source: [place] 1:17 PM [facility] REPOSITORY [facility] Imaging Services [address] [place] [address] Knee 1 or 2 Views MR#: [id number] Acct: [id number] Name: NINA AYON Rep #: [id number] : 1955 F 63 From: Clayton Newman MD PCP: Nina Jiménez DO Status: REG CLI Study: Knee 1 or 2 Views Date of Exam: 07/21/18 Exam# [id number] Ordering Dr: Nina Jiménez DO STUDY: X-RAY [...] Service support , CC: Nina Jiménez DO Vice President Process: Signed KNEE 1 OR 2 VIEWS Observed: 07/21/2018 Status: F Source: [place] 1:17 PM [facility] REPOSITORY [facility] Imaging Services [address] [place] [address]85 Knee 1 or 2 Views MR#: [id number] Acct: [id number] Name: GABONINA B Rep #: [id number] : 1955 F 63 From: Clayton Newman MD PCP: Nina Jiménez DO Status: REG CLI Study: Knee 1 or 2 Views Date of Exam: 07/21/18 Exam# [id number] Ordering Dr: Nina Jiménez DO STUDY: X-RAY [...] Service support , CC: Nina Jiménez DO Vice President Process: Signed 12 LEAD ELECTROCARDIOGRAM Observed: 04/22/2018 Status: F Source: [place] 1:28 PM [facility] REPOSITORY [facility] Cardiovascular Services [address] [place] [address] 12808 12 Lead EKG 04/19/18 1456 MR#: [id number] Acct: [id number] Name: NINA AYON Rep #: [id number] : 1955 62 From: Bright Peng MD [...] atrial enlargement Borderline ECG Confirmed by BRIGHT EPNG ([id number]), technical writer and editor OBDULIO PURDY ([id number]) on 04/22/2018 1:27:45 PM Referred By: JOHN Confirmed By:BRIGHT PENG 04/22/18 1327 Date Bright Peng MD CC: Nina Jiménez DO; Cedric Sylvester MD Signed EMERGENCY DEPARTMENT Observed: 04/19/2018 Status: F Source: [place] SUMMARY 5:01 PM [facility] REPOSITORY [facility] Medical Records Department [address] [place] [address] Emergency Department Summary 04/19/18 1653 MR#: [id number] Acct: [id number] Name: NINA AYON Rep #: [id number] : 1955 62 From: Cedric Sylvester MD [...] pleuritic component This note was generated with Sharetribe dictation software. It may contain incorrect words, [...] your Primary Care Provider. Call [facility] ([phone]) or report to the closest Emergency Room. Call 911 if necessary. 04/19/18 1701 <Electronically signed by Cedric Sylvester MD> Date Cedric Sylvester MD Cosigner Signature (If Indicated): Date CC: Nina Jiménez DO LIVER PROFILE Collected: 04/19/2018 Status: F Source: [place] 3:39 PM [facility] REPOSITORY TYPE CODE TESTS RESULT OUT OF [...] 0.07 Performed By: #### L500.3400, L501.2450 #### [facility] [address] [place], [place], [id number] LIPASE Collected: 04/19/2018 Status: F Source: [place] 3:39 PM [facility] REPOSITORY TYPE CODE TESTS RESULT OUT OF RANGE REFERENCE UNITS LAB L501.2450 73-393 U/L Normal LIPASE 127 Performed By: #### L500.3400, L501.2450 #### [facility] [address] [place], [place], [address] PROTHROMBIN TIME W/INR Collected: 04/19/2018 Status: F Source: [place] 3:10 PM [facility] REPOSITORY TYPE CODE TESTS RESULT OUT OF RANGE REFERENCE UNITS LAB L300.4150 11.7-14.9 SECONDS High PROTIME 17.9 LAB L300.4200 Normal INR 1.5 Performed By: #### L300.3900 #### [facility] [address] [place], [place], [address] BASIC METABOLIC Collected: 04/19/2018 Status: F Source: [place] PROFILE (BMP) 3:10 PM [facility] REPOSITORY TYPE CODE TESTS RESULT OUT OF [...] 9 Performed By: #### L500.2500, L501.4010 #### [facility] [address] [place], [place], [address] TROPONIN-I Collected: 04/19/2018 Status: F Source: [place] 3:10 PM [facility] REPOSITORY TYPE CODE TESTS RESULT OUT OF RANGE REFERENCE UNITS LAB L501.4010 <0.045 ng/mL Normal < 0.015 TROPONIN-I Result Comment: TROPONIN-I EXPECTED VALUES <0.045 Negative 0.045 - 0.590 Consistent with Cardiac Damage > OR = 0.600 Critical Value Not every elevated troponin is indicative of NV. These values should be used with clinical judgement in examining the patient's clinical picture for diagnosis. To establish a diagnosis of NV versus myocardial injury, there must be a demonstrated rise and/or fall in the troponin values, in addition to ischemic symptoms, EKG changes, new regional wall motion abnormality, and/or angiographical evidence. PLEASE NOTE: REFERENCE RANGES EDITED 17 Performed By: #### L500.2500, L501.4010 #### [facility] [place], [address] CBC W/DIFF, AUTOMATED Collected: 04/19/2018 Status: F Source: [place] 3:10 [facility] REPOSITORY TYPE CODE TESTS RESULT OUT OF [...] Lymph 1.31 Performed By: #### L100.0100 #### [facility] [address] [facility] [place], [address] CHEST 1 VIEW Observed: 04/19/2018 Status: F Source: [place] (PORTABLE) 3:05 PM [facility] REPOSITORY [facility] Imaging Services [address] [place] [address] Chest 1 View (Portable) MR#: [id number] Acct: [id number] Name: NINA AYON Rep #: [id number] : 1955 F 62 From: Dolly Hardy MD PCP: Nina Jiménez DO Status: PRE ER Study: Chest 1 View (Portable) Date of Exam: 04/19/18 Exam# [id number] Ordering Dr: Cedric Sylvester MD STUDY: X-RAY [...] CC: Nina Jiménez DO; Cedric Sylvester MD Vice President Process: Signed CARDIOLOGY VISIT Observed: 02/10/2018 Status: F Source: [place] REPORT 3:06 PM [facility] REPOSITORY [facility] [place] [address] 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 The results are as noted below. Interpretation [...] We will continue to monitor this. 7. termination clerk (current) use of anticoagulants Z79.01 Plan If [...] (valve) insufficiency I36.1 Paroxysmal atrial fibrillation I48.0 termination clerk (current) use of anticoagulants Z79.01 Anxiety F41.9 Coding Level of Care Code Off vis,est,level 3 Diagnoses Abnormal stress test R94.39 Essential hypertension I10 Hyperlipidemia, unspecified hyperlipidemia type E78.5 Nonrheumatic mitral valve regurgitation I34.0 Nonrheumatic tricuspid (valve) insufficiency I36.1 Paroxysmal atrial fibrillation I48.0 senior care (current) use of anticoagulants Z79.01 Anxiety F41.9 02/10/18 1506 <Electronically signed by Dusty MORALES> Date Dusty Snider NPMarisa Daltonjenny Signature: Date (if applicable) CC: Nina Jiménez CBC-COMPLETE BLOOD CNT Collected: 02/10/2018 Status: F Source: [place] NO DIFF 11:44 AM [facility] REPOSITORY TYPE CODE TESTS RESULT OUT OF [...] By: #### L100.0500, L300.3900, L300.4310, L500.2500 #### [facility] [address] [place], [place], [address] PROTHROMBIN TIME W/INR Collected: 02/10/2018 Status: F Source: [place] 11:44 AM [facility] REPOSITORY TYPE CODE TESTS RESULT OUT OF RANGE REFERENCE UNITS LAB L300.4150 11.7-14.9 SECONDS High PROTIME 21.0 LAB L300.4200 Normal INR 1.8 Performed By: #### L100.0500, L300.3900, L300.4310, L500.2500 #### [facility] [address] [place], [place], [address] PARTIAL THROMBOPLAST Collected: 02/10/2018 Status: F Source: [place] TIME 11:44 AM [facility] REPOSITORY TYPE CODE TESTS RESULT OUT OF REFERENCE UNITS RANGE LAB L300.4310 24.1-36.2 Seconds High PTT 37.7 Performed By: #### L100.0500, L300.3900, L300.4310, L500.2500 #### [facility] [address] [place], [place], [address] BASIC METABOLIC Collected: 02/10/2018 Status: F Source: [place] PROFILE (BMP) 11:44 AM [facility] REPOSITORY TYPE CODE TESTS RESULT OUT OF [...] By: #### L100.0500, L300.3900, L300.4310, L500.2500 #### [facility] [address] [place], [place], [address] CHEST PA AND LATERAL Observed: 02/10/2018 Status: F Source: [place] 11:29 AM [facility] HOSPITAL REPOSITORY [facility] Imaging Services [address] [place] [address] Chest PA and Lateral MR#: [id number] Acct: [id number] Name: NINA AYON Rep #: [id number] : 1955 F 62 From: Leslye Sue MD PCP: Nina Jiménez DO Status: REG CLI Study: Chest PA and Lateral Date of Exam: 02/10/18 Exam# [id number] Ordering Dr: Haile Mckee MD STUDY: X-RAY [...] CC: Nina Jiménez DO; Haile Mckee MD Vice President Process: Signed STRESS REPORT Observed: 02/04/2018 Status: F Source: [place] 2:05 PM [facility] HOSPITAL REPOSITORY [facility] Cardiovascular Services [address] [place] [address] MR#: [id number] Acct: [id number] Name: NINA AYON Rep #: [id number] : 1955 62 From: Haile Mckee MD [...] 65 %. This note was generated with Refinder by Gnowsisation software. It may contain incorrect words, spelling, and punctuation that were not noted in checking the note before signing. 02/04/18 1405 <Electronically signed by Haile Mckee MD> Date Haile Mckee MD CC: Nina Jiménez DO; Haile Mckee MD Date Dictated: 02/04/18 1354 Date Transcribed: 02/04/18 1354 Vice President Process: PM Signed CARDIOLOGY VISIT Observed: 01/09/2018 Status: F Source: [place] REPORT 11:03 AM [facility] REPOSITORY [facility] 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 The results are as noted below. Interpretation [...] medical management and follow-up. Orders Orders: 7. senior care current use of anticoagulant Z79.01 Plan Again [...] Essential hypertension I10 Hypertension type: essential hypertension senior care current use of anticoagulant Z79.01 Coding Level of Care Code Off vis,est,level 4 Diagnoses Chest pain, unspecified type R07.9 Chest pain type: unspecified Paroxysmal atrial fibrillation I48.0 Nonrheumatic mitral valve insufficiency I34.0 Non-rheumatic tricuspid valve insufficiency I36.1 Hyperlipidemia, unspecified hyperlipidemia type E78.5 Hyperlipidemia type: unspecified Essential hypertension I10 Hypertension type: essential hypertension senior care current use of anticoagulant Z79.01 01/09/18 1103 <Electronically signed by Haile Mckee MD> Date Haile Mckee MD Cosign Signature: Date (if applicable) CC: Nina Jiménez DO 12 LEAD EKG PERFORMED Observed: 01/09/2018 Status: F Source: [place] BY [facility] 10:26 AM [facility]OSPITAL REPOSITORY [facility] [address] [place] [address] 12 Lead EKG performed by [facility] 01/09/181024 MR#: [id number] Acct: [id number] Name: NINA AYON Rep #: [id number] : 1955 62 From: Haile Mckee MD Attending Dr: Haile Mckee MD Status: DEP AMB Ordering Dr: Haile Mckee MD Date: 01/09/18 Location: [facility] Sex: F C Admitted: [facility]/12 Lead EKG performed by [facility] ECG Report Interpretation Sinus Rhythm - occasional ectopic ventricular beat Electronically signed on 01/09/2018 at 12:24 by Haile Mckee 01/09/18 1227 Date Haile Mckee MD CC: Nina Jiménez DO Date Dictated: 01/09/18 102 Date Transcribed: 01/09/18 102 Vice President Process: PM Signed ALLERGIES ALLERGIES DATE TYPE / CODE NAME / CODE REACTION SEVERITY SOURCE Drug pneumococcal Unknown Unknown [place] 8 Allergy/802037171( vaccine/[id number] Community SNOMED CT) 6(RXNORM) Hospital Repository Miscellaneous seasonal Itching NV [place] 8 Allergy/072811137( allergies Community SNOMED CT) Hospital Repository ENCOUNTERS ENCOUNTERS ADMIT/DISCHARGE ACCOUNT ADMITTING ENCOUNTER LOCATION SOURCE NUMBER CLASS 09/10/2018 3953 Ambulatory Building:[facility] OHIP Practices Repository 08/04/2018/ [id number] Ambulatory BMSBuilding:B [place] 8 7 [facility] 08/04/2018 [id number] Ambulatory [place] Matthew 6 [facility] ing:OPBI Repository 07/21/2018 [id number] Ambulatory [place] 1 [facility] ing:HPRAD Repository 07/21/2018 [id number] Ambulatory Matthew Matthew 5 [facility] ing:RAD.FUTUR Repository E 04/19/2018/ [id number] Emergency Matthew Matthew 8 0 [facility] ing:ED Repository 03/12/2018 [id number] Ambulatory BMSBuilding:B [place] 0 [facility] Repository 03/11/2018/ [id number] Ambulatory Matthew Matthew 8 2 [facility] ing:CLSP Repository 03/11/2018 [id number] Ambulatory BMSBuilding:W Matthew 4 [facility] Repository 02/10/2018 [id number] Ambulatory [place] Matthew 8 [facility] ing:RAD Repository 02/10/2018/ [id number] Ambulatory BMSBuilding:B [place] 8 1 [facility] Repository 02/04/2018 [id number] Ambulatory [place] Eugene 5 [facility] ing:CVS Repository 02/04/2018 [id number] Ambulatory BMSBuilding:W [place] 3 [facility] Repository 01/09/2018/ [id number] Ambulatory BMSBuilding:B [place] 8 3 [facility] Repository 01/07/2018 [id number] Ambulatory BMSBuilding:B [place] 0 [facility] Repository FUNCTIONAL STATUS FUNCTIONAL STATUS No Functional Status Records FoundEQUIPMENT EQUIPMENT No Equipment Records FoundPAYERS PAYERS ENCOUNTER GUARANTOR PAYER SUBSCRIBER SOURCE 09/10/2018 Nina Sarkar Figueroa Daniel LoweryB: OHIP Practices GaboDOB: Insurance:[place] [id number] Repository [facility] Number: [place], [place] [id number] [id number]: [phone]: ([phone]) Date:5202-91-53Estx [phone] (HP) [phone] Name:[facility] Box ()Tel: [phone], [place] [phone] () 636[address]PQ: 09/10/2018 Secondary Nina B OHIP Practices Insurance:Donta AyonDOB: Repository /[facility] Number: [id number] [place] ve Date:2005-08-19 - [facility] [place] 1047-56-99Byvd [address]Pex: Name:[facility] Box ~([phone] [place] 30 ) [phone]: 08/04/2018 NINA B Primary FIGUEROA L MEIERDOB: [place] [id number] Insurance:[facility] [id number] Number: Repository [id number]: 330 [id number] [phone] (HP) Date:0967-27-28[address]ZBXPTJK, [place] [address]CC: 08/04/2018 Secondary NOT GIVENUNK [place] Insurance:SELF PAY [facility] Number: Effective Repository Date:2018-08-04 08/04/2018 NINA B Primary FIGUEROA L MEIERDOB: [place] [id number] Insurance:[facility] [id number] Number: Repository [address]Sks: 330 [id number] [phone] (HP) Date:2208-04-45ZR [address]UBFYKZ[address], [place] [address]VT: 08/04/2018 Secondary NOT GIVENUNK [place] Insurance:SELF PAY [facility] Number: Effective Repository Date:2018-07-03 07/21/2018 NINA B Primary FIGUEROA L MEIERDOB: [place] [id number] Insurance:[facility] [id number] Number: Repository [id number]: 330 [id number] [phone] () Date:0464-31-82MO [facility] 232089KJTTQJW, [place] [address]HG: 07/21/2018 Secondary NOT GIVENUNK [place] Insurance:SELF PAY [facility] Number: Effective Repository Date:2018-07-21 07/21/2018 NINA B Primary FIGUEROA L MEIERDOB: [place] [id number] Insurance:[facility] [id number] Number: Repository [id number]: 330 [id number] [phone] (HP) Date:2652-04-58UR [facility] 294033JDAGZMJ, [place] [address]YM: 07/21/2018 Secondary NOT GIVENUNK [place] Insurance:SELF PAY [facility] Number: Effective Repository Date:2018-07-21 04/19/2018 NINA B Primary FIGUEROA L MEIERDOB: [place] [id number] Insurance:[facility] [id number] Number: Repository [id number]: 330 [id number] [phone] (HP) Date:8124-27-80DO [facility] [address]476ZTNVRYI, [place] [address]HJ: 04/19/2018 Secondary NOT GIVENUNK [place] Insurance:SELF PAY [facility] Number: Effective Repository Date:2018-04-19 03/12/2018 NINA B Primary FIGUEROA L MEIERDOB: [place] [id number] Insurance:[facility] [id number] Number: Repository [id number]: 330 [id number] [phone] (HP) Date:7320-36-71OS [address]FRVMOAN, [place] [address]WM: 03/12/2018 Secondary NOT GIVENUNK [place] Insurance:SELF PAY [facility] Number: Effective Repository Date:2018-03-12 03/11/2018 NINA B Primary FIGUEROA L MEIERDOB: [place] [id number] Insurance:[facility] [id number] Number: Repository [id number]: 330 [id number] [phone] (HP) Date:4869-62-21AV [address] [place] [address]IE: 03/11/2018 Secondary NOT GIVENUNK [place] Insurance:SELF PAY [facility] Number: Effective Repository Date:2018-02-05 03/11/2018 NINA B Primary FIGUEROA L MEIERDOB: [place] [id number] Insurance:[facility] [id number] Number: Repository [id number]: 330 [id number] [phone] () Date:4759-71-30NV [address]TZBDDHI, [place] [address]ZK: 03/11/2018 Secondary NOT GIVENUNK [place] Insurance:SELF PAY [facility] Number: Effective Repository Date:2018-03-11 02/10/2018 NINA B Primary FIGUEROA L MEIERDOB: [place] [id number] Insurance:[facility] [id number] Number: Repository [id number]: 330 [id number] [phone] (HP) Date:4915-77-14XA [address]TXPSMEU, [place] [address]LN: 02/10/2018 Secondary NOT GIVENUNK [place] Insurance:SELF PAY [facility] Number: Effective Repository Date:2018-02-10 02/10/2018 NINA Kaur Primary FIGUEROA L MEIERDOB: [place] [id number] Insurance:[facility] [id number] Number: Repository [id number]: 330 [id number] [phone] () Date:9957-04-20MA [facility] 377910WDCZAVF, [place] [address]AI: 02/10/2018 Secondary NOT GIVENUNK [place] Insurance:SELF PAY [facility] Number: Effective Repository Date:2018-02-10 02/04/2018 NINA Kaur Primary FIGUEROA L GABODOB: Matthew [id number] Insurance:[facility] [id number] Number: Repository [id number]: [phone] [id number] [phone] () Date:[id number], [place] [address]RO: 02/04/2018 Secondary NOT GIVENUNK Matthew Insurance:SELF PAY [facility] Number: Effective Repository Date:2018-01-09 02/04/2018 NINA Kaur Primary FIGUEROA L MEIERDOB: Matthew [id number] Insurance:[facility] [id number] Number: Repository [id number]: [id number] [phone] (HP) Date:[id number] [facility] [place], [place] [address]FE: 02/04/2018 Secondary NOT GIVENUNK Eugene Insurance:SELF PAY [facility] Number: Effective Repository Date:2018-02-04 01/09/2018 Jeramy Sanchez Primary FIGUEROA L MEIERDOB: Eugene [id number] Insurance:[facility] [id number] Number: Repository [id number]: [phone] [id number] [phone] () Date:[id number] [address], [place] [address]RT: 01/09/2018 Secondary NOT GIVENUNK Eugene Insurance:SELF PAY [facility] Number: Effective Repository Date:2018-01-09 01/07/2018 Jeramy Sanchez Primary FIGUEROA L MEIERDOB: Eugene [id number] Insurance:[facility] [id number] [id number] [place] [address] Number: Repository [id number]: [phone] [id number] [phone] () Date:[id number], [place] [address]JK: 01/07/2018 Secondary NOT GIVENUNK Eugene Insurance:SELF PAY [facility] Number: Effective Repository Date:2018-01-07 SOCIAL HISTORY SOCIAL HISTORY No Social History Records FoundFAMILY HISTORY FAMILY HISTORY No Family History Records FoundADVANCE DIRECTIVES ADVANCE DIRECTIVES No Advanced Directives Records FoundINFORMATION SOURCE INFORMATION SOURCE DATE CREATED AUTHOR AUTHOR'S ORGANIZATION 09/10/2018 [facility]
== END ==
PROVIDERS: Family Provider Internal Medicine; PCP Internal Medicine; Visit Provider Internal Medicine
DX: Z12.31 Encounter for screening mammogram for malignant neoplasm of breast (principal); N95.1 Menopausal and female climacteric states
CPT/HCPCS: 77063; 77067

== ENCOUNTER → 2019-09-04 11:22 | Outpatient (CLI) | payer OTHER, SELFPAY ==
[2019-02-02 15:09] VITALS: BMI 38.3
== END ==
PROVIDERS: Family Provider Internal Medicine; PCP Internal Medicine; Referring Provider Internal Medicine Cardiovascular Disease; Visit Provider Internal Medicine Cardiovascular Disease
DX: I48.0 Paroxysmal atrial fibrillation (principal)
CPT/HCPCS: 93225; 93226

== ENCOUNTER → 2020-01-26 13:13 | Outpatient (CLI) | payer OTHER, SELFPAY ==
[2019-02-02 15:09] VITALS: BMI 38.3
--- NOTE | 2020-01-26 13:15 | ECHOD_ITS ---
Reason For Study: AFIB/FLUTTER Procedure This was a 2D Doppler, Color Flow transthoracic echocardiogram. The study was technically difficult. Due to arrhythmia. Exam performed in department. Left Ventricle Normal LV size. Left ventricular systolic function is normal. The estimated ejection fraction is 65 %. Unable to assess diastolic dysfunction. No regional wall motion abnormalities noted. Right Ventricle Normal RV size. Normal systolic function. Atria The left atrium is moderately enlarged. The right atrium is severely enlarged. No doppler evidence for ASD. Mitral Valve There is no mitral annular calcification. Normal mitral valve. Mild (1+) mitral valve insufficiency. Tricuspid Valve Normal tricuspid valve. Mild tricuspid valve insufficiency. Right ventricular systolic pressure estimated to be 27 mmHg. Aortic Valve Trisinus/trileaflet aortic valve. Mild focal aortic valve thickening. Pulmonic Valve The pulmonic valve is not well visualized. Great Vessels Normal sized aortic root. Pericardium/Pleural No pericardial effusion. MMode/2D Measurements & Calculations LVIDd: 5.0 cm IVSd: 1.0 cm Ao root diam: 3.4 cm LVIDs: 3.7 cm LVPWd: 1.0 cm RVDd: 3.6 cm FS: 25.4 % LAV(MOD-bp): 79.2 ml LA A4 area: 22.4 cm2 LA dimension(2D): 4.8 cm LAV(MOD-bp) Indexed: 36.6 ml/m2 LAV(MOD-sp2): 85.3 ml LAV(MOD-sp4): 72.4 ml RA A4 area: 25.8 cm2 Doppler Measurements & Calculations MV E max ashish: 90.0 cm/sec Ao V2 max: 119.5 cm/sec LV V1 max: 82.6 cm/sec Ao max P.7 mmHg LV V1 max P.7 mmHg PA V2 max: 88.2 cm/sec TR max ashish: 249.4 cm/sec TR max P.6 mmHg Interpretation Summary The study was technically difficult. Left ventricular systolic function is normal. The estimated ejection fraction is 65 %. The left atrium is moderately enlarged. The right atrium is severely enlarged. Mild (1+) mitral valve insufficiency. Mild tricuspid valve insufficiency. Mild focal aortic valve thickening. Right ventricular systolic pressure estimated to be 27 mmHg. Unable to assess diastolic dysfunction. Ordering Physician: Haile Mckee Referring Physician: Nina Jiménez Performed By: Amy Sethi, RDCS, RVT
== END ==
PROVIDERS: PCP Internal Medicine; Referring Provider Internal Medicine Cardiovascular Disease; Visit Provider Internal Medicine Cardiovascular Disease
DX: I48.0 Paroxysmal atrial fibrillation (principal); I34.0 Nonrheumatic mitral (valve) insufficiency; I36.1 Nonrheumatic tricuspid (valve) insufficiency
CPT/HCPCS: 93306

== ENCOUNTER 2020-05-25 13:30 | Outpatient (RCR) | payer OTHER, SELFPAY ==
[2019-02-02 15:09] VITALS: BMI 38.3
[2020-02-04 16:14] VITALS: BMI 39.2
--- NOTE | 2020-03-08 13:49 | HP.PTEVAL ---
Patient's Visit Information NINA AYON is a 64 year old F referred to Physical Therapy by Dr. Nina Jiménez DO with a diagnosis of Bilateral Knee Pain- Oa. Date of Evaluation: 03/08/20 Physical Therapist: Fidelia Morrison DPT - Visit Plan Frequency: 2x /Week Duration: 4 Weeks Plan: Aquatic-focus on LE and core strength/stabilization with functional mobility - Subjective Patient reports that the left knee is worse than the right. She has had injections in both knees-almost 2 weeks ago- stem cell injections- 3 of them in a row- feels that they have helped the pain but wants more mobility. Scared of TKR saw Dr. Toro- with A-fib he does not really want to operate but he would if she wanted to. Does report falling- not in the house but more outside in the flower beds. Left Worst: 5/10 Agg: incline, bending, being up on her feet Best: 0/10 Eases: get off of it, ice, elevation. Reports grinding. Right: no pain in the last month. Pain is located in the knee- radiates to the calf and into the quad- does have leg cramps- takes a suppliment to help. Does use a cane as needed. No N/T in the LE. Stairs: are a problem- is doing single step at a time- getting better. X-rays: showed OA none recent. Sleep: disturbed but its 50% better. PMHx: A-fib, HTN Meds: Metaprolol, amolodipine, hydrochloro, protonix,cilitopram - Objective Posture:FH, RS- can correct but does not maintain. Gait: antalgic- decreased stanceon the left le with poor heel/toe pattern bilaterally. Stairs: recip with 2 HR and poor control with descent and uses UE A for propulsion- reports pain. HR/TR: able no pain with ue a. SLS: unable to sls can weight shift but loses balance easily. Palpation: tender along medial and lateral joint line bilaterally. ROM: Left: 0-90 degrees Right: 0-115 degrees with pain end range flexion bilaterally. Strenght: Core: fair minus, Hip: 4/5 throughout Knee: 4+/5 with pain, Ankle: 5/5 all bilaterally. Sensation: wnl to gross touch in LE. Reflex: wnl. Flex: HS: moderate, Gastroc: mod - Goals Goal 1:: Patient will be I with HEP and progression Goal Time Frame: 4-6 Weeks Goal 2:: Patient will ambulate >300 feet with a normalized gait pattern Goal Time Frame: 4-6 Weeks Goal 3:: Patient will asc/desc 8 recip with a normal pattern and 1 HR Goal Time Frame: 4-6 Weeks Goal 4:: Patient will demo 0-115 degrees of ROM in bilateral knees Goal Time Frame: 4-6 Weeks - Rehabilitation Potential Physical Therapy Diagnosis: Patient presents with hypomobility- she has decreased ROM, strength, flex and muscular endurance leading to abnormal gait and pain with ADL's. Rehabilitation Potential: Fair - Anticipated Interventions Patient/Client Instruction: Educate patient on: Benefits of Fitness Program Therapeutic Exercise to Include: Strength training, Endurance training, Balance training, Agility training, Body mechanics, Postural training, Flexibilty training, Gait and locomotor training, In an aquatic setting, Dynamic Lumbar Stabilization For the Purpose of:: To improve muscle performance and motor function Thank you for the opportunity to evaluate your patient. For Medicare and Medicare HMO plans, please review the plan of care and approve it. It will need to be FAXED BACK to us at [phone] for Medicare purposes. For Medicare only, by signing this I certify the plan of care. Please let me know if there are questions or concerns regarding this plan of care. Physician Signature: Date:
--- NOTE | 2020-04-13 15:21 | HP.PTREVAL ---
Dr. Nina Jiménez, DO, It has been my pleasure to treat NINA AYON over the last 10 visits for Bilateral Knee Pain- Oa. Please see the progress note below for an update on the physical therapy plan of care! Subjective: Patient reports that she feels that she is doing better- she was unaware of how much body movement goes into. Is able to do now do reciprocal pattern on stairs. She has a lot going on and would love to continue to work in the pool Objective/Function: Posture:FH, RS- can correct but does not maintain. Gait: antalgic-poor heel/toe pattern bilaterally. Stairs: recip with 1 HR-reports pain. HR/TR: able no pain with ue a. SLS: weight shift only. Palpation: tender along medial and lateral joint line bilaterally. ROM: Left: 0-100 degrees Right: 0-115 degrees with pain end range flexion bilaterally. Strenght: Core: fair minus, Hip: 4+/5 throughout Knee: 4+/5 with pain, Ankle: 5/5 all bilaterally. Sensation: wnl to gross touch in LE. Reflex: wnl. Flex: HS: moderate, Gastroc: mod Plan Plan: Continue 1x a week for 6 weeks Goals Goal 1:: Patient will be I with HEP and progression Goal Time Frame: 4-6 Weeks Goal Progress: Progressing Goal 2:: Patient will ambulate >300 feet with a normalized gait pattern Goal Time Frame: 4-6 Weeks Goal Progress: Progressing Goal 3:: Patient will asc/desc 8 recip with a normal pattern and 1 HR Goal Time Frame: 4-6 Weeks Goal Progress: Progressing Goal 4:: Patient will demo 0-115 degrees of ROM in bilateral knees Goal Time Frame: 4-6 Weeks Goal Progress: Progressing Anticipated Interventions Patient/Client Instruction: Educate patient on: Benefits of Fitness Program Therapeutic Exercise to Include: Strength training, Endurance training, Balance training, Agility training, Body mechanics, Postural training, Flexibilty training, Gait and locomotor training, In an aquatic setting, Dynamic Lumbar Stabilization For the Purpose of:: To improve muscle performance and motor function Please do not hesitate to contact me at [phone] by phone or if you have questions or concerns regarding this new plan of care! Sincerely, Fidelia Morrison DPT
--- NOTE | 2020-07-28 11:34 | HP.PT.NRP ---
GREG AYON was seen in my office for initial evaluation on 03/08/20. The following Plan of Care was established for this patient: Initial Frequency: 2x /Week Initial Duration: 4 Weeks Patient/Client Instruction: Educate patient on: Benefits of Fitness Program Therapeutic Exercise to Include: Strength training, Endurance training, Balance training, Agility training, Body mechanics, Postural training, Flexibilty training, Gait and locomotor training, In an aquatic setting, Dynamic Lumbar Stabilization For the Purpose of:: To improve muscle performance and motor function This patient was last seen in our office . Pertinent comments regarding their Physical therapy will appear below: Patient has not returned to PT in over 6 weeks- appropriate for discharge and return to MD for further evaluation. At this point I will be discontinuing this patient from physical therapy. I would be happy to see this patient again in the future if found appropriate by the physician. Thank you! KAMARI FernandezT
== END 2020-05-25 19:00 | disposition home or self-care (01) ==
LOC: PT 13:30
PROVIDERS: PCP Internal Medicine; Referring Provider Internal Medicine; Visit Provider Internal Medicine
DX: M25.562 Pain in left knee (principal); M25.561 Pain in right knee; M19.90 Unspecified osteoarthritis, unspecified site
CPT/HCPCS: 97113; 97162; 97164

== ENCOUNTER → 2020-05-31 08:08 | Outpatient (CLI) | payer OTHER, SELFPAY ==
[2020-05-19 14:32] VITALS: BMI 39.2
--- NOTE | 2020-05-31 08:09 | CT_ITS ---
STUDY: CT ABDOMEN AND PELVIS WITH CONTRAST REASON FOR EXAM: Female, 64 years old. UMBILICAL HERNIA,DIARRHEA RADIATION DOSAGE (If Supplied By Facility): CTDIvol = ( 18.25 ) mGy, DLP = ( 1195.62 ) mGycm TECHNIQUE: Transaxial images were obtained from the dome of the diaphragm to the symphysis pubis with oral contrast. Oral and amp;amp; IV Readi-CAT and amp;amp; 100mL Isovue-300 was administered. Sagittal and coronal images were reconstructed. Individualized dose optimization techniques were used for this CT. COMPARISON: 08/09/2017 FINDINGS: The visualized lung bases are unremarkable. The visualized portions of the heart are within normal limits. Normal liver. Normal gallbladder and extrahepatic biliary system. Normal spleen. Normal pancreas. Normal bilateral adrenal glands. Normal right kidney. Normal left kidney. There is a small hiatal hernia. Normal small intestine. There are multiple colonic diverticula consistent with diverticulosis. The appendix is visualized and appears normal. Normal abdominal aorta. Normal inferior vena cava. Normal retroperitoneum. Normal urinary bladder. 3 cm round umbilical hernia containing fat with the infiltration of the flat suggestive of inflammation. Normal osseous structures. CT/Abdomen/Pelvis WITH Contrast IMPRESSION: 3 cm lumbar hernia containing fat with inflammation. Electronically Signed: Steven Dillard MD at 12:26 EDT Tel , Service support ,
--- NOTE | 2020-05-31 08:09 | US_ITS ---
STUDY: ABDOMINAL ULTRASOUND - RIGHT UPPER QUADRANT REASON FOR VISIT: Female, 64 years old abd pain TECHNIQUE: Ultrasound evaluation of the right upper quadrant was performed with real-time and static elise-scale imaging. TECHNICAL QUALITY: Adequate. COMPARISON: 06/23/2014 FINDINGS: Liver: The liver measures 16.7 cm. There is normal echogenicity of the liver. The bile ducts are within normal limits. There is hepatic color flow. The direction of portal flow is hepatopetal. There is no demonstrated mass lesion. Gallbladder: Normal distended gallbladder. The gallbladder wall measures 2 mm. There is a negative sonographic Thrasher''s sign. There is no pericholecystic fluid. There are gallbladder polyps. Common Bile Duct (C.B.D.): The common bile duct measures 4 mm. Pancreas: Normal size of the head, body and tail of the pancreas. There is normal echogenicity of the pancreas. There is no demonstrated pancreatic mass or cyst. Right Kidney: Normal size of the right kidney. The right kidney measures 11.6 cm. Normal renal cortex. The right cortex measures 1.5 cm. 1.3 cm cyst in the midsection right kidney. There is no right hydronephrosis. US/Gallbladder IMPRESSION: Cholesterolosis. Electronically Signed: Steven Dillard MD at 12:33 EDT Tel , Service support ,
[2020-05-31 08:40] LABS: CREATININE FINGERSTICK 0.6 mg/dL (0.55-1.02); EGFR FINGERSTICK > 60.0000 mL/min (>60)
== END ==
PROVIDERS: PCP Internal Medicine; Referring Provider Surgery; Visit Provider Surgery
DX: K82.4 Cholesterolosis of gallbladder (principal); K45.8 Other specified abdominal hernia without obstruction or gangrene; K42.9 Umbilical hernia without obstruction or gangrene; R19.7 Diarrhea, unspecified
CPT/HCPCS: 74177; 76705; Q9967

== ENCOUNTER → 2020-06-27 16:30 | Outpatient (CLI) | payer OTHER, SELFPAY ==
[2020-06-15 10:32] VITALS: BMI 37.6
== END ==
PROVIDERS: PCP Internal Medicine; Visit Provider Anesthesiology
DX: Z20.828 Contact with and (suspected) exposure to other viral communicable diseases (principal)

== ENCOUNTER 2020-07-11 11:47 | Day surgery (SDC) | payer OTHER, SELFPAY ==
[2020-06-15 10:32] VITALS: BMI 37.6
[2020-06-24 13:58] LABS: Hematocrit 41.4 % (37-47); Hemoglobin 13.1 g/dL (12.0-15.0); Mean Corp Hgb Conc 31.6 g/dL (32-36); Mean Corpuscular Hgb 29.2 pg (27.0-32.0); Mean Corpuscular Volume 92.2 fL (81-99); Mean Platelet Vol. 11.1 fl (6.2-12.0); Platelet Count 222 K/mm3 (150-450); RBC Distribution Width CV 14.5 % (11.6-14.6); RBC Distribution Width SD 49.3 fl (35.1-43.9); Red Blood Count 4.49 M/mm3 (4.2-5.4); White Blood Count 6.7 K/mm3 (4.4-11.0)
[2020-06-24 14:26] LABS: Anion Gap 2 (5-15); BUN 14 mg/dL (7-18); BUN/Creat Ratio 17.5 RATIO (10-20); Calcium,Total 9.2 mg/dL (8.5-10.1); Chloride 106 mmol/L (98-107); EST Glomerular Filtration Rate 77 mL/min (>60); Est Glom Filt Rate - Afr Amer 93 mL/min (>60); Glucose 99 mg/dL (74-106); Potassium 4.5 mmol/L (3.5-5.1); Sodium Level 138 mmol/L (136-145)
[2020-06-24 14:29] LABS: Hemoglobin A1c 6.4 % (3.8-5.6)
--- NOTE | 2020-06-29 05:11 | HP_ITS ---
Intake Vital Signs 06/15/20 Height 5 ft 7 in 06/15/20 Weight: 240 lb 4 oz 06/15/20 BMI 37.6 06/15/20 BP 123/76 H 06/15/20 Blood Pressure Location Rt brachial 06/15/20 Position Sitting 06/15/20 Respiration 20 H 06/15/20 Pulse 67 06/15/20 Pulse Source NIBP 06/15/20 Temp 98.5 F 06/15/20 Temp Source Temporal 06/15/20 Pulse Oximetry (%) 97 06/15/20 Oxygen Delivery Method room air 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: Discuss Surgical Options Chief Complaint: discuss surgical options Director Of Partnerships Required: No Is patient in pain?: No Allergies pneumococcal vaccine [From Pneumovax-23] Allergy (Unknown, Verified 06/15/20 09:24) Unknown seasonal allergies Allergy (Mild, Uncoded 06/08/20 14:27) itching Medications amlodipine 5 mg tablet 5 mg PO DAILY #90 tab 09/29/19 [Rx Confirmed 06/15/20] hydrochlorothiazide 25 mg tablet 25 mg PO QDAY #90 tab 09/29/19 [Rx Confirmed 06/15/20] metoprolol succinate 100 mg tablet,extended release 24 hr 100 mg PO BID #180 tab 02/04/20 [Rx Confirmed 06/15/20] pantoprazole 40 mg tablet,delayed release 40 mg PO DAILY tab 02/04/20 [History Confirmed 06/15/20] rivaroxaban 20 mg tablet 20 mg PO DAILY #90 tab 05/04/20 [Rx Confirmed 06/15/20] citalopram 20 mg tablet 20 mg PO DAILY tab 05/19/20 [History Confirmed 06/15/20] metformin 500 mg tablet,extended release 24 hr 500 mg PO BID tab 05/19/20 [History Confirmed 06/15/20] Is last menstrual period known: No Post menopausal: Yes Patient : No PFSH Medical History GERD (gastroesophageal reflux disease) (Chronic) IBS (irritable bowel syndrome) (Chronic) Abdominal pain (Acute) Umbilical hernia (Acute) Diabetes (Acute) Essential hypertension (Chronic) Anxiety (Acute) Abnormal stress test (Acute) Chest pain (Acute) Hyperlipidemia (Chronic) Nonrheumatic mitral valve regurgitation (Chronic) Nonrheumatic tricuspid (valve) insufficiency (Chronic) Paroxysmal atrial fibrillation (Acute) nursing home (current) use of anticoagulants (Chronic) Cholesterolosis (Acute) Hypertension (Inactive) Surgical History Hx of hand surgery (Acute) Hx of colonoscopy (Acute) History of left heart catheterization (Chronic 03/11/18) Family History Father CHF (congestive heart failure) Asthma Hypertension Heart disease Son Asthma Other Diabetes Parkinsons Social History (Updated 06/15/20 @ 11:[address] Larry Barnes MD) Smoking Status: Never smoker alcohol intake: never substance use type: does not use caffeine: Yes what type of physical activity do you participate in: none frequency: does not exercise HPI HPI HPI: GREG AYON, is a 65 F who presents to the office today for HPI HPI Surgical H&P: Yes HPI: GREG AYON, is a 65 F who presents to the office today for ventral hernia. The patient has a ventral hernia just below her umbilicus. She reports this is been there for a long time it is starting to bother her especially with bending over. Patient does not report any radiation of pain. No fevers or chills. No nausea or vomiting. ROS General General: Yes weight change and fatigue; no appetite, colon cancer, breast cancer or weakness HEENT HEENT: No difficulty swallowing, eye injury, eye surgery, swollen glands or hoarseness Endo Endocrine: Yes diabetes mellitus; no thyroid disease, thyroid cancer, Hair loss, heat intolerance or cold intolerance Skin Skin: No rash or changing moles Musc Musculoskeletal: Yes back problems and arthritis; no rheumatoid arthritis, gout or joint pain Cardio Cardiovascular: Yes atrial fibrillation and high blood pressure; no murmur, pacemaker, heart disease, heart attack, heart stent, palpitations, shortness of breat with exertion or chest pain Psych Psychiatric: Yes depression and anxiety Resp Respiratory: Yes shortness of breath, Yes sleep apnea, No cough, No COPD, No asthma, No emphysema, No wheezing Gastro Gastrointestinal: Yes abdominal pain, Yes nausea or vomiting, Yes diarrhea, No constipation, No blood in stool, Yes acid reflux, Yes hemorrhoids, No ulcers, No gallbladder problem, No black,tarry stools Barrett Hematologic: Yes blood thinners, No blood disorders, Yes bleeding, No anemia, No blood clots Neuro Neurologic: Yes numbness, Yes tingling, No weakness Exam Const General: cooperative Orientation: alert, oriented x3 HENMT Head: normal to inspection Ears: hearing grossly normal bilaterally Eyes General: appearance normal, both eyes and all related structures Visual Harper: normal visual harper by confrontation Neck Neck: normal visual inspection Chest Chest palpation & inspection: normal inspection of the chest Resp Effort & Inspection: normal respiratory effort Auscultation: clear to auscultation bilaterally Cardio Rate: regular rate Rhythm: regular rhythm Heart Sounds: no murmurs GI Inspection: non-distended Palpation: soft, hernia (Reducible ventral hernia) ventral, nontender Musc Cervical Spine: normal cervical lordosis, cervical ROM normal Skin General: no rashes or lesions noted Neuro General: alert, oriented x3 Cranial Nerves: CN's II-XI intact bilaterally Cognition: normal cognition Extrem General: normal to inspection, full ROM Psych Appearance: grossly normal Affect: normal affect Assessment & Plan Problems 1. Ventral hernia without obstruction or gangrene K43.9 Plan The patient has a 3 cm ventral hernia. I discussed open versus robotic assisted laparoscopic hernia repair with her in detail. After a long discussion the patient did decide an open ventral hernia repair with mesh. I discussed mesh placement with her as well as the risks of bleeding, infection, injury to underlying organs. Patient understands the risks and is willing to proceed. We discussed the current risks associated with COVID-19. While it is understood that there is a community spread of COVID-19, the risk of elmira COVID-19 while at [facility] ([facility]) is very low; however, the risk cannot be completely mitigated because of the community spread of the disease. We discussed in detail the risk of exposure to and/or potential harm posed by the COVID-19 virus with having a surgery/procedure at this time versus the risk of delaying the surgery/procedure. It is not possible to know either the risk of delaying the surgery or procedure or chance of getting an infection with perfect accuracy, but a joint decision was made to proceed at this time with the scheduled surgery/procedure as indicated on the consent form. Patient was notified that we will need to comply with any screening or testing [facility] wishes to perform or that surgery may be delayed for any positive results. Larry Barnes MD Pager: [facility] [address] [place] [address], [address] [place] [address] Office: Coding Level of Care Code Off vis,est,level 4 Diagnoses Ventral hernia without obstruction or gangrene K43.9 ??Obstruction and gangrene presence: without obstruction or gangrene Time Spent (min) 45 I have re-examined the patient. There are no clinical changes since date of exam.
--- NOTE | 2020-07-06 11:08 | NURSING ---
pt states was ill with feverprior to OR scheduled 06/29/2020. COVID neg x2. has been rescheduled for surgery 07/11/[address] Barnes. new COVID ordered preop per protocol.
[2020-07-11] VITALS (9 sets, daily range): BP systolic 117–147; BP diastolic 68–96; PULSE 60–90; RESP 14–18; TEMP 36.2–37.1; O2SAT 93–100; BMI 37.8
--- NOTE | 2020-07-11 | HERN_PTH ---
PATIENT: GREG AYON LOC: [facility] U#:[id number] AGE/SX: 65/F ROOM: RE07/11/[address]: Dr. Larry Barnes MD : 1955 BED: DIS: 07/11/2020 SPEC #: [id number] RECD: 07/11/20 14:22 STATUS: CHERYL REAba #: [id number] [place]: 07/11/20 00:[address]: Larry Barnes DEPT: SURGICAL PATHOLOGY RECD BY: Kin Adams ENTERED: 07/12/20 08:05 SP TYPE: Hernia OTHR DR: Dr. Greg Jiménez, DO Tissues: HERNIA Procedures: Surgery Specimen Level II HEADER OPERATION: Ventral hernia repair with mesh PRE-OP DIAGNOSIS: Ventral hernia TISSUE SUBMITTED: Hernia sac MICROSCOPIC DIAGNOSIS Hernia sac: Mesothelial lined fibroadipose and fibroconnective, consistent with hernia sac with focal fibrosis and reactive changes. SJ:mk 07/13/20 MICROSCOPIC DESCRIPTION Slides are reviewed. GROSS DESCRIPTION Received in fixative is one container labeled with the patient's name and designated hernia sac. The specimen consists of two irregular fragments of mccormick-yellow fibrofatty tissue that in aggregate measure 6 x 5.5 x 3 cm. Serial sections reveal homogenous yellow cut surfaces. Credit Resolution Representative sections are submitted in one cassette. / AM:mk 07/12/20 TC:5 CPT: 15726
[2020-07-11 12:11] LABS: Bedside Glucose 113 mg/dL (70-110)
[2020-07-11] MEDS: Lactated Ringers 1,000 ML 100 ML IV ×2 (12:12→13:15)
[2020-07-11] MEDS: Cefazolin 2 GM in 0.9% Normal Saline 100 ML IV (12:33)
[2020-07-11] MEDS: Bupiv/Epi 0.25% 30 ML Vial (13:14)
--- NOTE | 2020-07-11 13:42 | PCM.OPRPT ---
Problem List (1) Ventral hernia Status: Acute Qualifiers: Obstruction and gangrene presence: without obstruction or gangrene Qualified Code(s): K43.9 - Ventral hernia without obstruction or gangrene Report of Operation Date of Procedure: 07/11/20 Pre-Operative Diagnosis: Ventral hernia Post-Operative Diagnosis: Same Surgery/Procedure Performed:: Ventral hernia repair with mesh Specimen's removed: Hernia sac Description of Procedure: Patient was brought back to the operating room and general anesthesia was induced. The abdomen was prepped and draped in usual sterile fashion. An incision was marked inferior to the umbilicus and anesthetized. A scalpel was used to make an incision and deepened it down to the hernia sac. The hernia sac was dissected free and open. The contents were reduced and the hernia sac was dissected free using electrocautery. The hernia sac was closed using a running 3-0 Vicryl suture. Next the fascia was elevated and the preperitoneal space was dissected free circumferentially. The hernia measured 1.5 cm. An [address] mesh was placed in the preperitoneal space and sutured to the anterior fascia using interrupted 2-0 PDS sutures. The area was then irrigated and suctioned dry and the defect was closed in a transverse fashion using interrupted 2-0 PDS suture. The subcutaneous tissue was irrigated and suctioned dry and the skin was closed with interrupted 3-0 Vicryl sutures as well as a running 4-0 Monocryl suture. Glue was applied. Dressing was then applied and the patient was taken to PACU in stable condition. Patient tolerated the procedure well. Grafts/Implants Used: [address] mesh - Admit VTE Documentation VTE Mechan Device Prophylaxis: SCD's
--- NOTE | 2020-07-11 13:46 | DCINST_ITS ---
Discharge Diet: Light diet - advance as tolerated Discharge Activity: Return to Normal Activity, May Not Drive - for 2-3 days or while taking narcotic pain meds., May Shower - with the bandage in place 1 day after surgery. Lifting Restrictions: 20 pounds for 6 weeks. Additional Activity Instructions:: Climbing stairs is fine, walking is encouraged. Sitting in bed may be uncomfortable. Sitting up using your lateral muscles (sitting up sideways) is usually more comfortable. Do not drive, work heavy equipment of sign legal documents for 24 hours. Pain medications may cause nausea, you should typically eat light foods as you take your pain medications. Pain medications may also cause constipation. If you have difficulty with this, discuss with your doctor. Call your doctor if your incision/area has: Continuous Slow Oozing, Sudden Increased Bleeding, Increased Pain/ Swelling, Increased Redness, Foul Smelling Discharge Call your doctor if you observe: Fever of 101 or Higher Suture Line Care: Avoid Pulling/Pushing, Avoid Pinching/Bending Change Dressing in (Days):: 3 Cleanse incision/area with: Keep Dressing Clean & Dry Allergies/Adverse Reactions: Allergies pneumococcal vaccine [From Pneumovax-23] Allergy (Unknown, Verified 06/22/20 13:08) Unknown seasonal allergies Allergy (Mild, Uncoded 06/22/20 13:08) itching Medications to take at Discharge pantoprazole 40 mg tablet,delayed release 40 mg PO DAILY tab 02/04/20 rivaroxaban 20 mg tablet 20 mg PO DAILY #90 tab 05/04/20 citalopram 20 mg tablet 20 mg PO DAILY tab 05/19/20 metformin 500 mg tablet,extended release 24 hr 500 mg PO DAILY tab 05/19/20 amlodipine 5 mg tablet 5 mg PO DAILY #90 tab 06/16/20 hydrochlorothiazide 25 mg tablet 25 mg PO QDAY #90 tab 06/16/20 metoprolol succinate 100 mg tablet,extended release 24 hr 100 mg PO BID #180 tab 06/16/20 Amlodipine [Norvasc] 2.5 mg PO QHS PRN 06/22/20 Ca/D3/Mag/Zinc/Aurelio/Dagoberto/Mgbor [Caltrate 600-D3-Min Chew Tab] 1 ea PO DAILY 06/22/20 Hydragen 1 cap PO DAILY 06/22/20 Acetaminophen/Codeine #3 [Tylenol#3] 1 tablet PO Q6H PRN PRN 3 Days #10 tablet 07/11/20 The following prescriptions were given: Acetaminophen/Codeine #3 [Tylenol#3] 1 tablet PO Q6H PRN PRN 3 Days #10 tablet PRN Reason: Pain Score 6-10 Transmission Status: Sent to [facility] Test Results: Test results from this visit will be discussed in further detail at your follow- up appointment, if applicable. Please Follow Up With: Larry Barnes MD When: Please call to schedule 2 week follow up appointment. [phone]
[2020-07-11] MEDS: Acetaminophen/Codeine #3 Tablet 1 TABLET PO (15:28)
== END 2020-07-11 16:41 | disposition home or self-care (01) ==
LOC: SDC 11:47 → AC 11:48
PROVIDERS: Anesthesiology; PCP Internal Medicine; Referring Provider Surgery; Visit Provider Surgery
PROC: (CPT 49560; principal; 2020-07-11 12:45)
DX: K43.9 Ventral hernia without obstruction or gangrene (principal); K21.9 Gastro-esophageal reflux disease without esophagitis; K58.9 Irritable bowel syndrome, unspecified; E11.9 Type 2 diabetes mellitus without complications; I10 Essential (primary) hypertension; F41.9 Anxiety disorder, unspecified; E78.5 Hyperlipidemia, unspecified; I08.1 Rheumatic disorders of both mitral and tricuspid valves; I48.0 Paroxysmal atrial fibrillation; Z79.84 Long term (current) use of oral hypoglycemic drugs; Z79.01 Long term (current) use of anticoagulants; Z79.899 Other long term (current) drug therapy; Z20.828 Contact with and (suspected) exposure to other viral communicable diseases
CPT/HCPCS: 00832; 49560; 49568; 36415; 80048; 82962; 83036; 85027; 87426; 88302; C9803; C1781; J2405

== ENCOUNTER → 2021-02-15 13:06 | Outpatient (CLI) | payer OTHER, SELFPAY ==
[2020-07-11 12:01] VITALS: BMI 37.8
--- NOTE | 2021-02-15 13:14 | VDLE_ITS ---
Reason For Study: LLE PAIN Procedure LEFT This is a venous duplex using B-mode, color CFV is compressible, spontaneous, phasic, flow and spectral Doppler. competent, and demonstrates normal Exam performed in department. augmentation. The exam was diagnostic. FV is compressible, spontaneous, phasic, competent and demonstrates normal augmentation. POP V is compressible, spontaneous, phasic, competent and demonstrates normal augmentation. T/P Trunk is compressible. PTV is compressible. LT PerV is compressible. SFJ is competent and measures 0.70 x 0.84 cm. GSV proximal thigh measures 0.71 x 0.79 cm. GSV at knee measures 0.61 x 0.63 cm. GSV INCOMPETENT throughout for greater than 0.5 seconds. SSV proximal calf is competent and measures 0.54 x 0.69 cm. VL/Venous Duplex US, Unilateral Interpretation Summary Deep veins of the left lower extremity are patent and compressible segmentally. There is no evidence of left lower extremity deep vein thrombosis. Valvular competence appears intac t within the proximal deep venous system on the left . The left great saphenous vein appears patent a nd compressible segmentally. The left sapheno-femoral junction is competent . The left great sa phenous vein appears segmentally incompetent. The left small saphenous vein is patent and competent. Ordering Physician: Gm Peguero Referring Physician: Nina Jiménez Performed By: Amy Sethi, RDCS, RVT
== END ==
PROVIDERS: PCP Internal Medicine; Referring Provider Surgery; Visit Provider Surgery
DX: I83.10 Varicose veins of unspecified lower extremity with inflammation (principal); I83.812 Varicose veins of left lower extremity with pain
CPT/HCPCS: 93971

== ENCOUNTER → 2021-05-09 13:14 | Outpatient (CLI) | payer OTHER, SELFPAY | PROVIDERS: PCP Internal Medicine; Visit Provider Nurse Practitioner Gerontology | DX: G47.10 Hypersomnia, unspecified (principal) | CPT/HCPCS: 95806 ==

== ENCOUNTER → 2021-06-15 11:27 | Outpatient (CLI) | payer OTHER, SELFPAY ==
--- NOTE | 2021-06-15 11:33 | US_ITS ---
STUDY: ULTRASOUND OF THE FEMALE PELVIS - COMPLETE REASON FOR EXAM: Female, 66 years old. AUB LMP: Patient is postmenopausal. TECHNIQUE: Transabdominal TECHNICAL QUALITY: Adequate. COMPARISON: Comparison is made with prior study dated 08/09/2010. FINDINGS: The uterus is anteverted and is in a midline position. The uterus measures 8.2 cm x 4.8 cm x 3.1 cm. Normal uterine cervix. The endometrium measures 4.7 mm in thickness, and is hyperechoic. There is no demonstrated endometrial mass. There is a 2.2 cm x 2.1 cm by 1.5 cm uterine fibroid. I.U.D. - The patient does not have an I.U.D. The right ovary is visualized. The right ovary measures 3.8 cm x 2.7 cm x 1.8 cm. There is no right ovarian cyst or ovarian mass. There is no visualized right adnexal mass or complex lesion. There is normal arterial and normal venous vascularity. The left ovary is non-visualized. There is no fluid in the cul-de-sac. The pre void volume of the bladder was 325 ml. US/Pelvic (Non ) IMPRESSION: 2.2 cm x 2.17 x 1.5 cm uterine fibroid. Electronically Signed: Jaya Mac MD at 14:04 EDT , Service support ,
== END ==
PROVIDERS: PCP Internal Medicine; Visit Provider Urology
DX: N95.0 Postmenopausal bleeding (principal); D25.9 Leiomyoma of uterus, unspecified; Z78.0 Asymptomatic menopausal state
CPT/HCPCS: 76856

== ENCOUNTER 2021-09-26 13:20 | Outpatient (CLI) | payer OTHER, SELFPAY | END 2021-09-26 23:59 | disposition home or self-care (01) | PROVIDERS: PCP Internal Medicine; Referring Provider Nurse Practitioner Acute Care; Visit Provider Nurse Practitioner Acute Care | DX: G47.33 Obstructive sleep apnea (adult) (pediatric) (principal) | CPT/HCPCS: 98960; G0463 ==

== ENCOUNTER → 2022-01-05 | Outpatient (CLI) | payer OTHER, SELFPAY ==
[2022-01-05 15:19] LABS: Absolute Lymphocyte Count 1.62 X10^3/uL (0.83-4.51); Absolute Neutrophil Count 3.8 X10^3/uL (2.0-7.7); Basophil# 0.01 X10^3/uL; Basophil% 0.2 % (0-1); Eosinophil# 0.15 X10^3/uL; Eosinophils% 2.4 % (0-5); Hematocrit 40.1 % (37-47); Hemoglobin 12.9 g/dL (12.0-15.0); Lymphocyte # 1.62 X10^3/ul (0.83-4.51); Lymphocyte % 26.4 % (19-41); Mean Corp Hgb Conc 32.2 g/dL (32-36); Mean Corpuscular Hgb 29.7 pg (27.0-32.0); Mean Corpuscular Volume 92.4 fL (81-99); Mean Platelet Vol. 11.8 fl (6.2-12.0); Monocyte# 0.51 X10^3/uL; Monocyte% 8.3 % (0-10); NRBC Flagged by Analyzer 0 % (0-5); Neutrophil # 3.84 X10^3/uL (2.7-7.7); Neutrophil % 62.5 % (47-70); Platelet Count 269 K/mm3 (150-450); RBC Distribution Width CV 14.8 % (11.6-14.6); RBC Distribution Width SD 50.5 fl (35.1-43.9); Red Blood Count 4.34 M/mm3 (4.2-5.4); White Blood Count 6.1 K/mm3 (4.4-11.0)
[2022-01-05 15:33] LABS: Hemoglobin A1c 6.3 % (3.8-5.6)
[2022-01-05 15:43] LABS: Albumin, Serum 3.7 g/dL (3.2-5.0); Anion Gap 4 (5-15); BUN 11 mg/dL (7-18); Calcium,Total 8.9 mg/dL (8.5-10.1); Chloride 100 mmol/L (98-107); Cholesterol 208 mg/dL (200); Creatinine, Serum 0.61 mg/dL (0.55-1.02); EST Glomerular Filtration Rate 104 mL/min (>60); Est Glom Filt Rate - Afr Amer 126 mL/min (>60); Glucose 100 mg/dL (74-106); High Density Lipoprotein 54 mg/dL; Potassium 4.6 mmol/L (3.5-5.1); Sodium Level 135 mmol/L (136-145); Triglycerides 70 mg/dL; Very Low Density Lipoprotein 14 mg/dL (5-40)
== END | disposition home or self-care (01) ==
LOC: MTLAB 13:15
PROVIDERS: PCP Internal Medicine; Referring Provider Internal Medicine; Visit Provider Internal Medicine
DX: E11.65 Type 2 diabetes mellitus with hyperglycemia (principal); E78.00 Pure hypercholesterolemia, unspecified
CPT/HCPCS: 36415; 80048; 80061; 82040; 83036; 85025

== ENCOUNTER → 2022-05-09 | Outpatient (CLI) | payer OTHER, SELFPAY | END | disposition home or self-care (01) | LOC: PSN 08:49 | PROVIDERS: PCP Internal Medicine; Referring Provider Physician Assistant Medical; Visit Provider Physician Assistant Medical | DX: I08.1 Rheumatic disorders of both mitral and tricuspid valves (principal); R53.83 Other fatigue | CPT/HCPCS: 93225; 93226 ==

== ENCOUNTER → 2022-05-17 | Outpatient (CLI) | payer OTHER, SELFPAY ==
--- NOTE | 2022-05-17 14:02 | ECHOD_ITS ---
Version 2 Reason For Study: Dyspnea/SOB Procedure This was a 2D Doppler, Color Flow transthoracic echocardiogram. Technically difficult study due to arrhythmia. Exam performed in department. Left Ventricle Normal LV size. The estimated ejection fraction is 55-60 %. Diastolic function is indeterminate. No regional wall motion abnormalities noted. Right Ventricle Normal RV size. Normal systolic function. Atria The left atrium is moderately enlarged. The right atrium is moderately enlarged. No doppler evidence for ASD. Mitral Valve There is no mitral valve stenosis. Trivial mitral valve insufficiency. Tricuspid Valve There is no tricuspid stenosis. Mild tricuspid valve insufficiency. Pulmonary artery systolic pressure is 40 mmHg. Aortic Valve Trisinus/trileaflet aortic valve. There is no aortic stenosis. No aortic valve insufficiency. Pulmonic Valve There is no pulmonic valvular stenosis. No pulmonic valve insufficiency. Great Vessels Normal aortic root. Pericardium/Pleural No pericardial effusion. MMode/2D Measurements & Calculations LVIDd: 4.9 cm IVSd: 1.0 cm Ao root diam: 3.7 cm LVIDs: 3.1 cm LVPWd: 0.96 cm LA dimension: 4.9 cm RVDd: 3.9 cm FS: 36.4 % LAV(MOD-bp): 100.1 ml LA A4 area: 30.7 cm2 RA A4 area: 34.3 cm2 LAV(MOD-bp) Indexed: 45.6 ml/m2 LAV(MOD-sp2): 82.9 ml LAV(MOD-sp4): 112.5 ml Doppler Measurements & Calculations MV E max ashish: 83.5 cm/sec Ao V2 max: 115.8 cm/sec LV V1 max: 95.9 cm/sec Ao max P.4 mmHg LV V1 max P.7 mmHg Ao V2 mean: 80.5 cm/sec LV V1 mean P.0 mmHg Ao mean P.9 mmHg LV V1 mean: 65.5 cm/sec Ao V2 VTI: 22.2 cm LV V1 VTI: 20.1 cm MR max ashish: 461.2 cm/sec PA V2 max: 82.3 cm/sec TR max ashish: 270.6 cm/sec MR max P.1 mmHg TR max P.6 mmHg ECHO/Echo Complete Interpretation Summary The estimated ejection fraction is 55-60 %. Trivial mitral valve insufficiency. Mild tricuspid valve insufficiency. The left atrium is moderately enlarged. The right atrium is moderately enlarged. Diastolic function is indeterminate. Ordering Physician: Lety Henry Referring Physician: Nina Jiménez M.D. Performed By: Kaushik Bo RCS
== END | disposition home or self-care (01) ==
LOC: CVS 14:00
PROVIDERS: PCP Internal Medicine; Referring Provider Physician Assistant Medical; Visit Provider Physician Assistant Medical
DX: I34.0 Nonrheumatic mitral (valve) insufficiency (principal); I36.1 Nonrheumatic tricuspid (valve) insufficiency; R06.02 Shortness of breath; R53.83 Other fatigue
CPT/HCPCS: 93306

== ENCOUNTER 2022-07-03 11:10 | Day surgery (SDC) | payer MEDICARE, OTHER, SELFPAY ==
--- NOTE | 2022-06-01 15:46 | HP.PCM_ITS ---
History and Physical Date of Admission: 06/05/22 [facility] [address] [place], [place] [address] OFFICE VISIT Date of Service:? 04/26/22 MR#: [id number] Acct: [id number] Name:GREG ZUÑIGA Rep #: [id number] : 1955 Provider: ?JOAQUIM Henry Age/Sex:? 66/F Location: [facility] [place] Status: Signed HPI HPI History of Present Illness Details: GREG AYON, is a 66 year old white female who presents to the office today for a cardiovascular outpatient follow-up with a history of paroxysmal atrial fibrillation, mitral valve insufficiency, tricuspid valve insufficiency, hypertension, and hyperlipidemia. She just started to use her CPAP more routinely. Pt notes that she does feel more fatigued that she should.? She wonders if this is related to her Afib.? She wonders about the possibility of another DCCV.? She notes that when she takes she feels like she needs to take her metoprolol.? If she misses it, she feels that her heart is racing. She does not typically have lightheadedness/dizziness. She questions if she is in Afib more often. Intake Vital Signs ? 04/19/2115:51 04/26/2215:32 04/26/2215:32 Height 5 ft 7 in 5 ft 7 in 5 ft 7 in Weight: ? 243 lb ? BMI ? 38.0 ? BP ? 125/94 H ? Blood Pressure Location ? Lt brachial ? Position ? Sitting ? Respiration ? 18 ? Pulse ? 79 ? Pulse Source ? Monitor ? Pulse Oximetry (%) ? 98 ? 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 Is patient in pain?: No Allergies Seasonal Allergies: Uncoded Allergy (Mild, Verified 04/26/22 15:38) Itchingpneumococcal vaccine [From Pneumovax-23] Allergy (Unknown, Verified 04/26/22 15:38) Unknown Medications pantoprazole 40 mg tablet,delayed release 40 mg PO DAILY 02/04/20 [History Confirmed 04/26/22] Ca 600 mg-D3 800 unit-magnes 40 ow-kuhf-awv-radha-boron chewable tablet 1 ea PO DAILY 06/22/20 [History Confirmed 04/26/22] amlodipine 5 mg tablet 2.5 mg PO QHS PRN elevated bp 06/22/20 [History Confirmed 04/26/22] amlodipine 5 mg tablet (Norvasc) 5 mg PO DAILY #90 tabs 04/19/21 [Rx Confirmed 10/31/21] hydrochlorothiazide 25 mg tablet 25 mg PO QDAY #90 tabs 04/19/21 [Rx Confirmed 04/26/22] metoprolol succinate 100 mg tablet,extended release 24 hr 100 mg PO BID #180 tabs 04/19/21 [Rx Confirmed 04/26/22] rivaroxaban 20 mg tablet 20 mg PO DAILY #90 tabs 04/19/21 [Rx Confirmed 04/26/22] citalopram 20 mg tablet 20 mg PO DAILY 10/31/21 [History Confirmed 04/26/22] lorazepam 0.5 mg tablet 0.5 mg PO DAILY PRN 10/31/21 [History Confirmed 2] PFSH Medical History? 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 History of left heart catheterization (03/11/18) Hx of colonoscopy Hx of hand surgery Family History? Father?? CHF (congestive heart failure) Asthma Hypertension Heart diseaseSon AsthmaOther Diabetes Parkinsons Social History? Smoking Status:? Never smoker alcohol intake:? never substance use type:? does not use caffeine:? Yes what type of physical activity do you participate in:? none frequency:? does not exercise ROS Const Const: Negative for fatigue, weakness, headache(s), frequent falls, difficulty sleeping or excessive sweating Eyes Eyes: Negative for loss of peripheral vision, transient loss of vision, blurry vision, double vision or tunnel vision ENT ENT: Negative for headache(s), dizziness, Nosebleed/epistaxis or balance problems Cardio Chest Pain: No Palpitations: No Edema: None Muscle aches with walking: None Resp Respiratory: Positive for SOB with activity; Negative for SOB at rest, SOB orthopnea\SOB lying down, Cough or paroxysmal nocturnal dyspnea GI GI: Negative nausea, vomiting, heartburn or black,tarry stools : Negative for hematuria Musc Musc: Negative for muscle aches/ myalgia, muscle weakness, joint pain or balance problems Skin Skin: Negative non-healing lesions, rash or unusual bruising Neuro Neuro: Negative for dizziness, lightheadedness, near syncope, syncope, frequent falls, headache(s), weakness, blurry vision, double vision or lack of coordination Barrett Hematologic/Lymphatic: Negative for easy bleeding or easy bruising Endo Endo: Negative for fatigue, excessive sweating or increased thirst/drinking Psych Psych: Negative for anxiety or depression Allergy Allergy/Immunology: Negative for hives and Negative for rash Cardiology Exam Const Appearance: cooperative and no acute distress Orientation: alert and oriented x3 Head Head: normal to inspection Ears: hearing grossly normal bilaterally Nose: external nose normal Face and Sinus: face symmetric Eyes General: appearance normal, both eyes and all related structures Eyelids: eyelids normal Conjunctivae: conjunctivae normal Pupils: PERRL and pupil size EOM: EOM intact bilaterally Neck Neck: normal visual inspection Carotids: Negative bruit Chest Chest inspection: normal inspection of the chest and normal respiratory effort Auscultation: Bilateral: Clear to Auscultation Cardio Palpation: normal PMI Rate: regular rate Rhythm: irregularly irregular Heart sounds: S1 normal and S2 normal; Negative rub, gallop or murmur GI GI: normal to inspection and soft; Negative no hepatosplenomegaly Neuro General: patient alert, patient oriented x3 and CN's II-XI intact bilaterally Skin Skin: no rashes or lesions noted Extremities Pulses: Normal: Right Posterior Tibial Pulse, Left Posterior Tibial Pulse, Right Radial Pulse and Left Radial Pulse Lower Extremity Edema: None: Bilateral Psych Psychological: normal affect Supplemental Info Supplemental Information Transthoracic echocardiogram: 01-26-2020 Interpretation Summary The study was technically difficult. Left ventricular systolic function is normal. The estimated ejection fraction is 65 %. The left atrium is moderately enlarged. The right atrium is severely enlarged. Mild (1+) mitral valve insufficiency. Mild tricuspid valve insufficiency. Mild focal aortic valve thickening. Right ventricular systolic pressure estimated to be 27 mmHg. Unable to assess diastolic dysfunction. Transthoracic echocardiogram: 11-07-16 Interpretation Summary Left ventricular systolic function is normal. The estimated ejection fraction is 60 %. The left atrium is mildly enlarged. The right atrium is mildly enlarged. Mild-Moderate (1-2+) mitral valve insufficiency. Mild to moderate (1-2+) tricuspid valve insufficiency. Mild focal aortic valve thickening. Trivial aortic valve insufficiency. Trivial pulmonic valve insufficiency. Right ventricular systolic pressure estimated to be 27 mmHg. Transesophageal echocardiogram: 07-03-16 Interpretation Summary Left ventricular systolic function is normal. The estimated ejection fraction is 55 %. The left atrium is moderately enlarged. There is no spontanenous contrast in the left atrium. No thrombus is detected in the left atrial appendage. The right atrium is severely enlarged. Mild diffuse mitral valve thickening. Mild-Moderate (1-2+) mitral valve insufficiency. Moderate (2+) tricuspid valve insufficiency. Trivial aortic valve insufficiency. Bubble contrast study negative for right to left interatrial shunt. Normal appearing thoracic aorta. Stress Test Report Date: 02/04/2018 Procedure: Exercise tolerance test/imaging study Indications: Chest pain; paroxysmal atrial fibrillation Consent: Per the patient Procedure: The patient exercised on a Juan protocol for 6 minutes and 22 seconds completing Stage II and 22 seconds of Stage III achieving a peak heart rate of 136 bpm (85 % predicted maximal heart rate) with a peak blood pressure 190/84 mmHg and a peak MET capacity of 7 METs. The baseline ECG demonstrated sinus bradycardia.? The peak exercise ECG demonstrated somatic/motion artifact with no obvious ECG changes. There were occasional PACs and PVCs during exercise and occasional PVCs during recovery. The functional capacity was considered average. There was no complaint of chest discomfort during exercise or recovery. The examination was discontinued secondary to dyspnea and leg discomfort. Impression: 1.? Technically adequate (percent predicted maximal heart rate greater than 85%) exercise tolerance test 2.? Peak exercise ECG with somatic/motion artifact with no obvious ECG changes 3.? There were occasional PACs and PVCs during exercise and occasional PVCs during recovery. 4.? Nuclear images pending Myocardial perfusion imaging study: Technique: The patient was injected with 14.3 mCi of technetium 99m Cardiolite and subsequently rest SPECT Cardiolite nuclear imaging was obtained in the horizontal long, vertical long, and short axis views. The patient exercised on a Juan protocol for 6 minutes and 22 seconds completing Stage II and 22 seconds of Stage III achieving a peak heart rate of 136 bpm (85 % predicted maximal heart rate) with a peak blood pressure 190/84 mmHg and a peak MET capacity of 7 METs. The patient was injected with 44.7 mCi of technetium 99m Cardiolite and subsequently stress SPECT Cardiolite nuclear imaging was obtained in the horizontal long, vertical long, and short axis views.? A gated Cardiolite study at peak stress was obtained. Interpretation: Rest and stress SPECT Cardiolite nuclear imaging status post realignment, normalization, and attenuation correction, demonstrates the appearance of subtle diminished tracer uptake in the mid anterior segments at rest and status post stress the appearance of more prominent diminished tracer uptake in the mid to distal anterior segments.? There are similar type changes on the resting and stress polar map images.? There is end systolic thickening and brightening.? The gated Cardiolite study demonstrates myocardial thickening and inward wall motion.? The reported LVEF is 65 %. Impression: 1.? Rest and stress SPECT Cardiolite nuclear imaging demonstrate myocardial perfusion changes concerning for an area of stress-induced myocardial ischemia and portions of the mid to distal anterior segments, however, contribution from shifting soft tissue attenuation/artifact cannot be excluded. 2.? The gated Cardiolite study reports an LVEF of 65 %. Cardiac catheterization: 03-11-18 CORONARY ANGIOGRAPHY DOMINANCE:? Right Dominant LEFT HEART ASSESSMENT Left Ventricular Ejection Fraction: by LV Gram 60 % Normal LV wall motion Normal Left Ventricular End Diastolic Pressure LVEDP: 19 mmHg LEFT MAIN: Angiographically normal LEFT ANTERIOR DESCENDING ARTERY: Angiographically normal CIRCUMFLEX ARTERY: Angiographically normal RIGHT CORONARY ARTERY: Angiographically normal VALVE FINDINGS: Mitral Valve Insufficiency - Grade 1 (partially PVC induced) AORTIC ROOT: Angiographically normal Angiographically normal Labs: ?? ? LDL Cholesterol 140 mg/dL (0-130)? H ?? ? HDL Cholesterol 54 mg/dL (40-) ?? ? Triglycerides 70 mg/dL (-199) ?? ? VLDL Cholesterol 14 mg/dL (5-40) Diagnostics: ?? ? Venous Doppler Study ? Pulmonary: ?? ? No Data to Display Assessment and Plan Assessment and Plan (1) Paroxysmal atrial fibrillation: ?Status:?Acute ?Plan: Feel that patient's atrial fibrillation more persistent.? She is concerned that she is symptomatic with this.? Would like to obtain a 24-hour Holter monitor to assess if she is in it persistently.? Based on findings we will decide if she is a candidate for a cardioversion or medication adjustments.? If it is not persistent she may benefit from an antiarrhythmic.? She will continue with her current rate limiting medication in addition to her factor Xa inhibitor.? (2) Nonrheumatic mitral valve regurgitation: ?Status:?Chronic ?Plan: This is mild to moderate, it has been several years since this was obtained. With her increase in fatigue, will repeat this. (3) Nonrheumatic tricuspid (valve) insufficiency: ?Status:?Chronic ?Plan: Would like to repeat to evaluate stability. (4) Essential hypertension: ?Status:?Chronic ?Plan: Blood pressure is well controlled on current medications, we do not recommend any changes at this time. (5) Hyperlipidemia: ?Status:?Chronic ?Qualifiers: ?Hyperlipidemia type:?unspecified? Qualified Code(s):?E78.5 - Hyperlipidemia, unspecified (6) TYSON (obstructive sleep apnea): ?Status:?Acute ?Plan: Encouraged continued use of CPAP. (7) Fatigue: ?Status:?Acute ?Plan: She recently had labs done, will obtain a 24 HM to assess overall rhythm to see if this is contributing to her fatigue. ? ? ? Orders: Orders Cardiac Holter Monitor, 24 Hrs Today I34.0 - Nonrheumatic mitral (valve) insufficiency, I36.1 - Nonrheumatic tricuspid (valve) insufficiency, R53.83 - Other fatigue ? Echo Complete Today I34.0 - Nonrheumatic mitral (valve) insufficiency, I36.1 - Nonrheumatic tricuspid (valve) insufficiency, R53.83 - Other fatigue ? Plan Details Additional Comments: Thank you for allowing me to participate in the care of your patient. Please don't hesitate to call if any issues arise. This note was generated using a voice recognition system and there may be incorrect words, spelling, or punctuation that were not noted when reviewing the office note prior to saving. Follow Up: ? ? 6 Weeks (MMM) Coding Level of Care Code Off vis,est,level 4 Diagnoses Paroxysmal atrial fibrillation? I48.0 Nonrheumatic mitral valve regurgitation? I34.0 Nonrheumatic tricuspid (valve) insufficiency? I36.1 Essential hypertension? I10 Hyperlipidemia? E78.5 ? ? ? Hyperlipidemia type: unspecified TYSON (obstructive sleep apnea)? G47.33 Fatigue? R53.83 Coding Level of Care Code Off vis,est,level 4 Diagnoses Paroxysmal atrial fibrillation? I48.0 Nonrheumatic mitral valve regurgitation? I34.0 Nonrheumatic tricuspid (valve) insufficiency? I36.1 Essential hypertension? I10 Hyperlipidemia? E78.5 ? ? ? Hyperlipidemia type: unspecified TYSON (obstructive sleep apnea)? G47.33 Fatigue? R53.83 04/26/22 1621 <Electronically signed by Lety MARCH> Date Lety MARCH Cosigner Signature: Date (if applicable) CC:? Dr. Greg Jiménez, DO ~ Assessment & Plan Addt'l Comments Addendum: The patient underwent evaluation with a Holter monitor. This was completed on 05-11-2022. Holter monitor demonstrated atrial fibrillation with occasional PVCs. The patient's case has been discussed and reviewed. The recommendation was made to attempt regaining sinus rhythm with a synchronized biphasic DC cardioversion. The procedure and risk were discussed with the patient. She was agreeable to this approach.
[2022-06-04 07:33] VITALS: BMI 38.0
--- NOTE | 2022-06-18 16:20 | RAD_ITS ---
INDICATION: Dyspnea on exertion. Preop. EXAMINATION/TECHNIQUE: X-RAY - PA and lateral views. COMPARISON: November 08, 2020. FINDINGS: LINES/DEVICES: None. LUNGS: No consolidation, edema or effusion. No pneumothorax. MEDIASTINUM AND CARDIOVASCULAR STRUCTURES: Cardiac silhouette not enlarged. Central airways and mediastinal contour are unremarkable. BONES AND SOFT TISSUES: Degenerative changes of the thoracic spine. RAD/Chest PA and Lateral IMPRESSION: No acute cardiopulmonary disease or major interval change. Electronically Signed: Shay Hoffman DO at 22:45 EDT ,
[2022-06-18 17:32] LABS: Anion Gap 6 (5-15); BUN 11 mg/dL (7-18); BUN/Creat Ratio 16.5 RATIO (10-20); Calcium,Total 9.2 mg/dL (8.5-10.1); Chloride 99 mmol/L (98-107); Creatinine, Serum 0.67 mg/dL (0.55-1.02); EST Glomerular Filtration Rate 94 mL/min (>60); Est Glom Filt Rate - Afr Amer 114 mL/min (>60); Estimated Creatinine Clearance 81.41 ml/min; Glucose 101 mg/dL (74-106); Potassium 3.9 mmol/L (3.5-5.1); Sodium Level 136 mmol/L (136-145)
--- NOTE | 2022-06-25 13:19 | PCM.HP.BLA ---
History and Physical Date of Admission: 07/03/22 [facility] [address] [place], [place] [address] Name:GREG ZUÑIGA : 1955 ?Age/Sex:? 67/F ?HPI HPI History of Present Illness Surgical H&P: Yes Details: GREG AYON, is a 66 year old white female who presents to the office today for a cardiovascular outpatient follow-up with a history of paroxysmal atrial fibrillation, mitral valve insufficiency, tricuspid valve insufficiency, hypertension, and hyperlipidemia. She just started to use her CPAP more routinely.? Patient was in our office last month with concerns over increased fatigue.? She wondered if it was related to her atrial fibrillation.? She did have a 24-hour Holter monitor done, this did demonstrate atrial fibrillation.? She did have an echocardiogram done Which demonstrated an ejection fraction of 55 to 60%.? Left and right atrium moderately enlarged.? Trivial mitral insufficiency, mild tricuspid insufficiency. She was initially scheduled to undergo a cardioversion recently however she did note that she was not feeling well.The procedure was postponed. She is feeling better since her URI.? She thinks she may have had COVID. She does not have any chest pain but does have occasional twinges. She does not have any worsening SOB. She is still more fatigued and feels that this is related to her Afib.? She does use her CPAP routinely.? [facility]. Intake Vital Signs ? 04/26/2215:32 06/04/2207:34 06/18/2215:34 06/18/2215:34 Height 5 ft 7 in 5 ft 7 in 5 ft 7 in 5 ft 7 in Weight: ? ? 238 lb ? BMI ? ? 37.3 ? BP ? ? 134/83 H ? Blood Pressure Location ? ? Lt brachial ? Position ? ? Sitting ? Respiration ? ? 18 ? Pulse ? ? 79 ? Pulse Source ? ? Monitor ? Pulse Oximetry (%) ? ? 97 ? 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: No Is patient in pain?: No Allergies Seasonal Allergies: Uncoded Allergy (Mild, Verified 06/18/22 15:34) Itchingpneumococcal vaccine [From Pneumovax-23] Allergy (Unknown, Verified 06/18/22 15:34) Unknown Medications pantoprazole 40 mg tablet,delayed release 40 mg PO DAILY 02/04/20 [History Confirmed 04/26/22] Ca 600 mg-D3 800 unit-magnes 40 dl-iykh-pgl-radha-boron chewable tablet 1 ea PO DAILY 06/22/20 [History Confirmed 04/26/22] amlodipine 5 mg tablet 2.5 mg PO QHS PRN elevated bp 06/22/20 [History Confirmed 04/26/22] amlodipine 5 mg tablet (Norvasc) 5 mg PO DAILY #90 tabs 04/19/21 [Rx Confirmed 06/18/22] hydrochlorothiazide 25 mg tablet 25 mg PO QDAY #90 tabs 04/19/21 [Rx Confirmed 06/18/22] metoprolol succinate 100 mg tablet,extended release 24 hr 100 mg PO BID #180 tabs 04/19/21 [Rx Confirmed 06/18/22] rivaroxaban 20 mg tablet 20 mg PO DAILY #90 tabs 04/19/21 [Rx Confirmed 06/18/22] citalopram 20 mg tablet 20 mg PO DAILY 10/31/21 [History Confirmed 04/26/22] lorazepam 0.5 mg tablet 0.5 mg PO DAILY PRN 10/31/21 [History Confirmed 04/26/22] PFSH Medical History? 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 History of left heart catheterization (03/11/18) Hx of colonoscopy Hx of hand surgery Family History? Father?? CHF (congestive heart failure) Asthma Hypertension Heart diseaseSon AsthmaOther Diabetes Parkinsons Social History? Smoking Status:? Never smoker alcohol intake:? never substance use type:? does not use caffeine:? Yes what type of physical activity do you participate in:? none frequency:? does not exercise ROS Const Const: Positive for fatigue; Negative for weakness, headache(s), frequent falls, excessive sweating, weight gain or weight loss Eyes Eyes: Negative for blind spots, loss of peripheral vision, transient loss of vision, blurry vision, change in vision or double vision ENT ENT: Negative for headache(s), dizziness, tinnitus, Nosebleed/epistaxis or balance problems Cardio Chest Pain: Yes Palpitations: Yes Edema: None Muscle aches with walking: None Resp Respiratory: Negative for SOB with activity, SOB at rest, SOB orthopnea\SOB lying down or Cough GI GI: Negative nausea, vomiting, heartburn, bloating, vomiting blood/hematemesis, bright, red blood in stools or black,tarry stools : Negative for hematuria Musc Musc: Positive for muscle aches/ myalgia; Negative for muscle weakness, joint pain or balance problems Skin Skin: Negative rash or wounds Neuro Neuro: Negative for dizziness, lightheadedness, near syncope, syncope, orthostatic symptoms, frequent falls, headache(s), weakness, confusion, memory loss, restless legs, blurry vision or double vision Barrett Hematologic/Lymphatic: Negative for easy bleeding or easy bruising Endo Endo: Positive for fatigue; Negative for cold intolerance, heat intolerance or excessive sweating Psych Psych: Negative for anxiety or depression Allergy Allergy/Immunology: Negative for rash Cardiology Exam Const Appearance: cooperative and no acute distress Orientation: alert and oriented x3 Head Head: normal to inspection Ears: hearing grossly normal bilaterally Nose: external nose normal Face and Sinus: face symmetric Eyes General: appearance normal, both eyes and all related structures Eyelids: eyelids normal Conjunctivae: conjunctivae normal Pupils: PERRL and pupil size EOM: EOM intact bilaterally Neck Neck: normal visual inspection Carotids: Negative bruit Chest Chest inspection: normal inspection of the chest and normal respiratory effort Auscultation: Bilateral: Clear to Auscultation Cardio Palpation: normal PMI Rate: regular rate Rhythm: irregularly irregular Heart sounds: S1 normal and S2 normal; Negative rub, gallop or murmur GI GI: normal to inspection and soft; Negative no hepatosplenomegaly Neuro General: patient alert, patient oriented x3 and CN's II-XI intact bilaterally Skin Skin: no rashes or lesions noted Extremities Pulses: Normal: Right Posterior Tibial Pulse, Left Posterior Tibial Pulse, Right Radial Pulse and Left Radial Pulse Lower Extremity Edema: None: Bilateral Psych Psychological: normal affect Supplemental Info Supplemental Information Echocardiogram 04/2022: The estimated ejection fraction is 55-60 %. Trivial mitral valve insufficiency. Mild tricuspid valve insufficiency. The left atrium is moderately enlarged. The right atrium is moderately enlarged. Diastolic function is indeterminate. Transthoracic echocardiogram: 01-26-2020 Interpretation Summary The study was technically difficult. Left ventricular systolic function is normal. The estimated ejection fraction is 65 %. The left atrium is moderately enlarged. The right atrium is severely enlarged. Mild (1+) mitral valve insufficiency. Mild tricuspid valve insufficiency. Mild focal aortic valve thickening. Right ventricular systolic pressure estimated to be 27 mmHg. Unable to assess diastolic dysfunction. Transthoracic echocardiogram: 11-07-16 Interpretation Summary Left ventricular systolic function is normal. The estimated ejection fraction is 60 %. The left atrium is mildly enlarged. The right atrium is mildly enlarged. Mild-Moderate (1-2+) mitral valve insufficiency. Mild to moderate (1-2+) tricuspid valve insufficiency. Mild focal aortic valve thickening. Trivial aortic valve insufficiency. Trivial pulmonic valve insufficiency. Right ventricular systolic pressure estimated to be 27 mmHg. Transesophageal echocardiogram: 07-03-16 Interpretation Summary Left ventricular systolic function is normal. The estimated ejection fraction is 55 %. The left atrium is moderately enlarged. There is no spontanenous contrast in the left atrium. No thrombus is detected in the left atrial appendage. The right atrium is severely enlarged. Mild diffuse mitral valve thickening. Mild-Moderate (1-2+) mitral valve insufficiency. Moderate (2+) tricuspid valve insufficiency. Trivial aortic valve insufficiency. Bubble contrast study negative for right to left interatrial shunt. Normal appearing thoracic aorta. Stress Test Report Date: 02/04/2018 Procedure: Exercise tolerance test/imaging study Indications: Chest pain; paroxysmal atrial fibrillation Consent: Per the patient Procedure: The patient exercised on a Juan protocol for 6 minutes and 22 seconds completing Stage II and 22 seconds of Stage III achieving a peak heart rate of 136 bpm (85 % predicted maximal heart rate) with a peak blood pressure 190/84 mmHg and a peak MET capacity of 7 METs. The baseline ECG demonstrated sinus bradycardia.? The peak exercise ECG demonstrated somatic/motion artifact with no obvious ECG changes. There were occasional PACs and PVCs during exercise and occasional PVCs during recovery. The functional capacity was considered average. There was no complaint of chest discomfort during exercise or recovery. The examination was discontinued secondary to dyspnea and leg discomfort. Impression: 1.? Technically adequate (percent predicted maximal heart rate greater than 85%) exercise tolerance test 2.? Peak exercise ECG with somatic/motion artifact with no obvious ECG changes 3.? There were occasional PACs and PVCs during exercise and occasional PVCs during recovery. 4.? Nuclear images pending Myocardial perfusion imaging study: Technique: The patient was injected with 14.3 mCi of technetium 99m Cardiolite and subsequently rest SPECT Cardiolite nuclear imaging was obtained in the horizontal long, vertical long, and short axis views. The patient exercised on a Juan protocol for 6 minutes and 22 seconds completing Stage II and 22 seconds of Stage III achieving a peak heart rate of 136 bpm (85 % predicted maximal heart rate) with a peak blood pressure 190/84 mmHg and a peak MET capacity of 7 METs. The patient was injected with 44.7 mCi of technetium 99m Cardiolite and subsequently stress SPECT Cardiolite nuclear imaging was obtained in the horizontal long, vertical long, and short axis views.? A gated Cardiolite study at peak stress was obtained. Interpretation: Rest and stress SPECT Cardiolite nuclear imaging status post realignment, normalization, and attenuation correction, demonstrates the appearance of subtle diminished tracer uptake in the mid anterior segments at rest and status post stress the appearance of more prominent diminished tracer uptake in the mid to distal anterior segments.? There are similar type changes on the resting and stress polar map images.? There is end systolic thickening and brightening.? The gated Cardiolite study demonstrates myocardial thickening and inward wall motion.? The reported LVEF is 65 %. Impression: 1.? Rest and stress SPECT Cardiolite nuclear imaging demonstrate myocardial perfusion changes concerning for an area of stress-induced myocardial ischemia and portions of the mid to distal anterior segments, however, contribution from shifting soft tissue attenuation/artifact cannot be excluded. 2.? The gated Cardiolite study reports an LVEF of 65 %. Cardiac catheterization: 03-11-18 CORONARY ANGIOGRAPHY DOMINANCE:? Right Dominant LEFT HEART ASSESSMENT Left Ventricular Ejection Fraction: by LV Gram 60 % Normal LV wall motion Normal Left Ventricular End Diastolic Pressure LVEDP: 19 mmHg LEFT MAIN: Angiographically normal LEFT ANTERIOR DESCENDING ARTERY: Angiographically normal CIRCUMFLEX ARTERY: Angiographically normal RIGHT CORONARY ARTERY: Angiographically normal VALVE FINDINGS: Mitral Valve Insufficiency - Grade 1 (partially PVC induced) AORTIC ROOT: Angiographically normal Angiographically normal Labs: ?? ? LDL Cholesterol 140 mg/dL (0-130)? H ?? ? HDL Cholesterol 54 mg/dL (40-) ?? ? Triglycerides 70 mg/dL (-199) ?? ? VLDL Cholesterol 14 mg/dL (5-40) Diagnostics: ?? ? Electrocardiogram ? Echocardiogram ? Chest X-Ray ? Pulmonary: ?? ? No Data to Display Assessment and Plan Assessment and Plan (1) Paroxysmal atrial fibrillation: ?Status:?Acute ?Plan: Pts Afib is persistent.? Symptoms of fatigue and WOO could be related to this.? She has been anticoagulated for at least one month.? Her HR is controlled.? Will pursue a DCCV.? Pt is agreeable with this. If DCCV is unsuccessful, will then consider an antiarrhythmic and possible EP referral. ? (2) Nonrheumatic mitral valve regurgitation: ?Status:?Chronic ?Plan: This is mild to moderate, will continue to monitor with routine echos.? (3) Essential hypertension: ?Status:?Chronic ?Plan: Blood pressure is well controlled on current medications, we do not recommend any changes at this time. (4) Hyperlipidemia: ?Status:?Chronic ?Qualifiers: ?Hyperlipidemia type:?unspecified? Qualified Code(s):?E78.5 - Hyperlipidemia, unspecified (5) TYSON (obstructive sleep apnea): ?Status:?Acute ?Plan: Encouraged continued use of CPAP. ? ? ? Orders: Orders 12 Lead EKG performed by [facility] 06/18/22 I48.19 - Other persistent atrial fibrillation ? Basic Metabolic Profile (BMP) 06/18/22 I48.19 - Other persistent atrial fibrillation ? Chest PA and Lateral 06/18/22 I48.19 - Other persistent atrial fibrillation ? Plan Details Additional Comments: Thank you for allowing me to participate in the care of your patient. Please don't hesitate to call if any issues arise. This note was generated using a voice recognition system and there may be incorrect words, spelling, or punctuation that were not noted when reviewing the office note prior to saving. Follow Up: ? ? 2 Months (MMM) ? ? 1 Year (PFM) Coding Level of Care Code Off vis,est,level 3 Diagnoses Paroxysmal atrial fibrillation? I48.0 Nonrheumatic mitral valve regurgitation? I34.0 Essential hypertension? I10 Hyperlipidemia? E78.5 ? ? ? Hyperlipidemia type: unspecified TYSON (obstructive sleep apnea)? G47.33 Coding Level of Care Code Off vis,est,level 3 Diagnoses Paroxysmal atrial fibrillation? I48.0 Nonrheumatic mitral valve regurgitation? I34.0 Essential hypertension? I10 Hyperlipidemia? E78.5 ? ? ? Hyperlipidemia type: unspecified TYSON (obstructive sleep apnea)? G47.33 CC:? Dr. Greg Jiménez, DO ~ Assessment & Plan Addt'l Comments I have examined the patient and the H&P has been reviewed. There are no clinical changes since date of exam. This note was generated using a voice recognition system and there may be incorrect words, spelling or punctuation that were not noted when reviewing the office note prior to saving.
--- NOTE | 2022-07-03 13:47 | PRO.PCM_ITS ---
Procedure Report Date of Procedure: 07/03/22 CONSCIOUS SEDATION REPORT DATE OF SERVICE: July 03, 2022 BRIEF HISTORY OF PRESENT ILLNESS: The patient is a 67-year-old female who presented to [facility] for elective outpatient cardioversion due to underlying atrial fibrillation. The patient denied any prior anesthetic complications. She is systemically anticoagulated on Xarelto. Her last surface echocardiogram demonstrated an ejection fraction of approximately 60%. She does have a known history of obstructive sleep apnea, for which she reports compliance with the use of nocturnal CPAP therapy. PHYSICAL EXAMINATION: VITAL SIGNS: Reviewed and were acceptable. GENERAL: The patient is a female, in no apparent distress, speaking in full sentences. HEENT: Normocephalic, atraumatic. Armando membranes are moist and pink. Good mouth opening noted. Trachea is midline. Good neck mobility. CHEST: S1, S2 irregularly irregular. No murmurs, rubs or gallops were noted. LUNGS: Clear to auscultation bilaterally without appreciable wheezes, rales or rhonchi. ABDOMEN: Soft, nontender, nondistended. Positive bowel sounds. EXTREMITIES: There is no clubbing, cyanosis or edema. ASA Class: II DESCRIPTION OF PROCEDURE: After confirmation of informed consent, the patient's anesthesia plan was reviewed in detail. Propofol was chosen. Risks and benefits were reviewed and the patient agreed to proceed. At 1311, the patient was given 80 mg of propofol. The patient achieved an appropriate level of sedation and was given a 200 joule synchronized cardioversion by Dr. Frias at the bedside. This was successful in achieving normal sinus rhythm. The patient was monitored until 1322, at which time she reached her baseline mental status and function. The patient tolerated the procedure well. COMPLICATIONS: None ESTIMATED BLOOD LOSS: None RECOMMENDATIONS: Okay to recover in usual fashion. Procedures Pulmonary 9xxxx: [id number] Con Sedation
--- NOTE | 2022-07-03 14:32 | CARDIOVERS_ITS ---
Cardioversion Cardioversion: Date: 07-03?2021 Procedure: Synchronized Biphasic DC Cardioversion Indications: Atrial fibrillation Consent: Per the Patient Anesthesia: per Dr. Regalado of pulmonology and critical care medicine with propofol 80 mg IV push total Procedure: Synchronized Biphasic DC Cardioversion: 200 J x 1: Result: Sinus rhythm; premature ectopic complexes Complications: no apparent complications This note was generated with [email or web address] software. It may contain incorrect words, spelling, and punctuation that were not noted in checking the note before signing.
== END 2022-07-03 14:25 | disposition home or self-care (01) ==
LOC: CLSP 11:13
PROVIDERS: Physician Assistant Medical; PCP Internal Medicine; Referring Provider Internal Medicine Cardiovascular Disease; Visit Provider Internal Medicine Cardiovascular Disease
DX: I48.0 Paroxysmal atrial fibrillation (principal); G47.33 Obstructive sleep apnea (adult) (pediatric); Z79.01 Long term (current) use of anticoagulants; R53.83 Other fatigue; E78.5 Hyperlipidemia, unspecified; I10 Essential (primary) hypertension; I49.3 Ventricular premature depolarization; I34.0 Nonrheumatic mitral (valve) insufficiency
CPT/HCPCS: 36415; 71046; 80048; 92960; 93005; J7040

== ENCOUNTER → 2022-10-02 | Outpatient (CLI) | payer MEDICARE, OTHER, SELFPAY ==
--- NOTE | 2022-10-02 12:40 | EMB_PTH ---
PATIENT: GREG AYON LOC: [facility]#:[id number] AGE/SX: 67/F ROOM: RE10/02/[address]: Dr. Scarlet Catalan MD : 1955 BED: DIS: 10/02/2022 SPEC #: [id number] RECD: 10/02/22 17:32 STATUS: CHERYL REAba #: [id number] [place]: 10/02/22 12:[address]: Scarlet Catalan DEPT: SURGICAL PATHOLOGY RECD BY: Jacque Rubio ENTERED: 10/03/22 09:58 SP TYPE: ENDOM BX/C GILES DR: Dr. Greg Jiménez DO Tissues: Endometrium, NOS Procedures: Surgery Specimen Level IV HEADER OPERATION: Endometrial biopsy PRE-OP DIAGNOSIS: Postmenopausal bleeding TISSUE SUBMITTED: Endometrial lining MICROSCOPIC DIAGNOSIS Endometrial biopsy: Scant fragments of superficial benign endometrial tissue, no pathologic diagnosis. See comment. ANTONI:mk 10/04/2022 COMMENT Clinical correlation and appropriate follow up are necessary. MICROSCOPIC DESCRIPTION Slides are reviewed. GROSS DESCRIPTION Received is one container labeled with the patient's name and not further designated. The specimen consists of scant mucoid tissue measuring <0.1 cm in greatest dimension. The specimen is totally submitted in one cassette. / SJ:mk 10/03/2022 TC:4 CPT: 86492
[2022-10-06 11:47] LABS: HPV APTIMA, High Risk Negative (Negative)
== END | disposition home or self-care (01) ==
PROVIDERS: PCP Internal Medicine; Visit Provider Obstetrics & Gynecology
DX: N95.0 Postmenopausal bleeding (principal); Z12.4 Encounter for screening for malignant neoplasm of cervix
CPT/HCPCS: 87624; 88175; 88305; G0145

== ENCOUNTER → 2022-10-05 | Outpatient (CLI) | payer MEDICARE, OTHER, SELFPAY ==
--- NOTE | 2022-10-05 15:42 | US_ITS ---
STUDY: ULTRASOUND OF THE FEMALE PELVIS - COMPLETE REASON FOR EXAM: Female, 67 years old. PMB LMP: Unknown TECHNIQUE: Transabdominal and Transvaginal TECHNICAL QUALITY: Adequate. COMPARISON: 06/15/2021 FINDINGS: The uterus is anteverted and is in a midline position. The uterus measures 7.0 x 4.3 x 3.4 cm. Normal uterine cervix. The endometrium measures 4 mm in thickness, and is hyperechoic. There is no demonstrated endometrial mass. 1.9 cm myometrial fibroid is smaller as compared to prior ultrasound. I.U.D. - The patient does not have an I.U.D. The right ovary is visualized. The right ovary measures 2.2 x 2.3 x 1.1 cm. There is no right ovarian cyst or ovarian mass. There is no visualized right adnexal mass or complex lesion. There is normal arterial and normal venous vascularity. The left ovary is visualized. The left ovary measures 2.4 x 1.8 x 1.6 cm. There is no left ovarian cyst or ovarian mass. There is no visualized left adnexal mass or complex lesion. There is normal arterial and normal venous vascularity. There is no fluid in the cul-de-sac. Visualized urinary bladder is unremarkable. US/Pelvic (Non ) IMPRESSION: Mildly smaller uterine fibroid. Electronically Signed: Aydin Kelly (Brooks), at 19:09 EST ,
== END | disposition home or self-care (01) ==
PROVIDERS: PCP Internal Medicine; Referring Provider Obstetrics & Gynecology; Visit Provider Obstetrics & Gynecology
DX: N95.0 Postmenopausal bleeding (principal)
CPT/HCPCS: 76830; 76856

== ENCOUNTER → 2022-11-07 | Outpatient (CLI) | payer MEDICARE, OTHER, SELFPAY ==
--- NOTE | 2022-11-07 09:02 | US_ITS ---
ACR Level 3 findings have been noted. An addendum which confirms receipt of the report will follow. INDICATION: EPIGASTRIC PAIN EXAMINATION: US Abdomen RUQ (limited) TECHNIQUE: Clarke-scale and color Doppler imaging was performed of the right upper abdominal quadrant. COMPARISON: None. Findings: The liver is diffusely homogenous with overall increased echogenicity. There is possible mild contour nodularity which may represent early cirrhosis. No focal hepatic mass is identified. The main portal vein is normal in size and patent demonstrating hepatopetal flow. The gallbladder is unremarkable without evidence of stones, wall thickening or pericholecystic fluid. Sonographic Thrasher''s tenderness is not appreciated. There is no evidence of intrahepatic biliary ductal dilatation. The CBD is nondilated measuring 7 mm at the level of the feli hepatis. The visualized portions of the pancreas are unremarkable without evidence of focal or diffuse enlargement. Specifically, the tail is obscured by overlying bowel gas. Right kidney measures 12.1 cm in length. It is normal in echogenicity. No focal renal lesion is identified. There is no evidence of hydronephrosis. US/Gallbladder IMPRESSION: Mild dilatation of the CBD with no obstructing stone or mass seen. Consider MRCP for further evaluation. Hyperechoic liver with possible mild contour nodularity. Findings may represent early cirrhosis. No evidence of focal hepatic mass. Electronically Signed: Jhonny George MD at 21:06 EDT ,
== END | disposition home or self-care (01) ==
LOC: US 09:00
PROVIDERS: PCP Internal Medicine; Referring Provider Internal Medicine; Visit Provider Internal Medicine
DX: R10.13 Epigastric pain (principal)
CPT/HCPCS: 76705

== ENCOUNTER → 2022-12-10 | Outpatient (CLI) | payer MEDICARE, OTHER, SELFPAY ==
--- NOTE | 2022-12-10 12:12 | NM_ITS ---
CLINICAL: 67-year-old female with history of epigastric pain. RADIONUCLIDE HEPATOBILIARY SCINTIGRAPHY COMPARISON: Previous hepatobiliary scintigraphy study report dated 07/06/2014, abdominal ultrasound report 11/07/2022 FINDINGS: Following the intravenous administration of 5.1 mCi of 99m Tc Mebrofenin, hepatobiliary images reveal:. 1. Relatively prompt and homogeneous radiopharmaceutical concentration is noted by the hepatic parenchyma, the left lobe is prominent in size. No parenchymal defects are identified. 2. Gallbladder activity is identified at 30 minutes post radiopharmaceutical administration. 3. Small intestinal tract is observed at 45 minutes following tracer injection. 4. Washout of the radiopharmaceutical by the hepatic parenchyma appears qualitatively normal. Cholecystokinin (0.02 ug/kg) was administered intravenously over a 30-minute period. The post CCK gallbladder ejection fraction calculated at 20 minutes following Cholecystokinin administration was noted to be 84.0 % (normal greater than 35%) compared to 96.8% recorded on the study dated 07/06/2014. During 30 minutes of post CCK imaging, there is scintigraphic evidence of refilling of the gallbladder and trace duodenal-gastric reflux. NM/Hepatobilliary Img w/Pharm Int IMPRESSION: 1. A gallbladder ejection fraction calculated to be greater than 35% following the administration of Cholecystokinin makes the probability of functional hepatobiliary disease (gallbladder dyskinesia) and/or organic hepatobiliary disease (chronic acalculous cholecystitis and/or cystic duct syndrome) to be low. (Jefferson Blair et al, Journal of Nuclear Medicine 32:1695, 1991). 2. An encountered normal gallbladder ejection fraction with refilling of the gallbladder following CCK administration may represent the presence of Sphincter of Oddi dysfunction. Correlation with Sphincter of Oddi manometry may be of benefit. (Evelio and Evelio, J Nucl Med 38:1824, 1997). 3. There is demonstration of subtle post cholecystokinin duodenal-gastric reflux. 4. Overall, there is minimal interval change. There is current evidence of gallbladder refilling following cholecystokinin administration. Electronically Signed: Steven Cunha, at 20:55 EDT ,
== END | disposition home or self-care (01) ==
LOC: NM 12:12
PROVIDERS: PCP Internal Medicine; Referring Provider Internal Medicine; Visit Provider Internal Medicine
DX: R10.13 Epigastric pain (principal)
CPT/HCPCS: 78227; A9537; J2805

== ENCOUNTER → 2023-01-09 | Outpatient (CLI) | payer MEDICARE, OTHER, SELFPAY ==
--- NOTE | 2023-01-09 10:05 | VDLE_ITS ---
Reason For Study: Pain right leg RIGHT LEFT GSV is normal. CFV is compressible, spontaneous, phasic, CFV is compressible, spontaneous, phasic, competent, and demonstrates normal competent and demonstrates normal augmentation. augmentation. FV is compressible, spontaneous, phasic, competent and demonstrates normal augmentation. POP V is compressible, spontaneous, phasic, competent and demonstrates normal augmentation. T/P Trunk is compressible. PTV is compressible. RT PerV is compressible. Procedure This is a venous duplex using B-mode, color flow and spectral Doppler. Exam performed in department. A preliminary report was called and/or faxed to Dr. Jiménez. VL/Venous Duplex US, Unilateral Interpretation Summary Deep veins of the right lower extremity are patent and compressible segmentally . There is no evidence of right lower extremity deep vein thrombosis. The right great sapheno us vein appears patent and compressible segmentally. Ordering Physician: Nina Jiménez Referring Physician: Nina Jiménez Performed By: Denice Ambrosio RVT
== END | disposition home or self-care (01) ==
LOC: CVS 10:02
PROVIDERS: PCP Internal Medicine; Referring Provider Internal Medicine; Visit Provider Internal Medicine
DX: M79.604 Pain in right leg (principal)
CPT/HCPCS: 93971

== ENCOUNTER → 2023-05-02 | Outpatient (CLI) | payer MEDICARE, OTHER, SELFPAY | END | disposition home or self-care (01) | LOC: SL 12:08 | PROVIDERS: PCP Internal Medicine; Referring Provider Internal Medicine Critical Care Medicine; Visit Provider Internal Medicine Critical Care Medicine | DX: G47.33 Obstructive sleep apnea (adult) (pediatric) (principal) | CPT/HCPCS: 98960; G0463 ==

== ENCOUNTER → 2023-08-15 | Outpatient (CLI) | payer MEDICARE, OTHER, SELFPAY ==
--- NOTE | 2023-08-15 13:09 | BI_ITS ---
MAMMOGRAPHY - BILATERAL SCREENING 3-D TOMOSYNTHESIS REASON FOR EXAM: Female, 68 years old. Routine annual screening mammogram. PERTINENT HISTORY: Paternal grandmother with breast cancer at age 54 and 4 maternal cousins with breast cancer. TECHNIQUE: 2-D mammograms and 3-D Tomosynthesis of the breast (s) were performed. CAD was performed. COMPARISON: August 04, 2018, November 02, 2018 FINDINGS: The breast composition is heterogeneously dense that can obscure small breast masses. Stable normal bilateral lymph nodes. No dominant masses, suspicious microcalcifications, asymmetries, skin thickening or nipple retraction. BI/SCRN MAMM (CAD)W/BRADLEY BILAT IMPRESSION: No interval change and no mammographic signs of malignancy. Routine yearly mammogram recommended. ASSESSMENT CATEGORY: BIRADS Category 1: Negative. A letter regarding these results will be sent to the patient by the facility within 30 days. FOLLOW UP RECOMMENDATION: Yearly follow up mammogram recommended. (A) Approximately 10% of breast cancers are not detected by mammography. A normal mammogram should not delay biopsy of a clinically suspicious abnormality. Electronically Signed: Louie Gerber MD at 15:22 EST ,
== END | disposition home or self-care (01) ==
PROVIDERS: PCP Internal Medicine; Referring Provider Internal Medicine; Visit Provider Internal Medicine
DX: Z12.31 Encounter for screening mammogram for malignant neoplasm of breast (principal)
CPT/HCPCS: 77063; 77067

== ENCOUNTER → 2023-10-22 | Outpatient (CLI) | payer MEDICARE, OTHER, SELFPAY ==
--- NOTE | 2023-10-22 10:25 | MRI_ITS ---
MRCP and MR Abdomen without contrast 10/22/2023 10:49 AM COMPARISON: US 11/07/2022 CLINICAL HISTORY: COMMON BILE DUCT DILATION TECHNIQUE: Multiplanar and multisequence MR images of the abdomen were obtained with MRCP sequence. Three-dimensional post-processing reconstructions were performed. FINDINGS: Liver: Possible slight contour nodularity. Gallbladder: Unremarkable Bile Ducts: No intra or extrahepatic biliary ductal dilatation. Pancreas: Minimally complex 1.2 cm T2 hyperintense cystic lesion in the body of the pancreas with no main pancreatic duct dilatation. Spleen: Unremarkable Adrenal Glands: Unremarkable Kidneys: Bilateral irregular appearing parapelvic cysts. GI Tract: Unremarkable Lymphadenopathy: Absent Ascites: Absent Bones: No suspicious lesions MRI/MRCP Abdomen without Contrast IMPRESSION: No intra or extrahepatic biliary duct dilatation. The previously seen CBD dilatation was most likely secondary to an obstructing stone that has since passed. 1.2 cm minimally complex cystic lesion in the body of the pancreas with no main pancreatic duct dilatation. This most likely represents a primary pancreatic cystic neoplasm such as a side branch intraductal papillary mucinous neoplasm (IPMN). Per ACR guidelines, recommend follow-up MRCP w/ and w/out contrast in 2 years. Bilateral irregular appearing parapelvic renal cysts. Consider follow-up renal ultrasound. Possible slight contour nodularity of the liver could represent early cirrhosis. Electronically Signed: Jhonny George MD at 5:03 EST ,
== END | disposition home or self-care (01) ==
LOC: MRI 10:21
PROVIDERS: PCP Internal Medicine; Referring Provider Internal Medicine; Visit Provider Internal Medicine
DX: K83.8 Other specified diseases of biliary tract (principal)
CPT/HCPCS: 74181

== ENCOUNTER → 2023-10-29 | Outpatient (CLI) | payer MEDICARE, OTHER, SELFPAY ==
--- NOTE | 2023-10-29 15:42 | US_ITS ---
INDICATION: renal cyst EXAMINATION: Ultrasound US Kidney(s) complete (eg, kidneys and bladder) TECHNIQUE: Clarke scale and color doppler images were obtained of the kidneys. COMPARISON: FINDINGS: RIGHT KIDNEY: 11.9 x 5.3 x 5.0 cm. The cortex is 10 mm. There is no hydronephrosis. No shadowing calculus or perinephric collection is demonstrated. There is a 1.5 cm cyst. LEFT KIDNEY: 12.0 x 5.4 x 6.2 cm. The cortex is 11 mm. There is no hydronephrosis. No shadowing calculus, focal lesion or perinephric collection is demonstrated. URINARY BLADDER: No acute abnormality. US/Kidney and Bladder IMPRESSION: 1.5 cm right renal cyst. Electronically Signed: Yariel Bell DO at 20:09 EDT ,
== END | disposition home or self-care (01) ==
LOC: US 15:39
PROVIDERS: PCP Internal Medicine; Referring Provider Internal Medicine; Visit Provider Internal Medicine
DX: N28.1 Cyst of kidney, acquired (principal)
CPT/HCPCS: 76770

== ENCOUNTER → 2023-11-14 | Outpatient (CLI) | payer MEDICARE, OTHER, SELFPAY ==
--- NOTE | 2023-11-14 07:25 | US_ITS ---
STUDY: ABDOMINAL ULTRASOUND - RIGHT UPPER QUADRANT; ELASTOGRAPHY REASON FOR VISIT: Female, 68 years old. Fatty infiltration of the liver. TECHNIQUE: Ultrasound evaluation of the right upper quadrant was performed with real-time and static elise-scale imaging. Point quantification shear wave elastography was performed (Q.ME). TECHNICAL QUALITY: Adequate. COMPARISON: Comparison is made with prior study November 07, 2022. FINDINGS: Liver: The liver measures 16 cm. There is increased echogenicity consistent with fatty infiltration. The bile ducts are within normal limits. There is hepatic color flow. The direction of portal flow is hepatopetal. There is no demonstrated mass lesion. Median liver stiffness measured 10.2 kPa. Gallbladder: Normal distended gallbladder. The gallbladder wall measures 1.6 mm. There is a negative sonographic Thrasher''s sign. There is no pericholecystic fluid. There are no gallstones. Common Bile Duct (C.B.D.): The common bile duct measures 6.9 mm. Pancreas: There is normal echogenicity of the visualized pancreas. There is no demonstrated pancreatic mass or cyst. Right Kidney: Normal size of the right kidney. The right kidney measures 11.2 cm x 5.7 cm x 4.6 cm. Normal renal cortex. The right cortex measures 1.6 cm. There is a 1.2 cm x 1.4 cm x 1 cm renal cyst. There is no right hydronephrosis. US/ABD Limited w/ Elastography IMPRESSION: 1. Liver stiffness measures 10.2 kPa compatible with F2-F3 (Mild to moderate liver fibrosis) Metavir score. Electronically Signed: Jaya Mac MD at 10:48 EDT ,
== END | disposition home or self-care (01) ==
LOC: US 07:25
PROVIDERS: PCP Internal Medicine; Referring Provider Internal Medicine; Visit Provider Internal Medicine
DX: N28.1 Cyst of kidney, acquired (principal); K76.0 Fatty (change of) liver, not elsewhere classified
CPT/HCPCS: 76705; 76981

== ENCOUNTER 2024-02-06 12:29 | Outpatient (RCR) | payer MEDICARE, OTHER, SELFPAY ==
--- NOTE | 2024-02-06 13:49 | HP.PTEVAL ---
Patient's Visit Information Visit Information Visit Information: NINA AYON is a 68 year old F referred to Physical Therapy by Dr. Nina Jiménez DO with a diagnosis of Groin Pain. Date of Evaluation: 02/06/24 Physical Therapist: ROBBIN Flores Visit Plan Frequency: 1x/Week Duration: 6 Weeks Plan: Pt has a very busy schedule right now...she also has an abdominal hernia and has to be careful with some exercises 1X/ week for 6 weeks for L piriformis stretching, L glut and hip ER strength, gait mechanics, sit to stand mechanics to get glut activated with HEP HEP: Clam shells 3 X 10 (attempted with a green band but hurt hernia), Bridges 2 X 10, sit to stand 2 X 10 (went over standing mechanics to get gluts activated) and seated piriformis stretching with L knee to R shoulder Subjective Subjective: Pt has had hernia surgery and knee surgery in 2 years. She has slipped and fell a couple of times. Dr Davis said get into PT. She fell on her L butt cheek in her house and her knee was under her but her whole butt cheek is really bothering her. She can not sit. She went to a neuromuscular girl and got some stretches (manual therapy) and stretches (piriformis sitting into ER). She has fallen 4X/ since her second surgery and she shuffles and does not order picker/assembler her feet. Sitting hurts, stairs, takes her awhile to get into a position to sleep. She points to her HS insertion on the L. She can lay on her L but not for long. No N&T. No back pain Pain L hip pain: Pain Intensity (Out of 10): 6 Objective Objective: Gait: walks with straight legs and decreased and decreased heel strike, decrease stride length and glut activitation Sit to stand: pt uses arms to stand up... she was able to stand up with legs apart and instruct in good weight shift FW and glut activation once standing LE MMT R hip flex 4/5 and L 4-/5 R hip ext 3-/5 and L hip ext 3-/5 R knee flex and ext B 4/5 Pt had slight increase pain and tightness with L piriformis stretch... Chair piriformis stretch with L knee to R shoulder really stretches into the pain. Pt has good B HS length Palpation: tender over L piriformis, gmax and med on the L Balance/Special Test Scores Lower Extremity Functional Score: 15 Goals Goal 1:: I HEP Goal Time Frame: 6-8 Weeks Goal 2:: Decrease L hip pain to less than 2/10 with ADL's Goal Time Frame: 6-8 Weeks Goal 3:: Be able to sit to stand X 10 with no arms and good glut activation and no pain Goal Time Frame: 6-8 Weeks Goal 4:: Be able to walk with more heel to toe gait pattern, increase hip ext and longer stride length Goal Time Frame: 6-8 Weeks Goal 5:: No pain with L piriformis stretching Goal Time Frame: 6-8 Weeks Rehabilitation Potential Rehabilitation Potential: Good Anticipated Interventions Patient/Client Instruction: Educate patient on: Condition and Plan of Care For the Purpose of:: To decrease pain, To increase ROM, To improve nutrient delivery to tissue, To improve muscle performance and motor function, To improve ability to perform ADL's, To increase tolerance to activity/condition/position, To improve performance and independence with ADL's, To improve ability of physical actions for home/community/work/leisure, To improve gait and locomotor functions, To improve health of tissue, To decrease soft tissue restriction, To increase flexibility/ROM, To improve endurance and To improve balance Therapeutic Exercise to Include: Strength training, Endurance training, Balance training, Postural training, Flexibilty training, Gait and locomotor training, Neuromotor development, Passive ROM, Active ROM and Dynamic Lumbar Stabilization For the Purpose of:: To decrease pain, To decrease swelling/inflammation, To increase ROM, To improve nutrient delivery to tissue, To improve muscle performance and motor function, To increase tolerance to activity/condition/position, To improve performance and independence with ADL's, To decrease level of supervision to perform tasks, To improve ability of physical actions for home/community/work/leisure, To improve gait and locomotor functions, To improve health of tissue, To decrease soft tissue restriction and To increase flexibility/ROM Functional Training to Include: Gait training For the Purpose of:: To improve gait and locomotor functions Manual Therapy Techniques to Include: Passive ROM and Soft tissue mobilization For the Purpose of:: To increase ROM, To improve nutrient delivery to tissue, To improve health of tissue, To decrease soft tissue restriction and To increase flexibility/ROM Text: Thank you for the opportunity to evaluate your patient. For Medicare and Medicare HMO plans, please review the plan of care and approve it. It will need to be FAXED BACK to us at [phone] for Medicare purposes. For Medicare only, by signing this I certify the plan of care. Please let me know if there are questions or concerns regarding this plan of care. Physician Signature: Date:
--- NOTE | 2024-05-19 08:14 | HP.PT.NRP ---
Patient Information Patient Information: GREG AYON was seen in my office for initial evaluation on 02/06/24. The following Plan of Care was established for this patient: POC Established Initial Frequency: 1x/Week Initial Duration: 6 Weeks Anticipated Interventions Patient/Client Instruction: Educate patient on: Condition and Plan of Care For the Purpose of:: To decrease pain, To increase ROM, To improve nutrient delivery to tissue, To improve muscle performance and motor function, To improve ability to perform ADL's, To increase tolerance to activity/condition/position, To improve performance and independence with ADL's, To improve ability of physical actions for home/community/work/leisure, To improve gait and locomotor functions, To improve health of tissue, To decrease soft tissue restriction, To increase flexibility/ROM, To improve endurance and To improve balance Therapeutic Exercise to Include: Strength training, Endurance training, Balance training, Postural training, Flexibilty training, Gait and locomotor training, Neuromotor development, Passive ROM, Active ROM and Dynamic Lumbar Stabilization For the Purpose of:: To decrease pain, To decrease swelling/inflammation, To increase ROM, To improve nutrient delivery to tissue, To improve muscle performance and motor function, To increase tolerance to activity/condition/position, To improve performance and independence with ADL's, To decrease level of supervision to perform tasks, To improve ability of physical actions for home/community/work/leisure, To improve gait and locomotor functions, To improve health of tissue, To decrease soft tissue restriction and To increase flexibility/ROM Functional Training to Include: Gait training For the Purpose of:: To improve gait and locomotor functions Manual Therapy Techniques to Include: Passive ROM and Soft tissue mobilization For the Purpose of:: To increase ROM, To improve nutrient delivery to tissue, To improve health of tissue, To decrease soft tissue restriction and To increase flexibility/ROM Last Seen Last Seen: This patient was last seen in our office 02/06/24. Pertinent comments regarding their Physical therapy will appear below: DC PT At this point I will be discontinuing this patient from physical therapy. I would be happy to see this patient again in the future if found appropriate by the physician. Thank you! Nette Harden, MPT Balance/Gait/Functional tests Balance/Special Test Scores Lower Extremity Functional Score: 15
== END 2024-02-06 19:00 | disposition home or self-care (01) ==
LOC: PT 12:29
PROVIDERS: PCP Internal Medicine; Referring Provider Internal Medicine; Visit Provider Internal Medicine
DX: R10.31 Right lower quadrant pain (principal)
CPT/HCPCS: 97110; 97162

== ENCOUNTER → 2024-02-14 | Outpatient (CLI) | payer MEDICARE, OTHER, SELFPAY ==
[2024-02-14 10:48] LABS: Absolute Lymphocyte Count 1.59 X10^3/uL (0.83-4.51); Absolute Neutrophil Count 4.2 X10^3/uL (2.0-7.7); Basophil# 0.02 X10^3/uL; Basophil% 0.3 % (0-1); Eosinophil# 0.18 X10^3/uL; Eosinophils% 2.8 % (0-5); Hematocrit 40.3 % (37-47); Lymphocyte # 1.59 X10^3/ul (0.83-4.51); Lymphocyte % 24.5 % (19-41); Mean Corp Hgb Conc 32.3 g/dL (32-36); Mean Corpuscular Hgb 28.6 pg (27.0-32.0); Mean Corpuscular Volume 88.8 fL (81-99); Mean Platelet Vol. 11.2 fl (6.2-12.0); Monocyte% 7.7 % (0-10); NRBC Flagged by Analyzer 0 % (0-5); Neutrophil # 4.19 X10^3/uL (2.7-7.7); Neutrophil % 64.4 % (47-70); Platelet Count 260 K/mm3 (150-450); RBC Distribution Width CV 14.5 % (11.6-14.6); RBC Distribution Width SD 46.8 fl (35.1-43.9); Red Blood Count 4.54 M/mm3 (4.2-5.4); White Blood Count 6.5 K/mm3 (4.4-11.0)
[2024-02-14 11:16] LABS: BNP,B-Type NATRIURETIC PEPTIDE 98.4 pg/mL (0-100)
[2024-02-14 11:25] LABS: Anion Gap 6 (5-15); BUN 15 mg/dL (7-18); BUN/Creat Ratio 23.2 RATIO (10-20); Calcium,Total 9.1 mg/dL (8.5-10.1); Chloride 105 mmol/L (98-107); Creatinine, Serum 0.65 mg/dL (0.55-1.02); EST Glomerular Filtration Rate 97 mL/min (>60); Est Glom Filt Rate - Afr Amer 118 mL/min (>60); Glucose 110 mg/dL (74-106); Potassium 4.1 mmol/L (3.5-5.1); Sodium Level 137 mmol/L (136-145); Thyroid Stim Hormone (TSH) 1.64 uIU/mL (0.358-3.74)
== END | disposition home or self-care (01) ==
LOC: LAB 10:22
PROVIDERS: PCP Internal Medicine; Referring Provider Physician Assistant Medical; Visit Provider Physician Assistant Medical
DX: R06.09 Other forms of dyspnea (principal); I48.19 Other persistent atrial fibrillation; R53.83 Other fatigue
CPT/HCPCS: 36415; 80048; 83880; 84443; 85025

== ENCOUNTER → 2024-03-06 | Outpatient (CLI) | payer MEDICARE, OTHER, SELFPAY ==
--- NOTE | 2024-03-06 07:04 | ECHOD_ITS ---
Reason For Study: WOO Procedure This was a 2D Doppler, Color Flow transthoracic echocardiogram. Exam performed in department. Left Ventricle Normal LV size. Left ventricular systolic function is normal. The left ventricular ejection fraction is 55 %. No regional wall motion abnormalities noted. Right Ventricle Mildly dilated right ventricle. Normal systolic function. Atria The left atrium is moderately enlarged. The right atrium is moderately enlarged. Mitral Valve Normal mitral valve. Moderate (2+) eccentric mitral valve insufficiency. Tricuspid Valve Normal tricuspid valve. Mild (1+) tricuspid valve insufficiency. Pulmonary artery systolic pressure is 43 mmHg. Great Vessels Normal aortic root. The pulmonary artery is normal size. Normal inferior vena cava. Pericardium/Pleural No pericardial effusion. MMode/2D Measurements & Calculations LVIDd: 4.9 cm IVSd: 1.1 cm Ao root diam: 3.8 cm LVIDs: 3.2 cm LVPWd: 0.93 cm RVDd: 3.7 cm FS: 34.4 % LAV(MOD-bp): 103.6 ml SV(MOD-sp4): 46.6 ml LVAd ap4: 28.7 cm2 LAV(MOD-bp) Indexed: 46.6 ml/m2 LVLd ap4: 7.9 cm LAV(MOD-sp2): 85.0 ml EDV(MOD-sp4): 88.7 ml LAV(MOD-sp4): 102.6 ml EDV(sp4-el): 88.7 ml LVAs ap4: 17.4 cm2 LVLs ap4: 6.5 cm ESV(MOD-sp4): 42.0 ml ESV(sp4-el): 39.9 ml EF(MOD-sp4): 52.6 % EF(sp4-el): 55.0 % SV(sp4-el): 48.8 ml LA dimension(2D): 4.6 cm LA A4 area: 28.1 cm2 TAPSE: 2.6 cm RA A4 area: 29.3 cm2 Doppler Measurements & Calculations MV E max ashish: 77.2 cm/sec Ao V2 max: 116.1 cm/sec LV V1 max: 81.1 cm/sec Ao max P.4 mmHg LV V1 max P.6 mmHg Ao V2 mean: 83.1 cm/sec LV V1 mean P.5 mmHg Ao mean P.1 mmHg LV V1 mean: 57.9 cm/sec Ao V2 VTI: 26.6 cm LV V1 VTI: 19.4 cm AV (velocity ratio): 0.73 PA V2 max: 98.2 cm/sec TR max ashish: 313.0 cm/sec PA V2 mean: 65.5 cm/sec TR max P.2 mmHg ECHO/Echo Complete Interpretation Summary Normal LV size. Left ventricular systolic function is normal. The left ventricular ejection fraction is 55 %. Pulmonary artery systolic pressure is 43 mmHg. Ordering Physician: Lety Henry Referring Physician: Lety Henry Performed By: Loni Bright RCS
--- NOTE | 2024-03-06 13:44 | STRESSREP_ITS ---
Stress Test Report [facility] STRESS Date: 03/06/2024 ? Procedure: Pharmacologic stress nuclear imaging study?? ? Indications: WOO ? Consent: Per the patient ? Procedure: ? The patient underwent pharmacologic (Regadenoson 0.4mg ) evaluation with a peak heart rate of 96 beats per minute (62%predicted maximal heart rate) and a peak blood pressure of 130/84 mmHg. ? The baseline ECG demonstrated atrial fibrillation.? The peak pharmacologic ECG demonstrated no ischemic changes. ? There was no complaint of chest discomfort during pharmacologic infusion or recovery.. ? The patient was injected with 15.0 millicuries of technetium 99m Cardiolite and subsequently rest SPECT Cardiolite nuclear imaging was obtained in the horizonta l long, vertical long, and short axis views. The patient underwent pharmacologic (Regadenoson) evaluation. The patient was injected with 44.8 millicuries of technetium 99m Cardiolite and subsequently stress SPECT Cardiolite nuclear imaging was obtained in the horizontal long, vertical long, and short axis views.? A gated Cardiolite study at peak stress was obtained. ? The examination was stopped secondary to completion of protocol. ? Rest and stress SPECT Cardiolite nuclear imaging status post realignment, normalization, and attenuation correction demonstrate no fixed or reversible perfusion defects.. There is end systolic thickening and brightening. The gated Cardiolite study demonstrates myocardial thickening and inward wall motion.? The reported LVEF is 67%. ? Impression: ? 1.? Pharmacologic (Regadenoson) evaluation 2.? Peak pharmacologic ECG with no ischemic changes. 3. Baseline atrial fibrillation 5. Rest and stress SPECT Cardiolite nuclear imaging demonstrate relative uniform tracer uptake and myocardial perfusion appearing within normal limits. 6.? The gated Cardiolite study reports an LVEF of 67%.
== END | disposition home or self-care (01) ==
LOC: CVS 07:03
PROVIDERS: PCP Internal Medicine; Referring Provider Physician Assistant Medical; Visit Provider Physician Assistant Medical
DX: I48.0 Paroxysmal atrial fibrillation (principal); R06.09 Other forms of dyspnea; R53.83 Other fatigue
CPT/HCPCS: 78452; 93017; 93306; A9500; A4216; J2785

== ENCOUNTER → 2024-10-01 | Outpatient (CLI) | payer MEDICARE, OTHER, SELFPAY ==
--- NOTE | 2024-10-01 09:36 | BD_ITS ---
PROCEDURE: DEXA BONE DENSITY STUDY REASON FOR EXAM: F, age 69 y/o . TECHNIQUE: DEXA scan of the lumbar spine and both hips. COMPARISON: None. FINDINGS: T-SCORES Lumbar spine: 0.8 (BMD 1.133) Left hip: -0.1 (BMD 0.929) Right hip: -0.1 (BMD 0.935) FRAX* Results: 10 Year Probability of Fracture: Hip Fracture(1): 11% Major Osteoporotic Fracture(2): 0.8% *FRAX is a trademark of the [employer]'s [employer] for Metabolic Bone Disease, World Health Organization (WHO) Collaborating [employer]. 1-The 10-year probability of fracture may be lower than reported if the patient has received treatment. 2-Major Osteoporotic Fracture: Clinical Spine, Forearm, Hip or Shoulder. The T-scores are also available for review on the [facility] PACS or by accessing the [facility] electronic medical record. BD/Dexa Bone Density Study IMPRESSION: Mild osteopenia of the right and left hips. Reading Location: [place]
--- NOTE | 2024-10-01 09:36 | BI_ITS ---
PROCEDURE: SCRN MAMM (CAD)W/BRADLEY BILAT REASON FOR EXAM: F, Age 69 y/o, paternal grandmother with breast cancer. TECHNIQUE: Bilateral screening digital breast tomosynthesis with 2D and 3D images. Computer aided detection. COMPARISON: Prior exam(s) dating back to August 15, 2023.. FINDINGS: The breasts are extremely dense which lowers the sensitivity of mammography. Stable examination. Small bilateral axillary lymph nodes. No suspicious masses, areas of developing architectural distortion, or suspicious calcifications. BI/SCRN MAMM (CAD)W/BRADLEY BILAT IMPRESSION: BI-RADS 2: BENIGN. RECOMMEND ANNUAL MAMMOGRAPHIC SCREENING. Follow-up code: Routine Follow-up The patient will be notified of the results by letter. Reading Location: [place] [id number]
== END | disposition home or self-care (01) ==
LOC: OPBD 09:33
PROVIDERS: PCP Internal Medicine; Referring Provider Internal Medicine; Visit Provider Internal Medicine
DX: Z12.31 Encounter for screening mammogram for malignant neoplasm of breast (principal); Z78.0 Asymptomatic menopausal state
CPT/HCPCS: 77063; 77067; 77080

== ENCOUNTER → 2025-07-20 | Outpatient (CLI) | payer MEDICARE, OTHER, SELFPAY ==
[2025-07-20 13:34] VITALS: BP 133/78; PULSE 95; RESP 18; TEMP 36.8; O2SAT 98; BMI 39.1
[2025-07-20 13:40] VITALS: BP 137/87; PULSE 84; PULSE 89; RESP 18; O2SAT 98
[2025-07-20 13:45] VITALS: BP 135/84; PULSE 85; RESP 13; O2SAT 99
[2025-07-20 13:50] VITALS: BP 131/80; PULSE 83; RESP 15; O2SAT 96
[2025-07-20 14:00] VITALS: BP 121/79; PULSE 82; RESP 14; O2SAT 97
== END | disposition home or self-care (01) ==
LOC: CT 13:13
PROVIDERS: PCP Internal Medicine; Referring Provider Student in an Organized Health Care Education/Training Program; Visit Provider Student in an Organized Health Care Education/Training Program
DX: Z00.00 Encounter for general adult medical examination without abnormal findings (principal)
CPT/HCPCS: 96374

== ENCOUNTER → 2025-08-13 | Outpatient (CLI) | payer MEDICARE, OTHER, SELFPAY ==
--- NOTE | 2025-08-13 07:37 | ECHOD_ITS ---
Reason For Study Reason For Study: WOO Procedure This was a 2D Doppler, Color Flow transthoracic echocardiogram. Exam performed in department. Left Ventricle Normal-sized left ventricle. Left ventricular EF by Cheek's biplane: 49%. Diastolic dysfunction grade indeterminate in the setting of arrhythmia. Mild global hypokinesis. Right Ventricle Mildly dilated right ventricle. Normal systolic function. RVSP estimated at 40 to 50 mmHg. Atria Moderately dilated right atrium and left atrium. Estimated RA pressure: 3 mmHg. Mitral Valve Normal mitral valve. Trace mitral regurgitation. No mitral stenosis. Tricuspid Valve Tricuspid valve not well-visualized. Mild tricuspid regurgitation. No tricuspid stenosis. Aortic Valve Trileaflet aortic valve. Aortic valve is calcified. No aortic regurgitation. No hemodynamically significant aortic stenosis. Pulmonic Valve Normal pulmonic valve. Trace pulmonic regurgitation. No pulmonic stenosis. Great Vessels Normal sized aortic root. Normal ascending aorta. Pericardium/Pleural No pericardial effusion. MMode/2D Measurements & Calculations LVIDd: 4.6 cm IVSd: 1.3 cm Ao root diam: 3.6 cm LVIDs: 3.3 cm LVPWd: 1.2 cm FS: 29.3 % LAV(MOD-bp): 89.7 ml LVAd ap4: 27.7 cm2 SV(MOD-sp4): 42.9 ml LAV(MOD-bp) Indexed: 40.0 ml/m2 LVLd ap4: 7.4 cm SI(MOD-sp4): 19.1 ml/m2 LAV(MOD-sp2): 87.0 ml EDV(MOD-sp4): 88.6 ml LAV(MOD-sp4): 86.3 ml EDV(sp4-el): 88.0 ml LVAs ap4: 18.8 cm2 LVLs ap4: 6.7 cm ESV(MOD-sp4): 45.6 ml ESV(sp4-el): 44.8 ml EF(MOD-sp4): 48.5 % EF(sp4-el): 49.1 % SV(sp4-el): 43.2 ml LA A4 area: 25.3 cm2 LA dimension(2D): 4.9 cm RA A4 area: 31.2 cm2 Time Measurements MV dec time: 0.17 sec Doppler Measurements & Calculations MV E max ashish: 92.5 cm/sec Ao V2 max: 106.2 cm/sec LV V1 max: 94.8 cm/sec Ao max P.5 mmHg LV V1 max P.6 mmHg Ao V2 mean: 76.9 cm/sec LV V1 mean P.7 mmHg Ao mean P.6 mmHg LV V1 mean: 61.1 cm/sec Ao V2 VTI: 26.7 cm LV V1 VTI: 22.6 cm AV (velocity ratio): 0.84 PA V2 max: 94.6 cm/sec TR max ashish: 340.6 cm/sec PA V2 mean: 62.4 cm/sec TR max P.4 mmHg ECHO/Echo Complete Interpretation Summary Rhythm on examination consistent with rate- controlled atrial fibrillation. Left ventricular systolic function is mildly reduced, with EF by Cheek's bipl ane: 49%: Normal right ventricular systolic function Moderate biatrial dilation No hemodynamically significant valvular disease Ordering Physician: Ag Abdi Referring Physician: Ag Abdi Performed By: Loni Bright RCS
--- NOTE | 2025-08-16 18:45 | STRESSREP_ITS ---
Stress Test Report Pharmacologic myocardial perfusion stress test. Date Test Performed: 08/13/2025 [70]-year-old [female] with a history of [chest pain]. Resting EKG demonstrates [rate-controlled atrial fibrillation] with a rate of [73] bpm. Resting blood pressure is [132/84] mmHg, and decreased upon infusion to 116/80 . 0.4 mg of regadenoson was infused per usual protocol followed by rapid intravenous saline flush injection. Continuous EKG monitoring was performed. The maximum heart rate was [85] bpm which was [55]% of max impacted heart rate the maximum workload was [1] metabolic equivalent. At rest there were no ST or T wave changes noted to suggest ischemia and at peak infusion nonspecific ST changes were noted which did not meet the criteria for ischemia. No clinical angina is noted. The final blood pressure was [116/80]mmHg. Myocardial perfusion protocol. [15] mCi of technetium 99m sestamibi was injected at rest. 0.4 mg of regadenos on was infused per usual protocol. At peak infusion [45] mCi of technetium 99m sestamibi was injected stress images were obtained stress and rest images were reconstructed and compared in the short axis vertical long and horizontal long axis. Gated images were unable to be obtained due to arrhythmia. Perfusion SPECT analysis: There is a mild intensity, moderate-sized defect in the [id number] anterior wall. This defect is reversible and consistent with myocardial ischemia in this territory. Gated SPECT analysis: Unable to obtain gated images and ejection fraction secondary to arrhythmia. Conclusion: [Abnormal] pharmacologic myocardial perfusion stress test with evidence of ischemia in the anterior wall.
== END | disposition home or self-care (01) ==
LOC: CVS 06:28
PROVIDERS: PCP Internal Medicine; Referring Provider Student in an Organized Health Care Education/Training Program; Visit Provider Student in an Organized Health Care Education/Training Program
DX: R06.09 Other forms of dyspnea (principal); I34.0 Nonrheumatic mitral (valve) insufficiency
CPT/HCPCS: 78452; 93017; 93306; A9500; A4216; J2785